=== PATIENT | female | born 1975 | race Caucasian/White ===

== ENCOUNTER 2016-07-13 14:11 | Inpatient (IN) | payer OTHER ==
[2016-07-13 14:27] VITALS: BMI 21.9
--- NOTE | 2016-07-13 14:37 | C.PDOC ---
History Of Present Illness 41-year-old female, presents to the emergency department, sent from dialysis center for clot in fistula. Patients last dialysis was two days ago, comes in today because nurse was unable to access fistula due to clot. No other complaints at this time. Time Seen by Provider: 07/13/16 14:27 Chief Complaint (Nursing): Vascular Access Device Problem History Per: Patient, Other (PMD) History/Exam Limitations: no limitations Current Symptoms Are (Timing): Still Present Past Medical History Reviewed: Historical Data, Nursing Documentation, Vital Signs Vital Signs: Last Vital Signs Temp 98.1 F 07/14/16 06:00 Pulse 78 07/14/16 06:00 Resp 20 07/14/16 06:00 BP 166/72 H 07/14/16 06:00 Pulse Ox 97 07/14/16 03:30 - Medical History PMH: Anemia, Depression, Diabetes, Fractures (RT ANKLE), HTN, Pneumonia, End Stage Renal Disease (M-W-F), Chronic Kidney Disease, Seizures Denies: HIV, Sexually Transmitted Disease - [facility] Procedures FLUOROSCOPY OF INF VENA CAVA USING L OSM CONTRAST, GUIDANCE (05/29/16) INSERTION OF INFUSION DEV INTO INF VENA CAVA, PERC APPROACH (05/29/16) REMOVAL OF OTHER DEVICE ON RIGHT INGUINAL REGION (05/29/16) Family History: States: Unknown Family Hx - Social History Hx Tobacco Use: Yes Hx Alcohol Use: No Hx Substance Use: No - Immunization History Hx Tetanus Toxoid Vaccination: No Hx Influenza Vaccination: Yes Hx Pneumococcal Vaccination: No Review Of Systems Except As Marked, All Systems Reviewed And Found Negative. Constitutional: Negative for: Fever, Chills Cardiovascular: Negative for: Chest Pain Respiratory: Negative for: Cough, Shortness of Breath Gastrointestinal: Negative for: Nausea, Vomiting, Abdominal Pain Musculoskeletal: Negative for: Neck Pain, Back Pain Physical Exam - Physical Exam Appears: Non-toxic, No Acute Distress Skin: Warm, Dry, No Rash Head: Atraumatic, Normacephalic Eye(s): bilateral: Normal Inspection, PERRL Nose: Normal Oral Mucosa: Moist Lips: Normal Appearing Neck: Normal ROM Cardiovascular: Rhythm Regular Respiratory: Normal Breath Sounds, No Accessory Muscle Use Gastrointestinal/Abdominal: Soft, No Tenderness Extremity: Other (RIGHT UPPER EXT: DIALYSIS FISTULA W/ NO BRUIT. NO THRILL. PULSES INTACT) ED Course And Treatment - Laboratory Results Result Diagrams: 07/14/16 07:44 07/14/16 07:44 O2 Sat by Pulse Oximetry: 98 - Radiology CXR: Viewed By Me, Read By Radiologist CXR Interpretation: Yes: Other (PULMONARY VASCULAR CONGESTION) Medical Decision Making Medical Decision Making: Patient evaluated by Dr Finley in ED, states he will arrange for temporary access and prepare for dialysis tomorrow during hospitalization. Dr Velazquez saw patient at bedside in ED; discussed case with hospitalist who will admit patient under his service. Disposition - Disposition Disposition: HOSPITALIZED Disposition Time: 04:00 Condition: GOOD - Clinical Impression Clinical Impression: Complication of arteriovenous dialysis fistula - Scribe Statement The provider has reviewed the documentation as recorded by the Scribe Lisa Romero All medical record entries made by the Scribe were at my direction and personally dictated by me. I have reviewed the chart and agree that the record accurately reflects my personal performance of the history, physical exam, medical decision making, and the department course for this patient. I have also personally directed, reviewed, and agree with the discharge instructions and disposition.
--- NOTE | 2016-07-13 14:43 | CP.PCM.CON ---
History of Present Illness - History of Present Illness History of Present Illness: Admitted with clotted dialysis access. Needs dialysis today Awaiting surgery to evaluate for revision or dialysis cath. Will then schedule dialysis PMH: ESRD HTN DM 2 DIABETIC NEPHROPATHY SEC HPT PSH: AVF AV F REVISION FRACTURE ANKLE CONSULT DICTATED WILL ARRANGE DIALYSIS WHEN POSSIBLE Past Patient History - Infectious Disease Hx of Infectious Diseases: None - Past Medical History & Family History Past Medical History?: Yes - Past Social History Smoking Status: Never Smoked - CARDIAC Hx Hypertension: Yes - PULMONARY Hx Pneumonia: Yes - NEUROLOGICAL Hx Seizures: Yes - HEENT Hx HEENT Problems: Yes Hx Cataracts: Yes (HAD CUATE CATARACT SURGERY) - RENAL Hx Chronic Kidney Disease: Yes - ENDOCRINE/METABOLIC Hx Endocrine Disorders: Yes Hx Diabetes Mellitus Type 2: Yes - HEMATOLOGICAL/ONCOLOGICAL Hx Anemia: Yes Hx Human Immunodeficiency Virus (HIV): No - INTEGUMENTARY Hx Dermatological Problems: No - MUSCULOSKELETAL/RHEUMATOLOGICAL Hx Fractures: Yes (RT ANKLE) - GASTROINTESTINAL Hx Gastrointestinal Disorders: Yes Hx Ulcer: Yes - GENITOURINARY/GYNECOLOGICAL Hx Sexually Transmitted Disorders: No - PSYCHIATRIC Hx Depression: Yes Hx Substance Use: No - SURGICAL HISTORY Hx Surgeries: Yes Hx Arteriovenous Shunt: Yes (NON FUNC MITZI, NEW SIDNEY) Hx Cataract Extraction: Yes Hx Eye Surgery: Yes (RETINA RT) Hx Vascular Access Device: Yes (RIGHT FEMORAL PERMA CATH) - ANESTHESIA Hx Anesthesia: Yes Hx Anesthesia Reactions: No Hx Malignant Hyperthermia: No Meds Allergies/Adverse Reactions: Allergies Allergy/AdvReac Type Severity Reaction Status Date / Time No Known Allergies Allergy Verified 07/13/16 14:23 Results - Vital Signs Recent Vital Signs: Last Vital Signs Temp 98.2 F 07/13/16 14:27 Pulse 72 07/13/16 14:27 Resp 18 07/13/16 14:27 BP 179/67 H 07/13/16 14:27 Pulse Ox 98 07/13/16 14:36
--- NOTE | 2016-07-13 15:04 | CON ---
DATE: 07/13/2016 HISTORY OF PRESENT ILLNESS: The patient is a 41-year-old woman who presents with clotting for a righ t arm AV graft. The graft was recently placed by surgery approximately a month ago and was working w ell at dialysis recently when it clotted at dialysis today in the dialysis unit and the dialysis coul d not be performed. She was sent over to the Emergency Department. She is in now awaiting revision of the graft or dialysis catheter for dialysis which is due today. PAST MEDICAL HISTORY: End-stage renal disease, been on maintenance hemodialysis for 10 years, histor y of diabetic nephropathy, hypertension, and nephrosclerosis with secondary hyperparathyroidism. PAST SURGICAL HISTORY: Previous AV graft. MEDICATIONS: Include Renvela, labetalol, minoxidil, insulin, and Sensipar. She is not sure of all h er medications though. SOCIAL HISTORY: Negative for smoking, alcohol abuse or illicit drug use. FAMILY HISTORY: Negative for chronic kidney disease. REVIEW OF SYSTEMS: The patient was well recently. No shortness of breath on exertion, no chest pain . No fevers, no chills, no new rashes, no visual disturbances or hearing deficits. No change in bow el habits. No diarrhea. Other review of systems is all negative. PHYSICAL EXAMINATION: GENERAL: When seen, she is a well-developed woman in no acute distress. VITAL SIGNS: Blood pressure was 179/67, temperature 98.2, pulse 72, pulse ox 98% on room air. HEENT: She is anicteric. Mouth was clear. NECK: No JVD. LUNGS: Lung tubbs were clear. HEART: Regular rate and rhythm, no murmur. ABDOMEN: Soft, benign. No mass or organomegaly. EXTREMITIES: No peripheral edema. NEUROLOGIC: No focal deficits. She had a right upper arm fistula which a bruit was not audible. LABORATORY DATA: No labs are available as the patient just came to Emergency Department. IMPRESSION: Clotted arteriovenous graft, diabetic nephropathy, hypertension with nephrosclerosis and secondary hyperparathyroidism. PLAN: Surgery is to see the patient as soon as possible, either a catheter placement or revision of the graft and then I will schedule dialysis. I will await labs as well. We will follow up. Gerry Velazquez MD cc: [id number] TT: 07/13/2016 15:03:26 Confirmation # [id number] Dictation # [id number] tn
--- NOTE | 2016-07-13 15:46 | CP.PCM.HP ---
<Monika Monroy - Last Filed: 07/13/16 16:41> History of Present Illness - History of Present Illness History of Present Illness: Internal medicine H & P for Dr. Adithya Monroy, PGY-1 Pt S & E at bedside. 41 F w/PMH sig for HTN, DM, ESRD on HD admitted due to inability to access vasculature at dialysis. Pt attends dialysis MWF- today she was attending when the dialysis center could not access her RUE AVF due to clot- patient was sent to ED for evaluation. Patient was unable to receive dialysis today. Admits to peripheral neuropathy/burning pain in hands/feet, B/L hand numbness, oliguria, occasional constipation, occasional abdominal cramps with movement of torso, fatigue, RILEY, R foot drop, and occasional congestion at night. Denies N/V/F/C , SOB, CP, abdominal pain, changes in vision, diarrhea, dysuria, hematuria, hematochezia, cough, sore throat. PMH: DM, HTN, ESRD on HD (MWF) PSH; RLE AVF, RLE clot thrombolysis, cataract surgery All: NKA SH: Denies ETOH, tobacco, or illicit drug use PMD: Denies currently having one d/t insurance Nephro: [facility] [address] in Present on Admission - Present on Admission Any Indicators Present on Admission: Yes History of DVT/PE: Yes History of Uncontrolled Diabetes: No Urinary Catheter: No Decubitus Ulcer Present: No Review of Systems - Review of Systems All systems: reviewed and no additional remarkable complaints except - Constitutional Constitutional: Fatigue, Lethargy, Weakness. absent: Chills, Fever, Headache - EENT Eyes: absent: Blurred Vision, Change in Vision Ears: absent: Dizziness Nose/Mouth/Throat: Nasal Congestion (at night). absent: Sore Throat - Cardiovascular Cardiovascular: Dyspnea on Exertion. absent: Chest Pain, Leg Edema, Palpitations - Respiratory Respiratory: absent: Cough - Gastrointestinal Gastrointestinal: absent: Abdominal Pain, Hematemesis, Hematochezia, Nausea, Vomiting - Genitourinary Genitourinary: absent: Change in Urinary Stream, Dysuria - Musculoskeletal Musculoskeletal: Back Pain (occasional), Numbness, Tingling - Neurological Neurological: Tingling. absent: Dizziness, Headaches Past Patient History - Infectious Disease Hx of Infectious Diseases: None - Past Medical History & Family History Past Medical History?: Yes - Past Social History Smoking Status: Never Smoked - CARDIAC Hx Hypertension: Yes - PULMONARY Hx Pneumonia: Yes - NEUROLOGICAL Hx Seizures: Yes - HEENT Hx HEENT Problems: Yes Hx Cataracts: Yes (HAD CUATE CATARACT SURGERY) - RENAL Hx Chronic Kidney Disease: Yes - ENDOCRINE/METABOLIC Hx Endocrine Disorders: Yes Hx Diabetes Mellitus Type 2: Yes - HEMATOLOGICAL/ONCOLOGICAL Hx Anemia: Yes Hx Human Immunodeficiency Virus (HIV): No - INTEGUMENTARY Hx Dermatological Problems: No - MUSCULOSKELETAL/RHEUMATOLOGICAL Hx Fractures: Yes (RT ANKLE) - GASTROINTESTINAL Hx Gastrointestinal Disorders: Yes Hx Ulcer: Yes - GENITOURINARY/GYNECOLOGICAL Hx Sexually Transmitted Disorders: No - PSYCHIATRIC Hx Depression: Yes Hx Substance Use: No - SURGICAL HISTORY Hx Surgeries: Yes Hx Arteriovenous Shunt: Yes (NON FUNC MITZI, NEW SIDNEY) Hx Cataract Extraction: Yes Hx Eye Surgery: Yes (RETINA RT) Hx Vascular Access Device: Yes (RIGHT FEMORAL PERMA CATH) - ANESTHESIA Hx Anesthesia: Yes Hx Anesthesia Reactions: No Hx Malignant Hyperthermia: No Meds Allergies/Adverse Reactions: Allergies Allergy/AdvReac Type Severity Reaction Status Date / Time No Known Allergies Allergy Verified 07/13/16 14:23 Physical Exam - Constitutional Appears: Non-toxic, No Acute Distress - Head Exam Head Exam: ATRAUMATIC, NORMAL INSPECTION, NORMOCEPHALIC - Eye Exam Eye Exam: EOMI, Normal appearance, PERRL Pupil Exam: NORMAL ACCOMODATION, PERRL - ENT Exam ENT Exam: Mucous Membranes Moist, Normal Exam - Neck Exam Neck exam: Positive for: Full Rom, Normal Inspection - Respiratory Exam Respiratory Exam: Clear to Auscultation Bilateral, NORMAL BREATHING PATTERN. absent: Chest Wall Tenderness, Prolonged Expiratory Phase, Rales, Rhonchi, Wheezes, Respiratory Distress - Cardiovascular Exam Cardiovascular Exam: REGULAR RHYTHM, +S1, +S2 - GI/Abdominal Exam GI & Abdominal Exam: Normal Bowel Sounds, Soft. absent: Distended, Firm, Guarding, Hernia, Rigid, Tenderness - Extremities Exam Extremities exam: Negative for: pedal edema, tenderness Additional comments: Right upper extremity with AVF with palpable pulsation, no thrill appreciated, no audible bruit appreciated - Back Exam Back exam: FULL ROM, NORMAL INSPECTION. absent: CVA tenderness (L), CVA tenderness (R), paraspinal tenderness - Neurological Exam Neurological exam: Alert, CN II-XII Intact, Oriented x3 - Psychiatric Exam Psychiatric exam: Normal Affect, Normal Mood - Skin Skin Exam: Dry, Intact, Normal Color, Warm Results - Vital Signs Recent Vital Signs: Last Vital Signs Temp 98.2 F 07/13/16 14:27 Pulse 72 07/13/16 14:27 Resp 18 07/13/16 14:27 BP 179/67 H 07/13/16 14:27 Pulse Ox 98 07/13/16 14:36 - Labs Result Diagrams: 07/13/16 15:50 07/13/16 15:50 Assessment & Plan - Assessment and Plan (Free Text) Assessment: ESRD on HD For permacath tomorrow NPO after MN No anticoagulation at this time For AVF revision on Saturday NPO after MN Saturday will Hold anticoagulation Cont home meds: Lanthanum Carbonate, Renvela, Sensipar Vascular surgery consulted-[place] Nephro consulted- [facility] FU EKG FU CXR FU PT/PTT Type and screen FU CBC/CMP DM ISS Cont home med: Lantus Accuchecks HTN Cont home meds: Minoxidil, Clonidine, Labetalol Monitor GI/DVT ppx Pepcid Heparin- to be held after MN for OR in AM SCDs Ambulate Dispo Admit to med surg FU Pre-op evaluations Diabetic/renal diet VS Q4H OOBTC Ambulate OR in AM for permacath OR on Saturday for AVF revision DW attending - Date & Time Date: 07/13/16 Time: 15:45 <Jacek Knowles H - Last Filed: 07/13/16 19:08> Results - Vital Signs Recent Vital Signs: Last Vital Signs Temp 98.7 F 07/13/16 17:02 Pulse 78 07/13/16 17:02 Resp 18 07/13/16 17:02 BP 191/79 H 07/13/16 17:02 Pulse Ox 98 07/13/16 18:08 - Labs Result Diagrams: 07/13/16 15:50 07/13/16 15:50 Labs: Laboratory Results - last 24 hr 07/13/16 07/13/16 15:50 16:55 WBC 4.8 RBC 3.63 L Hgb 11.0 D Hct 33.4 L MCV 91.9 D MCH 30.3 MCHC 33.0 RDW 16.3 H Plt Count 161 MPV 10.1 Neut % (Auto) 44.3 L Lymph % (Auto) 36.6 [place] % (Auto) 11.7 H Eos % (Auto) 5.3 H Baso % (Auto) 2.1 H Neut # 2.1 Lymph # 1.8 [place] # 0.6 Eos # 0.3 Baso # 0.1 PT 12.4 H INR 1.1 APTT 33 Sodium 139 Potassium 5.0 Chloride 94 L Carbon Dioxide 27 Anion Gap 23 H BUN 50 H Creatinine 7.1 H D Est GFR ( Amer) 8 Est GFR (Non-Af Amer) 6 POC Glucose (mg/dL) 140 H Random Glucose 66 Calcium 7.5 L Total Bilirubin 1.0 AST 35 ALT 40 Alkaline Phosphatase 124 Total Protein 8.4 H Albumin 4.6 Globulin 3.8 Albumin/Globulin Ratio 1.2 Blood Type A POSITIVE Antibody Screen Negative Attending/Attestation - Attestation I have personally seen and examined this patient.: Yes I have fully participated in the care of the patient.: Yes I have reviewed all pertinent clinical information: Yes Notes (Text): Medical attending: Patient was seen and examined by me, agree with the above note by the medical assisting program director. The patient was not in any acute distress when I saw her. She was alert and oriented 3, the patient on examination does not have a palpable thrill of the right arm. She was sent to the ER after an unsuccessful attempt to have HD done. The patient has a ready been evaluated by, at this time there is plans for a permacath line tomorrow and then repair of the AVF this comming Saturday. thank you Jacek Knowles
[2016-07-13] MEDS ORDERED: LANTHANUM CARBONATE 500 MG PO SCH (16:00)
[2016-07-13 16:15] LABS: ALB/GLOB RATIO 1.2 (1.0-2.1); CALCIUM 7.5 mg/dl (8.6-10.4); TOTAL PROTEIN 8.4 g/dL (6.3-8.3)
[2016-07-13 16:29] LABS: BASO # 0.1 K/uL (0.0-0.2); BASO % 2.1 % (0.0-2.0); EOS # 0.3 K/uL (0.0-0.7); EOS % 5.3 % (0.0-4.0); HEMATOCRIT 33.4 % (34.0-47.0); LYMPH # 1.8 K/uL (1.0-4.3); LYMPH % 36.6 % (20.0-40.0); MEAN CORPUSCULAR HEMOGLOBIN 30.3 pg (27.0-31.0); MEAN PLATELET VOLUME 10.1 fL (7.2-11.7); MONO # 0.6 K/uL (0.0-0.8); MONO % 11.7 % (0.0-10.0); NRBC % 0.1 % (0.0-2.0); RED CELL DISTRIBUTION WIDTH 16.3 % (11.5-14.5); WHITE BLOOD COUNT 4.8 K/uL (4.8-10.8)
[2016-07-13 16:33] LABS: MEAN CELL VOLUME 91.9 fL (81.0-99.0)
--- NOTE | 2016-07-13 16:36 | RAD ---
HISTORY: pre op COMPARISON: Chest CT from 06/01/2016. FINDINGS: LUNGS: Pulmonary vascular congestion. PLEURA: No significant pleural effusion identified, no pneumothorax apparent. CARDIOVASCULAR: Normal. OSSEOUS STRUCTURES: Mildly increased density of the osseous structures could be related to patient's renal condition. VISUALIZED UPPER ABDOMEN: Upper abdomen is suboptimally evaluated. OTHER FINDINGS: Presumed vascular stent along the right shoulder. Surgical clips in the left axilla. IMPRESSION: Pulmonary vascular congestion.
[2016-07-13] MEDS: (Novolog Mix 70/30) Insulin Aspart/Insulin Aspar 100 units/ml SC SCH ×2 (16:56→21:50)
[2016-07-13 17:16] LABS: INR 1.1
[2016-07-13] MEDS ORDERED: Labetalol Hydrochloride 300 mg Tab PO STA (20:08)
[2016-07-13] MEDS: (Lantus) Insulin Glargine, Recombinant SC SCH (22:00)
[2016-07-13] MEDS ORDERED: (Lantus) Insulin Glargine, Recombinant SC SCH (22:00)
[2016-07-13] MEDS: Labetalol Hydrochloride 300 mg Tab PO SCH (22:00)
[2016-07-13] MEDS ORDERED: HYDROmorphone 1 mg/ml ISec IVP STA (22:50)
[2016-07-14] MEDS ORDERED: Sodium Chloride 0.9% 1,000 ML IV ONE ×2 (07:19)
[2016-07-14] MEDS ORDERED: ceFAZolin IV 1 gm in Dextrose 50 ML IVPB ONE (07:23)
[2016-07-14] MEDS ORDERED: HEPARIN-NS 5,000 UNITS/500 ML 500 ML IV ONE (07:24)
[2016-07-14] MEDS ORDERED: Lidocaine 1% Inj (20ml) ONE (07:24)
[2016-07-14] MEDS: (Novolog Mix 70/30) Insulin Aspart/Insulin Aspar 100 units/ml SC SCH ×4 (07:29→21:37)
[2016-07-14 07:58] LABS: BASO # 0.1 K/uL (0.0-0.2); BASO % 1.2 % (0.0-2.0); EOS # 0.3 K/uL (0.0-0.7); EOS % 4.1 % (0.0-4.0); HEMATOCRIT 32.5 % (34.0-47.0); LYMPH # 1.6 K/uL (1.0-4.3); LYMPH % 25.7 % (20.0-40.0); MEAN CELL VOLUME 92.3 fL (81.0-99.0); MEAN CORPUSCULAR HGB CONC 32.5 g/dL (33.0-37.0); MEAN PLATELET VOLUME 9.9 fL (7.2-11.7); MONO # 0.6 K/uL (0.0-0.8); MONO % 9.9 % (0.0-10.0); RED CELL DISTRIBUTION WIDTH 16.4 % (11.5-14.5); WHITE BLOOD COUNT 6.2 K/uL (4.8-10.8)
[2016-07-14 08:05] LABS: ALB/GLOB RATIO 1.2 (1.0-2.1); BILIRUBIN,TOTAL 0.8 mg/dL (0.2-1.3); TOTAL PROTEIN 7.7 g/dL (6.3-8.3)
[2016-07-14 08:06] LABS: CALCIUM 7.3 mg/dl (8.6-10.4)
[2016-07-14] MEDS ORDERED: Midazolam 2 MG/2 ML VIAL ONE (08:23)
[2016-07-14] MEDS ORDERED: Propofol 10 mg/ml Inj (20 ML) ONE (08:23)
--- NOTE | 2016-07-14 08:35 | CP.PCM.PN ---
Subjective - Date & Time of Evaluation Date of Evaluation: 07/14/16 Time of Evaluation: 08:00 - Subjective Subjective: unable to examine as pt in OR getting permcath cannot obtain ROS Objective - Vital Signs/Intake and Output Vital Signs (last 24 hours): Temp Pulse Resp BP Pulse Ox 98.1 F 78 20 166/72 H 97 07/14/16 06:00 07/14/16 06:00 07/14/16 06:00 07/14/16 06:00 07/14/16 03:30 Intake and Output: 07/14/16 07/14/16 06:59 18:59 Intake Total 120 Balance 120 - Medications Medications: Current Medications Acetaminophen (Tylenol 325mg Tab) 650 mg PO Q6 PRN PRN Reason: Pain, moderate (4-7) Cinacalcet (Sensipar) 90 mg PO DAILY [facility] Last Admin: 07/13/16 17:04 Dose: 90 mg Clonidine HCl (Catapres) 0.2 mg PO BID [facility] Last Admin: 07/13/16 18:16 Dose: 0.2 mg Famotidine (Pepcid) 20 mg PO BID [facility] Last Admin: 07/13/16 18:16 Dose: 20 mg Heparin Sodium (Porcine) (Heparin) 5,000 units SC Q12 [facility] Last Admin: 07/13/16 22:00 Dose: 5,000 units Insulin Aspart (Novolog Mix 70/30 (70/30 Units/Ml)) 0 units SC ACHS [facility] PRN Reason: Protocol Last Admin: 07/14/16 07:29 Dose: Not Given Insulin Glargine (Lantus) 6 unit SC HS [facility] Last Admin: 07/13/16 22:00 Dose: 6 u Labetalol HCl (Normodyne) 300 mg PO Q12 [facility] Last Admin: 07/13/16 22:00 Dose: 300 mg Minoxidil (Minoxidil) 2.5 mg PO BID [facility] Sevelamer Carbonate (Renvela) 800 mg PO WM [facility] - Labs Labs: 07/14/16 07:44 07/14/16 07:44 PT 12.4 SECONDS (9.7-12.2) H 07/13/16 16:55 INR 1.1 07/13/16 16:55 APTT 33 SECONDS (21-34) 07/13/16 16:55 Assessment and Plan - Assessment and Plan (Free Text) Assessment: ESRD with thrombosed chika permcath and HD today orders written
[2016-07-14] MEDS ORDERED: Labetalol 25mg/5ml Syringe ONE (08:41)
--- NOTE | 2016-07-14 08:50 | PCM.SURG1 ---
Surgeon's Initial Post Op Note - Surgeon's Notes Surgeon: Dr. Finley Hat Lining Blocker: Dr. Jasso PGY2 Type of Anesthesia: IV Sedation Anesthesia Administered By: Akash Pre-Operative Diagnosis: Renal Failure Operative Findings: same Post-Operative Diagnosis: same Operation Performed: Insertion of Right Femoral Dialysis Catheter Specimen/Specimens Removed: femoral dialysis catheter inserted Estimated Blood Loss: EBL {In ML}: 5 Blood Products Given: N/A Drains Used: No Drains Post-Op Condition: Good Date of Surgery/Procedure: 07/14/16 Time of Surgery/Procedure: 08:49
--- NOTE | 2016-07-14 09:30 | OP ---
PROCEDURE DATE: 07/14/2016 PREOPERATIVE DIAGNOSIS: Renal failure. POSTOPERATIVE DIAGNOSIS: Renal failure. PROCEDURE CARRIED OUT: Placement of right femoral dialysis catheter. SURGEON: Edward Finley Jr., MD. MANAGER STRATEGIC ALLIANCES: Dr. Jasso, resident. ANESTHESIOLOGIST: Dr. Bustos. INDICATIONS: The patient is a 41-year-old woman who recently had revision surgery on right arm who p resents with a clotted fistula. OPERATIVE FINDINGS: Using ultrasound guidance, the right common femoral vein was punctured. Under f luoroscopic control, the guidewire was advanced centrally. A dilator was passed over this and then t he catheter was positioned with the tip at the inferior vena cava. This was flushed with heparinized saline with good return. Blood loss for the procedure was minimal, less than 5 mL. OPERATION CARRIED OUT: Placement of femoral dialysis catheter. Ultrasound ____ of the groin showed the vein was approximately 13 mm in diameter with normal compress ibility and no evidence of intraluminal thrombosis. Edward Finley Jr., MD cc: [id number] TT: 07/14/2016 09:29:23 jn
[2016-07-14] MEDS: HYDROmorphone 0.5 mg/0.5 ml ISec IVP PRN ×3 (10:04→20:23)
[2016-07-14] MEDS: Labetalol Hydrochloride 300 mg Tab PO SCH ×2 (10:08→21:38)
--- NOTE | 2016-07-14 12:48 | CP.PCM.PN ---
<Herman Pulido - Last Filed: 07/14/16 19:03> Subjective - Date & Time of Evaluation Date of Evaluation: 07/14/16 Time of Evaluation: 10:00 - Subjective Subjective: PGY2 on medicine Dr. Knowles service: Pt seen and examined at bedside this morning after permacath placement. Pt complains pain at permacath site and controlled with medication. Pt otherwise have no other complaints at the time. Objective - Vital Signs/Intake and Output Vital Signs (last 24 hours): Temp Pulse Resp BP Pulse Ox 98.2 F 68 16 135/80 98 07/14/16 11:35 07/14/16 11:35 07/14/16 11:35 07/14/16 12:35 07/14/16 11:50 Intake and Output: 07/14/16 07/14/16 06:59 18:59 Intake Total 120 250 Balance 120 250 - Medications Medications: Current Medications Acetaminophen (Tylenol 325mg Tab) 650 mg PO Q6 PRN PRN Reason: Pain, moderate (4-7) Cinacalcet (Sensipar) 90 mg PO DAILY [facility] Last Admin: 07/14/16 10:08 Dose: Not Given Clonidine HCl (Catapres) 0.2 mg PO Q8H [facility] Last Admin: 07/14/16 10:07 Dose: Not Given Famotidine (Pepcid) 20 mg PO BID [facility] Last Admin: 07/14/16 10:08 Dose: Not Given Heparin Sodium (Porcine) (Heparin) 5,000 units SC Q12 [facility] Last Admin: 07/14/16 10:07 Dose: Not Given Hydromorphone HCl (Dilaudid) 0.5 mg IVP Q3H PRN PRN Reason: Pain, moderate (4-7) Last Admin: 07/14/16 10:04 Dose: 0.5 mg Insulin Aspart (Novolog Mix 70/30 (70/30 Units/Ml)) 0 units SC ACHS [facility] PRN Reason: Protocol Last Admin: 07/14/16 11:39 Dose: Not Given Insulin Glargine (Lantus) 6 unit SC HS [facility] Last Admin: 07/13/16 22:00 Dose: 6 u Labetalol HCl (Normodyne) 300 mg PO Q12 [facility] Last Admin: 07/14/16 10:08 Dose: Not Given Minoxidil (Minoxidil) 2.5 mg PO BID [facility] Last Admin: 07/14/16 10:08 Dose: Not Given Sevelamer Carbonate (Renvela) 800 mg PO [facility] - Labs Labs: 07/14/16 07:44 07/14/16 07:44 PT 12.4 SECONDS (9.7-12.2) H 07/13/16 16:55 INR 1.1 07/13/16 16:55 APTT 33 SECONDS (21-34) 07/13/16 16:55 - Constitutional Appears: Non-toxic, No Acute Distress - Head Exam Head Exam: NORMAL INSPECTION, NORMOCEPHALIC - Eye Exam Eye Exam: Normal appearance Pupil Exam: NORMAL ACCOMODATION - ENT Exam ENT Exam: Mucous Membranes Moist - Respiratory Exam Respiratory Exam: Clear to Ausculation Bilateral, NORMAL BREATHING PATTERN. absent: Rhonchi, Wheezes - Cardiovascular Exam Cardiovascular Exam: REGULAR RHYTHM, +S1, +S2. absent: Gallop, Rubs - GI/Abdominal Exam GI & Abdominal Exam: Soft, Normal Bowel Sounds - Extremities Exam Extremities Exam: absent: Pedal Edema Additional comments: right thigh permacath dressing C/D/I - Neurological Exam Neurological Exam: Alert, Awake, Oriented x3 Assessment and Plan - Assessment and Plan (Free Text) Assessment: ESRD on HD For AVF revision on Saturday will Hold anticoagulation Cont home meds: Lanthanum Carbonate, Renvela, Sensipar Vascular surgery consulted-[facility] Nephro consulted- [facility] HD once 07/14 DM ISS Cont home med: Lantus Accuchecks HTN Cont home meds: Minoxidil, Clonidine, Labetalol Clonidine increased to Q8H from BID Monitor GI/DVT ppx Pepcid Heparin- to be held after SCDs Ambulate Dispo Admit to med surg FU Pre-op evaluations Diabetic/renal diet VS Q4H OOBTC Ambulate OR on Saturday for AVF revision <Jacek Knowles H - Last Filed: 07/15/16 08:13> Objective - Vital Signs/Intake and Output Vital Signs (last 24 hours): Temp Pulse Resp BP Pulse Ox 97.9 F 80 20 180/81 H 95 07/15/16 02:00 07/15/16 02:00 07/15/16 02:00 07/15/16 02:00 07/15/16 02:00 Intake and Output: 07/15/16 07/15/16 06:59 18:59 Intake Total 300 Balance 300 - Medications Medications: Current Medications Acetaminophen (Tylenol 325mg Tab) 650 mg PO Q6 PRN PRN Reason: Pain, moderate (4-7) Cinacalcet (Sensipar) 90 mg PO DAILY [facility] Last Admin: 07/14/16 10:08 Dose: Not Given Clonidine HCl (Catapres) 0.2 mg PO Q8H [facility] Last Admin: 07/15/16 02:21 Dose: 0.2 mg Famotidine (Pepcid) 20 mg PO BID [facility] Last Admin: 07/14/16 17:25 Dose: 20 mg Heparin Sodium (Porcine) (Heparin) 5,000 units SC Q12 [facility] Hydromorphone HCl (Dilaudid) 0.5 mg IVP Q3H PRN PRN Reason: Pain, moderate (4-7) Last Admin: 07/15/16 02:24 Dose: 0.5 mg Insulin Aspart (Novolog Mix 70/30 (70/30 Units/Ml)) 0 units SC ACHS [facility] PRN Reason: Protocol Last Admin: 07/14/16 21:37 Dose: Not Given Insulin Glargine (Lantus) 6 unit SC HS [facility] Last Admin: 07/14/16 21:38 Dose: 6 u Labetalol HCl (Normodyne) 300 mg PO Q12 [facility] Last Admin: 07/14/16 21:38 Dose: 300 mg Minoxidil (Minoxidil) 2.5 mg PO BID [facility] Last Admin: 07/14/16 17:24 Dose: 2.5 mg Sevelamer Carbonate (Renvela) 800 mg PO WM [facility] Last Admin: 07/14/16 17:24 Dose: 800 mg - Labs Labs: 07/15/16 07:09 07/15/16 07:09 PT 12.4 SECONDS (9.7-12.2) H 07/13/16 16:55 INR 1.1 07/13/16 16:55 APTT 33 SECONDS (21-34) 07/13/16 16:55 Attending/Attestation - Attestation I have personally seen and examined this patient.: Yes I have fully participated in the care of the patient.: Yes I have reviewed all pertinent clinical information, including history, physical exam and plan: Yes Notes (Text): Medical Attending: Patient was seen and examined by me. Agree with the above note by the resident. The patient has just had permacath placement. Will be getting HD later this day. This Sunday 07/16 there are plans for revision of the patient's AVF. thank you Jacek Knowles
--- NOTE | 2016-07-14 12:53 | RAD ---
PROCEDURE: Intraoperative fluoroscopy HISTORY: CLOTTED AV SHUNT COMPARISON: Not available TECHNIQUE: Intraoperative fluoroscopy was provided for dialysis catheter insertion. Total time of fluoroscopy was 23.4 seconds. FINDINGS: Two fluoroscopic spot films are submitted. Films are on file for review peer IMPRESSION: Fluoroscopy provided.
[2016-07-14] MEDS: (Lantus) Insulin Glargine, Recombinant SC SCH (21:38)
[2016-07-15] MEDS: HYDROmorphone 0.5 mg/0.5 ml ISec IVP PRN ×3 (02:24→21:06)
[2016-07-15] MEDS: (Novolog Mix 70/30) Insulin Aspart/Insulin Aspar 100 units/ml SC SCH ×4 (07:30→21:11)
[2016-07-15 07:39] LABS: POTASSIUM 4.9 mmol/L (3.6-5.2)
[2016-07-15 07:41] LABS: ALB/GLOB RATIO 1.3 (1.0-2.1); BILIRUBIN,TOTAL 0.9 mg/dL (0.2-1.3); TOTAL PROTEIN 7.6 g/dL (6.3-8.3)
[2016-07-15 07:42] LABS: CALCIUM 8.1 mg/dl (8.6-10.4)
[2016-07-15 07:52] LABS: MEAN PLATELET VOLUME 10.6 fL (7.2-11.7); WHITE BLOOD COUNT 6.4 K/uL (4.8-10.8)
[2016-07-15 07:57] LABS: BASO # 0.1 K/uL (0.0-0.2); BASO % 1.5 % (0.0-2.0); EOS # 0.4 K/uL (0.0-0.7); HEMATOCRIT 32.7 % (34.0-47.0); LYMPH # 1.9 K/uL (1.0-4.3); LYMPH % 29.9 % (20.0-40.0); MEAN CORPUSCULAR HEMOGLOBIN 30.1 pg (27.0-31.0); MEAN CORPUSCULAR HGB CONC 32.7 g/dL (33.0-37.0); MONO # 0.8 K/uL (0.0-0.8); MONO % 11.7 % (0.0-10.0); NRBC % 0.1 % (0.0-2.0); RED CELL DISTRIBUTION WIDTH 15.7 % (11.5-14.5)
[2016-07-15] MEDS: Labetalol Hydrochloride 300 mg Tab PO SCH ×2 (09:02→21:09)
--- NOTE | 2016-07-15 10:25 | CP.PCM.PN ---
<Herman Pulido - Last Filed: 07/15/16 12:38> Subjective - Date & Time of Evaluation Date of Evaluation: 07/16/15 Time of Evaluation: 10:00 - Subjective Subjective: PGY2 on medicine Dr. Knowles service: Patient seen and examined at bedside. S/P insertion of femoral dialysis catheter POD#1. Patient also had HD yesterday. Patient complains pain at femoral catheter site but controlled with pain medications. Patient also complains increased swelling and pain on her right forearm. No other complaints at this time. Objective - Vital Signs/Intake and Output Vital Signs (last 24 hours): Temp Pulse Resp BP Pulse Ox 97.9 F 80 20 180/81 H 95 07/15/16 02:00 07/15/16 02:00 07/15/16 02:00 07/15/16 02:00 07/15/16 02:00 Intake and Output: 07/15/16 07/15/16 06:59 18:59 Intake Total 300 Balance 300 - Medications Medications: Current Medications Acetaminophen (Tylenol 325mg Tab) 650 mg PO Q6 PRN PRN Reason: Pain, moderate (4-7) Cinacalcet (Sensipar) 90 mg PO DAILY [facility] Last Admin: 07/15/16 09:02 Dose: 90 mg Clonidine HCl (Catapres) 0.2 mg PO Q8H [facility] Last Admin: 07/15/16 09:03 Dose: 0.2 mg Famotidine (Pepcid) 20 mg PO BID [facility] Last Admin: 07/15/16 09:03 Dose: 20 mg Heparin Sodium (Porcine) (Heparin) 5,000 units SC Q12 [facility] Hydromorphone HCl (Dilaudid) 0.5 mg IVP Q3H PRN PRN Reason: Pain, moderate (4-7) Last Admin: 07/15/16 02:24 Dose: 0.5 mg Insulin Aspart (Novolog Mix 70/30 (70/30 Units/Ml)) 0 units SC ACHS [facility] PRN Reason: Protocol Last Admin: 07/15/16 07:30 Dose: Not Given Insulin Glargine (Lantus) 6 unit SC HS [facility] Last Admin: 07/14/16 21:38 Dose: 6 u Labetalol HCl (Normodyne) 300 mg PO Q12 [facility] Last Admin: 07/15/16 09:02 Dose: 300 mg Minoxidil (Minoxidil) 2.5 mg PO BID [facility] Last Admin: 07/15/16 09:02 Dose: 2.5 mg Sevelamer Carbonate (Renvela) 800 mg PO TIDCC [facility] - Labs Labs: 07/15/16 07:09 07/15/16 07:09 PT 12.4 SECONDS (9.7-12.2) H 07/13/16 16:55 INR 1.1 07/13/16 16:55 APTT 33 SECONDS (21-34) 07/13/16 16:55 - Constitutional Appears: Non-toxic, No Acute Distress - Head Exam Head Exam: NORMAL INSPECTION, NORMOCEPHALIC - Eye Exam Eye Exam: Normal appearance Pupil Exam: NORMAL ACCOMODATION - ENT Exam ENT Exam: Mucous Membranes Moist - Respiratory Exam Respiratory Exam: Clear to Ausculation Bilateral, NORMAL BREATHING PATTERN. absent: Rhonchi, Wheezes - Cardiovascular Exam Cardiovascular Exam: REGULAR RHYTHM, +S1, +S2. absent: Gallop, Rubs - GI/Abdominal Exam GI & Abdominal Exam: Soft, Normal Bowel Sounds - Extremities Exam Extremities Exam: absent: Pedal Edema Additional comments: right forearm mildly swollen, radial pulse slightly diminished compared to left arm. decreased sensation compared to left forearm. Strength intact. Right femoral catheter site dressing C/D/I - Neurological Exam Neurological Exam: Alert, Awake, Oriented x3 - Psychiatric Exam Psychiatric exam: Normal Mood Assessment and Plan - Assessment and Plan (Free Text) Assessment: ESRD on HD For AVF revision on Saturday will Hold anticoagulation Cont home meds: Lanthanum Carbonate, Renvela, Sensipar Vascular surgery consulted-[place] Nephro consulted- [facility] HD once 07/14 DM ISS Cont home med: Lantus Accuchecks HTN Cont home meds: Minoxidil, Clonidine, Labetalol Clonidine increased to Q8H from BID Monitor GI/DVT ppx Pepcid Heparin on hold for Saturday procedure SCDs Ambulate Dispo Admit to med surg FU Pre-op evaluations Diabetic/renal diet VS Q4H OOBTC Ambulate OR on Saturday for AVF revision <Jacek Knowles H - Last Filed: 07/15/16 14:43> Objective - Vital Signs/Intake and Output Vital Signs (last 24 hours): Temp Pulse Resp BP Pulse Ox 98.7 F 76 20 186/70 H 98 07/15/16 08:00 07/15/16 08:00 07/15/16 08:00 07/15/16 08:00 07/15/16 08:00 Intake and Output: 07/15/16 07/15/16 06:59 18:59 Intake Total 300 Balance 300 - Medications Medications: Current Medications Acetaminophen (Tylenol 325mg Tab) 650 mg PO Q6 PRN PRN Reason: Pain, moderate (4-7) Cinacalcet (Sensipar) 90 mg PO DAILY [facility] Last Admin: 07/15/16 09:02 Dose: 90 mg Clonidine HCl (Catapres) 0.2 mg PO Q8H [facility] Last Admin: 07/15/16 09:03 Dose: 0.2 mg Famotidine (Pepcid) 20 mg PO BID [facility] Last Admin: 07/15/16 09:03 Dose: 20 mg Heparin Sodium (Porcine) (Heparin) 5,000 units SC Q12 [facility] Last Admin: 07/15/16 12:11 Dose: 5,000 units Hydromorphone HCl (Dilaudid) 0.5 mg IVP Q3H PRN PRN Reason: Pain, moderate (4-7) Last Admin: 07/15/16 12:16 Dose: 0.5 mg Insulin Aspart (Novolog Mix 70/30 (70/30 Units/Ml)) 0 units SC ACHS [facility] PRN Reason: Protocol Last Admin: 07/15/16 12:32 Dose: Not Given Insulin Glargine (Lantus) 6 unit SC HS [facility] Last Admin: 07/14/16 21:38 Dose: 6 u Labetalol HCl (Normodyne) 300 mg PO Q12 [facility] Last Admin: 07/15/16 09:02 Dose: 300 mg Minoxidil (Minoxidil) 2.5 mg PO BID [facility] Last Admin: 07/15/16 09:02 Dose: 2.5 mg Sevelamer Carbonate (Renvela) 800 mg PO TIDCC [facility] Last Admin: 07/15/16 12:10 Dose: 800 mg - Labs Labs: 07/15/16 07:09 07/15/16 13:22 PT 12.4 SECONDS (9.7-12.2) H 07/13/16 16:55 INR 1.1 03/24/17 16:55 APTT 33 SECONDS (21-34) 07/13/16 16:55 Attending/Attestation - Attestation I have personally seen and examined this patient.: Yes I have fully participated in the care of the patient.: Yes I have reviewed all pertinent clinical information, including history, physical exam and plan: Yes Notes (Text): 07/15/16 14:42 Medical Attending: Patient was seen and examined by me. Agree with the above note. The patient explains she feels much better after getting HD. Currently has dialysis cathter Doreen Rodriguez for revision of her AVF. Currently feels well. thank you Jacek Knowles
--- NOTE | 2016-07-15 12:47 | CP.PCM.PN ---
Subjective - Date & Time of Evaluation Date of Evaluation: 07/15/16 Time of Evaluation: 12:46 - Subjective Subjective: for lysis of fistula saturday Objective - Vital Signs/Intake and Output Vital Signs (last 24 hours): Temp Pulse Resp BP Pulse Ox 98.7 F 76 20 186/70 H 98 07/15/16 08:00 07/15/16 08:00 07/15/16 08:00 07/15/16 08:00 07/15/16 08:00 Intake and Output: 07/15/16 07/15/16 06:59 18:59 Intake Total 300 Balance 300 - Medications Medications: Current Medications Acetaminophen (Tylenol 325mg Tab) 650 mg PO Q6 PRN PRN Reason: Pain, moderate (4-7) Cinacalcet (Sensipar) 90 mg PO DAILY [facility] Last Admin: 07/15/16 09:02 Dose: 90 mg Clonidine HCl (Catapres) 0.2 mg PO Q8H [facility] Last Admin: 07/15/16 09:03 Dose: 0.2 mg Famotidine (Pepcid) 20 mg PO BID [facility] Last Admin: 07/15/16 09:03 Dose: 20 mg Heparin Sodium (Porcine) (Heparin) 5,000 units SC Q12 [facility] Last Admin: 07/15/16 12:11 Dose: 5,000 units Hydromorphone HCl (Dilaudid) 0.5 mg IVP Q3H PRN PRN Reason: Pain, moderate (4-7) Last Admin: 07/15/16 12:16 Dose: 0.5 mg Insulin Aspart (Novolog Mix 70/30 (70/30 Units/Ml)) 0 units SC ACHS [facility] PRN Reason: Protocol Last Admin: 07/15/16 12:32 Dose: Not Given Insulin Glargine (Lantus) 6 unit SC HS [facility] Last Admin: 07/14/16 21:38 Dose: 6 u Labetalol HCl (Normodyne) 300 mg PO Q12 [facility] Last Admin: 07/15/16 09:02 Dose: 300 mg Minoxidil (Minoxidil) 2.5 mg PO BID [facility] Last Admin: 07/15/16 09:02 Dose: 2.5 mg Sevelamer Carbonate (Renvela) 800 mg PO TIDCC [facility] Last Admin: 07/15/16 12:10 Dose: 800 mg - Labs Labs: 03/26/17 07:09 07/15/16 07:09 PT 12.4 SECONDS (9.7-12.2) H 07/13/16 16:55 INR 1.1 07/13/16 16:55 APTT 33 SECONDS (21-34) 07/13/16 16:55
[2016-07-15 12:51] LABS: POTASSIUM 6.2 mmol/L (3.6-5.2)
[2016-07-15 12:53] LABS: CALCIUM 8.4 mg/dl (8.6-10.4); PHOSPHOROUS 7.8 mg/dL (2.5-4.5)
[2016-07-15 13:37] LABS: POTASSIUM 5.8 mmol/L (3.6-5.2)
[2016-07-15 13:40] LABS: CALCIUM 8.3 mg/dl (8.6-10.4)
[2016-07-15] MEDS ORDERED: Sod Polystyrene Sulf 15 gm/60 ml Oral Susp PO ONE (14:15)
[2016-07-15] MEDS: (Lantus) Insulin Glargine, Recombinant SC SCH (21:13)
[2016-07-16] MEDS: HYDROmorphone 0.5 mg/0.5 ml ISec IVP PRN ×5 (05:56→21:15)
[2016-07-16] MEDS: (Novolog Mix 70/30) Insulin Aspart/Insulin Aspar 100 units/ml SC SCH ×4 (08:04→22:20)
[2016-07-16 09:31] LABS: BASO # 0.1 K/uL (0.0-0.2); BASO % 1.4 % (0.0-2.0); EOS # 0.3 K/uL (0.0-0.7); EOS % 6.5 % (0.0-4.0); LYMPH # 1.5 K/uL (1.0-4.3); LYMPH % 28.5 % (20.0-40.0); MEAN CELL VOLUME 92.2 fL (81.0-99.0); MEAN CORPUSCULAR HEMOGLOBIN 29.9 pg (27.0-31.0); MEAN CORPUSCULAR HGB CONC 32.5 g/dL (33.0-37.0); MEAN PLATELET VOLUME 10.2 fL (7.2-11.7); MONO # 0.5 K/uL (0.0-0.8); MONO % 9.8 % (0.0-10.0); NRBC % 0.1 % (0.0-2.0); RED CELL DISTRIBUTION WIDTH 16.2 % (11.5-14.5); WHITE BLOOD COUNT 5.1 K/uL (4.8-10.8)
[2016-07-16 09:44] LABS: POTASSIUM 5.4 mmol/L (3.6-5.2)
[2016-07-16 09:46] LABS: ALB/GLOB RATIO 1.3 (1.0-2.1); BILIRUBIN,TOTAL 0.6 mg/dL (0.2-1.3); CALCIUM 7.8 mg/dl (8.6-10.4); TOTAL PROTEIN 7.5 g/dL (6.3-8.3)
--- NOTE | 2016-07-16 10:34 | CP.PCM.PN ---
<Monika Monroy - Last Filed: 07/16/16 10:32> Subjective - Date & Time of Evaluation Date of Evaluation: 07/16/16 Time of Evaluation: 07:30 - Subjective Subjective: Internal medicine progress note for Dr. Marco Antonio Monroy, PGY-1 Pt S & E at bedside. Pt c/o whole body itching overnight, continues to have occasional whole body pain- was continued on home pain regimen. No other complaints overnight, was NPO after MN for OR today. Objective - Vital Signs/Intake and Output Vital Signs (last 24 hours): Temp Pulse Resp BP Pulse Ox 98.1 F 70 18 132/60 98 07/16/16 08:50 07/16/16 08:50 07/16/16 08:50 07/16/16 10:20 07/16/16 08:50 Intake and Output: 07/16/16 07/16/16 06:59 18:59 Intake Total 500 Balance 500 - Medications Medications: Current Medications Acetaminophen (Tylenol 325mg Tab) 650 mg PO Q6 PRN PRN Reason: Pain, moderate (4-7) Cinacalcet (Sensipar) 90 mg PO DAILY [facility] Last Admin: 07/15/16 09:02 Dose: 90 mg Clonidine HCl (Catapres) 0.2 mg PO Q8H [facility] Last Admin: 07/16/16 01:56 Dose: 0.2 mg Diphenhydramine HCl (Benadryl) 25 mg PO Q8H PRN PRN Reason: Itching / Pruritus Famotidine (Pepcid) 20 mg PO BID [facility] Last Admin: 07/15/16 17:09 Dose: 20 mg Heparin Sodium (Porcine) (Heparin) 5,000 units SC Q12 [facility] Last Admin: 07/15/16 12:11 Dose: 5,000 units Hydromorphone HCl (Dilaudid) 0.5 mg IVP Q3H PRN PRN Reason: Pain, moderate (4-7) Last Admin: 07/16/16 05:56 Dose: 0.5 mg Insulin Aspart (Novolog Mix 70/30 (70/30 Units/Ml)) 0 units SC ACHS [facility] PRN Reason: Protocol Last Admin: 07/16/16 08:04 Dose: Not Given Insulin Glargine (Lantus) 6 unit SC HS [facility] Last Admin: 07/15/16 21:13 Dose: 6 u Labetalol HCl (Normodyne) 300 mg PO Q12 [facility] Last Admin: 07/15/16 21:09 Dose: 300 mg Minoxidil (Minoxidil) 2.5 mg PO BID [facility] Last Admin: 07/15/16 17:10 Dose: 2.5 mg Sevelamer Carbonate (Renvela) 800 mg PO TIDCC [facility] Last Admin: 07/15/16 17:09 Dose: 800 mg - Labs Labs: 07/16/16 09:26 07/16/16 09:26 PT 12.4 SECONDS (9.7-12.2) H 07/13/16 16:55 INR 1.1 07/13/16 16:55 APTT 33 SECONDS (21-34) 07/13/16 16:55 - Constitutional Appears: Non-toxic, No Acute Distress - Head Exam Head Exam: ATRAUMATIC, NORMAL INSPECTION, NORMOCEPHALIC - Eye Exam Eye Exam: EOMI, Normal appearance, PERRL Pupil Exam: NORMAL ACCOMODATION, PERRL - ENT Exam ENT Exam: Mucous Membranes Moist, Normal Exam - Neck Exam Neck Exam: Full ROM, Normal Inspection - Respiratory Exam Respiratory Exam: Clear to Ausculation Bilateral, NORMAL BREATHING PATTERN. absent: Chest Wall Tenderness, Decreased Breath Sounds, Prolonged Expiratory Phase, Rales, Rhonchi, Wheezes, Stridor - Cardiovascular Exam Cardiovascular Exam: REGULAR RHYTHM, +S1, +S2 - GI/Abdominal Exam GI & Abdominal Exam: Soft, Normal Bowel Sounds. absent: Tenderness - Extremities Exam Extremities Exam: Full ROM, Normal Inspection - Back Exam Back Exam: NORMAL INSPECTION - Neurological Exam Neurological Exam: Alert, Awake, CN II-XII Intact, Oriented x3 - Psychiatric Exam Psychiatric exam: Normal Affect, Normal Mood - Skin Skin Exam: Dry, Intact, Normal Color, Warm Assessment and Plan - Assessment and Plan (Free Text) Assessment: ESRD on HD -AVF thrombosis Anticoagulation held Cont home meds: Lanthanum Carbonate, Renvela, Sensipar Vascular surgery consulted-[facility] - OR today for AVF thrombolysis Nephro consulted- [facility]- HD MWF Started Benadryl 25mg Q8H PRN itching DM ISS Cont home med: Lantus Accuchecks HTN Cont home meds: Minoxidil, Clonidine, Labetalol Clonidine increased to Q8H from BID Monitor GI/DVT ppx Pepcid Heparin on hold for OR today SCDs Ambulate Dispo OR today Post OR mgmt as per vascular surgery Diabetic/renal diet Ambulate DW attending <Simeon Dickinson - Last Filed: 07/17/16 13:52> Objective - Vital Signs/Intake and Output Vital Signs (last 24 hours): Temp Pulse Resp BP Pulse Ox 97.4 F L 72 20 216/72 H 98 07/17/16 08:00 07/17/16 08:00 07/17/16 08:00 07/17/16 08:00 07/17/16 08:00 Intake and Output: 07/17/16 07/17/16 06:59 18:59 Intake Total 540 400 Balance 540 400 - Medications Medications: Current Medications Acetaminophen (Tylenol 325mg Tab) 650 mg PO Q6 PRN PRN Reason: Pain, moderate (4-7) Cinacalcet (Sensipar) 90 mg PO DAILY [facility] Last Admin: 07/17/16 09:31 Dose: 90 mg Clonidine HCl (Catapres) 0.3 mg PO Q8H [facility] Last Admin: 07/17/16 11:04 Dose: Not Given Diphenhydramine HCl (Benadryl) 25 mg PO Q8H PRN PRN Reason: Itching / Pruritus Last Admin: 07/17/16 08:41 Dose: 25 mg Epoetin Dewey (Procrit) 10,000 unit IV MWF [facility] Famotidine (Pepcid) 20 mg PO DAILY [facility] Last Admin: 07/17/16 09:32 Dose: 20 mg Heparin Sodium (Porcine) (Heparin) 5,000 units SC Q12 [facility] Last Admin: 07/17/16 09:32 Dose: 5,000 units Hydromorphone HCl (Dilaudid) 0.5 mg IVP Q3H PRN PRN Reason: Pain, moderate (4-7) Last Admin: 07/17/16 08:41 Dose: 0.5 mg Insulin Aspart (Novolog) 0 unit SC ACHS [facility] PRN Reason: Protocol Last Admin: 07/17/16 11:53 Dose: 2 unit Insulin Glargine (Lantus) 6 unit SC HS [facility] Last Admin: 07/16/16 22:20 Dose: 6 u Labetalol HCl (Normodyne) 300 mg PO Q12 [facility] Minoxidil (Loniten) 10 mg PO Q12H [facility] Last Admin: 07/17/16 08:32 Dose: 10 mg Sevelamer Carbonate (Renvela) 2,400 mg PO TIDCC [facility] Last Admin: 07/17/16 13:04 Dose: 2,400 mg - Labs Labs: 07/17/16 11:24 07/17/16 11:24 PT 12.4 SECONDS (9.7-12.2) H 07/13/16 16:55 INR 1.1 07/13/16 16:55 APTT 33 SECONDS (21-34) 07/13/16 16:55 Attending/Attestation - Attestation I have personally seen and examined this patient.: Yes I have fully participated in the care of the patient.: Yes I have reviewed all pertinent clinical information, including history, physical exam and plan: Yes Notes (Text): 07/17/16 13:52 Patient was seen and examined at bedside with the resident Patient is for hemodialysis today Plan for the thrombectomy as per vascular surgery I agree with the above history and physical and assessment/plan by the resident
[2016-07-16] MEDS: Labetalol Hydrochloride 300 mg Tab PO SCH ×2 (10:55→22:18)
--- NOTE | 2016-07-16 11:43 | CP.PCM.PN ---
Subjective - Date & Time of Evaluation Date of Evaluation: 07/16/16 Time of Evaluation: 11:41 - Subjective Subjective: Seen at dialysis now BP stable To Uf 3000ml For av f thrombectomy today post HD c/o pruritis Phos levels have been elevated No n, v, SOB, HAs, diarrhea Objective - Vital Signs/Intake and Output Vital Signs (last 24 hours): Temp Pulse Resp BP Pulse Ox 98.1 F 70 18 132/62 98 07/16/16 08:50 07/16/16 08:50 07/16/16 08:50 07/16/16 11:20 07/16/16 08:50 Intake and Output: 07/16/16 07/16/16 06:59 18:59 Intake Total 500 Balance 500 - Medications Medications: Current Medications Acetaminophen (Tylenol 325mg Tab) 650 mg PO Q6 PRN PRN Reason: Pain, moderate (4-7) Cinacalcet (Sensipar) 90 mg PO DAILY [facility] Last Admin: 07/16/16 10:56 Dose: Not Given Clonidine HCl (Catapres) 0.2 mg PO Q8H [facility] Last Admin: 07/16/16 10:55 Dose: Not Given Diphenhydramine HCl (Benadryl) 25 mg PO Q8H PRN PRN Reason: Itching / Pruritus Epoetin Dewey (Procrit) 10,000 unit IV MWF [facility] Famotidine (Pepcid) 20 mg PO BID [facility] Last Admin: 07/16/16 10:55 Dose: Not Given Heparin Sodium (Porcine) (Heparin) 5,000 units SC Q12 [facility] Last Admin: 07/15/16 12:11 Dose: 5,000 units Hydromorphone HCl (Dilaudid) 0.5 mg IVP Q3H PRN PRN Reason: Pain, moderate (4-7) Last Admin: 07/16/16 05:56 Dose: 0.5 mg Insulin Aspart (Novolog Mix 70/30 (70/30 Units/Ml)) 0 units SC ACHS [facility] PRN Reason: Protocol Last Admin: 07/16/16 08:04 Dose: Not Given Insulin Glargine (Lantus) 6 unit SC HS [facility] Last Admin: 07/15/16 21:13 Dose: 6 u Labetalol HCl (Normodyne) 300 mg PO Q12 [facility] Last Admin: 07/16/16 10:55 Dose: Not Given Minoxidil (Minoxidil) 2.5 mg PO BID [facility] Last Admin: 07/16/16 10:55 Dose: Not Given Sevelamer Carbonate (Renvela) 2,400 mg PO TIDCC [facility] - Labs Labs: 07/16/16 09:26 07/16/16 09:26 PT 12.4 SECONDS (9.7-12.2) H 07/13/16 16:55 INR 1.1 07/13/16 16:55 APTT 33 SECONDS (21-34) 07/13/16 16:55 - Constitutional Appears: No Acute Distress, Chronically Ill - Head Exam Head Exam: ATRAUMATIC, NORMAL INSPECTION - Eye Exam Eye Exam: EOMI, Normal appearance - Neck Exam Neck Exam: Normal Inspection. absent: Tenderness - Respiratory Exam Respiratory Exam: Clear to Ausculation Bilateral, NORMAL BREATHING PATTERN - Cardiovascular Exam Cardiovascular Exam: REGULAR RHYTHM, +S1 - GI/Abdominal Exam GI & Abdominal Exam: Soft. absent: Tenderness - Extremities Exam Extremities Exam: Normal Inspection. absent: Tenderness - Neurological Exam Neurological Exam: Awake, CN II-XII Intact - Skin Skin Exam: Dry, Warm Assessment and Plan (1) AV fistula occlusion Status: Acute (2) ESRD on hemodialysis Status: Acute (3) HTN (hypertension) Status: Acute (4) Hyperkalemia Status: Acute (5) Type 2 diabetes mellitus with diabetic nephropathy Status: Acute - Assessment and Plan (Free Text) Plan: Dialysis now UF 3000ml Same BP meds AV F thrombectomy later
[2016-07-16] MEDS ORDERED: HYDROmorphone 0.5 mg/0.5 ml ISec IVP PRN (13:04)
[2016-07-16] MEDS ORDERED: HEPARIN-NS 5,000 UNITS/500 ML 500 ML IV ONE ×2 (13:30→14:54)
[2016-07-16] MEDS ORDERED: Iodixanol 320 MG/ML 200 ML BOTTLE IV ONE (13:30)
[2016-07-16] MEDS ORDERED: Sodium Chloride 0.9% 1,000 ML IV ONE (13:45)
[2016-07-16] MEDS ORDERED: Midazolam 2 MG/2 ML VIAL ONE (13:48)
[2016-07-16] MEDS ORDERED: Propofol 10 mg/ml Inj (20 ML) ONE (13:49)
[2016-07-16] MEDS ORDERED: Lidocaine Hydrochloride 5 ML INJ ONE (13:50)
[2016-07-16] MEDS ORDERED: Lidocaine 1% Inj (20ml) ONE (13:57)
[2016-07-16] MEDS ORDERED: ceFAZolin IV 1 gm in Dextrose 50 ML IVPB ONE (13:59)
[2016-07-16] MEDS ORDERED: Iohexol 240 200 ML IJ ONE (15:22)
[2016-07-16] MEDS ORDERED: Sodium Chloride 0.9% 500 ML IV ONE (16:02)
--- NOTE | 2016-07-16 16:16 | PCM.SURG1 ---
Surgeon's Initial Post Op Note - Surgeon's Notes Surgeon: Dr. Finley Maintenance Mechanic Helper: Dr. Jasso, PGY2 Type of Anesthesia: IV Sedation Pre-Operative Diagnosis: Clotted AV Fistula Operative Findings: same Post-Operative Diagnosis: same Operation Performed: Right Arm Fistulogram with Thrombolysis, Balloon Angioplasty, and Stenting Specimen/Specimens Removed: 2 stents inserted Estimated Blood Loss: EBL {In ML}: 50 Blood Products Given: N/A Drains Used: No Drains Post-Op Condition: Good Date of Surgery/Procedure: 07/16/16 Time of Surgery/Procedure: 16:16
[2016-07-16] MEDS: (Lantus) Insulin Glargine, Recombinant SC SCH (22:20)
[2016-07-17] MEDS: (Novolog Mix 70/30) Insulin Aspart/Insulin Aspar 100 units/ml SC SCH (07:57)
--- NOTE | 2016-07-17 08:02 | OP ---
PROCEDURE DATE: 07/16/2016 PREOPERATIVE DIAGNOSIS: Clotted fistula, right arm. POSTOPERATIVE DIAGNOSIS: Clotted fistula, right arm. PROCEDURE CARRIED OUT: Fistulogram, right arm, thrombolysis using tPA, balloon angioplasty and stenting of right arm AV fistula. SURGEON: Edward Finley Jr., M.D. FLANGING MACHINE OPERATOR: Dr. plunkett resident. ANESTHESIOLOGIST: Dr. Irving. ANESTHESIA: Local sedation. INDICATIONS: A 41-year-old woman with renal insufficiency; clotted fistula, right arm. Ultrasound imaging preoperatively revealed that the basilic vein portion was opened and the proximal portion was opened. There was a clot in the mid portion of it. OPERATIVE FINDINGS: Initially, we carried out our fistulogram. It was difficult to cannulate the efferent limb and we initially instilled tPA into the fistula. After this was done, in a retrograde manner, we were able to cross the fistula. At this point, we had wires khalif-crossing the area and injected an additional 2 mg of tPA. After this had been done, we successfully dilated the anastomosis between the cephalic vein and the basilic vein, but this did not result in good flow. We then used a Lisa balloon embolectomy catheter over the wire to retrieve any clot. After this had been done, we then initially ballooned this area again, but with poor flow coming out the other end , so at this point, we opted for placement of a 6 mm x 20 mm stent. This was successfully deployed and there was some question as to the terminal portion of it, so an additional 6 mm x 30 mm stent was deployed inside of this. This was touched up with a 6 mm x 40 mm balloon. The completion angiogram showed no evidence of any arterial stenosis, no evidence of any central vein stenosis and good and brisk flow through the fistula. The residual clot was in the thrombosed superior portion of the fistula. It did not impair the blood flow. Pressure was then applied to the puncture sites and 7-0 Bypro-Felice suture was placed in the skin. PROCEDURE CARRIED OUT: Fistulogram, right arm; thrombolytic therapy with tPA, balloon angioplasty and stenting of the fistula. Edward Finley Jr., MD cc: 56 TT: 07/17/2016 08:02:09 jocelyn CUTLER
[2016-07-17] MEDS: Labetalol Hydrochloride 300 mg Tab PO SCH ×3 (08:34→22:13)
[2016-07-17] MEDS: HYDROmorphone 0.5 mg/0.5 ml ISec IVP PRN ×3 (08:41→21:42)
--- NOTE | 2016-07-17 09:37 | CP.PCM.PN ---
Subjective - Date & Time of Evaluation Date of Evaluation: 07/17/16 Time of Evaluation: 06:55 - Subjective Subjective: General Surgery Pt S&E, NAEO. No Hand pain. No complaints at this time. Objective - Vital Signs/Intake and Output Vital Signs (last 24 hours): Temp Pulse Resp BP Pulse Ox 97.4 F L 72 20 216/72 H 98 07/17/16 08:00 07/17/16 08:00 07/17/16 08:00 07/17/16 08:00 07/17/16 08:00 Intake and Output: 07/17/16 07/17/16 06:59 18:59 Intake Total 540 Balance 540 - Medications Medications: Current Medications Acetaminophen (Tylenol 325mg Tab) 650 mg PO Q6 PRN PRN Reason: Pain, moderate (4-7) Cinacalcet (Sensipar) 90 mg PO DAILY [facility] Last Admin: 07/17/16 09:31 Dose: 90 mg Clonidine HCl (Catapres) 0.2 mg PO Q8H [facility] Last Admin: 07/17/16 08:34 Dose: 0.2 mg Diphenhydramine HCl (Benadryl) 25 mg PO Q8H PRN PRN Reason: Itching / Pruritus Last Admin: 07/17/16 08:41 Dose: 25 mg Epoetin Dewey (Procrit) 10,000 unit IV MWF [facility] Famotidine (Pepcid) 20 mg PO DAILY [facility] Last Admin: 07/17/16 09:32 Dose: 20 mg Heparin Sodium (Porcine) (Heparin) 5,000 units SC Q12 [facility] Last Admin: 07/17/16 09:32 Dose: 5,000 units Hydromorphone HCl (Dilaudid) 0.5 mg IVP Q3H PRN PRN Reason: Pain, moderate (4-7) Last Admin: 07/17/16 08:41 Dose: 0.5 mg Insulin Aspart (Novolog Mix 70/30 (70/30 Units/Ml)) 0 units SC ACHS [facility] PRN Reason: Protocol Last Admin: 07/17/16 07:57 Dose: Not Given Insulin Glargine (Lantus) 6 unit SC HS [facility] Last Admin: 07/16/16 22:20 Dose: 6 u Labetalol HCl (Normodyne) 300 mg PO Q12 [facility] Last Admin: 07/17/16 09:31 Dose: Not Given Minoxidil (Loniten) 10 mg PO Q12H [facility] Last Admin: 07/17/16 08:32 Dose: 10 mg Sevelamer Carbonate (Renvela) 2,400 mg PO TIDCC [facility] Last Admin: 07/17/16 08:33 Dose: 2,400 mg - Labs Labs: 07/16/16 09:26 07/16/16 09:26 PT 12.4 SECONDS (9.7-12.2) H 07/13/16 16:55 INR 1.1 07/13/16 16:55 APTT 33 SECONDS (21-34) 07/13/16 16:55 - Constitutional Appears: Non-toxic, No Acute Distress - Head Exam Head Exam: ATRAUMATIC, NORMOCEPHALIC - Respiratory Exam Respiratory Exam: NORMAL BREATHING PATTERN. absent: Respiratory Distress - Extremities Exam Additional comments: RUE dressing C/D/I. + Thrill palpable - Neurological Exam Neurological Exam: Alert, Awake - Skin Skin Exam: Dry, Warm Assessment and Plan - Assessment and Plan (Free Text) Assessment: 41F with Clotted RUE AVF, S/P thrombolysis, angioplasty, and stenting, POD# 1 Plan: See if AVF functions for dialysis prior to removing groin HD catheter. D/W Dr. Tushar Boo PGY3
--- NOTE | 2016-07-17 09:53 | CP.PCM.PN ---
<Monika Monroy - Last Filed: 07/17/16 10:34> Subjective - Date & Time of Evaluation Date of Evaluation: 07/17/16 Time of Evaluation: 07:05 - Subjective Subjective: Internal medicine progress note for Dr. Marco Antonio Monroy, PGY-1 Pt S & E at bedside. Pt reports some discomfort of RUQ when flexing- otherwise pain is well controlled with pain regimen. Also reports R groin femoral insertion site with some pain. Requesting that HTN medications be given on same schedule as home as BP is high- pt reports she takes all 3 medications together at 8am and 8pm. Otherwise, is doing well, denies N/V/F/C, SOB, CP, tolerating diet. Slept ok. Objective - Vital Signs/Intake and Output Vital Signs (last 24 hours): Temp Pulse Resp BP Pulse Ox 97.4 F L 72 20 216/72 H 98 07/17/16 08:00 07/17/16 08:00 07/17/16 08:00 07/17/16 08:00 07/17/16 08:00 Intake and Output: 07/17/16 07/17/16 06:59 18:59 Intake Total 540 Balance 540 - Medications Medications: Current Medications Acetaminophen (Tylenol 325mg Tab) 650 mg PO Q6 PRN PRN Reason: Pain, moderate (4-7) Cinacalcet (Sensipar) 90 mg PO DAILY [facility] Last Admin: 07/17/16 09:31 Dose: 90 mg Clonidine HCl (Catapres) 0.2 mg PO Q8H [facility] Last Admin: 07/17/16 08:34 Dose: 0.2 mg Diphenhydramine HCl (Benadryl) 25 mg PO Q8H PRN PRN Reason: Itching / Pruritus Last Admin: 07/17/16 08:41 Dose: 25 mg Epoetin Dewey (Procrit) 10,000 unit IV MWF [facility] Famotidine (Pepcid) 20 mg PO DAILY [facility] Last Admin: 07/17/16 09:32 Dose: 20 mg Heparin Sodium (Porcine) (Heparin) 5,000 units SC Q12 [facility] Last Admin: 07/17/16 09:32 Dose: 5,000 units Hydromorphone HCl (Dilaudid) 0.5 mg IVP Q3H PRN PRN Reason: Pain, moderate (4-7) Last Admin: 07/17/16 08:41 Dose: 0.5 mg Insulin Aspart (Novolog Mix 70/30 (70/30 Units/Ml)) 0 units SC ACHS [facility] PRN Reason: Protocol Last Admin: 07/17/16 07:57 Dose: Not Given Insulin Glargine (Lantus) 6 unit SC HS [facility] Last Admin: 07/16/16 22:20 Dose: 6 u Labetalol HCl (Normodyne) 300 mg PO Q12 [facility] Last Admin: 07/17/16 09:31 Dose: Not Given Minoxidil (Loniten) 10 mg PO Q12H [facility] Last Admin: 07/17/16 08:32 Dose: 10 mg Sevelamer Carbonate (Renvela) 2,400 mg PO TIDCC [facility] Last Admin: 07/17/16 08:33 Dose: 2,400 mg - Labs Labs: 07/16/16 09:26 07/16/16 09:26 PT 12.4 SECONDS (9.7-12.2) H 07/13/16 16:55 INR 1.1 07/13/16 16:55 APTT 33 SECONDS (21-34) 07/13/16 16:55 - Constitutional Appears: Non-toxic, No Acute Distress - Head Exam Head Exam: ATRAUMATIC, NORMAL INSPECTION, NORMOCEPHALIC - Eye Exam Eye Exam: EOMI, Normal appearance, PERRL Pupil Exam: NORMAL ACCOMODATION, PERRL - ENT Exam ENT Exam: Mucous Membranes Moist, Normal Exam - Neck Exam Neck Exam: Full ROM, Normal Inspection - Respiratory Exam Respiratory Exam: Clear to Ausculation Bilateral, NORMAL BREATHING PATTERN. absent: Rales, Rhonchi, Wheezes - Cardiovascular Exam Cardiovascular Exam: REGULAR RHYTHM, +S1, +S2 - GI/Abdominal Exam GI & Abdominal Exam: Soft, Normal Bowel Sounds. absent: Distended, Tenderness - Extremities Exam Additional comments: Right groin with femoral catheter - insertion site tender, no ecchymoses, hematomas, or masses noted - Neurological Exam Neurological Exam: Alert, Awake, CN II-XII Intact, Oriented x3 - Psychiatric Exam Psychiatric exam: Normal Affect, Normal Mood - Skin Skin Exam: Dry, Intact, Normal Color, Warm Assessment and Plan - Assessment and Plan (Free Text) Assessment: ESRD on HD -POD#1 s/p RUE AVF thrombolysis 2/2 AVF thrombosis Anticoagulation held Cont home meds: Lanthanum Carbonate, Renvela, Sensipar Vasc surg recs- POD#1 s/p RUQ AVF thrombolysis- See if AVF functions for dialysis prior to removing groin HD catheter Nephro consulted- [facility]- HD MWF Started Benadryl 25mg Q8H PRN itching DM ISS Cont home med: Lantus Accuchecks HTN BP 216/72 Cont home meds: Minoxidil, Clonidine, Labetalol Clonidine increased to Q8H from BID Minoxidil increased from 2.5 to 10mg per pt Scheduled HTN medications to be administered on same schedule as home, per pt request Monitor GI/DVT ppx Pepcid Heparin SCDs Ambulate Dispo Con current mgmt See if RUQ AVF can be use for dialysis tomorrow Possible d/c after dialysis and HD fem catheter has been removed Diabetic/renal diet Ambulate DW attending <Simeon Dickinson - Last Filed: 07/17/16 18:14> Objective - Vital Signs/Intake and Output Vital Signs (last 24 hours): Temp Pulse Resp BP Pulse Ox 97.7 F 73 20 181/71 H 97 07/17/16 16:34 07/17/16 16:34 07/17/16 16:34 07/17/16 16:34 07/17/16 16:34 Intake and Output: 07/17/16 07/17/16 06:59 18:59 Intake Total 540 400 Balance 540 400 - Medications Medications: Current Medications Acetaminophen (Tylenol 325mg Tab) 650 mg PO Q6 PRN PRN Reason: Pain, moderate (4-7) Cinacalcet (Sensipar) 90 mg PO DAILY [facility] Last Admin: 07/17/16 09:31 Dose: 90 mg Clonidine HCl (Catapres) 0.3 mg PO Q8H [facility] Last Admin: 07/17/16 11:04 Dose: Not Given Diphenhydramine HCl (Benadryl) 25 mg PO Q8H PRN PRN Reason: Itching / Pruritus Last Admin: 07/17/16 08:41 Dose: 25 mg Epoetin Dewey (Procrit) 10,000 unit IV MWF [facility] Famotidine (Pepcid) 20 mg PO DAILY [facility] Last Admin: 07/17/16 09:32 Dose: 20 mg Heparin Sodium (Porcine) (Heparin) 5,000 units SC Q12 [facility] Last Admin: 07/17/16 09:32 Dose: 5,000 units Hydromorphone HCl (Dilaudid) 0.5 mg IVP Q3H PRN PRN Reason: Pain, moderate (4-7) Last Admin: 07/17/16 17:33 Dose: 0.5 mg Insulin Aspart (Novolog) 0 unit SC ACHS [facility] PRN Reason: Protocol Last Admin: 07/17/16 16:30 Dose: Not Given Insulin Glargine (Lantus) 6 unit SC HS [facility] Last Admin: 07/16/16 22:20 Dose: 6 u Labetalol HCl (Normodyne) 300 mg PO Q12 [facility] Minoxidil (Loniten) 10 mg PO Q12H [facility] Last Admin: 07/17/16 08:32 Dose: 10 mg Sevelamer Carbonate (Renvela) 2,400 mg PO TIDCC [facility] Last Admin: 07/17/16 17:32 Dose: 2,400 mg - Labs Labs: 07/17/16 11:24 07/17/16 11:24 PT 12.4 SECONDS (9.7-12.2) H 07/13/16 16:55 INR 1.1 07/13/16 16:55 APTT 33 SECONDS (21-34) 07/13/16 16:55 Attending/Attestation - Attestation I have personally seen and examined this patient.: Yes I have fully participated in the care of the patient.: Yes I have reviewed all pertinent clinical information, including history, physical exam and plan: Yes Notes (Text): 07/17/16 18:12 Patient was seen and examined at bedside with the resident Patient appears comfortable without any acute distress Status post thrombolysis of the AV fistula Continue hemodialysis as per schedule. As per surgery femoral dialysis catheter will be discontinued once AV fistula is functioning adequately Patient's blood pressure remains uncontrolled. We will titrate the medication for optimal control I discussed the plan of care with the resident and I agree with the above history and physical and assessment/plan by the resident
--- NOTE | 2016-07-17 10:42 | CP.PCM.PN ---
Subjective - Date & Time of Evaluation Date of Evaluation: 07/17/16 Time of Evaluation: 10:41 - Subjective Subjective: s/p avf angioplasty yesterday bp high noted pt has femoral hd catheter refusing hd today Objective - Vital Signs/Intake and Output Vital Signs (last 24 hours): Temp Pulse Resp BP Pulse Ox 97.4 F L 72 20 216/72 H 98 07/17/16 08:00 07/17/16 08:00 07/17/16 08:00 07/17/16 08:00 07/17/16 08:00 Intake and Output: 07/17/16 07/17/16 06:59 18:59 Intake Total 540 Balance 540 - Medications Medications: Current Medications Acetaminophen (Tylenol 325mg Tab) 650 mg PO Q6 PRN PRN Reason: Pain, moderate (4-7) Cinacalcet (Sensipar) 90 mg PO DAILY [facility] Last Admin: 07/17/16 09:31 Dose: 90 mg Clonidine HCl (Catapres) 0.3 mg PO Q8H [facility] Diphenhydramine HCl (Benadryl) 25 mg PO Q8H PRN PRN Reason: Itching / Pruritus Last Admin: 07/17/16 08:41 Dose: 25 mg Epoetin Dewey (Procrit) 10,000 unit IV MWF [facility] Famotidine (Pepcid) 20 mg PO DAILY [facility] Last Admin: 07/17/16 09:32 Dose: 20 mg Heparin Sodium (Porcine) (Heparin) 5,000 units SC Q12 [facility] Last Admin: 07/17/16 09:32 Dose: 5,000 units Hydromorphone HCl (Dilaudid) 0.5 mg IVP Q3H PRN PRN Reason: Pain, moderate (4-7) Last Admin: 07/17/16 08:41 Dose: 0.5 mg Insulin Aspart (Novolog Mix 70/30 (70/30 Units/Ml)) 0 units SC ACHS [facility] PRN Reason: Protocol Last Admin: 07/17/16 07:57 Dose: Not Given Insulin Glargine (Lantus) 6 unit SC HS [facility] Last Admin: 07/16/16 22:20 Dose: 6 u Labetalol HCl (Normodyne) 300 mg PO Q12 [facility] Last Admin: 07/17/16 09:31 Dose: Not Given Minoxidil (Loniten) 10 mg PO Q12H [facility] Last Admin: 07/17/16 08:32 Dose: 10 mg Sevelamer Carbonate (Renvela) 2,400 mg PO TIDCC [facility] Last Admin: 07/17/16 08:33 Dose: 2,400 mg - Labs Labs: 07/16/16 09:26 07/16/16 09:26 PT 12.4 SECONDS (9.7-12.2) H 07/13/16 16:55 INR 1.1 07/13/16 16:55 APTT 33 SECONDS (21-34) 07/13/16 16:55 - Constitutional Appears: Non-toxic, No Acute Distress, Chronically Ill - Head Exam Head Exam: NORMAL INSPECTION - Eye Exam Eye Exam: Normal appearance - ENT Exam ENT Exam: Mucous Membranes Moist, Normal Exam - Neck Exam Neck Exam: Normal Inspection - Respiratory Exam Respiratory Exam: Clear to Ausculation Bilateral, NORMAL BREATHING PATTERN - Cardiovascular Exam Cardiovascular Exam: REGULAR RHYTHM, RRR - GI/Abdominal Exam GI & Abdominal Exam: Distended, Soft - Extremities Exam Extremities Exam: Normal Inspection Additional comments: rue avf w/ thrill Assessment and Plan (1) Complication of arteriovenous dialysis fistula Status: Acute (2) Type 2 diabetes mellitus with diabetic nephropathy Status: Acute (3) ESRD on hemodialysis Status: Acute (4) HTN (hypertension) Status: Acute - Assessment and Plan (Free Text) Assessment: hd tomorrow use avf dc femoral catheter if able to use avf increase clonidine dose
[2016-07-17 11:46] LABS: BASO # 0.1 K/uL (0.0-0.2); EOS # 0.4 K/uL (0.0-0.7); LYMPH # 1.5 K/uL (1.0-4.3); MONO # 0.5 K/uL (0.0-0.8); WHITE BLOOD COUNT 4.8 K/uL (4.8-10.8)
--- NOTE | 2016-07-17 11:49 | RAD ---
PROCEDURE: Fluoroscopy up to 1 hr. HISTORY: THROMBOLYSIS COMPARISON: None TECHNIQUE: Standard protocol for this study/examination. FINDINGS: Less than 1 hr fluoroscopic time utilized during performance of the procedure. IMPRESSION: Fluoroscopic assistance provided for fistulogram, right arm balloon angioplasty, stenting.
[2016-07-17 11:53] LABS: EOS % 8.8 % (0.0-4.0); HEMATOCRIT 31.2 % (34.0-47.0); LYMPH % 30.8 % (20.0-40.0); MEAN CELL VOLUME 91.6 fL (81.0-99.0); MEAN CORPUSCULAR HEMOGLOBIN 30.3 pg (27.0-31.0); MEAN CORPUSCULAR HGB CONC 33.1 g/dL (33.0-37.0); MEAN PLATELET VOLUME 10.6 fL (7.2-11.7); MONO % 9.6 % (0.0-10.0); RED CELL DISTRIBUTION WIDTH 15.8 % (11.5-14.5)
[2016-07-17] MEDS: (Novolog) Insulin Aspart, Recombinant 100 u/ml 10 ml vial SC SCH ×3 (11:53→21:53)
[2016-07-17 11:56] LABS: POTASSIUM 5.6 mmol/L (3.6-5.2)
[2016-07-17 11:59] LABS: ALB/GLOB RATIO 1.2 (1.0-2.1); BILIRUBIN,TOTAL 0.6 mg/dL (0.2-1.3); CALCIUM 8.7 mg/dl (8.6-10.4); TOTAL PROTEIN 8.2 g/dL (6.3-8.3)
[2016-07-17] MEDS: (Lantus) Insulin Glargine, Recombinant SC SCH (21:50)
[2016-07-18] MEDS: HYDROmorphone 0.5 mg/0.5 ml ISec IVP PRN ×4 (02:29→22:02)
[2016-07-18 07:35] LABS: BASO # 0.1 K/uL (0.0-0.2); BASO % 2.1 % (0.0-2.0); EOS # 0.3 K/uL (0.0-0.7); EOS % 8.7 % (0.0-4.0); HEMATOCRIT 28.4 % (34.0-47.0); LYMPH # 1.3 K/uL (1.0-4.3); LYMPH % 33.5 % (20.0-40.0); MEAN CELL VOLUME 91.3 fL (81.0-99.0); MEAN CORPUSCULAR HEMOGLOBIN 30.5 pg (27.0-31.0); MEAN CORPUSCULAR HGB CONC 33.4 g/dL (33.0-37.0); MEAN PLATELET VOLUME 10.8 fL (7.2-11.7); MONO # 0.4 K/uL (0.0-0.8); MONO % 10.2 % (0.0-10.0); RED CELL DISTRIBUTION WIDTH 15.7 % (11.5-14.5); WHITE BLOOD COUNT 3.9 K/uL (4.8-10.8)
[2016-07-18 07:56] LABS: POTASSIUM 5.1 mmol/L (3.6-5.2)
[2016-07-18 07:58] LABS: ALB/GLOB RATIO 1.3 (1.0-2.1); BILIRUBIN,TOTAL 0.5 mg/dL (0.2-1.3); TOTAL PROTEIN 7.4 g/dL (6.3-8.3)
[2016-07-18] MEDS: (Novolog) Insulin Aspart, Recombinant 100 u/ml 10 ml vial SC SCH ×4 (08:39→21:46)
--- NOTE | 2016-07-18 11:07 | CP.PCM.PN ---
Subjective - Date & Time of Evaluation Date of Evaluation: 07/18/16 Time of Evaluation: 08:50 - Subjective Subjective: Vascular Surgery Pt S&E, NAEO. No complaints at this time. Objective - Vital Signs/Intake and Output Vital Signs (last 24 hours): Temp Pulse Resp BP Pulse Ox 97.5 F L 77 18 135/59 L 96 07/18/16 09:30 07/18/16 09:30 07/18/16 09:30 07/18/16 10:35 07/18/16 08:01 Intake and Output: 07/18/16 07/18/16 06:59 18:59 Intake Total 480 Balance 480 - Medications Medications: Current Medications Acetaminophen (Tylenol 325mg Tab) 650 mg PO Q6 PRN PRN Reason: Pain, moderate (4-7) Cinacalcet (Sensipar) 90 mg PO DAILY [facility] Last Admin: 07/17/16 09:31 Dose: 90 mg Clonidine HCl (Catapres) 0.3 mg PO Q8H [facility] Last Admin: 07/18/16 01:46 Dose: 0.3 mg Diphenhydramine HCl (Benadryl) 25 mg PO Q8H PRN PRN Reason: Itching / Pruritus Last Admin: 07/18/16 06:21 Dose: 25 mg Epoetin Dewey (Procrit) 10,000 unit IV MWF [facility] Famotidine (Pepcid) 20 mg PO DAILY [facility] Last Admin: 07/17/16 09:32 Dose: 20 mg Heparin Sodium (Porcine) (Heparin) 5,000 units SC Q12 [facility] Last Admin: 07/17/16 21:48 Dose: 5,000 units Hydromorphone HCl (Dilaudid) 0.5 mg IVP Q3H PRN PRN Reason: Pain, moderate (4-7) Last Admin: 07/18/16 02:29 Dose: 0.5 mg Insulin Aspart (Novolog) 0 unit SC ACHS [facility] PRN Reason: Protocol Last Admin: 07/18/16 08:39 Dose: Not Given Insulin Glargine (Lantus) 6 unit SC HS [facility] Last Admin: 07/17/16 21:50 Dose: 6 u Labetalol HCl (Normodyne) 300 mg PO Q12 [facility] Last Admin: 07/17/16 22:13 Dose: 300 mg Minoxidil (Loniten) 10 mg PO Q12H [facility] Last Admin: 07/18/16 08:38 Dose: Not Given Sevelamer Carbonate (Renvela) 2,400 mg PO TIDCC [facility] Last Admin: 07/18/16 08:38 Dose: 2,400 mg - Labs Labs: 07/18/16 07:17 07/18/16 07:17 PT 12.4 SECONDS (9.7-12.2) H 07/13/16 16:55 INR 1.1 07/13/16 16:55 APTT 33 SECONDS (21-34) 07/13/16 16:55 - Constitutional Appears: Non-toxic, No Acute Distress - Head Exam Head Exam: ATRAUMATIC, NORMOCEPHALIC - Eye Exam Eye Exam: EOMI. absent: Scleral icterus - Respiratory Exam Respiratory Exam: NORMAL BREATHING PATTERN. absent: Respiratory Distress - Extremities Exam Additional comments: RUE: + thrill, mild TTP - Neurological Exam Neurological Exam: Alert, Awake - Skin Skin Exam: Dry, Warm Assessment and Plan - Assessment and Plan (Free Text) Assessment: 41F with Clotted RUE AVF, S/P thrombolysis, angioplasty, and stenting, POD# 2 Plan: OK to remove HD cath Once out Clear for DC from a surgical standpoint. D/W Dr. Tushar Boo PGY3
[2016-07-18] MEDS ORDERED: Epoetin Alfa 10,000 unit/ml Dialysis IV SCH (12:00)
--- NOTE | 2016-07-18 14:00 | CP.PCM.PN ---
Subjective - Date & Time of Evaluation Date of Evaluation: 07/18/16 Time of Evaluation: 13:20 - Subjective Subjective: tolerated HD via avf, 2.5 kg uf femoral shiley to be removed no chest pain no sob no fever appetite good no abdominal pain no urinary complaints no rash no headache no focal weakness Objective - Vital Signs/Intake and Output Vital Signs (last 24 hours): Temp Pulse Resp BP Pulse Ox 97.8 F 79 18 128/57 L 98 07/18/16 13:05 07/18/16 13:05 07/18/16 13:05 07/18/16 13:05 07/18/16 13:05 Intake and Output: 07/18/16 07/18/16 06:59 18:59 Intake Total 480 Balance 480 - Medications Medications: Current Medications Acetaminophen (Tylenol 325mg Tab) 650 mg PO Q6 PRN PRN Reason: Pain, moderate (4-7) Cinacalcet (Sensipar) 90 mg PO DAILY [facility] Last Admin: 07/17/16 09:31 Dose: 90 mg Clonidine HCl (Catapres) 0.3 mg PO Q8H [facility] Last Admin: 07/18/16 01:46 Dose: 0.3 mg Diphenhydramine HCl (Benadryl) 25 mg PO Q8H PRN PRN Reason: Itching / Pruritus Last Admin: 07/18/16 06:21 Dose: 25 mg Epoetin Dewey (Procrit) 10,000 unit IV MWF [facility] Last Admin: 07/18/16 11:23 Dose: 10,000 unit Famotidine (Pepcid) 20 mg PO DAILY [facility] Last Admin: 07/17/16 09:32 Dose: 20 mg Heparin Sodium (Porcine) (Heparin) 5,000 units SC Q12 [facility] Last Admin: 07/17/16 21:48 Dose: 5,000 units Hydromorphone HCl (Dilaudid) 0.5 mg IVP Q3H PRN PRN Reason: Pain, moderate (4-7) Last Admin: 07/18/16 13:48 Dose: 0.5 mg Insulin Aspart (Novolog) 0 unit SC ACHS [facility] PRN Reason: Protocol Last Admin: 07/18/16 08:39 Dose: Not Given Insulin Glargine (Lantus) 6 unit SC HS [facility] Last Admin: 07/17/16 21:50 Dose: 6 u Labetalol HCl (Normodyne) 300 mg PO Q12 [facility] Last Admin: 07/17/16 22:13 Dose: 300 mg Minoxidil (Loniten) 10 mg PO Q12H [facility] Last Admin: 07/18/16 08:38 Dose: Not Given Sevelamer Carbonate (Renvela) 2,400 mg PO TIDCC [facility] Last Admin: 07/18/16 08:38 Dose: 2,400 mg - Labs Labs: 07/18/16 07:17 07/18/16 07:17 PT 12.4 SECONDS (9.7-12.2) H 07/13/16 16:55 INR 1.1 07/13/16 16:55 APTT 33 SECONDS (21-34) 07/13/16 16:55 - Constitutional Appears: Chronically Ill - Head Exam Head Exam: ATRAUMATIC - Eye Exam Eye Exam: EOMI - ENT Exam ENT Exam: Mucous Membranes Moist - Neck Exam Neck Exam: Full ROM. absent: Lymphadenopathy - Respiratory Exam Respiratory Exam: Clear to Ausculation Bilateral. absent: Accessory Muscle Use - Cardiovascular Exam Cardiovascular Exam: REGULAR RHYTHM. absent: Rubs - GI/Abdominal Exam GI & Abdominal Exam: Soft. absent: Tenderness - Extremities Exam Extremities Exam: absent: Pedal Edema - Neurological Exam Neurological Exam: Alert, Awake Assessment and Plan - Assessment and Plan (Free Text) Assessment: dialysis dependent s/p revision of chika for shiley removal probable d/c today
[2016-07-18] MEDS: Labetalol Hydrochloride 300 mg Tab PO SCH ×2 (14:02→22:02)
--- NOTE | 2016-07-18 15:44 | CP.PCM.DIS ---
Provider - Provider Date of Admission: 07/13/16 15:11 Attending physician: Jacek Knowles DO Primary care physician: [facility] Consults: Nephro- [facility] Vascular surgery-[facility] Time Spent in preparation of Discharge (in minutes): 60 Hospital Course - Lab Results Lab Results: Most Recent Lab Values WBC 3.9 K/uL (4.8-10.8) L 07/18/16 07:17 RBC 3.11 Mil/uL (3.80-5.20) L 07/18/16 07:17 Hgb 9.5 g/dL (11.0-16.0) L 07/18/16 07:17 Hct 28.4 % (34.0-47.0) L 07/18/16 07:17 MCV 91.3 fL (81.0-99.0) 07/18/16 07:17 MCH 30.5 pg (27.0-31.0) 07/18/16 07:17 MCHC 33.4 g/dL (33.0-37.0) 07/18/16 07:17 RDW 15.7 % (11.5-14.5) H 07/18/16 07:17 Plt Count 106 K/uL (130-400) L D 07/18/16 07:17 MPV 10.8 fL (7.2-11.7) 07/18/16 07:17 Neut % (Auto) 45.5 % (50.0-75.0) L 07/18/16 07:17 Lymph % (Auto) 33.5 % (20.0-40.0) 07/18/16 07:17 Victoria % (Auto) 10.2 % (0.0-10.0) H 07/18/16 07:17 Eos % (Auto) 8.7 % (0.0-4.0) H 07/18/16 07:17 Baso % (Auto) 2.1 % (0.0-2.0) H 07/18/16 07:17 Neut # 1.8 K/uL (1.8-7.0) 07/18/16 07:17 Lymph # 1.3 K/uL (1.0-4.3) 07/18/16 07:17 Victoria # 0.4 K/uL (0.0-0.8) 07/18/16 07:17 Eos # 0.3 K/uL (0.0-0.7) 07/18/16 07:17 Baso # 0.1 K/uL (0.0-0.2) 07/18/16 07:17 Differential Comment 07/16/16 09:26 PT 12.4 SECONDS (9.7-12.2) H 07/13/16 16:55 INR 1.1 07/13/16 16:55 APTT 33 SECONDS (21-34) 07/13/16 16:55 Sodium 133 mmol/L (132-148) 07/18/16 07:17 Potassium 5.1 mmol/L (3.6-5.2) 07/18/16 07:17 Chloride 89 mmol/L (98-107) L 07/18/16 07:17 Carbon Dioxide 22 mmol/L (22-30) 07/18/16 07:17 Anion Gap 27 (10-20) H 07/18/16 07:17 BUN 67 mg/dL (7-17) H 07/18/16 07:17 Creatinine 7.7 MG/DL (0.7-1.2) H* D 07/18/16 07:17 Est GFR ( Amer) 7 07/18/16 07:17 Est GFR (Non-Af Amer) 6 07/18/16 07:17 POC Glucose (mg/dL) 182 mg/dL (65-110) H 07/18/16 11:36 Random Glucose 149 mg/dL (65-105) H 07/18/16 07:17 Calcium 8.0 mg/dl (8.6-10.4) L 07/18/16 07:17 Phosphorus 7.8 mg/dL (2.5-4.5) H 07/15/16 12:29 Total Bilirubin 0.5 mg/dL (0.2-1.3) 07/18/16 07:17 AST 30 U/L (14-36) 07/18/16 07:17 ALT 9 U/L (9-52) D 07/18/16 07:17 Alkaline Phosphatase 124 U/L (38-126) 07/18/16 07:17 Total Protein 7.4 g/dL (6.3-8.3) 07/18/16 07:17 Albumin 4.1 g/dL (3.5-5.0) 07/18/16 07:17 Globulin 3.2 gm/dL (2.2-3.9) 07/18/16 07:17 Albumin/Globulin Ratio 1.3 (1.0-2.1) 07/18/16 07:17 Beta HCG, Quant < 2.39 mIU/ML 07/16/16 11:13 Hep Bs Antigen Negative (NEGATIVE) 07/14/16 20:26 Blood Type A POSITIVE 07/13/16 16:55 Antibody Screen Negative 07/13/16 16:55 - Hospital Course Hospital Course: 41 F w/PMH sig for HTN, DM, ESRD on HD admitted due to inability to access vasculature at dialysis. Pt attends dialysis MWF- today she was attending when the dialysis center could not access her RUE AVF due to clot- patient was sent to ED for evaluation. Patient was unable to receive dialysis today. Admits to peripheral neuropathy/burning pain in hands/feet, B/L hand numbness, oliguria, occasional constipation, occasional abdominal cramps with movement of torso, fatigue, RILEY, R foot drop, and occasional congestion at night. Denies N/V/F/C , SOB, CP, abdominal pain, changes in vision, diarrhea, dysuria, hematuria, hematochezia, cough, sore throat. Pt admitted to hospital, urgent Right femoral HD catheter placed for dialysis as per surgery. Nephro saw/evaluated pt with order for dialysis. Pt scheduled for AVF thrombolysis, sent to OR On hospital day 3 with resulting Thrombolysis, Balloon angioplasty, and stenting. Pt received HD on hospital day 4 with access via AVF. Right femoral catheter removed after dialysis. Pt with recurrent HTN during hospitalization, pt reports that she has BP in 150's/80-90's at home with 3 HTN BP meds taken all at once BID- tried to replicate home dosing schedule with poor compliance. DM management via long acting insulin + insulin sliding scale with good blood sugar results. Pt stable and ready for discharge as per Dr. Dickinson with strict instructions to follow up with [facility] next week. Diagnoses: ESRD on HD, AVF thrombosis, s/p AVF thrombolysis, balloon angioplasty and stenting, HTN urgency, HTN, peripheral neuropathy, DM - Date & Time of H&P Date of H&P: 07/13/16 Time of H&P: 15:44 Discharge Exam - Head Exam Head Exam: ATRAUMATIC, NORMAL INSPECTION, NORMOCEPHALIC - Eye Exam Eye Exam: EOMI, Normal appearance, PERRL Pupil Exam: NORMAL ACCOMODATION, PERRL - ENT Exam ENT Exam: Mucous Membranes Moist, Normal Exam - Neck Exam Neck exam: Full Rom, Normal Inspection - Respiratory Exam Respiratory Exam: Clear to PA & Lateral, NORMAL BREATHING PATTERN, UNREMARKABLE. absent: Rales, Rhonchi, Wheezes, Respiratory Distress, Stridor - Cardiovascular Exam Cardiovascular Exam: REGULAR RHYTHM, +S1, +S2 - GI/Abdominal Exam GI & Abdominal Exam: Normal Bowel Sounds, Soft, Unremarkable. absent: Tenderness - Extremities Exam Extremities exam: full ROM Additional comments: RUE with palpable thrill over antecubital fossa, bruit on auscultation, slight tenderness over surgical site, extremity slightly swollen - Back Exam Back exam: FULL ROM, NORMAL INSPECTION - Neurological Exam Neurological exam: Alert, CN II-XII Intact, Oriented x3 - Psychiatric Exam Psychiatric exam: Normal Affect, Normal Mood - Skin Skin Exam: Dry, Intact, Normal Color, Warm Discharge Plan - Follow Up Plan Condition: STABLE Disposition: HOME/ ROUTINE Additional Instructions: Patient stable and ready for discharge as per Dr. Dickinson. Please follow up with the [facility] clinic within 1 week after hospitalization. Please continue dialysis as scheduled on Mondays, Wednesdays and Fridays. If you have a recurrence of symptoms, please return to hospital.
[2016-07-18 16:09] VITALS: RESP 20
--- NOTE | 2016-07-18 19:27 | CP.PCM.PN ---
<Monika Monroy - Last Filed: 07/18/16 19:26> Subjective - Date & Time of Evaluation Date of Evaluation: 07/18/16 Time of Evaluation: 10:30 - Subjective Subjective: Internal medicine progress note for Dr. Marco Antonio Monroy, PGY-1 Pt S & E at bedside. Pt continues to complain of pruritis, did get a little sleep, notes that her BP has been running high- is not getting HTN medications as specified. Reports continued R groin pain at site of HD catheter insertion. Denies N/V/F/C, SOB, CP. Objective - Vital Signs/Intake and Output Vital Signs (last 24 hours): Temp Pulse Resp BP Pulse Ox 98.2 F 78 20 196/47 H 100 07/18/16 17:27 07/18/16 17:27 07/18/16 17:27 07/18/16 17:27 07/18/16 17:27 - Medications Medications: Current Medications Acetaminophen (Tylenol 325mg Tab) 650 mg PO Q6 PRN PRN Reason: Pain, moderate (4-7) Cinacalcet (Sensipar) 90 mg PO DAILY [facility] Last Admin: 07/18/16 14:01 Dose: 90 mg Clonidine HCl (Catapres) 0.3 mg PO Q8H [facility] Last Admin: 07/18/16 17:48 Dose: 0.3 mg Diphenhydramine HCl (Benadryl) 25 mg PO Q8H PRN PRN Reason: Itching / Pruritus Last Admin: 07/18/16 06:21 Dose: 25 mg Epoetin Dewey (Procrit) 10,000 unit IV MWF [facility] Last Admin: 07/18/16 11:23 Dose: 10,000 unit Famotidine (Pepcid) 20 mg PO DAILY [facility] Last Admin: 07/18/16 14:02 Dose: 20 mg Heparin Sodium (Porcine) (Heparin) 5,000 units SC Q12 [facility] Last Admin: 07/18/16 14:07 Dose: Not Given Hydromorphone HCl (Dilaudid) 0.5 mg IVP Q3H PRN PRN Reason: Pain, moderate (4-7) Last Admin: 07/18/16 17:49 Dose: 0.5 mg Insulin Aspart (Novolog) 0 unit SC ACHS [facility] PRN Reason: Protocol Last Admin: 07/18/16 16:30 Dose: 2 unit Insulin Glargine (Lantus) 6 unit SC HS [facility] Last Admin: 07/17/16 21:50 Dose: 6 u Labetalol HCl (Normodyne) 300 mg PO Q12 [facility] Last Admin: 07/18/16 14:02 Dose: 300 mg Minoxidil (Loniten) 10 mg PO Q12H [facility] Last Admin: 07/18/16 15:34 Dose: 10 mg Sevelamer Carbonate (Renvela) 2,400 mg PO TIDCC [facility] Last Admin: 07/18/16 17:00 Dose: 2,400 mg - Labs Labs: 07/18/16 07:17 07/18/16 07:17 PT 12.4 SECONDS (9.7-12.2) H 07/13/16 16:55 INR 1.1 07/13/16 16:55 APTT 33 SECONDS (21-34) 07/13/16 16:55 - Constitutional Appears: Non-toxic, No Acute Distress - Head Exam Head Exam: ATRAUMATIC, NORMAL INSPECTION, NORMOCEPHALIC - Eye Exam Eye Exam: EOMI, Normal appearance, PERRL Pupil Exam: NORMAL ACCOMODATION, PERRL - ENT Exam ENT Exam: Mucous Membranes Moist, Normal Exam - Neck Exam Neck Exam: Full ROM, Normal Inspection - Respiratory Exam Respiratory Exam: Clear to Ausculation Bilateral, NORMAL BREATHING PATTERN. absent: Rales, Rhonchi, Wheezes, Respiratory Distress - Cardiovascular Exam Cardiovascular Exam: REGULAR RHYTHM, +S1, +S2 - GI/Abdominal Exam GI & Abdominal Exam: Soft, Normal Bowel Sounds. absent: Tenderness - Extremities Exam Extremities Exam: Full ROM, Normal Inspection, Tenderness (over right groin HD catheter insertion site). absent: Pedal Edema Additional comments: RUE w/palpable thrill over antecubital fossa, minimally tender to palpation over surgical sites, audible bruit. - Neurological Exam Neurological Exam: Alert, Awake, CN II-XII Intact, Oriented x3 - Psychiatric Exam Psychiatric exam: Normal Affect, Normal Mood - Skin Skin Exam: Dry, Intact, Normal Color, Warm Assessment and Plan - Assessment and Plan (Free Text) Assessment: ESRD on HD -POD#2 s/p RUE AVF thrombolysis 2/2 AVF thrombosis Anticoagulation held Cont home meds: Lanthanum Carbonate, Renvela, Sensipar Vasc surg recs- POD#2 s/p RUQ AVF thrombolysis- HD today, d/c R fem catheter after HD, ok to d/c home afterwards Cont Benadryl 25mg Q8H PRN itching DM ISS Cont home med: Lantus Accuchecks HTN BP 211/81- continues to be high Pt did not receive medications until after HD Cont home meds: Minoxidil, Clonidine, Labetalol - to be given all at same time in AM and PM like home dosing regimen Clonidine increased to Q8H from BID Minoxidil 10mg BID Scheduled HTN medications to be administered on same schedule as home, per pt request Monitor GI/DVT ppx Pepcid Heparin SCDs Ambulate Dispo Con current mgmt Try to replicate home HTN med dosing regimen Monitor BP Will D/c when BP WNL Diabetic/renal diet Ambulate DW attending <Simeon Dickinson - Last Filed: 07/19/16 09:07> Objective - Vital Signs/Intake and Output Vital Signs (last 24 hours): Temp Pulse Resp BP Pulse Ox 97.8 F 78 20 127/68 99 07/19/16 07:58 07/19/16 07:58 07/19/16 07:58 07/19/16 07:58 07/19/16 07:58 Intake and Output: 07/19/16 07/19/16 06:59 18:59 Intake Total 540 Balance 540 - Medications Medications: Current Medications Acetaminophen (Tylenol 325mg Tab) 650 mg PO Q6 PRN PRN Reason: Pain, moderate (4-7) Cinacalcet (Sensipar) 90 mg PO DAILY [facility] Last Admin: 07/18/16 14:01 Dose: 90 mg Clonidine HCl (Catapres) 0.3 mg PO Q8H [facility] Last Admin: 07/19/16 08:23 Dose: 0.3 mg Diphenhydramine HCl (Benadryl) 25 mg PO Q8H PRN PRN Reason: Itching / Pruritus Last Admin: 07/19/16 08:02 Dose: 25 mg Epoetin Dewey (Procrit) 10,000 unit IV MWF [facility] Last Admin: 07/18/16 11:23 Dose: 10,000 unit Famotidine (Pepcid) 20 mg PO DAILY [facility] Last Admin: 07/18/16 14:02 Dose: 20 mg Heparin Sodium (Porcine) (Heparin) 5,000 units SC Q12 [facility] Last Admin: 07/18/16 21:49 Dose: 5,000 units Hydromorphone HCl (Dilaudid) 0.5 mg IVP Q3H PRN PRN Reason: Pain, moderate (4-7) Last Admin: 07/19/16 08:02 Dose: 0.5 mg Insulin Aspart (Novolog) 0 unit SC ACHS [facility] PRN Reason: Protocol Last Admin: 07/19/16 07:49 Dose: Not Given Insulin Glargine (Lantus) 6 unit SC HS [facility] Last Admin: 07/18/16 21:49 Dose: 6 u Labetalol HCl (Normodyne) 300 mg PO Q12H [facility] Last Admin: 07/19/16 08:23 Dose: 300 mg Minoxidil (Loniten) 10 mg PO Q12H [facility] Last Admin: 07/19/16 08:23 Dose: 10 mg Sevelamer Carbonate (Renvela) 2,400 mg PO TIDCC [facility] Last Admin: 07/19/16 08:26 Dose: 2,400 mg - Labs Labs: 07/18/16 07:17 07/18/16 07:17 PT 12.4 SECONDS (9.7-12.2) H 07/13/16 16:55 INR 1.1 07/13/16 16:55 APTT 33 SECONDS (21-34) 07/13/16 16:55 Attending/Attestation - Attestation I have personally seen and examined this patient.: Yes I have fully participated in the care of the patient.: Yes I have reviewed all pertinent clinical information, including history, physical exam and plan: Yes Notes (Text): 07/19/16 09:06 Patient was seen and examined at bedside with the resident Patient is status post hemodialysis today surgery to remove hemodialysis catheter. Patient is clear for discharge her blood pressure remains uncontrolled We will titrate the blood pressure medication and discharge the patient and the blood pressure is better controlled.
[2016-07-18] MEDS: (Lantus) Insulin Glargine, Recombinant SC SCH (21:49)
[2016-07-19] MEDS: HYDROmorphone 0.5 mg/0.5 ml ISec IVP PRN ×2 (03:26→08:02)
[2016-07-19] MEDS: (Novolog) Insulin Aspart, Recombinant 100 u/ml 10 ml vial SC SCH ×3 (07:49→16:30)
[2016-07-19 07:59] VITALS: O2SAT 99
[2016-07-19] MEDS ORDERED: Labetalol Hydrochloride 300 mg Tab PO SCH (09:00)
--- NOTE | 2016-07-19 09:16 | CP.PCM.DIS ---
<Monika Monroy - Last Filed: 07/19/16 09:19> Provider - Provider Date of Admission: 07/13/16 15:11 Attending physician: Jacek Knowles DO Primary care physician: Linda Butt Consults: Nephro-[facility] Vascular surgery-[facility] Time Spent in preparation of Discharge (in minutes): 60 Hospital Course - Lab Results Lab Results: Most Recent Lab Values WBC 3.9 K/uL (4.8-10.8) L 07/18/16 07:17 RBC 3.11 Mil/uL (3.80-5.20) L 07/18/16 07:17 Hgb 9.5 g/dL (11.0-16.0) L 07/18/16 07:17 Hct 28.4 % (34.0-47.0) L 07/18/16 07:17 MCV 91.3 fL (81.0-99.0) 07/18/16 07:17 MCH 30.5 pg (27.0-31.0) 07/18/16 07:17 MCHC 33.4 g/dL (33.0-37.0) 07/18/16 07:17 RDW 15.7 % (11.5-14.5) H 07/18/16 07:17 Plt Count 106 K/uL (130-400) L D 07/18/16 07:17 MPV 10.8 fL (7.2-11.7) 07/18/16 07:17 Neut % (Auto) 45.5 % (50.0-75.0) L 07/18/16 07:17 Lymph % (Auto) 33.5 % (20.0-40.0) 07/18/16 07:17 Talbot % (Auto) 10.2 % (0.0-10.0) H 07/18/16 07:17 Eos % (Auto) 8.7 % (0.0-4.0) H 07/18/16 07:17 Baso % (Auto) 2.1 % (0.0-2.0) H 07/18/16 07:17 Neut # 1.8 K/uL (1.8-7.0) 07/18/16 07:17 Lymph # 1.3 K/uL (1.0-4.3) 07/18/16 07:17 Talbot # 0.4 K/uL (0.0-0.8) 07/18/16 07:17 Eos # 0.3 K/uL (0.0-0.7) 07/18/16 07:17 Baso # 0.1 K/uL (0.0-0.2) 07/18/16 07:17 Differential Comment 07/16/16 09:26 PT 12.4 SECONDS (9.7-12.2) H 07/13/16 16:55 INR 1.1 07/13/16 16:55 APTT 33 SECONDS (21-34) 07/13/16 16:55 Sodium 133 mmol/L (132-148) 07/18/16 07:17 Potassium 5.1 mmol/L (3.6-5.2) 07/18/16 07:17 Chloride 89 mmol/L (98-107) L 07/18/16 07:17 Carbon Dioxide 22 mmol/L (22-30) 07/18/16 07:17 Anion Gap 27 (10-20) H 07/18/16 07:17 BUN 67 mg/dL (7-17) H 07/18/16 07:17 Creatinine 7.7 MG/DL (0.7-1.2) H* D 07/18/16 07:17 Est GFR ( Amer) 7 07/18/16 07:17 Est GFR (Non-Af Amer) 6 07/18/16 07:17 POC Glucose (mg/dL) 114 mg/dL (65-110) H 07/19/16 07:12 Random Glucose 149 mg/dL (65-105) H 07/18/16 07:17 Calcium 8.0 mg/dl (8.6-10.4) L 07/18/16 07:17 Phosphorus 7.8 mg/dL (2.5-4.5) H 07/15/16 12:29 Total Bilirubin 0.5 mg/dL (0.2-1.3) 07/18/16 07:17 AST 30 U/L (14-36) 07/18/16 07:17 ALT 9 U/L (9-52) D 07/18/16 07:17 Alkaline Phosphatase 124 U/L (38-126) 07/18/16 07:17 Total Protein 7.4 g/dL (6.3-8.3) 07/18/16 07:17 Albumin 4.1 g/dL (3.5-5.0) 07/18/16 07:17 Globulin 3.2 gm/dL (2.2-3.9) 07/18/16 07:17 Albumin/Globulin Ratio 1.3 (1.0-2.1) 07/18/16 07:17 Beta HCG, Quant < 2.39 mIU/ML 07/16/16 11:13 Hep Bs Antigen Negative (NEGATIVE) 07/14/16 20:26 Blood Type A POSITIVE 07/13/16 16:55 Antibody Screen Negative 07/13/16 16:55 - Hospital Course Hospital Course: 41 F w/PMH sig for HTN, DM, ESRD on HD admitted due to inability to access vasculature at dialysis. Pt attends dialysis MWF- today she was attending when the dialysis center could not access her RUE AVF due to clot- patient was sent to ED for evaluation. Patient was unable to receive dialysis today. Admits to peripheral neuropathy/burning pain in hands/feet, B/L hand numbness, oliguria, occasional constipation, occasional abdominal cramps with movement of torso, fatigue, RILEY, R foot drop, and occasional congestion at night. Denies N/V/F/C , SOB, CP, abdominal pain, changes in vision, diarrhea, dysuria, hematuria, hematochezia, cough, sore throat. Pt admitted to hospital due to inability to access HD RUE AVF site during dialysis. Pt was taken to OR with placement of R femoral HD catheter by surgery. Pt given emergent dialysis. On hospital day 3 patient was taken back to OR for AVF thrombolysis, ballon angioplasty and stent placement by vascular surgery. Pt with periods of HTN urgency during hospital stay - attempted to replicate home HTN medication dosing regimen for better HTN control. Hospital Day 5, BP was stable, WNL, pt was stable, ready for discharge as per Dr. Dickinson with instructions to follow up next week with PMD. Diagnoses: ESRD on HD, R upper ext AVF thrombosis s/p thrombolectomy, balloon angioplasty, and stent placement, HTN, HTN urgency- resolved, DM Please see EMR for full details of hospitalization - Date & Time of H&P Date of H&P: 07/13/16 Time of H&P: 15:44 Discharge Exam - Head Exam Head Exam: ATRAUMATIC, NORMAL INSPECTION, NORMOCEPHALIC - Eye Exam Eye Exam: EOMI, Normal appearance, PERRL Pupil Exam: NORMAL ACCOMODATION, PERRL - ENT Exam ENT Exam: Mucous Membranes Moist, Normal Exam, Normal External Ear Exam - Neck Exam Neck exam: Full Rom, Normal Inspection - Respiratory Exam Respiratory Exam: Clear to PA & Lateral, NORMAL BREATHING PATTERN, UNREMARKABLE - Cardiovascular Exam Cardiovascular Exam: REGULAR RHYTHM, +S1, +S2 - GI/Abdominal Exam GI & Abdominal Exam: Normal Bowel Sounds, Unremarkable. absent: Distended - Extremities Exam Extremities exam: full ROM, normal inspection, tenderness (slight tenderness over RUE AVF site/surgical site - no erythema, palpable thrill, audible bruit) - Back Exam Back exam: FULL ROM, NORMAL INSPECTION - Neurological Exam Neurological exam: Alert, CN II-XII Intact, Oriented x3 - Psychiatric Exam Psychiatric exam: Normal Affect, Normal Mood - Skin Skin Exam: Dry, Intact, Normal Color, Warm Discharge Plan - Follow Up Plan Condition: STABLE Disposition: HOME/ ROUTINE Instructions: Diabetic Foot Care (DC), Meal Planning with Diabetes Exchanges ( DC), Thrombolysis (DC) Additional Instructions: Patient stable and ready for discharge as per Dr. Dickinson. Please follow up with the [facility] within 1 week after hospitalization, I have made an appointment for you on July 25 at 1pm- if you need to change it please contact them directly. Please continue dialysis as scheduled on Mondays, Wednesdays and Fridays. If you have any pain, you may take over the counter Tylenol as needed. If you have a recurrence of symptoms, please return to hospital. Referrals: Kathrine Holloway MD [Staff Provider] - <Simeon Dickinson - Last Filed: 07/19/16 16:49> Provider - Provider Date of Admission: 07/13/16 15:11 Attending physician: Jacek Knowles, Hospital Course - Lab Results Lab Results: Most Recent Lab Values WBC 3.9 K/uL (4.8-10.8) L 07/18/16 07:17 RBC 3.11 Mil/uL (3.80-5.20) L 07/18/16 07:17 Hgb 9.5 g/dL (11.0-16.0) L 07/18/16 07:17 Hct 28.4 % (34.0-47.0) L 07/18/16 07:17 MCV 91.3 fL (81.0-99.0) 07/18/16 07:17 MCH 30.5 pg (27.0-31.0) 07/18/16 07: MCHC 33.4 g/dL (33.0-37.0) 07/18/16 07: RDW 15.7 % (11.5-14.5) H 07/18/16 07:17 Plt Count 106 K/uL (130-400) L D 07/18/16 07:17 MPV 10.8 fL (7.2-11.7) 07/18/16 07:17 Neut % (Auto) 45.5 % (50.0-75.0) L 07/18/16 07:17 Lymph % (Auto) 33.5 % (20.0-40.0) 07/18/16 07:17 Talbot % (Auto) 10.2 % (0.0-10.0) H 07/18/16 07:17 Eos % (Auto) 8.7 % (0.0-4.0) H 07/18/16 07:17 Baso % (Auto) 2.1 % (0.0-2.0) H 07/18/16 07:17 Neut # 1.8 K/uL (1.8-7.0) 07/18/16 07:17 Lymph # 1.3 K/uL (1.0-4.3) 07/18/16 07:17 Talbot # 0.4 K/uL (0.0-0.8) 07/18/16 07:17 Eos # 0.3 K/uL (0.0-0.7) 07/18/16 07:17 Baso # 0.1 K/uL (0.0-0.2) 07/18/16 07:17 Differential Comment 07/16/16 09:26 PT 12.4 SECONDS (9.7-12.2) H 07/13/16 16:55 INR 1.1 07/13/16 16:55 APTT 33 SECONDS (21-34) 07/13/16 16:55 Sodium 133 mmol/L (132-148) 07/18/16 07:17 Potassium 5.1 mmol/L (3.6-5.2) 07/18/16 07:17 Chloride 89 mmol/L (98-107) L 07/18/16 07:17 Carbon Dioxide 22 mmol/L (22-30) 07/18/16 07:17 Anion Gap 27 (10-20) H 07/18/16 07:17 BUN 67 mg/dL (7-17) H 07/18/16 07:17 Creatinine 7.7 MG/DL (0.7-1.2) H* D 07/18/16 07:17 Est GFR ( Amer) 7 07/18/16 07:17 Est GFR (Non-Af Amer) 6 07/18/16 07:17 POC Glucose (mg/dL) 191 mg/dL (65-110) H 07/19/16 15:56 Random Glucose 149 mg/dL (65-105) H 07/18/16 07:17 Calcium 8.0 mg/dl (8.6-10.4) L 07/18/16 07:17 Phosphorus 7.8 mg/dL (2.5-4.5) H 07/15/16 12:29 Total Bilirubin 0.5 mg/dL (0.2-1.3) 07/18/16 07:17 AST 30 U/L (14-36) 07/18/16 07:17 ALT 9 U/L (9-52) D 07/18/16 07:17 Alkaline Phosphatase 124 U/L (38-126) 07/18/16 07:17 Total Protein 7.4 g/dL (6.3-8.3) 07/18/16 07:17 Albumin 4.1 g/dL (3.5-5.0) 07/18/16 07:17 Globulin 3.2 gm/dL (2.2-3.9) 07/18/16 07:17 Albumin/Globulin Ratio 1.3 (1.0-2.1) 07/18/16 07:17 Beta HCG, Quant < 2.39 mIU/ML 07/16/16 11:13 Hep Bs Antigen Negative (NEGATIVE) 07/14/16 20:26 Blood Type A POSITIVE 07/13/16 16:55 Antibody Screen Negative 07/13/16 16:55 Attending/Attestation - Attestation I have personally seen and examined this patient.: Yes I have fully participated in the care of the patient.: Yes I have reviewed all pertinent clinical information, including history, physical exam and plan: Yes Notes (Text): 07/19/16 16:46 Patient was seen and examined at bedside with the resident Patient's blood pressure is better controlled AV fistula is working and she's been cleared for discharge both by vascular surgery and by nephrology We will discharge the patient home Patient discharged on Percocet 5 tablets for pain as needed Medication administration history was checked prior to prescribing the pain medication through prescription medication website I agree with the above discharge plan by the resident
--- NOTE | 2016-07-19 09:54 | CP.PCM.PN ---
Subjective - Date & Time of Evaluation Date of Evaluation: 07/19/16 Time of Evaluation: 09:52 - Subjective Subjective: Feels better; s/p dialysis 07/18 s/p revision AV access right arm- blood flows acceptable BP labile- meds adjusted and BP better controlled now No CPs, HAs, n,v, diarrhea, SOB Possible discharge later Objective - Vital Signs/Intake and Output Vital Signs (last 24 hours): Temp Pulse Resp BP Pulse Ox 97.8 F 78 20 127/68 99 07/19/16 07:58 07/19/16 07:58 07/19/16 07:58 07/19/16 07:58 07/19/16 07:58 Intake and Output: 07/19/16 07/19/16 06:59 18:59 Intake Total 540 Balance 540 - Medications Medications: Current Medications Acetaminophen (Tylenol 325mg Tab) 650 mg PO Q6 PRN PRN Reason: Pain, moderate (4-7) Cinacalcet (Sensipar) 90 mg PO DAILY [facility] Last Admin: 07/18/16 14:01 Dose: 90 mg Clonidine HCl (Catapres) 0.3 mg PO Q8H [facility] Last Admin: 07/19/16 08:23 Dose: 0.3 mg Diphenhydramine HCl (Benadryl) 25 mg PO Q8H PRN PRN Reason: Itching / Pruritus Last Admin: 07/19/16 08:02 Dose: 25 mg Epoetin Dewey (Procrit) 10,000 unit IV MWF [facility] Last Admin: 07/18/16 11:23 Dose: 10,000 unit Famotidine (Pepcid) 20 mg PO DAILY [facility] Last Admin: 07/18/16 14:02 Dose: 20 mg Heparin Sodium (Porcine) (Heparin) 5,000 units SC Q12 [facility] Last Admin: 07/18/16 21:49 Dose: 5,000 units Hydromorphone HCl (Dilaudid) 0.5 mg IVP Q3H PRN PRN Reason: Pain, moderate (4-7) Last Admin: 07/19/16 08:02 Dose: 0.5 mg Insulin Aspart (Novolog) 0 unit SC ACHS [facility] PRN Reason: Protocol Last Admin: 07/19/16 07:49 Dose: Not Given Insulin Glargine (Lantus) 6 unit SC HS [facility] Last Admin: 07/18/16 21:49 Dose: 6 u Labetalol HCl (Normodyne) 300 mg PO Q12H [facility] Last Admin: 07/19/16 08:23 Dose: 300 mg Minoxidil (Loniten) 10 mg PO Q12H [facility] Last Admin: 07/19/16 08:23 Dose: 10 mg Sevelamer Carbonate (Renvela) 2,400 mg PO TIDCC [facility] Last Admin: 07/19/16 08:26 Dose: 2,400 mg - Labs Labs: 07/18/16 07:17 07/18/16 07:17 PT 12.4 SECONDS (9.7-12.2) H 07/13/16 16:55 INR 1.1 07/13/16 16:55 APTT 33 SECONDS (21-34) 07/13/16 16:55 - Constitutional Appears: No Acute Distress, Chronically Ill - Head Exam Head Exam: ATRAUMATIC, NORMAL INSPECTION - Eye Exam Eye Exam: EOMI, Normal appearance - Neck Exam Neck Exam: Normal Inspection. absent: Tenderness - Respiratory Exam Respiratory Exam: Clear to Ausculation Bilateral, NORMAL BREATHING PATTERN - Cardiovascular Exam Cardiovascular Exam: REGULAR RHYTHM, +S1 - GI/Abdominal Exam GI & Abdominal Exam: Soft. absent: Tenderness - Extremities Exam Extremities Exam: Normal Inspection. absent: Tenderness - Neurological Exam Neurological Exam: Awake, CN II-XII Intact - Skin Skin Exam: Dry, Warm Assessment and Plan (1) AV fistula occlusion Status: Resolved (2) ESRD on hemodialysis Status: Chronic (3) HTN (hypertension) Status: Chronic (4) Hyperkalemia Status: Resolved (5) Type 2 diabetes mellitus with diabetic nephropathy Status: Acute - Assessment and Plan (Free Text) Plan: Dialysis MWF Adequate UF Same BP meds- monitor- BP When discharged will f/u at outpt dialysis unit
[2016-07-19 16:47] VITALS: BP 185/62; PULSE 77; TEMP 98.3
--- NOTE | 2016-07-21 06:37 | CARD ---
APPROVED REPORT EKG Measurement Heart [id number] <Conclusion> Normal sinus rhythm Cannot rule out Anterior infarct, age undetermined Abnormal ECG
== END 2016-07-19 17:30 | disposition home or self-care (01) | DRG 315 ==
LOC: C.ER 14:11 → C.9E 15:11 → C.3T 16:36
PROVIDERS: ADMIT Hospitalist; ATTEND Hospitalist
PROC: 057B3DZ Dilation of Right Basilic Vein with Intraluminal Device, Percutaneous Approach (ICD-10-PCS; principal; 2016-07-13)
PROC: 05CB3ZZ Extirpation of Matter from Right Basilic Vein, Percutaneous Approach (ICD-10-PCS; 2016-07-13)
PROC: 3E03317 Introduction of Other Thrombolytic into Peripheral Vein, Percutaneous Approach (ICD-10-PCS; 2016-07-13)
PROC: 02HV33Z Insertion of Infusion Device into Superior Vena Cava, Percutaneous Approach (ICD-10-PCS; 2016-07-13)
PROC: 5A1D60Z (ICD-10-PCS; 2016-07-14)
PROC: B549ZZA Ultrasonography of Inferior Vena Cava, Guidance (ICD-10-PCS; 2016-07-14)
DX: T82.868A Thrombosis due to vascular prosthetic devices, implants and grafts, initial encounter (principal); E11.21 Type 2 diabetes mellitus with diabetic nephropathy; N25.81 Secondary hyperparathyroidism of renal origin; N18.6 End stage renal disease; I12.0 Hypertensive chronic kidney disease with stage 5 chronic kidney disease or end stage renal disease; E11.22 Type 2 diabetes mellitus with diabetic chronic kidney disease; E87.5 Hyperkalemia; E11.42 Type 2 diabetes mellitus with diabetic polyneuropathy; Y83.2 Surgical operation with anastomosis, bypass or graft as the cause of abnormal reaction of the patient, or of later complication, without mention of misadventure at the time of the procedure; I16.0 Hypertensive urgency; K59.00 Constipation, unspecified; M21.371 Foot drop, right foot; L29.9 Pruritus, unspecified; Z99.2 Dependence on renal dialysis; Z87.891 Personal history of nicotine dependence; Z87.01 Personal history of pneumonia (recurrent); Z79.4 Long term (current) use of insulin

== ENCOUNTER 2016-08-06 13:00 | Emergency (ER) | payer OTHER ==
[2016-08-06 13:01] VITALS: BMI 21.9
[2016-08-06 13:14] VITALS: TEMP 97.9
[2016-08-06 15:13] LABS: BASO # 0.1 K/uL (0.0-0.2); BASO % 1.1 % (0.0-2.0); EOS # 0.1 K/uL (0.0-0.7); EOS % 1.2 % (0.0-4.0); HEMATOCRIT 31.8 % (34.0-47.0); LYMPH # 1.1 K/uL (1.0-4.3); LYMPH % 13.6 % (20.0-40.0); MEAN CORPUSCULAR HEMOGLOBIN 31.2 pg (27.0-31.0); MEAN CORPUSCULAR HGB CONC 33.4 g/dL (33.0-37.0); MEAN PLATELET VOLUME 10.8 fL (7.2-11.7); MONO # 0.7 K/uL (0.0-0.8); RED CELL DISTRIBUTION WIDTH 15.3 % (11.5-14.5)
--- NOTE | 2016-08-06 15:14 | RAD ---
PROCEDURE: CHEST RADIOGRAPH, 1 VIEW HISTORY: Shortness of breath COMPARISON: None available. FINDINGS: LUNGS: Diffuse patchy consolidative increased markings throughout both lungs which may represent underlying edema and or infiltrate. Bilateral hilar prominence. PLEURA: As above. CARDIOVASCULAR: Normal. OSSEOUS STRUCTURES: No significant abnormalities. VISUALIZED UPPER ABDOMEN: Normal. OTHER FINDINGS: Right axillary stent in place which appears kinked at its midportion. IMPRESSION: Diffuse patchy consolidative increased markings throughout both lungs which may represent underlying edema and or infiltrate. Bilateral hilar prominence.
[2016-08-06 15:15] LABS: MEAN CELL VOLUME 93.4 fL (81.0-99.0)
[2016-08-06 15:38] LABS: CHLORIDE 89 mmol/L (98-107)
[2016-08-06 15:39] LABS: SODIUM 137 mmol/L (132-148)
--- NOTE | 2016-08-06 15:40 | C.PDOC ---
History Of Present Illness Patient is a 41 year old female who presents to the ER with a complaint of not feeling well and having nausea. Patient is scheduled for dialysis Saturday, Saturday, and Saturday. Patient did not go to dialysis today because didn't feel like it. Denies vomiting, diarrhea, or fever. Time Seen by Provider: 08/06/16 14:32 Chief Complaint (Nursing): Weakness/Neurological Deficit History Per: Patient History/Exam Limitations: no limitations Onset/Duration Of Symptoms: Hrs Current Symptoms Are (Timing): Still Present Past Medical History Reviewed: Historical Data, Nursing Documentation, Vital Signs Vital Signs: Last Vital Signs Temp 97.9 F 08/06/16 13:11 Pulse 78 08/06/16 16:16 Resp 20 08/06/16 16:16 BP 167/76 H 08/06/16 16:16 Pulse Ox 99 08/06/16 16:26 - Medical History PMH: Anemia, Depression, Diabetes, Fractures (RT ANKLE), HTN, Pneumonia, End Stage Renal Disease (M-W-F), Chronic Kidney Disease, Seizures - [facility] Procedures DILATION OF R BASILIC VEIN WITH INTRALUM DEV, PERC APPROACH (07/13/16) EXTIRPATION OF MATTER FROM RIGHT BASILIC VEIN, PERC APPROACH (07/13/16) FLUOROSCOPY OF INF VENA CAVA USING L OSM CONTRAST, GUIDANCE (05/29/16) INSERTION OF INFUSION DEV INTO INF VENA CAVA, PERC APPROACH (05/29/16) INSERTION OF INFUSION DEV INTO SUP VENA CAVA, PERC APPROACH (07/13/16) INTRODUCE OTH THROMBOLYTIC IN PERIPH VEIN, PERC (07/13/16) PERFORMANCE OF URINARY FILTRATION, MULTIPLE (07/13/16) REMOVAL OF OTHER DEVICE ON RIGHT INGUINAL REGION (05/29/16) ULTRASONOGRAPHY OF INFERIOR VENA CAVA, GUIDANCE (07/13/16) Family History: States: Unknown Family Hx - Social History Hx Tobacco Use: Yes Hx Alcohol Use: No Hx Substance Use: No - Immunization History Hx Tetanus Toxoid Vaccination: No Hx Influenza Vaccination: Yes Hx Pneumococcal Vaccination: No Review Of Systems Except As Marked, All Systems Reviewed And Found Negative. Constitutional: Negative for: Fever, Chills Gastrointestinal: Positive for: Nausea. Negative for: Vomiting, Diarrhea Physical Exam - Physical Exam Appears: Well, Non-toxic Skin: Normal Color, Warm, Dry Head: Atraumatic, Normacephalic Oral Mucosa: Moist Chest: Symmetrical, No Tenderness Cardiovascular: Rhythm Regular, No Murmur Respiratory: Normal Breath Sounds, No Rales, No Rhonchi, No Wheezing Gastrointestinal/Abdominal: Soft, No Tenderness Extremity: Other (right arm av fistula) Neurological/Psych: Oriented x3, Normal Speech, Normal Cognition ED Course And Treatment - Laboratory Results Result Diagrams: 08/06/16 15:00 08/06/16 15:00 Lab Interpretation: Abnormal (trop neg) O2 Sat by Pulse Oximetry: 99 (Room air) Pulse Ox Interpretation: Normal - Radiology CXR: Interpreted by Me CXR Interpretation: Yes: No Acute Disease, Other (+ mild congestion) Progress Note: Urinalysis and EKG ordered. Catapres PO, pepcid IVP, ultram PO, zofran IVP, and kayexalate PO administered. Reevaluation Time: 16:24 Reassessment Condition: Improved - Physician Consult Information Outcome Of Conversation: d/w Dr. Velazquez- [employer]- ok to leave ED to go to HD awaiting pt for HD @ 1700. Medical Decision Making Medical Decision Making: missed HD this AM due to nausea (not seen in ED) Hyperkalemia treated with Kayexalate- referred to HD as usually M/W/F arranged by Dr. Velazquez for today lethargy and nausea c/w ESRD needing HD today Disposition Doctor Will See Patient In The: Office Counseled Patient/Family Regarding: Studies Performed, Diagnosis - Disposition Referrals: Gerry Velazquez MD [Staff Provider] - Disposition: HOME/ ROUTINE Disposition Time: 16:25 Condition: GOOD Additional Instructions: please go directly to dialysis now- they are expecting you. Instructions: End Stage Kidney Disease (ED) - Clinical Impression Clinical Impression: ESRD (end stage renal disease) on dialysis - Scribe Statement The provider has reviewed the documentation as recorded by the Scribe Capo Calderón All medical record entries made by the Scribe were at my direction and personally dictated by me. I have reviewed the chart and agree that the record accurately reflects my personal performance of the history, physical exam, medical decision making, and the department course for this patient. I have also personally directed, reviewed, and agree with the discharge instructions and disposition.
[2016-08-06 15:41] LABS: BILIRUBIN,TOTAL 0.8 mg/dL (0.2-1.3); CARBON DIOXIDE 27 mmol/L (22-30); GFR AFRICAN-AMERICAN 5
[2016-08-06 15:42] LABS: ALB/GLOB RATIO 1.3 (1.0-2.1); ALKALINE PHOSPHATASE 130 U/L (38-126); ALT/SGPT 60 U/L (9-52); AST/SGOT 102 U/L (14-36); BLOOD UREA NITROGEN 73 mg/dL (7-17); CALCIUM 9.1 mg/dl (8.6-10.4); GLUCOSE,RANDOM 256 mg/dL (65-105); TOTAL PROTEIN 7.9 g/dL (6.3-8.3)
[2016-08-06 15:53] LABS: POTASSIUM 6.7 mmol/L (3.6-5.2)
[2016-08-06] MEDS ORDERED: Sod Polystyrene Sulf 15 gm/60 ml Oral Susp PO ONE (16:10)
[2016-08-06 16:16] VITALS: BP 167/76; PULSE 78; RESP 20
[2016-08-06 16:26] VITALS: O2SAT 99
== END 2016-08-06 16:43 | disposition home or self-care (01) ==
LOC: C.ER 13:00
DX: I12.0 Hypertensive chronic kidney disease with stage 5 chronic kidney disease or end stage renal disease (principal); E11.22 Type 2 diabetes mellitus with diabetic chronic kidney disease; N18.6 End stage renal disease; Z99.2 Dependence on renal dialysis; Z72.0 Tobacco use
CPT/HCPCS: 71010; 80053; 83880; 84484; 85025; 96374; 96375; 99285; J2405

== ENCOUNTER 2016-08-27 11:06 | Emergency (ER) | payer OTHER ==
[2016-08-27 11:06] VITALS: BMI 21.9
[2016-08-27 12:02] LABS: BASO # 0.1 K/uL (0.0-0.2); BASO % 1.1 % (0.0-2.0); EOS # 0.3 K/uL (0.0-0.7); EOS % 2.2 % (0.0-4.0); HEMATOCRIT 36.8 % (34.0-47.0); LYMPH # 1.2 K/uL (1.0-4.3); LYMPH % 8.6 % (20.0-40.0); MEAN CORPUSCULAR HEMOGLOBIN 29.8 pg (27.0-31.0); MEAN CORPUSCULAR HGB CONC 32.7 g/dL (33.0-37.0); MEAN PLATELET VOLUME 9.7 fL (7.2-11.7); MONO # 0.9 K/uL (0.0-0.8); MONO % 6.4 % (0.0-10.0); PLATELET COUNT 247 K/uL (130-400); RED CELL DISTRIBUTION WIDTH 16.1 % (11.5-14.5); WHITE BLOOD COUNT 13.6 K/uL (4.8-10.8)
[2016-08-27 12:15] LABS: BILIRUBIN,TOTAL 1.1 mg/dL (0.2-1.3)
[2016-08-27 12:16] LABS: ALB/GLOB RATIO 1.3 (1.0-2.1); CALCIUM 8.9 mg/dl (8.6-10.4); POTASSIUM 5.9 mmol/L (3.6-5.2); TOTAL PROTEIN 9.1 g/dL (6.3-8.3)
[2016-08-27] MEDS ORDERED: Morphine 4 MG/ML VIAL ONE (12:17)
[2016-08-27 12:35] LABS: EOSINOPHIL 1 % (0-4); NEUTROPHIL 90 % (50-75); TOTAL CELLS COUNTED 100
--- NOTE | 2016-08-27 12:38 | C.PDOC ---
History Of Present Illness 41 y/o female pmhx ESRD on dialysis presents to the ED with complains of headache. Pt was scheduled for dialysis today, but did not go becuase she developed a headache and didn't want to take public transportation to get to dialysis. LMP 2-3 months ago. Denies fever, cough, UR symptoms, chills, SOB, chest pain, vomiting or any other complaints. Chief Complaint (Nursing): Headache History Per: Patient History/Exam Limitations: no limitations Onset/Duration Of Symptoms: Hrs Current Symptoms Are (Timing): Still Present Severity: Moderate Preceeding Symptoms: None Recent travel outside of the [place]: No Past Medical History Reviewed: Historical Data, Nursing Documentation, Vital Signs Vital Signs: Last Vital Signs Temp 97.7 F 08/27/16 14:57 Pulse 83 08/27/16 14:57 Resp 18 08/27/16 14:57 BP 177/78 H 08/27/16 14:57 Pulse Ox 96 08/27/16 14:57 - Medical History PMH: Anemia, Depression, Diabetes, Fractures (RT ANKLE), HTN, Pneumonia, End Stage Renal Disease (M-W-F), Chronic Kidney Disease, Seizures - [facility] Procedures DILATION OF R BASILIC VEIN WITH INTRALUM DEV, PERC APPROACH (07/13/16) EXTIRPATION OF MATTER FROM RIGHT BASILIC VEIN, PERC APPROACH (07/13/16) FLUOROSCOPY OF INF VENA CAVA USING L OSM CONTRAST, GUIDANCE (05/29/16) INSERTION OF INFUSION DEV INTO INF VENA CAVA, PERC APPROACH (05/29/16) INSERTION OF INFUSION DEV INTO SUP VENA CAVA, PERC APPROACH (07/13/16) INTRODUCE OTH THROMBOLYTIC IN PERIPH VEIN, PERC (07/13/16) PERFORMANCE OF URINARY FILTRATION, MULTIPLE (07/13/16) REMOVAL OF OTHER DEVICE ON RIGHT INGUINAL REGION (05/29/16) ULTRASONOGRAPHY OF INFERIOR VENA CAVA, GUIDANCE (07/13/16) Family History: States: Unknown Family Hx - Social History Hx Tobacco Use: Yes Hx Alcohol Use: No Hx Substance Use: No - Immunization History Hx Tetanus Toxoid Vaccination: No Hx Influenza Vaccination: Yes Hx Pneumococcal Vaccination: No Review Of Systems Except As Marked, All Systems Reviewed And Found Negative. Constitutional: Negative for: Fever, Chills Cardiovascular: Negative for: Chest Pain Respiratory: Negative for: Shortness of Breath Gastrointestinal: Negative for: Vomiting Neurological: Positive for: Headache Physical Exam - Physical Exam Appears: Non-toxic, No Acute Distress Skin: Warm, Dry, No Rash Head: Atraumatic, Normacephalic Eye(s): bilateral: PERRL, EOMI Neck: Normal, Normal ROM, Supple Chest: Symmetrical Cardiovascular: Rhythm Regular, No Murmur Respiratory: Normal Breath Sounds, No Rales, No Rhonchi, No Wheezing Gastrointestinal/Abdominal: Soft Extremity: Normal ROM Extremity: Bilateral: Atraumatic Neurological/Psych: Oriented x3, Normal Speech, Normal Cognition, Normal Motor, Normal Sensation ED Course And Treatment - Laboratory Results Result Diagrams: 08/27/16 11:58 08/27/16 11:58 O2 Sat by Pulse Oximetry: 97 (room air) Pulse Ox Interpretation: Normal - Radiology CXR: Interpreted by La CXR Interpretation: Yes: No Acute Disease - CT Scan/US Head CT Other Rad Studies (CT/US): Read By Radiologist, Radiology Report Reviewed CT/US Interpretation: Accession No. : [id number]. Patient Name / ID : JACINTO HESTER / [id number]. Exam Date : 08/27/2016 13:28:45 ( Approved ). Study Comment : Sex / Age : F / 41Y. Creator : Karl Candelaria. Dictator : Karl Candelaria. Senior Speech Pathologist : Obgyn Hospitalist Physician : Karl Candelaria. Approver2 : Report Date : 08/27/2016 13:41:05. My Comment : . PROCEDURE: CT HEAD WITHOUT CONTRAST. HISTORY: severe headache, ESRD on HD, elevated WBCs. COMPARISON: None available. TECHNIQUE: Axial computed tomography images were obtained through the head/brain without intravenous contrast. Radiation dose: Total exam DLP = 1143.11 mGy-cm. This CT exam was performed using one or more of the following dose reduction techniques: Automated exposure control, adjustment of the mA and/or kV according to patient size, and/or use of iterative reconstruction technique. FINDINGS: HEMORRHAGE: No intracranial hemorrhage. BRAIN: No mass effect or edema. Mild atrophy is noted. VENTRICLES: Unremarkable. No hydrocephalus. CALVARIUM: Unremarkable. PARANASAL SINUSES: Mild sinuses mucosal thickening is noted. MASTOID AIR CELLS : Unremarkable as visualized. No inflammatory changes. OTHER FINDINGS: None. IMPRESSION: No evidence of acute intracranial hemorrhage intracranial collection mass effect or midline shift. Mild atrophy for the patient's age. Mild sinuses mucosal thickening. Progress Note: Spoke with who requested patient to be d/c home and go straight to the HD center now. Medical Decision Making Medical Decision Making: Plan: labs, morphine, reglan, IV fluids Disposition - Disposition Referrals: Gerry Velazquez MD [Staff Provider] - Disposition: HOME/ ROUTINE Disposition Time: 14:39 Condition: IMPROVED Additional Instructions: Please go to your Dialysis Center now. is waiting for you. Return to ED if feel worse. Instructions: General Headache (ED) - Clinical Impression Clinical Impression: Headache - PA / THIRD HAND / Resident Statement MD/DO has reviewed & agrees with the documentation as recorded. - Scribe Statement The provider has reviewed the documentation as recorded by the Kentrell Martin All medical record entries made by the Kentrell were at my direction and personally dictated by me. I have reviewed the chart and agree that the record accurately reflects my personal performance of the history, physical exam, medical decision making, and the department course for this patient. I have also personally directed, reviewed, and agree with the discharge instructions and disposition.
--- NOTE | 2016-08-27 13:42 | CT ---
PROCEDURE: CT HEAD WITHOUT CONTRAST. HISTORY: severe headache, ESRD on HD, elevated WBCs COMPARISON: None available. TECHNIQUE: Axial computed tomography images were obtained through the head/brain without intravenous contrast. Radiation dose: Total exam DLP = 1143.11 mGy-cm. This CT exam was performed using one or more of the following dose reduction techniques: Automated exposure control, adjustment of the mA and/or kV according to patient size, and/or use of iterative reconstruction technique. FINDINGS: HEMORRHAGE: No intracranial hemorrhage. BRAIN: No mass effect or edema. Mild atrophy is noted. VENTRICLES: Unremarkable. No hydrocephalus. CALVARIUM: Unremarkable. PARANASAL SINUSES: Mild sinuses mucosal thickening is noted. MASTOID AIR CELLS: Unremarkable as visualized. No inflammatory changes. OTHER FINDINGS: None. IMPRESSION: No evidence of acute intracranial hemorrhage intracranial collection mass effect or midline shift Mild atrophy for the patient's age. Mild sinuses mucosal thickening.
--- NOTE | 2016-08-27 13:58 | RAD ---
HISTORY: headache, levated WBCs, ESRD on HD COMPARISON: No prior. TECHNIQUE: Chest PA and lateral FINDINGS: LUNGS: Diffuse increased interstitial lung markings suggestive for interstitial edema and or infiltrate. Patchy consolidative changes at the left costophrenic angle with trace left pleural effusion. PLEURA: As above. CARDIOVASCULAR: Cardiomegaly. Right axillary stent in place. Surgical clips in the left axilla. OSSEOUS STRUCTURES: Degenerative changes in the spine and shoulders. VISUALIZED UPPER ABDOMEN: Normal. OTHER FINDINGS: None. IMPRESSION: Diffuse increased interstitial lung markings suggestive for interstitial edema and or infiltrate. Patchy consolidative changes at the left costophrenic angle with trace left pleural effusion.
[2016-08-27 14:58] VITALS: BP 177/78; PULSE 83; RESP 18; TEMP 97.7
[2016-08-27 16:57] VITALS: O2SAT 97
== END 2016-08-27 15:32 | disposition home or self-care (01) ==
LOC: C.ER 11:06
DX: R51 Headache (principal); I12.0 Hypertensive chronic kidney disease with stage 5 chronic kidney disease or end stage renal disease; N18.6 End stage renal disease; Z99.2 Dependence on renal dialysis; Z72.0 Tobacco use
CPT/HCPCS: 70450; 71020; 80053; 82948; 84702; 85025; 96374; 96375; 99285; J2270; J2765

== ENCOUNTER 2016-09-09 23:10 | Emergency (ER) | payer OTHER ==
[2016-09-09 23:11] VITALS: BMI 21.9
--- NOTE | 2016-09-09 23:42 | C.PDOC ---
History Of Present Illness 41F c/o productive cough and congestion for the last several days. denies fever or sob. she c/o of "body pain" and "leg spasms" which are chronic and for which she says she takes percocet and hydromorphine but she has run out of these medications. Time Seen by Provider: 09/09/16 23:23 Chief Complaint (Nursing): Cough, Cold, Congestion Past Medical History Vital Signs: Last Vital Signs Temp 97.5 F L 09/10/16 01:53 Pulse 75 09/10/16 01:53 Resp 16 09/10/16 01:53 BP 119/57 L 09/10/16 01:53 Pulse Ox 95 09/10/16 01:53 - Medical History PMH: Anemia, Depression, Diabetes, Fractures (RT ANKLE), HTN, Pneumonia, End Stage Renal Disease (M-W-F), Chronic Kidney Disease, Seizures - [facility] Procedures DILATION OF R BASILIC VEIN WITH INTRALUM DEV, PERC APPROACH (07/13/16) EXTIRPATION OF MATTER FROM RIGHT BASILIC VEIN, PERC APPROACH (07/13/16) FLUOROSCOPY OF INF VENA CAVA USING L OSM CONTRAST, GUIDANCE (05/29/16) INSERTION OF INFUSION DEV INTO INF VENA CAVA, PERC APPROACH (05/29/16) INSERTION OF INFUSION DEV INTO SUP VENA CAVA, PERC APPROACH (07/13/16) INTRODUCE OTH THROMBOLYTIC IN PERIPH VEIN, PERC (07/13/16) PERFORMANCE OF URINARY FILTRATION, MULTIPLE (07/13/16) REMOVAL OF OTHER DEVICE ON RIGHT INGUINAL REGION (05/29/16) ULTRASONOGRAPHY OF INFERIOR VENA CAVA, GUIDANCE (07/13/16) Family History: States: Other Other Family History: nc - Social History Hx Tobacco Use: Yes Hx Alcohol Use: No Hx Substance Use: No - Immunization History Hx Tetanus Toxoid Vaccination: No Hx Influenza Vaccination: Yes Hx Pneumococcal Vaccination: No Review Of Systems Constitutional: Negative for: Fever, Chills Cardiovascular: Negative for: Chest Pain Respiratory: Positive for: Cough, Sputum. Negative for: Shortness of Breath, Hemoptysis Gastrointestinal: Negative for: Vomiting, Abdominal Pain Neurological: Negative for: Weakness, Numbness Physical Exam - Physical Exam Appears: Non-toxic, No Acute Distress Skin: Warm, Dry Head: Atraumatic Eye(s): bilateral: PERRL Oral Mucosa: Moist Neck: Normal ROM Cardiovascular: Rhythm Regular Respiratory: No Decreased Breath Sounds, No Accessory Muscle Use, No Rales, No Rhonchi, No Stridor, No Wheezing Gastrointestinal/Abdominal: Soft, No Tenderness Extremity: No Swelling Neurological/Psych: Oriented x3, Other (no focal deficits) ED Course And Treatment - Laboratory Results Result Diagrams: 09/09/16 23:48 09/09/16 23:48 O2 Sat by Pulse Oximetry: 97 Medical Decision Making Medical Decision Making: cxr- increased interstitial markings, appears similar to prior 08/27/16 the pt rested quietly without distress during her ED course. spo2 97% on RA. pt ambulatory without difficulty. I disc w her plan for rx, follow up, and rtr. Disposition - Disposition Disposition: HOME/ ROUTINE Disposition Time: 01:41 Condition: STABLE Additional Instructions: Please follow up with your doctor. Return to the ER for any worsening symptoms or for any other concerns. Prescriptions: Levofloxacin [Levaquin] 750 mg PO DAILY #5 tablet Instructions: Acute Bronchitis (ED) Forms: General Discharge Instructions - Clinical Impression Clinical Impression: Bronchitis
[2016-09-09 23:51] LABS: BASO # 0.1 K/uL (0.0-0.2); BASO % 1.1 % (0.0-2.0); EOS # 0.3 K/uL (0.0-0.7); EOS % 2.8 % (0.0-4.0); HEMATOCRIT 35.5 % (34.0-47.0); LYMPH # 1.3 K/uL (1.0-4.3); LYMPH % 13.5 % (20.0-40.0); MEAN CELL VOLUME 91.9 fL (81.0-99.0); MEAN CORPUSCULAR HEMOGLOBIN 30.1 pg (27.0-31.0); MEAN CORPUSCULAR HGB CONC 32.7 g/dL (33.0-37.0); MEAN PLATELET VOLUME 9.3 fL (7.2-11.7); MONO % 9.8 % (0.0-10.0); WHITE BLOOD COUNT 9.7 K/uL (4.8-10.8)
[2016-09-10 00:02] LABS: ALB/GLOB RATIO 1.2 (1.0-2.1); BILIRUBIN,TOTAL 0.8 mg/dL (0.2-1.3); CALCIUM 10.9 mg/dl (8.6-10.4); TOTAL PROTEIN 8.1 g/dL (6.3-8.3)
[2016-09-10] MEDS ORDERED: Oxycodone/Acetaminophen 5/325 mg Tab PO STA (00:24)
[2016-09-10] MEDS ORDERED: Moxifloxacin IV 400mg/250ml NS 400 MG/250 ML BAG IVPB ONE ×2 (00:25→00:48)
[2016-09-10] MEDS ORDERED: Oxycodone/Acetaminophen 5/325 mg Tab ONE (00:49)
[2016-09-10 01:54] VITALS: BP 119/57; PULSE 75; RESP 16; TEMP 97.5
--- NOTE | 2016-09-10 09:14 | RAD ---
HISTORY: cough COMPARISON: 08/27/2016 TECHNIQUE: Chest PA and lateral FINDINGS: LUNGS: Patchy bibasilar airspace opacities. Diffuse increased interstitial lung markings. Bilateral hilar prominence. Bibasilar breast and nipple shadows. Blunted left costophrenic angle. Biapical pleural thickening. PLEURA: As above. CARDIOVASCULAR: Cardiomegaly. Right axillary stent. Surgical clips in the left axilla. OSSEOUS STRUCTURES: No significant abnormalities. VISUALIZED UPPER ABDOMEN: Normal. OTHER FINDINGS: None. IMPRESSION: Patchy bibasilar airspace opacities. Diffuse increased interstitial lung markings. Bilateral hilar prominence. Bibasilar breast and nipple shadows. Blunted left costophrenic angle. Biapical pleural thickening.
[2016-09-12 08:04] VITALS: O2SAT 97
== END 2016-09-10 02:46 | disposition home or self-care (01) ==
LOC: C.ER 23:10
DX: J40 Bronchitis, not specified as acute or chronic (principal); Z72.0 Tobacco use
CPT/HCPCS: 71020; 80053; 85025; 96365; 96366; 96374; 99284; J1885; J2280

== ENCOUNTER 2016-10-22 21:57 | Inpatient (IN) | payer OTHER ==
[2016-10-22 21:58] VITALS: BMI 21.9
--- NOTE | 2016-10-22 22:41 | C.PDOC ---
History Of Present Illness Patient presents to ED c/o worsening intermittent depression. She states she has multiple medical problems and problems with family at home, and she feels hopeless and sometimes thinks about dying. She is also c/o B/L eye irritation and burning sensation, admits she has been crying extensively over the past several days. Patient has h/o ESRD on HD, HTN, DM. She has also had Lasik eye surgery, states she saw her ophthamologist several months ago and was told everything looked fine. Time Seen by Provider: 10/22/16 22:13 Chief Complaint (Nursing): Eye Problem History Per: Patient History/Exam Limitations: no limitations Onset/Duration Of Symptoms: Persistent Current Symptoms Are (Timing): Still Present Severity: Moderate Past Medical History Reviewed: Historical Data, Nursing Documentation, Vital Signs Vital Signs: Last Vital Signs Temp 97.9 F 10/28/16 07:59 Pulse 67 10/28/16 07:59 Resp 16 10/28/16 07:59 BP 106/71 10/28/16 07:59 Pulse Ox 93 L 10/26/16 12:45 - Medical History PMH: Anemia, Depression, Diabetes, Fractures (RT ANKLE), HTN, Pneumonia, End Stage Renal Disease (M-W-F), Chronic Kidney Disease, Seizures - [facility] Procedures DILATION OF R BASILIC VEIN WITH INTRALUM DEV, PERC APPROACH (07/13/16) EXTIRPATION OF MATTER FROM RIGHT BASILIC VEIN, PERC APPROACH (07/13/16) FLUOROSCOPY OF INF VENA CAVA USING L OSM CONTRAST, GUIDANCE (05/29/16) INSERTION OF INFUSION DEV INTO INF VENA CAVA, PERC APPROACH (05/29/16) INSERTION OF INFUSION DEV INTO SUP VENA CAVA, PERC APPROACH (07/13/16) INTRODUCE OTH THROMBOLYTIC IN PERIPH VEIN, PERC (07/13/16) PERFORMANCE OF URINARY FILTRATION, MULTIPLE (07/13/16) REMOVAL OF OTHER DEVICE ON RIGHT INGUINAL REGION (05/29/16) ULTRASONOGRAPHY OF INFERIOR VENA CAVA, GUIDANCE (07/13/16) Family History: States: No Known Family Hx - Social History Hx Tobacco Use: Yes Hx Alcohol Use: No Hx Substance Use: No - Immunization History Hx Tetanus Toxoid Vaccination: No Hx Influenza Vaccination: Yes Hx Pneumococcal Vaccination: No Review Of Systems Except As Marked, All Systems Reviewed And Found Negative. Constitutional: Negative for: Fever, Chills ENT: Positive for: Other (eye irritation, redness) Cardiovascular: Negative for: Chest Pain Respiratory: Negative for: Cough, Shortness of Breath Gastrointestinal: Negative for: Nausea, Vomiting, Abdominal Pain, Diarrhea Psych: Positive for: Depression Physical Exam - Physical Exam Appears: Well, Non-toxic, Other (tearful, flat affect) Skin: Other (hisuitism ) Eye(s): bilateral: PERRL, EOMI, Other (conjunctival/scleral injection B/L ) Oral Mucosa: Moist Cardiovascular: Rhythm Regular Respiratory: Normal Breath Sounds, No Rales, No Rhonchi, No Wheezing Gastrointestinal/Abdominal: Normal Exam, Bowel Sounds, Soft, No Tenderness Extremity: Other (left upper ext - AV fistula with palpable thrill) Neurological/Psych: Oriented x3 ED Course And Treatment - Laboratory Results Result Diagrams: 10/26/16 10:02 10/26/16 10:02 O2 Sat by Pulse Oximetry: 98 (ra) Pulse Ox Interpretation: Normal Progress Note: Blood work ordered and reviewed. Patient given Tobradex eye drops in ED. She does not make urine, unable to obtain UA, UDS, Upreg. 11:20pm - Patient medically cleared. Pending crisis. 1:00AM- Patient accepted for psychiatric admission by Dr. Winchester. Consult for nephrology entered (Dr. Velazquez). Recommend tobradex ophthalmic drops 1-2 drops BID x 4 days, and outpatient follow up with patient's optho when discharged. Disposition - Disposition Disposition: HOSPITALIZED Disposition Time: 01:08 Condition: STABLE - Clinical Impression Clinical Impression: Depression Decision To Admit - Pt Status Changed To: Hospital Disposition Of: Inpatient - Admit Certification Admit to Inpatient:: After my assessment, the patient will require hospitalization for at least two midnights. This is because of the severity of symptoms shown, intensity of services needed, and/or the medical risk in this patient being treated as an outpatient. - InPatient: Physician Admission Certification: I certify that this patient requires 2 or more midnights of care for the following reason:: see notes - . Bed Request Type: Psychiatry Admitting Physician: Juliana Winchester Patient Diagnosis: Depression
[2016-10-22] MEDS ORDERED: Tobramycin/Dexamethasone (Tobradex) Opth Sol (2.5 ml) OD STA (22:42)
[2016-10-22 23:06] LABS: BASO # 0.1 K/uL (0.0-0.2); BASO % 1.2 % (0.0-2.0); EOS # 0.2 K/uL (0.0-0.7); EOS % 3.8 % (0.0-4.0); HEMOGLOBIN 12.6 g/dL (11.0-16.0); LYMPH # 1.8 K/uL (1.0-4.3); MEAN CELL VOLUME 92.1 fL (81.0-99.0); MEAN CORPUSCULAR HEMOGLOBIN 30.4 pg (27.0-31.0); MEAN PLATELET VOLUME 9.6 fL (7.2-11.7); MONO # 0.7 K/uL (0.0-0.8); MONO % 13.7 % (0.0-10.0); NEUT # 2.5 K/uL (1.8-7.0); NEUT % 47.3 % (50.0-75.0); NRBC % 0.1 % (0.0-2.0); RBC 4.16 Mil/uL (3.80-5.20); RED CELL DISTRIBUTION WIDTH 18.5 % (11.5-14.5); WHITE BLOOD COUNT 5.2 K/uL (4.8-10.8)
[2016-10-22 23:14] LABS: ALBUMIN 4.6 g/dL (3.5-5.0)
[2016-10-22 23:16] LABS: GFR AFRICAN-AMERICAN 11; GFR NON-AFRICAN AMERICAN 9
[2016-10-22 23:17] LABS: ALB/GLOB RATIO 1.2 (1.0-2.1); ALT/SGPT 14 U/L (9-52); AST/SGOT 33 U/L (14-36); BLOOD UREA NITROGEN 34 mg/dL (7-17); CALCIUM 9.7 mg/dl (8.6-10.4)
[2016-10-23] MEDS: (Novolog) Insulin Aspart, Recombinant 100 u/ml 10 ml vial SC SCH ×3 (12:17→21:33)
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
[2016-10-23] MEDS ORDERED: Labetalol Hydrochloride 300 mg Tab PO SCH (12:45)
[2016-10-23] MEDS ORDERED: LEVOFLOXACIN 750 MG PO SCH (12:45)
[2016-10-23] MEDS ORDERED: SENSIPAR 90 MG PO SCH (12:45)
[2016-10-23] MEDS ORDERED: (Novolog) Insulin Aspart, Recombinant 100 u/ml 10 ml vial SC SCH (16:30)
[2016-10-23] MEDS: Labetalol Hydrochloride 300 mg Tab PO SCH (17:37)
[2016-10-23] MEDS: (Lantus) Insulin Glargine, Recombinant SC SCH (23:00)
--- NOTE | 2016-10-24 07:50 | CP.PCM.CON ---
History of Present Illness - History of Present Illness History of Present Illness: 41 yo female with ESRD, DM, HTN, depression, admitted for worsening depression. Receives HD M,W,F at [facility]. Last HD on Saturday. Has an AVF. On HD x 10 years. Anuric. HD scheduled for today. Review of Systems - Constitutional Constitutional: absent: Chills - EENT Eyes: absent: Change in Vision, Diplopia - Cardiovascular Cardiovascular: absent: Chest Pain, Pedal Edema - Respiratory Respiratory: absent: Cough, Wheezing - Gastrointestinal Gastrointestinal: absent: Constipation, Cramping - Musculoskeletal Musculoskeletal: absent: Arthralgias, Atrophy - Neurological Neurological: Burning Sensations, Disequilibrium. absent: Abnormal Gait - Psychiatric Psychiatric: Anxiety, Depression - Hematologic/Lymphatic Hematologic: absent: Easy Bleeding, Easy Bruising Past Patient History - Infectious Disease Hx of Infectious Diseases: None - Past Medical History & Family History Past Medical History?: Yes - Past Social History Smoking Status: Never Smoked - CARDIAC Hx Hypertension: Yes Other/Comment: Had a stroke in 2008. - PULMONARY Hx Pneumonia: Yes - NEUROLOGICAL HX Cerebrovascular Accident: Yes (reported a stroke in 2008) Hx Seizures: Yes - HEENT Hx HEENT Problems: Yes Hx Cataracts: Yes (HAD CUATE CATARACT SURGERY) - RENAL Hx Chronic Kidney Disease: Yes Hx Dialysis: Yes (Since 2006) Date of Last Dialysis Treatment: 10/22/16 - ENDOCRINE/METABOLIC Hx Endocrine Disorders: Yes Hx Diabetes Mellitus Type 2: Yes - HEMATOLOGICAL/ONCOLOGICAL Hx Blood Disorders: No Hx Cancer: No Hx Human Immunodeficiency Virus (HIV): No - INTEGUMENTARY Hx Dermatological Problems: No - MUSCULOSKELETAL/RHEUMATOLOGICAL Hx Fractures: Yes (RT ANKLE) - GASTROINTESTINAL Hx Gastrointestinal Disorders: Yes Hx Ulcer: Yes - GENITOURINARY/GYNECOLOGICAL Hx Sexually Transmitted Disorders: No - PSYCHIATRIC Hx Substance Use: No - SURGICAL HISTORY Hx Surgeries: Yes Hx Arteriovenous Shunt: Yes (NON FUNC MITZI, NEW SIDNEY) Hx Cataract Extraction: Yes Hx Eye Surgery: Yes (RETINA RT) - ANESTHESIA Hx Anesthesia: Yes Hx Anesthesia Reactions: No Hx Malignant Hyperthermia: No Meds Allergies/Adverse Reactions: Allergies Allergy/AdvReac Type Severity Reaction Status Date / Time No Known Allergies Allergy Verified 09/09/16 23:22 - Medications Medications: Current Medications Acetaminophen (Tylenol 325mg Tab) 650 mg PO Q6 PRN PRN Reason: Pain, moderate (4-7) Last Admin: 10/23/16 16:31 Dose: 650 mg Cinacalcet (Sensipar) 90 mg PO DAILY [facility] Insulin Aspart (Novolog) 0 unit SC ACHS [facility] PRN Reason: Protocol Last Admin: 10/23/16 21:33 Dose: Not Given Insulin Glargine (Lantus) 6 unit SC HS [facility] Last Admin: 10/23/16 23:00 Dose: 6 unit Labetalol HCl (Normodyne) 300 mg PO BID [facility] Last Admin: 10/23/16 17:37 Dose: 300 mg Minoxidil (Loniten) 10 mg PO Q12 [facility] Last Admin: 10/23/16 21:38 Dose: 10 mg Pantoprazole Sodium (Protonix Ec Tab) 40 mg PO DAILY [facility] Sertraline HCl (Zoloft) 50 mg PO DAILY [facility] Last Admin: 10/23/16 13:05 Dose: 50 mg Sevelamer Carbonate (Renvela) 2,400 mg PO TIDCC [facility] Last Admin: 10/23/16 17:38 Dose: 2,400 mg Sevelamer Carbonate (Renvela) 800 mg PO WM [facility] Trazodone HCl (Desyrel) 50 mg PO HS [facility] Last Admin: 10/23/16 21:38 Dose: 50 mg Physical Exam - Constitutional Appears: No Acute Distress - Head Exam Head Exam: ATRAUMATIC, NORMAL INSPECTION - Eye Exam Eye Exam: EOMI, Periorbital swelling - ENT Exam ENT Exam: Mucous Membranes Moist - Neck Exam Neck exam: Positive for: Full Rom. Negative for: Lymphadenopathy - Respiratory Exam Respiratory Exam: Clear to Auscultation Bilateral, NORMAL BREATHING PATTERN. absent: Accessory Muscle Use - Cardiovascular Exam Cardiovascular Exam: REGULAR RHYTHM. absent: Rubs - GI/Abdominal Exam GI & Abdominal Exam: Normal Bowel Sounds. absent: Tenderness - Extremities Exam Extremities exam: Negative for: pedal edema - Neurological Exam Neurological exam: Alert, Oriented x3 - Psychiatric Exam Psychiatric exam: Anxious Results - Vital Signs Recent Vital Signs: Last Vital Signs Temp 98.7 F 10/23/16 07:55 Pulse 82 10/23/16 15:59 Resp 20 10/23/16 07:55 BP 172/69 H 10/23/16 15:59 Pulse Ox 96 10/23/16 01:36 - Labs Result Diagrams: 10/22/16 23:03 10/22/16 23:03 Labs: Laboratory Results - last 24 hr 10/23/16 10/23/16 10/23/16 12:01 15:52 20:10 POC Glucose (mg/dL) 319 H 135 H 320 H 10/23/16 10/24/16 21:32 00:49 POC Glucose (mg/dL) 262 H 157 H Assessment & Plan - Assessment and Plan (Free Text) Assessment: ESRD DM HTN admitted to 5E frp depression maint HD for today continue outpt medicines Psych recommendations
[2016-10-24] MEDS: (Novolog) Insulin Aspart, Recombinant 100 u/ml 10 ml vial SC SCH ×4 (08:58→21:14)
[2016-10-24] MEDS ORDERED: Home Med 1 UNIT (Esomeprazole Magnesium [Nexium] 40 MG) PO SCH (10:00)
--- NOTE | 2016-10-24 13:58 | PCM.PYCHPN ---
Psychiatric Progress Note - Psychiatric Progress Note Patient seen today, length of contact: 17 min Patient Chief Complaint: "I feel depressed, and drowsy." Problems Identified/Issues Discussed: Pt seen, chart reviewed, and case discussed with staff. Pt states that she could not sleep last night due to high BP, but slept after taking clonidine. She reports that she feels dizzy, and drowsy. Pt describes her mood as depressed. She reports improvement in her feelings of hopelessness or helplessness. however she remained isolated and withdrawn. She denies any auditory or visual hallucinations. She complains of a problem in the corner of her right eye, and states that her hands get numb. Pt underwent dialysis today, is compliant with medications, and reports no side effects. Symptoms are improving but needs time to stabilize. Support and psychoeducation given. Medication Change: No Medical Record Reviewed: Yes Mental Status Examination - Cognitive Function Orientation: Person, Place, Situation, Time Memory: Intact Attention: WNL Concentration: Poor Association: WNL Fund of Knowledge: Poor - Mood Mood: Depressed, Anxious - Affect Affect: Constricted, Depressed - Speech Speech: Soft - Formal Thought Process Formal Thought Process: No Impairment - Suicidal Ideation Suicidal Ideation: No - Homicidal Ideation Homicidal Ideation: No Goal/Treatment Plan - Goal/Treatment Plan Need for Continued Stay: Discharge may exacerbated symptoms Progress Toward Problem(s) and Goals/Treatment Plan: Major depressive disorder recurrent severe without psychotic features CBT Psychoeducation Supportive therapy, individual therapy Neurontin 100 mg PO TID Zoloft 100 mg PO Daily Trazodone 50 mg PO HS HTN Continue prescribed medications (Minoxidil, Labetalol) Monitor signs and symptoms DM Continue prescribed medications (Insulin) Monitor signs and symptoms - Smoking Cessation Smoking Cessation Initiated: No
[2016-10-24] MEDS: Labetalol Hydrochloride 300 mg Tab PO SCH ×2 (14:37→17:43)
[2016-10-24] MEDS: Pantoprazole 40 mg EC Tab PO SCH (14:40)
[2016-10-24] MEDS: (Lantus) Insulin Glargine, Recombinant SC SCH (21:07)
[2016-10-25] MEDS: (Novolog) Insulin Aspart, Recombinant 100 u/ml 10 ml vial SC SCH ×3 (08:19→17:22)
--- NOTE | 2016-10-25 10:37 | CP.PCM.PN ---
Subjective - Date & Time of Evaluation Date of Evaluation: 10/25/16 Time of Evaluation: 10:35 - Subjective Subjective: Feeling better Stable dialysis 09/24 HTN controlled Renvela dose was increased - will need to check phos level Repeat HD for AM Objective - Vital Signs/Intake and Output Vital Signs (last 24 hours): Temp Pulse Resp BP Pulse Ox 97.5 F L 83 20 151/66 H 96 10/24/16 13:53 10/24/16 16:32 10/24/16 13:53 10/24/16 16:32 10/24/16 09:55 - Medications Medications: Current Medications Acetaminophen (Tylenol 325mg Tab) 650 mg PO Q6 PRN PRN Reason: Pain, moderate (4-7) Last Admin: 10/23/16 16:31 Dose: 650 mg Cinacalcet (Sensipar) 90 mg PO DAILY [facility] Last Admin: 10/24/16 14:47 Dose: Not Given Gabapentin (Neurontin) 100 mg PO TID [facility] Last Admin: 10/24/16 17:43 Dose: 100 mg Insulin Aspart (Novolog) 0 unit SC ACHS [facility] PRN Reason: Protocol Last Admin: 10/25/16 08:19 Dose: Not Given Insulin Glargine (Lantus) 6 unit SC HS [facility] Last Admin: 10/24/16 21:07 Dose: 6 unit Labetalol HCl (Normodyne) 300 mg PO BID [facility] Last Admin: 10/24/16 17:43 Dose: 300 mg Minoxidil (Loniten) 10 mg PO Q12 [facility] Last Admin: 10/24/16 23:07 Dose: Not Given Pantoprazole Sodium (Protonix Ec Tab) 40 mg PO DAILY [facility] Last Admin: 10/24/16 14:40 Dose: Not Given Sertraline HCl (Zoloft) 50 mg PO DAILY [facility] Last Admin: 10/24/16 14:41 Dose: Not Given Sevelamer Carbonate (Renvela) 2,400 mg PO TIDCC [facility] Last Admin: 10/25/16 08:36 Dose: 2,400 mg Sevelamer Carbonate (Renvela) 800 mg PO WM [facility] Trazodone HCl (Desyrel) 50 mg PO HS [facility] Last Admin: 10/24/16 21:07 Dose: 50 mg - Constitutional Appears: No Acute Distress, Chronically Ill - Head Exam Head Exam: ATRAUMATIC, NORMAL INSPECTION - Eye Exam Eye Exam: EOMI, Normal appearance - Neck Exam Neck Exam: Normal Inspection. absent: Tenderness - Respiratory Exam Respiratory Exam: Clear to Ausculation Bilateral, NORMAL BREATHING PATTERN - Cardiovascular Exam Cardiovascular Exam: REGULAR RHYTHM, +S1 - GI/Abdominal Exam GI & Abdominal Exam: Soft. absent: Tenderness - Extremities Exam Extremities Exam: Normal Inspection. absent: Tenderness - Neurological Exam Neurological Exam: Alert, CN II-XII Intact - Skin Skin Exam: Dry, Warm Assessment and Plan (1) Depression (emotion) Status: Acute (2) ESRD (end stage renal disease) on dialysis Status: Acute (3) HTN (hypertension) Status: Chronic - Assessment and Plan (Free Text) Plan: Lower renvela dose Check chemistries Repeat HD in AM monitor BP
[2016-10-25] MEDS: Pantoprazole 40 mg EC Tab PO SCH (11:01)
[2016-10-25] MEDS: Labetalol Hydrochloride 300 mg Tab PO SCH ×2 (11:09→17:22)
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
[2016-10-25] MEDS: (Lantus) Insulin Glargine, Recombinant SC SCH (21:11)
[2016-10-26 10:15] LABS: HEMOGLOBIN 12.1 g/dL (11.0-16.0); MEAN CELL VOLUME 92.8 fL (81.0-99.0); MEAN CORPUSCULAR HEMOGLOBIN 30.4 pg (27.0-31.0); MEAN CORPUSCULAR HGB CONC 32.7 g/dL (33.0-37.0); MEAN PLATELET VOLUME 9.9 fL (7.2-11.7); RBC 3.99 Mil/uL (3.80-5.20); WHITE BLOOD COUNT 4.7 K/uL (4.8-10.8)
[2016-10-26 10:48] LABS: ALB/GLOB RATIO 1.2 (1.0-2.1); CALCIUM 8.5 mg/dl (8.6-10.4)
--- NOTE | 2016-10-26 12:09 | PCM.PYCHPN ---
Psychiatric Progress Note - Psychiatric Progress Note Patient seen today, length of contact: 15 min Patient Chief Complaint: "I am feeling little better." Problems Identified/Issues Discussed: Pt seen, chart reviewed, and case discussed with staff. As per staff, pt has started coming out of her room for groups and meetings. She remained a bit isolated and withdrawn. She reports improvement in her feelings of hopelessness or helplessness. She denies any auditory or visual hallucinations. Pt is going for dialysis today and remained compliant with medications, and reports no side effects. Symptoms are improving but needs time to stabilize. Support and psychoeducation given. Medication Change: Yes (Increase Zoloft) Medical Record Reviewed: Yes Mental Status Examination - Cognitive Function Orientation: Person, Place, Situation, Time Memory: Intact Attention: WNL Concentration: Poor Association: WNL Fund of Knowledge: Poor - Mood Mood: Depressed, Anxious - Affect Affect: Constricted, Depressed - Speech Speech: Soft - Formal Thought Process Formal Thought Process: No Impairment - Suicidal Ideation Suicidal Ideation: No - Homicidal Ideation Homicidal Ideation: No Goal/Treatment Plan - Goal/Treatment Plan Need for Continued Stay: Discharge may exacerbated symptoms Progress Toward Problem(s) and Goals/Treatment Plan: Major depressive disorder recurrent severe without psychotic features CBT Psychoeducation Supportive therapy, individual therapy Neurontin 100 mg PO TID Zoloft 150 mg PO Daily Trazodone 50 mg PO HS HTN Continue prescribed medications (Minoxidil, Labetalol) Monitor signs and symptoms DM Continue prescribed medications (Insulin) Monitor signs and symptoms - Smoking Cessation Smoking Cessation Initiated: No
[2016-10-26] MEDS: Labetalol Hydrochloride 300 mg Tab PO SCH ×2 (14:04→17:29)
[2016-10-26] MEDS: (Novolog) Insulin Aspart, Recombinant 100 u/ml 10 ml vial SC SCH ×4 (14:04→22:00)
[2016-10-26] MEDS: Pantoprazole 40 mg EC Tab PO SCH (14:05)
--- NOTE | 2016-10-26 14:17 | CP.PCM.PN ---
Subjective - Date & Time of Evaluation Date of Evaluation: 10/26/16 Time of Evaluation: 14:11 - Subjective Subjective: s/p dialysis now- UF 1300ml c/o excess lethargy BP well controlled now on high dose gabapentin for ESRD; will reduce dose Objective - Vital Signs/Intake and Output Vital Signs (last 24 hours): Temp Pulse Resp BP Pulse Ox 97.6 F 84 16 123/59 L 93 L 10/26/16 11:21 10/26/16 12:45 10/26/16 12:45 10/26/16 12:45 10/26/16 12:45 - Medications Medications: Current Medications Acetaminophen (Tylenol 325mg Tab) 650 mg PO Q6 PRN PRN Reason: Pain, moderate (4-7) Last Admin: 10/26/16 11:21 Dose: 650 mg Cinacalcet (Sensipar) 90 mg PO DAILY [facility] Last Admin: 10/26/16 14:05 Dose: Not Given Clonidine HCl (Catapres) 0.2 mg PO Q8 PRN PRN Reason: high blood pressure Last Admin: 10/25/16 16:17 Dose: 0.2 mg Gabapentin (Neurontin) 100 mg PO DAILY [facility] Insulin Aspart (Novolog) 0 unit SC [facility] PRN Reason: Protocol Last Admin: 10/26/16 14:05 Dose: Not Given Insulin Glargine (Lantus) 6 unit SC [facility] Last Admin: 10/25/16 21:11 Dose: 6 unit Labetalol HCl (Normodyne) 300 mg PO BID [facility] Last Admin: 10/26/16 14:04 Dose: Not Given Minoxidil (Loniten) 10 mg PO Q12 [facility] Last Admin: 10/26/16 14:04 Dose: Not Given Pantoprazole Sodium (Protonix Ec Tab) 40 mg PO DAILY [facility] Last Admin: 10/26/16 14:05 Dose: Not Given Sertraline HCl (Zoloft) 100 mg PO DAILY [facility] Last Admin: 10/26/16 14:06 Dose: Not Given Sevelamer Carbonate (Renvela) 2,400 mg PO TIDCC [facility] Last Admin: 10/26/16 14:05 Dose: Not Given Trazodone HCl (Desyrel) 50 mg PO HS [facility] Last Admin: 10/25/16 21:10 Dose: 50 mg - Labs Labs: 10/26/16 10:02 10/26/16 10:02 - Constitutional Appears: No Acute Distress, Chronically Ill - Head Exam Head Exam: ATRAUMATIC, NORMAL INSPECTION - Eye Exam Eye Exam: EOMI, Normal appearance - Neck Exam Neck Exam: Normal Inspection. absent: Tenderness - Respiratory Exam Respiratory Exam: Clear to Ausculation Bilateral, NORMAL BREATHING PATTERN - Cardiovascular Exam Cardiovascular Exam: REGULAR RHYTHM, +S1 - GI/Abdominal Exam GI & Abdominal Exam: Soft. absent: Tenderness - Extremities Exam Extremities Exam: Normal Inspection. absent: Tenderness - Neurological Exam Neurological Exam: Alert, CN II-XII Intact - Psychiatric Exam Psychiatric exam: Depressed - Skin Skin Exam: Dry, Warm Assessment and Plan (1) Depression (emotion) Status: Acute (2) ESRD (end stage renal disease) on dialysis Status: Acute (3) HTN (hypertension) Status: Chronic - Assessment and Plan (Free Text) Plan: Continue dialysis MWF Same BP meds Lower gabapentin dose
[2016-10-26] MEDS: (Lantus) Insulin Glargine, Recombinant SC SCH (22:02)
[2016-10-27] MEDS: (Novolog) Insulin Aspart, Recombinant 100 u/ml 10 ml vial SC SCH ×4 (07:57→21:13)
[2016-10-27] MEDS: Pantoprazole 40 mg EC Tab PO SCH (11:16)
[2016-10-27] MEDS: Labetalol Hydrochloride 300 mg Tab PO SCH ×2 (11:18→17:17)
--- NOTE | 2016-10-27 17:25 | PCM.PYCHPN ---
Psychiatric Progress Note - Psychiatric Progress Note Patient seen today, length of contact: 15 min Patient Chief Complaint: "I have diarrhea, pain" Problems Identified/Issues Discussed: The pt is seen, chart reviewed, case discussed with staff. Support given, CBT used briefly No new symptoms reported, except for medical and she is seen by her PCP regularly, imodium given She is improving slowly and needs some more time No SEs from medications, risks discussed. After care discussed - there will be a family meeting on Sat Medication Change: No Medical Record Reviewed: Yes Mental Status Examination - Cognitive Function Orientation: Person, Place, Situation, Time Memory: Intact Attention: WNL Concentration: Poor Association: WNL Fund of Knowledge: Poor - Mood Mood: Depressed, Anxious - Affect Affect: Constricted, Depressed - Speech Speech: Soft - Formal Thought Process Formal Thought Process: No Impairment - Suicidal Ideation Suicidal Ideation: No - Homicidal Ideation Homicidal Ideation: No Goal/Treatment Plan - Goal/Treatment Plan Need for Continued Stay: Discharge may exacerbated symptoms, Severe functional impairment Progress Toward Problem(s) and Goals/Treatment Plan: Continue medications Support and psychoeducation daily Attend groups and activities daily After care planning by ASHWIN Estimated Date of D/C: 10/30/16
--- NOTE | 2016-10-27 19:14 | CARD ---
APPROVED REPORT EKG Measurement Heart [id number] <Conclusion> Normal sinus rhythm Normal ECG
[2016-10-27] MEDS: (Lantus) Insulin Glargine, Recombinant SC SCH (21:16)
[2016-10-28] MEDS: (Novolog) Insulin Aspart, Recombinant 100 u/ml 10 ml vial SC SCH ×4 (07:30→21:55)
[2016-10-28] MEDS: Pantoprazole 40 mg EC Tab PO SCH (09:21)
[2016-10-28] MEDS: Labetalol Hydrochloride 300 mg Tab PO SCH ×2 (09:26→17:51)
--- NOTE | 2016-10-28 17:17 | PCM.PYCHPN ---
Psychiatric Progress Note - Psychiatric Progress Note Patient seen today, length of contact: 15 min Patient Chief Complaint: I'm not feeling better as my blood pressure is fluctuating. Problems Identified/Issues Discussed: Patient seen. Chart reviewed. Case discussed with the staff. Issues related to illness and treatment were discussed with the patient. Patient reported compliant with treatment with no adverse affects. Tolerating treatment very well. Patient reported her blood pressure is fluctuating and thinking that she is not getting her medications for blood pressure. Staff reported that patient is receiving her medications for blood pressure depending upon her blood pressure. If blood pressure is low, some of her blood pressure medications put on hold. Otherwise patient is stable. At the time of evaluation, patient was awake alert oriented 3, had no delusions, no auditory or visual hallucinations , no suicidal ideations or homicidal ideations. Medical Problems: Diabetes mellitus Hypertension ESRD Diagnostic Results: Reviewed DSM 5 Symptoms Update: Improvement with treatment Medication Change: No Medical Record Reviewed: Yes Consults ordered or reviewed: Reviewed Mental Status Examination - Cognitive Function Orientation: Person, Place, Situation, Time Memory: Intact Attention: WNL Concentration: WNL Association: WNL Fund of Knowledge: [facility] Decription of patient's judgement and insights: Fair - Mood Mood: Depressed (Less than before) - Affect Affect: Depressed - Speech Speech: Soft - Formal Thought Process Formal Thought Process: No Impairment Psychotic Thoughts and Behaviors: None - Suicidal Ideation Suicidal Ideation: No - Homicidal Ideation Homicidal Ideation: No Goal/Treatment Plan - Goal/Treatment Plan Need for Continued Stay: Remain at risks for inpatient hospitalization, Discharge may exacerbated symptoms, Severe functional impairment Progress Toward Problem(s) and Goals/Treatment Plan: Patient education Supportive therapy Continue treatment as before Estimated Date of D/C: 10/30/16 - Smoking Cessation Smoking Cessation Initiated: No
[2016-10-28] MEDS: (Lantus) Insulin Glargine, Recombinant SC SCH (22:03)
[2016-10-29] MEDS: (Novolog) Insulin Aspart, Recombinant 100 u/ml 10 ml vial SC SCH ×4 (07:45→22:12)
[2016-10-29] MEDS: Pantoprazole 40 mg EC Tab PO SCH (09:47)
[2016-10-29] MEDS: Labetalol Hydrochloride 300 mg Tab PO SCH ×2 (09:47→18:44)
--- NOTE | 2016-10-29 11:03 | CP.PCM.PN ---
Subjective - Date & Time of Evaluation Date of Evaluation: 10/29/16 Time of Evaluation: 11:01 - Subjective Subjective: Remains in psychiatry- on treatment for depression BP labile- only getting clonidine prn For dialysis later today No n, v, SOB, d, f, chills, SOB Objective - Vital Signs/Intake and Output Vital Signs (last 24 hours): Temp Pulse Resp BP Pulse Ox 97.7 F 61 18 121/76 98 10/29/16 09:40 10/29/16 09:40 10/29/16 09:40 10/29/16 09:40 10/28/16 12:31 - Medications Medications: Current Medications Acetaminophen (Tylenol 325mg Tab) 650 mg PO Q6 PRN PRN Reason: Pain, moderate (4-7) Last Admin: 10/26/16 22:45 Dose: 650 mg Cinacalcet (Sensipar) 90 mg PO DAILY [facility] Last Admin: 10/29/16 09:47 Dose: 90 mg Clonidine HCl (Catapres) 0.1 mg PO BID [facility] Gabapentin (Neurontin) 100 mg PO DAILY [facility] Last Admin: 10/29/16 09:47 Dose: 100 mg Insulin Aspart (Novolog) 0 unit SC ACHS [facility] PRN Reason: Protocol Last Admin: 10/29/16 07:45 Dose: Not Given Insulin Glargine (Lantus) 6 unit SC HS [facility] Last Admin: 10/28/16 22:03 Dose: Not Given Labetalol HCl (Normodyne) 300 mg PO BID [facility] Last Admin: 10/29/16 09:47 Dose: 300 mg Loperamide HCl (Imodium) 2 mg PO Q6H PRN PRN Reason: Diarrhea Last Admin: 10/27/16 15:21 Dose: 2 mg Minoxidil (Loniten) 10 mg PO Q12 [facility] Last Admin: 10/29/16 09:47 Dose: 10 mg Ondansetron HCl (Zofran Tab) 4 mg PO Q6H PRN PRN Reason: Nausea/Vomiting Last Admin: 10/28/16 19:41 Dose: 4 mg Pantoprazole Sodium (Protonix Ec Tab) 40 mg PO DAILY [facility] Last Admin: 10/29/16 09:47 Dose: 40 mg Sertraline HCl (Zoloft) 150 mg PO DAILY [facility] Last Admin: 07/10/17 09:47 Dose: 150 mg Sevelamer Carbonate (Renvela) 2,400 mg PO TIDCC [facility] Last Admin: 10/29/16 09:00 Dose: 2,400 mg Trazodone HCl (Desyrel) 50 mg PO HS [facility] Last Admin: 10/28/16 22:21 Dose: Not Given - Labs Labs: 10/26/16 10:02 10/26/16 10:02 - Constitutional Appears: No Acute Distress, Chronically Ill - Head Exam Head Exam: ATRAUMATIC, NORMAL INSPECTION - Eye Exam Eye Exam: EOMI, Normal appearance - Neck Exam Neck Exam: Normal Inspection. absent: Tenderness - Respiratory Exam Respiratory Exam: Clear to Ausculation Bilateral, NORMAL BREATHING PATTERN - Cardiovascular Exam Cardiovascular Exam: REGULAR RHYTHM, +S1 - GI/Abdominal Exam GI & Abdominal Exam: Soft. absent: Tenderness - Extremities Exam Extremities Exam: Normal Inspection. absent: Tenderness - Neurological Exam Neurological Exam: Alert, CN II-XII Intact - Skin Skin Exam: Dry, Warm Assessment and Plan (1) Depression (emotion) Status: Acute (2) ESRD (end stage renal disease) on dialysis Status: Acute (3) HTN (hypertension) Status: Chronic - Assessment and Plan (Free Text) Plan: Add regular dosed clonidine Dialysis today follow up labs Treat depression
[2016-10-29 14:41] LABS: HEMOGLOBIN 11.4 g/dL (11.0-16.0); MEAN CELL VOLUME 91.5 fL (81.0-99.0); MEAN CORPUSCULAR HEMOGLOBIN 30.2 pg (27.0-31.0); MEAN PLATELET VOLUME 11.4 fL (7.2-11.7); RBC 3.76 Mil/uL (3.80-5.20); RED CELL DISTRIBUTION WIDTH 17.4 % (11.5-14.5); WHITE BLOOD COUNT 5.1 K/uL (4.8-10.8)
[2016-10-29 14:53] LABS: ALBUMIN 4.4 g/dL (3.5-5.0)
[2016-10-29 14:56] LABS: ALB/GLOB RATIO 1.3 (1.0-2.1)
[2016-10-29 14:57] LABS: CALCIUM 7.5 mg/dl (8.6-10.4)
--- NOTE | 2016-10-29 15:56 | PCM.PYCHPN ---
Psychiatric Progress Note - Psychiatric Progress Note Patient seen today, length of contact: 15 min Patient Chief Complaint: "I am feeling little better." Problems Identified/Issues Discussed: Pt seen, chart reviewed, and case discussed with staff. Today patient reports improvement in her mood and reports improvement in her feelings of hopelessness or helplessness. She denies any auditory or visual hallucinations. Her dialysis is going well. Symptoms are improving but needs time to stabilize. Support and psychoeducation given. Medication Change: No Medical Record Reviewed: Yes Mental Status Examination - Cognitive Function Orientation: Person, Place, Situation, Time Memory: Intact Attention: WNL Concentration: WNL Association: WN Fund of Knowledge: WN - Mood Mood: Depressed (Less than before) - Affect Affect: Depressed - Speech Speech: Soft - Formal Thought Process Formal Thought Process: No Impairment - Suicidal Ideation Suicidal Ideation: No - Homicidal Ideation Homicidal Ideation: No Goal/Treatment Plan - Goal/Treatment Plan Need for Continued Stay: Remain at risks for inpatient hospitalization, Discharge may exacerbated symptoms, Severe functional impairment Progress Toward Problem(s) and Goals/Treatment Plan: Major depressive disorder recurrent severe without psychotic features CBT Psychoeducation Supportive therapy, individual therapy Neurontin 100 mg PO TID Zoloft 150 mg PO Daily Trazodone 50 mg PO HS HTN Continue prescribed medications (Minoxidil, Labetalol) Monitor signs and symptoms DM Continue prescribed medications (Insulin) Monitor signs and symptoms CRF Pt on Dialysis M, W, F Estimated Date of D/C: 10/30/16 - Smoking Cessation Smoking Cessation Initiated: No
[2016-10-29 18:25] VITALS: RESP 18; O2SAT 95
[2016-10-29] MEDS: (Lantus) Insulin Glargine, Recombinant SC SCH (22:17)
--- NOTE | 2016-10-30 02:34 | CP.PCM.PN ---
Subjective - Date & Time of Evaluation Date of Evaluation: 10/30/16 Time of Evaluation: 02:30 - Subjective Subjective: House Doctor Paged for Chest pain Patient evaluated at bedside. Chest pain described as midsternal, does not radiate. Patient reports her blood pressure was high and this makes her nervous. Denied diaphoresis, SOB, radiation. ROMIx 1, cbc, cmp, mag, phos, EKG were ordered. JOLANTA negative EKG NSR unchanged from previous EKG. Objective - Vital Signs/Intake and Output Vital Signs (last 24 hours): Temp Pulse Resp BP Pulse Ox 97.9 F 84 18 147/61 95 10/29/16 17:40 10/29/16 18:33 10/29/16 17:40 10/29/16 18:33 10/29/16 17:40 - Medications Medications: Current Medications Acetaminophen (Tylenol 325mg Tab) 650 mg PO Q6 PRN PRN Reason: Pain, moderate (4-7) Last Admin: 10/26/16 22:45 Dose: 650 mg Cinacalcet (Sensipar) 90 mg PO DAILY [facility] Last Admin: 10/29/16 09:47 Dose: 90 mg Clonidine HCl (Catapres) 0.1 mg PO BID [facility] Last Admin: 10/29/16 18:45 Dose: Not Given Gabapentin (Neurontin) 100 mg PO DAILY [facility] Last Admin: 10/29/16 09:47 Dose: 100 mg Hydroxyzine HCl (Atarax) 25 mg PO Q8H PRN PRN Reason: Anxiety Last Admin: 10/30/16 00:53 Dose: 25 mg Insulin Aspart (Novolog) 0 unit SC ACHS [facility] PRN Reason: Protocol Last Admin: 10/29/16 22:12 Dose: Not Given Insulin Glargine (Lantus) 6 unit SC HS [facility] Last Admin: 10/29/16 22:17 Dose: 6 unit Labetalol HCl (Normodyne) 300 mg PO BID [facility] Last Admin: 10/29/16 18:44 Dose: 300 mg Loperamide HCl (Imodium) 2 mg PO Q6H PRN PRN Reason: Diarrhea Last Admin: 10/27/16 15:21 Dose: 2 mg Minoxidil (Loniten) 10 mg PO Q12 [facility] Last Admin: 10/29/16 22:16 Dose: 10 mg Ondansetron HCl (Zofran Tab) 4 mg PO Q6H PRN PRN Reason: Nausea/Vomiting Last Admin: 10/28/16 19:41 Dose: 4 mg Pantoprazole Sodium (Protonix Ec Tab) 40 mg PO DAILY [facility] Last Admin: 10/29/16 09:47 Dose: 40 mg Sertraline HCl (Zoloft) 150 mg PO DAILY [facility] Last Admin: 10/29/16 09:47 Dose: 150 mg Sevelamer Carbonate (Renvela) 2,400 mg PO TIDCC [facility] Last Admin: 10/29/16 18:44 Dose: 2,400 mg Trazodone HCl (Desyrel) 50 mg PO HS [facility] Last Admin: 10/29/16 22:13 Dose: Not Given - Labs Labs: 10/29/16 14:32 10/29/16 14:32
[2016-10-30 03:39] LABS: ALBUMIN 4.2 g/dL (3.5-5.0)
[2016-10-30 03:42] LABS: ALB/GLOB RATIO 1.2 (1.0-2.1); ALT/SGPT 19 U/L (9-52); AST/SGOT 21 U/L (14-36); BLOOD UREA NITROGEN 45 mg/dL (7-17); CALCIUM 7.8 mg/dl (8.6-10.4); GFR AFRICAN-AMERICAN 9; GFR NON-AFRICAN AMERICAN 8
[2016-10-30 03:43] LABS: MAGNESIUM 2.2 mg/dL (1.6-2.3)
[2016-10-30 03:51] LABS: CK-MB 3.77 ng/mL (0.0-3.38)
[2016-10-30 08:01] VITALS: BP 126/57; PULSE 86; TEMP 98.3
[2016-10-30 08:50] LABS: HEMOGLOBIN 11.5 g/dL (11.0-16.0); MEAN CELL VOLUME 93.2 fL (81.0-99.0); MEAN CORPUSCULAR HGB CONC 32.2 g/dL (33.0-37.0); MEAN PLATELET VOLUME 9.9 fL (7.2-11.7); RBC 3.84 Mil/uL (3.80-5.20); RED CELL DISTRIBUTION WIDTH 17.4 % (11.5-14.5); WHITE BLOOD COUNT 5.4 K/uL (4.8-10.8)
[2016-10-30] MEDS: (Novolog) Insulin Aspart, Recombinant 100 u/ml 10 ml vial SC SCH ×2 (08:53→12:02)
[2016-10-30] MEDS: Labetalol Hydrochloride 300 mg Tab PO SCH (09:44)
[2016-10-30] MEDS: Pantoprazole 40 mg EC Tab PO SCH (09:44)
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
--- NOTE | 2016-10-30 12:04 | CP.PCM.PN ---
Subjective - Date & Time of Evaluation Date of Evaluation: 10/30/16 Time of Evaluation: 12:03 - Subjective Subjective: no events notes reviewed no cp /sob/n/v/d/fevers for dc today Objective - Vital Signs/Intake and Output Vital Signs (last 24 hours): Temp Pulse Resp BP Pulse Ox 98.3 F 86 18 126/57 L 95 10/30/16 08:00 10/30/16 08:00 10/30/16 08:00 10/30/16 08:00 10/29/16 17:40 - Medications Medications: Current Medications Acetaminophen (Tylenol 325mg Tab) 650 mg PO Q6 PRN PRN Reason: Pain, moderate (4-7) Last Admin: 10/26/16 22:45 Dose: 650 mg Cinacalcet (Sensipar) 90 mg PO DAILY [facility] Last Admin: 10/30/16 09:45 Dose: 90 mg Clonidine HCl (Catapres) 0.1 mg PO BID [facility] Last Admin: 10/30/16 09:44 Dose: 0.1 mg Gabapentin (Neurontin) 100 mg PO BID [facility] Hydroxyzine HCl (Atarax) 25 mg PO Q8H PRN PRN Reason: Anxiety Last Admin: 10/30/16 00:53 Dose: 25 mg Insulin Aspart (Novolog) 0 unit SC ACHS [facility] PRN Reason: Protocol Last Admin: 10/30/16 08:53 Dose: Not Given Insulin Glargine (Lantus) 6 unit SC HS [facility] Last Admin: 10/29/16 22:17 Dose: 6 unit Labetalol HCl (Normodyne) 300 mg PO BID [facility] Last Admin: 10/30/16 09:44 Dose: 300 mg Loperamide HCl (Imodium) 2 mg PO Q6H PRN PRN Reason: Diarrhea Last Admin: 10/27/16 15:21 Dose: 2 mg Minoxidil (Loniten) 10 mg PO Q12 [facility] Last Admin: 10/30/16 09:46 Dose: 10 mg Ondansetron HCl (Zofran Tab) 4 mg PO Q6H PRN PRN Reason: Nausea/Vomiting Last Admin: 10/28/16 19:41 Dose: 4 mg Pantoprazole Sodium (Protonix Ec Tab) 40 mg PO DAILY [facility] Last Admin: 10/30/16 09:44 Dose: 40 mg Sertraline HCl (Zoloft) 200 mg PO DAILY [facility] Sevelamer Carbonate (Renvela) 2,400 mg PO TIDCC [facility] Last Admin: 10/30/16 08:30 Dose: 2,400 mg Trazodone HCl (Desyrel) 100 mg PO [facility] - Labs Labs: 10/30/16 08:46 10/30/16 03:22 - Constitutional Appears: Non-toxic, No Acute Distress, Chronically Ill - Head Exam Head Exam: NORMAL INSPECTION - Eye Exam Eye Exam: Normal appearance - ENT Exam ENT Exam: Mucous Membranes Moist, Normal Exam - Neck Exam Neck Exam: Normal Inspection - Respiratory Exam Respiratory Exam: Clear to Ausculation Bilateral, NORMAL BREATHING PATTERN - Cardiovascular Exam Cardiovascular Exam: REGULAR RHYTHM, RRR - GI/Abdominal Exam GI & Abdominal Exam: Soft, Normal Bowel Sounds - Extremities Exam Extremities Exam: Normal Inspection Assessment and Plan (1) Depression Status: Acute (2) Chronic pain Status: Acute (3) ESRD (end stage renal disease) on dialysis Status: Acute (4) Type 2 diabetes mellitus with diabetic nephropathy Status: Acute (5) HTN (hypertension) Status: Chronic - Assessment and Plan (Free Text) Assessment: hd mwf stable from renal standpoint
== END 2016-10-30 16:47 | disposition home or self-care (01) | DRG 430 ==
LOC: C.ER 21:57 → C.5E 10-23 01:08
PROVIDERS: ADMIT Psychiatry & Neurology Psychiatry; ATTEND Psychiatry & Neurology Psychiatry
PROC: GZ58ZZZ Individual Psychotherapy, Cognitive-Behavioral (ICD-10-PCS; principal; 2016-10-23)
PROC: GZ56ZZZ Individual Psychotherapy, Supportive (ICD-10-PCS; 2016-10-23)
PROC: 5A1D60Z (ICD-10-PCS; 2016-10-24)
DX: F33.2 Major depressive disorder, recurrent severe without psychotic features (principal); I12.0 Hypertensive chronic kidney disease with stage 5 chronic kidney disease or end stage renal disease; R45.851 Suicidal ideations; N18.6 End stage renal disease; E11.22 Type 2 diabetes mellitus with diabetic chronic kidney disease; F15.10 Other stimulant abuse, uncomplicated; E11.21 Type 2 diabetes mellitus with diabetic nephropathy; Z99.2 Dependence on renal dialysis; Z79.4 Long term (current) use of insulin; F17.210 Nicotine dependence, cigarettes, uncomplicated; Z86.73 Personal history of transient ischemic attack (TIA), and cerebral infarction without residual deficits; R07.89 Other chest pain

== ENCOUNTER 2016-12-05 16:23 | Emergency (ER) | payer OTHER ==
[2016-12-05 16:23] VITALS: BMI 21.9
[2016-12-05 16:36] VITALS: TEMP 98.4; O2SAT 99
--- NOTE | 2016-12-05 17:02 | C.PDOC ---
History Of Present Illness NEW ONSET R EYE PAIN SINCE TODAY. NO TRAUMA. PS INITIALLY W REDNESS, TEARING NOW RESOLVED BUT PAIN STILL PRESENT. NO PHOTOPHOBIA. NEW ONSET VISION CHANGE STATES RED/BLACK HALO AROUND VISUAL FIELD, CLEAR MIDDLE. +LIGHT FLASHES. HO B/L RETINA LASER ABLATION AND CATARACT REPAIR EXAM MILD DIST NONTOXI HEENT no photoPHOBIA; PERRLA; NO CONJ INJECTION, TEARING. EOMI. VISION WNL L EYE REMAINDER NEG Time Seen by Provider: 12/05/16 16:45 Chief Complaint (Nursing): Eye Problem History Per: Patient History/Exam Limitations: no limitations Onset/Duration Of Symptoms: Hrs Current Symptoms Are (Timing): Still Present Injury To Eye?: No Quality: "Pain" Associated Symptoms: Pain Recent travel outside of the [place]: No Past Medical History Reviewed: Historical Data, Nursing Documentation, Vital Signs Vital Signs: Last Vital Signs Temp 98.4 F 12/05/16 16:33 Pulse 90 12/05/16 16:33 Resp 16 12/05/16 16:33 BP 123/68 12/05/16 16:33 Pulse Ox 99 12/05/16 17:42 - Medical History PMH: Anemia, Depression, Diabetes, Fractures (RT ANKLE), HTN, Pneumonia, End Stage Renal Disease (M-W-F), Chronic Kidney Disease, Seizures (2008) - [facility] Procedures DILATION OF R BASILIC VEIN WITH INTRALUM DEV, PERC APPROACH (07/13/16) EXTIRPATION OF MATTER FROM RIGHT BASILIC VEIN, PERC APPROACH (07/13/16) FLUOROSCOPY OF INF VENA CAVA USING L OSM CONTRAST, GUIDANCE (05/29/16) INDIVIDUAL PSYCHOTHERAPY, COGNITIVE-BEHAVIORAL (10/23/16) INDIVIDUAL PSYCHOTHERAPY, SUPPORTIVE (10/23/16) INSERTION OF INFUSION DEV INTO INF VENA CAVA, PERC APPROACH (05/29/16) INSERTION OF INFUSION DEV INTO SUP VENA CAVA, PERC APPROACH (07/13/16) INTRODUCE OTH THROMBOLYTIC IN PERIPH VEIN, PERC (07/13/16) PERFORMANCE OF URINARY FILTRATION, MULTIPLE (10/23/16) REMOVAL OF OTHER DEVICE ON RIGHT INGUINAL REGION (05/29/16) ULTRASONOGRAPHY OF INFERIOR VENA CAVA, GUIDANCE (07/13/16) Family History: States: Unknown Family Hx - Social History Hx Tobacco Use: Yes Hx Alcohol Use: No Hx Substance Use: No - Immunization History Hx Tetanus Toxoid Vaccination: No Hx Influenza Vaccination: Yes Hx Pneumococcal Vaccination: No Review Of Systems Except As Marked, All Systems Reviewed And Found Negative. Constitutional: Negative for: Fever, Chills Eyes: Positive for: Pain, Redness. Negative for: Vision Change ENT: Negative for: Throat Pain Physical Exam - Physical Exam Appears: Non-toxic, Other (MILD DISTRESS) Skin: Normal Color, Warm, Dry Head: Atraumatic, Normacephalic Eye(s): bilateral: PERRL, EOMI, Other (NO PHOTOPHOBIA, CONJUNCTIVAL INJECTION, TEARING. VISION WNL LEFT EYE) Ear(s): Bilateral: Normal Nose: Normal Oral Mucosa: Moist Throat: Normal, No Erythema, No Exudate Neck: Normal ROM, Supple Extremity: Normal ROM, Capillary Refill (< 2 SEC.) Neurological/Psych: Oriented x3, Normal Speech, Normal Cognition ED Course And Treatment O2 Sat by Pulse Oximetry: 99 (RA) Pulse Ox Interpretation: Normal Progress - Re-Evaluation Re-evaluation Note: 12/05/16 17:[address] ARREOLA OPTHO SR COMMUNITY MANAGER 12/05/16 17:19 D/W DR ARREOLA: NO EMERGENCY REPAIR @ THIS TIME. PT NEEDS REFERRAL RETINA SPECIALIST. CAN FU PT IN OFFICE TOMORROW. DC W PAIN RX, AVOID STRENUOUS ACTIVITY PT AGREES W DC PLAN - Data Reviewed Data Reviewed: Old records - Continuity of Care Discussed patient case with:: Patient Discussed pt. case with small business consultant/specialty: Opthalmology Disposition Counseled Patient/Family Regarding: Studies Performed, Diagnosis, Need For Followup, Rx Given - Disposition Referrals: Braulio Arreola MD [Staff Provider] - RETINA, SPECIALIST [Other] (`) Disposition: HOME/ ROUTINE Disposition Time: 17:39 Condition: IMPROVED Additional Instructions: YOU HAVE POTENTIAL RETINAL DETACHMENT. Pain medicine: You may be given medicine to take away or decrease pain. Do not wait until the pain is severe before you take your medicine. Self-care: Do not rub your eye: You may need to wear an eye patch to protect your eye, especially at night. Rest or sleep in a certain position as directed: You may need to rest and sleep with your head in a certain position. This will help decrease eye pressure and swelling. Ask what position to rest or sleep in and how many days to do this. Do not travel by airplane: Changes in pressure may cause pain and damage to your eye. Ask your electrocardiogram technician how long you need to wait to travel by airplane. Do not strain when you have a bowel movement: This can increase the pressure in your eye and cause damage. Prescriptions: Docusate Sodium [Colace] 100 mg PO BID PRN #30 capsule PRN Reason: Constipation oxyCODONE/Acetaminophen [Percocet 5/325 mg Tab] 1 tab PO QID PRN #14 tab PRN Reason: Pain Forms: [employer] (Icelandic) - Clinical Impression Clinical Impression: Pain in eye, Retinal detachment - Scribe Statement The provider has reviewed the documentation as recorded by the Scribe SM All medical record entries made by the Scribe were at my direction and personally dictated by me. I have reviewed the chart and agree that the record accurately reflects my personal performance of the history, physical exam, medical decision making, and the department course for this patient. I have also personally directed, reviewed, and agree with the discharge instructions and disposition.
[2016-12-05 18:18] VITALS: BP 120/61; PULSE 92; RESP 18
== END 2016-12-05 18:18 | disposition home or self-care (01) ==
LOC: C.ER 16:23
DX: H33.21 Serous retinal detachment, right eye (principal); H57.11 Ocular pain, right eye
CPT/HCPCS: 96374; 99283; J2270

== ENCOUNTER 2017-01-02 18:39 | Inpatient (IN) | payer MEDICARE, OTHER ==
[2017-01-02 19:00] VITALS: BMI 22.2
--- NOTE | 2017-01-02 20:32 | C.PDOC ---
History Of Present Illness 41 year old female with a Hx of kidney failure, diabetes, and HTN who presents to the ER with a complaint of body aches, chest pressure pain, and pain to the dialysis port. Patient reports the chest pain is located at the sternum and is nonradiating with no alleviating or exacerbating factors. She is short of breath and hyperventilating due to the pain. She takes 2 Percocet 5/325 tablets for pain at home. Patient reports she had a clot removed from her leg in the past but denies any clotting disorders. Denies Hx of smoking/ETOH/drug use, nausea, vomiting, or abdominal pain. Time Seen by Provider: 01/02/17 19:30 Chief Complaint (Nursing): Chest Pain History Per: Patient History/Exam Limitations: no limitations Onset/Duration Of Symptoms: Hrs Current Symptoms Are (Timing): Still Present Associated Symptoms: denies: Nausea, Diaphoresis, Syncope Modifying Factors: None Exacerbating Factors: None Alleviating Factors: None Recent travel outside of the [place]: No Past Medical History Reviewed: Historical Data, Nursing Documentation, Vital Signs Vital Signs: Last Vital Signs Temp 103 F H 01/02/17 23:42 Pulse 118 H 01/02/17 23:19 Resp 18 01/02/17 23:19 BP 117/44 L 01/02/17 23:19 Pulse Ox 96 01/03/17 00:44 - Medical History PMH: Anemia, Anxiety, Depression, Diabetes, Fractures (RT ANKLE), HTN, Pneumonia , End Stage Renal Disease (M-W-F), Chronic Kidney Disease, Seizures (2008) - [facility] Procedures DILATION OF R BASILIC VEIN WITH INTRALUM DEV, PERC APPROACH (07/13/16) EXTIRPATION OF MATTER FROM RIGHT BASILIC VEIN, PERC APPROACH (07/13/16) FLUOROSCOPY OF INF VENA CAVA USING L OSM CONTRAST, GUIDANCE (05/29/16) INDIVIDUAL PSYCHOTHERAPY, COGNITIVE-BEHAVIORAL (10/23/16) INDIVIDUAL PSYCHOTHERAPY, SUPPORTIVE (10/23/16) INSERTION OF INFUSION DEV INTO INF VENA CAVA, PERC APPROACH (05/29/16) INSERTION OF INFUSION DEV INTO SUP VENA CAVA, PERC APPROACH (07/13/16) INTRODUCE OTH THROMBOLYTIC IN PERIPH VEIN, PERC (07/13/16) PERFORMANCE OF URINARY FILTRATION, MULTIPLE (10/23/16) REMOVAL OF OTHER DEVICE ON RIGHT INGUINAL REGION (05/29/16) ULTRASONOGRAPHY OF INFERIOR VENA CAVA, GUIDANCE (07/13/16) Family History: States: Unknown Family Hx - Social History Hx Tobacco Use: Yes Hx Alcohol Use: No Hx Substance Use: No - Immunization History Hx Tetanus Toxoid Vaccination: No Hx Influenza Vaccination: No Hx Pneumococcal Vaccination: No Review Of Systems Constitutional: Positive for: Chills, Other (Fatigue). Negative for: Fever Cardiovascular: Positive for: Chest Pain. Negative for: Palpitations Respiratory: Positive for: Shortness of Breath Gastrointestinal: Positive for: Constipation. Negative for: Nausea, Vomiting, Abdominal Pain, Diarrhea Physical Exam - Physical Exam Appears: Non-toxic, Other (Cachetic) Skin: Warm, Dry, Rash (Small over knees), Other (Burn to left forearm) Head: Atraumatic, Normacephalic Oral Mucosa: Moist Neck: Normal, Supple Chest: Symmetrical, No Tenderness Cardiovascular: Rhythm Regular, No Murmur Respiratory: No Rales, Rhonchi (at left base laterally), No Wheezing Gastrointestinal/Abdominal: Soft, No Tenderness, No Distention, No Guarding Extremity: Normal ROM (x4), Other (Bandaging over dialysis port. No tenderness in the arm) Neurological/Psych: Oriented x3, Normal Speech, Normal Cognition ED Course And Treatment - Laboratory Results Result Diagrams: 01/02/17 20:36 01/02/17 21:49 Lab Interpretation: No Acute Changes (WBC 11.8 with slight left shift) ECG: Interpreted By Ak ECG Rhythm: Sinus Rhythm ECG Interpretation: Normal O2 Sat by Pulse Oximetry: 96 (Room air) Pulse Ox Interpretation: Normal Progress Note: Blood work and EKG ordered. 23:45 Patient developed fever to 103. Blood cultures ordered. Patient to be admitted. Reevaluation Time: 22:37 Reassessment Condition: Improved (but still c/o severe generalized pain. Now c/ o nausea but is not actively vomiting.) - Physician Consult Information Time Consulting Physician Contacted: 00:39 Physician Contacted: Arturo Piedra Outcome Of Conversation: Patient to be admitted for possible pneumonia Disposition - Disposition Disposition: HOSPITALIZED Disposition Time: 00:42 Condition: FAIR - Clinical Impression Clinical Impression: ESRD (end stage renal disease) on dialysis, Fever, Body aches - Scribe Statement The provider has reviewed the documentation as recorded by the Scribe Capo Calderón All medical record entries made by the Scribe were at my direction and personally dictated by me. I have reviewed the chart and agree that the record accurately reflects my personal performance of the history, physical exam, medical decision making, and the department course for this patient. I have also personally directed, reviewed, and agree with the discharge instructions and disposition.
[2017-01-02 20:39] LABS: BASO # 0.1 K/uL (0.0-0.2); BASO % 0.6 % (0.0-2.0); EOS # 0.2 K/uL (0.0-0.7); EOS % 2.1 % (0.0-4.0); HEMATOCRIT 33.5 % (34.0-47.0); LYMPH # 0.9 K/uL (1.0-4.3); LYMPH % 7.5 % (20.0-40.0); MEAN CELL VOLUME 90.8 fL (81.0-99.0); MEAN CORPUSCULAR HEMOGLOBIN 30.6 pg (27.0-31.0); MEAN CORPUSCULAR HGB CONC 33.8 g/dL (33.0-37.0); MEAN PLATELET VOLUME 11.3 fL (7.2-11.7); MONO # 0.5 K/uL (0.0-0.8); PLATELET COUNT 100 K/uL (130-400); RED CELL DISTRIBUTION WIDTH 15.2 % (11.5-14.5); WHITE BLOOD COUNT 11.8 K/uL (4.8-10.8)
[2017-01-02] MEDS ORDERED: Oxycodone/Acetaminophen 5/325 mg Tab PO STA (20:40)
[2017-01-02] MEDS ORDERED: Oxycodone/Acetaminophen 5/325 mg Tab ONE (20:43)
[2017-01-02 22:15] LABS: EOSINOPHIL 3 % (0-4); NEUTROPHIL 86 % (50-75); TOTAL CELLS COUNTED 100
[2017-01-02 22:17] LABS: POTASSIUM 4.5 mmol/L (3.6-5.2)
[2017-01-02 22:19] LABS: ALB/GLOB RATIO 1.3 (1.0-2.1); BILIRUBIN,TOTAL 0.6 mg/dL (0.2-1.3); TOTAL PROTEIN 8.5 g/dL (6.3-8.3)
[2017-01-02 22:20] LABS: CALCIUM 10.2 mg/dl (8.6-10.4)
[2017-01-02] MEDS ORDERED: Iodixanol 320 MG/ML 100 ML BOTTLE IV ONE (23:30)
--- NOTE | 2017-01-03 02:44 | CT ---
EXAM: CT Angiography Chest With Intravenous Contrast CLINICAL HISTORY: 41 years old, female; Pain; Chest pain; Patient HX: 06-01-16; Additional info: Chest pain with SOB TECHNIQUE: Axial computed tomographic angiography images of the chest with intravenous contrast using pulmonary embolism protocol. All CT scans at this facility use one or more dose reduction techniques, viz.: automated exposure control; ma/kV adjustment per patient size (including targeted exams where dose is matched to indication; i.e. head); or iterative reconstruction technique. MIP reconstructed images were created and reviewed. Coronal and sagittal reformatted images were created and reviewed. CONTRAST: 100 mL of [id number] administered intravenously. COMPARISON: CT - CHEST W/O CONTRAST 06/01/2016 3:25:35 PM FINDINGS: Pulmonary arteries: No definite pulmonary embolism. Aorta: No aneurysm. No dissection. Lungs: Patchy, predominantly bandlike opacities within lung bases. Mosaic pattern of lung parenchyma with extensive scattered groundglass opacities. Pleural space: No significant effusion. No pneumothorax. Heart: Mild cardiomegaly. No significant pericardial effusion. Thyroid: Heterogeneous with several calcified and noncalcified nodules. Bones/joints: Degenerative changes of spine. Fragmentation/collapse of C7, T1 vertebral bodies. Increased density of visualized bones, grossly stable. Soft tissues: Stent within RIGHT axillary region. Lymph nodes: No pathologically enlarged lymph nodes. Gallbladder and bile ducts: Calcified gallstones. Kidneys and ureters: Mild atrophy of kidneys. Few hypodense lesions within kidneys, incompletely characterized. Upper abdomen: Atherosclerotic disease of visualized arteries. IMPRESSION: 1. No definite CT evidence of pulmonary embolism. 2. Mosaic pattern of lung parenchyma, nonspecific. DDX: Air-trapping, interstitial edema, interstitial pneumonia, interstitial lung disease. Clinical correlation is needed. 3. Probable bibasilar atelectasis. Superimposed pneumonia not excluded. 4. Heterogeneous thyroid. Followup as clinically warranted. 5. Incidental/non-acute findings are described above.
--- NOTE | 2017-01-03 03:32 | CP.PCM.HP ---
<Fred Celaya - Last Filed: 01/03/17 09:14> History of Present Illness - History of Present Illness History of Present Illness: PGY1 Medicine Note for Dr. Piedra 41 year female with PMH of DM type 1, HTN, ESRD on HD (MWF) presents to the ED with muscle spasms, chest pain and palpitations. The chest pain is located at to the right of the sternum and is non radiating. Nothing makes the pain better , nothing makes it worse. The patient reported some SOB earlier but it has since resolved. She is still experiencing some pain in her chest but it is currently a dull pain. She says she feels like her heart is racing and can feel it want to beat out of her chest. She states she is also having back spasms in between her shoulder blades and across her low back. Patient states that all of this started earlier today when she finished her dialysis treatment. She states since being in the ED, her pain and breathing have improved, but she has been experiencing a fever and got lightheaded when she attempted to stand up. The muscle spasms that the patient was reporting on arrival were located in her arms and legs but have since resolved. Denies chills, n/v, d/c, abdominal pain, vision changes or [place]. PMH: DM, HTN, ESRD on HD (MWF) PSH; RLE AVF, RLE clot thrombolysis, cataract surgery Social: Denies ETOH, tobacco, or illicit drug use PMD: Denies currently having one d/t insurance Nephro: [facility]: [facility] (on [address]) Present on Admission - Present on Admission Any Indicators Present on Admission: No Review of Systems - Constitutional Constitutional: Fever. absent: Chills, Headache - EENT Eyes: absent: Blurred Vision, Change in Vision Nose/Mouth/Throat: absent: Nasal Congestion, Sore Throat - Cardiovascular Cardiovascular: Chest Pain (right side of her sternum ), Dyspnea. absent: Diaphoresis, Pain Radiating to Arm/Neck/Jaw, Pedal Edema, Radiating Pain, Syncope - Respiratory Respiratory: Dyspnea. absent: Cough, Wheezing - Gastrointestinal Gastrointestinal: absent: Abdominal Pain, Constipation, Diarrhea, Nausea, Vomiting - Musculoskeletal Musculoskeletal: Back Pain (between shoulder blades, low back b/l), Muscle Cramps. absent: Neck Pain Additional comments: arms and legs, since resolved. - Integumentary Integumentary: absent: Erythema, Pruritus, Rash - Neurological Neurological: absent: Confusion, Dizziness, Frequent Falls, Headaches, Syncope, Tingling, Vertigo, Weakness - Psychiatric Psychiatric: absent: Confusion Past Patient History - Infectious Disease Hx of Infectious Diseases: None - Past Medical History & Family History Past Medical History?: Yes - Past Social History Smoking Status: Never Smoked - CARDIAC Hx Hypertension: Yes - PULMONARY Hx Pneumonia: Yes - NEUROLOGICAL Hx Seizures: Yes (2008) - HEENT Hx HEENT Problems: Yes Hx Cataracts: Yes (HAD CUATE CATARACT SURGERY) - RENAL Hx Chronic Kidney Disease: Yes - ENDOCRINE/METABOLIC Hx Endocrine Disorders: Yes Hx Diabetes Mellitus Type 1: Yes - HEMATOLOGICAL/ONCOLOGICAL Hx Anemia: Yes - INTEGUMENTARY Hx Dermatological Problems: No - MUSCULOSKELETAL/RHEUMATOLOGICAL Hx Fractures: Yes (RT ANKLE) - GASTROINTESTINAL Hx Gastrointestinal Disorders: Yes Hx Ulcer: Yes - GENITOURINARY/GYNECOLOGICAL Hx Genitourinary Disorders: No - PSYCHIATRIC Hx Anxiety: Yes Hx Depression: Yes Hx Substance Use: No - SURGICAL HISTORY Hx Surgeries: Yes Hx Arteriovenous Shunt: Yes (NON FUNC MITZI, NEW SIDNEY) Hx Cataract Extraction: Yes Hx Eye Surgery: Yes (RETINA RT) - ANESTHESIA Hx Anesthesia: Yes Hx Anesthesia Reactions: No Hx Malignant Hyperthermia: No Meds Allergies/Adverse Reactions: Allergies Allergy/AdvReac Type Severity Reaction Status Date / Time No Known Allergies Allergy Verified 01/02/17 18:58 Physical Exam - Constitutional Appears: Non-toxic, No Acute Distress, Older Than Stated Age - Head Exam Head Exam: ATRAUMATIC, NORMOCEPHALIC - Eye Exam Eye Exam: EOMI, Normal appearance, PERRL Pupil Exam: PERRL - ENT Exam ENT Exam: Mucous Membranes Moist, Normal Exam - Neck Exam Neck exam: Positive for: Normal Inspection - Respiratory Exam Respiratory Exam: Clear to Auscultation Bilateral, NORMAL BREATHING PATTERN. absent: Rales, Wheezes, Respiratory Distress - Cardiovascular Exam Cardiovascular Exam: Tachycardia (High 100's throughout exam), REGULAR RHYTHM, + S1, +S2 - GI/Abdominal Exam GI & Abdominal Exam: Normal Bowel Sounds, Soft. absent: Distended, Rebound, Rigid, Tenderness - Extremities Exam Extremities exam: Positive for: normal inspection, pedal pulses present. Negative for: calf tenderness, pedal edema, tenderness Additional comments: AV fistula on right arm - Back Exam Back exam: NORMAL INSPECTION. absent: muscle spasm, paraspinal tenderness, rash noted, tenderness, vertebral tenderness - Neurological Exam Neurological exam: Alert, CN II-XII Intact, Oriented x3 - Psychiatric Exam Psychiatric exam: Normal Affect, Normal Mood - Skin Skin Exam: Dry, Normal Color, Warm Results - Vital Signs Recent Vital Signs: Last Vital Signs Temp 100.3 F H 01/03/17 02:27 Pulse 118 H 01/02/17 23:19 Resp 18 01/02/17 23:19 BP 117/44 L 01/02/17 23:19 Pulse Ox 96 01/03/17 00:53 - Labs Result Diagrams: 01/03/17 06:06 01/03/17 06:06 Labs: Laboratory Results - last 24 hr 01/02/17 01/02/17 01/02/17 20:36 20:36 21:18 WBC 11.8 H D RBC 3.69 L Hgb 11.3 Hct 33.5 L MCV 90.8 MCH 30.6 MCHC 33.8 RDW 15.2 H Plt Count 100 L MPV 11.3 Neut % (Auto) 85.8 H Lymph % (Auto) 7.5 L [place] % (Auto) 4.0 Eos % (Auto) 2.1 Baso % (Auto) 0.6 Neut # 10.1 H Lymph # 0.9 L [place] # 0.5 Eos # 0.2 Baso # 0.1 Neutrophils % (Manual) 86 H Lymphocytes % (Manual) 10 L Monocytes % (Manual) 1 Eosinophils % (Manual) 3 Platelet Estimate Slightly decreased L Sodium Cancelled Potassium Cancelled Chloride Cancelled Carbon Dioxide Cancelled Anion Gap Cancelled BUN Cancelled Creatinine Cancelled Est GFR ( Amer) Cancelled Est GFR (Non-Af Amer) Cancelled POC Glucose (mg/dL) 192 H Random Glucose Cancelled Calcium Cancelled Magnesium Cancelled Total Bilirubin Cancelled AST Cancelled ALT Cancelled Alkaline Phosphatase Cancelled Total Creatine Kinase Cancelled Total Protein Cancelled Albumin Cancelled Globulin Cancelled Albumin/Globulin Ratio Cancelled 01/02/17 21:49 WBC RBC Hgb Hct MCV MCH MCHC RDW Plt Count MPV Neut % (Auto) Lymph % (Auto) [place] % (Auto) Eos % (Auto) Baso % (Auto) Neut # Lymph # [place] # Eos # Baso # Neutrophils % (Manual) Lymphocytes % (Manual) Monocytes % (Manual) Eosinophils % (Manual) Platelet Estimate Sodium 137 Potassium 4.5 Chloride 94 L Carbon Dioxide 30 Anion Gap 18 BUN 20 H Creatinine 3.8 H Est GFR ( Amer) 16 Est GFR (Non-Af Amer) 13 POC Glucose (mg/dL) Random Glucose 176 H Calcium 10.2 Magnesium 2.0 Total Bilirubin 0.6 AST 22 ALT 24 Alkaline Phosphatase 90 Total Creatine Kinase 70 Total Protein 8.5 H Albumin 4.8 Globulin 3.7 Albumin/Globulin Ratio 1.3 Assessment & Plan - Assessment and Plan (Free Text) Assessment: Chest Pain w/SOB - possible PNA - CTA - No definite CT evidence of PE. Mosaic pattern of lung parenchyma, nonspecific. DDX: Air-trapping, interstitial edema, interstitial pneumonia, interstitial lung disease. Clinical correlation is needed. Probable bibasilar atelectasis. Superimposed pneumonia is not excluded. Heterogeneous thyroid. Follow up as clinically warranted. - Started Rocephin 1 gm IV daily for empiric therapy of possible PNA - Started Azithro 500 mg IV daily for empiric therapy of possible PNA - EKG - NSR @92bpm, normal axis, normal EKG - CXR - Prominent ill-defined bibasilar airspace opacities DM type 1 - Started on Home Insulin regiment - 6 units SC HS; 4 units SC ACTID - Lyrica 50mg PO daily HTN - Started on Home medications - Minoxidil 10 mg PO BID - Clonidine 0.2 mg PO BID - Labetalol 300mg PO BID ESRD on HD - Nephro Consulted Dr. Velazquez - Dialysis schedule is MWF, received full treatment on 01/02/17 Prophylactic Care - Heparin 5,000u SC Q12H - Pepcid 20 mg PO daily Case Discussed with Dr. Dorothea Celaya PGY1 <Arturo Piedra - Last Filed: 01/03/17 19:07> Results - Vital Signs Recent Vital Signs: Last Vital Signs Temp 99.8 F H 01/03/17 15:42 Pulse 104 H 01/03/17 15:42 Resp 20 01/03/17 15:42 BP 115/62 01/03/17 15:42 Pulse Ox 98 01/03/17 15:42 - Labs Result Diagrams: 01/03/17 06:06 01/03/17 06:06 Labs: Laboratory Results - last 24 hr 01/03/17 01/03/17 01/03/17 05:14 06:06 06:06 WBC 18.0 H D RBC 3.72 L Hgb 11.2 Hct 33.7 L MCV 90.4 MCH 30.1 MCHC 33.3 RDW 14.6 H Plt Count 73 L D MPV 11.8 H Neut % (Auto) 91.4 H Lymph % (Auto) 3.2 L [place] % (Auto) 4.9 Eos % (Auto) 0.1 Baso % (Auto) 0.4 Neut # 16.5 H Lymph # 0.6 L [place] # 0.9 H Eos # 0.0 Baso # 0.1 Neutrophils % (Manual) 84 H Band Neutrophils % 10 H Lymphocytes % (Manual) 4 L Monocytes % (Manual) 2 Platelet Estimate Decreased L Hypochromasia (manual) Slight APTT 30 Sodium 140 Potassium 4.9 Chloride 97 L Carbon Dioxide 25 Anion Gap 23 H BUN 27 H Creatinine 4.6 H Est GFR ( Amer) 13 Est GFR (Non-Af Amer) 11 POC Glucose (mg/dL) Random Glucose 150 H Lactic Acid Calcium 9.2 Total Bilirubin 0.8 AST 253 H D ALT 206 H D Alkaline Phosphatase 111 Total Creatine Kinase Total Protein 7.3 Albumin 4.0 Globulin 3.3 Albumin/Globulin Ratio 1.2 Procalcitonin Influenza Typ A,B (EIA) Grp A Beta Strep Ag 01/03/17 01/03/17 01/03/17 11:51 11:51 15:51 WBC RBC Hgb Hct MCV MCH MCHC RDW Plt Count MPV Neut % (Auto) Lymph % (Auto) [place] % (Auto) Eos % (Auto) Baso % (Auto) Neut # Lymph # [place] # Eos # Baso # Neutrophils % (Manual) Band Neutrophils % Lymphocytes % (Manual) Monocytes % (Manual) Platelet Estimate Hypochromasia (manual) APTT Sodium Potassium Chloride Carbon Dioxide Anion Gap BUN Creatinine Est GFR ( Amer) Est GFR (Non-Af Amer) POC Glucose (mg/dL) Random Glucose Lactic Acid 1.1 Calcium Total Bilirubin AST ALT Alkaline Phosphatase Total Creatine Kinase Total Protein Albumin Globulin Albumin/Globulin Ratio Procalcitonin 51.54 H Influenza Typ A,B (EIA) Negative for flu a/b Grp A Beta Strep Ag 01/03/17 01/03/17 01/03/17 15:51 16:22 16:40 WBC RBC Hgb Hct MCV MCH MCHC RDW Plt Count MPV Neut % (Auto) Lymph % (Auto) [place] % (Auto) Eos % (Auto) Baso % (Auto) Neut # Lymph # [place] # Eos # Baso # Neutrophils % (Manual) Band Neutrophils % Lymphocytes % (Manual) Monocytes % (Manual) Platelet Estimate Hypochromasia (manual) APTT Sodium Potassium Chloride Carbon Dioxide Anion Gap BUN Creatinine Est GFR ( Amer) Est GFR (Non-Af Amer) POC Glucose (mg/dL) 121 H Random Glucose Lactic Acid Calcium Total Bilirubin AST ALT Alkaline Phosphatase Total Creatine Kinase 86 Total Protein Albumin Globulin Albumin/Globulin Ratio Procalcitonin Influenza Typ A,B (EIA) Grp A Beta Strep Ag Negative Assessment & Plan - Date & Time Date: 01/03/17 (I have seen and examined the patient. I agree with the findings and plan of care as documented by Dr. Celaya. Patient with chest pain and SOB. Fever in ED. Chest CT negative for PE. Follow up for official read. Azithromycin and Rocephin for now. Renally dose due ESRD. Consult nephro. Oxygen as needed. Check sputum and blood cultures. Monitor for acute changes.) Time: 19:06 Attending/Attestation - Attestation I have personally seen and examined this patient.: Yes I have fully participated in the care of the patient.: Yes I have reviewed all pertinent clinical information: Yes
[2017-01-03] MEDS ORDERED: Azithromycin 500mg/250ML NS 500 MG/250 ML BAG IVPB SCH (03:45)
[2017-01-03] MEDS ORDERED: Sodium Chloride 0.9% 1,000 ML IV SCH ×2 (03:45→09:27)
[2017-01-03] MEDS ORDERED: Sodium Chloride 0.9% 1,000 ML ONE (04:48)
[2017-01-03 06:10] LABS: BASO # 0.1 K/uL (0.0-0.2); BASO % 0.4 % (0.0-2.0); EOS % 0.1 % (0.0-4.0); HEMATOCRIT 33.7 % (34.0-47.0); LYMPH # 0.6 K/uL (1.0-4.3); LYMPH % 3.2 % (20.0-40.0); MEAN CELL VOLUME 90.4 fL (81.0-99.0); MEAN CORPUSCULAR HEMOGLOBIN 30.1 pg (27.0-31.0); MEAN CORPUSCULAR HGB CONC 33.3 g/dL (33.0-37.0); MEAN PLATELET VOLUME 11.8 fL (7.2-11.7); MONO # 0.9 K/uL (0.0-0.8); MONO % 4.9 % (0.0-10.0); PLATELET COUNT 73 K/uL (130-400); RED CELL DISTRIBUTION WIDTH 14.6 % (11.5-14.5)
[2017-01-03 06:25] LABS: POTASSIUM 4.9 mmol/L (3.6-5.2)
[2017-01-03 06:27] LABS: BILIRUBIN,TOTAL 0.8 mg/dL (0.2-1.3)
[2017-01-03 06:28] LABS: ALB/GLOB RATIO 1.2 (1.0-2.1); CALCIUM 9.2 mg/dl (8.6-10.4); TOTAL PROTEIN 7.3 g/dL (6.3-8.3)
[2017-01-03] MEDS ORDERED: [UNRECOGNIZED DRUG - OTHER] SQ SCH (07:30)
[2017-01-03 08:24] LABS: NEUTROPHIL 84 % (50-75); TOTAL CELLS COUNTED 100
[2017-01-03] MEDS: (Novolin R) Insulin Human Regular 100 units/ml vial SC SCH ×4 (08:58→21:16)
[2017-01-03] MEDS: (Novolog) Insulin Aspart, Recombinant 100 u/ml 10 ml vial SC SCH ×3 (08:58→17:25)
[2017-01-03] MEDS ORDERED: Sodium Chloride 0.9% 250 ML IV ONE (09:26)
--- NOTE | 2017-01-03 09:40 | RAD ---
HISTORY: shortness of breath, fever COMPARISON: 09/09/2016 TECHNIQUE: Chest PA and lateral FINDINGS: LUNGS: Prominent ill-defined consolidative changes at both lung bases. PLEURA: No significant pleural effusion identified. No pneumothorax apparent. CARDIOVASCULAR: Normal. OSSEOUS STRUCTURES: No significant abnormalities. VISUALIZED UPPER ABDOMEN: Normal. OTHER FINDINGS: Right axillary stent in place. IMPRESSION: Prominent ill-defined bibasilar airspace opacities.
--- NOTE | 2017-01-03 11:25 | CP.PCM.CON ---
History of Present Illness - History of Present Illness History of Present Illness: 41 year female with PMH of DM type 1, HTN, ESRD on HD (MWF) presents to the ED with muscle spasms, chest pain and palpitations. The chest pain is located at to the right of the sternum and is non radiating. Nothing makes the pain better , nothing makes it worse. The patient reported some SOB earlier but it has since resolved. She is still experiencing some pain in her chest but it is currently a dull pain. She says she feels like her heart is racing and can feel it want to beat out of her chest. She states she is also having back spasms in between her shoulder blades and across her low back. Patient states that all of this started earlier today when she finished her dialysis treatment. She states since being in the ED, her pain and breathing have improved, but she has been experiencing a fever and got lightheaded when she attempted to stand up. The muscle spasms that the patient was reporting on arrival were located in her arms and legs but have since resolved. Denies chills, n/v, d/c, abdominal pain, vision changes or ECHEVERRIA. PMH: DM, HTN, ESRD on HD (MWF) PSH; RLE AVF, RLE clot thrombolysis, cataract surgery Social: Denies ETOH, tobacco, or illicit drug use PMD: Denies currently having one d/t insurance Nephro: [facility]: [facility] (on [address]) Has recurrent CHF episodes. Now febrile. Cannot R/O CHF vs pneumonia Review of Systems - Constitutional Constitutional: Fatigue, Fever, Weakness - EENT Eyes: absent: As Per HPI, Blind Spots, Blurred Vision, Change in Vision, Decreased Night Vision, Diplopia, Discharge, Dry Eye, Exophthalmos, Floaters, Irritation, Itchy Eyes, Loss of Peripheral Vision, Pain, Photophobia, Requires Corrective Lenses, Sees Flashes, Spots in Vision, Tunnel Vision, Other Visual Disturbances, Loss of Vision, Other Ears: absent: As Per HPI, Decreased Hearing, Ear Discharge, Ear Pain, Tinnitus, Abnormal Hearing, Disequilibrium, Dizziness, Other Nose/Mouth/Throat: absent: As Per HPI, Epistaxis, Nasal Congestion, Nasal Discharge, Nasal Obstruction, Nasal Trauma, Nose Pain, Post Nasal Drip, Sinus Pain, Sinus Pressure, Bleeding Gums, Change in Voice, Dental Pain, Dry Mouth, Dysphagia, Halitosis, Hoarsness, Lip Swelling, Mouth Lesions, Mouth Pain, Odynophagia, Sore Throat, Throat Swelling, Tongue Swelling, Facial Pain, Neck Pain, Neck Mass, Other - Cardiovascular Cardiovascular: Dyspnea on Exertion, Orthopnea - Respiratory Respiratory: Cough, Dyspnea on Exertion - Gastrointestinal Gastrointestinal: absent: As Per HPI, Abdominal Pain, Belching, Bloating, Change in Bowel Habits, Change in Stool Character, Coffee Ground Emesis, Constipation, Cramping, Diarrhea, Dyspepsia, Dysphagia, Early Satiety, Excessive Flatus, Fecal Incontinence, Heartburn, Hematemesis, Hematochezia, Loose Stools, Melena, Nausea, Odynophagia, Temesmus, Vomiting, Other - Genitourinary Genitourinary: As Per HPI - Musculoskeletal Musculoskeletal: Muscle Weakness, Numbness - Integumentary Integumentary: Dry Skin - Neurological Neurological: Headaches, Weakness Past Patient History - Infectious Disease Hx of Infectious Diseases: None - Past Medical History & Family History Past Medical History?: Yes Past Family History: Reviewed and not pertinent - Past Social History Smoking Status: Never Smoked Chewing Tobacco Use: No Cigar Use: No Alcohol: None Home Situation {Lives}: Alone - CARDIAC Hx Hypertension: Yes - PULMONARY Hx Pneumonia: Yes - NEUROLOGICAL Hx Seizures: Yes (2008) - HEENT Hx HEENT Problems: Yes Hx Cataracts: Yes (HAD CUATE CATARACT SURGERY) - RENAL Hx Chronic Kidney Disease: Yes - ENDOCRINE/METABOLIC Hx Endocrine Disorders: Yes Hx Diabetes Mellitus Type 1: Yes - HEMATOLOGICAL/ONCOLOGICAL Hx Anemia: Yes - INTEGUMENTARY Hx Dermatological Problems: No - MUSCULOSKELETAL/RHEUMATOLOGICAL Hx Fractures: Yes (RT ANKLE) - GASTROINTESTINAL Hx Gastrointestinal Disorders: Yes Hx Ulcer: Yes - GENITOURINARY/GYNECOLOGICAL Hx Genitourinary Disorders: No - PSYCHIATRIC Hx Anxiety: Yes Hx Depression: Yes Hx Substance Use: No - SURGICAL HISTORY Hx Surgeries: Yes Hx Arteriovenous Shunt: Yes (NON FUNC MITZI, NEW SIDNEY) Hx Cataract Extraction: Yes Hx Eye Surgery: Yes (RETINA RT) - ANESTHESIA Hx Anesthesia: Yes Hx Anesthesia Reactions: No Hx Malignant Hyperthermia: No Meds Allergies/Adverse Reactions: Allergies Allergy/AdvReac Type Severity Reaction Status Date / Time No Known Allergies Allergy Verified 01/02/17 18:58 - Medications Medications: Current Medications Cinacalcet (Sensipar) 90 mg PO DAILY [facility] Clonidine HCl (Catapres) 0.2 mg PO BID [facility] Famotidine (Pepcid) 20 mg PO DAILY [facility] Heparin Sodium (Porcine) (Heparin) 5,000 units SC Q12 [facility] Ceftriaxone Sodium 1 gm/ (Sodium Chloride) 100 mls @ 100 mls/hr IVPB DAILY [facility] Gentamicin Sulfate 80 mg/ (Sodium Chloride) 102 mls @ 100 mls/hr IVPB ONCE ONE Stop: 01/03/17 12:01 Last Admin: 01/03/17 10:22 Dose: 100 mls/hr Sodium Chloride (Sodium Chloride 0.9%) 1,000 mls @ 50 mls/hr IV .Q20H [facility] Vancomycin HCl 1 gm/ Sodium (Chloride) 250 mls @ 166.7 mls/hr IVPB ONCE ONE Stop: 01/03/17 12:29 Last Admin: 01/03/17 10:22 Dose: 166.7 mls/hr Insulin Aspart (Novolog) 4 unit SC ACTID [facility] Last Admin: 01/03/17 08:58 Dose: Not Given Insulin Glargine (Lantus) 6 unit SC HS [facility] Insulin Human Regular (Novolin R) 0 unit SC ACHS [facility] PRN Reason: Protocol Last Admin: 01/03/17 08:58 Dose: Not Given Labetalol HCl (Normodyne) 300 mg PO BID [facility] Minoxidil (Loniten) 10 mg PO BID [facility] Pregabalin (Lyrica) 50 mg PO DAILY [facility] Sevelamer Carbonate (Renvela) 2,400 mg PO TID [facility] Physical Exam - Constitutional Appears: No Acute Distress, Chronically Ill - Head Exam Head Exam: ATRAUMATIC, NORMAL INSPECTION - Eye Exam Eye Exam: EOMI, Normal appearance - Neck Exam Neck exam: Positive for: Normal Inspection. Negative for: Tenderness - Respiratory Exam Respiratory Exam: Rhonchi, Respiratory Distress - Cardiovascular Exam Cardiovascular Exam: REGULAR RHYTHM, +S1 - GI/Abdominal Exam GI & Abdominal Exam: Soft. absent: Tenderness - Extremities Exam Extremities exam: Positive for: normal inspection, tenderness - Neurological Exam Neurological exam: Alert, CN II-XII Intact - Skin Skin Exam: Dry, Warm Results - Vital Signs Recent Vital Signs: Last Vital Signs Temp 98.3 F 01/03/17 08:00 Pulse 102 H 01/03/17 11:17 Resp 18 01/03/17 08:00 BP 152/72 H 01/03/17 11:17 Pulse Ox 98 01/03/17 08:00 - Labs Result Diagrams: 01/03/17 06:06 01/03/17 06:06 Labs: Laboratory Results - last 24 hr 01/03/17 01/03/17 01/03/17 05:14 06:06 06:06 WBC 18.0 H D RBC 3.72 L Hgb 11.2 Hct 33.7 L MCV 90.4 MCH 30.1 MCHC 33.3 RDW 14.6 H Plt Count 73 L D MPV 11.8 H Neut % (Auto) 91.4 H Lymph % (Auto) 3.2 L Delta % (Auto) 4.9 Eos % (Auto) 0.1 Baso % (Auto) 0.4 Neut # 16.5 H Lymph # 0.6 L Delta # 0.9 H Eos # 0.0 Baso # 0.1 Neutrophils % (Manual) 84 H Band Neutrophils % 10 H Lymphocytes % (Manual) 4 L Monocytes % (Manual) 2 Platelet Estimate Decreased L Hypochromasia (manual) Slight APTT 30 Sodium 140 Potassium 4.9 Chloride 97 L Carbon Dioxide 25 Anion Gap 23 H BUN 27 H Creatinine 4.6 H Est GFR ( Amer) 13 Est GFR (Non-Af Amer) 11 Random Glucose 150 H Calcium 9.2 Total Bilirubin 0.8 AST 253 H D ALT 206 H D Alkaline Phosphatase 111 Total Protein 7.3 Albumin 4.0 Globulin 3.3 Albumin/Globulin Ratio 1.2 Assessment & Plan (1) Hypertensive chronic kidney disease with stage 5 chronic kidney disease or end stage renal disease Status: Acute (2) Heart failure, unspecified Status: Acute (3) ESRD (end stage renal disease) on dialysis Status: Acute - Assessment and Plan (Free Text) Plan: will schdule dialysis for extra fluid removal cover with IV ABs for possible pneumonia
[2017-01-03] MEDS: Labetalol Hydrochloride 300 mg Tab PO SCH ×2 (11:41→18:12)
--- NOTE | 2017-01-03 12:30 | CARD ---
APPROVED REPORT EKG Measurement Heart [id number] <Conclusion> Normal sinus rhythm Normal ECG
--- NOTE | 2017-01-03 14:02 | CP.PCM.CON ---
History of Present Illness - History of Present Illness History of Present Illness: dictated Past Patient History - Infectious Disease Hx of Infectious Diseases: None - Past Medical History & Family History Past Medical History?: Yes Past Family History: Reviewed and not pertinent - Past Social History Smoking Status: Never Smoked Chewing Tobacco Use: No Cigar Use: No Alcohol: None Home Situation {Lives}: Alone - CARDIAC Hx Hypertension: Yes - PULMONARY Hx Pneumonia: Yes - NEUROLOGICAL Hx Seizures: Yes (2008) - HEENT Hx HEENT Problems: Yes Hx Cataracts: Yes (HAD CUATE CATARACT SURGERY) - RENAL Hx Chronic Kidney Disease: Yes - ENDOCRINE/METABOLIC Hx Endocrine Disorders: Yes Hx Diabetes Mellitus Type 1: Yes - HEMATOLOGICAL/ONCOLOGICAL Hx Anemia: Yes - INTEGUMENTARY Hx Dermatological Problems: No - MUSCULOSKELETAL/RHEUMATOLOGICAL Hx Falls: No - GASTROINTESTINAL Hx Gastrointestinal Disorders: Yes Hx Ulcer: Yes - GENITOURINARY/GYNECOLOGICAL Hx Genitourinary Disorders: No - PSYCHIATRIC Hx Anxiety: Yes Hx Depression: Yes Hx Substance Use: No - SURGICAL HISTORY Hx Surgeries: Yes Hx Arteriovenous Shunt: Yes (NON FUNC MITZI, NEW SIDNEY) Hx Cataract Extraction: Yes Hx Eye Surgery: Yes (RETINA RT) - ANESTHESIA Hx Anesthesia: Yes Hx Anesthesia Reactions: No Hx Malignant Hyperthermia: No Meds Allergies/Adverse Reactions: Allergies Allergy/AdvReac Type Severity Reaction Status Date / Time No Known Allergies Allergy Verified 01/02/17 18:58 - Medications Medications: Current Medications Cinacalcet (Sensipar) 90 mg PO DAILY [facility] Last Admin: 01/03/17 11:50 Dose: 90 mg Clonidine HCl (Catapres) 0.2 mg PO BID [facility] Last Admin: 01/03/17 11:37 Dose: Not Given Famotidine (Pepcid) 20 mg PO DAILY [facility] Last Admin: 01/03/17 11:54 Dose: 20 mg Heparin Sodium (Porcine) (Heparin) 5,000 units SC Q12 [facility] Last Admin: 01/03/17 11:36 Dose: Not Given Ceftriaxone Sodium 1 gm/ (Sodium Chloride) 100 mls @ 100 mls/hr IVPB DAILY [facility] Vancomycin HCl 500 mg/ Sodium (Chloride) 100 mls @ 100 mls/hr IVPB MWF [facility] Insulin Aspart (Novolog) 4 unit SC ACTID [facility] Last Admin: 01/03/17 08:58 Dose: Not Given Insulin Glargine (Lantus) 6 unit SC HS [facility] Insulin Human Regular (Novolin R) 0 unit SC ACHS [facility] PRN Reason: Protocol Last Admin: 01/03/17 08:58 Dose: Not Given Labetalol HCl (Normodyne) 300 mg PO BID [facility] Last Admin: 01/03/17 11:41 Dose: Not Given Minoxidil (Loniten) 10 mg PO BID [facility] Last Admin: 01/03/17 11:50 Dose: 10 mg Morphine Sulfate (Morphine) 1 mg IVP Q4 PRN PRN Reason: Pain, severe (8-10) Pregabalin (Lyrica) 50 mg PO DAILY [facility] Last Admin: 01/03/17 11:53 Dose: 50 mg Sevelamer Carbonate (Renvela) 2,400 mg PO TID [facility] Last Admin: 01/03/17 11:53 Dose: 2,400 mg Results - Vital Signs Recent Vital Signs: Last Vital Signs Temp 98.3 F 01/03/17 08:00 Pulse 102 H 01/03/17 11:17 Resp 18 01/03/17 08:00 BP 152/72 H 01/03/17 11:17 Pulse Ox 98 01/03/17 08:00 - Labs Result Diagrams: 01/03/17 06:06 01/03/17 06:06 Labs: Laboratory Results - last 24 hr 01/03/17 01/03/17 01/03/17 05:14 06:06 06:06 WBC 18.0 H D RBC 3.72 L Hgb 11.2 Hct 33.7 L MCV 90.4 MCH 30.1 MCHC 33.3 RDW 14.6 H Plt Count 73 L D MPV 11.8 H Neut % (Auto) 91.4 H Lymph % (Auto) 3.2 L [place] % (Auto) 4.9 Eos % (Auto) 0.1 Baso % (Auto) 0.4 Neut # 16.5 H Lymph # 0.6 L [place] # 0.9 H Eos # 0.0 Baso # 0.1 Neutrophils % (Manual) 84 H Band Neutrophils % 10 H Lymphocytes % (Manual) 4 L Monocytes % (Manual) 2 Platelet Estimate Decreased L Hypochromasia (manual) Slight APTT 30 Sodium 140 Potassium 4.9 Chloride 97 L Carbon Dioxide 25 Anion Gap 23 H BUN 27 H Creatinine 4.6 H Est GFR ( Amer) 13 Est GFR (Non-Af Amer) 11 Random Glucose 150 H Lactic Acid Calcium 9.2 Total Bilirubin 0.8 AST 253 H D ALT 206 H D Alkaline Phosphatase 111 Total Protein 7.3 Albumin 4.0 Globulin 3.3 Albumin/Globulin Ratio 1.2 Procalcitonin 01/03/17 01/03/17 11:51 11:51 WBC RBC Hgb Hct MCV MCH MCHC RDW Plt Count MPV Neut % (Auto) Lymph % (Auto) [place] % (Auto) Eos % (Auto) Baso % (Auto) Neut # Lymph # [place] # Eos # Baso # Neutrophils % (Manual) Band Neutrophils % Lymphocytes % (Manual) Monocytes % (Manual) Platelet Estimate Hypochromasia (manual) APTT Sodium Potassium Chloride Carbon Dioxide Anion Gap BUN Creatinine Est GFR ( Amer) Est GFR (Non-Af Amer) Random Glucose Lactic Acid 1.1 Calcium Total Bilirubin AST ALT Alkaline Phosphatase Total Protein Albumin Globulin Albumin/Globulin Ratio Procalcitonin 51.54 H
--- NOTE | 2017-01-03 16:48 | CP.PCM.PN ---
<Hemalatha Bean - Last Filed: 01/03/17 16:40> Subjective - Date & Time of Evaluation Date of Evaluation: 01/03/17 Time of Evaluation: 16:40 - Subjective Subjective: Patient was seen and examined at bed side. Patient was uncomfortable in bed having a lot of body aches particularly in the legs and low back. Patient also admits to fatigue. Patient complains of CP/SOB/F/C/N/Constipation. Patient says constipation is not abnormal for her. Last BM was yesterday morning. Denies ECHEVERRIA/ v/d/AP. Patient requested to have the stitches removed that was inserted by her dialysis access center two days ago. Objective - Vital Signs/Intake and Output Vital Signs (last 24 hours): Temp Pulse Resp BP Pulse Ox 99.8 F H 104 H 20 115/62 98 01/03/17 15:42 01/03/17 15:42 01/03/17 15:42 01/03/17 15:42 01/03/17 15:42 - Medications Medications: Current Medications Cinacalcet (Sensipar) 90 mg PO DAILY [facility] Last Admin: 01/03/17 11:50 Dose: 90 mg Clonidine HCl (Catapres) 0.2 mg PO BID [facility] Last Admin: 01/03/17 11:37 Dose: Not Given Famotidine (Pepcid) 20 mg PO DAILY [facility] Last Admin: 01/03/17 11:54 Dose: 20 mg Heparin Sodium (Porcine) (Heparin) 5,000 units SC Q12 [facility] Last Admin: 01/03/17 11:36 Dose: Not Given Ceftriaxone Sodium 1 gm/ (Sodium Chloride) 100 mls @ 100 mls/hr IVPB DAILY [facility] Last Admin: 01/03/17 10:00 Dose: Not Given Vancomycin HCl 500 mg/ Sodium (Chloride) 100 mls @ 100 mls/hr IVPB MWF [facility] Insulin Aspart (Novolog) 4 unit SC ACTID [facility] Last Admin: 01/03/17 12:30 Dose: Not Given Insulin Glargine (Lantus) 6 unit SC HS [facility] Insulin Human Regular (Novolin R) 0 unit SC ACHS [facility] PRN Reason: Protocol Last Admin: 01/03/17 12:30 Dose: Not Given Labetalol HCl (Normodyne) 300 mg PO BID [facility] Last Admin: 01/03/17 11:41 Dose: Not Given Minoxidil (Loniten) 10 mg PO BID [facility] Last Admin: 01/03/17 11:50 Dose: 10 mg Morphine Sulfate (Morphine) 1 mg IVP Q4 PRN PRN Reason: Pain, severe (8-10) Ondansetron HCl (Zofran Inj) 4 mg IVP Q8 PRN PRN Reason: Nausea/Vomiting Pregabalin (Lyrica) 50 mg PO DAILY [facility] Last Admin: 01/03/17 11:53 Dose: 50 mg Sevelamer Carbonate (Renvela) 2,400 mg PO TID [facility] Last Admin: 01/03/17 14:41 Dose: 2,400 mg - Labs Labs: 01/03/17 06:06 01/03/17 06:06 APTT 30 SECONDS (21-34) 01/03/17 05:14 - Constitutional Appears: In Acute Distress - Head Exam Head Exam: ATRAUMATIC, NORMAL INSPECTION, NORMOCEPHALIC - Eye Exam Eye Exam: EOMI - ENT Exam ENT Exam: Mucous Membranes Moist - Respiratory Exam Respiratory Exam: Rhonchi, NORMAL BREATHING PATTERN - Cardiovascular Exam Cardiovascular Exam: REGULAR RHYTHM, +S1, +S2, Murmur ([place]) - GI/Abdominal Exam GI & Abdominal Exam: Soft, Normal Bowel Sounds. absent: Tenderness Additional comments: Swollen area in LLQ where patient injects her insulin. No erythema, induration, or fluctuance. - Extremities Exam Extremities Exam: absent: Pedal Edema, Tenderness Additional comments: swelling at AV fistular site of right arm - Back Exam Back Exam: tenderness - Neurological Exam Neurological Exam: Alert, Awake - Psychiatric Exam Psychiatric exam: Normal Affect, Normal Mood - Skin Skin Exam: Dry, Intact, Warm Assessment and Plan - Assessment and Plan (Free Text) Assessment: Chest Pain w/SOB - possible PNA - CTA - No definite CT evidence of PE. Mosaic pattern of lung parenchyma, nonspecific. DDX: Air-trapping, interstitial edema, interstitial pneumonia, interstitial lung disease. Clinical correlation is needed. Probable bibasilar atelectasis. Superimposed pneumonia is not excluded. Heterogeneous thyroid. Follow up as clinically warranted. - Procal: 51.54; followed up with lactic acid (1.1) sepsis was considered but ruled out based on this finding - total CK: 86 - Rocephin 1 gm IV daily - Vancomycin 500 mg MWF (started by Dr. Tesfaye) - EKG - NSR @92bpm, normal axis, normal EKG F/u Repeat EKG (01/03) - CXR - Prominent ill-defined bibasilar airspace opacities LE Pain - F/U arterial and venous duplex DM type 1 - Started on Home Insulin regiment - 6 units SC HS; 4 units SC ACTID - Lyrica 50mg PO daily HTN - Started on Home medications - Minoxidil 10 mg PO BID - Clonidine 0.2 mg PO BID - Labetalol 300mg PO BID ESRD on HD - Nephro Consulted Dr. Velazquez - Dialysis schedule is [facility], received full treatment on 01/02/17 - F/U with Patient about where AV fistula was done to find out when sutures can be removed Prophylactic Care - Heparin 5,000u SC Q12H - Pepcid 20 mg PO daily - Zofran 4 mg Q8 PRN <Debbi Campos V - Last Filed: 01/04/17 07:54> Objective - Vital Signs/Intake and Output Vital Signs (last 24 hours): Temp Pulse Resp BP Pulse Ox 98.5 F 88 20 93/49 L 100 01/04/17 00:00 01/04/17 01:00 01/04/17 00:00 01/04/17 00:00 01/04/17 00:00 - Medications Medications: Current Medications Cinacalcet (Sensipar) 90 mg PO DAILY [facility] Last Admin: 01/03/17 11:50 Dose: 90 mg Clonidine HCl (Catapres) 0.2 mg PO BID [facility] Last Admin: 01/03/17 18:08 Dose: 0.2 mg Famotidine (Pepcid) 20 mg PO DAILY [facility] Last Admin: 01/03/17 11:54 Dose: 20 mg Heparin Sodium (Porcine) (Heparin) 5,000 units SC Q12 [facility] Last Admin: 01/03/17 21:54 Dose: 5,000 units Ceftriaxone Sodium 1 gm/ (Sodium Chloride) 100 mls @ 100 mls/hr IVPB DAILY [facility] Last Admin: 01/03/17 10:00 Dose: Not Given Vancomycin HCl 500 mg/ Sodium (Chloride) 100 mls @ 100 mls/hr IVPB [facility] Insulin Aspart (Novolog) 4 unit SC ACTID [facility] Last Admin: 01/03/17 17:25 Dose: Not Given Insulin Glargine (Lantus) 6 unit SC HS [facility] Last Admin: 01/03/17 21:55 Dose: 6 units Insulin Human Regular (Novolin R) 0 unit SC ACHS [facility] PRN Reason: Protocol Last Admin: 01/04/17 07:24 Dose: Not Given Labetalol HCl (Normodyne) 300 mg PO BID [facility] Last Admin: 01/03/17 18:12 Dose: Not Given Minoxidil (Loniten) 10 mg PO BID [facility] Last Admin: 01/03/17 18:08 Dose: 10 mg Morphine Sulfate (Morphine) 1 mg IVP Q4 PRN PRN Reason: Pain, severe (8-10) Last Admin: 01/03/17 21:54 Dose: 1 mg Ondansetron HCl (Zofran Inj) 4 mg IVP Q8 PRN PRN Reason: Nausea/Vomiting Pregabalin (Lyrica) 50 mg PO DAILY [facility] Last Admin: 01/03/17 11:53 Dose: 50 mg Sevelamer Carbonate (Renvela) 2,400 mg PO TID [facility] Last Admin: 01/03/17 18:08 Dose: 2,400 mg - Labs Labs: 01/04/17 07:23 01/03/17 06:06 APTT 30 SECONDS (21-34) 01/03/17 05:14 Attending/Attestation - Attestation I have personally seen and examined this patient.: Yes I have fully participated in the care of the patient.: Yes I have reviewed all pertinent clinical information, including history, physical exam and plan: Yes Notes (Text): This is late computer entry for 01/03/17. Patient seen, examined, and case discussed with day-time resident during morning rounds. Patient seen in the morning, reporting she completed her dialysis but reports body aches and pains. Denies recent travel, denies URI symptoms, denies GI symptoms. Patient has had dialysis access site "fixed" and has sutures which reports they need to come out. Will attempt to follow-up to see if that is the case. Spoke with Dr. Velazquez (nephrology), patient was initially send to the ED for hyperkalemia and found to have other problems including fever. Infectious disease (Dr. Tesfaye) consulted for pneumonia in renal dialysis patient. Discontinue Azithromycin in light of elevated LFTs. Discontinue Heparin in light of thrombocytopenia Assessment Plan 1) Sepsis Pneumonia * Criteria: febrile, leukocytosis; secondary to pneumonia; Lactate acid: 1.1--> code sepsis not called in light of normal lactate * Patient given NS 250 cc bolus this morning in light of renal dialysis * CXR - Prominent ill-defined bibasilar airspace opacities * CTA - No definite CT evidence of PE. Mosaic pattern of lung parenchyma, nonspecific. DDX: Air-trapping, interstitial edema, interstitial pneumonia, interstitial lung disease. Clinical correlation is needed. Probable bibasilar atelectasis. Superimposed pneumonia is not excluded. Heterogeneous thyroid. Follow up as clinically warranted * Infectious Disease (Dr. Tesfaye) on the case-->help appreciated * Nephrology (Dr. Velazquez) on the case-->help appreciated * F/U blood cultures * Procalcitonin: 51.54 * IV Abx: * Gentamcin IV * Vancomycin 500mg IV MWF * If patient spikes fever again, will repeat cultures 2) LE Pain * ordered for arterial and venous duplex low suspicion for DVT/arterial problems 3) Uncontrolled diabetes * Started on Home Insulin regiment Lantus 6 units SC HS; 4 units SC ACTID * Lyrica 50mg PO daily * Check [id number] 4) Hypertension * Minoxidil 10 mg PO BID * Clonidine 0.2 mg PO BID * Labetalol 300mg PO BID * ESRD on dialysis * monitor vital signs 5) ESRD on HD * Nephrology (Dr. Velazquez) on board-->help appreciated * Dialysis schedule is [facility], received full treatment on 01/02/17; Patient was scheduled for additional dialysis today but patient refused * F/U with Patient about where AV fistula was done to find out when sutures can be removed 7) Prophylactic Care * Chemical anticoagulation contraindicated secondary to thrombocytopenia * Pepcid 20 mg PO daily for GI ppx * Zofran 4 mg Q8 PRN nausea
[2017-01-03] MEDS: (Lantus) Insulin Glargine, Recombinant SC SCH (21:55)
--- NOTE | 2017-01-04 01:51 | CON ---
DATE: INFECTIOUS DISEASE CONSULTATION REQUESTING PHYSICIAN:Dr Campos HISTORY OF PRESENT ILLNESS: This patient is a 41-year-old female. She has a history of insulin-dependent diabetes, hypertension, and end-stage renal disease. She is on dialysis Saturday, Saturday, and Saturday. She states she started to have body aches and muscle aches all over since yesterday and came with chest pain. She says it hurts when she takes a deep breath and she felt her heart racing and she had experienced some lightheadedness and says she was feeling as if she would pass out. Denies any abdominal pain. No nausea. No vomiting. She is anuric. She does not make any urine. Her dialysis was yesterday. She has a fistula in the right arm, which appears little swollen, but has no redness and no swelling. She says it was cleaned yesterday. PAST MEDICAL HISTORY: Significant for diabetes, hypertension, and end-stage renal disease. She also gives history of having a clot in the right leg, had a surgery, thrombectomy for it and had an AV fistula and has had cataract surgery. She goes for dialysis. Other than that, she has had recurrent CHF and at this time she is complaining of fever, fatigue, body aches, shortness of breath, cough, pain on deep inspiration, and muscle wasting. She has generalized pain. Other past medical history is as in the chart, is reviewed, and is copied. SOCIAL HISTORY: She denies any smoking, drinking, or any drug abuse. PHYSICAL EXAMINATION: VITAL SIGNS: T-max is 98.3, pulse 91, blood pressure is 94/54, and respirations are 18. HEENT: Head is atraumatic, normocephalic. Pupils are reacting to light. Tongue is dry. NECK: Supple. JVP is flat. LUNGS: Clear. Some coarse breath sounds on both bases mostly on the right. HEART: S1 and S2 is regular. ABDOMEN: Soft and nontender. No guarding and no rigidity present. EXTREMITIES: Have no edema. LABORATORY DATA: Labs are noted. Labs show white count is 18 today, hemoglobin 11.2, hematocrit 33.7, and platelet count is 73 is low. Her LFTs are elevated today, so she is septic and she has bandemia, today bands are 10. She also had a CT chest was done yesterday, which showed possible pneumonia and/or could be no definite PE, mosaic pattern, air trapping, interstitial edema, interstitial pneumonia, so at this time, we will cover her. She was given vancomycin and gentamicin now and we will continue with vancomycin and Rocephin and also gentamicin until we are sure that she is stable. Blood cultures were done I am told, but I do not see blood cultures were received, only one set was received. She also has a throat swab, sputum was then collected. We will follow, so she is on vancomycin and Rocephin at this time and gentamicin one dose was given today. We will repeat the labs tomorrow and we will follow. Twyla Tesfaye MD MTDShe
[2017-01-04] MEDS: (Novolin R) Insulin Human Regular 100 units/ml vial SC SCH ×4 (07:24→22:37)
[2017-01-04 07:37] LABS: BASO # 0.1 K/uL (0.0-0.2); BASO % 0.7 % (0.0-2.0); EOS # 0.1 K/uL (0.0-0.7); EOS % 1.1 % (0.0-4.0); LYMPH # 1.2 K/uL (1.0-4.3); LYMPH % 11.8 % (20.0-40.0); MEAN CELL VOLUME 91.9 fL (81.0-99.0); MEAN CORPUSCULAR HEMOGLOBIN 30.8 pg (27.0-31.0); MEAN CORPUSCULAR HGB CONC 33.5 g/dL (33.0-37.0); MEAN PLATELET VOLUME 12.7 fL (7.2-11.7); MONO # 0.7 K/uL (0.0-0.8); NRBC % 0.1 % (0.0-2.0); RED CELL DISTRIBUTION WIDTH 14.6 % (11.5-14.5); WHITE BLOOD COUNT 10.5 K/uL (4.8-10.8)
[2017-01-04 08:04] LABS: POTASSIUM 5.8 mmol/L (3.6-5.2)
[2017-01-04 08:05] LABS: ALB/GLOB RATIO 1.2 (1.0-2.1); BILIRUBIN,TOTAL 0.7 mg/dL (0.2-1.3)
[2017-01-04 08:06] LABS: CALCIUM 8.6 mg/dl (8.6-10.4)
[2017-01-04] MEDS: (Novolog) Insulin Aspart, Recombinant 100 u/ml 10 ml vial SC SCH ×3 (08:46→17:34)
[2017-01-04] MEDS: Labetalol Hydrochloride 300 mg Tab PO SCH ×2 (10:30→17:34)
--- NOTE | 2017-01-04 14:47 | CP.PCM.PN ---
Subjective - Date & Time of Evaluation Date of Evaluation: 01/04/17 Time of Evaluation: 14:44 - Subjective Subjective: s/p dialysis now- UF 2200ml on IV ABs for pneumonia refused extra dialysis 01/03 afebrile now no new complaint Objective - Vital Signs/Intake and Output Vital Signs (last 24 hours): Temp Pulse Resp BP Pulse Ox 98 F 90 18 90/46 L 99 01/04/17 13:40 01/04/17 13:40 01/04/17 13:40 01/04/17 13:40 01/04/17 10:38 - Medications Medications: Current Medications Cinacalcet (Sensipar) 90 mg PO DAILY [facility] Last Admin: 01/04/17 14:23 Dose: 90 mg Clonidine HCl (Catapres) 0.2 mg PO BID [facility] Last Admin: 01/04/17 12:53 Dose: Not Given Famotidine (Pepcid) 20 mg PO DAILY [facility] Last Admin: 01/04/17 14:23 Dose: 20 mg Ceftriaxone Sodium 1 gm/ (Sodium Chloride) 100 mls @ 100 mls/hr IVPB DAILY [facility] Last Admin: 01/03/17 10:00 Dose: Not Given Vancomycin HCl 500 mg/ Sodium (Chloride) 100 mls @ 100 mls/hr IVPB MWF [facility] Last Admin: 01/04/17 08:46 Dose: 100 mls/hr Insulin Aspart (Novolog) 4 unit SC ACTID [facility] Last Admin: 01/04/17 11:53 Dose: Not Given Insulin Glargine (Lantus) 6 unit SC HS [facility] Last Admin: 01/03/17 21:55 Dose: 6 units Insulin Human Regular (Novolin R) 0 unit SC ACHS [facility] PRN Reason: Protocol Last Admin: 01/04/17 11:53 Dose: Not Given Labetalol HCl (Normodyne) 300 mg PO BID [facility] Last Admin: 01/04/17 10:30 Dose: Not Given Minoxidil (Loniten) 10 mg PO BID [facility] Last Admin: 01/04/17 10:30 Dose: Not Given Morphine Sulfate (Morphine) 1 mg IVP Q4 PRN PRN Reason: Pain, severe (8-10) Last Admin: 01/04/17 14:32 Dose: 1 mg Ondansetron HCl (Zofran Inj) 4 mg IVP Q8 PRN PRN Reason: Nausea/Vomiting Pregabalin (Lyrica) 50 mg PO DAILY [facility] Last Admin: 01/04/17 14:23 Dose: 50 mg Sevelamer Carbonate (Renvela) 2,400 mg PO TID [facility] Last Admin: 01/04/17 14:23 Dose: 2,400 mg - Labs Labs: 01/04/17 07:23 01/04/17 07:23 APTT 30 SECONDS (21-34) 01/03/17 05:14 - Constitutional Appears: No Acute Distress, Chronically Ill - Head Exam Head Exam: ATRAUMATIC, NORMAL INSPECTION - Eye Exam Eye Exam: EOMI, Normal appearance - Neck Exam Neck Exam: Normal Inspection. absent: Tenderness - Respiratory Exam Respiratory Exam: Clear to Ausculation Bilateral, NORMAL BREATHING PATTERN - Cardiovascular Exam Cardiovascular Exam: REGULAR RHYTHM, +S1 - GI/Abdominal Exam GI & Abdominal Exam: Soft. absent: Tenderness - Extremities Exam Extremities Exam: Normal Inspection. absent: Tenderness - Neurological Exam Neurological Exam: Awake, CN II-XII Intact - Skin Skin Exam: Dry, Warm Assessment and Plan (1) Hypertensive chronic kidney disease with stage 5 chronic kidney disease or end stage renal disease Status: Acute (2) Heart failure, unspecified Status: Acute (3) ESRD (end stage renal disease) on dialysis Status: Acute - Assessment and Plan (Free Text) Plan: IV ABs dialysis MWF with adequate UF
--- NOTE | 2017-01-04 18:00 | CP.PCM.PN ---
Subjective - Date & Time of Evaluation Date of Evaluation: 01/04/17 Time of Evaluation: 04:00 - Subjective Subjective: dictated Objective - Vital Signs/Intake and Output Vital Signs (last 24 hours): Temp Pulse Resp BP Pulse Ox 98.1 F 100 H 20 113/60 95 01/04/17 15:58 01/04/17 15:58 01/04/17 15:58 01/04/17 15:58 01/04/17 15:58 Intake and Output: 01/04/17 01/04/17 06:59 18:59 Intake Total 610 Balance 610 - Medications Medications: Current Medications Cinacalcet (Sensipar) 90 mg PO DAILY [facility] Last Admin: 01/04/17 14:23 Dose: 90 mg Clonidine HCl (Catapres) 0.2 mg PO BID [facility] Last Admin: 01/04/17 17:34 Dose: 0.2 mg Famotidine (Pepcid) 20 mg PO DAILY [facility] Last Admin: 01/04/17 14:23 Dose: 20 mg Ceftriaxone Sodium 1 gm/ (Sodium Chloride) 100 mls @ 100 mls/hr IVPB DAILY [facility] Last Admin: 01/04/17 15:48 Dose: 100 mls/hr Vancomycin HCl 1 gm/ Sodium (Chloride) 250 mls @ 166.7 mls/hr IVPB [facility] [place] Insulin Aspart (Novolog) 4 unit SC ACTID [facility] Last Admin: 01/04/17 17:34 Dose: 4 unit Insulin Glargine (Lantus) 6 unit SC HS [facility] Last Admin: 01/03/17 21:55 Dose: 6 units Insulin Human Regular (Novolin R) 0 unit SC ACHS [facility] PRN Reason: Protocol Last Admin: 01/04/17 17:34 Dose: 1 unit Labetalol HCl (Normodyne) 300 mg PO BID [facility] Last Admin: 01/04/17 17:34 Dose: 300 mg Minoxidil (Loniten) 10 mg PO BID [facility] Last Admin: 01/04/17 17:34 Dose: 10 mg Morphine Sulfate (Morphine) 1 mg IVP Q4 PRN PRN Reason: Pain, severe (8-10) Last Admin: 01/04/17 14:32 Dose: 1 mg Ondansetron HCl (Zofran Inj) 4 mg IVP Q8 PRN PRN Reason: Nausea/Vomiting Pregabalin (Lyrica) 50 mg PO DAILY [facility] Last Admin: 01/04/17 14:23 Dose: 50 mg Sevelamer Carbonate (Renvela) 2,400 mg PO TID [facility] Last Admin: 01/04/17 17:34 Dose: 2,400 mg - Labs Labs: 01/04/17 07:23 01/04/17 07:23 APTT 30 SECONDS (21-34) 01/03/17 05:14
--- NOTE | 2017-01-04 22:10 | PN ---
DATE: SUBJECTIVE: The patient is feeling better, but she says she had a procedure done in her right arm and they have put a stent in on Saturday and she has sutures, which are making her hurt and she wants them to be removed. She also came out positive for 2 sets positive blood cultures. She is not coughing anymore. Denies any shortness of breath. No trouble breathing, and at this time, I think the infection is probably coming from the right arm graft. PHYSICAL EXAMINATION GENERAL: She states she also suffers from numbness in both her upper extremities, which has been present and she says that they were doing some workup in the neck to look for nerve problem. The patient otherwise is awake and alert. VITAL SIGNS: T-Max is 98.1, pulse is 100, blood pressure 113/60, respirations are 20. HEENT: Head is atraumatic, normocephalic. NECK: Supple. LUNGS: Clear. No crackles or rales heard. HEART: S1 and S2, tachycardic. ABDOMEN: Soft and nontender. No guarding. No rigidity present. EXTREMITIES: Have no edema. Right arm has a fistula as they just did the dialysis. Since she has positive blood cultures, I would increase the dose of vancomycin. She received a dose of gentamicin yesterday, but we will put her on gentamicin Saturday, Saturday and Saturday until we find out what is the etiology of her problems. She also had a throat swab, which was negative. She had a chest CT and the chest CT had shown no evidence of CT pulmonary embolism, mosaic pattern, air trapping, interstitial edema, interstitial pneumonia, clinical correlation is needed and superimposed pneumonia not excluded. I am not sure if these are because of pneumonia, but she has no symptoms now, so we will get echocardiogram done and also get a vascular surgeon to look at the site as she does have a stent there. Twyla Tesfaye MD
--- NOTE | 2017-01-04 22:16 | CP.PCM.PN ---
<Hemalatha Bean - Last Filed: 01/04/17 22:06> Subjective - Date & Time of Evaluation Date of Evaluation: 01/04/17 Time of Evaluation: 22:06 - Subjective Subjective: Patient was seen and examined at dialysis. Patient still having a lot of body aches. Patient also admits to fatigue. Denies ECHEVERRIA/v/d/AP. Objective - Vital Signs/Intake and Output Vital Signs (last 24 hours): Temp Pulse Resp BP Pulse Ox 98.1 F 100 H 20 113/60 95 01/04/17 15:58 01/04/17 15:58 01/04/17 15:58 01/04/17 15:58 01/04/17 15:58 Intake and Output: 01/04/17 01/05/17 18:59 06:59 Intake Total 610 Balance 610 - Medications Medications: Current Medications Cinacalcet (Sensipar) 90 mg PO DAILY [facility] Last Admin: 01/04/17 14:23 Dose: 90 mg Clonidine HCl (Catapres) 0.2 mg PO BID [facility] Last Admin: 01/04/17 17:34 Dose: 0.2 mg Famotidine (Pepcid) 20 mg PO DAILY [facility] Last Admin: 01/04/17 14:23 Dose: 20 mg Ceftriaxone Sodium 1 gm/ (Sodium Chloride) 100 mls @ 100 mls/hr IVPB DAILY [facility] Last Admin: 01/04/17 15:48 Dose: 100 mls/hr Vancomycin HCl 1 gm/ Sodium (Chloride) 250 mls @ 166.7 mls/hr IVPB MWF [facility] Insulin Aspart (Novolog) 4 unit SC ACTID [facility] Last Admin: 01/04/17 17:34 Dose: 4 unit Insulin Glargine (Lantus) 6 unit SC HS [facility] Last Admin: 01/03/17 21:55 Dose: 6 units Insulin Human Regular (Novolin R) 0 unit SC ACHS [facility] PRN Reason: Protocol Last Admin: 01/04/17 17:34 Dose: 1 unit Labetalol HCl (Normodyne) 300 mg PO BID [facility] Last Admin: 01/04/17 17:34 Dose: 300 mg Minoxidil (Loniten) 10 mg PO BID [facility] Last Admin: 01/04/17 17:34 Dose: 10 mg Morphine Sulfate (Morphine) 1 mg IVP Q4 PRN PRN Reason: Pain, severe (8-10) Last Admin: 01/04/17 19:42 Dose: 1 mg Ondansetron HCl (Zofran Inj) 4 mg IVP Q8 PRN PRN Reason: Nausea/Vomiting Last Admin: 01/04/17 19:42 Dose: 4 mg Pregabalin (Lyrica) 50 mg PO DAILY [facility] Last Admin: 01/04/17 14:23 Dose: 50 mg Sevelamer Carbonate (Renvela) 2,400 mg PO TID [facility] Last Admin: 01/04/17 17:34 Dose: 2,400 mg - Labs Labs: 01/04/17 07:23 01/04/17 07:23 APTT 30 SECONDS (21-34) 01/03/17 05:14 - Constitutional Appears: Non-toxic, No Acute Distress - Head Exam Head Exam: NORMAL INSPECTION - Eye Exam Eye Exam: EOMI - ENT Exam ENT Exam: Mucous Membranes Moist - Respiratory Exam Respiratory Exam: Clear to Ausculation Bilateral, NORMAL BREATHING PATTERN - Cardiovascular Exam Cardiovascular Exam: REGULAR RHYTHM, +S1, +S2 - Extremities Exam Extremities Exam: Normal Inspection - Neurological Exam Neurological Exam: Alert, Awake - Psychiatric Exam Psychiatric exam: Normal Affect, Normal Mood - Skin Skin Exam: Dry, Intact, Normal Color, Warm Assessment and Plan - Assessment and Plan (Free Text) Assessment: Chest Pain w/SOB - possible PNA - CTA - No definite CT evidence of PE. Mosaic pattern of lung parenchyma, nonspecific. DDX: Air-trapping, interstitial edema, interstitial pneumonia, interstitial lung disease. Clinical correlation is needed. Probable bibasilar atelectasis. Superimposed pneumonia is not excluded. Heterogeneous thyroid. - Procal: 51.54; followed up with lactic acid (1.1) sepsis was considered but ruled out based on this finding - total CK: 86 - Rocephin 1 gm IV daily - Vancomycin 500 mg MWF (started by Dr. Tesfaye) - EKG - NSR @92bpm, normal axis, normal EKG Repeat EKG (01/03) - CXR - Prominent ill-defined bibasilar airspace opacities Thrombocytopenia - Plts 61 (9.15.17) - HIT Ab Elevated transamainases - Monitor LFTs LE Pain - F/U arterial and venous duplex DM type 1 - Started on Home Insulin regiment - 6 units SC HS; 4 units SC ACTID - Lyrica 50mg PO daily HTN - Started on Home medications - Minoxidil 10 mg PO BID - Clonidine 0.2 mg PO BID - Labetalol 300mg PO BID ESRD on HD - Nephro Consulted Dr. Velazquez - Dialysis schedule is [facility], received full treatment on 01/02/17 - F/U with Patient about where AV fistula was done to find out when sutures can be removed Prophylactic Care - Heparin 5,000u SC Q12H - Pepcid 20 mg PO daily - Zofran 4 mg Q8 PRN <Debbi Campos V - Last Filed: 01/05/17 19:06> Objective - Vital Signs/Intake and Output Vital Signs (last 24 hours): Temp Pulse Resp BP Pulse Ox 97.7 F 80 20 124/66 95 01/05/17 07:47 01/05/17 15:00 01/05/17 07:47 01/05/17 15:00 01/05/17 07:47 Intake and Output: 01/05/17 01/05/17 06:59 18:59 Intake Total 680 Balance 680 - Medications Medications: Current Medications Cinacalcet (Sensipar) 90 mg PO DAILY [facility] Last Admin: 01/05/17 11:05 Dose: 90 mg Clonidine HCl (Catapres) 0.2 mg PO BID [facility] Last Admin: 01/05/17 17:38 Dose: 0.2 mg Famotidine (Pepcid) 20 mg PO DAILY [facility] Last Admin: 01/05/17 11:05 Dose: 20 mg Ceftriaxone Sodium 1 gm/ (Sodium Chloride) 100 mls @ 100 mls/hr IVPB DAILY [facility] Last Admin: 01/05/17 11:08 Dose: 100 mls/hr Vancomycin HCl 1 gm/ Sodium (Chloride) 250 mls @ 166.7 mls/hr IVPB [facility] [place] Insulin Aspart (Novolog) 4 unit SC ACTID [facility] Last Admin: 01/05/17 17:24 Dose: 4 unit Insulin Glargine (Lantus) 6 unit SC HS [facility] Last Admin: 01/04/17 22:37 Dose: Not Given Insulin Human Regular (Novolin R) 0 unit SC ACHS [facility] PRN Reason: Protocol Last Admin: 01/05/17 17:20 Dose: Not Given Labetalol HCl (Normodyne) 300 mg PO BID [facility] Last Admin: 01/05/17 17:38 Dose: 300 mg Minoxidil (Loniten) 10 mg PO BID [facility] Last Admin: 01/05/17 17:38 Dose: 10 mg Morphine Sulfate (Morphine) 1 mg IVP Q4 PRN PRN Reason: Pain, severe (8-10) Last Admin: 01/05/17 08:42 Dose: 1 mg Ondansetron HCl (Zofran Inj) 4 mg IVP Q8 PRN PRN Reason: Nausea/Vomiting Last Admin: 01/05/17 15:08 Dose: 4 mg Pregabalin (Lyrica) 50 mg PO DAILY [facility] Last Admin: 01/05/17 11:07 Dose: 50 mg Sevelamer Carbonate (Renvela) 2,400 mg PO TID [facility] Last Admin: 01/05/17 17:38 Dose: 2,400 mg - Labs Labs: 01/05/17 08:03 01/05/17 07:55 APTT 30 SECONDS (21-34) 01/03/17 05:14 Attending/Attestation - Attestation I have personally seen and examined this patient.: Yes I have fully participated in the care of the patient.: Yes I have reviewed all pertinent clinical information, including history, physical exam and plan: Yes Notes (Text): This is late computer 01/04/17. Patient seen, examined, and case discussed with day-time resident during morning rounds. Patient seen during dialysis yesterday. Patient reports she is feeling better. patient is currently on IV antibiotics and has positive blood cultures. Patient is pending echocardiogram in light of positive blood cultures. Discussed with ID, recommend from vascular surgery to view dialysis access site to see if infected or not. Assessment Plan 1) Sepsis Pneumonia * Criteria: febrile, leukocytosis; secondary to pneumonia; Lactate acid: 1.1--> code sepsis not called in light of normal lactate * Patient given NS 250 cc bolus this morning in light of renal dialysis * CXR - Prominent ill-defined bibasilar airspace opacities * CTA - No definite CT evidence of PE. Mosaic pattern of lung parenchyma, nonspecific. DDX: Air-trapping, interstitial edema, interstitial pneumonia, interstitial lung disease. Clinical correlation is needed. Probable bibasilar atelectasis. Superimposed pneumonia is not excluded. Heterogeneous thyroid. Follow up as clinically warranted * Infectious Disease (Dr. Tesfaye) on the case-->help appreciated * Nephrology (Dr. Velazquez) on the case-->help appreciated * Blood Culture (01/02/17): Gram Positive Cocci X2 * Throat Culture (01/03/17): No beta Strep group A isolated * Procalcitonin: 51.54 * IV Abx: * Rocephin 1 gram IV Q daily (active since 01/03/17) * Gentamicin Sulfate 80mg IV (01/03/17) X1 * Vancomycin 1gram IV MWF (active since 01/07/17) * If patient spikes fever again, will repeat cultures 2) LE Pain * ordered for arterial and venous duplex low suspicion for DVT/arterial problems -->pending 3) Uncontrolled diabetes * Started on Home Insulin regiment Lantus 6 units SC HS; 4 units SC ACTID * Lyrica 50mg PO daily * Check [id number] 4) Hypertension * Minoxidil 10 mg PO BID * Clonidine 0.2 mg PO BID * Labetalol 300mg PO BID * ESRD on dialysis * monitor vital signs 5) ESRD on HD * Nephrology (Dr. Velazquez) on board-->help appreciated * Dialysis schedule is [facility], received full treatment on 01/02/17 * F/U with Patient about where AV fistula was done to find out when sutures can be removed 7) Prophylactic Care * Chemical anticoagulation contraindicated secondary to thrombocytopenia * Pepcid 20 mg PO daily for GI ppx * Zofran 4 mg Q8 PRN nausea
[2017-01-04] MEDS: (Lantus) Insulin Glargine, Recombinant SC SCH (22:37)
[2017-01-05] MEDS: (Novolin R) Insulin Human Regular 100 units/ml vial SC SCH ×3 (07:27→17:20)
[2017-01-05 08:09] LABS: BASO % 0.7 % (0.0-2.0); EOS # 0.2 K/uL (0.0-0.7); EOS % 3.7 % (0.0-4.0); HEMATOCRIT 27.4 % (34.0-47.0); LYMPH # 1.1 K/uL (1.0-4.3); LYMPH % 17.6 % (20.0-40.0); MEAN CELL VOLUME 91.4 fL (81.0-99.0); MEAN CORPUSCULAR HEMOGLOBIN 30.8 pg (27.0-31.0); MEAN CORPUSCULAR HGB CONC 33.7 g/dL (33.0-37.0); MEAN PLATELET VOLUME 12.7 fL (7.2-11.7); MONO # 0.7 K/uL (0.0-0.8); MONO % 11.5 % (0.0-10.0); WHITE BLOOD COUNT 6.3 K/uL (4.8-10.8)
[2017-01-05] MEDS: (Novolog) Insulin Aspart, Recombinant 100 u/ml 10 ml vial SC SCH ×4 (08:24→17:24)
[2017-01-05 08:26] LABS: POTASSIUM 4.5 mmol/L (3.6-5.2)
[2017-01-05 08:29] LABS: ALB/GLOB RATIO 1.1 (1.0-2.1); BILIRUBIN,TOTAL 0.7 mg/dL (0.2-1.3); CALCIUM 8.7 mg/dl (8.6-10.4); MAGNESIUM 2.2 mg/dL (1.6-2.3); PHOSPHOROUS 3.3 mg/dL (2.5-4.5); TOTAL PROTEIN 7.3 g/dL (6.3-8.3)
--- NOTE | 2017-01-05 11:05 | CP.PCM.PN ---
Subjective - Date & Time of Evaluation Date of Evaluation: 01/05/17 Time of Evaluation: 11:02 - Subjective Subjective: feels fine no SOB had HD yesterday complaints of tingling in hands ROS- as per HPI, other than that 10 point ROS negative Objective - Vital Signs/Intake and Output Vital Signs (last 24 hours): Temp Pulse Resp BP Pulse Ox 97.7 F 83 20 121/62 95 01/05/17 07:47 01/05/17 07:47 01/05/17 07:47 01/05/17 07:47 01/05/17 07:47 - Medications Medications: Current Medications Cinacalcet (Sensipar) 90 mg PO DAILY [facility] Last Admin: 01/04/17 14:23 Dose: 90 mg Clonidine HCl (Catapres) 0.2 mg PO BID [facility] Last Admin: 01/04/17 17:34 Dose: 0.2 mg Famotidine (Pepcid) 20 mg PO DAILY [facility] Last Admin: 01/04/17 14:23 Dose: 20 mg Ceftriaxone Sodium 1 gm/ (Sodium Chloride) 100 mls @ 100 mls/hr IVPB DAILY [facility] Last Admin: 01/04/17 15:48 Dose: 100 mls/hr Vancomycin HCl 1 gm/ Sodium (Chloride) 250 mls @ 166.7 mls/hr [facility] Insulin Aspart (Novolog) 4 unit SC ACTID [facility] Last Admin: 01/05/17 08:24 Dose: Not Given Insulin Glargine (Lantus) 6 unit SC HS [facility] Last Admin: 01/04/17 22:37 Dose: Not Given Insulin Human Regular (Novolin R) 0 unit SC ACHS [facility] PRN Reason: Protocol Last Admin: 01/05/17 07:27 Dose: Not Given Labetalol HCl (Normodyne) 300 mg PO BID [facility] Last Admin: 01/04/17 17:34 Dose: 300 mg Minoxidil (Loniten) 10 mg PO BID [facility] Last Admin: 01/04/17 17:34 Dose: 10 mg Morphine Sulfate (Morphine) 1 mg IVP Q4 PRN PRN Reason: Pain, severe (8-10) Last Admin: 01/05/17 08:42 Dose: 1 mg Ondansetron HCl (Zofran Inj) 4 mg IVP Q8 PRN PRN Reason: Nausea/Vomiting Last Admin: 01/04/17 19:42 Dose: 4 mg Pregabalin (Lyrica) 50 mg PO DAILY [facility] Last Admin: 01/04/17 14:23 Dose: 50 mg Sevelamer Carbonate (Renvela) 2,400 mg PO TID [facility] Last Admin: 01/04/17 17:34 Dose: 2,400 mg - Labs Labs: 01/05/17 08:03 01/05/17 07:55 APTT 30 SECONDS (21-34) 01/03/17 05:14 - Constitutional Appears: Well, Non-toxic - Head Exam Head Exam: ATRAUMATIC, NORMOCEPHALIC - Eye Exam Eye Exam: EOMI, PERRL - ENT Exam ENT Exam: Mucous Membranes Moist - Neck Exam Neck Exam: Full ROM. absent: Lymphadenopathy - Respiratory Exam Respiratory Exam: Clear to Ausculation Bilateral. absent: Rhonchi, Wheezes - Cardiovascular Exam Cardiovascular Exam: REGULAR RHYTHM, +S1, +S2 - GI/Abdominal Exam GI & Abdominal Exam: Soft. absent: Tenderness - Extremities Exam Extremities Exam: absent: Pedal Edema - Neurological Exam Neurological Exam: Alert, Awake, Oriented x3 - Psychiatric Exam Psychiatric exam: Normal Affect, Normal Mood - Skin Skin Exam: Dry, Warm Assessment and Plan (1) ESRD (end stage renal disease) on dialysis Status: Acute (2) Fever Status: Acute (3) Chest pain Status: Acute (4) Depression Status: Acute - Assessment and Plan (Free Text) Plan: maintain dialysis MWF next HD saturday on lyrica for neuropathy
--- NOTE | 2017-01-05 13:13 | CP.PCM.CON ---
History of Present Illness - History of Present Illness History of Present Illness: Vascular Surgery Consult note for Dr. Bolanos, covering for Dr. Finley Consulted for: Possible AVF infection Patient is a 41F with PMH of ESRD on HD MWF, HTN, DM with PSH of L arm AV fistula that failed and a subsequent right av fistula that has been stented. Patient states that 4 days ago she went to an "access center" to evaluate her AV fistula and two stents were placed. The next day patient was undergoing dialysis on and upon completion felt chest pain and muscle spasms and overall fatigue and came to the ER. Blood cultures were taken at that time and have grown MSSA. Fistula has been functioning well and patient denies fevers, chills , arm pain, weakness, drainage, or bleeding from the AVF site. Patient states that her systemic symptoms have improved since admit, though she still has weakness and fatigue. PMH: DM, ESRD on HD, HTN, PUD PSH: L AVF, R AVF, R AVF thrombolysis and stenting 06/2016, cataracts All: NKDA Review of Systems - Review of Systems All systems: reviewed and no additional remarkable complaints except - Constitutional Constitutional: Weakness. absent: Chills, Fever - Cardiovascular Cardiovascular: absent: Chest Pain, Chest Pain at Rest, Dyspnea - Respiratory Respiratory: absent: Cough, Dyspnea - Gastrointestinal Gastrointestinal: absent: Abdominal Pain, Nausea, Vomiting - Neurological Neurological: Weakness. absent: Disequilibrium, Dizziness Additional comments: hearing abnormalities - Endocrine Endocrine: Fatigue, Palpitations Past Patient History - Infectious Disease Hx of Infectious Diseases: None - Past Medical History & Family History Past Medical History?: Yes - Past Social History Smoking Status: Never Smoked - CARDIAC Hx Hypertension: Yes - PULMONARY Hx Pneumonia: Yes - NEUROLOGICAL Hx Seizures: Yes (2008) - HEENT Hx HEENT Problems: Yes Hx Cataracts: Yes (HAD CUATE CATARACT SURGERY) - RENAL Hx Chronic Kidney Disease: Yes - ENDOCRINE/METABOLIC Hx Endocrine Disorders: Yes Hx Diabetes Mellitus Type 1: Yes - HEMATOLOGICAL/ONCOLOGICAL Hx Anemia: Yes - INTEGUMENTARY Hx Dermatological Problems: No - MUSCULOSKELETAL/RHEUMATOLOGICAL Hx Falls: No - GASTROINTESTINAL Hx Gastrointestinal Disorders: Yes Hx Ulcer: Yes - GENITOURINARY/GYNECOLOGICAL Hx Genitourinary Disorders: No - PSYCHIATRIC Hx Substance Use: No - SURGICAL HISTORY Hx Surgeries: Yes Hx Arteriovenous Shunt: Yes (NON FUNC MITZI, NEW SIDNEY) Hx Cataract Extraction: Yes Hx Eye Surgery: Yes (RETINA RT) - ANESTHESIA Hx Anesthesia: Yes Hx Anesthesia Reactions: No Hx Malignant Hyperthermia: No Meds Allergies/Adverse Reactions: Allergies Allergy/AdvReac Type Severity Reaction Status Date / Time No Known Allergies Allergy Verified 01/02/17 18:58 - Medications Medications: Current Medications Cinacalcet (Sensipar) 90 mg PO DAILY [facility] Last Admin: 01/05/17 11:05 Dose: 90 mg Clonidine HCl (Catapres) 0.2 mg PO BID [facility] Last Admin: 01/05/17 11:08 Dose: 0.2 mg Famotidine (Pepcid) 20 mg PO DAILY [facility] Last Admin: 01/05/17 11:05 Dose: 20 mg Ceftriaxone Sodium 1 gm/ (Sodium Chloride) 100 mls @ 100 mls/hr IVPB DAILY [facility] Last Admin: 01/05/17 11:08 Dose: 100 mls/hr Vancomycin HCl 1 gm/ Sodium (Chloride) 250 mls @ 166.7 mls/hr IVPB [facility] Insulin Aspart (Novolog) 4 unit SC ACTID [facility] Last Admin: 01/05/17 08:24 Dose: Not Given Insulin Glargine (Lantus) 6 unit SC HS [facility] Last Admin: 01/04/17 22:37 Dose: Not Given Insulin Human Regular (Novolin R) 0 unit SC ACHS [facility] PRN Reason: Protocol Last Admin: 01/05/17 07:27 Dose: Not Given Labetalol HCl (Normodyne) 300 mg PO BID [facility] Last Admin: 01/04/17 17:34 Dose: 300 mg Minoxidil (Loniten) 10 mg PO BID [facility] Last Admin: 01/04/17 17:34 Dose: 10 mg Morphine Sulfate (Morphine) 1 mg IVP Q4 PRN PRN Reason: Pain, severe (8-10) Last Admin: 01/05/17 08:42 Dose: 1 mg Ondansetron HCl (Zofran Inj) 4 mg IVP Q8 PRN PRN Reason: Nausea/Vomiting Last Admin: 01/04/17 19:42 Dose: 4 mg Pregabalin (Lyrica) 50 mg PO DAILY [facility] Last Admin: 01/05/17 11:07 Dose: 50 mg Sevelamer Carbonate (Renvela) 2,400 mg PO TID [facility] Last Admin: 01/05/17 11:05 Dose: 2,400 mg Physical Exam - Constitutional Appears: Non-toxic, No Acute Distress - Head Exam Head Exam: ATRAUMATIC, NORMOCEPHALIC - Eye Exam Eye Exam: Normal appearance. absent: Conjunctival injection, Scleral icterus - ENT Exam ENT Exam: Mucous Membranes Moist, Normal Oropharynx - Respiratory Exam Respiratory Exam: NORMAL BREATHING PATTERN. absent: Accessory Muscle Use, Respiratory Distress - Cardiovascular Exam Cardiovascular Exam: RRR - GI/Abdominal Exam GI & Abdominal Exam: Soft. absent: Distended, Tenderness - Extremities Exam Additional comments: right upper extremity with right AVF with palpable thrill, no erythema, drainage , or active bleeding or tenderness at the fistula site. radial and ulnar pulses palpable, no pallor. strength of hand/finger BL. Two sutures present - Expanded Upper Extremities Exam Right Upper Arm exam: absent: dislocation, erythema Vascular exam: radial pulse (2/4), ulnar pulse (2/4), normal capillary refill. absent: pallor, pulse deficit brachial art, pulse deficit radial art, vascular compromise - Neurological Exam Neurological exam: Alert, Oriented x3 - Psychiatric Exam Psychiatric exam: Normal Affect, Normal Mood - Skin Skin Exam: Dry, Normal Color, Warm Results - Vital Signs Recent Vital Signs: Last Vital Signs Temp 97.7 F 01/05/17 07:47 Pulse 83 01/05/17 07:47 Resp 20 01/05/17 07:47 BP 121/62 01/05/17 07:47 Pulse Ox 95 01/05/17 07:47 - Labs Result Diagrams: 01/05/17 08:03 01/05/17 07:55 Labs: Laboratory Results - last 24 hr 01/04/17 01/04/17 01/04/17 16:12 19:35 20:02 WBC RBC Hgb Hct MCV MCH MCHC RDW Plt Count MPV Neut % (Auto) Lymph % (Auto) [place] % (Auto) Eos % (Auto) Baso % (Auto) Neut # Lymph # [place] # Eos # Baso # Sodium Potassium Chloride Carbon Dioxide Anion Gap BUN Creatinine Est GFR ( Amer) Est GFR (Non-Af Amer) POC Glucose (mg/dL) 165 H 52 L 75 Random Glucose Calcium Phosphorus Magnesium Total Bilirubin AST ALT Alkaline Phosphatase Total Protein Albumin Globulin Albumin/Globulin Ratio 01/04/17 01/05/17 01/05/17 22:36 06:26 07:55 WBC RBC Hgb Hct MCV MCH MCHC RDW Plt Count MPV Neut % (Auto) Lymph % (Auto) [place] % (Auto) Eos % (Auto) Baso % (Auto) Neut # Lymph # [place] # Eos # Baso # Sodium 138 Potassium 4.5 Chloride 96 L Carbon Dioxide 29 Anion Gap 18 BUN 23 H Creatinine 4.5 H Est GFR ( Amer) 13 Est GFR (Non-Af Amer) 11 POC Glucose (mg/dL) 128 H 98 Random Glucose 91 Calcium 8.7 Phosphorus 3.3 Magnesium 2.2 Total Bilirubin 0.7 AST 56 H D ALT 123 H D Alkaline Phosphatase 144 H Total Protein 7.3 Albumin 3.9 Globulin 3.4 Albumin/Globulin Ratio 1.1 01/05/17 01/05/17 08:03 11:12 WBC 6.3 RBC 2.99 L Hgb 9.2 L Hct 27.4 L MCV 91.4 MCH 30.8 MCHC 33.7 RDW 15.0 H Plt Count 67 L MPV 12.7 H Neut % (Auto) 66.5 Lymph % (Auto) 17.6 L [place] % (Auto) 11.5 H Eos % (Auto) 3.7 Baso % (Auto) 0.7 Neut # 4.2 Lymph # 1.1 [place] # 0.7 Eos # 0.2 Baso # 0.0 Sodium Potassium Chloride Carbon Dioxide Anion Gap BUN Creatinine Est GFR ( Amer) Est GFR (Non-Af Amer) POC Glucose (mg/dL) 156 H Random Glucose Calcium Phosphorus Magnesium Total Bilirubin AST ALT Alkaline Phosphatase Total Protein Albumin Globulin Albumin/Globulin Ratio Assessment & Plan - Assessment and Plan (Free Text) Assessment: 41F with DM, ESRD ON HD with MSSA bacteremia and concern for right AVF infection No clinical signs of infection at the fistula site afebrile No leukocytosis MSSA on blood cultures x2 from 01/02 Plan: -No surgical intervention indicated at this time--No clinical sign of infection in the fistula at this point -right AVF may continue to be utilized -Continue IV abx -Repeat blood cultures in a few days -Continue to trend WBC -Serial exams -Medical management per primary Discussed with Dr. Bolanos, covering for christie Corral recs per him Fabby Mendoza, PGY2
[2017-01-05] MEDS: Labetalol Hydrochloride 300 mg Tab PO SCH ×2 (13:19→17:38)
--- NOTE | 2017-01-05 15:29 | CP.PCM.PN ---
<Fred Cardona - Last Filed: 01/06/17 07:53> Subjective - Date & Time of Evaluation Date of Evaluation: 01/05/17 - Subjective Subjective: Progress note. Attending: Dr. Campos. Pt seen and examined at bedside. No acute distress. No events overnight. Concern for possible infected AV fistula, will consult vascular surgery. No fevers, chills, vomiting, diarrhea. May need repeat cultures. Objective - Vital Signs/Intake and Output Vital Signs (last 24 hours): Temp Pulse Resp BP Pulse Ox 97.7 F 83 20 121/62 95 01/05/17 07:47 01/05/17 07:47 01/05/17 07:47 01/05/17 07:47 01/05/17 07:47 - Medications Medications: Current Medications Cinacalcet (Sensipar) 90 mg PO DAILY [facility] Last Admin: 01/05/17 11:05 Dose: 90 mg Clonidine HCl (Catapres) 0.2 mg PO BID [facility] Last Admin: 01/05/17 11:08 Dose: 0.2 mg Famotidine (Pepcid) 20 mg PO DAILY [facility] Last Admin: 01/05/17 11:05 Dose: 20 mg Ceftriaxone Sodium 1 gm/ (Sodium Chloride) 100 mls @ 100 mls/hr IVPB DAILY [facility] Last Admin: 01/05/17 11:08 Dose: 100 mls/hr Vancomycin HCl 1 gm/ Sodium (Chloride) 250 mls @ 166.7 mls/hr IVPB MWF [facility] Insulin Aspart (Novolog) 4 unit SC ACTID [facility] Last Admin: 01/05/17 13:23 Dose: Not Given Insulin Glargine (Lantus) 6 unit SC HS [facility] Last Admin: 01/04/17 22:37 Dose: Not Given Insulin Human Regular (Novolin R) 0 unit SC ACHS [facility] PRN Reason: Protocol Last Admin: 01/05/17 13:18 Dose: 1 unit Labetalol HCl (Normodyne) 300 mg PO BID [facility] Last Admin: 01/05/17 13:19 Dose: 300 mg Minoxidil (Loniten) 10 mg PO BID [facility] Last Admin: 01/05/17 13:20 Dose: 10 mg Morphine Sulfate (Morphine) 1 mg IVP Q4 PRN PRN Reason: Pain, severe (8-10) Last Admin: 01/05/17 08:42 Dose: 1 mg Ondansetron HCl (Zofran Inj) 4 mg IVP Q8 PRN PRN Reason: Nausea/Vomiting Last Admin: 01/05/17 15:08 Dose: 4 mg Pregabalin (Lyrica) 50 mg PO DAILY [facility] Last Admin: 01/05/17 11:07 Dose: 50 mg Sevelamer Carbonate (Renvela) 2,400 mg PO TID [facility] Last Admin: 01/05/17 14:41 Dose: 2,400 mg - Labs Labs: 01/05/17 08:03 01/05/17 07:55 APTT 30 SECONDS (21-34) 01/03/17 05:14 - Constitutional Appears: Non-toxic, No Acute Distress - Head Exam Head Exam: ATRAUMATIC, NORMAL INSPECTION, NORMOCEPHALIC - Eye Exam Eye Exam: EOMI - ENT Exam ENT Exam: Mucous Membranes Moist - Neck Exam Neck Exam: Full ROM, Normal Inspection - Respiratory Exam Respiratory Exam: NORMAL BREATHING PATTERN. absent: Respiratory Distress - Cardiovascular Exam Cardiovascular Exam: +S1, +S2 - GI/Abdominal Exam GI & Abdominal Exam: Soft, Normal Bowel Sounds. absent: Tenderness - Extremities Exam Extremities Exam: Full ROM, Normal Inspection - Back Exam Back Exam: NORMAL INSPECTION - Neurological Exam Neurological Exam: Alert, Awake, Oriented x3 - Psychiatric Exam Psychiatric exam: Normal Affect, Normal Mood - Skin Skin Exam: Dry, Intact, Normal Color, Warm Assessment and Plan - Assessment and Plan (Free Text) Assessment: Assessment: Chest Pain w/SOB - possible PNA - CTA - No definite CT evidence of PE. Mosaic pattern of lung parenchyma, nonspecific. DDX: Air-trapping, interstitial edema, interstitial pneumonia, interstitial lung disease. Clinical correlation is needed. Probable bibasilar atelectasis. Superimposed pneumonia is not excluded. Heterogeneous thyroid. - Procal: 51.54; followed up with lactic acid (1.1) sepsis was considered but ruled out based on this finding - total CK: 86 - Rocephin 1 gm IV daily - Vancomycin 500 mg MWF (started by Dr. Tesfaye) - EKG - NSR @92bpm, normal axis, normal EKG Repeat EKG (01/03) - CXR - Prominent ill-defined bibasilar airspace opacities Thrombocytopenia - Platelets 67,000 today - HIT Ab -continue to monitor Elevated transamainases - Monitor LFTs LE Pain - F/U arterial and venous duplex DM type 1 - Started on Home Insulin regiment - 6 units SC HS; 4 units SC ACTID - Lyrica 50mg PO daily HTN - Started on Home medications - Minoxidil 10 mg PO BID - Clonidine 0.2 mg PO BID - Labetalol 300mg PO BID ESRD on HD - Nephro Consulted Dr. Velazquez - Dialysis schedule is [facility], received full treatment on 01/02/17 - consult placed for vascular sx. r/o if av fistula is source of infection Prophylactic Care - Heparin 5,000u SC Q12H - Pepcid 20 mg PO daily - Zofran 4 mg Q8 PRN <Debbi Campos V - Last Filed: 01/06/17 13:51> Subjective - Date & Time of Evaluation Time of Evaluation: 12:15 Objective - Vital Signs/Intake and Output Vital Signs (last 24 hours): Temp Pulse Resp BP Pulse Ox 97.7 F 80 20 124/66 95 01/05/17 07:47 01/05/17 15:00 01/05/17 07:47 01/05/17 15:00 01/05/17 07:47 Intake and Output: 01/05/17 01/06/17 18:59 06:59 Intake Total 680 Balance 680 - Medications Medications: Current Medications Cinacalcet (Sensipar) 90 mg PO DAILY [facility] Last Admin: 01/05/17 11:05 Dose: 90 mg Clonidine HCl (Catapres) 0.2 mg PO BID [facility] Last Admin: 01/05/17 17:38 Dose: 0.2 mg Famotidine (Pepcid) 20 mg PO DAILY [facility] Last Admin: 01/05/17 11:05 Dose: 20 mg Ceftriaxone Sodium 1 gm/ (Sodium Chloride) 100 mls @ 100 mls/hr IVPB DAILY [facility] Last Admin: 01/05/17 11:08 Dose: 100 mls/hr Vancomycin HCl 1 gm/ Sodium (Chloride) 250 mls @ 166.7 mls/hr IVPB [facility] Insulin Aspart (Novolog) 4 unit SC ACTID [facility] Last Admin: 01/05/17 17:24 Dose: 4 unit Insulin Glargine (Lantus) 6 unit SC HS [facility] Last Admin: 09/15/17 22:37 Dose: Not Given Insulin Human Regular (Novolin R) 0 unit SC ACHS [facility] PRN Reason: Protocol Last Admin: 01/05/17 17:20 Dose: Not Given Labetalol HCl (Normodyne) 300 mg PO BID [facility] Last Admin: 01/05/17 17:38 Dose: 300 mg Minoxidil (Loniten) 10 mg PO BID [facility] Last Admin: 01/05/17 17:38 Dose: 10 mg Morphine Sulfate (Morphine) 1 mg IVP Q4 PRN PRN Reason: Pain, severe (8-10) Last Admin: 01/05/17 08:42 Dose: 1 mg Ondansetron HCl (Zofran Inj) 4 mg IVP Q8 PRN PRN Reason: Nausea/Vomiting Last Admin: 01/05/17 15:08 Dose: 4 mg Pregabalin (Lyrica) 50 mg PO DAILY [facility] Last Admin: 01/05/17 11:07 Dose: 50 mg Sevelamer Carbonate (Renvela) 2,400 mg PO TID [facility] Last Admin: 01/05/17 17:38 Dose: 2,400 mg - Labs Labs: 01/05/17 08:03 01/05/17 07:55 APTT 30 SECONDS (21-34) 01/03/17 05:14 Attending/Attestation - Attestation I have personally seen and examined this patient.: Yes I have fully participated in the care of the patient.: Yes I have reviewed all pertinent clinical information, including history, physical exam and plan: Yes Notes (Text): Patient seen, examined, and case discussed with day-time resident during morning rounds. Patient seen at bedside this morning. Patient reports she is feeling better, but reports low back pain. Dialysis site does not appear infected. Discussed with surgery resident (Dr. Elias covering Dr. Finley), does not appear to be infected, recommended to continue IV antibiotics. Echocardiogram completed awaiting official report Assessment Plan 1) Sepsis Pneumonia * Criteria: febrile, leukocytosis; secondary to pneumonia; Lactate acid: 1.1--> code sepsis not called in light of normal lactate * CXR - Prominent ill-defined bibasilar airspace opacities * CTA - No definite CT evidence of PE. Mosaic pattern of lung parenchyma, nonspecific. DDX: Air-trapping, interstitial edema, interstitial pneumonia, interstitial lung disease. Clinical correlation is needed. Probable bibasilar atelectasis. Superimposed pneumonia is not excluded. Heterogeneous thyroid. Follow up as clinically warranted * Infectious Disease (Dr. Tesfaye) on the case-->help appreciated * Nephrology (Dr. Velazquez) on the case-->help appreciated * Blood Culture (01/02/17): Staph Aureus X2-->Sensitive to Rocephin and Vancomycin * Throat Culture (01/03/17): No beta Strep group A isolated * Procalcitonin: 51.54--->ordered for procalcitonin tomorrow * IV Abx: * Rocephin 1 gram IV Q daily (active since 01/03/17) * Gentamicin Sulfate 80mg IV (01/03/17) X1 * Vancomycin 1gram IV MW (active since 01/07/17) * F/u Blood cultures (01/06) to see if infection clears 2) LE Pain * ordered for arterial and venous duplex low suspicion for DVT/arterial problems -->pending 3) Uncontrolled diabetes * Started on Home Insulin regiment Lantus 6 units SC HS; 4 units SC ACTID * Lyrica 50mg PO daily * Check [id number] 4) Hypertension * Minoxidil 10 mg PO BID * Clonidine 0.2 mg PO BID * Labetalol 300mg PO BID * ESRD on dialysis * monitor vital signs 5) ESRD on HD * Nephrology (Dr. Velazquez) on board-->help appreciated * Dialysis schedule is [facility], received full treatment on 01/02/17 prior to coming * F/U with Patient about where AV fistula was done to find out when sutures can be removed--Resident has attempted to try unable to find person who put in the sutures * Renvela 2400mg PO TID 6) Low Back Pain * ordered for L-S spine xray 7) Prophylactic Care * Chemical anticoagulation contraindicated secondary to thrombocytopenia * Pepcid 20 mg PO daily for GI ppx * Zofran 4 mg Q8 PRN nausea * PT/OT eval
[2017-01-05] MEDS: (Lantus) Insulin Glargine, Recombinant SC SCH (22:03)
--- NOTE | 2017-01-06 00:44 | CP.PCM.PN ---
<Nano Dee - Last Filed: 01/06/17 00:41> Subjective - Date & Time of Evaluation Date of Evaluation: 01/06/17 Time of Evaluation: 00:00 - Subjective Subjective: Medicine Progress Note: Patient was seen and examined at bedside in the AM. Patient denies fevers, chills, vomiting, diarrhea. Objective - Vital Signs/Intake and Output Vital Signs (last 24 hours): Temp Pulse Resp BP Pulse Ox 99.0 F 80 20 117/63 97 01/05/17 23:19 01/05/17 23:19 01/05/17 23:19 01/05/17 23:19 01/05/17 23:19 Intake and Output: 01/05/17 01/06/17 18:59 06:59 Intake Total 680 Balance 680 - Medications Medications: Current Medications Cinacalcet (Sensipar) 90 mg PO DAILY [facility] Last Admin: 01/05/17 11:05 Dose: 90 mg Clonidine HCl (Catapres) 0.2 mg PO BID [facility] Last Admin: 01/05/17 17:38 Dose: 0.2 mg Famotidine (Pepcid) 20 mg PO DAILY [facility] Last Admin: 01/05/17 11:05 Dose: 20 mg Ceftriaxone Sodium 1 gm/ (Sodium Chloride) 100 mls @ 100 mls/hr IVPB DAILY [facility] Last Admin: 01/05/17 11:08 Dose: 100 mls/hr Vancomycin HCl 1 gm/ Sodium (Chloride) 250 mls @ 166.7 mls/hr IVPB MWF [facility] Insulin Aspart (Novolog) 4 unit SC ACTID [facility] Last Admin: 01/05/17 17:24 Dose: 4 unit Insulin Glargine (Lantus) 6 unit SC HS [facility] Last Admin: 01/05/17 22:03 Dose: Not Given Insulin Human Regular (Novolin R) 0 unit SC ACHS [facility] PRN Reason: Protocol Last Admin: 01/05/17 17:20 Dose: Not Given Labetalol HCl (Normodyne) 300 mg PO BID [facility] Last Admin: 01/05/17 17:38 Dose: 300 mg Minoxidil (Loniten) 10 mg PO BID [facility] Last Admin: 01/05/17 17:38 Dose: 10 mg Morphine Sulfate (Morphine) 1 mg IVP Q4 PRN PRN Reason: Pain, severe (8-10) Last Admin: 01/05/17 19:21 Dose: 1 mg Ondansetron HCl (Zofran Inj) 4 mg IVP Q8 PRN PRN Reason: Nausea/Vomiting Last Admin: 01/05/17 15:08 Dose: 4 mg Pregabalin (Lyrica) 50 mg PO DAILY [facility] Last Admin: 01/05/17 11:07 Dose: 50 mg Sevelamer Carbonate (Renvela) 2,400 mg PO TID [facility] Last Admin: 01/05/17 17:38 Dose: 2,400 mg - Labs Labs: 01/05/17 08:03 01/05/17 07:55 APTT 30 SECONDS (21-34) 01/03/17 05:14 - Constitutional Appears: No Acute Distress - Head Exam Head Exam: ATRAUMATIC, NORMAL INSPECTION, NORMOCEPHALIC - Eye Exam Eye Exam: EOMI, Normal appearance - ENT Exam ENT Exam: Mucous Membranes Moist - Respiratory Exam Respiratory Exam: Clear to Ausculation Bilateral, NORMAL BREATHING PATTERN - Cardiovascular Exam Cardiovascular Exam: REGULAR RHYTHM, +S1, +S2 - GI/Abdominal Exam GI & Abdominal Exam: Soft, Normal Bowel Sounds. absent: Tenderness - Extremities Exam Extremities Exam: Normal Inspection - Neurological Exam Neurological Exam: Alert, Awake, Oriented x3 - Psychiatric Exam Psychiatric exam: Normal Affect, Normal Mood - Skin Skin Exam: Normal Color, Warm Assessment and Plan - Assessment and Plan (Free Text) Assessment: 1) Sepsis Pneumonia * Criteria: febrile, leukocytosis; secondary to pneumonia; Lactate acid: 1.1--> code sepsis not called in light of normal lactate * CXR - Prominent ill-defined bibasilar airspace opacities * CTA - No definite CT evidence of PE. Mosaic pattern of lung parenchyma, nonspecific. DDX: Air-trapping, interstitial edema, interstitial pneumonia, interstitial lung disease. Clinical correlation is needed. Probable bibasilar atelectasis. Superimposed pneumonia is not excluded. Heterogeneous thyroid. Follow up as clinically warranted * Infectious Disease (Dr. Tesfaye) on the case-->help appreciated * Nephrology (Dr. Velazquez) on the case-->help appreciated * Blood Culture (01/02/17): Staph Aureus X2-->Sensitive to Rocephin and Vancomycin * Throat Culture (01/03/17): No beta Strep group A isolated * Procalcitonin: 51.54--->ordered for procalcitonin tomorrow * IV Abx: * Rocephin 1 gram IV Q daily (active since 01/03/17) * Gentamicin Sulfate 80mg IV (01/03/17) X1 * Vancomycin 1gram IV [facility] (active since 01/07/17) * F/u Blood cultures (01/06) to see if infection clears 2) LE Pain * ordered for arterial and venous duplex low suspicion for DVT/arterial problems -->pending 3) Uncontrolled diabetes * Started on Home Insulin regiment Lantus 6 units SC HS; 4 units SC ACTID * Lyrica 50mg PO daily * Check [id number]--[id number] 4) Hypertension * Minoxidil 10 mg PO BID * Clonidine 0.2 mg PO BID * Labetalol 300mg PO BID * ESRD on dialysis * monitor vital signs 5) ESRD on HD * Nephrology (Dr. Velazquez) on board-->help appreciated * Dialysis schedule is [facility], received full treatment on 01/02/17 prior to coming * Renvela 2400mg PO TID 6) Low Back Pain * ordered for L-S spine xray 7) Prophylactic Care * Chemical anticoagulation contraindicated secondary to thrombocytopenia * Pepcid 20 mg PO daily for GI ppx * Zofran 4 mg Q8 PRN nausea * PT/OT eval <Debbi Campos V - Last Filed: 01/06/17 14:02> Objective - Vital Signs/Intake and Output Vital Signs (last 24 hours): Temp Pulse Resp BP Pulse Ox 97.4 F L 82 20 111/61 96 01/06/17 09:02 01/06/17 09:02 01/06/17 09:02 01/06/17 09:02 01/06/17 09:02 - Medications Medications: Current Medications Cinacalcet (Sensipar) 90 mg PO DAILY [facility] Last Admin: 01/06/17 11:10 Dose: 90 mg Clonidine HCl (Catapres) 0.2 mg PO BID [facility] Last Admin: 01/06/17 11:10 Dose: 0.2 mg Famotidine (Pepcid) 20 mg PO DAILY [facility] Last Admin: 01/06/17 11:10 Dose: 20 mg Vancomycin HCl 1 gm/ Sodium (Chloride) 250 mls @ 166.7 mls/hr IVPB MWF [facility] Insulin Aspart (Novolog) 4 unit SC ACTID [facility] Last Admin: 01/06/17 08:49 Dose: Not Given Insulin Glargine (Lantus) 6 unit SC HS [facility] Last Admin: 01/05/17 22:03 Dose: Not Given Insulin Human Regular (Novolin R) 0 unit SC ACHS [facility] PRN Reason: Protocol Last Admin: 01/06/17 12:44 Dose: Not Given Labetalol HCl (Normodyne) 300 mg PO BID [facility] Last Admin: 01/06/17 11:12 Dose: Not Given Minoxidil (Loniten) 10 mg PO BID [facility] Last Admin: 01/06/17 11:11 Dose: Not Given Morphine Sulfate (Morphine) 1 mg IVP Q4 PRN PRN Reason: Pain, severe (8-10) Last Admin: 01/05/17 19:21 Dose: 1 mg Ondansetron HCl (Zofran Inj) 4 mg IVP Q8 PRN PRN Reason: Nausea/Vomiting Last Admin: 01/05/17 15:08 Dose: 4 mg Pregabalin (Lyrica) 50 mg PO DAILY [facility] Last Admin: 01/06/17 11:10 Dose: 50 mg Sevelamer Carbonate (Renvela) 2,400 mg PO TID [facility] Last Admin: 01/06/17 11:09 Dose: 2,400 mg - Labs Labs: 01/06/17 08:15 01/06/17 08:15 APTT 30 SECONDS (21-34) 01/03/17 05:14 Attending/Attestation - Attestation I have personally seen and examined this patient.: Yes I have fully participated in the care of the patient.: Yes I have reviewed all pertinent clinical information, including history, physical exam and plan: Yes Notes (Text): Patient seen, examined, and case discussed with day-time resident during morning rounds. Patient seen at bedside this morning. Patient reports she hears a "Swooshing" sound that keeps her awake. Patient denies lightheadedness, denies dizziness. Patient on my exam appears to have right cartoid bruit. Will order for carotid doppler. Patient's body aches and pains are lessened. Per vascular surgery, patient's dialysis site does not appear infected. Pending final report on echocardiogram. Patient's repeat blood cultures (01/06/17) collected today-->f/u if bacteremia has improved or not. Lumbar-Spine xray (01/06/17): No evidence of acute fracture or subluxation. Liver function increasing; d/c Rocephin; Will ask ID regarding what antibiotic to replace Assessment Plan 1) Sepsis Pneumonia * Criteria: febrile, leukocytosis; secondary to pneumonia; Lactate acid: 1.1--> code sepsis not called in light of normal lactate * CXR - Prominent ill-defined bibasilar airspace opacities * CTA - No definite CT evidence of PE. Mosaic pattern of lung parenchyma, nonspecific. DDX: Air-trapping, interstitial edema, interstitial pneumonia, interstitial lung disease. Clinical correlation is needed. Probable bibasilar atelectasis. Superimposed pneumonia is not excluded. Heterogeneous thyroid. Follow up as clinically warranted * Infectious Disease (Dr. Tesfaye) on the case-->help appreciated * Nephrology (Dr. Velazquez) on the case-->help appreciated * Blood Culture (01/02/17): Staph Aureus X2-->Sensitive to Rocephin and Vancomycin * Blood culture (01/06/17): pending * Throat Culture (01/03/17): No beta Strep group A isolated * Procalcitonin: 51.54---> pending repeat procalcitonin. * IV Abx: * d/c Rocephin 1 gram IV Q daily (active since 01/03/17-01/06/17 given rise of LFTs) * Gentamicin Sulfate 80mg IV (01/03/17) X1 * Vancomycin 1gram IV MWF (active since 01/07/17) * F/u Blood cultures (01/06) to see if infection clears 2) LE Pain * ordered for arterial and venous duplex low suspicion for DVT/arterial problems -->pending 3) Uncontrolled diabetes * Started on Home Insulin regiment Lantus 6 units SC HS; 4 units SC ACTID * Lyrica 50mg PO daily * Check [id number]--[id number] 4) Hypertension * Minoxidil 10 mg PO BID * Clonidine 0.2 mg PO BID * Labetalol 300mg PO BID * ESRD on dialysis * monitor vital signs 5) ESRD on HD * Nephrology (Dr. Velazquez) on board-->help appreciated * Dialysis schedule is MWF, received full treatment on 01/02/17 prior to coming * F/U with Patient about where AV fistula was done to find out when sutures can be removed--Resident has attempted to try unable to find person who put in the sutures * Renvela 2400mg PO TID 6) Low Back Pain * Lumbar-Spine xray (01/06/17): No evidence of acute fracture or subluxation. 7) Prophylactic Care * Chemical anticoagulation contraindicated secondary to thrombocytopenia * Pepcid 20 mg PO daily for GI ppx * Zofran 4 mg Q8 PRN nausea * PT/OT eval pending
--- NOTE | 2017-01-06 03:38 | CP.PCM.PN ---
<Fabby Mendoza - Last Filed: 01/06/17 10:19> Subjective - Date & Time of Evaluation Date of Evaluation: 01/06/17 Time of Evaluation: 06:30 - Subjective Subjective: Patient seen and examined this AM. NAEO. Patient denies any pain at the fistula site though it has become pruritic, fevers, chills, nausea, vomiting, or any other symptoms. Objective - Vital Signs/Intake and Output Vital Signs (last 24 hours): Temp Pulse Resp BP Pulse Ox 99.0 F 80 20 117/63 97 01/05/17 23:19 01/05/17 23:19 01/05/17 23:19 01/05/17 23:19 01/05/17 23:19 Intake and Output: 01/05/17 01/06/17 18:59 06:59 Intake Total 680 Balance 680 - Medications Medications: Current Medications Cinacalcet (Sensipar) 90 mg PO DAILY [facility] Last Admin: 01/05/17 11:05 Dose: 90 mg Clonidine HCl (Catapres) 0.2 mg PO BID [facility] Last Admin: 01/05/17 17:38 Dose: 0.2 mg Famotidine (Pepcid) 20 mg PO DAILY [facility] Last Admin: 01/05/17 11:05 Dose: 20 mg Ceftriaxone Sodium 1 gm/ (Sodium Chloride) 100 mls @ 100 mls/hr IVPB DAILY [facility] Last Admin: 01/05/17 11:08 Dose: 100 mls/hr Vancomycin HCl 1 gm/ Sodium (Chloride) 250 mls @ 166.7 mls/hr IVPB F [facility] Insulin Aspart (Novolog) 4 unit SC ACTID [facility] Last Admin: 01/05/17 17:24 Dose: 4 unit Insulin Glargine (Lantus) 6 unit SC HS [facility] Last Admin: 01/05/17 22:03 Dose: Not Given Insulin Human Regular (Novolin R) 0 unit SC ACHS [facility] PRN Reason: Protocol Last Admin: 01/05/17 17:20 Dose: Not Given Labetalol HCl (Normodyne) 300 mg PO BID [facility] Last Admin: 01/05/17 17:38 Dose: 300 mg Minoxidil (Loniten) 10 mg PO BID [facility] Last Admin: 01/05/17 17:38 Dose: 10 mg Morphine Sulfate (Morphine) 1 mg IVP Q4 PRN PRN Reason: Pain, severe (8-10) Last Admin: 01/05/17 19:21 Dose: 1 mg Ondansetron HCl (Zofran Inj) 4 mg IVP Q8 PRN PRN Reason: Nausea/Vomiting Last Admin: 01/05/17 15:08 Dose: 4 mg Pregabalin (Lyrica) 50 mg PO DAILY [facility] Last Admin: 01/05/17 11:07 Dose: 50 mg Sevelamer Carbonate (Renvela) 2,400 mg PO TID [facility] Last Admin: 01/05/17 17:38 Dose: 2,400 mg - Labs Labs: 01/05/17 08:03 01/05/17 07:55 APTT 30 SECONDS (21-34) 01/03/17 05:14 - Constitutional Appears: Non-toxic, No Acute Distress - Head Exam Head Exam: ATRAUMATIC, NORMOCEPHALIC - Eye Exam Eye Exam: Normal appearance. absent: Conjunctival injection, Scleral icterus - ENT Exam ENT Exam: Mucous Membranes Moist, Normal Oropharynx - Respiratory Exam Respiratory Exam: NORMAL BREATHING PATTERN. absent: Accessory Muscle Use, Respiratory Distress - Cardiovascular Exam Cardiovascular Exam: RRR - GI/Abdominal Exam GI & Abdominal Exam: Soft. absent: Distended - Extremities Exam Additional comments: right arm AVF with no overlying erythema of the skin or swelling or tenderness - Neurological Exam Neurological Exam: Alert, Awake, Oriented x3 - Psychiatric Exam Psychiatric exam: Normal Affect, Normal Mood - Skin Skin Exam: Dry, Intact, Normal Color. absent: Warm Assessment and Plan - Assessment and Plan (Free Text) Assessment: 41F with DM, ESRD ON HD with MSSA bacteremia and concern for right AVF infection Plan: -No surgical intervention indicated at this time--No clinical sign of infection in the fistula -right AVF may continue to be utilized -Continue IV abx -Repeat blood cultures today--further surgical planning pending results -Continue to trend WBC -Serial exams -Medical management per primary Discussed with Dr. Bolanos, covering for Dr. Finley, further recs per him Fabby Mendoza, PGY2 <Debbi Campos V - Last Filed: 01/06/17 14:01> Objective - Vital Signs/Intake and Output Vital Signs (last 24 hours): Temp Pulse Resp BP Pulse Ox 97.4 F L 82 20 111/61 96 01/06/17 09:02 01/06/17 09:02 01/06/17 09:02 01/06/17 09:02 01/06/17 09:02 - Medications Medications: Current Medications Cinacalcet (Sensipar) 90 mg PO DAILY [facility] Last Admin: 01/06/17 11:10 Dose: 90 mg Clonidine HCl (Catapres) 0.2 mg PO BID [facility] Last Admin: 01/06/17 11:10 Dose: 0.2 mg Famotidine (Pepcid) 20 mg PO DAILY [facility] Last Admin: 01/06/17 11:10 Dose: 20 mg Vancomycin HCl 1 gm/ Sodium (Chloride) 250 mls @ 166.7 mls/hr IVPB MWF [facility] Insulin Aspart (Novolog) 4 unit SC ACTID [facility] Last Admin: 01/06/17 08:49 Dose: Not Given Insulin Glargine (Lantus) 6 unit SC HS [facility] Last Admin: 01/05/17 22:03 Dose: Not Given Insulin Human Regular (Novolin R) 0 unit SC ACHS [facility] PRN Reason: Protocol Last Admin: 01/06/17 12:44 Dose: Not Given Labetalol HCl (Normodyne) 300 mg PO BID [facility] Last Admin: 01/06/17 11:12 Dose: Not Given Minoxidil (Loniten) 10 mg PO BID [facility] Last Admin: 01/06/17 11:11 Dose: Not Given Morphine Sulfate (Morphine) 1 mg IVP Q4 PRN PRN Reason: Pain, severe (8-10) Last Admin: 01/05/17 19:21 Dose: 1 mg Ondansetron HCl (Zofran Inj) 4 mg IVP Q8 PRN PRN Reason: Nausea/Vomiting Last Admin: 01/05/17 15:08 Dose: 4 mg Pregabalin (Lyrica) 50 mg PO DAILY [facility] Last Admin: 01/06/17 11:10 Dose: 50 mg Sevelamer Carbonate (Renvela) 2,400 mg PO TID [facility] Last Admin: 01/06/17 11:09 Dose: 2,400 mg - Labs Labs: 01/06/17 08:15 01/06/17 08:15 APTT 30 SECONDS (21-34) 01/03/17 05:14 Attending/Attestation - Attestation Notes (Text): Please disregard my addendum. This note under vascular surgery service. Apologize for error.
[2017-01-06] MEDS: (Novolin R) Insulin Human Regular 100 units/ml vial SC SCH ×4 (07:16→22:00)
[2017-01-06 08:23] LABS: BASO % 0.6 % (0.0-2.0); EOS # 0.2 K/uL (0.0-0.7); EOS % 3.6 % (0.0-4.0); HEMATOCRIT 27.9 % (34.0-47.0); LYMPH # 1.3 K/uL (1.0-4.3); LYMPH % 23.9 % (20.0-40.0); MEAN CELL VOLUME 91.8 fL (81.0-99.0); MEAN CORPUSCULAR HEMOGLOBIN 30.6 pg (27.0-31.0); MEAN CORPUSCULAR HGB CONC 33.4 g/dL (33.0-37.0); MEAN PLATELET VOLUME 12.6 fL (7.2-11.7); MONO # 0.6 K/uL (0.0-0.8); MONO % 10.4 % (0.0-10.0); RED CELL DISTRIBUTION WIDTH 14.7 % (11.5-14.5); WHITE BLOOD COUNT 5.6 K/uL (4.8-10.8)
[2017-01-06 08:38] LABS: POTASSIUM 4.8 mmol/L (3.6-5.2)
[2017-01-06 08:40] LABS: BILIRUBIN,TOTAL 0.8 mg/dL (0.2-1.3)
[2017-01-06 08:41] LABS: ALB/GLOB RATIO 1.2 (1.0-2.1); CALCIUM 8.6 mg/dl (8.6-10.4); PHOSPHOROUS 3.9 mg/dL (2.5-4.5); TOTAL PROTEIN 7.8 g/dL (6.3-8.3)
[2017-01-06 08:42] LABS: MAGNESIUM 2.4 mg/dL (1.6-2.3)
[2017-01-06] MEDS: (Novolog) Insulin Aspart, Recombinant 100 u/ml 10 ml vial SC SCH ×3 (08:49→16:53)
[2017-01-06] MEDS: Labetalol Hydrochloride 300 mg Tab PO SCH ×2 (11:12→17:50)
--- NOTE | 2017-01-06 12:06 | RAD ---
PROCEDURE: Radiographs of the Lumbar Spine. HISTORY: low back pain COMPARISON: No prior. FINDINGS: BONES: Normal alignment. No listhesis. No fracture. DISC SPACES: Mild degenerative disc changes. OTHER FINDINGS: Diffuse atherosclerotic calcification in the abdominal aorta. IMPRESSION: No evidence of acute fracture or subluxation P
[2017-01-06] MEDS ORDERED: cefTRIAXone IV 1 gm in Dextros 50 ML IVPB SCH (22:00)
[2017-01-06] MEDS: (Lantus) Insulin Glargine, Recombinant SC SCH (22:00)
[2017-01-07 08:23] LABS: BASO % 0.6 % (0.0-2.0); EOS # 0.2 K/uL (0.0-0.7); EOS % 4.5 % (0.0-4.0); HEMATOCRIT 26.7 % (34.0-47.0); LYMPH # 1.4 K/uL (1.0-4.3); LYMPH % 29.7 % (20.0-40.0); MEAN CORPUSCULAR HEMOGLOBIN 30.1 pg (27.0-31.0); MEAN CORPUSCULAR HGB CONC 32.7 g/dL (33.0-37.0); MEAN PLATELET VOLUME 13.2 fL (7.2-11.7); MONO # 0.6 K/uL (0.0-0.8); MONO % 12.7 % (0.0-10.0); RED CELL DISTRIBUTION WIDTH 14.6 % (11.5-14.5); WHITE BLOOD COUNT 4.8 K/uL (4.8-10.8)
[2017-01-07] MEDS: (Novolog) Insulin Aspart, Recombinant 100 u/ml 10 ml vial SC SCH ×3 (08:42→20:51)
[2017-01-07] MEDS: (Novolin R) Insulin Human Regular 100 units/ml vial SC SCH ×4 (08:42→22:26)
[2017-01-07 09:09] LABS: ALB/GLOB RATIO 1.2 (1.0-2.1); BILIRUBIN,TOTAL 0.7 mg/dL (0.2-1.3); CALCIUM 7.8 mg/dl (8.6-10.4); PHOSPHOROUS 4.8 mg/dL (2.5-4.5); POTASSIUM 5.6 mmol/L (3.6-5.2); TOTAL PROTEIN 7.1 g/dL (6.3-8.3)
--- NOTE | 2017-01-07 09:52 | CP.PCM.PN ---
Subjective - Date & Time of Evaluation Date of Evaluation: 01/07/17 Time of Evaluation: 09:52 - Subjective Subjective: Vascular Surgery Progress Note for Dr. Finley Patient seen and examined at bedside. No acute event overnight. Patient is not experiencing any pain, swelling, or redness. Patient complaining of fatigue, sob and occasional palpitations Tolerating diet. Denies fevers/chills, cp, abd pain, n/v/d. Objective - Vital Signs/Intake and Output Vital Signs (last 24 hours): Temp Pulse Resp BP Pulse Ox 97.4 F L 75 20 134/62 95 01/07/17 08:00 01/07/17 08:00 01/07/17 08:00 01/07/17 08:00 01/07/17 08:00 - Medications Medications: Current Medications Cinacalcet (Sensipar) 90 mg PO DAILY [facility] Last Admin: 01/06/17 11:10 Dose: 90 mg Clonidine HCl (Catapres) 0.2 mg PO BID [facility] Last Admin: 01/06/17 17:49 Dose: 0.2 mg Famotidine (Pepcid) 20 mg PO DAILY [facility] Last Admin: 01/06/17 11:10 Dose: 20 mg Vancomycin HCl 1 gm/ Sodium (Chloride) 250 mls @ 166.7 mls/hr IVPB MWF [facility] Ceftriaxone Sodium (Rocephin Iv 1 Gm Duplex) 50 mls @ 100 mls/hr IVPB Q24H [facility] Last Admin: 01/06/17 22:47 Dose: 100 mls/hr Insulin Aspart (Novolog) 4 unit SC ACTID [facility] Last Admin: 01/07/17 08:42 Dose: 4 unit Insulin Glargine (Lantus) 6 unit SC HS [facility] Last Admin: 01/06/17 22:00 Dose: Not Given Insulin Human Regular (Novolin R) 0 unit SC ACHS [facility] PRN Reason: Protocol Last Admin: 01/07/17 08:42 Dose: 1 unit Labetalol HCl (Normodyne) 300 mg PO BID [facility] Last Admin: 01/06/17 17:50 Dose: 300 mg Minoxidil (Loniten) 10 mg PO BID [facility] Last Admin: 01/06/17 17:49 Dose: 10 mg Morphine Sulfate (Morphine) 1 mg IVP Q4 PRN PRN Reason: Pain, severe (8-10) Last Admin: 01/06/17 22:47 Dose: 1 mg Ondansetron HCl (Zofran Inj) 4 mg IVP Q8 PRN PRN Reason: Nausea/Vomiting Last Admin: 01/06/17 17:55 Dose: 4 mg Pregabalin (Lyrica) 50 mg PO DAILY [facility] Last Admin: 01/06/17 11:10 Dose: 50 mg Sevelamer Carbonate (Renvela) 2,400 mg PO TID [facility] Last Admin: 01/06/17 17:49 Dose: 2,400 mg - Labs Labs: 01/07/17 08:15 01/06/17 08:15 APTT 30 SECONDS (21-34) 01/03/17 05:14 - Constitutional Appears: No Acute Distress - Head Exam Head Exam: ATRAUMATIC, NORMOCEPHALIC - Eye Exam Eye Exam: Normal appearance - ENT Exam ENT Exam: Mucous Membranes Moist - Respiratory Exam Respiratory Exam: NORMAL BREATHING PATTERN - Cardiovascular Exam Cardiovascular Exam: REGULAR RHYTHM - GI/Abdominal Exam GI & Abdominal Exam: Soft. absent: Distended, Firm, Guarding, Rigid, Tenderness , Rebound - Extremities Exam Additional comments: right arm AVF with no overlying erythema, discoloration, edema or tenderness tortuous vessel in RUE sutures in place - Neurological Exam Neurological Exam: Alert, Awake, Oriented x3 - Psychiatric Exam Psychiatric exam: Normal Affect, Normal Mood - Skin Skin Exam: Dry, Intact Assessment and Plan - Assessment and Plan (Free Text) Plan: 41F with DM, ESRD ON HD with MSSA bacteremia and concern for right AVF infection -No surgical intervention indicated at this time -No clinical sign of infection in the fistula -right AV Fistula may continue to be utilized -Continue IV abx -f/u blood cultures -Continue to trend WBC -Serial exams -Medical management per primary Will KENAN Mosley PGY1
[2017-01-07 10:06] LABS: MAGNESIUM 2.6 mg/dL (1.6-2.3)
[2017-01-07] MEDS: Labetalol Hydrochloride 300 mg Tab PO SCH ×2 (11:14→21:05)
[2017-01-07 11:57] LABS: HEPARIN-IND PLATELET AB Negative (Negative)
[2017-01-07 12:12] LABS: RESULT Negative (Negative)
[2017-01-07] MEDS ORDERED: Bisacodyl 5mg EC Tab PO ONE ×2 (12:50→15:30)
[2017-01-07] MEDS ORDERED: Sod Polystyrene Sulf 15 gm/60 ml Oral Susp PO ONE (13:00)
--- NOTE | 2017-01-07 13:38 | CP.PCM.PN ---
Subjective - Date & Time of Evaluation Date of Evaluation: 01/07/17 Time of Evaluation: 13:36 - Subjective Subjective: c/o weakness Hg dropped- 8.7 Has MSSA bacteremia Same [facility]; no other complaint for dialysis today Objective - Vital Signs/Intake and Output Vital Signs (last 24 hours): Temp Pulse Resp BP Pulse Ox 97.4 F L 76 20 134/62 99 01/07/17 08:00 01/07/17 12:10 01/07/17 08:00 01/07/17 08:00 01/07/17 12:10 - Medications Medications: Current Medications Cinacalcet (Sensipar) 90 mg PO DAILY [facility] Last Admin: 01/07/17 11:15 Dose: 90 mg Clonidine HCl (Catapres) 0.2 mg PO BID [facility] Last Admin: 01/07/17 11:13 Dose: Not Given Epoetin Dewey (Procrit) 10,000 unit IV [facility] Famotidine (Pepcid) 20 mg PO DAILY [facility] Last Admin: 01/07/17 11:14 Dose: 20 mg Vancomycin HCl 1 gm/ Sodium (Chloride) 250 mls @ 166.7 mls/hr IVPB MWF [facility] Last Admin: 01/07/17 11:16 Dose: 166.7 mls/hr Ceftriaxone Sodium (Rocephin Iv 1 Gm Duplex) 50 mls @ 100 mls/hr IVPB Q24H [facility] Last Admin: 01/06/17 22:47 Dose: 100 mls/hr Insulin Aspart (Novolog) 4 unit SC ACTID [facility] Last Admin: 01/07/17 08:42 Dose: 4 unit Insulin Glargine (Lantus) 6 unit SC HS [facility] Last Admin: 01/06/17 22:00 Dose: Not Given Insulin Human Regular (Novolin R) 0 unit SC ACHS [facility] PRN Reason: Protocol Last Admin: 01/07/17 08:42 Dose: 1 unit Labetalol HCl (Normodyne) 300 mg PO BID [facility] Last Admin: 01/07/17 11:14 Dose: Not Given Minoxidil (Loniten) 10 mg PO BID [facility] Last Admin: 01/07/17 11:14 Dose: Not Given Morphine Sulfate (Morphine) 1 mg IVP Q4 PRN PRN Reason: Pain, severe (8-10) Last Admin: 01/06/17 22:47 Dose: 1 mg Ondansetron HCl (Zofran Inj) 4 mg IVP Q8 PRN PRN Reason: Nausea/Vomiting Last Admin: 01/06/17 17:55 Dose: 4 mg Pregabalin (Lyrica) 50 mg PO DAILY [facility] Last Admin: 01/07/17 11:14 Dose: 50 mg Sevelamer Carbonate (Renvela) 2,400 mg PO TID [facility] Last Admin: 01/07/17 11:15 Dose: 2,400 mg - Labs Labs: 01/07/17 08:15 01/07/17 08:15 APTT 30 SECONDS (21-34) 01/03/17 05:14 - Constitutional Appears: No Acute Distress, Chronically Ill - Head Exam Head Exam: ATRAUMATIC, NORMAL INSPECTION - Eye Exam Eye Exam: EOMI, Normal appearance - Neck Exam Neck Exam: Normal Inspection. absent: Tenderness - Cardiovascular Exam Cardiovascular Exam: REGULAR RHYTHM, +S1 - GI/Abdominal Exam GI & Abdominal Exam: Soft. absent: Tenderness - Extremities Exam Extremities Exam: Normal Inspection. absent: Tenderness - Neurological Exam Neurological Exam: Alert, CN II-XII Intact - Skin Skin Exam: Dry, Warm Assessment and Plan (1) Hypertensive chronic kidney disease with stage 5 chronic kidney disease or end stage renal disease Status: Acute (2) Heart failure, unspecified Status: Acute (3) ESRD (end stage renal disease) on dialysis Status: Acute (4) MSSA (methicillin susceptible Staphylococcus aureus) septicemia Status: Acute - Assessment and Plan (Free Text) Plan: Dialysis today and MWF Add EPO treatment for MSSA bacteremia
--- NOTE | 2017-01-07 14:04 | CP.PCM.PN ---
<Hemalatha Bean - Last Filed: 01/07/17 20:29> Subjective - Date & Time of Evaluation Date of Evaluation: 01/07/17 Time of Evaluation: 14:04 - Subjective Subjective: Patient was seen and examined at bed side. Patient denied any acute events overnight, she was able to sleep better. The pain level has decreased but still complains of leg pain. Patient still has cough productive of white sputum. Helen says she was SOB yesterday but it has resolved on the nasal canula. Patient reports of hearing a fluid rushing sound b/l. She also states feels nauseous after eating and says she has not had a BM in 3 or 4 days. Patient denies any scruggs/cp/sob/abd pain/f/c/v/d. Objective - Vital Signs/Intake and Output Vital Signs (last 24 hours): Temp Pulse Resp BP Pulse Ox 97.4 F L 76 20 134/62 99 01/07/17 08:00 01/07/17 12:10 01/07/17 08:00 01/07/17 08:00 01/07/17 12:10 - Medications Medications: Current Medications Cinacalcet (Sensipar) 90 mg PO DAILY [facility] Last Admin: 01/07/17 11:15 Dose: 90 mg Clonidine HCl (Catapres) 0.2 mg PO BID [facility] Last Admin: 01/07/17 11:13 Dose: Not Given Epoetin Dewey (Procrit) 10,000 unit IV [facility] Famotidine (Pepcid) 20 mg PO DAILY [facility] Last Admin: 01/07/17 11:14 Dose: 20 mg Vancomycin HCl 1 gm/ Sodium (Chloride) 250 mls @ 166.7 mls/hr IVPB MWF [facility] Last Admin: 01/07/17 11:16 Dose: 166.7 mls/hr Ceftriaxone Sodium (Rocephin Iv 1 Gm Duplex) 50 mls @ 100 mls/hr IVPB Q24H [facility] Last Admin: 01/06/17 22:47 Dose: 100 mls/hr Insulin Aspart (Novolog) 4 unit SC ACTID [facility] Last Admin: 01/07/17 13:19 Dose: Not Given Insulin Glargine (Lantus) 6 unit SC HS [facility] Last Admin: 01/06/17 22:00 Dose: Not Given Insulin Human Regular (Novolin R) 0 unit SC ACHS [facility] PRN Reason: Protocol Last Admin: 01/07/17 13:18 Dose: Not Given Labetalol HCl (Normodyne) 300 mg PO BID [facility] Last Admin: 01/07/17 11:14 Dose: Not Given Minoxidil (Loniten) 10 mg PO BID [facility] Last Admin: 01/07/17 11:14 Dose: Not Given Morphine Sulfate (Morphine) 1 mg IVP Q4 PRN PRN Reason: Pain, severe (8-10) Last Admin: 01/07/17 13:26 Dose: 1 mg Ondansetron HCl (Zofran Inj) 4 mg IVP Q8 PRN PRN Reason: Nausea/Vomiting Last Admin: 01/07/17 13:27 Dose: 4 mg Pregabalin (Lyrica) 50 mg PO DAILY [facility] Last Admin: 01/07/17 11:14 Dose: 50 mg Sevelamer Carbonate (Renvela) 2,400 mg PO TID [facility] Last Admin: 01/07/17 13:19 Dose: 2,400 mg - Labs Labs: 01/07/17 08:15 01/07/17 08:15 APTT 30 SECONDS (21-34) 01/03/17 05:14 - Constitutional Appears: Non-toxic, No Acute Distress - Head Exam Head Exam: NORMAL INSPECTION - Eye Exam Eye Exam: EOMI - ENT Exam ENT Exam: Mucous Membranes Moist - Respiratory Exam Respiratory Exam: Clear to Ausculation Bilateral, NORMAL BREATHING PATTERN - Cardiovascular Exam Cardiovascular Exam: REGULAR RHYTHM, +S1, +S2 - GI/Abdominal Exam GI & Abdominal Exam: Soft, Normal Bowel Sounds. absent: Distended, Tenderness - Extremities Exam Extremities Exam: Normal Inspection - Neurological Exam Neurological Exam: Alert, Awake - Psychiatric Exam Psychiatric exam: Normal Affect, Normal Mood - Skin Skin Exam: Dry, Normal Color, Warm Assessment and Plan - Assessment and Plan (Free Text) Assessment: 1) Sepsis Pneumonia * Criteria: febrile, leukocytosis; secondary to pneumonia; Lactate acid: 1.1--> code sepsis not called in light of normal lactate * CXR - Prominent ill-defined bibasilar airspace opacities * CTA - No definite CT evidence of PE. Mosaic pattern of lung parenchyma, nonspecific. DDX: Air-trapping, interstitial edema, interstitial pneumonia, interstitial lung disease. Clinical correlation is needed. Probable bibasilar atelectasis. Superimposed pneumonia is not excluded. Heterogeneous thyroid. Follow up as clinically warranted * Infectious Disease (Dr. Tesfaye) on the case-->help appreciated * Nephrology (Dr. Velazquez) on the case-->help appreciated * Blood Culture (01/02/17): Staph Aureus X2-->Sensitive to Rocephin and Vancomycin * Throat Culture (01/03/17): No beta Strep group A isolated * Procalcitonin: 51.54--->ordered for procalcitonin tomorrow * IV Abx: * Rocephin 1 gram IV Q daily (active since 01/03/17) * Gentamicin Sulfate 80mg IV (01/03/17) X1 * Vancomycin 1gram IV MW (active since 01/07/17) * F/u Blood cultures (01/06) to see if infection clears 2) LE Pain * ordered for arterial and venous duplex low suspicion for DVT/arterial problems -->pending 3) Uncontrolled diabetes * Started on Home Insulin regiment Lantus 6 units SC HS; 4 units SC ACTID * Lyrica 50mg PO daily * Check [id number]--[id number] 4) Hypertension * Minoxidil 10 mg PO BID * Clonidine 0.2 mg PO BID * Labetalol 300mg PO BID * ESRD on dialysis * monitor vital signs 5) ESRD on HD * Nephrology (Dr. Velazquez) on board-->help appreciated * Dialysis schedule is [facility], received full treatment on 01/02/17 prior to coming * Patient should get Gentamycin 80 mg after each dialysis treatment * Renvela 2400mg PO TID * Sutures removed from HD site 01/07 (contacted where they were placed and confirmed removal date) 6) Low Back Pain * ordered for L-S spine xray 7) Constipation * Dulcalax given (01/07) 8.) Prophylactic Care * Chemical anticoagulation contraindicated secondary to thrombocytopenia * Pepcid 20 mg PO daily for GI ppx * Zofran 4 mg Q8 PRN nausea * PT/OT eval Disposition: Patient would like [facility]. Currently waiting on insurance authorization. <Debbi Campos V - Last Filed: 01/08/17 09:47> Objective - Vital Signs/Intake and Output Vital Signs (last 24 hours): Temp Pulse Resp BP Pulse Ox 98.1 F 78 18 126/60 98 01/08/17 07:45 01/08/17 07:45 01/08/17 07:45 01/08/17 07:45 01/08/17 07:45 Intake and Output: 01/08/17 01/08/17 06:59 18:59 Intake Total 400 Balance 400 - Medications Medications: Current Medications Cinacalcet (Sensipar) 90 mg PO DAILY [facility] Last Admin: 01/07/17 11:15 Dose: 90 mg Clonidine HCl (Catapres) 0.2 mg PO BID [facility] Last Admin: 01/07/17 21:04 Dose: 0.2 mg Epoetin Dewey (Procrit) 10,000 unit IV MWF [facility] Last Admin: 01/07/17 18:18 Dose: 10,000 unit Famotidine (Pepcid) 20 mg PO DAILY [facility] Last Admin: 01/07/17 11:14 Dose: 20 mg Nafcillin Sodium 2 gm/ Sodium (Chloride) 250 mls @ 250 mls/hr IVPB Q6 [facility] Last Admin: 01/08/17 06:55 Dose: 250 mls/hr Gentamicin Sulfate 80 mg/ (Sodium Chloride) 102 mls @ 100 mls/hr IVPB MWF [facility] Insulin Aspart (Novolog) 4 unit SC ACTID [facility] Last Admin: 01/07/17 20:51 Dose: Not Given Insulin Glargine (Lantus) 6 unit SC HS [facility] Last Admin: 01/07/17 22:35 Dose: 6 units Insulin Human Regular (Novolin R) 0 unit SC ACHS [facility] PRN Reason: Protocol Last Admin: 01/07/17 22:26 Dose: Not Given Labetalol HCl (Normodyne) 300 mg PO BID [facility] Last Admin: 01/07/17 21:05 Dose: 300 mg Minoxidil (Loniten) 10 mg PO BID [facility] Last Admin: 01/07/17 21:05 Dose: 10 mg Morphine Sulfate (Morphine) 1 mg IVP Q4 PRN PRN Reason: Pain, severe (8-10) Last Admin: 01/07/17 13:26 Dose: 1 mg Ondansetron HCl (Zofran Inj) 4 mg IVP Q8 PRN PRN Reason: Nausea/Vomiting Last Admin: 01/07/17 13:27 Dose: 4 mg Pregabalin (Lyrica) 50 mg PO DAILY [facility] Last Admin: 01/07/17 11:14 Dose: 50 mg Sevelamer Carbonate (Renvela) 2,400 mg PO TID [facility] Last Admin: 01/07/17 21:08 Dose: 2,400 mg - Labs Labs: 01/07/17 08:15 01/07/17 08:15 APTT 30 SECONDS (21-34) 01/03/17 05:14 Attending/Attestation - Attestation I have personally seen and examined this patient.: Yes I have fully participated in the care of the patient.: Yes I have reviewed all pertinent clinical information, including history, physical exam and plan: Yes Notes (Text): This is late computer entry for 01/07/17. Patient seen, examined and case discussed with day-time resident. Patient seen at bedside. Patient reports she is feeling awful, less body aches and pains. Patient is open to subacute rehab for discharge planning. Resident confirmed with [facility] it is alright to remove sutures, surgery residents have removed sutures from the site and the dialysis does not appears infected. Procalcitonin anjel to 61 from 51. Patient has not had Vancomycin at the time of the procalcitonin draw. Blood culture (01/06) is positive 1/2 bottles awaiting speciation. Patient reports "swooshing' sound-->f.u cartoid doppler. Assessment Plan 1) Sepsis Pneumonia Bacteremia--MSSA * Criteria: febrile, leukocytosis; secondary to pneumonia; Lactate acid: 1.1--> code sepsis not called in light of normal lactate * CXR - Prominent ill-defined bibasilar airspace opacities * CTA - No definite CT evidence of PE. Mosaic pattern of lung parenchyma, nonspecific. DDX: Air-trapping, interstitial edema, interstitial pneumonia, interstitial lung disease. Clinical correlation is needed. Probable bibasilar atelectasis. Superimposed pneumonia is not excluded. Heterogeneous thyroid. Follow up as clinically warranted * Infectious Disease (Dr. Tesfaye) on the case-->help appreciated * Nephrology (Dr. Velazquez) on the case-->help appreciated * Blood Culture (01/02/17): Staph Aureus X2-->Sensitive to Rocephin and Vancomycin-->antibiotic regimen changed per ID * Blood culture (01/06/17): awaiting speciation * Throat Culture (01/03/17): No beta Strep group A isolated * Procalcitonin: 51.54---> 61 * Infectious disease changed regimen of IV abx listed below: * IV Abx: * Naficillin 2grm IV Q 6 hours * Gentamicin 80mg IV MWF * F/u Blood cultures (01/06) to see if infection clears 2) LE Pain * ordered for arterial and venous duplex low suspicion for DVT/arterial problems -->pending 3) Uncontrolled diabetes * Started on Home Insulin regiment Lantus 6 units SC HS; 4 units SC ACTID * Lyrica 50mg PO daily * Check [id number]--Updvely 4) Hypertension * Minoxidil 10 mg PO BID * Clonidine 0.2 mg PO BID * Labetalol 300mg PO BID * ESRD on dialysis * monitor vital signs 5) ESRD on HD * Nephrology (Dr. Velazquez) on board-->help appreciated * Dialysis schedule is [facility], received full treatment on 01/02/17 prior to coming * Patient about where AV fistula was done to find out when sutures can be removed-> confirmed sutures can be removed; surgery residents have removed sutures * Renvela 2400mg PO TID 6) Low Back Pain * Lumbar-Spine xray (01/06/17): No evidence of acute fracture or subluxation. 7) Prophylactic Care * Chemical anticoagulation contraindicated secondary to thrombocytopenia * Pepcid 20 mg PO daily for GI ppx * Zofran 4 mg Q8 PRN nausea * PT/OT eval pending * Subacute rehab reval
[2017-01-07 16:58] LABS: UFH SRA RESULT Negative (Negative)
[2017-01-07] MEDS: Epoetin Alfa 10,000 unit/ml Dialysis IV SCH (18:18)
--- NOTE | 2017-01-07 21:20 | CP.PCM.PN ---
Subjective - Date & Time of Evaluation Date of Evaluation: 01/07/17 Time of Evaluation: 05:15 - Subjective Subjective: dictated Objective - Vital Signs/Intake and Output Vital Signs (last 24 hours): Temp Pulse Resp BP Pulse Ox 97.4 F L 83 18 153/64 H 95 01/07/17 20:00 01/07/17 20:00 01/07/17 20:00 01/07/17 20:00 01/07/17 20:00 - Medications Medications: Current Medications Cinacalcet (Sensipar) 90 mg PO DAILY [facility] Last Admin: 01/07/17 11:15 Dose: 90 mg Clonidine HCl (Catapres) 0.2 mg PO BID [facility] Last Admin: 01/07/17 21:04 Dose: 0.2 mg Epoetin Dewey (Procrit) 10,[address] [facility] Last Admin: 01/07/17 18:18 Dose: 10,000 unit Famotidine (Pepcid) 20 mg PO DAILY [facility] Last Admin: 01/07/17 11:14 Dose: 20 mg Nafcillin Sodium 2 gm/ Sodium (Chloride) 250 mls @ 250 mls/hr IVPB Q6 [facility] Last Admin: 01/07/17 21:05 Dose: Not Given Gentamicin Sulfate 80 mg/ (Sodium Chloride) 102 mls @ 100 mls/hr IVPB MWF [facility] Insulin Aspart (Novolog) 4 unit SC ACTID [facility] Last Admin: 01/07/17 20:51 Dose: Not Given Insulin Glargine (Lantus) 6 unit SC HS [facility] Last Admin: 01/06/17 22:00 Dose: Not Given Insulin Human Regular (Novolin R) 0 unit SC ACHS [facility] PRN Reason: Protocol Last Admin: 01/07/17 20:51 Dose: Not Given Labetalol HCl (Normodyne) 300 mg PO BID [facility] Last Admin: 01/07/17 21:05 Dose: 300 mg Minoxidil (Loniten) 10 mg PO BID [facility] Last Admin: 01/07/17 21:05 Dose: 10 mg Morphine Sulfate (Morphine) 1 mg IVP Q4 PRN PRN Reason: Pain, severe (8-10) Last Admin: 01/07/17 13:26 Dose: 1 mg Ondansetron HCl (Zofran Inj) 4 mg IVP Q8 PRN PRN Reason: Nausea/Vomiting Last Admin: 01/07/17 13:27 Dose: 4 mg Pregabalin (Lyrica) 50 mg PO DAILY [facility] Last Admin: 01/07/17 11:14 Dose: 50 mg Sevelamer Carbonate (Renvela) 2,400 mg PO TID [facility] Last Admin: 01/07/17 21:08 Dose: 2,400 mg - Labs Labs: 01/07/17 08:15 01/07/17 08:15 APTT 30 SECONDS (21-34) 01/03/17 05:14
[2017-01-07] MEDS: (Lantus) Insulin Glargine, Recombinant SC SCH (22:35)
--- NOTE | 2017-01-08 02:27 | PN ---
SUBJECTIVE: She was getting her dialysis done. The dialysis nurse has done one culture through the site. She says there is no problem, but there is a metal stand and she has to break it hard to get into it. She was also suggesting that maybe we can do a catheter for sometime to take the offloader with this new stand which was placed so that it can heal first and get better. She says she has very minimal cough. Denies any sputum production. Denied any shortness of breath now as she is having dialysis done. PHYSICAL EXAMINATION VITAL SIGNS: T-max is 97.4, pulse is 83, blood pressure 153/64, respirations are 18. She is awake and alert. HEENT: Head is atraumatic. NECK: Supple. LUNGS: Clear. No crackles or rales heard. HEART: S1 and S2, regular. ABDOMEN: Soft and nontender. No guarding. No rigidity present. EXTREMITIES: Have no edema. Her right arm has a fistula, and she is getting dialysis done. LABORATORY DATA: Labs are noted. Labs show that white count is 4.8, hemoglobin 8.7, hematocrit 26.7, and platelet count is 80. Sodium is 135, potassium is 5.6, chloride is 91, CO2 is 24, creatinine is 9.3, but she is a dialysis patient. Serology came out influenza group B is negative. She has very minimal symptoms of pneumonia except findings would have been secondary to failure in a renal patient, but micro-mccloud her cultures have been positive. From , has positive GPC's and blood cultures have come out positive of methicillin-sensitive staph aureus, hence I am going to change the antibiotic to nafcillin and gentamicin; however, we need to monitor her liver enzymes, as they are not too good, and we will need close monitoring as she has staph persisting. and we will also at this time get a Ceretec scan done, as I think the fistula site may be infected and is still functioning on treatment and the need to discuss with the renal whether to give it a break or to continue treatment and give antibiotics, but nafcillin will be IV, not at the site of the fistula. We will follow, also need to check the echo to rule out any endocarditis. Twyla Tesfaye MD [facility] # [id number]
--- NOTE | 2017-01-08 09:59 | CP.PCM.PN ---
Subjective - Date & Time of Evaluation Date of Evaluation: 01/08/17 Time of Evaluation: 09:58 - Subjective Subjective: seen and examined no complaints, having lunch. chronic pain avf for hd access Objective - Vital Signs/Intake and Output Vital Signs (last 24 hours): Temp Pulse Resp BP Pulse Ox 98.1 F 78 18 126/60 98 01/08/17 07:45 01/08/17 07:45 01/08/17 07:45 01/08/17 07:45 01/08/17 07:45 Intake and Output: 01/08/17 01/08/17 06:59 18:59 Intake Total 400 Balance 400 - Medications Medications: Current Medications Cinacalcet (Sensipar) 90 mg PO DAILY [facility] Last Admin: 01/07/17 11:15 Dose: 90 mg Clonidine HCl (Catapres) 0.2 mg PO BID [facility] Last Admin: 01/07/17 21:04 Dose: 0.2 mg Epoetin Dewey (Procrit) 10,000 unit IV MWF [facility] Last Admin: 01/07/17 18:18 Dose: 10,000 unit Famotidine (Pepcid) 20 mg PO DAILY [facility] Last Admin: 01/07/17 11:14 Dose: 20 mg Nafcillin Sodium 2 gm/ Sodium (Chloride) 250 mls @ 250 mls/hr IVPB Q6 [facility] Last Admin: 01/08/17 06:55 Dose: 250 mls/hr Gentamicin Sulfate 80 mg/ (Sodium Chloride) 102 mls @ 100 mls/hr IVPB MWF [facility] Insulin Aspart (Novolog) 4 unit SC ACTID [facility] Last Admin: 01/07/17 20:51 Dose: Not Given Insulin Glargine (Lantus) 6 unit SC HS [facility] Last Admin: 01/07/17 22:35 Dose: 6 units Insulin Human Regular (Novolin R) 0 unit SC ACHS [facility] PRN Reason: Protocol Last Admin: 01/07/17 22:26 Dose: Not Given Labetalol HCl (Normodyne) 300 mg PO BID [facility] Last Admin: 01/07/17 21:05 Dose: 300 mg Minoxidil (Loniten) 10 mg PO BID [facility] Last Admin: 01/07/17 21:05 Dose: 10 mg Morphine Sulfate (Morphine) 1 mg IVP Q4 PRN PRN Reason: Pain, severe (8-10) Last Admin: 01/07/17 13:26 Dose: 1 mg Ondansetron HCl (Zofran Inj) 4 mg IVP Q8 PRN PRN Reason: Nausea/Vomiting Last Admin: 01/07/17 13:27 Dose: 4 mg Pregabalin (Lyrica) 50 mg PO DAILY [facility] Last Admin: 01/07/17 11:14 Dose: 50 mg Sevelamer Carbonate (Renvela) 2,400 mg PO TID [facility] Last Admin: 01/07/17 21:08 Dose: 2,400 mg - Labs Labs: 01/07/17 08:15 01/07/17 08:15 APTT 30 SECONDS (21-34) 01/03/17 05:14 - Constitutional Appears: Non-toxic, No Acute Distress - Eye Exam Eye Exam: Normal appearance - ENT Exam ENT Exam: Mucous Membranes Moist, Normal Exam - Neck Exam Neck Exam: Normal Inspection - Respiratory Exam Respiratory Exam: Clear to Ausculation Bilateral, NORMAL BREATHING PATTERN - Cardiovascular Exam Cardiovascular Exam: REGULAR RHYTHM - GI/Abdominal Exam GI & Abdominal Exam: Distended, Soft - Extremities Exam Extremities Exam: Normal Inspection - Neurological Exam Neurological Exam: Alert, Awake Assessment and Plan (1) ESRD (end stage renal disease) on dialysis Status: Acute (2) Fever Status: Acute (3) Hypertensive chronic kidney disease with stage 5 chronic kidney disease or end stage renal disease Status: Acute (4) MSSA (methicillin susceptible Staphylococcus aureus) septicemia Status: Acute (5) Back pain Status: Acute - Assessment and Plan (Free Text) Assessment: persistent bacteremia. consider VAN antibiotics hd mwf
[2017-01-08] MEDS: (Novolin R) Insulin Human Regular 100 units/ml vial SC SCH ×4 (10:13→22:00)
[2017-01-08] MEDS: Labetalol Hydrochloride 300 mg Tab PO SCH ×2 (10:13→18:12)
[2017-01-08] MEDS: (Novolog) Insulin Aspart, Recombinant 100 u/ml 10 ml vial SC SCH ×3 (10:13→18:13)
--- NOTE | 2017-01-08 10:57 | CP.PCM.PN ---
<Hemalatha Bean - Last Filed: 01/08/17 16:29> Subjective - Date & Time of Evaluation Date of Evaluation: 01/08/17 Time of Evaluation: 10:57 - Subjective Subjective: Patient was seen and examined at bed side. Patient resting comfortably in bed and has no new complaints at this time. Patient states she was more comfortable than the previous night. The body aches have resolved. Patient still reporting difficulty hearing from both ears and feels as they are clogged. The numbness and tingling in her hand and fingers has improved. Patient denies headache/ dizziness/cp/sob/abd pain/f/c/n/v/d. Objective - Vital Signs/Intake and Output Vital Signs (last 24 hours): Temp Pulse Resp BP Pulse Ox 98.1 F 78 18 126/60 98 01/08/17 07:45 01/08/17 07:45 01/08/17 07:45 01/08/17 07:45 01/08/17 07:45 Intake and Output: 01/08/17 01/08/17 06:59 18:59 Intake Total 400 Balance 400 - Medications Medications: Current Medications Cinacalcet (Sensipar) 90 mg PO DAILY [facility] Last Admin: 01/08/17 10:14 Dose: 90 mg Clonidine HCl (Catapres) 0.2 mg PO BID [facility] Last Admin: 01/08/17 10:12 Dose: 0.2 mg Epoetin Dewey (Procrit) 10,000 unit IV MWF [facility] Last Admin: 01/07/17 18:18 Dose: 10,000 unit Famotidine (Pepcid) 20 mg PO DAILY [facility] Last Admin: 01/08/17 10:14 Dose: 20 mg Nafcillin Sodium 2 gm/ Sodium (Chloride) 250 mls @ 250 mls/hr IVPB Q6 [facility] Last Admin: 01/08/17 06:55 Dose: 250 mls/hr Gentamicin Sulfate 80 mg/ (Sodium Chloride) 102 mls @ 100 mls/hr IVPB MWF [facility] Insulin Aspart (Novolog) 4 unit SC ACTID [facility] Last Admin: 01/08/17 10:13 Dose: 4 unit Insulin Glargine (Lantus) 6 unit SC HS [facility] Last Admin: 01/07/17 22:35 Dose: 6 units Insulin Human Regular (Novolin R) 0 unit SC ACHS [facility] PRN Reason: Protocol Last Admin: 01/08/17 10:13 Dose: 1 unit Labetalol HCl (Normodyne) 300 mg PO BID [facility] Last Admin: 01/08/17 10:13 Dose: 300 mg Minoxidil (Loniten) 10 mg PO BID [facility] Last Admin: 01/08/17 10:12 Dose: 10 mg Morphine Sulfate (Morphine) 1 mg IVP Q4 PRN PRN Reason: Pain, severe (8-10) Last Admin: 01/07/17 13:26 Dose: 1 mg Ondansetron HCl (Zofran Inj) 4 mg IVP Q8 PRN PRN Reason: Nausea/Vomiting Last Admin: 01/07/17 13:27 Dose: 4 mg Pregabalin (Lyrica) 50 mg PO DAILY [facility] Last Admin: 01/08/17 10:13 Dose: 50 mg Sevelamer Carbonate (Renvela) 2,400 mg PO TID [facility] Last Admin: 01/08/17 10:14 Dose: 2,400 mg - Labs Labs: 01/07/17 08:15 01/07/17 08:15 APTT 30 SECONDS (21-34) 01/03/17 05:14 - Constitutional Appears: Non-toxic, No Acute Distress - Head Exam Head Exam: NORMAL INSPECTION Additional comments: hirsutism - Eye Exam Eye Exam: EOMI - ENT Exam ENT Exam: Mucous Membranes Moist - Respiratory Exam Respiratory Exam: Clear to Ausculation Bilateral, NORMAL BREATHING PATTERN - Cardiovascular Exam Cardiovascular Exam: REGULAR RHYTHM, +S1, +S2, Murmur (CLIFFORD) - GI/Abdominal Exam GI & Abdominal Exam: Soft, Normal Bowel Sounds. absent: Tenderness - Extremities Exam Extremities Exam: Normal Inspection Additional comments: AV fistula site sutures removed - Neurological Exam Neurological Exam: Alert, Awake - Psychiatric Exam Psychiatric exam: Normal Affect, Normal Mood - Skin Skin Exam: Dry, Intact, Normal Color, Warm Assessment and Plan - Assessment and Plan (Free Text) Assessment: Sepsis, Pneumonia, MSSA bacteremia * Criteria: febrile, leukocytosis; secondary to pneumonia; Lactate acid: 1.1--> code sepsis not called in light of normal lactate * CXR - Prominent ill-defined bibasilar airspace opacities * CTA - No definite CT evidence of PE. Mosaic pattern of lung parenchyma, nonspecific. DDX: Air-trapping, interstitial edema, interstitial pneumonia, interstitial lung disease. Clinical correlation is needed. Probable bibasilar atelectasis. Superimposed pneumonia is not excluded. Heterogeneous thyroid. Follow up as clinically warranted * Infectious Disease (Dr. Tesfaye) on the case-->help appreciated * see Abx below * F/U Ceretec Scan for possible AV fistula as site of infection (01/08) * Nephrology (Dr. Velazquez) on the case-->help appreciated * Blood Culture (01/02/17): Staph Aureus X2-->Sensitive to Rocephin and Vancomycin * Throat Culture (01/03/17): No beta Strep group A isolated * f/u echo (01/04/17) - awaiting read * Procalcitonin: 51.54--->ordered for procalcitonin tomorrow * Repeat Blood cultures (01/06): one showing gram positive cocci (prelim) and the other with no growth x48h * IV Abx: * Nafcillin 2g IV Q6 (started 01/07) for MSSA * Gentamicin Sulfate 80mg IV MWF (01/03/17) - after each dialysis * discontinued Vancomycin 1gram IV MWF (started 01/07/17) and Rocephin 1 gram IV Q daily (started 01/03/17) LE Pain * ordered for arterial and venous duplex low suspicion for DVT/arterial problems - negative Elevated LFTs * not present on admission * Possible 2/2 abx * Monitor and f/u with ID about choice of abx Uncontrolled diabetes * Started on Home Insulin regiment Lantus 6 units SC HS; 4 units SC ACTID * Lyrica 50mg PO daily * f/u [id number] Thrombocytopenia * Heme/Onc (Dr. Rodriguez) - recs appreciated Hypertension * Minoxidil 10 mg PO BID * Clonidine 0.2 mg PO BID * Labetalol 300mg PO BID * ESRD on dialysis * monitor vital signs * f/u carotid doppler for swishing sound patient hearing in ears - negative ESRD on HD * Nephrology (Dr. Velazquez) on board-->help appreciated * Dialysis schedule is MWF, received full treatment on 01/02/17 prior to coming * Patient should get Gentamycin 80 mg after each dialysis treatment * Renvela 2400mg PO TID * Sutures removed from HD site 01/07 (contacted where they were placed and confirmed removal date) Low Back Pain * ordered for L-S spine xray Constipation * Dulcalax given (01/07) Prophylactic Care * Chemical anticoagulation contraindicated secondary to thrombocytopenia * Pepcid 20 mg PO daily for GI ppx * Zofran 4 mg Q8 PRN nausea * PT/OT eval <Rosendo Fofana - Last Filed: 01/08/17 19:26> Objective - Vital Signs/Intake and Output Vital Signs (last 24 hours): Temp Pulse Resp BP Pulse Ox 97.8 F 73 20 115/64 95 01/08/17 16:02 01/08/17 17:00 01/08/17 16:02 01/08/17 16:02 01/08/17 16:02 - Medications Medications: Current Medications Cinacalcet (Sensipar) 90 mg PO DAILY [facility] Last Admin: 01/08/17 10:14 Dose: 90 mg Clonidine HCl (Catapres) 0.2 mg PO BID [facility] Last Admin: 01/08/17 18:13 Dose: 0.2 mg Epoetin Dewey (Procrit) 10,000 unit IV MWF [facility] Last Admin: 01/07/17 18:18 Dose: 10,000 unit Famotidine (Pepcid) 20 mg PO DAILY [facility] Last Admin: 01/08/17 10:14 Dose: 20 mg Nafcillin Sodium 2 gm/ Sodium (Chloride) 250 mls @ 250 mls/hr IVPB Q6 [facility] Last Admin: 01/08/17 18:13 Dose: 250 mls/hr Gentamicin Sulfate 80 mg/ (Sodium Chloride) 102 mls @ 100 mls/hr IVPB MWF [facility] Insulin Aspart (Novolog) 4 unit SC ACTID [facility] Last Admin: 01/08/17 18:13 Dose: Not Given Insulin Glargine (Lantus) 6 unit SC HS [facility] Last Admin: 01/07/17 22:35 Dose: 6 units Insulin Human Regular (Novolin R) 0 unit SC ACHS [facility] PRN Reason: Protocol Last Admin: 01/08/17 18:13 Dose: Not Given Labetalol HCl (Normodyne) 300 mg PO BID [facility] Last Admin: 01/08/17 18:12 Dose: 300 mg Minoxidil (Loniten) 10 mg PO BID [facility] Last Admin: 01/08/17 18:12 Dose: 10 mg Morphine Sulfate (Morphine) 1 mg IVP Q4 PRN PRN Reason: Pain, severe (8-10) Last Admin: 01/07/17 13:26 Dose: 1 mg Ondansetron HCl (Zofran Inj) 4 mg IVP Q8 PRN PRN Reason: Nausea/Vomiting Last Admin: 01/07/17 13:27 Dose: 4 mg Pregabalin (Lyrica) 50 mg PO DAILY [facility] Last Admin: 01/08/17 10:13 Dose: 50 mg Sevelamer Carbonate (Renvela) 2,400 mg PO TID [facility] Last Admin: 01/08/17 18:13 Dose: Not Given - Labs Labs: 01/08/17 14:38 01/08/17 14:38 APTT 30 SECONDS (21-34) 01/03/17 05:14 Attending/Attestation - Attestation I have personally seen and examined this patient.: Yes I have fully participated in the care of the patient.: Yes I have reviewed all pertinent clinical information, including history, physical exam and plan: Yes Notes (Text): 01/08/17 19:21 Patient was seen and examined at 4:30 PM 01/08/17 Exam and Assessment and Plan were thoroughly gone over with the Resident. Please also note on ROS: Does not urinate but every now and then a small amount of urine leaks out Please also note on Exam: Right Arm thrill is present at site of AVF. Please also note on Assessment and Plan: Anemia of Chronic Disease: Likely secondary to ESRD on HD M-W-f LBP: Lumbar Spine X Ray 01/06/17 did not show any evidence of acute fracture or subluxation. F/U Echocardiogram Report F/U Ceretec Scan to be done after HD 01/09/17: Blood HCG has been ordered for the Ceretec Scan. Rosendo Fofana D.O.
[2017-01-08 12:27] LABS: BASO # 0.1 K/uL (0.0-0.2); BASO % 1.1 % (0.0-2.0); EOS # 0.2 K/uL (0.0-0.7); EOS % 4.8 % (0.0-4.0); HEMATOCRIT 29.1 % (34.0-47.0); LYMPH # 1.5 K/uL (1.0-4.3); LYMPH % 33.4 % (20.0-40.0); MEAN CELL VOLUME 91.8 fL (81.0-99.0); MEAN CORPUSCULAR HEMOGLOBIN 30.4 pg (27.0-31.0); MEAN CORPUSCULAR HGB CONC 33.2 g/dL (33.0-37.0); MONO # 0.6 K/uL (0.0-0.8); MONO % 13.5 % (0.0-10.0); RED CELL DISTRIBUTION WIDTH 14.6 % (11.5-14.5); WHITE BLOOD COUNT 4.5 K/uL (4.8-10.8)
[2017-01-08 12:52] LABS: ALB/GLOB RATIO 1.2 (1.0-2.1); BILIRUBIN,TOTAL 1.3 mg/dL (0.2-1.3); TOTAL PROTEIN 7.9 g/dL (6.3-8.3)
[2017-01-08 12:53] LABS: CALCIUM 7.9 mg/dl (8.6-10.4); MAGNESIUM 2.3 mg/dL (1.6-2.3); PHOSPHOROUS 3.5 mg/dL (2.5-4.5)
[2017-01-08 14:47] LABS: BASO % 1.1 % (0.0-2.0); EOS # 0.2 K/uL (0.0-0.7); EOS % 4.7 % (0.0-4.0); HEMATOCRIT 28.2 % (34.0-47.0); LYMPH # 1.3 K/uL (1.0-4.3); LYMPH % 34.5 % (20.0-40.0); MEAN CELL VOLUME 91.4 fL (81.0-99.0); MEAN CORPUSCULAR HEMOGLOBIN 30.3 pg (27.0-31.0); MEAN CORPUSCULAR HGB CONC 33.2 g/dL (33.0-37.0); MEAN PLATELET VOLUME 11.4 fL (7.2-11.7); MONO # 0.6 K/uL (0.0-0.8); MONO % 14.6 % (0.0-10.0); RED CELL DISTRIBUTION WIDTH 14.6 % (11.5-14.5); WHITE BLOOD COUNT 3.8 K/uL (4.8-10.8)
[2017-01-08 15:01] LABS: POTASSIUM 5.4 mmol/L (3.6-5.2)
[2017-01-08 15:03] LABS: ALB/GLOB RATIO 1.2 (1.0-2.1); BILIRUBIN,TOTAL 1.4 mg/dL (0.2-1.3); PHOSPHOROUS 3.6 mg/dL (2.5-4.5); TOTAL PROTEIN 7.5 g/dL (6.3-8.3)
[2017-01-08 15:04] LABS: CALCIUM 7.5 mg/dl (8.6-10.4); MAGNESIUM 2.3 mg/dL (1.6-2.3)
[2017-01-08] MEDS: (Lantus) Insulin Glargine, Recombinant SC SCH (22:13)
--- NOTE | 2017-01-08 22:42 | CP.PCM.PN ---
Subjective - Date & Time of Evaluation Date of Evaluation: 01/08/17 Time of Evaluation: 03:00 - Subjective Subjective: dictated Objective - Vital Signs/Intake and Output Vital Signs (last 24 hours): Temp Pulse Resp BP Pulse Ox 97.8 F 75 20 115/64 95 01/08/17 16:02 01/08/17 20:00 01/08/17 16:02 01/08/17 16:02 01/08/17 16:02 - Medications Medications: Current Medications Cinacalcet (Sensipar) 90 mg PO DAILY [facility] Last Admin: 01/08/17 10:14 Dose: 90 mg Clonidine HCl (Catapres) 0.2 mg PO BID [facility] Last Admin: 01/08/17 18:13 Dose: 0.2 mg Epoetin Dewey (Procrit) 10,000 unit IV [facility] Last Admin: 01/07/17 18:18 Dose: 10,000 unit Famotidine (Pepcid) 20 mg PO DAILY [facility] Last Admin: 01/08/17 10:14 Dose: 20 mg Nafcillin Sodium 2 gm/ Sodium (Chloride) 250 mls @ 250 mls/hr IVPB Q6 [facility] Last Admin: 01/08/17 18:13 Dose: 250 mls/hr Gentamicin Sulfate 80 mg/ (Sodium Chloride) 102 mls @ 100 mls/hr IVPB [facility] Insulin Aspart (Novolog) 4 unit SC ACTID [facility] Last Admin: 01/08/17 18:13 Dose: Not Given Insulin Glargine (Lantus) 6 unit SC HS [facility] Last Admin: 01/08/17 22:13 Dose: Not Given Insulin Human Regular (Novolin R) 0 unit SC ACHS [facility] PRN Reason: Protocol Last Admin: 01/08/17 22:00 Dose: Not Given Labetalol HCl (Normodyne) 300 mg PO BID [facility] Last Admin: 01/08/17 18:12 Dose: 300 mg Minoxidil (Loniten) 10 mg PO BID [facility] Last Admin: 01/08/17 18:12 Dose: 10 mg Morphine Sulfate (Morphine) 1 mg IVP Q4 PRN PRN Reason: Pain, severe (8-10) Last Admin: 01/08/17 21:05 Dose: 1 mg Ondansetron HCl (Zofran Inj) 4 mg IVP Q8 PRN PRN Reason: Nausea/Vomiting Last Admin: 01/07/17 13:27 Dose: 4 mg Pregabalin (Lyrica) 50 mg PO DAILY [facility] Last Admin: 01/08/17 10:13 Dose: 50 mg Sevelamer Carbonate (Renvela) 2,400 mg PO TID [facility] Last Admin: 01/08/17 18:13 Dose: Not Given - Labs Labs: 01/08/17 14:38 01/08/17 14:38 APTT 30 SECONDS (21-34) 01/03/17 05:14
--- NOTE | 2017-01-09 03:09 | PN ---
DATE: SUBJECTIVE: The patient was feeling better. She denies any cough and cold and she is improving. She does not complain of any pain on the right arm graft, even though the graft appears to be little swollen, but she recently had a stent placed. PHYSICAL EXAMINATION: VITAL SIGNS: Temperature is 97.8, pulse is 75, blood pressure 115/64, respirations are 20. HEENT: Head is atraumatic, normocephalic. NECK: Supple. LUNGS: Clear. No crackles or rales present. HEART: S1 and S2 is regular. ABDOMEN: Soft and nontender. EXTREMITIES: Have no edema, clubbing, or cyanosis. She did come with Staphylococcus aureus septicemia. The cultures are getting negative now; however, source of this is not known whether this is the fistula or the pneumonia. However, she did not have serious pneumonia, serious respiratory symptoms it seems. She does say that she has had pneumonia in the past. Labs show white count is 3.8, hemoglobin 9.4, hematocrit 28.2, and platelet count is 113. Sodium is 137, potassium remains 5.4. Liver enzymes; AST 72, ALT is 108, and alkaline phosphatase is 290. So the liver enzymes remain high and so we will monitor those. However because the patient is on nafcillin at this time and [facility] which I wanted to do to see if the stent lights up at fistula site, and she is a dialysis patient with pneumonia and end-stage renal disease, Staphylococcus aureus septicemia. Twyla Tesfaye MD
--- NOTE | 2017-01-09 07:24 | CP.PCM.PN ---
<Hemalatha Bean - Last Filed: 01/09/17 19:25> Subjective - Date & Time of Evaluation Date of Evaluation: 01/09/17 Time of Evaluation: 07:24 - Subjective Subjective: Patieint seen and examined while in dialysis. Patient doing well with no new complaints at this time. Patient says she is still having the swishing noises in her ears that gets worse when her BP is elevated or when her blood glucose is high. She admits to occasional pressure in her chest but says she is not having it currently. Patient is no longer constipated and says she had a BM yesterday. Patient denies CP, sinus congestion, fever, chills, AP, N/V/D/C. Objective - Vital Signs/Intake and Output Vital Signs (last 24 hours): Temp Pulse Resp BP Pulse Ox 97.6 F 86 20 94/51 L 95 01/08/17 23:30 01/09/17 01:00 01/08/17 23:30 01/08/17 23:30 01/08/17 23:30 Intake and Output: 01/09/17 01/09/17 06:59 18:59 Intake Total 500 Balance 500 - Medications Medications: Current Medications Cinacalcet (Sensipar) 90 mg PO DAILY [facility] Last Admin: 01/08/17 10:14 Dose: 90 mg Clonidine HCl (Catapres) 0.2 mg PO BID [facility] Last Admin: 01/08/17 18:13 Dose: 0.2 mg Epoetin Dewey (Procrit) 10,000 unit IV [facility] Last Admin: 01/07/17 18:18 Dose: 10,000 unit Famotidine (Pepcid) 20 mg PO DAILY [facility] Last Admin: 01/08/17 10:14 Dose: 20 mg Nafcillin Sodium 2 gm/ Sodium (Chloride) 250 mls @ 250 mls/hr IVPB Q6 [facility] Last Admin: 01/09/17 05:24 Dose: 250 mls/hr Gentamicin Sulfate 80 mg/ (Sodium Chloride) 102 mls @ 100 mls/hr [facility] Insulin Aspart (Novolog) 4 unit SC ACTID [facility] Last Admin: 01/08/17 18:13 Dose: Not Given Insulin Glargine (Lantus) 6 unit SC HS [facility] Last Admin: 01/08/17 22:13 Dose: Not Given Insulin Human Regular (Novolin R) 0 unit SC ACHS [facility] PRN Reason: Protocol Last Admin: 01/08/17 22:00 Dose: Not Given Labetalol HCl (Normodyne) 300 mg PO BID [facility] Last Admin: 01/08/17 18:12 Dose: 300 mg Minoxidil (Loniten) 10 mg PO BID [facility] Last Admin: 01/08/17 18:12 Dose: 10 mg Morphine Sulfate (Morphine) 1 mg IVP Q4 PRN PRN Reason: Pain, severe (8-10) Last Admin: 01/08/17 21:05 Dose: 1 mg Ondansetron HCl (Zofran Inj) 4 mg IVP Q8 PRN PRN Reason: Nausea/Vomiting Last Admin: 01/07/17 13:27 Dose: 4 mg Pregabalin (Lyrica) 50 mg PO DAILY [facility] Last Admin: 01/08/17 10:13 Dose: 50 mg Sevelamer Carbonate (Renvela) 2,400 mg PO TID [facility] Last Admin: 01/08/17 18:13 Dose: Not Given - Labs Labs: 01/08/17 14:38 01/08/17 14:38 APTT 30 SECONDS (21-34) 01/03/17 05:14 - Constitutional Appears: Non-toxic, No Acute Distress - Head Exam Head Exam: ATRAUMATIC, NORMAL INSPECTION Additional comments: Hirsutism - Eye Exam Eye Exam: EOMI - ENT Exam ENT Exam: Mucous Membranes Moist - Respiratory Exam Respiratory Exam: Clear to Ausculation Bilateral, NORMAL BREATHING PATTERN - Cardiovascular Exam Cardiovascular Exam: REGULAR RHYTHM, +S1, +S2, Murmur (CL[place]ORD ) - GI/Abdominal Exam GI & Abdominal Exam: Soft, Normal Bowel Sounds. absent: Tenderness - Extremities Exam Extremities Exam: Normal Inspection. absent: Tenderness - Neurological Exam Neurological Exam: Alert, Awake - Psychiatric Exam Psychiatric exam: Normal Affect, Normal Mood - Skin Skin Exam: Dry, Intact, Normal Color, Warm Assessment and Plan - Assessment and Plan (Free Text) Assessment: Sepsis, Pneumonia, MSSA bacteremia * Criteria: febrile, leukocytosis; secondary to pneumonia; Lactate acid: 1.1--> code sepsis not called in light of normal lactate * CXR - Prominent ill-defined bibasilar airspace opacities * CTA - No definite CT evidence of PE. Mosaic pattern of lung parenchyma, nonspecific. DDX: Air-trapping, interstitial edema, interstitial pneumonia, interstitial lung disease. Clinical correlation is needed. Probable bibasilar atelectasis. Superimposed pneumonia is not excluded. Heterogeneous thyroid. Follow up as clinically warranted * Infectious Disease (Dr. Tesfaye) on the case-->help appreciated * see Abx below * F/U Ceretec Scan for possible AV fistula as site of infection (01/09) * Nephrology (Dr. Velazquez) on the case-->help appreciated * Blood Culture (01/02/17): Staph Aureus X2-->Sensitive to Rocephin and Vancomycin * Throat Culture (01/03/17): No beta Strep group A isolated * f/u echo (01/04/17) - awaiting read * Procalcitonin: 51.54--->ordered for procalcitonin tomorrow * Repeat Blood cultures (01/06): one showing Staph aureus and the other with no growth x3days * BC during dialysis (01/07): no growth x24h * F/U BC on 01/12 * IV Abx: * Clindamycin * discontinued Vancomycin 1gram IV MWF (started 01/07/17) and Rocephin 1 gram IV Q daily (started 01/03/17) * Ototoxicity: Discontinued Nafcillin 2g IV Q6 (started 01/07) for MSSA and Gentamicin Sulfate 80mg IV MWF (01/03/17) - after each dialysis LE Pain * ordered for arterial and venous duplex low suspicion for DVT/arterial problems - negative Elevated LFTs * not present on admission * Possible 2/2 abx * Monitor and f/u with ID about choice of abx Uncontrolled diabetes * Started on Home Insulin regiment Lantus 6 units SC HS; 4 units SC ACTID * Lyrica 50mg PO daily * f/u [id number] Thrombocytopenia * Heme/Onc (Dr. Rodriguez) - recs appreciated Hypertension * Minoxidil 10 mg PO BID * Clonidine 0.2 mg PO BID * Labetalol 300mg PO BID * ESRD on dialysis * monitor vital signs * f/u carotid doppler for swishing sound patient hearing in ears - negative ESRD on HD * Nephrology (Dr. Velazquez) on board-->help appreciated * Dialysis schedule is MWF, received full treatment on 01/02/17 prior to coming * Patient should get Gentamycin 80 mg after each dialysis treatment * Renvela 2400mg PO TID * Sutures removed from HD site 01/07 (contacted where they were placed and confirmed removal date) Low Back Pain * ordered for L-S spine xray Constipation * Dulcalax given (01/07) Hirsutism * likely side effect of minoxidil Prophylactic Care * Chemical anticoagulation contraindicated secondary to thrombocytopenia * Pepcid 20 mg PO daily for GI ppx * Zofran 4 mg Q8 PRN nausea * PT/OT eval <Rosendo Fofana - Last Filed: 01/09/17 20:22> Objective - Vital Signs/Intake and Output Vital Signs (last 24 hours): Temp Pulse Resp BP Pulse Ox 98.2 F 88 20 113/67 95 01/09/17 15:55 01/09/17 15:55 01/09/17 15:55 01/09/17 15:55 01/09/17 15:55 Intake and Output: 01/09/17 01/10/17 18:59 06:59 Intake Total 200 Balance 200 - Medications Medications: Current Medications Cinacalcet (Sensipar) 90 mg PO DAILY [facility] Last Admin: 01/09/17 17:55 Dose: 90 mg Clonidine HCl (Catapres) 0.2 mg PO BID [facility] Last Admin: 01/09/17 17:54 Dose: 0.2 mg Epoetin Dewey (Procrit) 10,000 unit IV MWF [facility] Last Admin: 01/09/17 10:53 Dose: 10,000 unit Famotidine (Pepcid) 20 mg PO DAILY [facility] Last Admin: 01/09/17 17:54 Dose: 20 mg Clindamycin Phosphate 600 mg/ (Sodium Chloride) 54 mls @ 100 mls/hr IVPB Q8H [facility] Last Admin: 01/09/17 15:15 Dose: Not Given Insulin Aspart (Novolog) 4 unit SC ACTID [facility] Last Admin: 01/09/17 18:09 Dose: Not Given Insulin Glargine (Lantus) 6 unit SC HS [facility] Last Admin: 01/08/17 22:13 Dose: Not Given Insulin Human Regular (Novolin R) 0 unit SC ACHS [facility] PRN Reason: Protocol Last Admin: 09/20/17 18:05 Dose: 1 unit Labetalol HCl (Normodyne) 300 mg PO BID [facility] Last Admin: 01/09/17 17:55 Dose: 300 mg Minoxidil (Loniten) 10 mg PO BID [facility] Last Admin: 01/09/17 17:55 Dose: 10 mg Morphine Sulfate (Morphine) 1 mg IVP Q4 PRN PRN Reason: Pain, severe (8-10) Last Admin: 01/08/17 21:05 Dose: 1 mg Ondansetron HCl (Zofran Inj) 4 mg IVP Q8 PRN PRN Reason: Nausea/Vomiting Last Admin: 01/07/17 13:27 Dose: 4 mg Pregabalin (Lyrica) 50 mg PO DAILY [facility] Last Admin: 01/09/17 17:55 Dose: 50 mg Saccharomyces Boulardii (Florastor) 250 mg PO BID [facility] Last Admin: 01/09/17 17:54 Dose: 250 mg Sevelamer Carbonate (Renvela) 2,400 mg PO TID [facility] Last Admin: 01/09/17 18:05 Dose: 2,400 mg - Labs Labs: 01/09/17 10:19 01/09/17 10:19 APTT 30 SECONDS (21-34) 01/03/17 05:14 Attending/Attestation - Attestation I have personally seen and examined this patient.: Yes I have fully participated in the care of the patient.: Yes I have reviewed all pertinent clinical information, including history, physical exam and plan: Yes Notes (Text): 01/09/17 20:20 Patient was seen and examined at 12:30 PM 01/09/17 in the HD [facility] on 3 tower Exam and Assessment and Plan were thoroughly gone over with the Resident. Please also note on ROS: Does not urinate but every now and then a small amount of urine leaks out Complains of bilateral ear lower hearing and tinnitus Please also note on Exam: Right Arm thrill is present at site of AVF. Please also note on Assessment and Plan: Anemia of Chronic Disease: Likely secondary to ESRD on HD M-W-f LBP: Lumbar Spine X Ray 01/06/17 did not show any evidence of acute fracture or subluxation. Staph aureus Bacteremia: as blood cultures on 01/02/17 and 01/06/17. Discontinued the Gentamycin because of Ototoxicity and discontinued Naficillin. Started patient on Clindamycin 600 mg IV Q8H based upon sensitivities. F/U Echocardiogram Report which is still pending F/U Ceretec Scan to be done after HD today 01/09/17 Rosendo Fofana D.O.
[2017-01-09] MEDS: (Novolog) Insulin Aspart, Recombinant 100 u/ml 10 ml vial SC SCH ×4 (08:35→18:09)
[2017-01-09] MEDS: (Novolin R) Insulin Human Regular 100 units/ml vial SC SCH ×4 (08:35→21:57)
[2017-01-09] MEDS ORDERED: EPOETIN ALFA 10,000 UNIT/ML ML IV SCH (09:00)
[2017-01-09 10:22] LABS: BASO # 0.1 K/uL (0.0-0.2); BASO % 0.8 % (0.0-2.0); EOS # 0.3 K/uL (0.0-0.7); EOS % 4.5 % (0.0-4.0); HEMATOCRIT 26.4 % (34.0-47.0); LYMPH # 1.4 K/uL (1.0-4.3); LYMPH % 23.5 % (20.0-40.0); MEAN CELL VOLUME 91.5 fL (81.0-99.0); MEAN CORPUSCULAR HEMOGLOBIN 30.4 pg (27.0-31.0); MEAN CORPUSCULAR HGB CONC 33.2 g/dL (33.0-37.0); MEAN PLATELET VOLUME 11.2 fL (7.2-11.7); MONO # 0.6 K/uL (0.0-0.8); MONO % 9.4 % (0.0-10.0)
[2017-01-09 10:31] LABS: POTASSIUM 5.3 mmol/L (3.6-5.2)
[2017-01-09 10:33] LABS: ALB/GLOB RATIO 1.3 (1.0-2.1); BILIRUBIN,TOTAL 1.6 mg/dL (0.2-1.3); TOTAL PROTEIN 7.3 g/dL (6.3-8.3)
[2017-01-09 10:34] LABS: CALCIUM 7.6 mg/dl (8.6-10.4); MAGNESIUM 2.3 mg/dL (1.6-2.3); PHOSPHOROUS 3.6 mg/dL (2.5-4.5)
[2017-01-09] MEDS: Epoetin Alfa 10,000 unit/ml Dialysis IV SCH (10:53)
[2017-01-09] MEDS: Labetalol Hydrochloride 300 mg Tab PO SCH ×2 (11:13→17:55)
--- NOTE | 2017-01-09 15:07 | CP.PCM.PN ---
Subjective - Date & Time of Evaluation Date of Evaluation: 01/09/17 Time of Evaluation: 15:05 - Subjective Subjective: stable dialysis today- UF 3600ml Afebrile now BP controlled no f, c, s, n, v, diarrhea, CPs on iv ABs for bacteremia Objective - Vital Signs/Intake and Output Vital Signs (last 24 hours): Temp Pulse Resp BP Pulse Ox 98.5 F 84 18 119/56 L 95 01/09/17 13:15 01/09/17 13:15 01/09/17 13:15 01/09/17 13:15 01/09/17 13:15 Intake and Output: 01/09/17 01/09/17 06:59 18:59 Intake Total 500 Balance 500 - Medications Medications: Current Medications Cinacalcet (Sensipar) 90 mg PO DAILY ON [facility] OF [facility] Last Admin: 01/09/17 11:14 Dose: Not Given Clonidine HCl (Catapres) 0.2 mg PO BID [facility] Last Admin: 01/09/17 11:13 Dose: Not Given Epoetin Dewey (Procrit) 10,000 unit IV MWF [facility] Last Admin: 01/09/17 10:53 Dose: 10,000 unit Famotidine (Pepcid) 20 mg PO DAILY [facility] Last Admin: 01/09/17 11:13 Dose: Not Given Clindamycin Phosphate 600 mg/ (Sodium Chloride) 54 mls @ 100 mls/hr IVPB Q8H ON LICENSE OF [facility] Insulin Aspart (Novolog) 4 unit SC ACTID ON [facility] OF [facility] Last Admin: 01/09/17 11:53 Dose: Not Given Insulin Glargine (Lantus) 6 unit SC HS [facility] Last Admin: 01/08/17 22:13 Dose: Not Given Insulin Human Regular (Novolin R) 0 unit SC ACHS [facility] PRN Reason: Protocol Last Admin: 01/09/17 11:53 Dose: Not Given Labetalol HCl (Normodyne) 300 mg PO BID [facility] Last Admin: 01/09/17 11:13 Dose: Not Given Minoxidil (Loniten) 10 mg PO BID [facility] Last Admin: 01/09/17 11:13 Dose: Not Given Morphine Sulfate (Morphine) 1 mg IVP Q4 PRN PRN Reason: Pain, severe (8-10) Last Admin: 01/08/17 21:05 Dose: 1 mg Ondansetron HCl (Zofran Inj) 4 mg IVP Q8 PRN PRN Reason: Nausea/Vomiting Last Admin: 01/07/17 13:27 Dose: 4 mg Pregabalin (Lyrica) 50 mg PO DAILY [facility] Last Admin: 01/09/17 11:13 Dose: Not Given Saccharomyces Boulardii (Florastor) 250 mg PO BID ON LICENSE OF [facility] Sevelamer Carbonate (Renvela) 2,400 mg PO TID ON [facility] OF [facility] Last Admin: 01/09/17 11:13 Dose: Not Given - Labs Labs: 01/09/17 10:19 01/09/17 10:19 APTT 30 SECONDS (21-34) 01/03/17 05:14 - Constitutional Appears: No Acute Distress, Chronically Ill - Head Exam Head Exam: ATRAUMATIC, NORMAL INSPECTION - Eye Exam Eye Exam: EOMI, Normal appearance - Neck Exam Neck Exam: Normal Inspection. absent: Tenderness - Respiratory Exam Respiratory Exam: Clear to Ausculation Bilateral, NORMAL BREATHING PATTERN - Cardiovascular Exam Cardiovascular Exam: REGULAR RHYTHM, +S1 - GI/Abdominal Exam GI & Abdominal Exam: Soft. absent: Tenderness - Extremities Exam Extremities Exam: Normal Inspection. absent: Tenderness - Neurological Exam Neurological Exam: Alert, CN II-XII Intact - Skin Skin Exam: Dry, Warm Assessment and Plan (1) Hypertensive chronic kidney disease with stage 5 chronic kidney disease or end stage renal disease Status: Acute (2) Heart failure, unspecified Status: Acute (3) ESRD (end stage renal disease) on dialysis Status: Acute (4) MSSA (methicillin susceptible Staphylococcus aureus) septicemia Status: Acute - Assessment and Plan (Free Text) Plan: Continue IV ABs Dialysis MWF Monitor BP
[2017-01-09] MEDS: Saccharomyces Boulardi 250 mg Cap PO SCH (17:54)
--- NOTE | 2017-01-09 18:44 | CARD ---
APPROVED REPORT EXAM: Two-dimensional and M-mode echocardiogram with Doppler and color Doppler. Other Information Quality : GoodRhythm : INDICATION FEVER R/O VEGETATION, POSITIVE BLOOD WORK RISK FACTORS Hypertension Diabetes M-Mode DIMENSIONS RVDd1.40 (2.1-3.2cm)Left Atrium (MM)4.56 (2.5-4.0cm) IVSd1.18 (0.7-1.1cm)Aortic Root1.88 (2.2-3.7cm) LVDd4.46 (4.0-5.6cm)Aortic Cusp Exc.1.15 (1.5-2.0cm) PWd1.25 (0.7-1.1cm)FS (%) 39 % LVDs2.70 (2.0-3.8cm)LVEF (%)70 (>50%) Mitral Valve MV E Atzdbwok306.3cm/sMV A Nhpfzxyc28.8cm/sE/A ratio1.7 TDI E/Lateral E'0.0E/Medial E'0.0 Tricuspid Valve TR Peak [id number]/sTR Peak Gr.[id number] LEFT VENTRICLE The left ventricle is normal size. There is mild concentric left ventricular hypertrophy. The left ventricular function is normal. The left ventricular ejection fraction is within the normal range. There is normal LV segmental wall motion. TISSUE DOPPLER NOT PERFORMED. CANNOT BE ACCURATELY ASSESSED. RIGHT VENTRICLE The right ventricle is normal size. There is normal right ventricular wall thickness. The right ventricular systolic function is normal. ATRIA The left atrium is mildly dilated. The right atrium size is normal. The interatrial septum is intact with no evidence for an atrial septal defect. AORTIC VALVE The aortic valve is normal in structure. No aortic regurgitation is present. There is no aortic valvular stenosis. MITRAL VALVE The mitral valve is normal in structure. There is no evidence of mitral valve prolapse. There is no mitral valve stenosis. Mitral regurgitation is trace to mild. TRICUSPID VALVE The tricuspid valve is normal in structure. There is mild tricuspid regurgitation. There is mild pulmonary hypertension. There is no tricuspid valve prolapse or vegetation. There is no tricuspid valve stenosis. PULMONIC VALVE The pulmonary valve is normal in structure. There is no pulmonic valvular regurgitation. There is no pulmonic valvular stenosis. GREAT VESSELS The aortic root is normal in size. The ascending aorta is normal in size. The IVC is normal in size and collapses >50% with inspiration. PERICARDIAL EFFUSION There is no pericardial effusion. There is no pleural effusion. <Conclusion> The left ventricular function is normal. There is mild concentric left ventricular hypertrophy. The left ventricular ejection fraction is within the normal range. TISSUE DOPPLER NOT PERFORMED. CANNOT BE ACCURATELY ASSESSED. NO VEGETATIONS NOTED ON ANY OF THE VALVES. There is mild tricuspid regurgitation. There is BORDERLINE pulmonary hypertension.
--- NOTE | 2017-01-09 21:14 | CP.PCM.PN ---
Subjective - Date & Time of Evaluation Date of Evaluation: 01/09/17 Time of Evaluation: 06:45 - Subjective Subjective: dictated Objective - Vital Signs/Intake and Output Vital Signs (last 24 hours): Temp Pulse Resp BP Pulse Ox 98.2 F 88 20 113/67 95 01/09/17 15:55 01/09/17 15:55 01/09/17 15:55 01/09/17 15:55 01/09/17 15:55 Intake and Output: 01/09/17 01/10/17 18:59 06:59 Intake Total 200 Balance 200 - Medications Medications: Current Medications Cinacalcet (Sensipar) 90 mg PO DAILY [facility] Last Admin: 01/09/17 17:55 Dose: 90 mg Clonidine HCl (Catapres) 0.2 mg PO BID [facility] Last Admin: 01/09/17 17:54 Dose: 0.2 mg Epoetin Dewey (Procrit) 10,000 unit IV MWF [facility] Last Admin: 01/09/17 10:53 Dose: 10,000 unit Famotidine (Pepcid) 20 mg PO DAILY [facility] Last Admin: 01/09/17 17:54 Dose: 20 mg Clindamycin Phosphate 600 mg/ (Sodium Chloride) 54 mls @ 100 mls/hr IVPB Q8H [facility] Last Admin: 01/09/17 20:49 Dose: 100 mls/hr Insulin Aspart (Novolog) 4 unit SC ACTID [facility] Last Admin: 01/09/17 18:09 Dose: Not Given Insulin Glargine (Lantus) 6 unit SC HS [facility] Last Admin: 01/08/17 22:13 Dose: Not Given Insulin Human Regular (Novolin R) 0 unit SC ACHS [facility] PRN Reason: Protocol Last Admin: 01/09/17 18:05 Dose: 1 unit Labetalol HCl (Normodyne) 300 mg PO BID [facility] Last Admin: 01/09/17 17:55 Dose: 300 mg Minoxidil (Loniten) 10 mg PO BID [facility] Last Admin: 01/09/17 17:55 Dose: 10 mg Morphine Sulfate (Morphine) 1 mg IVP Q4 PRN PRN Reason: Pain, severe (8-10) Last Admin: 01/08/17 21:05 Dose: 1 mg Ondansetron HCl (Zofran Inj) 4 mg IVP Q8 PRN PRN Reason: Nausea/Vomiting Last Admin: 01/09/17 20:48 Dose: 4 mg Pregabalin (Lyrica) 50 mg PO DAILY [facility] Last Admin: 01/09/17 17:55 Dose: 50 mg Saccharomyces Boulardii (Florastor) 250 mg PO BID [facility] Last Admin: 01/09/17 17:54 Dose: 250 mg Sevelamer Carbonate (Renvela) 2,400 mg PO TID [facility] Last Admin: 01/09/17 18:05 Dose: 2,400 mg - Labs Labs: 01/09/17 10:19 01/09/17 10:19 APTT 30 SECONDS (21-34) 01/03/17 05:14
[2017-01-09] MEDS: (Lantus) Insulin Glargine, Recombinant SC SCH (22:06)
[2017-01-10] MEDS: (Novolin R) Insulin Human Regular 100 units/ml vial SC SCH ×6 (07:15→21:26)
[2017-01-10 08:22] LABS: BASO # 0.1 K/uL (0.0-0.2); BASO % 1.1 % (0.0-2.0); EOS # 0.3 K/uL (0.0-0.7); EOS % 6.5 % (0.0-4.0); HEMATOCRIT 26.1 % (34.0-47.0); LYMPH # 1.6 K/uL (1.0-4.3); LYMPH % 35.3 % (20.0-40.0); MEAN CELL VOLUME 91.5 fL (81.0-99.0); MEAN CORPUSCULAR HEMOGLOBIN 30.5 pg (27.0-31.0); MEAN CORPUSCULAR HGB CONC 33.3 g/dL (33.0-37.0); MEAN PLATELET VOLUME 11.2 fL (7.2-11.7); MONO # 0.7 K/uL (0.0-0.8); MONO % 15.7 % (0.0-10.0); WHITE BLOOD COUNT 4.7 K/uL (4.8-10.8)
[2017-01-10] MEDS: (Novolog) Insulin Aspart, Recombinant 100 u/ml 10 ml vial SC SCH ×3 (08:25→17:40)
[2017-01-10 08:43] LABS: POTASSIUM 4.4 mmol/L (3.6-5.2)
[2017-01-10 08:45] LABS: ALB/GLOB RATIO 1.2 (1.0-2.1); BILIRUBIN,TOTAL 0.9 mg/dL (0.2-1.3); TOTAL PROTEIN 7.5 g/dL (6.3-8.3)
[2017-01-10 08:46] LABS: CALCIUM 8.2 mg/dl (8.6-10.4); MAGNESIUM 2.1 mg/dL (1.6-2.3); PHOSPHOROUS 4.4 mg/dL (2.5-4.5)
--- NOTE | 2017-01-10 09:08 | PN ---
DATE: 01/09/17 Patient has been having whole body Ceretec scan, results of which is pending. She went for the test. However, she complains of deafness in her both ears acutely. She was on gentamicin and before that on vancomycin. So, this has been already discontinued by the primary and I agree with that and she was started on clindamycin. Actually, I will repeat her x-ray tomorrow. If the x-ray is improved, we can put her on Ancef after each dialysis and send her home when everybody is ready. She has received 7 days of antibiotics here. I could be related to her pneumonia , we will keep her on Ancef for 2 weeks after each dialysis to cover for pneumonia, but if it lights up then it will be a different story. But, we will check and test x-ray before we do that. We will follow with you. Twyla Tesfaye MD
--- NOTE | 2017-01-10 09:28 | CP.PCM.PN ---
Subjective - Date & Time of Evaluation Date of Evaluation: 01/10/17 Time of Evaluation: 09:27 - Subjective Subjective: seen and examined on clindamycin iv for staph bacteremia av fistula access chronic pain Objective - Vital Signs/Intake and Output Vital Signs (last 24 hours): Temp Pulse Resp BP Pulse Ox 98.1 F 82 20 125/56 L 96 01/10/17 08:24 01/10/17 08:24 01/10/17 08:24 01/10/17 08:24 01/10/17 08:24 Intake and Output: 01/10/17 01/10/17 06:59 18:59 Intake Total 400 Balance 400 - Medications Medications: Current Medications Cinacalcet (Sensipar) 90 mg PO DAILY [facility] Last Admin: 01/09/17 17:55 Dose: 90 mg Clonidine HCl (Catapres) 0.2 mg PO BID [facility] Last Admin: 01/09/17 17:54 Dose: 0.2 mg Epoetin Dewey (Procrit) 10,000 unit IV MWF [facility] Last Admin: 01/09/17 10:53 Dose: 10,000 unit Famotidine (Pepcid) 20 mg PO DAILY [facility] Last Admin: 01/09/17 17:54 Dose: 20 mg Clindamycin Phosphate 600 mg/ (Sodium Chloride) 54 mls @ 100 mls/hr IVPB Q8H [facility] Last Admin: 01/10/17 04:29 Dose: 100 mls/hr Insulin Aspart (Novolog) 4 unit SC ACTID [facility] Last Admin: 01/10/17 08:25 Dose: Not Given Insulin Glargine (Lantus) 6 unit SC HS [facility] Last Admin: 01/09/17 22:06 Dose: 6 units Insulin Human Regular (Novolin R) 0 unit SC ACHS [facility] PRN Reason: Protocol Last Admin: 01/10/17 07:15 Dose: Not Given Labetalol HCl (Normodyne) 300 mg PO BID [facility] Last Admin: 01/09/17 17:55 Dose: 300 mg Minoxidil (Loniten) 10 mg PO BID [facility] Last Admin: 01/09/17 17:55 Dose: 10 mg Morphine Sulfate (Morphine) 1 mg IVP Q4 PRN PRN Reason: Pain, severe (8-10) Last Admin: 01/09/17 22:11 Dose: 1 mg Ondansetron HCl (Zofran Inj) 4 mg IVP Q8 PRN PRN Reason: Nausea/Vomiting Last Admin: 01/09/17 20:48 Dose: 4 mg Pregabalin (Lyrica) 50 mg PO DAILY [facility] Last Admin: 01/09/17 17:55 Dose: 50 mg Saccharomyces Boulardii (Florastor) 250 mg PO BID [facility] Last Admin: 01/09/17 17:54 Dose: 250 mg Sevelamer Carbonate (Renvela) 2,400 mg PO TID [facility] Last Admin: 01/09/17 18:05 Dose: 2,400 mg - Labs Labs: 01/10/17 08:14 01/10/17 08:14 APTT 30 SECONDS (21-34) 01/03/17 05:14 - Constitutional Appears: Non-toxic, No Acute Distress, Chronically Ill - Head Exam Head Exam: NORMAL INSPECTION - Eye Exam Eye Exam: Normal appearance - ENT Exam ENT Exam: Mucous Membranes Moist, Normal Exam - Neck Exam Neck Exam: Normal Inspection - Respiratory Exam Respiratory Exam: Clear to Ausculation Bilateral, NORMAL BREATHING PATTERN - Cardiovascular Exam Cardiovascular Exam: REGULAR RHYTHM, RRR - GI/Abdominal Exam GI & Abdominal Exam: Distended, Soft - Extremities Exam Extremities Exam: Normal Inspection Additional comments: av fistula Assessment and Plan (1) ESRD (end stage renal disease) on dialysis Status: Acute (2) Fever Status: Acute (3) Hypertensive chronic kidney disease with stage 5 chronic kidney disease or end stage renal disease Status: Acute (4) MSSA (methicillin susceptible Staphylococcus aureus) septicemia Status: Acute (5) Back pain Status: Acute - Assessment and Plan (Free Text) Assessment: Continue IV ABs Dialysis MWF Monitor BP
[2017-01-10] MEDS: Saccharomyces Boulardi 250 mg Cap PO SCH ×2 (09:39→17:39)
[2017-01-10] MEDS: Labetalol Hydrochloride 300 mg Tab PO SCH ×2 (09:47→17:39)
--- NOTE | 2017-01-10 09:48 | CARD ---
APPROVED REPORT EKG Measurement Heart [id number] <Conclusion> Sinus tachycardia Otherwise normal ECG
--- NOTE | 2017-01-10 11:26 | CP.PCM.CON ---
History of Present Illness - History of Present Illness History of Present Illness: 41 year old female with a history of HTN, DM, ESRD on HD currently being treated for bacteremia with thrombocytopenia. The patient is unaware of having blood problems in the past. She denies abnormal bleeding and bruising. Review of her platelet count shows a aristeo of 61,000 with improvement to 114,000. Past medical history: DM, HTN, ESRD Past surgical history: AV fistula Family history: Denies hematologic and oncologic problems Social history: Denies tobacco, alcohol, and illicit drug use. Allergies: NKA Review of systems: All remaining review of systems including HEENT, cardiovascular, respiratory, gastrointestinal, genitourinary, musculoskeletal, dermatologic, neurologic, and psychiatric are negative unless mentioned in the HPI. Past Patient History - Infectious Disease Hx of Infectious Diseases: None - Past Medical History & Family History Past Medical History?: Yes - Past Social History Smoking Status: Never Smoked - CARDIAC Hx Hypertension: Yes - PULMONARY Hx Pneumonia: Yes - NEUROLOGICAL Hx Seizures: Yes (2008) - HEENT Hx HEENT Problems: Yes Hx Cataracts: Yes (HAD CUATE CATARACT SURGERY) - RENAL Hx Chronic Kidney Disease: Yes - ENDOCRINE/METABOLIC Hx Endocrine Disorders: Yes Hx Diabetes Mellitus Type 1: Yes - HEMATOLOGICAL/ONCOLOGICAL Hx Anemia: Yes - INTEGUMENTARY Hx Dermatological Problems: No - MUSCULOSKELETAL/RHEUMATOLOGICAL Hx Falls: No - GASTROINTESTINAL Hx Gastrointestinal Disorders: Yes Hx Ulcer: Yes - GENITOURINARY/GYNECOLOGICAL Hx Genitourinary Disorders: No - PSYCHIATRIC Hx Substance Use: No - SURGICAL HISTORY Hx Surgeries: Yes Hx Arteriovenous Shunt: Yes (NON FUNC MITZI, NEW SIDNEY) Hx Cataract Extraction: Yes Hx Eye Surgery: Yes (RETINA RT) - ANESTHESIA Hx Anesthesia: Yes Hx Anesthesia Reactions: No Hx Malignant Hyperthermia: No Meds Allergies/Adverse Reactions: Allergies Allergy/AdvReac Type Severity Reaction Status Date / Time No Known Allergies Allergy Verified 01/02/17 18:58 - Medications Medications: Current Medications Cinacalcet (Sensipar) 90 mg PO DAILY [facility] Last Admin: 01/10/17 09:39 Dose: 90 mg Clonidine HCl (Catapres) 0.2 mg PO BID [facility] Last Admin: 01/10/17 09:40 Dose: 0.2 mg Epoetin Dewey (Procrit) 10,000 unit IV MWF [facility] Last Admin: 01/09/17 10:53 Dose: 10,000 unit Famotidine (Pepcid) 20 mg PO DAILY [facility] Last Admin: 01/10/17 09:39 Dose: 20 mg Clindamycin Phosphate 600 mg/ (Sodium Chloride) 54 mls @ 100 mls/hr IVPB Q8H [facility] Last Admin: 01/10/17 04:29 Dose: 100 mls/hr Insulin Aspart (Novolog) 4 unit SC ACTID [facility] Last Admin: 01/10/17 08:25 Dose: Not Given Insulin Glargine (Lantus) 6 unit SC HS [facility] Last Admin: 01/09/17 22:06 Dose: 6 units Insulin Human Regular (Novolin R) 0 unit SC ACHS [facility] PRN Reason: Protocol Last Admin: 01/10/17 07:15 Dose: Not Given Labetalol HCl (Normodyne) 300 mg PO BID [facility] Last Admin: 01/10/17 09:47 Dose: 300 mg Minoxidil (Loniten) 10 mg PO BID [facility] Last Admin: 01/09/17 17:55 Dose: 10 mg Morphine Sulfate (Morphine) 1 mg IVP Q4 PRN PRN Reason: Pain, severe (8-10) Last Admin: 01/09/17 22:11 Dose: 1 mg Ondansetron HCl (Zofran Inj) 4 mg IVP Q8 PRN PRN Reason: Nausea/Vomiting Last Admin: 01/09/17 20:48 Dose: 4 mg Pregabalin (Lyrica) 50 mg PO DAILY [facility] Last Admin: 01/10/17 09:39 Dose: 50 mg Saccharomyces Boulardii (Florastor) 250 mg PO BID [facility] Last Admin: 01/10/17 09:39 Dose: 250 mg Sevelamer Carbonate (Renvela) 2,400 mg PO TID [facility] Last Admin: 01/10/17 09:39 Dose: 2,400 mg Physical Exam - Head Exam Head Exam: ATRAUMATIC - Eye Exam Eye Exam: Normal appearance - ENT Exam ENT Exam: Mucous Membranes Dry - Respiratory Exam Respiratory Exam: NORMAL BREATHING PATTERN - Cardiovascular Exam Cardiovascular Exam: +S1, +S2 - GI/Abdominal Exam GI & Abdominal Exam: Normal Bowel Sounds - Extremities Exam Extremities exam: Positive for: normal inspection Results - Vital Signs Recent Vital Signs: Last Vital Signs Temp 98.1 F 01/10/17 08:24 Pulse 82 01/10/17 08:24 Resp 20 01/10/17 08:24 BP 125/56 L 01/10/17 08:24 Pulse Ox 96 01/10/17 08:24 - Labs Result Diagrams: 01/10/17 08:14 01/10/17 08:14 Labs: Laboratory Results - last 24 hr 01/09/17 01/09/17 01/09/17 11:36 17:04 21:20 WBC RBC Hgb Hct MCV MCH MCHC RDW Plt Count MPV Neut % (Auto) Lymph % (Auto) Stone % (Auto) Eos % (Auto) Baso % (Auto) Neut # Lymph # Stone # Eos # Baso # Sodium Potassium Chloride Carbon Dioxide Anion Gap BUN Creatinine Est GFR ( Amer) Est GFR (Non-Af Amer) POC Glucose (mg/dL) 160 H 195 H 208 H Random Glucose Calcium Phosphorus Magnesium Total Bilirubin AST ALT Alkaline Phosphatase Total Protein Albumin Globulin Albumin/Globulin Ratio 01/10/17 01/10/17 01/10/17 06:43 08:14 08:14 WBC 4.7 L RBC 2.86 L Hgb 8.7 L Hct 26.1 L MCV 91.5 MCH 30.5 MCHC 33.3 RDW 15.0 H Plt Count 160 MPV 11.2 Neut % (Auto) 41.4 L Lymph % (Auto) 35.3 Stone % (Auto) 15.7 H Eos % (Auto) 6.5 H Baso % (Auto) 1.1 Neut # 1.9 Lymph # 1.6 Stone # 0.7 Eos # 0.3 Baso # 0.1 Sodium 139 Potassium 4.4 Chloride 97 L Carbon Dioxide 27 Anion Gap 20 BUN 34 H Creatinine 5.4 H Est GFR ( Amer) 11 Est GFR (Non-Af Amer) 9 POC Glucose (mg/dL) 149 H Random Glucose 134 H Calcium 8.2 L Phosphorus 4.4 Magnesium 2.1 Total Bilirubin 0.9 AST 50 H D ALT 89 H Alkaline Phosphatase 229 H Total Protein 7.5 Albumin 4.0 Globulin 3.4 Albumin/Globulin Ratio 1.2 Assessment & Plan (1) Thrombocytopenia Assessment and Plan: likely sepsis related improving with antibiotics will add heparin AB and serotonin release assay (low suspicion) will review peripheral smear Status: Acute (2) Anemia Assessment and Plan: will check ferritin, retic count, b12, folate anemia of CKD Thank you for this interesting consult. Status: Acute
--- NOTE | 2017-01-10 16:01 | NM ---
PROCEDURE: CERETEC LABELED WHITE BLOOD CELL STUDY HISTORY: staph infection r/o source COMPARISON: Comparison is made to the previous CTA of the chest dated 01/03/2017 TECHNIQUE: Standard protocol for this study/examination. 21.2 mCi technetium 99 M Ceretec labeled white blood cells administered intravenously. Scanning at 2 and 20 hour as per institutional protocol. FINDINGS: There is focal/foci of [id number] increased radiotracer accumulation at the distal right arm/ antecubital fossa noted at the air early 2 and delayed 20 hours images. The possibility of infectious process at this region cannot be excluded. Otherwise physiological distribution of the radiotracer in the body noted. There are foci of intense tracer accumulation in the early image at the left distal forearm likely at the site of the radiotracer injection. These foci resolved in the delayed images IMPRESSION: Focal/foci of mild increased radiotracer accumulation at the distal right arm/ right antecubital region may represent infections or inflammatory process. Otherwise physiological distribution of the radiotracer in the body noted.
--- NOTE | 2017-01-10 19:15 | CP.PCM.PN ---
Subjective - Date & Time of Evaluation Date of Evaluation: 01/10/17 Time of Evaluation: 04:25 - Subjective Subjective: dictated Objective - Vital Signs/Intake and Output Vital Signs (last 24 hours): Temp Pulse Resp BP Pulse Ox 97.8 F 75 20 133/56 L 98 01/10/17 16:29 01/10/17 16:29 01/10/17 16:29 01/10/17 16:29 01/10/17 16:29 Intake and Output: 01/10/17 01/11/17 18:59 06:59 Intake Total 780 Balance 780 - Medications Medications: Current Medications Cinacalcet (Sensipar) 90 mg PO DAILY [facility] Last Admin: 01/10/17 09:39 Dose: 90 mg Clonidine HCl (Catapres) 0.2 mg PO BID [facility] Last Admin: 01/10/17 17:39 Dose: 0.2 mg Epoetin Dewey (Procrit) 10,000 unit IV MWF [facility] Last Admin: 01/09/17 10:53 Dose: 10,000 unit Famotidine (Pepcid) 20 mg PO DAILY [facility] Last Admin: 01/10/17 09:39 Dose: 20 mg Clindamycin Phosphate 600 mg/ (Sodium Chloride) 54 mls @ 100 mls/hr IVPB Q8H [facility] Last Admin: 01/10/17 13:22 Dose: 100 mls/hr Insulin Aspart (Novolog) 4 unit SC ACTID [facility] Last Admin: 01/10/17 17:40 Dose: 4 unit Insulin Glargine (Lantus) 6 unit SC HS [facility] Last Admin: 01/09/17 22:06 Dose: 6 units Insulin Human Regular (Novolin R) 0 unit SC ACHS [facility] PRN Reason: Protocol Last Admin: 01/10/17 17:40 Dose: 1 unit Labetalol HCl (Normodyne) 300 mg PO BID [facility] Last Admin: 01/10/17 17:39 Dose: 300 mg Minoxidil (Loniten) 10 mg PO BID [facility] Last Admin: 01/10/17 17:40 Dose: 10 mg Morphine Sulfate (Morphine) 1 mg IVP Q4 PRN PRN Reason: Pain, severe (8-10) Last Admin: 01/09/17 22:11 Dose: 1 mg Ondansetron HCl (Zofran Inj) 4 mg IVP Q8 PRN PRN Reason: Nausea/Vomiting Last Admin: 01/09/17 20:48 Dose: 4 mg Pregabalin (Lyrica) 50 mg PO DAILY [facility] Last Admin: 01/10/17 09:39 Dose: 50 mg Saccharomyces Boulardii (Florastor) 250 mg PO BID [facility] Last Admin: 01/10/17 17:39 Dose: 250 mg Sevelamer Carbonate (Renvela) 2,400 mg PO TID [facility] Last Admin: 01/10/17 17:40 Dose: 2,400 mg - Labs Labs: 01/10/17 08:14 01/10/17 08:14 APTT 30 SECONDS (21-34) 01/03/17 05:14
--- NOTE | 2017-01-10 19:39 | CP.PCM.PN ---
Subjective - Date & Time of Evaluation Date of Evaluation: 01/10/17 Time of Evaluation: 19:36 - Subjective Subjective: Patieint seen and examined at bedside. She was resting comfortably in bed watching TV. Patient doing well with no new complaints at this time. Patient says she is still having the swishing noises in her ears and feels like her ears are full. These noises get louder when she swallows. Patient says she feels a little pressure in her head and face. She admits to some constipation but had a BM yesterday. Patient denies CP, SOB, nasal congestion, fever, chills , AP, N/V/D. Objective - Vital Signs/Intake and Output Vital Signs (last 24 hours): Temp Pulse Resp BP Pulse Ox 97.8 F 75 20 133/56 L 98 01/10/17 16:29 01/10/17 16:29 01/10/17 16:29 01/10/17 16:29 01/10/17 16:29 Intake and Output: 01/10/17 01/11/17 18:59 06:59 Intake Total 780 Balance 780 - Medications Medications: Current Medications Cinacalcet (Sensipar) 90 mg PO DAILY [facility] Last Admin: 01/10/17 09:39 Dose: 90 mg Clonidine HCl (Catapres) 0.2 mg PO BID [facility] Last Admin: 01/10/17 17:39 Dose: 0.2 mg Epoetin Dewey (Procrit) 10,000 unit IV MWF [facility] Last Admin: 01/09/17 10:53 Dose: 10,000 unit Famotidine (Pepcid) 20 mg PO DAILY [facility] Last Admin: 01/10/17 09:39 Dose: 20 mg Clindamycin Phosphate 600 mg/ (Sodium Chloride) 54 mls @ 100 mls/hr IVPB Q8H [facility] Last Admin: 01/10/17 13:22 Dose: 100 mls/hr Insulin Aspart (Novolog) 4 unit SC ACTID [facility] Last Admin: 01/10/17 17:40 Dose: 4 unit Insulin Glargine (Lantus) 6 unit SC HS [facility] Last Admin: 01/09/17 22:06 Dose: 6 units Insulin Human Regular (Novolin R) 0 unit SC ACHS [facility] PRN Reason: Protocol Last Admin: 09/21/17 17:40 Dose: 1 unit Labetalol HCl (Normodyne) 300 mg PO BID [facility] Last Admin: 01/10/17 17:39 Dose: 300 mg Minoxidil (Loniten) 10 mg PO BID [facility] Last Admin: 01/10/17 17:40 Dose: 10 mg Morphine Sulfate (Morphine) 1 mg IVP Q4 PRN PRN Reason: Pain, severe (8-10) Last Admin: 01/09/17 22:11 Dose: 1 mg Ondansetron HCl (Zofran Inj) 4 mg IVP Q8 PRN PRN Reason: Nausea/Vomiting Last Admin: 01/09/17 20:48 Dose: 4 mg Pregabalin (Lyrica) 50 mg PO DAILY [facility] Last Admin: 01/10/17 09:39 Dose: 50 mg Saccharomyces Boulardii (Florastor) 250 mg PO BID [facility] Last Admin: 01/10/17 17:39 Dose: 250 mg Sevelamer Carbonate (Renvela) 2,400 mg PO TID [facility] Last Admin: 01/10/17 17:40 Dose: 2,400 mg - Labs Labs: 01/10/17 08:14 01/10/17 08:14 APTT 30 SECONDS (21-34) 01/03/17 05:14 - Additional Findings Additional findings: - Constitutional Appears: Non-toxic, No Acute Distress - Head Exam Head Exam: ATRAUMATIC, NORMAL INSPECTION Additional comments: Hirsutism - Eye Exam Eye Exam: EOMI - ENT Exam ENT Exam: Mucous Membranes Moist - Respiratory Exam Respiratory Exam: Clear to Ausculation Bilateral, NORMAL BREATHING PATTERN - Cardiovascular Exam Cardiovascular Exam: REGULAR RHYTHM, +S1, +S2, Murmur (CLIFFORD ) - GI/Abdominal Exam GI & Abdominal Exam: Soft, Normal Bowel Sounds. absent: Tenderness - Extremities Exam Extremities Exam: Normal Inspection. absent: Tenderness Additional comments: AV fistula site without pain or erythema - Neurological Exam Neurological Exam: Alert, Awake - Psychiatric Exam Psychiatric exam: Normal Affect, Normal Mood - Skin Skin Exam: Dry, Intact, Normal Color, Warm Assessment and Plan - Assessment and Plan (Free Text) Assessment: Sepsis, Pneumonia, MSSA bacteremia * Criteria: febrile, leukocytosis; secondary to pneumonia; Lactate acid: 1.1--> code sepsis not called in light of normal lactate * CXR - Prominent ill-defined bibasilar airspace opacities * CTA - No definite CT evidence of PE. Mosaic pattern of lung parenchyma, nonspecific. DDX: Air-trapping, interstitial edema, interstitial pneumonia, interstitial lung disease. Clinical correlation is needed. Probable bibasilar atelectasis. Superimposed pneumonia is not excluded. Heterogeneous thyroid. Follow up as clinically warranted * Infectious Disease (Dr. Tesfaye) on the case-->help appreciated * see Abx below * F/U Ceretec Scan site of infection (01/09) * Nephrology (Dr. Velazquez) on the case-->help appreciated * Blood Culture (01/02/17): Staph Aureus X2-->Sensitive to Rocephin and Vancomycin * Throat Culture (01/03/17): No beta Strep group A isolated * echo (01/04/17) - EF: 70%, LV function WNL, concentric LV hypertrophy, mild TR , borderline pulmonary HTN, No vegetations * Procalcitonin: 51.54--->ordered for procalcitonin tomorrow * Repeat Blood cultures (01/06): Staph aureus * F/U BC on 01/12 * IV Abx: * Clindamycin 600 mg q8h * discontinued Vancomycin 1gram IV MWF (started 01/07/17) and Rocephin 1 gram IV Q daily (started 01/03/17) * Ototoxicity: Discontinued Nafcillin 2g IV Q6 (started 01/07) for MSSA and Gentamicin Sulfate 80mg IV MWF (01/03/17) after each dialysis LE Pain * ordered for arterial and venous duplex low suspicion for DVT/arterial problems - negative Elevated LFTs * not present on admission * Possible 2/2 abx * Monitor and f/u with ID about choice of abx Uncontrolled diabetes * Started on Home Insulin regiment Lantus 6 units SC HS; 4 units SC ACTID * Lyrica 50mg PO daily * [id number]: 7.2 Thrombocytopenia * Heme/Onc (Dr. Rodriguez) - recs appreciated * Likely sepsis related as it is improving with antibiotics * f/u heparin AB and serotonin release assay Anemia * Likely 2/2 CKD * Heme/Onc (Dr. Rodriguez) - recs appreciated * f/u ferritin, retic count, b12, folate Hypertension * Minoxidil 10 mg PO BID * Clonidine 0.2 mg PO BID * Labetalol 300mg PO BID * ESRD on dialysis * monitor vital signs * f/u carotid doppler for swishing sound patient hearing in ears - negative ESRD on HD * Nephrology (Dr. Velazquez) on board-->help appreciated * Dialysis schedule is MW, received full treatment on 01/02/17 prior to coming * Patient should get Gentamycin 80 mg after each dialysis treatment * Renvela 2400mg PO TID * Sutures removed from HD site 01/07 (contacted where they were placed and confirmed removal date) Low Back Pain * ordered for L-S spine xray Constipation * Dulcalax given (01/07) Hirsutism * likely side effect of minoxidil Prophylactic Care * Chemical anticoagulation contraindicated secondary to thrombocytopenia * Pepcid 20 mg PO daily for GI ppx * Zofran 4 mg Q8 PRN nausea * PT/OT eval
--- NOTE | 2017-01-10 21:02 | PN ---
DATE: SUBJECTIVE: The patient is afebrile. She has been complaining of ear problems. She says she is still having noises in her ear and feels that her ears are full and she is not able to hear well. We have discontinued vancomycin and gentamicin. She also has come with pneumonia, hence we have to worry if she has any otitis media or sensorineural deafness due to the antibiotics, but those have been discontinued and should have gotten better. She is not allergic to any medicine and [facility]. PHYSICAL EXAMINATION: VITAL SIGNS: T-max is 97.8, pulse 75, blood pressure 133/56, respirations are 20. HEENT: Head is atraumatic, normocephalic. There was no otoscope available on the floor, so I could not check her ears even. NECK: Supple. LUNGS: Clear. No crackles or rales present. If it continues, we should get an . HEART: S1 and S2 is regular. Has a murmur present. ABDOMEN: Soft and nontender. No guarding. No rigidity present. She is a dialysis patient. LABORATORY DATA: White count is 4.7, hemoglobin 8.7, hematocrit 26.1, and platelet count is 160 now. BUN is 34, creatinine is 5.4, and AST, ALT remains elevated along with alkaline phosphatase. MEDICATIONS: At this time, her medications, she is on clindamycin as we discontinued nafcillin as well as gentamicin. PLAN: Plan is to see the report. WBC scan at this time report is ready. It shows there is focal foci of [id number] increased radiotracer accumulation of the distal right arm and decubital fossa noted at early 2 and the late 20 hours imaging, the possibility of infectious process at this region cannot be excluded. Otherwise, physiological distribution of the radiotracer in the body noted, right arm, right cubital may represent infection or inflammatory process. So, it confirms that there may be an infection of this side; however, it has been functioning, so at this time, I think she should get Ancef 2 g pre-dialysis on sat,saturday and 3 g on Fridays, dialysis on Saturday, Saturday, and Saturday, and but before we send her out, we want to make sure the ear is okay and we need to treat pneumonia and otitis media or the ear infection. We will follow. Repeat blood cultures came on negative from 01/07/2017 and 01/06/2017, and she has Staphylococcus aureus, which was methicillin-sensitive Staphylococcus, but was persistent on several days, I think she needs to be treated for good 6 weeks from the time of admission. Twyla Tesfaye MD MTDD
[2017-01-10 21:23] LABS: FOLATE 9.1 ng/mL
[2017-01-10] MEDS: (Lantus) Insulin Glargine, Recombinant SC SCH (21:45)
[2017-01-11] MEDS: (Novolog) Insulin Aspart, Recombinant 100 u/ml 10 ml vial SC SCH ×3 (07:35→16:30)
[2017-01-11] MEDS: (Novolin R) Insulin Human Regular 100 units/ml vial SC SCH ×4 (07:35→22:15)
[2017-01-11 10:26] LABS: BASO # 0.1 K/uL (0.0-0.2); BASO % 1.4 % (0.0-2.0); EOS # 0.3 K/uL (0.0-0.7); EOS % 6.4 % (0.0-4.0); HEMATOCRIT 25.7 % (34.0-47.0); LYMPH # 1.7 K/uL (1.0-4.3); LYMPH % 37.7 % (20.0-40.0); MEAN CELL VOLUME 91.2 fL (81.0-99.0); MEAN CORPUSCULAR HEMOGLOBIN 30.8 pg (27.0-31.0); MEAN CORPUSCULAR HGB CONC 33.8 g/dL (33.0-37.0); MEAN PLATELET VOLUME 10.2 fL (7.2-11.7); MONO # 0.5 K/uL (0.0-0.8); MONO % 10.9 % (0.0-10.0); RED CELL DISTRIBUTION WIDTH 15.2 % (11.5-14.5); WHITE BLOOD COUNT 4.6 K/uL (4.8-10.8)
[2017-01-11] MEDS: Saccharomyces Boulardi 250 mg Cap PO SCH ×2 (10:30→18:05)
[2017-01-11] MEDS: Labetalol Hydrochloride 300 mg Tab PO SCH ×2 (10:30→18:05)
[2017-01-11 10:37] LABS: POTASSIUM 5.3 mmol/L (3.6-5.2)
[2017-01-11 10:39] LABS: ALB/GLOB RATIO 1.2 (1.0-2.1); BILIRUBIN,TOTAL 0.9 mg/dL (0.2-1.3); TOTAL PROTEIN 7.6 g/dL (6.3-8.3)
[2017-01-11 10:40] LABS: CALCIUM 8.1 mg/dl (8.6-10.4); MAGNESIUM 2.1 mg/dL (1.6-2.3); PHOSPHOROUS 5.2 mg/dL (2.5-4.5)
--- NOTE | 2017-01-11 11:24 | CP.PCM.PN ---
Subjective - Date & Time of Evaluation Date of Evaluation: 01/11/17 Time of Evaluation: 11:21 - Subjective Subjective: seen on hd, no complaints uf 3.8L on clindamycin wbc scan noted Objective - Vital Signs/Intake and Output Vital Signs (last 24 hours): Temp Pulse Resp BP Pulse Ox 97.9 F 73 19 144/63 95 01/11/17 10:05 01/11/17 10:05 01/11/17 10:05 01/11/17 10:35 01/11/17 10:05 - Medications Medications: Current Medications Cinacalcet (Sensipar) 90 mg PO DAILY [facility] Last Admin: 01/10/17 09:39 Dose: 90 mg Clonidine HCl (Catapres) 0.2 mg PO BID [facility] Last Admin: 01/10/17 17:39 Dose: 0.2 mg Epoetin Dewey (Procrit) 10,000 unit IV MWF [facility] [place] Last Admin: 01/09/17 10:53 Dose: 10,000 unit Famotidine (Pepcid) 20 mg PO DAILY [facility] [place] Last Admin: 01/10/17 09:39 Dose: 20 mg Clindamycin Phosphate 600 mg/ (Sodium Chloride) 54 mls @ 100 mls/hr IVPB Q8H [facility] [place] Last Admin: 01/11/17 03:52 Dose: 100 mls/hr Insulin Aspart (Novolog) 4 unit SC ACTID [facility] [place] Last Admin: 01/11/17 07:35 Dose: Not Given Insulin Glargine (Lantus) 6 unit SC HS [facility] Last Admin: 01/10/17 21:45 Dose: 6 units Insulin Human Regular (Novolin R) 0 unit SC ACHS [facility] [place] PRN Reason: Protocol Last Admin: 01/11/17 07:35 Dose: Not Given Labetalol HCl (Normodyne) 300 mg PO BID [facility] [place] Last Admin: 01/10/17 17:39 Dose: 300 mg Minoxidil (Loniten) 10 mg PO BID [facility] Last Admin: 01/10/17 17:40 Dose: 10 mg Morphine Sulfate (Morphine) 1 mg IVP Q4 PRN PRN Reason: Pain, severe (8-10) Last Admin: 01/11/17 05:35 Dose: 1 mg Ondansetron HCl (Zofran Inj) 4 mg IVP Q8 PRN PRN Reason: Nausea/Vomiting Last Admin: 01/09/17 20:48 Dose: 4 mg Pregabalin (Lyrica) 50 mg PO DAILY [facility] [place] Last Admin: 01/10/17 09:39 Dose: 50 mg Saccharomyces Boulardii (Florastor) 250 mg PO BID [facility] Last Admin: 01/10/17 17:39 Dose: 250 mg Sevelamer Carbonate (Renvela) 2,400 mg PO TID [facility] Last Admin: 01/10/17 17:40 Dose: 2,400 mg - Labs Labs: 01/11/17 10:21 01/11/17 10:21 APTT 30 SECONDS (21-34) 01/03/17 05:14 - Constitutional Appears: Non-toxic, No Acute Distress, Chronically Ill - Head Exam Head Exam: NORMAL INSPECTION - Eye Exam Eye Exam: Normal appearance - ENT Exam ENT Exam: Mucous Membranes Moist, Normal Exam - Neck Exam Neck Exam: Normal Inspection - Respiratory Exam Respiratory Exam: Decreased Breath Sounds, NORMAL BREATHING PATTERN - Cardiovascular Exam Cardiovascular Exam: REGULAR RHYTHM, RRR - GI/Abdominal Exam GI & Abdominal Exam: Distended, Soft, Normal Bowel Sounds - Extremities Exam Extremities Exam: Normal Inspection Additional comments: rue avf - Neurological Exam Neurological Exam: Alert, Oriented x3 Assessment and Plan (1) ESRD (end stage renal disease) on dialysis Status: Acute (2) Fever Status: Acute (3) Hypertensive chronic kidney disease with stage 5 chronic kidney disease or end stage renal disease Status: Acute (4) MSSA (methicillin susceptible Staphylococcus aureus) septicemia Status: Acute (5) Back pain Status: Acute - Assessment and Plan (Free Text) Assessment: maintain hd mwf antibiotics per ID. source of bacteremia? on jerry
[2017-01-11] MEDS: Epoetin Alfa 10,000 unit/ml Dialysis IV SCH (11:47)
--- NOTE | 2017-01-11 16:29 | CP.PCM.PN ---
<Hemalatha Bean - Last Filed: 01/11/17 17:25> Subjective - Date & Time of Evaluation Date of Evaluation: 01/11/17 Time of Evaluation: 16:23 - Subjective Subjective: Patieint seen and examined at bedside and again later at dialysis. She was resting comfortably in bed watching TV. Patient doing well with no new complaints at this time. Patient says she is still having the swishing noises in her ears and feels like her ears are full and she cannot hear well. Patient also admits to some pressure in her chest that comes and goes. She says she has been having pain that goes from the back of her neck all the way down her left arm. This is not new for her as she had this same thing about a year ago. She also complains of dry eyes and has been rubbing them a lot. Patient denies CP, SOB, nasal congestion, fever, chills, AP, N/V/D. Objective - Vital Signs/Intake and Output Vital Signs (last 24 hours): Temp Pulse Resp BP Pulse Ox 98.4 F 84 20 133/67 94 L 01/11/17 15:00 01/11/17 15:00 01/11/17 15:00 01/11/17 15:00 01/11/17 15:00 Intake and Output: 01/11/17 01/11/17 06:59 18:59 Intake Total 880 Balance 880 - Medications Medications: Current Medications Artificial Tears (Artificial Tears) 0 ml OD Q3H PRN PRN Reason: Dry eyes Cinacalcet (Sensipar) 90 mg PO DAILY [facility] Last Admin: 01/11/17 14:12 Dose: 90 mg Clonidine HCl (Catapres) 0.2 mg PO BID [facility] Last Admin: 01/11/17 10:30 Dose: Not Given Epoetin Dewey (Procrit) 10,000 unit IV MWF [facility] Last Admin: 01/11/17 11:47 Dose: 10,000 unit Famotidine (Pepcid) 20 mg PO DAILY [facility] Last Admin: 01/11/17 14:12 Dose: 20 mg Clindamycin Phosphate 600 mg/ (Sodium Chloride) 54 mls @ 100 mls/hr IVPB Q8H [facility] Last Admin: 01/11/17 14:12 Dose: 100 mls/hr Insulin Aspart (Novolog) 4 unit SC ACTID [facility] Last Admin: 01/11/17 14:11 Dose: 4 unit Insulin Glargine (Lantus) 6 unit SC HS [facility] Last Admin: 01/10/17 21:45 Dose: 6 units Insulin Human Regular (Novolin R) 0 unit SC ACHS [facility] PRN Reason: Protocol Last Admin: 01/11/17 14:11 Dose: 2 unit Labetalol HCl (Normodyne) 300 mg PO BID [facility] Last Admin: 01/11/17 10:30 Dose: Not Given Minoxidil (Loniten) 10 mg PO BID [facility] Last Admin: 01/11/17 10:30 Dose: Not Given Morphine Sulfate (Morphine) 1 mg IVP Q4 PRN PRN Reason: Pain, severe (8-10) Last Admin: 01/11/17 05:35 Dose: 1 mg Ondansetron HCl (Zofran Inj) 4 mg IVP Q8 PRN PRN Reason: Nausea/Vomiting Last Admin: 01/09/17 20:48 Dose: 4 mg Pregabalin (Lyrica) 50 mg PO DAILY [facility] Last Admin: 01/11/17 14:12 Dose: 50 mg Saccharomyces Boulardii (Florastor) 250 mg PO BID [facility] Last Admin: 01/11/17 10:30 Dose: Not Given Sevelamer Carbonate (Renvela) 2,400 mg PO TID [facility] Last Admin: 01/11/17 14:12 Dose: 2,400 mg - Labs Labs: 01/11/17 10:21 01/11/17 10:21 APTT 30 SECONDS (21-34) 01/03/17 05:14 - Additional Findings Additional findings: - Additional Findings Additional findings: - Constitutional Appears: Non-toxic, No Acute Distress - Head Exam Head Exam: ATRAUMATIC, NORMAL INSPECTION Additional comments: Hirsutism - Eye Exam Eye Exam: EOMI Additional comments: OD conjuntival erythema - ENT Exam ENT Exam: Mucous Membranes Moist Additional comments: TM's in tact and nonbulging, without erythema or loss of light reflex. - Respiratory Exam Respiratory Exam: Clear to Ausculation Bilateral, NORMAL BREATHING PATTERN - Cardiovascular Exam Cardiovascular Exam: REGULAR RHYTHM, +S1, +S2, Murmur (CLIFFORD ) - GI/Abdominal Exam GI & Abdominal Exam: Soft, Normal Bowel Sounds. absent: Tenderness - Extremities Exam Extremities Exam: Normal Inspection. absent: Tenderness Additional comments: AV fistula site without pain or erythema - Neurological Exam Neurological Exam: Alert, Awake - Psychiatric Exam Psychiatric exam: Normal Affect, Normal Mood - Skin Skin Exam: Dry, Intact, Normal Color, Warm Assessment and Plan - Assessment and Plan (Free Text) Assessment: Sepsis, Pneumonia, MSSA bacteremia * Criteria: febrile, leukocytosis; secondary to pneumonia; Lactate acid: 1.1--> code sepsis not called in light of normal lactate * CXR - Prominent ill-defined bibasilar airspace opacities * CTA - No definite CT evidence of PE. Mosaic pattern of lung parenchyma, nonspecific. DDX: Air-trapping, interstitial edema, interstitial pneumonia, interstitial lung disease. Clinical correlation is needed. Probable bibasilar atelectasis. Superimposed pneumonia is not excluded. Heterogeneous thyroid. Follow up as clinically warranted * Infectious Disease (Dr. Tesfaye) on the case-->help appreciated * see Abx below * Ceretec Scan (01/09): accumulation of tagged WBCs in right antecubital fossa, otherwise normal physiological distribution * Recommends Ancef 1g prior to MW dialysis and 2g prior to F dialysis once discharged * Nephrology (Dr. Velazquez) on the case-->help appreciated * Blood Culture (01/02/17): Staph Aureus X2-->Sensitive to Rocephin and Vancomycin * Throat Culture (01/03/17): No beta Strep group A isolated * echo (01/04/17) - EF: 70%, LV function WNL, concentric LV hypertrophy, mild TR , borderline pulmonary HTN, No vegetations * Procalcitonin: 51.54--->ordered for procalcitonin tomorrow * Repeat Blood cultures (01/06): Staph aureus * F/U BC (01/11) * IV Abx: * Clindamycin 600 mg q8h * discontinued Vancomycin 1gram IV MWF (started 01/07/17) and Rocephin 1 gram IV Q daily (started 01/03/17) * Ototoxicity: Discontinued Nafcillin 2g IV Q6 (started 01/07) for MSSA and Gentamicin Sulfate 80mg IV MWF (01/03/17) after each dialysis LE Pain * ordered for arterial and venous duplex low suspicion for DVT/arterial problems - negative Elevated LFTs * not present on admission * Possible 2/2 abx * Monitor and f/u with ID about choice of abx Uncontrolled diabetes * Started on Home Insulin regiment Lantus 6 units SC HS; 4 units SC ACTID * Lyrica 50mg PO daily * Accuchecks ACHS * [id number]: 7.2 Thrombocytopenia * Heme/Onc (Dr. Rodriguez) - recs appreciated * Likely sepsis related as it is improving with antibiotics * f/u heparin AB and serotonin release assay Anemia * Likely 2/2 CKD * Heme/Onc (Dr. Rodriguez) - recs appreciated * ferritin 901, b12 387, folate 9.1 * f/u retic count Hypertension * Minoxidil 10 mg PO BID * Clonidine 0.2 mg PO BID * Labetalol 300mg PO BID * ESRD on dialysis * monitor vital signs * f/u carotid doppler for swishing sound patient hearing in ears - negative ESRD on HD * Nephrology (Dr. Velazquez) on board-->help appreciated * Dialysis schedule is MW, received full treatment on 01/02/17 prior to coming * Patient should get Gentamycin 80 mg after each dialysis treatment * Renvela 2400mg PO TID * Sutures removed from HD site 01/07 (contacted where they were placed and confirmed removal date) Low Back Pain * ordered for L-S spine xray Constipation * Dulcalax given (01/07) Hirsutism * likely side effect of minoxidil Ear fullness * ENT consulted (Dr. Trimble) * Likely ototoxicity * Discontinued Nafcillin 2g IV Q6 (started 01/07) for MSSA and Gentamicin Sulfate 80mg IV MWF (01/03/17) after each dialysis Chest Pressure * JOLANTA negative (01/11) Keratoconjunctivitis Sicca * Artificial tears PRN Prophylactic Care * Chemical anticoagulation contraindicated secondary to thrombocytopenia * Pepcid 20 mg PO daily for GI ppx * Zofran 4 mg Q8 PRN nausea * PT/OT eval <Rosendo Fofana - Last Filed: 01/11/17 19:37> Objective - Vital Signs/Intake and Output Vital Signs (last 24 hours): Temp Pulse Resp BP Pulse Ox 98.5 F 84 18 153/60 H 97 01/11/17 16:33 01/11/17 16:33 01/11/17 16:33 01/11/17 16:33 01/11/17 16:33 Intake and Output: 01/11/17 01/12/17 18:59 06:59 Intake Total 880 Balance 880 - Medications Medications: Current Medications Artificial Tears (Artificial Tears) 0 ml OD Q3H PRN PRN Reason: Dry eyes Cinacalcet (Sensipar) 90 mg PO DAILY [facility] Last Admin: 01/11/17 14:12 Dose: 90 mg Clonidine HCl (Catapres) 0.2 mg PO BID [facility] Last Admin: 01/11/17 18:05 Dose: 0.2 mg Epoetin Dewey (Procrit) 10,000 unit IV MWF [facility] Last Admin: 01/11/17 11:47 Dose: 10,000 unit Famotidine (Pepcid) 20 mg PO DAILY [facility] Last Admin: 01/11/17 14:12 Dose: 20 mg Clindamycin Phosphate 600 mg/ (Sodium Chloride) 54 mls @ 100 mls/hr IVPB Q8H [facility] Last Admin: 01/11/17 14:12 Dose: 100 mls/hr Insulin Aspart (Novolog) 4 unit SC ACTID [facility] Last Admin: 01/11/17 16:30 Dose: Not Given Insulin Glargine (Lantus) 6 unit SC HS [facility] Last Admin: 01/10/17 21:45 Dose: 6 units Insulin Human Regular (Novolin R) 0 unit SC ACHS [facility] PRN Reason: Protocol Last Admin: 01/11/17 16:30 Dose: Not Given Labetalol HCl (Normodyne) 300 mg PO BID [facility] Last Admin: 01/11/17 18:05 Dose: 300 mg Minoxidil (Loniten) 10 mg PO BID [facility] Last Admin: 01/11/17 18:04 Dose: 10 mg Morphine Sulfate (Morphine) 1 mg IVP Q4 PRN PRN Reason: Pain, severe (8-10) Last Admin: 01/11/17 18:05 Dose: 1 mg Ondansetron HCl (Zofran Inj) 4 mg IVP Q8 PRN PRN Reason: Nausea/Vomiting Last Admin: 01/11/17 18:05 Dose: 4 mg Pregabalin (Lyrica) 50 mg PO DAILY [facility] Last Admin: 01/11/17 14:12 Dose: 50 mg Saccharomyces Boulardii (Florastor) 250 mg PO BID [facility] Last Admin: 01/11/17 18:05 Dose: 250 mg Sevelamer Carbonate (Renvela) 2,400 mg PO TID [facility] Last Admin: 01/11/17 18:04 Dose: 2,400 mg - Labs Labs: 01/11/17 10:21 01/11/17 10:21 APTT 30 SECONDS (21-34) 01/03/17 05:14 Attending/Attestation - Attestation I have personally seen and examined this patient.: Yes I have fully participated in the care of the patient.: Yes I have reviewed all pertinent clinical information, including history, physical exam and plan: Yes Notes (Text): 01/11/17 19:37 Patient was seen and examined with the resident. Exam, Assessment and Plan were thoroughly gone over with the resident. Rosendo Fofana D.O.
[2017-01-11] MEDS: (Lantus) Insulin Glargine, Recombinant SC SCH (22:41)
--- NOTE | 2017-01-12 03:00 | CON ---
DATE: 01/11/2017 REQUESTING PHYSICIAN: Dr. Fofana. REASON FOR CONSULTATION: Hearing loss. HISTORY: This is a 41-year-old female who complaints of bilateral hearing loss for 4 days, constant, moderate in intensity in both ears. There is some tinnitus on both sides. There is no ear pain. PAST MEDICAL HISTORY: As noted in the chart by me. MEDICATIONS: As noted in the chart by me. PHYSICAL EXAMINATION HEAD: Atraumatic and normocephalic. FACE: Good facial movements bilaterally. CONSTITUTIONAL: Well developed, well nourished. COMMUNICATION: Communicates well and appropriately. EXTERNAL NOSE AND EARS: Deviated septum. No masses. No lesions. No erythema. No edema. Ears: TM intact. No fluids bilaterally. ORAL CAVITY AND OROPHARYNX: No masses. No lesions. No erythema. No edema. LIPS AND GUMS: No masses. No lesions. No erythema. No edema. NECK: Supple. THYROID: No thyromegaly. No goiter. LYMPH NODES: No lymphadenopathy of the neck. GENERAL: The patient is awake, alert, and oriented x3. ASSESSMENT: 1. Hearing loss, possibly secondary to gentamicin use. The patient needs to have hearing test to see what is exactly causing the hearing loss. 2. Deviated septum. PLAN: The patient should get hearing test as an outpatient. Wyatt Trimble MD
[2017-01-12 06:18] LABS: BASO # 0.1 K/uL (0.0-0.2); BASO % 1.4 % (0.0-2.0); EOS # 0.3 K/uL (0.0-0.7); EOS % 6.4 % (0.0-4.0); HEMATOCRIT 27.3 % (34.0-47.0); LYMPH % 40.1 % (20.0-40.0); MEAN CELL VOLUME 92.2 fL (81.0-99.0); MEAN CORPUSCULAR HEMOGLOBIN 30.8 pg (27.0-31.0); MEAN CORPUSCULAR HGB CONC 33.5 g/dL (33.0-37.0); MONO # 0.6 K/uL (0.0-0.8); MONO % 12.4 % (0.0-10.0); RED CELL DISTRIBUTION WIDTH 15.2 % (11.5-14.5)
[2017-01-12 06:34] LABS: ALB/GLOB RATIO 1.2 (1.0-2.1); BILIRUBIN,TOTAL 0.7 mg/dL (0.2-1.3); CALCIUM 8.5 mg/dl (8.6-10.4); MAGNESIUM 2.2 mg/dL (1.6-2.3); PHOSPHOROUS 4.2 mg/dL (2.5-4.5); POTASSIUM 4.3 mmol/L (3.6-5.2); TOTAL PROTEIN 6.8 g/dL (6.3-8.3)
[2017-01-12] MEDS: (Novolin R) Insulin Human Regular 100 units/ml vial SC SCH ×4 (07:57→21:52)
[2017-01-12] MEDS: (Novolog) Insulin Aspart, Recombinant 100 u/ml 10 ml vial SC SCH ×3 (07:57→19:48)
--- NOTE | 2017-01-12 09:51 | CP.PCM.PN ---
Subjective - Date & Time of Evaluation Date of Evaluation: 01/12/17 Time of Evaluation: 09:50 - Subjective Subjective: comfortable in bed afebrile ate breakfast leg cramps last PM ROS no chills fever no chest pain cough no abdomenal pain diarrhea nausea no vomiting anuric Objective - Vital Signs/Intake and Output Vital Signs (last 24 hours): Temp Pulse Resp BP Pulse Ox 98.7 F 80 18 101/48 L 100 01/12/17 07:30 01/12/17 07:30 01/12/17 07:30 01/12/17 07:30 01/12/17 07:30 Intake and Output: 01/12/17 01/12/17 06:59 18:59 Intake Total 310 Balance 310 - Medications Medications: Current Medications Artificial Tears (Artificial Tears) 0 ml OD Q3H PRN PRN Reason: Dry eyes Cinacalcet (Sensipar) 90 mg PO DAILY [facility] Last Admin: 01/11/17 14:12 Dose: 90 mg Clonidine HCl (Catapres) 0.2 mg PO BID [facility] Last Admin: 01/11/17 18:05 Dose: 0.2 mg Epoetin Dewey (Procrit) 10,000 unit IV MWF [facility] Last Admin: 01/11/17 11:47 Dose: 10,000 unit Famotidine (Pepcid) 20 mg PO DAILY [facility] Last Admin: 01/11/17 14:12 Dose: 20 mg Clindamycin Phosphate 600 mg/ (Sodium Chloride) 54 mls @ 100 mls/hr IVPB Q8H [facility] Last Admin: 01/12/17 04:18 Dose: 100 mls/hr Insulin Aspart (Novolog) 4 unit SC ACTID [facility] Last Admin: 01/11/17 16:30 Dose: Not Given Insulin Glargine (Lantus) 6 unit SC HS [facility] Last Admin: 01/11/17 22:41 Dose: 6 units Insulin Human Regular (Novolin R) 0 unit SC ACHS [facility] PRN Reason: Protocol Last Admin: 01/11/17 22:15 Dose: Not Given Labetalol HCl (Normodyne) 300 mg PO BID [facility] Last Admin: 01/11/17 18:05 Dose: 300 mg Minoxidil (Loniten) 10 mg PO BID [facility] Last Admin: 01/11/17 18:04 Dose: 10 mg Morphine Sulfate (Morphine) 1 mg IVP Q4 PRN PRN Reason: Pain, severe (8-10) Last Admin: 01/11/17 23:06 Dose: 1 mg Ondansetron HCl (Zofran Inj) 4 mg IVP Q8 PRN PRN Reason: Nausea/Vomiting Last Admin: 01/11/17 18:05 Dose: 4 mg Pregabalin (Lyrica) 50 mg PO DAILY [facility] Last Admin: 01/11/17 14:12 Dose: 50 mg Saccharomyces Boulardii (Florastor) 250 mg PO BID [facility] Last Admin: 01/11/17 18:05 Dose: 250 mg Sevelamer Carbonate (Renvela) 2,400 mg PO TID [facility] Last Admin: 01/11/17 18:04 Dose: 2,400 mg - Labs Labs: 01/12/17 06:10 01/12/17 06:10 APTT 30 SECONDS (21-34) 01/03/17 05:14 - Constitutional Appears: Well, No Acute Distress - Eye Exam Eye Exam: Normal appearance - ENT Exam ENT Exam: Mucous Membranes Moist - Respiratory Exam Respiratory Exam: Clear to Ausculation Bilateral, NORMAL BREATHING PATTERN - Cardiovascular Exam Cardiovascular Exam: REGULAR RHYTHM - GI/Abdominal Exam GI & Abdominal Exam: Soft. absent: Distended, Tenderness - Extremities Exam Extremities Exam: absent: Calf Tenderness - Back Exam Back Exam: absent: CVA tenderness (L), CVA tenderness (R) - Psychiatric Exam Psychiatric exam: Normal Affect - Skin Skin Exam: Dry Assessment and Plan (1) ESRD (end stage renal disease) on dialysis Status: Acute (2) MSSA (methicillin susceptible Staphylococcus aureus) septicemia Status: Acute (3) MSSA (methicillin susceptible Staphylococcus aureus) infection Status: Acute (4) HTN (hypertension) Status: Chronic - Assessment and Plan (Free Text) Plan: follow ID recommendations next dialysis tentatively 01/14
[2017-01-12] MEDS: Aritificial Tears (15ml) OD PRN (10:53)
[2017-01-12] MEDS: Saccharomyces Boulardi 250 mg Cap PO SCH ×2 (10:54→19:47)
[2017-01-12] MEDS: Labetalol Hydrochloride 300 mg Tab PO SCH ×2 (10:57→19:47)
--- NOTE | 2017-01-12 11:29 | CP.PCM.PN ---
<Hemalatha Bean - Last Filed: 01/12/17 17:11> Subjective - Date & Time of Evaluation Date of Evaluation: 01/12/17 Time of Evaluation: 11:26 - Subjective Subjective: Patieint seen and examined at bedside. She was resting comfortably in bed watching TV. Patient doing well with no new complaints at this time. Patient says she saw the doctor for her ears yesterday and he did not see anything in there and recommended outpatient follow up to her. Patient denies CP, SOB, nasal congestion, fever, chills, AP, N/V/D. Objective - Vital Signs/Intake and Output Vital Signs (last 24 hours): Temp Pulse Resp BP Pulse Ox 98.7 F 80 18 101/48 L 100 01/12/17 07:30 01/12/17 07:30 01/12/17 07:30 01/12/17 07:30 01/12/17 07:30 Intake and Output: 01/12/17 01/12/17 06:59 18:59 Intake Total 310 Balance 310 - Medications Medications: Current Medications Artificial Tears (Artificial Tears) 0 ml OD Q3H PRN PRN Reason: Dry eyes Last Admin: 01/12/17 10:53 Dose: 1 drop Cinacalcet (Sensipar) 90 mg PO DAILY [facility] Last Admin: 01/12/17 10:54 Dose: 90 mg Clonidine HCl (Catapres) 0.2 mg PO BID [facility] Last Admin: 01/12/17 10:57 Dose: Not Given Epoetin Dewey (Procrit) 10,000 unit IV MWF [facility] Last Admin: 01/11/17 11:47 Dose: 10,000 unit Famotidine (Pepcid) 20 mg PO DAILY [facility] Last Admin: 01/12/17 10:54 Dose: 20 mg Clindamycin Phosphate 600 mg/ (Sodium Chloride) 54 mls @ 100 mls/hr IVPB Q8H [facility] Last Admin: 01/12/17 04:18 Dose: 100 mls/hr Insulin Aspart (Novolog) 4 unit SC ACTID [facility] Last Admin: 01/12/17 07:57 Dose: Not Given Insulin Glargine (Lantus) 6 unit SC HS [facility] Last Admin: 01/11/17 22:41 Dose: 6 units Insulin Human Regular (Novolin R) 0 unit SC ACHS [facility] PRN Reason: Protocol Last Admin: 01/12/17 07:57 Dose: Not Given Labetalol HCl (Normodyne) 300 mg PO BID [facility] Last Admin: 01/12/17 10:57 Dose: Not Given Minoxidil (Loniten) 10 mg PO BID [facility] Last Admin: 01/12/17 10:54 Dose: 10 mg Morphine Sulfate (Morphine) 1 mg IVP Q4 PRN PRN Reason: Pain, severe (8-10) Last Admin: 01/11/17 23:06 Dose: 1 mg Ondansetron HCl (Zofran Inj) 4 mg IVP Q8 PRN PRN Reason: Nausea/Vomiting Last Admin: 01/11/17 18:05 Dose: 4 mg Pregabalin (Lyrica) 50 mg PO DAILY [facility] Last Admin: 01/12/17 10:54 Dose: 50 mg Saccharomyces Boulardii (Florastor) 250 mg PO BID [facility] Last Admin: 01/12/17 10:54 Dose: 250 mg Sevelamer Carbonate (Renvela) 2,400 mg PO TID [facility] Last Admin: 01/12/17 10:53 Dose: 2,400 mg - Labs Labs: 01/12/17 06:10 01/12/17 06:10 APTT 30 SECONDS (21-34) 01/03/17 05:14 - Additional Findings Additional findings: - Additional Findings Additional findings: - Additional Findings Additional findings: - Constitutional Appears: Non-toxic, No Acute Distress - Head Exam Head Exam: ATRAUMATIC, NORMAL INSPECTION Additional comments: Hirsutism - Eye Exam Eye Exam: EOMI Additional comments: OD conjuntival erythema resolving - ENT Exam ENT Exam: Mucous Membranes Moist - Respiratory Exam Respiratory Exam: Clear to Ausculation Bilateral, NORMAL BREATHING PATTERN - Cardiovascular Exam Cardiovascular Exam: REGULAR RHYTHM, +S1, +S2, Murmur (CLIFFORD ) - GI/Abdominal Exam GI & Abdominal Exam: Soft, Normal Bowel Sounds. absent: Tenderness - Extremities Exam Extremities Exam: Normal Inspection. absent: Tenderness Additional comments: AV fistula site without pain or erythema - Neurological Exam Neurological Exam: Alert, Awake - Psychiatric Exam Psychiatric exam: Normal Affect, Normal Mood - Skin Skin Exam: Dry, Intact, Normal Color, Warm Assessment and Plan - Assessment and Plan (Free Text) Assessment: Sepsis, Pneumonia, MSSA bacteremia * Criteria: febrile, leukocytosis; secondary to pneumonia; Lactate acid: 1.1--> code sepsis not called in light of normal lactate * CXR - Prominent ill-defined bibasilar airspace opacities * CTA - No definite CT evidence of PE. Mosaic pattern of lung parenchyma, nonspecific. DDX: Air-trapping, interstitial edema, interstitial pneumonia, interstitial lung disease. Clinical correlation is needed. Probable bibasilar atelectasis. Superimposed pneumonia is not excluded. Heterogeneous thyroid. Follow up as clinically warranted * Infectious Disease (Dr. Tesfaye) on the case-->help appreciated * see Abx below * Ceretec Scan (01/09): accumulation of tagged WBCs in right antecubital fossa, otherwise normal physiological distribution * Recommends Ancef 1g prior to MW dialysis and 2g prior to F dialysis once discharged * Nephrology (Dr. Velazquez) on the case-->help appreciated * Blood Culture (01/02/17): Staph Aureus X2-->Sensitive to Rocephin and Vancomycin * Throat Culture (01/03/17): No beta Strep group A isolated * echo (01/04/17) - EF: 70%, LV function WNL, concentric LV hypertrophy, mild TR , borderline pulmonary HTN, No vegetations * Procalcitonin: 51.54--->ordered for procalcitonin tomorrow * Repeat Blood cultures (01/06): Staph aureus * BC (01/11) No growth x24h * IV Abx: * Clindamycin 600 mg q8h * discontinued Vancomycin 1gram IV MWF (started 01/07/17) and Rocephin 1 gram IV Q daily (started 01/03/17) * Ototoxicity: Discontinued Nafcillin 2g IV Q6 (started 01/07) for MSSA and Gentamicin Sulfate 80mg IV MWF (01/03/17) after each dialysis LE Pain * ordered for arterial and venous duplex low suspicion for DVT/arterial problems - negative Elevated LFTs * resolving * not present on admission * Possible 2/2 abx * Monitor and f/u with ID about choice of abx Uncontrolled diabetes * Started on Home Insulin regiment Lantus 6 units SC HS; 4 units SC ACTID * Lyrica 50mg PO daily * Accuchecks ACHS * [id number]: 7.2 Thrombocytopenia * Heme/Onc (Dr. Rodriguez) - recs appreciated * Likely sepsis related as it is improving with antibiotics * f/u heparin AB and serotonin release assay Anemia * Likely 2/2 CKD * Heme/Onc (Dr. Rodriguez) - recs appreciated * ferritin 901, b12 387, folate 9.1 * f/u retic count Hypertension * Minoxidil 10 mg PO BID * Clonidine 0.2 mg PO BID * Labetalol 300mg PO BID * ESRD on dialysis * monitor vital signs * f/u carotid doppler for swishing sound patient hearing in ears - negative ESRD on HD * Nephrology (Dr. Velazquez) on board-->help appreciated * Dialysis schedule is MWF, received full treatment on 01/02/17 prior to coming * Patient should get Gentamycin 80 mg after each dialysis treatment * Renvela 2400mg PO TID * Sutures removed from HD site 01/07 (contacted where they were placed and confirmed removal date) Low Back Pain * ordered for L-S spine xray Constipation * Dulcalax given (01/07) Hirsutism * likely side effect of minoxidil Ear fullness * Carotid doppler - negative * ENT consulted (Dr. Trimble) * Likely ototoxicity * Discontinued Nafcillin 2g IV Q6 (started 01/07) for MSSA and Gentamicin Sulfate 80mg IV MWF (01/03/17) after each dialysis Chest Pressure * JOLANTA negative (01/11) Keratoconjunctivitis Sicca * Artificial tears PRN Prophylactic Care * Chemical anticoagulation contraindicated secondary to thrombocytopenia * Pepcid 20 mg PO daily for GI ppx * Zofran 4 mg Q8 PRN nausea * PT/OT eval <Rosendo Fofana - Last Filed: 01/12/17 19:32> Objective - Vital Signs/Intake and Output Vital Signs (last 24 hours): Temp Pulse Resp BP Pulse Ox 97.5 F L 76 20 154/57 H 95 01/12/17 16:00 01/12/17 16:00 01/12/17 16:00 01/12/17 16:00 01/12/17 16:00 Intake and Output: 01/12/17 01/13/17 18:59 06:59 Intake Total 650 Balance 650 - Medications Medications: Current Medications Artificial Tears (Artificial Tears) 0 ml OD Q3H PRN PRN Reason: Dry eyes Last Admin: 01/12/17 10:53 Dose: 1 drop Cinacalcet (Sensipar) 90 mg PO DAILY [facility] Last Admin: 01/12/17 10:54 Dose: 90 mg Clonidine HCl (Catapres) 0.2 mg PO BID [facility] Last Admin: 01/12/17 10:57 Dose: Not Given Epoetin Dewey (Procrit) 10,000 unit IV MWF [facility] Last Admin: 01/11/17 11:47 Dose: 10,000 unit Famotidine (Pepcid) 20 mg PO DAILY [facility] Last Admin: 01/12/17 10:54 Dose: 20 mg Clindamycin Phosphate 600 mg/ (Sodium Chloride) 54 mls @ 100 mls/hr IVPB Q8H [facility] Last Admin: 01/12/17 12:59 Dose: 100 mls/hr Insulin Aspart (Novolog) 4 unit SC ACTID [facility] Last Admin: 01/12/17 12:30 Dose: 4 unit Insulin Glargine (Lantus) 6 unit SC HS [facility] Last Admin: 01/11/17 22:41 Dose: 6 units Insulin Human Regular (Novolin R) 0 unit SC ACHS [facility] PRN Reason: Protocol Last Admin: 01/12/17 12:30 Dose: 1 unit Labetalol HCl (Normodyne) 300 mg PO BID [facility] Last Admin: 01/12/17 10:57 Dose: Not Given Minoxidil (Loniten) 10 mg PO BID [facility] Last Admin: 01/12/17 10:54 Dose: 10 mg Morphine Sulfate (Morphine) 1 mg IVP Q4 PRN PRN Reason: Pain, severe (8-10) Last Admin: 01/11/17 23:06 Dose: 1 mg Ondansetron HCl (Zofran Inj) 4 mg IVP Q8 PRN PRN Reason: Nausea/Vomiting Last Admin: 01/11/17 18:05 Dose: 4 mg Pregabalin (Lyrica) 50 mg PO DAILY [facility] Last Admin: 01/12/17 10:54 Dose: 50 mg Saccharomyces Boulardii (Florastor) 250 mg PO BID [facility] Last Admin: 01/12/17 10:54 Dose: 250 mg Sevelamer Carbonate (Renvela) 2,400 mg PO TID [facility] Last Admin: 01/12/17 13:00 Dose: 2,400 mg - Labs Labs: 01/12/17 06:10 01/12/17 06:10 APTT 30 SECONDS (21-34) 01/03/17 05:14 Attending/Attestation - Attestation I have personally seen and examined this patient.: Yes I have fully participated in the care of the patient.: Yes I have reviewed all pertinent clinical information, including history, physical exam and plan: Yes Notes (Text): 01/12/17 19:28 Patient was seen and examined at 3 PM 01/12/17 Exam, assessment and plan were thoroughly gone over with the resident. Also on ROS: pulsing sensation in the bilateral ears decreased hearing in the bilateral ears NO tinnitus NO bowel movement in 2 days Blood cultures 01/02/17 and 01/06/17 showed Staph and repeat Blood Culture is negative to date. As long as this repeat blood culture remains negative at least 72 hours, Medicine Team will reach out to LAYO Tesfaye concerning discharge planning.
[2017-01-12] MEDS: (Lantus) Insulin Glargine, Recombinant SC SCH (21:51)
[2017-01-13 08:25] LABS: BASO # 0.1 K/uL (0.0-0.2); BASO % 1.2 % (0.0-2.0); EOS # 0.4 K/uL (0.0-0.7); EOS % 7.3 % (0.0-4.0); HEMATOCRIT 27.4 % (34.0-47.0); LYMPH % 34.9 % (20.0-40.0); MEAN CELL VOLUME 92.5 fL (81.0-99.0); MEAN CORPUSCULAR HGB CONC 33.5 g/dL (33.0-37.0); MEAN PLATELET VOLUME 9.8 fL (7.2-11.7); MONO # 0.5 K/uL (0.0-0.8); MONO % 9.6 % (0.0-10.0); NRBC % 0.1 % (0.0-2.0); RED CELL DISTRIBUTION WIDTH 15.5 % (11.5-14.5); WHITE BLOOD COUNT 5.7 K/uL (4.8-10.8)
[2017-01-13 08:40] LABS: POTASSIUM 5.2 mmol/L (3.6-5.2)
[2017-01-13 08:42] LABS: ALB/GLOB RATIO 1.2 (1.0-2.1); BILIRUBIN,TOTAL 0.8 mg/dL (0.2-1.3); PHOSPHOROUS 5.1 mg/dL (2.5-4.5); TOTAL PROTEIN 7.3 g/dL (6.3-8.3)
[2017-01-13 08:43] LABS: CALCIUM 8.3 mg/dl (8.6-10.4); MAGNESIUM 2.4 mg/dL (1.6-2.3)
[2017-01-13] MEDS: (Novolog) Insulin Aspart, Recombinant 100 u/ml 10 ml vial SC SCH ×3 (08:43→17:30)
[2017-01-13] MEDS: (Novolin R) Insulin Human Regular 100 units/ml vial SC SCH (08:44)
[2017-01-13] MEDS: Aritificial Tears (15ml) OD PRN ×2 (09:10→12:48)
[2017-01-13] MEDS: Saccharomyces Boulardi 250 mg Cap PO SCH ×2 (09:10→18:26)
[2017-01-13] MEDS: Labetalol Hydrochloride 300 mg Tab PO SCH ×2 (09:11→18:26)
[2017-01-13] MEDS ORDERED: Bisacodyl 5mg EC Tab PO ONE (11:39)
--- NOTE | 2017-01-13 11:54 | CP.PCM.PN ---
<VikasHemalatha - Last Filed: 01/13/17 11:49> Subjective - Date & Time of Evaluation Date of Evaluation: 01/13/17 Time of Evaluation: 11:49 - Subjective Subjective: Patieint seen and examined at bedside. She was resting comfortably in bed sleeping when I arrived. Patient doing well with no new complaints at this time. Patient says she still has the sensation and swishing sound in her ears that has not gotten better or worse. Patient says she no longer feels nauseous today and is tolerating her diet. Patient denies CP, SOB, nasal congestion, fever, chills, AP, N/V/D. Objective - Vital Signs/Intake and Output Vital Signs (last 24 hours): Temp Pulse Resp BP Pulse Ox 98.2 F 80 18 146/58 L 96 01/13/17 07:00 01/13/17 07:00 01/13/17 07:00 01/13/17 07:00 01/13/17 07:00 Intake and Output: 01/13/17 01/13/17 06:59 18:59 Intake Total 250 Balance 250 - Medications Medications: Current Medications Artificial Tears (Artificial Tears) 0 ml OD Q3H PRN PRN Reason: Dry eyes Last Admin: 01/13/17 09:10 Dose: 1 drop Cinacalcet (Sensipar) 90 mg PO DAILY [facility] Last Admin: 01/13/17 09:12 Dose: 90 mg Clonidine HCl (Catapres) 0.2 mg PO BID [facility] Last Admin: 01/13/17 09:11 Dose: 0.2 mg Epoetin Dewey (Procrit) 10,000 unit IV MWF [facility] Last Admin: 01/11/17 11:47 Dose: 10,000 unit Famotidine (Pepcid) 20 mg PO DAILY [facility] Last Admin: 01/13/17 09:11 Dose: 20 mg Clindamycin Phosphate 600 mg/ (Sodium Chloride) 54 mls @ 100 mls/hr IVPB Q8H [facility] Last Admin: 01/13/17 05:21 Dose: 100 mls/hr Insulin Aspart (Novolog) 4 unit SC ACTID [facility] Last Admin: 01/13/17 08:43 Dose: 4 unit Insulin Glargine (Lantus) 6 unit SC HS [facility] Last Admin: 01/12/17 21:51 Dose: 6 units Labetalol HCl (Normodyne) 300 mg PO BID [facility] Last Admin: 01/13/17 09:11 Dose: 300 mg Minoxidil (Loniten) 10 mg PO BID [facility] Last Admin: 01/13/17 09:12 Dose: 10 mg Morphine Sulfate (Morphine) 1 mg IVP Q4 PRN PRN Reason: Pain, severe (8-10) Last Admin: 01/11/17 23:06 Dose: 1 mg Ondansetron HCl (Zofran Inj) 4 mg IVP Q8 PRN PRN Reason: Nausea/Vomiting Last Admin: 01/11/17 18:05 Dose: 4 mg Pregabalin (Lyrica) 50 mg PO DAILY [facility] Last Admin: 01/13/17 09:11 Dose: 50 mg Saccharomyces Boulardii (Florastor) 250 mg PO BID [facility] Last Admin: 01/13/17 09:10 Dose: 250 mg Sevelamer Carbonate (Renvela) 2,400 mg PO TID [facility] Last Admin: 01/13/17 09:11 Dose: 2,400 mg - Labs Labs: 01/13/17 08:09 01/13/17 08:09 APTT 30 SECONDS (21-34) 01/03/17 05:14 - Additional Findings Additional findings: - Constitutional Appears: Non-toxic, No Acute Distress - Head Exam Head Exam: ATRAUMATIC, NORMAL INSPECTION Additional comments: Hirsutism - ENT Exam ENT Exam: Mucous Membranes Moist - Respiratory Exam Respiratory Exam: Clear to Ausculation Bilateral, NORMAL BREATHING PATTERN - Cardiovascular Exam Cardiovascular Exam: REGULAR RHYTHM, +S1, +S2, Murmur (CLIFFORD) - GI/Abdominal Exam GI & Abdominal Exam: Soft, Normal Bowel Sounds. absent: Tenderness - Extremities Exam Extremities Exam: Normal Inspection. absent: Tenderness Additional comments: AV fistula site without pain or erythema - Neurological Exam Neurological Exam: Alert, Awake - Psychiatric Exam Psychiatric exam: Normal Affect, Normal Mood - Skin Skin Exam: Dry, Intact, Normal Color, Warm Assessment and Plan - Assessment and Plan (Free Text) Assessment: Sepsis, Pneumonia, MSSA bacteremia * Criteria: febrile, leukocytosis; secondary to pneumonia; Lactate acid: 1.1--> code sepsis not called in light of normal lactate * CXR - Prominent ill-defined bibasilar airspace opacities * CTA - No definite CT evidence of PE. Mosaic pattern of lung parenchyma, nonspecific. DDX: Air-trapping, interstitial edema, interstitial pneumonia, interstitial lung disease. Clinical correlation is needed. Probable bibasilar atelectasis. Superimposed pneumonia is not excluded. Heterogeneous thyroid. Follow up as clinically warranted * Infectious Disease (Dr. Tesfaye) on the case-->help appreciated * see Abx below * Ceretec Scan (01/09): accumulation of tagged WBCs in right antecubital fossa, otherwise normal physiological distribution * Recommends Ancef 1g prior to MW dialysis and 2g prior to F dialysis once discharged * Nephrology (Dr. Velazquez) on the case-->help appreciated * Blood Culture (01/02/17): Staph Aureus X2-->Sensitive to Rocephin and Vancomycin * Throat Culture (01/03/17): No beta Strep group A isolated * echo (01/04/17) - EF: 70%, LV function WNL, concentric LV hypertrophy, mild TR , borderline pulmonary HTN, No vegetations * Procalcitonin: 51.54 (01/03) and 61.03 (01/06) * Repeat Blood cultures (01/06): Staph aureus * BC (01/11) from dialysis No growth x48h * IV Abx: * Clindamycin 600 mg q8h * discontinued Vancomycin 1gram IV MWF (started 01/07/17) and Rocephin 1 gram IV Q daily (started 01/03/17) * Ototoxicity: Discontinued Nafcillin 2g IV Q6 (started 01/07) for MSSA and Gentamicin Sulfate 80mg IV MWF (01/03/17) after each dialysis LE Pain * ordered for arterial and venous duplex low suspicion for DVT/arterial problems - negative Elevated LFTs * resolving * not present on admission * Possible 2/2 abx * Monitor Uncontrolled diabetes * Started on Home Insulin regiment Lantus 6 units SC HS; 4 units SC ACTID * Lyrica 50mg PO daily * Accuchecks ACHS * [id number]: 7.2 Thrombocytopenia * Heme/Onc (Dr. Rodriguez) - recs appreciated * Likely sepsis related as it is improving with antibiotics * f/u heparin AB and serotonin release assay Anemia * Likely 2/2 CKD * Heme/Onc (Dr. Rodriguez) - recs appreciated * ferritin 901, b12 387, folate 9.1 * f/u retic count Hypertension * Minoxidil 10 mg PO BID * Clonidine 0.2 mg PO BID * Labetalol 300mg PO BID * ESRD on dialysis * monitor vital signs * f/u carotid doppler for swishing sound patient hearing in ears - negative ESRD on HD * Nephrology (Dr. Velazquez) on board-->help appreciated * Dialysis schedule is MWF, received full treatment on 01/02/17 prior to coming * Patient should get Gentamycin 80 mg after each dialysis treatment * Renvela 2400mg PO TID * Sutures removed from HD site 01/07 (contacted where they were placed and confirmed removal date) Low Back Pain * ordered for L-S spine xray Constipation * Dulcalax given (01/07) Hirsutism * likely side effect of minoxidil Ear fullness * Carotid doppler - negative * ENT consulted (Dr. Trimble) * Likely ototoxicity * Discontinued Nafcillin 2g IV Q6 (started 01/07) for MSSA and Gentamicin Sulfate 80mg IV MWF (01/03/17) after each dialysis Chest Pressure * JOLANTA negative (01/11) Keratoconjunctivitis Sicca * Artificial tears PRN Prophylactic Care * Chemical anticoagulation contraindicated secondary to thrombocytopenia * Pepcid 20 mg PO daily for GI ppx * Zofran 4 mg Q8 PRN nausea * PT/OT eval Disposition: Patient will need to follow up with ENT as and outpatient for ototoxicity. Patient will likely go home tomorrow and start Ancef 1g prior to MW dialysis and 2g prior to F dialysis once discharged per Dr. Madrid. <Rosendo Fofana - Last Filed: 01/13/17 20:11> Objective - Vital Signs/Intake and Output Vital Signs (last 24 hours): Temp Pulse Resp BP Pulse Ox 98.1 F 81 18 131/58 L 100 01/13/17 15:37 01/13/17 15:37 01/13/17 15:37 01/13/17 15:37 01/13/17 15:37 - Medications Medications: Current Medications Artificial Tears (Artificial Tears) 0 ml OD Q3H PRN PRN Reason: Dry eyes Last Admin: 01/13/17 12:48 Dose: 1 drop Cinacalcet (Sensipar) 90 mg PO DAILY [facility] Last Admin: 01/13/17 09:12 Dose: 90 mg Clonidine HCl (Catapres) 0.2 mg PO BID [facility] Last Admin: 01/13/17 18:26 Dose: 0.2 mg Epoetin Dewey (Procrit) 10,000 unit IV MWF [facility] Last Admin: 01/11/17 11:47 Dose: 10,000 unit Famotidine (Pepcid) 20 mg PO DAILY [facility] Last Admin: 01/13/17 09:11 Dose: 20 mg Clindamycin Phosphate 600 mg/ (Sodium Chloride) 54 mls @ 100 mls/hr IVPB Q8H [facility] Last Admin: 01/13/17 12:47 Dose: 100 mls/hr Insulin Aspart (Novolog) 4 unit SC ACTID [facility] Last Admin: 01/13/17 17:30 Dose: Not Given Insulin Glargine (Lantus) 6 unit SC HS [facility] Last Admin: 01/12/17 21:51 Dose: 6 units Labetalol HCl (Normodyne) 300 mg PO BID [facility] Last Admin: 01/13/17 18:26 Dose: 300 mg Minoxidil (Loniten) 10 mg PO BID [facility] Last Admin: 01/13/17 18:26 Dose: 10 mg Morphine Sulfate (Morphine) 1 mg IVP Q4 PRN PRN Reason: Pain, severe (8-10) Last Admin: 01/11/17 23:06 Dose: 1 mg Ondansetron HCl (Zofran Inj) 4 mg IVP Q8 PRN PRN Reason: Nausea/Vomiting Last Admin: 01/11/17 18:05 Dose: 4 mg Pregabalin (Lyrica) 50 mg PO DAILY [facility] Last Admin: 01/13/17 09:11 Dose: 50 mg Saccharomyces Boulardii (Florastor) 250 mg PO BID [facility] Last Admin: 01/13/17 18:26 Dose: 250 mg Sevelamer Carbonate (Renvela) 2,400 mg PO TID [facility] Last Admin: 01/13/17 18:26 Dose: 2,400 mg - Labs Labs: 01/13/17 08:09 01/13/17 08:09 APTT 30 SECONDS (21-34) 01/03/17 05:14 Attending/Attestation - Attestation I have personally seen and examined this patient.: Yes I have fully participated in the care of the patient.: Yes I have reviewed all pertinent clinical information, including history, physical exam and plan: Yes Notes (Text): 01/13/17 20:07 Patient was seen and examined at shortly after resident 01/13/17 Exam, assessment and plan were thoroughly gone over with the resident. Also on ROS: pulsing sensation in the bilateral ears decreased hearing in the bilateral ears NO tinnitus NO bowel movement in 3 days Dulcolax 5 mg PO x 1 dose ordered Blood cultures 01/02/17 and 01/06/17 showed Staph and repeat Blood Culture is negative to date. As long as this repeat blood culture remains negative at least 72 hours, Medicine Team will reach out to ID Dr. Tesfaye concerning discharge planning. If this is the case, then please confirm with Dr. Tesfaye the following regimen: Ancef 1 gm IV on HD days Saturday and Saturday and Ancef 2 gm IV on HD day Saturday for a total of 6 weeks from the time that antibiotics were initiated during this hospital admission. When patient is ready for discharge, she will also have to have an outpatient audiogram. Rosendo Fofana D.O.
[2017-01-13] MEDS: (Lantus) Insulin Glargine, Recombinant SC SCH (22:11)
--- NOTE | 2017-01-14 00:56 | CP.PCM.PN ---
Subjective - Date & Time of Evaluation Date of Evaluation: 01/12/17 Time of Evaluation: 16:30 - Subjective Subjective: Feeling better Objective - Vital Signs/Intake and Output Vital Signs (last 24 hours): Temp Pulse Resp BP Pulse Ox 98.1 F 81 18 131/58 L 100 01/13/17 15:37 01/13/17 15:37 01/13/17 15:37 01/13/17 15:37 01/13/17 15:37 Intake and Output: 01/13/17 01/14/17 18:59 06:59 Intake Total 150 Balance 150 - Medications Medications: Current Medications Artificial Tears (Artificial Tears) 0 ml OD Q3H PRN PRN Reason: Dry eyes Last Admin: 01/13/17 12:48 Dose: 1 drop Cinacalcet (Sensipar) 90 mg PO DAILY [facility] Last Admin: 01/13/17 09:12 Dose: 90 mg Clonidine HCl (Catapres) 0.2 mg PO BID [facility] Last Admin: 01/13/17 18:26 Dose: 0.2 mg Epoetin Dewey (Procrit) 10,000 unit IV MWF [facility] Last Admin: 01/11/17 11:47 Dose: 10,000 unit Famotidine (Pepcid) 20 mg PO DAILY [facility] Last Admin: 01/13/17 09:11 Dose: 20 mg Clindamycin Phosphate 600 mg/ (Sodium Chloride) 54 mls @ 100 mls/hr IVPB Q8H [facility] Last Admin: 01/13/17 21:30 Dose: 100 mls/hr Insulin Aspart (Novolog) 4 unit SC ACTID [facility] Last Admin: 01/13/17 17:30 Dose: Not Given Insulin Glargine (Lantus) 6 unit SC HS [facility] Last Admin: 01/13/17 22:11 Dose: 6 units Labetalol HCl (Normodyne) 300 mg PO BID [facility] Last Admin: 01/13/17 18:26 Dose: 300 mg Minoxidil (Loniten) 10 mg PO BID [facility] Last Admin: 01/13/17 18:26 Dose: 10 mg Morphine Sulfate (Morphine) 1 mg IVP Q4 PRN PRN Reason: Pain, severe (8-10) Last Admin: 01/11/17 23:06 Dose: 1 mg Ondansetron HCl (Zofran Inj) 4 mg IVP Q8 PRN PRN Reason: Nausea/Vomiting Last Admin: 01/11/17 18:05 Dose: 4 mg Pregabalin (Lyrica) 50 mg PO DAILY [facility] Last Admin: 01/13/17 09:11 Dose: 50 mg Saccharomyces Boulardii (Florastor) 250 mg PO BID [facility] Last Admin: 01/13/17 18:26 Dose: 250 mg Sevelamer Carbonate (Renvela) 2,400 mg PO TID [facility] Last Admin: 01/13/17 18:26 Dose: 2,400 mg - Labs Labs: 01/13/17 08:09 01/13/17 08:09 APTT 30 SECONDS (21-34) 01/03/17 05:14 - Head Exam Head Exam: ATRAUMATIC - Eye Exam Eye Exam: Normal appearance - ENT Exam ENT Exam: Mucous Membranes Dry - Respiratory Exam Respiratory Exam: NORMAL BREATHING PATTERN - Cardiovascular Exam Cardiovascular Exam: +S1, +S2 - GI/Abdominal Exam GI & Abdominal Exam: Normal Bowel Sounds - Extremities Exam Extremities Exam: Normal Inspection Assessment and Plan (1) Anemia Assessment & Plan: renal disease and chronic disease Status: Acute (2) Thrombocytopenia Assessment & Plan: resolved Status: Acute
[2017-01-14] MEDS: (Novolog) Insulin Aspart, Recombinant 100 u/ml 10 ml vial SC SCH ×3 (08:30→17:49)
--- NOTE | 2017-01-14 08:59 | VASCLAB ---
PROCEDURE: Lower Extremity Venous Duplex Exam. HISTORY: lower extremity pain, SOB PRIORS: None. TECHNIQUE: Bilateral common femoral, femoral, popliteal and posterior tibial, peroneal and great saphenous veins were evaluated. Flow was assessed with color Doppler, compressibility, assessment of phasic flow and augmentation response. Report prepared by Capo Leahy, LASHELL, RVT FINDINGS: RIGHT: 1. Common Femoral Vein: 1.1. Compressibility - Fully compressible: Thrombus - None : Flow - Phasic: Augmentation -Normal: Reflux - None. 2. Femoral Vein: 2.1. Compressibility - Fully compressible: Thrombus - None : Flow - Phasic: Augmentation -Normal: Reflux - None. 3. Popliteal Vein: 3.1. Compressibility - Fully compressible: Thrombus - None : Flow - Phasic: Augmentation -Normal: Reflux - None. 4. Posterior Tibial Vein: 4.1. Compressibility - Fully compressible: Thrombus - None: Flow - Phasic: Augmentation -Normal: Reflux - None. 5. Peroneal Vein: 5.1. Compressibility - Fully compressible: Thrombus - None: Flow - Phasic: Augmentation -Normal: Reflux - None. 6. Great Saphenous Vein: 6.1. Compressibility - Fully compressible: Thrombus - None: Flow - Phasic: Augmentation - Normal: Reflux - None. LEFT: 1. Common Femoral Vein: 1.1. Compressibility - Fully compressible: Thrombus - None: Flow - Phasic: Augmentation -Normal: Reflux - None. 2. Femoral Vein: 2.1. Compressibility - Fully compressible: Thrombus - None: Flow - Phasic: Augmentation -Normal: Reflux - None. 3. Popliteal Vein: 3.1. Compressibility - Fully compressible: Thrombus - None : Flow - Phasic: Augmentation -Normal: Reflux - None. 4. Posterior Tibial Vein: 4.1. Compressibility - Fully compressible: Thrombus - None: Flow - Phasic: Augmentation -Normal: Reflux - None. 5. Peroneal Vein: 5.1. Compressibility - Fully compressible: Thrombus - None: Flow - Phasic: Augmentation -Normal: Reflux - None. 6. Great Saphenous Vein: 6.1. Compressibility - Fully compressible: Thrombus - None: Flow - Phasic: Augmentation - Normal: Reflux - None. OTHER FINDINGS: Right: None significant. Left: None significant. IMPRESSION: Right: No evidence of deep or superficial vein thrombosis of the right lower extremity. Normal valve function noted of the right side. Left: No evidence of deep or superficial vein thrombosis of the left lower extremity. Normal valve function noted of the left side.
--- NOTE | 2017-01-14 08:59 | VASCLAB ---
PROCEDURE: HISTORY: carotid bruit COMPARISON: None available. TECHNIQUE: Grayscale and duplex Doppler evaluation of the cervical carotid and vertebral arteries were performed. The common carotid, carotid bifurcations and cervical Internal Carotid Artery (ICA) and proximal External Carotid Artery (ECA) were evaluated. The vertebral arteries were evaluated for gross patency and flow direction. Report prepared by Capo Leahy, BS, RVT FINDINGS: RIGHT CAROTID ARTERIES: 1. Common Carotid Artery: No significant focal plaque formation of the right common carotid artery. Maximum Peak Systolic velocity: 107 cm/sec: End-diastolic velocity 19 cm/sec. 2. Carotid Bifurcation: plaque formation. Maximum Peak Systolic velocity: 100 cm/sec: End-diastolic velocity 13 cm/sec. 3. Internal Carotid Artery: Plaque description: 3.1. Proximal Segment: Peak systolic velocity 105 cm/sec: End-diastolic velocity 23 cm/sec - % stenosis 0-15% 3.2. Middle Segment: Peak systolic velocity 137 cm/sec: End-diastolic velocity 35 cm/sec - % stenosis 0-15% 3.3. Distal Segment: Peak systolic velocity 98 cm/sec: End-diastolic velocity 17 cm/sec - % stenosis 0-15% 4. External Carotid Artery: No significant focal plaque formation. Peak systolic velocity 119 cm/sec 5. ICA/CCA Ratio: 1.3 LEFT CAROTID ARTERIES: 1. Common Carotid Artery: No significant focal plaque formation of the left common carotid artery. Maximum Peak Systolic velocity: 110 cm/sec: End-diastolic velocity 25 cm/sec. 2. Carotid Bifurcation: plaque formation. Maximum Peak Systolic velocity: 125 cm/sec: End-diastolic velocity 23 cm/sec. 3. Internal Carotid Artery: Plaque description: 3.1. Proximal Segment: Peak systolic velocity 102 cm/sec: End-diastolic velocity 23 cm/sec - % stenosis 0-15% 3.2. Middle Segment: Peak systolic velocity 121 cm/sec: End-diastolic velocity 33 cm/sec - % stenosis 0-15% 3.3. Distal Segment: Peak systolic velocity 123 cm/sec: End-diastolic velocity 27 cm/sec - % stenosis 0-15% 4. External Carotid Artery: No significant focal plaque formation. Peak systolic velocity 151 cm/sec 5. ICA/CCA Ratio: 1.1 VERTEBRAL ARTERIES: 1. Right Vertebral Artery: The right vertebral artery flow direction is antegrade. 2. Left Vertebral Artery: The left vertebral artery flow direction is antegrade. OTHER FINDINGS: 1. Right Brachial Blood pressure: mmHg. 2. Left Brachial Blood pressure: 120 mmHg. IMPRESSION: RIGHT: Duplex scan does not suggest hemodynamically significant stenosis of the right extracranial carotid arteries. LEFT: Duplex scan does not suggest hemodynamically significant stenosis of the left extracranial carotid arteries.
--- NOTE | 2017-01-14 09:00 | VASCLAB ---
STUDY DESCRIPTION: HISTORY: lower extremity pain PRIORS: None. TECHNIQUE: Pulse volume recording waveforms and segmental pressures of bilateral lower extremities at multiple levels were obtained. Ankle Brachial Indices (ABIs) were calculated. Report prepared by LASHELL Tapia, RVT RIGHT LOWER EXTREMITY: * Brachial artery: Pressure - mmHg. * High thigh: Pressure - 220 mmHg: Ratio - NC: PVR waveform - Pulsatile * Low thigh: Pressure - 137 mmHg: Ratio - 1.14 PVR waveform: Pulsatile * Calf: Pressure - 220 mmHg: Ratio - NC PVR waveform: Pulsatile * Posterior tibial Artery: Pressure - 220 mmHg: Ratio - NC PVR waveform: Pulsatile * Dorsalis pedis Artery: Pressure - 147 mmHg: Ratio - 1.23 PVR waveform: Pulsatile * Great toe: Pressure - mmHg: Ratio - PVR waveform: Ankle brachial index (MIHIR): NC LEFT LOWER EXTREMITY: * Brachial artery: Pressure - 120 mmHg. * High thigh: Pressure - 152 mmHg: Ratio - 1.27: PVR waveform - Pulsatile * Low thigh: Pressure - 142 mmHg: Ratio - 1.18 PVR waveform: Pulsatile * Calf: Pressure - 142 mmHg: Ratio - 1.18 PVR waveform: Pulsatile * Posterior tibial Artery: Pressure - 151 mmHg: Ratio - 1.26 PVR waveform: Pulsatile * Dorsalis pedis Artery: Pressure - 220 mmHg: Ratio - NC PVR waveform: Pulsatile * Great toe: Pressure - mmHg: Ratio - PVR waveform: Ankle brachial index (MIHIR): NC OTHER FINDINGS: Right: Left: IMPRESSION: Right: The ankle pressure index of the right lower extremity is non-diagnostic due to possible arterial wall calcifications. Left: The ankle pressure index of the left lower extremity is non-diagnostic due to possible arterial wall calcifications.
[2017-01-14 10:02] LABS: BASO # 0.1 K/uL (0.0-0.2); BASO % 1.1 % (0.0-2.0); EOS # 0.4 K/uL (0.0-0.7); EOS % 5.7 % (0.0-4.0); LYMPH # 1.9 K/uL (1.0-4.3); MEAN CELL VOLUME 92.9 fL (81.0-99.0); MEAN CORPUSCULAR HEMOGLOBIN 30.8 pg (27.0-31.0); MEAN CORPUSCULAR HGB CONC 33.2 g/dL (33.0-37.0); MEAN PLATELET VOLUME 9.7 fL (7.2-11.7); MONO # 0.5 K/uL (0.0-0.8); MONO % 7.9 % (0.0-10.0); NRBC % 0.1 % (0.0-2.0); RED CELL DISTRIBUTION WIDTH 15.1 % (11.5-14.5); WHITE BLOOD COUNT 6.2 K/uL (4.8-10.8)
[2017-01-14 10:23] LABS: ALB/GLOB RATIO 1.2 (1.0-2.1); BILIRUBIN,TOTAL 0.9 mg/dL (0.2-1.3); TOTAL PROTEIN 7.5 g/dL (6.3-8.3)
[2017-01-14 10:24] LABS: CALCIUM 7.5 mg/dl (8.6-10.4); MAGNESIUM 2.5 mg/dL (1.6-2.3); PHOSPHOROUS 6.1 mg/dL (2.5-4.5)
[2017-01-14] MEDS: Labetalol Hydrochloride 300 mg Tab PO SCH ×2 (10:43→17:32)
[2017-01-14] MEDS: Saccharomyces Boulardi 250 mg Cap PO SCH ×2 (10:43→17:32)
[2017-01-14] MEDS: Epoetin Alfa 10,000 unit/ml Dialysis IV SCH (11:04)
--- NOTE | 2017-01-14 11:43 | CP.PCM.PN ---
Subjective - Date & Time of Evaluation Date of Evaluation: 01/14/17 Time of Evaluation: 11:41 - Subjective Subjective: seen and examined wants extra hd tomorrow for fluid overload estimated uf 4L no n/v/d/ sob/cough/fevers/chills/headache Objective - Vital Signs/Intake and Output Vital Signs (last 24 hours): Temp Pulse Resp BP Pulse Ox 98 F 75 18 136/58 L 97 01/14/17 09:30 01/14/17 10:09 01/14/17 10:09 01/14/17 10:09 01/14/17 10:09 Intake and Output: 01/14/17 01/14/17 06:59 18:59 Intake Total 210 Balance 210 - Medications Medications: Current Medications Artificial Tears (Artificial Tears) 0 ml OD Q3H PRN PRN Reason: Dry eyes Last Admin: 01/13/17 12:48 Dose: 1 drop Cinacalcet (Sensipar) 90 mg PO DAILY [facility] Last Admin: 01/14/17 10:44 Dose: Not Given Clonidine HCl (Catapres) 0.2 mg PO BID [facility] Last Admin: 01/14/17 10:43 Dose: Not Given Epoetin Dewey (Procrit) 10,000 unit IV MWF [facility] Last Admin: 01/14/17 11:04 Dose: 10,000 unit Famotidine (Pepcid) 20 mg PO DAILY [facility] Last Admin: 01/14/17 10:44 Dose: Not Given Clindamycin Phosphate 600 mg/ (Sodium Chloride) 54 mls @ 100 mls/hr IVPB Q8H [facility] Last Admin: 01/14/17 04:55 Dose: 100 mls/hr Insulin Aspart (Novolog) 4 unit SC ACTID [facility] Last Admin: 01/14/17 11:21 Dose: Not Given Insulin Glargine (Lantus) 6 unit SC HS [facility] Last Admin: 01/13/17 22:11 Dose: 6 units Labetalol HCl (Normodyne) 300 mg PO BID [facility] Last Admin: 01/14/17 10:43 Dose: Not Given Minoxidil (Loniten) 10 mg PO BID [facility] Last Admin: 01/14/17 10:43 Dose: Not Given Morphine Sulfate (Morphine) 1 mg IVP Q4 PRN PRN Reason: Pain, severe (8-10) Last Admin: 01/11/17 23:06 Dose: 1 mg Ondansetron HCl (Zofran Inj) 4 mg IVP Q8 PRN PRN Reason: Nausea/Vomiting Last Admin: 01/11/17 18:05 Dose: 4 mg Pregabalin (Lyrica) 50 mg PO DAILY [facility] Last Admin: 01/14/17 10:43 Dose: Not Given Saccharomyces Boulardii (Florastor) 250 mg PO BID [facility] Last Admin: 01/14/17 10:43 Dose: Not Given Sevelamer Carbonate (Renvela) 2,400 mg PO TID [facility] Last Admin: 01/14/17 10:44 Dose: Not Given - Labs Labs: 01/14/17 09:59 01/14/17 09:59 APTT 30 SECONDS (21-34) 01/03/17 05:14 - Constitutional Appears: No Acute Distress - Head Exam Head Exam: NORMAL INSPECTION - Eye Exam Eye Exam: Normal appearance - ENT Exam ENT Exam: Mucous Membranes Moist, Normal Exam - Neck Exam Neck Exam: Normal Inspection - Respiratory Exam Respiratory Exam: Clear to Ausculation Bilateral, NORMAL BREATHING PATTERN - Cardiovascular Exam Cardiovascular Exam: REGULAR RHYTHM, RRR - GI/Abdominal Exam GI & Abdominal Exam: Soft, Normal Bowel Sounds - Extremities Exam Extremities Exam: Normal Inspection (lue avf) Assessment and Plan (1) ESRD (end stage renal disease) on dialysis Status: Acute (2) Fever Status: Acute (3) Hypertensive chronic kidney disease with stage 5 chronic kidney disease or end stage renal disease Status: Acute (4) MSSA (methicillin susceptible Staphylococcus aureus) septicemia Status: Acute (5) Back pain Status: Acute - Assessment and Plan (Free Text) Assessment: -blood cultures from 01/06, 01/07 and 01/11 negative -dc per primary team -termination clerk antibiotics -recommend fluid restriction
--- NOTE | 2017-01-14 13:18 | CP.PCM.DIS ---
Provider - Provider Date of Admission: 01/03/17 03:07 Attending physician: Rosendo Fofana MD Consults: Nephro: Marcus ID: Brien Vascular: Tushar Heme/onc: Jennifer ENT: Atilio Time Spent in preparation of Discharge (in minutes): 55 Hospital Course - Lab Results Lab Results: Micro Results 01/11/17 10:30 Blood-During Dialysis Blood Culture - Preliminary NO GROWTH AFTER 3 DAYS 01/11/17 19:00 Blood Blood Culture - Preliminary NO GROWTH AFTER 48 HOURS 01/07/17 16:00 Blood-During Dialysis Blood Culture - Final NO GROWTH AFTER 5 DAYS 01/07/17 16:00 Blood-During Dialysis Gram Stain - Final TEST NOT PERFORMED 01/06/17 08:30 Blood-Venous Blood Culture - Final NO GROWTH AFTER 5 DAYS 01/06/17 08:30 Blood-Venous Gram Stain - Final TEST NOT PERFORMED 01/06/17 07:55 Blood-Venous S.aureus & Coag-Neg Staph PNA FISH - Preliminary 01/06/17 07:55 Blood-Venous Blood Culture - Final Staphylococcus Aureus 01/06/17 07:55 Blood-Venous Gram Stain - Final 01/02/17 00:15 Blood Blood Culture - Final Staphylococcus Aureus 01/02/17 00:15 Blood Gram Stain - Final 01/02/17 23:45 Blood S.aureus & Coag-Neg Staph PNA FISH - Final 01/02/17 23:45 Blood Blood Culture - Final Staphylococcus Aureus 01/02/17 23:45 Blood Gram Stain - Final 01/03/17 16:10 Throat Group A Strep Throat Culture - Final NO BETA STREP GROUP A ISOLATED. Most Recent Lab Values WBC 6.2 K/uL (4.8-10.8) 01/14/17 09:59 RBC 2.90 Mil/uL (3.80-5.20) L 01/14/17 09:59 Hgb 9.0 g/dL (11.0-16.0) L 01/14/17 09:59 Hct 27.0 % (34.0-47.0) L 01/14/17 09:59 MCV 92.9 fL (81.0-99.0) 01/14/17 09:59 MCH 30.8 pg (27.0-31.0) 01/14/17 09:59 MCHC 33.2 g/dL (33.0-37.0) 01/14/17 09:59 RDW 15.1 % (11.5-14.5) H 01/14/17 09:59 Plt Count 234 K/uL (130-400) 01/14/17 09:59 MPV 9.7 fL (7.2-11.7) 01/14/17 09:59 Neut % (Auto) 54.3 % (50.0-75.0) 01/14/17 09:59 Lymph % (Auto) 31.0 % (20.0-40.0) 01/14/17 09:59 [place] % (Auto) 7.9 % (0.0-10.0) 01/14/17 09:59 Eos % (Auto) 5.7 % (0.0-4.0) H 01/14/17 09:59 Baso % (Auto) 1.1 % (0.0-2.0) 01/14/17 09:59 Neut # 3.4 K/uL (1.8-7.0) 01/14/17 09:59 Lymph # 1.9 K/uL (1.0-4.3) 01/14/17 09:59 [place] # 0.5 K/uL (0.0-0.8) 01/14/17 09:59 Eos # 0.4 K/uL (0.0-0.7) 01/14/17 09:59 Baso # 0.1 K/uL (0.0-0.2) 01/14/17 09:59 Neutrophils % (Manual) 84 % (50-75) H 01/03/17 06:06 Band Neutrophils % 10 % (0-2) H 01/03/17 06:06 Lymphocytes % (Manual) 4 % (20-40) L 01/03/17 06:06 Monocytes % (Manual) 2 % (0-10) 01/03/17 06:06 Eosinophils % (Manual) 3 % (0-4) 01/02/17 20:36 Platelet Estimate Decreased (NORMAL) L 01/03/17 06:06 Hypochromasia (manual) Slight 01/03/17 06:06 APTT 30 SECONDS (21-34) 01/03/17 05:14 Hep-[place] Thrombocytopen Negative (Negative) 01/04/17 13:50 Sodium 137 mmol/L (132-148) 01/14/17 09:59 Potassium 6.0 mmol/L (3.6-5.2) H 01/14/17 09:59 Chloride 94 mmol/L (98-107) L 01/14/17 09:59 Carbon Dioxide 22 mmol/L (22-30) 01/14/17 09:59 Anion Gap 27 (10-20) H 01/14/17 09:59 BUN 55 mg/dL (7-17) H 01/14/17 09:59 Creatinine 8.2 MG/DL (0.7-1.2) H* 01/14/17 09:59 Est GFR ( Amer) 7 01/14/17 09:59 Est GFR (Non-Af Amer) 5 01/14/17 09:59 POC Glucose (mg/dL) 171 mg/dL (65-110) H 01/14/17 11:30 Random Glucose 130 mg/dL (65-105) H 01/14/17 09:59 Hemoglobin A1c 7.2 % (4.2-6.5) H 01/08/17 17:24 Lactic Acid 1.1 mmol/L (0.7-2.1) 01/03/17 11:51 Calcium 7.5 mg/dl (8.6-10.4) L 01/14/17 09:59 Phosphorus 6.1 mg/dL (2.5-4.5) H 01/14/17 09:59 Magnesium 2.5 mg/dL (1.6-2.3) H 01/14/17 09:59 % Saturation 62 (20-55) H 01/07/17 16:08 Ferritin 901.0 ng/mL 01/10/17 19:39 Total Bilirubin 0.9 mg/dL (0.2-1.3) 01/14/17 09:59 AST 26 U/L (14-36) 01/14/17 09:59 ALT 54 U/L (9-52) H 01/14/17 09:59 Alkaline Phosphatase 158 U/L (38-126) H 01/14/17 09:59 Total Creatine Kinase 42 U/L (30-135) 01/11/17 10:21 CK-MB (Mass) 0.96 ng/mL (0.0-3.38) 01/11/17 10:21 Troponin I, Quant < 0.0120 ng/mL (0.00-0.120) 01/11/17 10:21 Total Protein 7.5 g/dL (6.3-8.3) 01/14/17 09:59 Albumin 4.1 g/dL (3.5-5.0) 01/14/17 09:59 Globulin 3.4 gm/dL (2.2-3.9) 01/14/17 09:59 Albumin/Globulin Ratio 1.2 (1.0-2.1) 01/14/17 09:59 Vitamin B12 387 pg/mL (239-931) 01/10/17 19:39 Folate 9.1 ng/mL 01/10/17 19:39 Procalcitonin 61.03 NG/ML (0.19-0.49) H 01/06/17 08:15 Beta HCG, Quant < 2.39 mIU/ML 01/08/17 17:24 Heparin-induced Plt Ab Negative (Negative) 01/04/17 13:50 [facility] Low Dose 0.1 2 % Release 01/04/17 13:50 [facility] Low Dose 0.5 2 % Release 01/04/17 13:50 [facility] High Dose 100 1 % Release 01/04/17 13:50 Influenza Typ A,B (EIA) Negative for flu a/b (NEGATIVE) 01/03/17 15:51 Grp A Beta Strep Ag Negative (NEGATIVE) 01/03/17 15:51 - Hospital Course Hospital Course: Upon Admission: 41 year female with PMH of DM type 1, HTN, ESRD on HD (MWF) presents to the ED with muscle spasms, chest pain and palpitations. The chest pain is located at to the right of the sternum and is non radiating. Nothing makes the pain better , nothing makes it worse. The patient reported some SOB earlier but it has since resolved. She is still experiencing some pain in her chest but it is currently a dull pain. She says she feels like her heart is racing and can feel it want to beat out of her chest. She states she is also having back spasms in between her shoulder blades and across her low back. Patient states that all of this started earlier today when she finished her dialysis treatment. She states since being in the ED, her pain and breathing have improved, but she has been experiencing a fever and got lightheaded when she attempted to stand up. The muscle spasms that the patient was reporting on arrival were located in her arms and legs but have since resolved. Denies chills, n/v, d/c, abdominal pain, vision changes or [place]. PMH: DM, HTN, ESRD on HD (MWF) PSH; RLE AVF, RLE clot thrombolysis, cataract surgery Social: Denies ETOH, tobacco, or illicit drug use PMD: Denies currently having one d/t insurance Nephro: [facility]: [facility] (on [place]) Throughout Hospital Course: Patient was admitted for Pneumonia and chest pain R/O ACS. ACS was ruled out with EKGs, JOLANTA x 3 negative. Echo (01/04/17) - EF: 70%, LV function WNL, concentric LV hypertrophy, mild TR, borderline pulmonary HTN, No vegetations. Patient was started on IV abx, where she developed bacteremia. CXR - Prominent ill-defined bibasilar airspace opacities. CTA - No definite CT evidence of PE. Mosaic pattern of lung parenchyma, nonspecific. DDX: Air-trapping, interstitial edema, interstitial pneumonia, interstitial lung disease. Clinical correlation is needed. Probable bibasilar atelectasis. Superimposed pneumonia is not excluded. Heterogeneous thyroid. She was initially started on Gentamycin but started to develop ototoxicity, so placed on Clindamycin 600 mg q8h. As per ID recommended Ancef 1g prior to MW dialysis and 2g prior to F dialysis once discharged. She developed thrombocytopenia which was most likely secondary to her septic state, negative HIT workup. She developed transaminitis, most likely 2/2 to abx. Patient is to follow up with Dr. Trimble as outpatient for audiogram. This is a brief summary of the patient's hospital course, please review EMR for full record. Discharge Exam - Head Exam Head Exam: NORMAL INSPECTION - Eye Exam Eye Exam: EOMI, Normal appearance, PERRL Pupil Exam: NORMAL ACCOMODATION - ENT Exam ENT Exam: Mucous Membranes Dry - Respiratory Exam Respiratory Exam: Decreased Breath Sounds - Cardiovascular Exam Cardiovascular Exam: REGULAR RHYTHM - GI/Abdominal Exam GI & Abdominal Exam: Normal Bowel Sounds, Soft. absent: Distended - Extremities Exam Extremities exam: normal inspection, pedal pulses present - Neurological Exam Neurological exam: Alert, Oriented x3 - Psychiatric Exam Psychiatric exam: Normal Affect, Normal Mood - Skin Skin Exam: Dry, Intact, Normal Color, Warm Discharge Plan - Discharge Medications Prescriptions: ceFAZolin 1 gm in NS [Ancef 1GM in NS] 1 gm IV Q7D 4 Days bag ceFAZolin 1 gm in NS [Ancef 1GM in NS] 1 gm IVPB Q7D 4 Days bag ceFAZolin IV 2 gm in Dextrose [Ancef IV 2 gm DUPLEX] 2 gm IV Q7D #4 bag - Follow Up Plan Condition: GOOD Disposition: HOME/ ROUTINE Instructions: Heart Failure (DC), Dialysis Diet (DC), Sepsis (DC), Sepsis (GEN) , Pneumonia (DC), End Stage Kidney Disease (DC) Additional Instructions: Patient is to continue current medications as listed. As per Dr. Tesfaye, ID specialist she will receive ANCEF 1 gram IV prior to MW dialysis and Ancef 2grams IV prior to F dialysis for the next 4 weeks. TOTAL 12 DOSES She is to follow up with Dr. Trimble, a ears, nose, and throat Doctor, as outpatient for an audiogram to evaluate her ear symptoms. Please make an appointment with Dr. Trimble to have this done for you. Please return to the ED if your symptoms worsen or return. El paciente debe continuar con los medicamentos actuales segn lo indicado. Segn la Dra. Tesfaye, especialista en ID, recibir ANCEF 1 gramo IV antes de la dilisis MW y Ancef 2grams IV antes de la dilisis F kristy las prximas 4 semanas. TOTAL 12 DOSIS Gemma debe seguir con el Dr. Trimble, un doctor de las orejas, de la nariz, y de la garganta, gloria paciente ambulatorio para un audiograma para evaluar nessa s ntomas del odo. Por favor, belkis chucho devi con el Dr. Trimble para hacer esto por usted. Por favor regrese a la DE si nessa sntomas empeoran o regresan. Referrals: Wyatt Trimble MD [Staff Provider] -
[2017-01-14 13:28] VITALS: RESP 18
[2017-01-14 13:31] VITALS: PULSE 84
--- NOTE | 2017-01-14 15:42 | CP.PCM.PN ---
Subjective - Date & Time of Evaluation Date of Evaluation: 01/14/17 Time of Evaluation: 03:00 - Subjective Subjective: dictated Objective - Vital Signs/Intake and Output Vital Signs (last 24 hours): Temp Pulse Resp BP Pulse Ox 98 F 84 18 117/54 L 98 01/14/17 09:30 01/14/17 13:30 01/14/17 13:30 01/14/17 13:30 01/14/17 13:30 Intake and Output: 01/14/17 01/14/17 06:59 18:59 Intake Total 210 500 Balance 210 500 - Medications Medications: Current Medications Artificial Tears (Artificial Tears) 0 ml OD Q3H PRN PRN Reason: Dry eyes Last Admin: 01/13/17 12:48 Dose: 1 drop Cinacalcet (Sensipar) 90 mg PO DAILY [facility] Last Admin: 01/14/17 13:44 Dose: 90 mg Clonidine HCl (Catapres) 0.2 mg PO BID [facility] Last Admin: 01/14/17 10:43 Dose: Not Given Epoetin Dewey (Procrit) 10,000 unit IV MWF [facility] Last Admin: 01/14/17 11:04 Dose: 10,000 unit Famotidine (Pepcid) 20 mg PO DAILY [facility] Last Admin: 01/14/17 10:44 Dose: Not Given Clindamycin Phosphate 600 mg/ (Sodium Chloride) 54 mls @ 100 mls/hr IVPB Q8H [facility] Last Admin: 01/14/17 13:45 Dose: 100 mls/hr Insulin Aspart (Novolog) 4 unit SC ACTID [facility] Last Admin: 01/14/17 11:21 Dose: Not Given Insulin Glargine (Lantus) 6 unit SC HS [facility] Last Admin: 01/13/17 22:11 Dose: 6 units Labetalol HCl (Normodyne) 300 mg PO BID [facility] Last Admin: 01/14/17 10:43 Dose: Not Given Minoxidil (Loniten) 10 mg PO BID [facility] Last Admin: 01/14/17 10:43 Dose: Not Given Morphine Sulfate (Morphine) 1 mg IVP Q4 PRN PRN Reason: Pain, severe (8-10) Last Admin: 01/11/17 23:06 Dose: 1 mg Ondansetron HCl (Zofran Inj) 4 mg IVP Q8 PRN PRN Reason: Nausea/Vomiting Last Admin: 01/11/17 18:05 Dose: 4 mg Pregabalin (Lyrica) 50 mg PO DAILY [facility] Last Admin: 01/14/17 13:44 Dose: 50 mg Saccharomyces Boulardii (Florastor) 250 mg PO BID [facility] Last Admin: 01/14/17 10:43 Dose: Not Given Sevelamer Carbonate (Renvela) 2,400 mg PO TID [facility] Last Admin: 01/14/17 13:41 Dose: 2,400 mg - Labs Labs: 01/14/17 09:59 01/14/17 13:49 APTT 30 SECONDS (21-34) 01/03/17 05:14
[2017-01-14 15:51] VITALS: BP 154/59; TEMP 98.3; O2SAT 95
--- NOTE | 2017-01-14 20:31 | PN ---
INFECTIOUS DISEASE FOLLOWUP SUBJECTIVE: The patient is afebrile. She still complains of decreased hearing. Denies any other problems at this time. She did come in with pneumonia and she did receive antibiotics, vancomycin and gentamicin, at certain point which were discontinued, and we are hoping that she needs to seen an ENT. The health information internship told me that they had made an appointment for her as outpatient for Dr. Trimble. She did say that she had dialysis today as I see her potassium was 6 this morning. She is a chronic renal dialysis patient. Now, she denies any cough, cold, or any chest pain. No swelling of the ears. No popping sound in the ear. PHYSICAL EXAMINATION: VITAL SIGNS: T-max today is 98, pulse 76, blood pressure 146/67, respirations are 18. HEENT: Head is atraumatic, normocephalic. NECK: Supple. LUNGS: Clear. HEART: S1 and S2 is regular. ABDOMEN: Soft and nontender. No guarding. No rigidity present. EXTREMITIES: Have no edema, clubbing or cyanosis. LABORATORY DATA: Labs are noted. Lab show white count is 6.2, hemoglobin 9, hematocrit 27. Her right arm shunt has some swelling but no redness noted, and she says it is functioning well. She did get a stent placement before she came. White count is 6.0, creatinine is 8.2, anion gap is 27 is high. BUN is 55. Liver enzymes were also elevated and now they are coming down. PLAN: Plan is to send her with Ancef 2 g after and before each dialysis on Mondays and Wednesdays, and on Saturday to get 3 g. Prior to this, she will need 12 doses of this that means she will be receiving it for 31 days and that should be okay. I told her that WBC scan did light up on the right arm graft and maybe it is infected and that is why she has Staphylococcus aureus in the blood, but she says it is functioning well and was seen by the renal attending. Twyla Tesfaye MD
== END 2017-01-14 19:30 | disposition home or self-care (01) | DRG 871 ==
LOC: C.ER 18:39 → C.9E 01-03 03:07 → C.5S 01-03 06:45 → C.6T 01-11 16:27
PROVIDERS: ADMIT Family Medicine; ATTEND Family Medicine
PROC: 5A1D60Z (ICD-10-PCS; principal; 2017-01-04)
DX: A41.01 Sepsis due to Methicillin susceptible Staphylococcus aureus (principal); J18.9 Pneumonia, unspecified organism; I13.2 Hypertensive heart and chronic kidney disease with heart failure and with stage 5 chronic kidney disease, or end stage renal disease; E10.22 Type 1 diabetes mellitus with diabetic chronic kidney disease; D69.6 Thrombocytopenia, unspecified; N18.6 End stage renal disease; J98.11 Atelectasis; E10.65 Type 1 diabetes mellitus with hyperglycemia; I27.2 Other secondary pulmonary hypertension; I50.9 Heart failure, unspecified; E87.5 Hyperkalemia; D63.1 Anemia in chronic kidney disease; F32.9 Major depressive disorder, single episode, unspecified; G89.29 Other chronic pain; H16.209 Unspecified keratoconjunctivitis, unspecified eye; H91.93 Unspecified hearing loss, bilateral; H93.19 Tinnitus, unspecified ear; J34.2 Deviated nasal septum; K59.00 Constipation, unspecified; L29.9 Pruritus, unspecified; Z87.01 Personal history of pneumonia (recurrent); Z87.11 Personal history of peptic ulcer disease; Z87.891 Personal history of nicotine dependence; Z99.2 Dependence on renal dialysis

== ENCOUNTER 2017-04-09 16:44 | Observation (INO) | payer OTHER ==
[2017-04-09 16:45] VITALS: BMI 22.2
[2017-04-09 17:57] LABS: BASO # 0.1 K/uL (0.0-0.2); LYMPH # 1.6 K/uL (1.0-4.3); MEAN CORPUSCULAR HEMOGLOBIN 30.6 pg (27.0-31.0); MONO # 0.7 K/uL (0.0-0.8); RED CELL DISTRIBUTION WIDTH 14.3 % (11.5-14.5)
[2017-04-09 17:58] LABS: BASO % 1.5 % (0.0-2.0); EOS # 0.2 K/uL (0.0-0.7); EOS % 2.3 % (0.0-4.0); LYMPH % 23.9 % (20.0-40.0); MEAN CORPUSCULAR HGB CONC 33.7 g/dL (33.0-37.0); MEAN PLATELET VOLUME 11.5 fL (7.2-11.7); MONO % 10.4 % (0.0-10.0); NRBC % 0.1 % (0.0-2.0); WHITE BLOOD COUNT 6.6 K/uL (4.8-10.8)
[2017-04-09 17:59] LABS: MEAN CELL VOLUME 90.8 fL (81.0-99.0)
[2017-04-09 18:08] LABS: ALB/GLOB RATIO 1.4 (1.0-2.1); BILIRUBIN,TOTAL 0.6 mg/dL (0.2-1.3); CALCIUM 9.6 mg/dl (8.6-10.4); POTASSIUM 5.2 mmol/L (3.6-5.2); TOTAL PROTEIN 7.7 g/dL (6.3-8.3)
--- NOTE | 2017-04-09 18:16 | C.PDOC ---
History Of Present Illness 41 y/o female, with PMHx of ESRD on HD (last dialysis yesterday), presents to ED for evaluation of progressive worsening of shortness of breath since yesterday. Denies cough, sputum, chest pain, palpitations, or fever. Time Seen by Provider: 04/09/17 17:23 Chief Complaint (Nursing): Shortness Of Breath History Per: Patient History/Exam Limitations: no limitations Onset/Duration Of Symptoms: Days Current Symptoms Are (Timing): Still Present Current Respiratory Medications: See Home Med List Severity: None Pain Scale Rating Of: 0 Associated Symptoms: denies: Fever, Chills, Sweating, Chest Pain, Bloody Cough, Productive Cough, Heart Racing, Leg/Calf Pain, Ankle/Leg Swelling, Dizziness, Light-headedness, Anxiety, Tingling In Hands Or Face, Musle Spasms In Hands Or Feet Recent travel outside of the [place]: No Additional History Per: Patient Past Medical History Reviewed: Historical Data, Nursing Documentation, Vital Signs Vital Signs: Last Vital Signs Temp 97.9 F 04/09/17 16:52 Pulse 89 04/09/17 16:52 Resp 22 04/09/17 16:52 BP 183/74 H 04/09/17 16:52 Pulse Ox 97 04/09/17 18:37 - Medical History PMH: Anemia, Anxiety, Depression, Diabetes, Fractures (RT ANKLE), HTN, Pneumonia , End Stage Renal Disease (M-W-F), Chronic Kidney Disease, Seizures (2008) Denies: Kidney Stones - [facility] Procedures DILATION OF R BASILIC VEIN WITH INTRALUM DEV, PERC APPROACH (07/13/16) EXTIRPATION OF MATTER FROM RIGHT BASILIC VEIN, PERC APPROACH (07/13/16) FLUOROSCOPY OF INF VENA CAVA USING L OSM CONTRAST, GUIDANCE (05/29/16) INDIVIDUAL PSYCHOTHERAPY, COGNITIVE-BEHAVIORAL (10/23/16) INDIVIDUAL PSYCHOTHERAPY, SUPPORTIVE (10/23/16) INSERTION OF INFUSION DEV INTO INF VENA CAVA, PERC APPROACH (05/29/16) INSERTION OF INFUSION DEV INTO SUP VENA CAVA, PERC APPROACH (07/13/16) INTRODUCE OTH THROMBOLYTIC IN PERIPH VEIN, PERC (07/13/16) PERFORMANCE OF URINARY FILTRATION, MULTIPLE (01/03/17) REMOVAL OF OTHER DEVICE ON RIGHT INGUINAL REGION (05/29/16) ULTRASONOGRAPHY OF INFERIOR VENA CAVA, GUIDANCE (07/13/16) Family History: States: Unknown Family Hx - Social History Hx Tobacco Use: Yes Hx Alcohol Use: No Hx Substance Use: No - Immunization History Hx Tetanus Toxoid Vaccination: No Hx Influenza Vaccination: No Hx Pneumococcal Vaccination: No Review Of Systems Constitutional: Negative for: Fever, Chills Cardiovascular: Negative for: Chest Pain, Palpitations, Edema, Light Headedness Respiratory: Positive for: Shortness of Breath. Negative for: Cough, Hemoptysis , Sputum Gastrointestinal: Negative for: Nausea, Vomiting Physical Exam - Physical Exam Appears: Non-toxic, No Acute Distress Skin: Normal Color, Warm, Dry Head: Atraumatic, Normacephalic Eye(s): bilateral: Normal Inspection Oral Mucosa: Moist Chest: Symmetrical Cardiovascular: Rhythm Regular, No Murmur Respiratory: No Rales, No Rhonchi, No Wheezing, Other (diminished breath sounds at the bases) Gastrointestinal/Abdominal: Soft, No Tenderness Extremity: Normal ROM, No Pedal Edema, Other ((+)thrill left AV fistula) Neurological/Psych: Oriented x3, Normal Speech ED Course And Treatment - Laboratory Results Result Diagrams: 04/09/17 17:40 04/09/17 17:40 ECG: Interpreted By Me, Viewed By Me ECG Rhythm: Sinus Rhythm ECG Interpretation: No Acute Changes Interpretation Of ECG: Normal axis, normal intervals. No ST or T wave changes. Rate From EC (bpm) O2 Sat by Pulse Oximetry: 97 (RA) Pulse Ox Interpretation: Normal Medical Decision Making Medical Decision Making: Blood work, UA, EKG, CXR ordered and reviewed. Assessment: fluid overload Spoke with hospitalist, Dr. Campos, agrees upon admission for fluid overload and shortness of breath. Consult placed for Dr. Velazquez. Disposition Discussed With : Debbi Campos Doctor Will See Patient In The: Hospital Counseled Patient/Family Regarding: Studies Performed, Diagnosis - Disposition Disposition: HOSPITALIZED Disposition Time: 18:30 Condition: FAIR - Scribe Statement The provider has reviewed the documentation as recorded by the Yoandyibsiena Fofana All medical record entries made by the Scribe were at my direction and personally dictated by me. I have reviewed the chart and agree that the record accurately reflects my personal performance of the history, physical exam, medical decision making, and the department course for this patient. I have also personally directed, reviewed, and agree with the discharge instructions and disposition.
[2017-04-09 18:18] LABS: TROPONIN I 0.017 ng/mL (0.00-0.120)
--- NOTE | 2017-04-09 18:19 | RAD ---
HISTORY: chest pain COMPARISON: Chest x-ray performed 01/03/17 TECHNIQUE: Chest, one view. FINDINGS: LUNGS: Mild interstitial prominence may reflect infection or edema. No focal consolidation. Please note that chest x-ray has limited sensitivity for the detection of pulmonary masses. PLEURA: No significant pleural effusion identified. No definite pneumothorax . CARDIOVASCULAR: Cardiomegaly. Right paratracheal opacity may reflect tortuous vasculature a slightly exaggerated by patient obliquity; alternatives including adenopathy cannot be excluded. OSSEOUS STRUCTURES: Degenerative changes. VISUALIZED UPPER ABDOMEN: Unremarkable. OTHER FINDINGS: Vascular stent projects over the right axillary region. IMPRESSION: Mild interstitial prominence may reflect infection or edema. Cardiomegaly. Right paratracheal opacity favored to reflect tortuous vasculature exaggerated by patient obliquity; alternatives including adenopathy cannot be excluded. Correlate clinically and recommend further evaluation with CT chest with IV contrast if indicated. Vascular stent projects over the right axillary region.
--- NOTE | 2017-04-09 20:05 | CP.PCM.HP ---
<Leland Wan - Last Filed: 04/09/17 20:59> History of Present Illness - History of Present Illness History of Present Illness: Medicine H/P CC: SOB HPI: Patient is a 41F with a PMH of DM1, HTN, ESRD on dialysis, Hx of CVA comes to the ED after feeling SOB. She went to dialysis on Saturday where over 2L were removed. She states that her dry weight is usually 52kg but she was still 58kg after dialysis. She has been progressively SOB with difficulty walking. She woke up last night in a coughing fit struggling to catch her breath. She feels fluid in her abdomen as well and is complaining of abdominal distension. No other complaints at this time. Was told to come to ED by dialysis center. Access at R. arm AV shunt. Patient does not make urine PMH: DM1, HTN, ESRD on dialysis MWF [place] with Dr. Velazquez, Hx of CVA, depression PSH: B/l cataracts, R. retina surgery, AV shunt in R. arm, Embolectomy from R. LE, AV fistula L UE collapsed. FH: Mother - DM/ESRD; Dad - Heart problems, prostate cancer SH: denies alcohol, smoking, drugs. Lives with father, step mother in siblings. 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 Meds: See MAR All: None Present on Admission - Present on Admission Any Indicators Present on Admission: Yes History of DVT/PE: Yes Review of Systems - Review of Systems Review of Systems: Per HPI Past Patient History - Infectious Disease Hx of Infectious Diseases: None - Past Medical History & Family History Past Medical History?: Yes - Past Social History Smoking Status: Never Smoked - CARDIAC Hx Hypertension: Yes - PULMONARY Hx Pneumonia: Yes - NEUROLOGICAL Hx Seizures: Yes (2008) - HEENT Hx HEENT Problems: Yes Hx Cataracts: Yes (HAD CUATE CATARACT SURGERY) - RENAL Hx Chronic Kidney Disease: Yes Hx Kidney Stones: No - ENDOCRINE/METABOLIC Hx Endocrine Disorders: Yes Hx Diabetes Mellitus Type 1: Yes - HEMATOLOGICAL/ONCOLOGICAL Hx Anemia: Yes - INTEGUMENTARY Hx Dermatological Problems: No - MUSCULOSKELETAL/RHEUMATOLOGICAL Hx Fractures: Yes (RT ANKLE) - GASTROINTESTINAL Hx Gastrointestinal Disorders: Yes Hx Ulcer: Yes - GENITOURINARY/GYNECOLOGICAL Hx Genitourinary Disorders: No - PSYCHIATRIC Hx Anxiety: Yes Hx Depression: Yes Hx Substance Use: No - SURGICAL HISTORY Hx Surgeries: Yes Hx Arteriovenous Shunt: Yes (NON FUNC MITZI, NEW SIDNEY) Hx Cataract Extraction: Yes Hx Eye Surgery: Yes (RETINA RT) - ANESTHESIA Hx Anesthesia: Yes Hx Anesthesia Reactions: No Hx Malignant Hyperthermia: No Meds Allergies/Adverse Reactions: Allergies Allergy/AdvReac Type Severity Reaction Status Date / Time No Known Allergies Allergy Verified 04/09/17 16:56 Physical Exam - Constitutional Appears: Non-toxic - Head Exam Head Exam: ATRAUMATIC, NORMAL INSPECTION, NORMOCEPHALIC - Eye Exam Eye Exam: EOMI - ENT Exam ENT Exam: Mucous Membranes Moist - Respiratory Exam Respiratory Exam: Decreased Breath Sounds (b/l LL), NORMAL BREATHING PATTERN. absent: Rhonchi, Wheezes - Cardiovascular Exam Cardiovascular Exam: REGULAR RHYTHM - GI/Abdominal Exam GI & Abdominal Exam: Distended, Normal Bowel Sounds, Soft. absent: Bruit, Firm , Guarding, Tenderness - Extremities Exam Extremities exam: Negative for: joint swelling, tenderness - Neurological Exam Neurological exam: Alert, Oriented x3 - Psychiatric Exam Psychiatric exam: Normal Affect, Normal Mood - Skin Skin Exam: Dry, Intact, Normal Color, Warm Results - Vital Signs Recent Vital Signs: Last Vital Signs Temp 98.0 F 04/09/17 19:24 Pulse 79 04/09/17 19:24 Resp 18 04/09/17 19:24 BP 175/70 H 04/09/17 19:24 Pulse Ox 100 04/09/17 19:24 - Labs Result Diagrams: 04/09/17 17:40 04/09/17 17:40 Labs: Laboratory Results - last 24 hr 04/09/17 04/09/17 04/09/17 17:40 17:40 17:40 WBC 6.6 RBC 3.85 Hgb 11.8 D Hct 35.0 MCV 90.8 D MCH 30.6 MCHC 33.7 RDW 14.3 Plt Count 108 L D MPV 11.5 Neut % (Auto) 61.9 Lymph % (Auto) 23.9 [place] % (Auto) 10.4 H Eos % (Auto) 2.3 Baso % (Auto) 1.5 Neut # 4.1 Lymph # 1.6 [place] # 0.7 Eos # 0.2 Baso # 0.1 Differential Comment PT 10.8 INR 1.0 APTT 36 H Sodium 134 Potassium 5.2 Chloride 94 L Carbon Dioxide 24 Anion Gap 21 H BUN 51 H Creatinine 6.6 H Est GFR ( Amer) 8 Est GFR (Non-Af Amer) 7 Random Glucose 142 H Calcium 9.6 Total Bilirubin 0.6 AST 19 ALT 14 Alkaline Phosphatase 115 Troponin I 0.0170 NT-Pro-B Natriuret Pep 50177 H Total Protein 7.7 Albumin 4.6 Globulin 3.2 Albumin/Globulin Ratio 1.4 Assessment & Plan (1) ESRD (end stage renal disease) on dialysis Assessment and Plan: Dialysis MWF @ [facility] Nephro (Marcus) SOB and congested on CXR - Spoke with Nephro - Going to dialysis tonight Meds: * Sensipar 90 PO QD * Procrit 50108 IV MWF * Status: Chronic Priority: High (2) Diabetes type I Assessment and Plan: Novolog 4 units SC ACTID Status: Chronic Priority: High (3) HTN (hypertension) Assessment and Plan: Catapres 0.2 PO BID Labetalol 300 PO BID Minoxidil 10 PO BID Status: Chronic Priority: Medium (4) Prophylactic measure Assessment and Plan: SCD Status: Acute Priority: Medium <Arturo Piedra - Last Filed: 04/10/17 06:25> Results - Vital Signs Recent Vital Signs: Last Vital Signs Temp 98.4 F 04/10/17 00:54 Pulse 85 04/10/17 04:18 Resp 18 04/10/17 01:10 BP 164/69 H 04/10/17 01:10 Pulse Ox 99 04/10/17 00:54 - Labs Result Diagrams: 04/09/17 17:40 04/09/17 17:40 Labs: Laboratory Results - last 24 hr 04/09/17 04/09/17 04/09/17 17:40 17:40 17:40 WBC 6.6 RBC 3.85 Hgb 11.8 D Hct 35.0 MCV 90.8 D MCH 30.6 MCHC 33.7 RDW 14.3 Plt Count 108 L D MPV 11.5 Neut % (Auto) 61.9 Lymph % (Auto) 23.9 [place] % (Auto) 10.4 H Eos % (Auto) 2.3 Baso % (Auto) 1.5 Neut # 4.1 Lymph # 1.6 [place] # 0.7 Eos # 0.2 Baso # 0.1 Differential Comment PT 10.8 INR 1.0 APTT 36 H Sodium 134 Potassium 5.2 Chloride 94 L Carbon Dioxide 24 Anion Gap 21 H BUN 51 H Creatinine 6.6 H Est GFR ( Amer) 8 Est GFR (Non-Af Amer) 7 POC Glucose (mg/dL) Random Glucose 142 H Calcium 9.6 Total Bilirubin 0.6 AST 19 ALT 14 Alkaline Phosphatase 115 Troponin I 0.0170 NT-Pro-B Natriuret Pep 08335 H Total Protein 7.7 Albumin 4.6 Globulin 3.2 Albumin/Globulin Ratio 1.4 04/09/17 04/10/17 21:25 01:02 WBC RBC Hgb Hct MCV MCH MCHC RDW Plt Count MPV Neut % (Auto) Lymph % (Auto) [place] % (Auto) Eos % (Auto) Baso % (Auto) Neut # Lymph # [place] # Eos # Baso # Differential Comment PT INR APTT Sodium Potassium Chloride Carbon Dioxide Anion Gap BUN Creatinine Est GFR ( Amer) Est GFR (Non-Af Amer) POC Glucose (mg/dL) 172 H 142 H Random Glucose Calcium Total Bilirubin AST ALT Alkaline Phosphatase Troponin I NT-Pro-B Natriuret Pep Total Protein Albumin Globulin Albumin/Globulin Ratio Assessment & Plan - Date & Time Date: 04/10/17 (I have seen and examined the patient. I agree with the findings and plan of care as documented by Dr. Wan. Patient with Shortness of breath. History of ESRD on dialysis. Likely fluid overloaded due to ESRD. Had dialysis on Saturday but unable to complete. Consult to nephro. Patient does not produce urine. Would benefit from more dialysis. Monitor for acute changes.) Time: 06:22 Attending/Attestation - Attestation I have personally seen and examined this patient.: Yes I have fully participated in the care of the patient.: Yes I have reviewed all pertinent clinical information: Yes
[2017-04-09] MEDS: Labetalol Hydrochloride 300 mg Tab PO SCH (20:09)
[2017-04-09] MEDS: (Lantus) Insulin Glargine, Recombinant SC SCH (22:54)
[2017-04-10 06:35] LABS: BASO # 0.1 K/uL (0.0-0.2); BASO % 0.8 % (0.0-2.0); EOS # 0.2 K/uL (0.0-0.7); EOS % 2.3 % (0.0-4.0); LYMPH # 1.4 K/uL (1.0-4.3); LYMPH % 17.4 % (20.0-40.0); MEAN CELL VOLUME 92.1 fL (81.0-99.0); MEAN CORPUSCULAR HEMOGLOBIN 31.2 pg (27.0-31.0); MEAN CORPUSCULAR HGB CONC 33.9 g/dL (33.0-37.0); MEAN PLATELET VOLUME 11.4 fL (7.2-11.7); MONO # 0.8 K/uL (0.0-0.8); MONO % 9.8 % (0.0-10.0); RED CELL DISTRIBUTION WIDTH 13.9 % (11.5-14.5); WHITE BLOOD COUNT 7.8 K/uL (4.8-10.8)
[2017-04-10 06:57] LABS: ALB/GLOB RATIO 1.3 (1.0-2.1); BILIRUBIN,TOTAL 0.6 mg/dL (0.2-1.3); CALCIUM 9.5 mg/dl (8.6-10.4); TOTAL PROTEIN 7.3 g/dL (6.3-8.3)
[2017-04-10] MEDS: (Novolog) Insulin Aspart, Recombinant 100 u/ml 10 ml vial SC SCH ×3 (08:23→16:30)
[2017-04-10] MEDS ORDERED: Epoetin Alfa 10,000 unit/ml Dialysis IV SCH (09:00)
[2017-04-10] MEDS ORDERED: Saccharomyces Boulardi 250 mg Cap PO SCH (10:00)
--- NOTE | 2017-04-10 10:54 | CP.PCM.CON ---
History of Present Illness - History of Present Illness History of Present Illness: Patient is a 41F with a PMH of DM1, HTN, ESRD on dialysis, Hx of CVA comes to the ED after feeling SOB. She went to dialysis on Saturday where over 2L were removed. She states that her dry weight is usually 52kg but she was still 58kg after dialysis. She has been progressively SOB with difficulty walking. She woke up last night in a coughing fit struggling to catch her breath. She feels fluid in her abdomen as well and is complaining of abdominal distension. No other complaints at this time. Was told to come to ED by dialysis center. Access at R. arm AV shunt. Pt was emergently dialyzed last night but still feels short of breath PMH: DM1, HTN, ESRD on dialysis [facility] Velazquez, Hx of CVA, depression PSH: B/l cataracts, R. retina surgery, AV shunt in R. arm, Embolectomy from R. LE, AV fistula L UE collapsed. FH: Mother - DM/ESRD; Dad - Heart problems, prostate cancer SH: denies alcohol, smoking, drugs. Lives with father, step mother in siblings. 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 All: None Past Patient History - Infectious Disease Hx of Infectious Diseases: None - Past Medical History & Family History Past Medical History?: Yes - Past Social History Smoking Status: Never Smoked - CARDIAC Hx Hypertension: Yes - PULMONARY Hx Pneumonia: Yes - NEUROLOGICAL Hx Seizures: Yes (2008) - HEENT Hx HEENT Problems: Yes Hx Cataracts: Yes (HAD CUATE CATARACT SURGERY) - RENAL Hx Chronic Kidney Disease: Yes Hx Kidney Stones: No - ENDOCRINE/METABOLIC Hx Endocrine Disorders: Yes Hx Diabetes Mellitus Type 1: Yes - HEMATOLOGICAL/ONCOLOGICAL Hx Anemia: Yes - INTEGUMENTARY Hx Dermatological Problems: No - MUSCULOSKELETAL/RHEUMATOLOGICAL Hx Fractures: Yes (RT ANKLE) - GASTROINTESTINAL Hx Gastrointestinal Disorders: Yes Hx Ulcer: Yes - GENITOURINARY/GYNECOLOGICAL Hx Genitourinary Disorders: No - PSYCHIATRIC Hx Anxiety: Yes Hx Depression: Yes Hx Substance Use: No - SURGICAL HISTORY Hx Surgeries: Yes Hx Arteriovenous Shunt: Yes (NON FUNC MITZI, NEW SIDNEY) Hx Cataract Extraction: Yes Hx Eye Surgery: Yes (RETINA RT) - ANESTHESIA Hx Anesthesia: Yes Hx Anesthesia Reactions: No Hx Malignant Hyperthermia: No Meds Allergies/Adverse Reactions: Allergies Allergy/AdvReac Type Severity Reaction Status Date / Time No Known Allergies Allergy Verified 04/09/17 16:56 - Medications Medications: Current Medications Amoxicillin/Clavulanate Potassium (Augmentin 875 Mg-125 Mg Tab) 1 tab PO Q12H [facility] Cinacalcet (Sensipar) 90 mg PO DAILY [facility] Clonidine HCl (Catapres) 0.2 mg PO BID [facility] Last Admin: 04/09/17 20:09 Dose: 0.2 mg Epoetin Dewey (Procrit) 10,000 unit IV MWF [facility] Insulin Aspart (Novolog) 4 unit SC ACTID [facility] Last Admin: 04/10/17 08:23 Dose: 4 unit Insulin Glargine (Lantus) 6 unit SC HS [facility] Last Admin: 04/09/17 22:54 Dose: Not Given Labetalol HCl (Normodyne) 300 mg PO BID [facility] Last Admin: 04/09/17 20:09 Dose: 300 mg Minoxidil (Loniten) 10 mg PO BID [facility] Physical Exam - Constitutional Appears: Non-toxic, No Acute Distress - Head Exam Head Exam: NORMAL INSPECTION, NORMOCEPHALIC - Eye Exam Eye Exam: Normal appearance Pupil Exam: PERRL - ENT Exam ENT Exam: Mucous Membranes Moist, Normal Exam - Neck Exam Neck exam: Positive for: Normal Inspection - Respiratory Exam Respiratory Exam: Clear to Auscultation Bilateral, NORMAL BREATHING PATTERN - Cardiovascular Exam Cardiovascular Exam: REGULAR RHYTHM, RRR - GI/Abdominal Exam GI & Abdominal Exam: Distended, Normal Bowel Sounds, Soft - Extremities Exam Additional comments: lue avf w/ thrill - Neurological Exam Neurological exam: Alert, Oriented x3 - Psychiatric Exam Psychiatric exam: Normal Affect, Normal Mood - Skin Skin Exam: Intact Results - Vital Signs Recent Vital Signs: Last Vital Signs Temp 98.4 F 04/10/17 07:25 Pulse 82 04/10/17 07:25 Resp 20 04/10/17 07:25 BP 151/63 H 04/10/17 07:25 Pulse Ox 97 04/10/17 07:25 - Labs Result Diagrams: 04/10/17 06:26 04/10/17 06:26 Labs: Laboratory Results - last 24 hr 04/09/17 04/09/17 04/09/17 17:40 17:40 17:40 WBC 6.6 RBC 3.85 Hgb 11.8 D Hct 35.0 MCV 90.8 D MCH 30.6 MCHC 33.7 RDW 14.3 Plt Count 108 L D MPV 11.5 Neut % (Auto) 61.9 Lymph % (Auto) 23.9 [place] % (Auto) 10.4 H Eos % (Auto) 2.3 Baso % (Auto) 1.5 Neut # 4.1 Lymph # 1.6 [place] # 0.7 Eos # 0.2 Baso # 0.1 Differential Comment PT 10.8 INR 1.0 APTT 36 H Sodium 134 Potassium 5.2 Chloride 94 L Carbon Dioxide 24 Anion Gap 21 H BUN 51 H Creatinine 6.6 H Est GFR ( Amer) 8 Est GFR (Non-Af Amer) 7 POC Glucose (mg/dL) Random Glucose 142 H Calcium 9.6 Total Bilirubin 0.6 AST 19 ALT 14 Alkaline Phosphatase 115 Troponin I 0.0170 NT-Pro-B Natriuret Pep 57301 H Total Protein 7.7 Albumin 4.6 Globulin 3.2 Albumin/Globulin Ratio 1.4 04/09/17 04/10/17 04/10/17 21:25 01:02 06:23 WBC RBC Hgb Hct MCV MCH MCHC RDW Plt Count MPV Neut % (Auto) Lymph % (Auto) [place] % (Auto) Eos % (Auto) Baso % (Auto) Neut # Lymph # [place] # Eos # Baso # Differential Comment PT INR APTT Sodium Potassium Chloride Carbon Dioxide Anion Gap BUN Creatinine Est GFR ( Amer) Est GFR (Non-Af Amer) POC Glucose (mg/dL) 172 H 142 H 181 H Random Glucose Calcium Total Bilirubin AST ALT Alkaline Phosphatase Troponin I NT-Pro-B Natriuret Pep Total Protein Albumin Globulin Albumin/Globulin Ratio 04/10/17 04/10/17 06:26 06:26 WBC 7.8 RBC 3.80 Hgb 11.9 Hct 35.0 MCV 92.1 MCH 31.2 H MCHC 33.9 RDW 13.9 Plt Count 98 L MPV 11.4 Neut % (Auto) 69.7 Lymph % (Auto) 17.4 L [place] % (Auto) 9.8 Eos % (Auto) 2.3 Baso % (Auto) 0.8 Neut # 5.5 Lymph # 1.4 [place] # 0.8 Eos # 0.2 Baso # 0.1 Differential Comment PT INR APTT Sodium 131 L Potassium 5.0 Chloride 95 L Carbon Dioxide 24 Anion Gap 17 BUN 34 H Creatinine 5.6 H Est GFR ( Amer) 10 Est GFR (Non-Af Amer) 8 POC Glucose (mg/dL) Random Glucose 198 H Calcium 9.5 Total Bilirubin 0.6 AST 18 ALT 13 Alkaline Phosphatase 116 Troponin I NT-Pro-B Natriuret Pep Total Protein 7.3 Albumin 4.1 Globulin 3.2 Albumin/Globulin Ratio 1.3 Assessment & Plan (1) Hypertension Status: Acute (2) Fluid overload Status: Acute (3) Diabetes type I Status: Chronic Priority: High (4) Anemia Status: Acute (5) ESRD (end stage renal disease) on dialysis Status: Acute - Assessment and Plan (Free Text) Assessment: esrd fluid overload htn dm anemia plan: hd today for uf maintain hd schedule mwf hgb at goal
[2017-04-10] MEDS: Labetalol Hydrochloride 300 mg Tab PO SCH ×2 (11:00→21:34)
[2017-04-10] MEDS: Amoxicillin-Clav 500-125 mg Tab PO SCH (13:36)
--- NOTE | 2017-04-10 17:42 | CP.PCM.PN ---
<Enrique Church - Last Filed: 04/10/17 17:38> Subjective - Date & Time of Evaluation Date of Evaluation: 04/10/17 Time of Evaluation: 07:00 - Subjective Subjective: Medicine note for Dr. Garza Patient seen and examined at bedside. Patient reports improvement in shortness of breath. Patient states that she feels congested and has watery eyes. Patient also complaining of sinus pressure. Patient denies fever, chills, chest pain, dyspnea, abdominal pain. Objective - Vital Signs/Intake and Output Vital Signs (last 24 hours): Temp Pulse Resp BP Pulse Ox 98.2 F 83 20 102/58 L 100 04/10/17 15:45 04/10/17 15:45 04/10/17 15:45 04/10/17 16:45 04/10/17 15:45 - Medications Medications: Current Medications Amoxicillin/Clavulanate Potassium (Augmentin 500 Mg-125 Mg Tab) 1 tab PO DAILY [facility] Last Admin: 04/10/17 13:36 Dose: 1 tab Cinacalcet (Sensipar) 90 mg PO DAILY [facility] Last Admin: 04/10/17 10:50 Dose: 90 mg Clonidine HCl (Catapres) 0.2 mg PO BID [facility] Last Admin: 04/10/17 11:00 Dose: Not Given Epoetin Dewey (Procrit) 10,000 unit IV MWF [facility] Insulin Aspart (Novolog) 4 unit SC ACTID [facility] Last Admin: 04/10/17 12:26 Dose: Not Given Insulin Glargine (Lantus) 6 unit SC HS [facility] Last Admin: 04/09/17 22:54 Dose: Not Given Labetalol HCl (Normodyne) 300 mg PO BID [facility] Last Admin: 04/10/17 11:00 Dose: Not Given Minoxidil (Loniten) 10 mg PO BID [facility] Last Admin: 04/10/17 11:00 Dose: Not Given - Labs Labs: 04/10/17 06:26 04/10/17 06:26 PT 10.8 SECONDS (9.7-12.2) 04/09/17 17:40 INR 1.0 04/09/17 17:40 APTT 36 SECONDS (21-34) H 04/09/17 17:40 - Constitutional Appears: No Acute Distress - Head Exam Head Exam: ATRAUMATIC, NORMOCEPHALIC - Eye Exam Eye Exam: Conjunctival injection, EOMI, PERRL - ENT Exam ENT Exam: Mucous Membranes Moist Additional comments: sinus tenderness on the right side - Neck Exam Neck Exam: absent: Lymphadenopathy - Respiratory Exam Respiratory Exam: Clear to Ausculation Bilateral. absent: Rales, Rhonchi, Wheezes - Cardiovascular Exam Cardiovascular Exam: REGULAR RHYTHM, +S1, +S2 - GI/Abdominal Exam GI & Abdominal Exam: Soft, Normal Bowel Sounds. absent: Tenderness - Extremities Exam Extremities Exam: absent: Pedal Edema, Tenderness - Neurological Exam Neurological Exam: Alert, Awake, Oriented x3 - Psychiatric Exam Psychiatric exam: Normal Affect, Normal Mood - Skin Skin Exam: Dry, Intact, Normal Color, Warm Assessment and Plan - Assessment and Plan (Free Text) Plan: ESRD (end stage renal disease) on dialysis Dialysis MWF @ [facility] Nephro (Marcus) SOB and congested on CXR - Spoke with Nephro - Going to dialysis again late today. Likely D/c tomorrow Meds: * Sensipar 90 PO QD * Procrit 21097 IV MWF Diabetes type I Novolog 4 units SC ACTID HTN (hypertension) Catapres 0.2 PO BID Labetalol 300 PO BID Minoxidil 10 PO BID Acute sinusitis Confirmed with pharmacy for renal dosing of Augmentin Augmentin 500-125 mg PO once daily for 10 days total starting 04/10/17 Prophylactic measure SCD dialysis diet Case DW Dr. Kayla Church PGY-1 <Hermilo Garza - Last Filed: 04/12/17 18:29> Objective - Vital Signs/Intake and Output Vital Signs (last 24 hours): Temp Pulse Resp BP Pulse Ox 98.4 F 88 20 107/55 L 98 04/11/17 15:59 04/11/17 16:00 04/11/17 15:59 04/11/17 15:59 04/11/17 15:59 - Labs Labs: 04/11/17 06:12 04/11/17 06:12 PT 10.8 SECONDS (9.7-12.2) 04/09/17 17:40 INR 1.0 04/09/17 17:40 APTT 36 SECONDS (21-34) H 04/09/17 17:40 Attending/Attestation - Attestation I have personally seen and examined this patient.: Yes I have fully participated in the care of the patient.: Yes I have reviewed all pertinent clinical information, including history, physical exam and plan: Yes Notes (Text): Seen and examined .Discussed with resident. I agree with the documentation of the resident's assessment and the plan
[2017-04-10] MEDS: (Lantus) Insulin Glargine, Recombinant SC SCH (21:27)
--- NOTE | 2017-04-10 23:10 | CARD ---
APPROVED REPORT EKG Measurement Heart [id number] <Conclusion> Normal sinus rhythm Normal ECG
[2017-04-11] MEDS ORDERED: DiphenhydrAMINE 50 mg/ml Inj IVP STA (02:04)
[2017-04-11 06:44] LABS: ALB/GLOB RATIO 1.2 (1.0-2.1); BILIRUBIN,TOTAL 0.6 mg/dL (0.2-1.3); CALCIUM 8.8 mg/dl (8.6-10.4); PHOSPHOROUS 5.4 mg/dL (2.5-4.5); POTASSIUM 4.7 mmol/L (3.6-5.2); TOTAL PROTEIN 7.6 g/dL (6.3-8.3)
[2017-04-11 06:56] LABS: BASO # 0.1 K/uL (0.0-0.2); BASO % 1.1 % (0.0-2.0); EOS # 0.2 K/uL (0.0-0.7); EOS % 2.8 % (0.0-4.0); HEMATOCRIT 37.2 % (34.0-47.0); LYMPH # 1.7 K/uL (1.0-4.3); LYMPH % 29.2 % (20.0-40.0); MEAN CELL VOLUME 91.6 fL (81.0-99.0); MEAN CORPUSCULAR HEMOGLOBIN 31.4 pg (27.0-31.0); MEAN CORPUSCULAR HGB CONC 34.3 g/dL (33.0-37.0); MEAN PLATELET VOLUME 11.9 fL (7.2-11.7); MONO # 0.7 K/uL (0.0-0.8); MONO % 11.6 % (0.0-10.0); RED CELL DISTRIBUTION WIDTH 14.1 % (11.5-14.5); WHITE BLOOD COUNT 5.9 K/uL (4.8-10.8)
[2017-04-11] MEDS: (Novolog) Insulin Aspart, Recombinant 100 u/ml 10 ml vial SC SCH ×4 (08:28→18:24)
--- NOTE | 2017-04-11 09:38 | CP.PCM.PN ---
Subjective - Date & Time of Evaluation Date of Evaluation: 04/11/17 Time of Evaluation: 09:36 - Subjective Subjective: seen and examined s/p hd x 2 days improved breathing c/o cold, greenish sputum no fevers chills n v d rash cp Objective - Vital Signs/Intake and Output Vital Signs (last 24 hours): Temp Pulse Resp BP Pulse Ox 98.0 F 84 20 144/69 100 04/11/17 07:40 04/11/17 08:00 04/11/17 07:40 04/11/17 07:40 04/11/17 08:00 - Medications Medications: Current Medications Amoxicillin/Clavulanate Potassium (Augmentin 500 Mg-125 Mg Tab) 1 tab PO DAILY [facility] Last Admin: 04/10/17 13:36 Dose: 1 tab Cinacalcet (Sensipar) 90 mg PO DAILY [facility] Last Admin: 04/10/17 10:50 Dose: 90 mg Clonidine HCl (Catapres) 0.2 mg PO BID [facility] Last Admin: 04/10/17 18:00 Dose: Not Given Epoetin Dewey (Procrit) 10,000 unit IV [facility] Famotidine (Pepcid) 40 mg PO DAILY [facility] Insulin Aspart (Novolog) 4 unit SC ACTID [facility] Last Admin: 04/11/17 08:28 Dose: 4 unit Insulin Glargine (Lantus) 6 unit SC HS [facility] Last Admin: 04/10/17 21:27 Dose: 6 u Labetalol HCl (Normodyne) 300 mg PO BID [facility] Last Admin: 04/10/17 21:34 Dose: 300 mg Minoxidil (Loniten) 10 mg PO BID [facility] Last Admin: 04/10/17 21:57 Dose: 10 mg Pregabalin (Lyrica) 50 mg PO BID [facility] Last Admin: 04/11/17 02:28 Dose: 50 mg - Labs Labs: 04/11/17 06:12 04/11/17 06:12 PT 10.8 SECONDS (9.7-12.2) 04/09/17 17:40 INR 1.0 04/09/17 17:40 APTT 36 SECONDS (21-34) H 04/09/17 17:40 - Constitutional Appears: Non-toxic, No Acute Distress - Head Exam Head Exam: NORMAL INSPECTION - Eye Exam Eye Exam: Normal appearance Pupil Exam: NORMAL ACCOMODATION - ENT Exam ENT Exam: Mucous Membranes Moist, Normal Exam - Neck Exam Neck Exam: Normal Inspection - Respiratory Exam Respiratory Exam: Clear to Ausculation Bilateral, NORMAL BREATHING PATTERN - Cardiovascular Exam Cardiovascular Exam: REGULAR RHYTHM, RRR (rue avf w/ thrill) - GI/Abdominal Exam GI & Abdominal Exam: Soft, Normal Bowel Sounds - Extremities Exam Extremities Exam: Full ROM, Normal Inspection - Neurological Exam Neurological Exam: Alert, Awake, Oriented x3 - Psychiatric Exam Psychiatric exam: Normal Affect, Normal Mood - Skin Skin Exam: Dry Assessment and Plan (1) Hypertension Status: Acute (2) Fluid overload Status: Acute (3) Diabetes type I Status: Chronic (4) Anemia Status: Acute (5) ESRD (end stage renal disease) on dialysis Status: Acute - Assessment and Plan (Free Text) Assessment: hd today x 2 hours consider zithromax for bronchitis stable for dc from renal standpoint
[2017-04-11] MEDS: Labetalol Hydrochloride 300 mg Tab PO SCH ×2 (09:49→18:24)
--- NOTE | 2017-04-11 09:51 | CP.PCM.DIS ---
<Fred Celaya - Last Filed: 04/11/17 10:41> Provider - Provider Date of Admission: 04/09/17 18:31 Attending physician: Hermilo Garza MD Consults: Dr. Bell - Nepholesya Time Spent in preparation of Discharge (in minutes): 30 Hospital Course - Lab Results Lab Results: Most Recent Lab Values WBC 5.9 K/uL (4.8-10.8) 04/11/17 06:12 RBC 4.06 Mil/uL (3.80-5.20) 04/11/17 06:12 Hgb 12.8 g/dL (11.0-16.0) 04/11/17 06:12 Hct 37.2 % (34.0-47.0) 04/11/17 06:12 MCV 91.6 fL (81.0-99.0) 04/11/17 06:12 MCH 31.4 pg (27.0-31.0) H 04/11/17 06:12 MCHC 34.3 g/dL (33.0-37.0) 04/11/17 06:12 RDW 14.1 % (11.5-14.5) 04/11/17 06:12 Plt Count 97 K/uL (130-400) L 04/11/17 06:12 MPV 11.9 fL (7.2-11.7) H 04/11/17 06:12 Neut % (Auto) 55.3 % (50.0-75.0) 04/11/17 06:12 Lymph % (Auto) 29.2 % (20.0-40.0) 04/11/17 06:12 [place] % (Auto) 11.6 % (0.0-10.0) H 04/11/17 06:12 Eos % (Auto) 2.8 % (0.0-4.0) 04/11/17 06:12 Baso % (Auto) 1.1 % (0.0-2.0) 04/11/17 06:12 Neut # 3.3 K/uL (1.8-7.0) 04/11/17 06:12 Lymph # 1.7 K/uL (1.0-4.3) 04/11/17 06:12 [place] # 0.7 K/uL (0.0-0.8) 04/11/17 06:12 Eos # 0.2 K/uL (0.0-0.7) 04/11/17 06:12 Baso # 0.1 K/uL (0.0-0.2) 04/11/17 06:12 Differential Comment 04/09/17 17:40 PT 10.8 SECONDS (9.7-12.2) 04/09/17 17:40 INR 1.0 04/09/17 17:40 APTT 36 SECONDS (21-34) H 04/09/17 17:40 Sodium 130 mmol/L (132-148) L 04/11/17 06:12 Potassium 4.7 mmol/L (3.6-5.2) 04/11/17 06:12 Chloride 92 mmol/L (98-107) L 04/11/17 06:12 Carbon Dioxide 25 mmol/L (22-30) 04/11/17 06:12 Anion Gap 18 (10-20) 04/11/17 06:12 BUN 41 mg/dL (7-17) H 04/11/17 06:12 Creatinine 5.6 mg/dL (0.7-1.2) H 04/11/17 06:12 Est GFR ( Amer) 10 04/11/17 06:12 Est GFR (Non-Af Amer) 8 04/11/17 06:12 POC Glucose (mg/dL) 150 mg/dL (65-110) H 04/11/17 06:42 Random Glucose 183 mg/dL (65-105) H 04/11/17 06:12 Calcium 8.8 mg/dl (8.6-10.4) 04/11/17 06:12 Phosphorus 5.4 mg/dL (2.5-4.5) H 04/11/17 06:12 Magnesium 2.0 mg/dL (1.6-2.3) 04/11/17 06:12 Total Bilirubin 0.6 mg/dL (0.2-1.3) 04/11/17 06:12 AST 21 U/L (14-36) 04/11/17 06:12 ALT 14 U/L (9-52) 04/11/17 06:12 Alkaline Phosphatase 127 U/L (38-126) H 04/11/17 06:12 Troponin I 0.0170 ng/mL (0.00-0.120) 04/09/17 17:40 NT-Pro-B Natriuret Pep 14528 pg/mL (0-450) H 04/09/17 17:40 Total Protein 7.6 g/dL (6.3-8.3) 04/11/17 06:12 Albumin 4.2 g/dL (3.5-5.0) 04/11/17 06:12 Globulin 3.4 gm/dL (2.2-3.9) 04/11/17 06:12 Albumin/Globulin Ratio 1.2 (1.0-2.1) 04/11/17 06:12 - Hospital Course Hospital Course: As per admission documentation HPI: Patient is a 41F with a PMH of DM1, HTN, ESRD on dialysis, Hx of CVA comes to the ED after feeling SOB. She went to dialysis on Saturday where over 2L were removed. She states that her dry weight is usually 52kg but she was still 58kg after dialysis. She has been progressively SOB with difficulty walking. She woke up last night in a coughing fit struggling to catch her breath. She feels fluid in her abdomen as well and is complaining of abdominal distension. No other complaints at this time. Was told to come to ED by dialysis center. Access at R. arm AV shunt. Patient does not make urine Hospital Course Patient was admitted to the hospital for emergent dialysis. [facility] Attendant Dr. Velazquez was consulted, Dr. Bell covering. Patient received dialysis treatment on 04/09. It was decided to have a second treatment on 04/10. The patient began to complain of cough with green mucous discharge from her nose. She was started on Augmentin on 04/10. She was given two doses while in the hospital and given a script for 8 days on discharge to complete a 10 day course. Patient received a 2 hour session of dialysis on 04/11 prior to discharge. She is to resume her normal dialysis schedule starting on Saturday04/13/17. Discharge Instructions Please take the Augmentin 500/125 mg once a day for the next 8 days starting tomorrow. Please follow up with your next scheduled dialysis appointment at [facility] on Saturday04/13/17. Please follow up with your primary care doctor within 1 week of discharge. If there are any new or worsening symptoms, please return to the emergency room. This is just a brief summary of the patient's hospital course. For full detail, please refer to EMR. Discharge Exam - Head Exam Head Exam: NORMAL INSPECTION - Eye Exam Eye Exam: EOMI, Normal appearance - ENT Exam ENT Exam: Mucous Membranes Moist - Respiratory Exam Respiratory Exam: Clear to PA & Lateral, NORMAL BREATHING PATTERN, UNREMARKABLE. absent: Accessory Muscle Use, Rales, Rhonchi, Wheezes, Respiratory Distress - Cardiovascular Exam Cardiovascular Exam: REGULAR RHYTHM, +S1 - GI/Abdominal Exam GI & Abdominal Exam: Soft. absent: Distended, Firm, Guarding, Hernia, Rigid, Tenderness - Extremities Exam Extremities exam: pedal pulses present - Neurological Exam Neurological exam: Alert, Oriented x3 - Psychiatric Exam Psychiatric exam: Normal Affect, Normal Mood - Skin Skin Exam: Dry, Warm Discharge Plan - Discharge Medications Prescriptions: Amoxicillin/Clavulanate [Augmentin 500 MG-125 MG Tab] 1 tab PO DAILY #8 tab - Follow Up Plan Condition: FAIR Disposition: HOME/ ROUTINE Instructions: Amoxicillin/Clavulanate Potassium (By mouth), Heart Failure (DC) , Sinusitis (GEN), Dialysis Diet (DC), End Stage Kidney Disease (DC) Additional Instructions: Please take the Augmentin 500/125 mg once a day for the next 8 days starting tomorrow. Please follow up with your next scheduled dialysis appointment at [facility] on Saturday04/13/17. Please follow up with your primary care doctor within 1 week of discharge. If there are any new or worsening symptoms, please return to the emergency room. Referrals: Gerry Velazquez MD [Staff Provider] - <Hermilo Garza - Last Filed: 04/12/17 18:30> Provider - Provider Date of Admission: 04/09/17 18:31 Attending physician: Hermilo Garza MD Hospital Course - Lab Results Lab Results: Most Recent Lab Values WBC 5.9 K/uL (4.8-10.8) 04/11/17 06:12 RBC 4.06 Mil/uL (3.80-5.20) 04/11/17 06:12 Hgb 12.8 g/dL (11.0-16.0) 04/11/17 06:12 Hct 37.2 % (34.0-47.0) 04/11/17 06:12 MCV 91.6 fL (81.0-99.0) 04/11/17 06:12 MCH 31.4 pg (27.0-31.0) H 04/11/17 06:12 MCHC 34.3 g/dL (33.0-37.0) 04/11/17 06:12 RDW 14.1 % (11.5-14.5) 04/11/17 06:12 Plt Count 97 K/uL (130-400) L 04/11/17 06:12 MPV 11.9 fL (7.2-11.7) H 04/11/17 06:12 Neut % (Auto) 55.3 % (50.0-75.0) 04/11/17 06:12 Lymph % (Auto) 29.2 % (20.0-40.0) 04/11/17 06:12 [place] % (Auto) 11.6 % (0.0-10.0) H 04/11/17 06:12 Eos % (Auto) 2.8 % (0.0-4.0) 04/11/17 06:12 Baso % (Auto) 1.1 % (0.0-2.0) 04/11/17 06:12 Neut # 3.3 K/uL (1.8-7.0) 04/11/17 06:12 Lymph # 1.7 K/uL (1.0-4.3) 04/11/17 06:12 [place] # 0.7 K/uL (0.0-0.8) 04/11/17 06:12 Eos # 0.2 K/uL (0.0-0.7) 04/11/17 06:12 Baso # 0.1 K/uL (0.0-0.2) 04/11/17 06:12 Differential Comment 04/09/17 17:40 PT 10.8 SECONDS (9.7-12.2) 04/09/17 17:40 INR 1.0 04/09/17 17:40 APTT 36 SECONDS (21-34) H 04/09/17 17:40 Sodium 130 mmol/L (132-148) L 04/11/17 06:12 Potassium 4.7 mmol/L (3.6-5.2) 04/11/17 06:12 Chloride 92 mmol/L (98-107) L 04/11/17 06:12 Carbon Dioxide 25 mmol/L (22-30) 04/11/17 06:12 Anion Gap 18 (10-20) 04/11/17 06:12 BUN 41 mg/dL (7-17) H 04/11/17 06:12 Creatinine 5.6 mg/dL (0.7-1.2) H 04/11/17 06:12 Est GFR ( Amer) 10 04/11/17 06:12 Est GFR (Non-Af Amer) 8 04/11/17 06:12 POC Glucose (mg/dL) 109 mg/dL (65-110) 04/11/17 16:52 Random Glucose 183 mg/dL (65-105) H 04/11/17 06:12 Calcium 8.8 mg/dl (8.6-10.4) 04/11/17 06:12 Phosphorus 5.4 mg/dL (2.5-4.5) H 04/11/17 06:12 Magnesium 2.0 mg/dL (1.6-2.3) 04/11/17 06:12 Total Bilirubin 0.6 mg/dL (0.2-1.3) 04/11/17 06:12 AST 21 U/L (14-36) 04/11/17 06:12 ALT 14 U/L (9-52) 04/11/17 06:12 Alkaline Phosphatase 127 U/L (38-126) H 04/11/17 06:12 Troponin I 0.0170 ng/mL (0.00-0.120) 04/09/17 17:40 NT-Pro-B Natriuret Pep 70122 pg/mL (0-450) H 04/09/17 17:40 Total Protein 7.6 g/dL (6.3-8.3) 04/11/17 06:12 Albumin 4.2 g/dL (3.5-5.0) 04/11/17 06:12 Globulin 3.4 gm/dL (2.2-3.9) 04/11/17 06:12 Albumin/Globulin Ratio 1.2 (1.0-2.1) 04/11/17 06:12 Attending/Attestation - Attestation I have personally seen and examined this patient.: Yes I have fully participated in the care of the patient.: Yes I have reviewed all pertinent clinical information, including history, physical exam and plan: Yes Notes (Text): I agree with the documentation of the assessment and the plan
[2017-04-11] MEDS: Amoxicillin-Clav 500-125 mg Tab PO SCH (09:58)
[2017-04-11 14:17] VITALS: RESP 20
[2017-04-11 16:01] VITALS: BP 107/55; TEMP 98.4; O2SAT 98
[2017-04-11 17:03] VITALS: PULSE 88
[2017-04-12] MEDS ORDERED: Epoetin Alfa 10,000 unit/ml Dialysis IV SCH (09:00)
== END 2017-04-11 19:18 | disposition home or self-care (01) ==
LOC: C.ER 16:44 → C.9E 18:31 → C.6T 19:19
PROVIDERS: ADMIT Hospitalist; ATTEND Internal Medicine
DX: I12.0 Hypertensive chronic kidney disease with stage 5 chronic kidney disease or end stage renal disease (principal); N18.6 End stage renal disease; Z86.73 Personal history of transient ischemic attack (TIA), and cerebral infarction without residual deficits; Z87.01 Personal history of pneumonia (recurrent); Z87.891 Personal history of nicotine dependence; Z99.2 Dependence on renal dialysis
CPT/HCPCS: 36415; 71010; 80053; 82948; 83735; 83880; 84100; 84484; 85025; 85610; 85730; 93005; 99285; G0257; G0378; J1200

== ENCOUNTER 2017-05-01 17:17 | Inpatient (IN) | payer MEDICARE, SELFPAY ==
[2017-05-01 17:18] VITALS: BMI 22.2
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
[2017-05-01 19:01] LABS: BASO % 0.5 % (0.0-2.0); EOS # 0.3 K/uL (0.0-0.7); EOS % 6.2 % (0.0-4.0); LYMPH % 35.6 % (20.0-40.0); MEAN CELL VOLUME 89.6 fL (81.0-99.0); MEAN CORPUSCULAR HEMOGLOBIN 28.8 pg (27.0-31.0); MEAN CORPUSCULAR HGB CONC 32.2 g/dL (33.0-37.0); MEAN PLATELET VOLUME 10.6 fL (7.2-11.7); MONO # 0.6 K/uL (0.0-0.8); MONO % 11.3 % (0.0-10.0); NEUT # 2.6 K/uL (1.8-7.0); NEUT % 46.4 % (50.0-75.0); NRBC % 0.1 % (0.0-2.0); RBC 3.8 Mil/uL (3.80-5.20); WHITE BLOOD COUNT 5.6 K/uL (4.8-10.8)
[2017-05-01 19:19] LABS: ALB/GLOB RATIO 1.3 (1.0-2.1); ALBUMIN 4.6 g/dL (3.5-5.0); CALCIUM 6.6 mg/dl (8.6-10.4); MAGNESIUM 2.4 mg/dL (1.6-2.3)
[2017-05-01] MEDS ORDERED: Sod Polystyrene Sulf 15 gm/60 ml Susp PO ONE (20:12)
[2017-05-01] MEDS ORDERED: Sod Polystyrene Sulf 15 gm/60 ml Susp ONE (20:30)
[2017-05-01] MEDS ORDERED: (Lantus) Insulin Glargine, Recombinant SC ONE (23:04)
[2017-05-01] MEDS: (Lantus) Insulin Glargine, Recombinant SC SCH (23:07)
--- NOTE | 2017-05-01 23:11 | CP.PCM.HP ---
<Enrique Church - Last Filed: 05/02/17 07:02> History of Present Illness - History of Present Illness History of Present Illness: PGY-1 H&P for Dr. Leroy CC: Missed dialysis This is a 41 year old female with PMHx of type 1 diabetes, hypertension, ESRD on HD (M, W, F), depression who presents due to a missed dialysis session earlier today. Patient states that she missed her session because she was feeling depressed due to issues and stressors in her home. Patient states that she is experiencing a lot of stress due to her father. Patient also states that her session on Saturday was cut short because she could not stay still due to cramping pains on her anterior thighs. Patient states that she will also experiences numbness and electrical pain in her hands as well. Patient has tried an unspecified antidepressant medication in the past but without any success. Patient denies any other acute complaints including suicidal or homicidal ideation. Of note, patient also states that the people at her dialysis center told her that they are having a hard time sticking her in her AV fistula access site. PMH: DM1, HTN, ESRD on dialysis MWF [facility] with Dr. Velazquez, Hx of CVA, depression PSH: B/l cataracts, R. retina surgery, AV shunt in R. arm, Embolectomy from R. LE, AV fistula L UE collapsed. FH: Mother - DM/ESRD; Dad - Heart problems, prostate cancer SH: denies alcohol, smoking, drugs. Lives with father, step mother in siblings. 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: Humalog 4 units ACTID, Lantus 6 units HS, Labetolol 300 mg PO BID, Minoxidil 10 mg PO BID, Clonidine 0.2 mg PO BID, Lyrica 50 mg PO HS, Sensipar 90 mg daily, Renvela 3 tabs TID, Nexium 40 mg daily Present on Admission - Present on Admission Any Indicators Present on Admission: Yes History of DVT/PE: Yes Review of Systems - Constitutional Constitutional: absent: Chills, Fever - EENT Eyes: absent: Change in Vision Ears: absent: Decreased Hearing Nose/Mouth/Throat: absent: Nasal Congestion - Cardiovascular Cardiovascular: absent: Chest Pain - Respiratory Respiratory: absent: Dyspnea - Gastrointestinal Gastrointestinal: absent: Abdominal Pain, Constipation, Diarrhea, Nausea, Vomiting - Genitourinary Genitourinary: absent: Dysuria - Musculoskeletal Musculoskeletal: Numbness, Other (anterior thigh pain) - Integumentary Integumentary: absent: Rash - Neurological Neurological: Paresthesias - Psychiatric Psychiatric: Depression. absent: Homicidal Ideation, Suicidal Ideation - Endocrine Endocrine: absent: Fatigue, Palpitations Past Patient History - Infectious Disease Hx of Infectious Diseases: None - Past Medical History & Family History Past Medical History?: Yes - Past Social History Smoking Status: Never Smoked - CARDIAC Hx Hypertension: Yes - PULMONARY Hx Pneumonia: Yes - NEUROLOGICAL Hx Seizures: Yes (2008) - HEENT Hx HEENT Problems: Yes Hx Cataracts: Yes (HAD CUATE CATARACT SURGERY) - RENAL Hx Chronic Kidney Disease: Yes Hx Kidney Stones: No - ENDOCRINE/METABOLIC Hx Endocrine Disorders: Yes Hx Diabetes Mellitus Type 1: Yes - HEMATOLOGICAL/ONCOLOGICAL Hx Anemia: Yes - INTEGUMENTARY Hx Dermatological Problems: No - MUSCULOSKELETAL/RHEUMATOLOGICAL Hx Fractures: Yes (RT ANKLE) - GASTROINTESTINAL Hx Gastrointestinal Disorders: Yes Hx Ulcer: Yes - GENITOURINARY/GYNECOLOGICAL Hx Genitourinary Disorders: No - PSYCHIATRIC Hx Anxiety: Yes Hx Depression: Yes Hx Substance Use: No - SURGICAL HISTORY Hx Surgeries: Yes Hx Arteriovenous Shunt: Yes (NON FUNC MITZI, NEW SIDNEY) Hx Cataract Extraction: Yes Hx Eye Surgery: Yes (RETINA RT) Hx Vascular Access Device: Yes (LEFT AV FISTULA) - ANESTHESIA Hx Anesthesia: Yes Hx Anesthesia Reactions: No Hx Malignant Hyperthermia: No Meds Allergies/Adverse Reactions: Allergies Allergy/AdvReac Type Severity Reaction Status Date / Time No Known Allergies Allergy Verified 05/01/17 17:35 Results - Vital Signs Recent Vital Signs: Last Vital Signs Temp 98.1 F 05/01/17 22:44 Pulse 77 05/01/17 22:44 Resp 18 05/01/17 22:44 BP 121/61 05/01/17 22:44 Pulse Ox 96 05/01/17 22:44 - Labs Result Diagrams: 05/01/17 18:54 05/01/17 18:54 Labs: Laboratory Results - last 24 hr 05/01/17 05/01/17 05/01/17 18:54 18:54 23:00 WBC 5.6 RBC 3.80 Hgb 11.0 Hct 34.1 MCV 89.6 D MCH 28.8 MCHC 32.2 L RDW 14.0 Plt Count 162 MPV 10.6 Neut % (Auto) 46.4 L Lymph % (Auto) 35.6 [place] % (Auto) 11.3 H Eos % (Auto) 6.2 H Baso % (Auto) 0.5 Neut # 2.6 Lymph # 2.0 [place] # 0.6 Eos # 0.3 Baso # 0.0 Sodium 130 L Potassium 6.1 H Chloride 90 L Carbon Dioxide 26 Anion Gap 20 BUN 57 H Creatinine 7.7 H* D Est GFR ( Amer) 7 Est GFR (Non-Af Amer) 6 POC Glucose (mg/dL) 159 H Random Glucose 108 H Calcium 6.6 L Magnesium 2.4 H Total Bilirubin 0.8 AST 20 ALT 16 Alkaline Phosphatase 139 H Total Protein 8.1 Albumin 4.6 Globulin 3.5 Albumin/Globulin Ratio 1.3 Assessment & Plan - Assessment and Plan (Free Text) Plan: ESRD (end stage renal disease) on dialysis Dialysis MWF [facility] Nephrology consult Dr. Velazquez, help appreciated continued home Sensipar 90 PO daily continued home Renvela TID Diabetes type I continued home Humalog 4 units SC ACTID continued home Lantus 6 units HS continued home Lyrica 50 mg PO HS Hypertension Continued home Clonidine 0.2 PO BID Continued home Labetalol 300 PO BID Continued home Minoxidil 10 PO BID Prophylactic measure Heparin 5000 units SC Q8 Protonix 40 mg PO daily Renal Dialysis diet Case DW Dr. Rad Church <Arturo Leroy P - Last Filed: 05/02/17 07:25> Results - Vital Signs Recent Vital Signs: Last Vital Signs Temp 98.5 F 05/02/17 05:55 Pulse 81 05/02/17 05:55 Resp 18 05/02/17 05:55 BP 122/68 05/02/17 05:55 Pulse Ox 95 05/02/17 05:55 - Labs Result Diagrams: 05/01/17 18:54 05/01/17 18:54 Labs: Laboratory Results - last 24 hr 05/01/17 05/01/17 05/01/17 18:54 18:54 23:00 WBC 5.6 RBC 3.80 Hgb 11.0 Hct 34.1 MCV 89.6 D MCH 28.8 MCHC 32.2 L RDW 14.0 Plt Count 162 MPV 10.6 Neut % (Auto) 46.4 L Lymph % (Auto) 35.6 [place] % (Auto) 11.3 H Eos % (Auto) 6.2 H Baso % (Auto) 0.5 Neut # 2.6 Lymph # 2.0 [place] # 0.6 Eos # 0.3 Baso # 0.0 Sodium 130 L Potassium 6.1 H Chloride 90 L Carbon Dioxide 26 Anion Gap 20 BUN 57 H Creatinine 7.7 H* D Est GFR ( Amer) 7 Est GFR (Non-Af Amer) 6 POC Glucose (mg/dL) 159 H Random Glucose 108 H Calcium 6.6 L Magnesium 2.4 H Total Bilirubin 0.8 AST 20 ALT 16 Alkaline Phosphatase 139 H Total Protein 8.1 Albumin 4.6 Globulin 3.5 Albumin/Globulin Ratio 1.3 05/02/17 05/02/17 05/02/17 02:52 02:55 03:13 WBC RBC Hgb Hct MCV MCH MCHC RDW Plt Count MPV Neut % (Auto) Lymph % (Auto) [place] % (Auto) Eos % (Auto) Baso % (Auto) Neut # Lymph # [place] # Eos # Baso # Sodium Potassium Chloride Carbon Dioxide Anion Gap BUN Creatinine Est GFR ( Amer) Est GFR (Non-Af Amer) POC Glucose (mg/dL) 42 L 40 L 48 L Random Glucose Calcium Magnesium Total Bilirubin AST ALT Alkaline Phosphatase Total Protein Albumin Globulin Albumin/Globulin Ratio 05/02/17 05/02/17 03:32 04:12 WBC RBC Hgb Hct MCV MCH MCHC RDW Plt Count MPV Neut % (Auto) Lymph % (Auto) [place] % (Auto) Eos % (Auto) Baso % (Auto) Neut # Lymph # [place] # Eos # Baso # Sodium Potassium Chloride Carbon Dioxide Anion Gap BUN Creatinine Est GFR ( Amer) Est GFR (Non-Af Amer) POC Glucose (mg/dL) 114 H 118 H Random Glucose Calcium Magnesium Total Bilirubin AST ALT Alkaline Phosphatase Total Protein Albumin Globulin Albumin/Globulin Ratio Attending/Attestation - Attestation I have personally seen and examined this patient.: Yes I have fully participated in the care of the patient.: Yes I have reviewed all pertinent clinical information: Yes Notes (Text): Missed HD yesterday and done 1/2 on Saturday as patient had argument with father and also mentions getting harder to use right arm av fistula, h/o type1 dm, neuropathy, htn, cataracts. Continue home meds, hd scheduled today, surg consult for av fistula assessment, see orders for detail.
--- NOTE | 2017-05-02 02:14 | CP.PCM.CON ---
History of Present Illness - History of Present Illness History of Present Illness: Vascular Surgery Note for Dr. Finley Reason for Consult: difficult HD access 41 F with PMH of type 1 diabetes, HTN, ESRD on HD (MWF), and depression who presents to [facility] because of difficult HD access. Patient missed her dialysis session Monday 05/01. She states that her session on Saturday ended early because she could not stay still due to cramping pains in thighs. Patient also states that the dialysis center told her that it is difficult to use her AV shunt access site. Patient denies pain. Patient reports normal strength. She states she has numbness and tingling which is chronic due to diabetes. Patient denies fever/chills, cp, SOB, abdominal pain, nausea/vomiting, diarrhea, incontinence, urinary symptoms. PMH: DM1, HTN, ESRD on dialysis MWF, Hx of CVA, depression Med: as per EMR Allergy: NKDA PSH: B/l cataracts, R. retina surgery, AV shunt in R. arm, Embolectomy from R. LE, AV fistula L UE collapsed. FH: Mother - DM/ESRD; Dad - Heart problems, prostate cancer SH: denies alcohol/tobacco/illicit drug uses; Lives with father, step mother and siblings Review of Systems - Review of Systems All systems: reviewed and no additional remarkable complaints except (as per HPI ) Past Patient History - Infectious Disease Hx of Infectious Diseases: None - Past Medical History & Family History Past Medical History?: Yes - Past Social History Smoking Status: Never Smoked - CARDIAC Hx Hypertension: Yes - PULMONARY Hx Pneumonia: Yes - NEUROLOGICAL Hx Seizures: Yes (2008) - HEENT Hx HEENT Problems: Yes Hx Cataracts: Yes (HAD CUATE CATARACT SURGERY) - RENAL Hx Chronic Kidney Disease: Yes Hx Kidney Stones: No - ENDOCRINE/METABOLIC Hx Endocrine Disorders: Yes Hx Diabetes Mellitus Type 1: Yes - HEMATOLOGICAL/ONCOLOGICAL Hx Anemia: Yes - INTEGUMENTARY Hx Dermatological Problems: No - MUSCULOSKELETAL/RHEUMATOLOGICAL Hx Fractures: Yes (RT ANKLE) - GASTROINTESTINAL Hx Gastrointestinal Disorders: Yes Hx Ulcer: Yes - GENITOURINARY/GYNECOLOGICAL Hx Genitourinary Disorders: No - PSYCHIATRIC Hx Anxiety: Yes Hx Depression: Yes Hx Substance Use: No - SURGICAL HISTORY Hx Surgeries: Yes Hx Arteriovenous Shunt: Yes (NON FUNC MITZI, NEW SIDNEY) Hx Cataract Extraction: Yes Hx Eye Surgery: Yes (RETINA RT) Hx Vascular Access Device: Yes (LEFT AV FISTULA) - ANESTHESIA Hx Anesthesia: Yes Hx Anesthesia Reactions: No Hx Malignant Hyperthermia: No Meds Allergies/Adverse Reactions: Allergies Allergy/AdvReac Type Severity Reaction Status Date / Time No Known Allergies Allergy Verified 05/01/17 17:35 - Medications Medications: Current Medications Cinacalcet (Sensipar) 90 mg PO DAILY [facility] Clonidine HCl (Catapres) 0.2 mg PO BID [facility] Heparin Sodium (Porcine) (Heparin) 5,000 units SC Q8 [facility] Insulin Aspart (Novolog) 4 unit SC ACTID [facility] Insulin Glargine (Lantus) 6 unit SC HS [facility] Last Admin: 05/01/17 23:07 Dose: 6 units Insulin Human Regular (Novolin R) 0 unit SC ACHS [facility] PRN Reason: Protocol Labetalol HCl (Normodyne) 300 mg PO BID [facility] Minoxidil (Loniten) 10 mg PO BID [facility] Pantoprazole Sodium (Protonix Ec Tab) 40 mg PO DAILY [facility] Pregabalin (Lyrica) 50 mg PO HS [facility] Last Admin: 05/01/17 23:08 Dose: 50 mg Sevelamer Carbonate (Renvela) 800 mg PO TIDCC [facility] Tramadol HCl (Ultram) 25 mg PO ONCE ONE Stop: 05/02/17 23:38 Last Admin: 05/02/17 00:10 Dose: 25 mg Physical Exam - Constitutional Appears: No Acute Distress - Head Exam Head Exam: ATRAUMATIC, NORMOCEPHALIC - Eye Exam Eye Exam: Normal appearance - ENT Exam ENT Exam: Mucous Membranes Moist - Respiratory Exam Respiratory Exam: NORMAL BREATHING PATTERN - Cardiovascular Exam Cardiovascular Exam: REGULAR RHYTHM - GI/Abdominal Exam GI & Abdominal Exam: Normal Bowel Sounds, Soft. absent: Tenderness - Extremities Exam Additional comments: RUE: av shunt has palpable thrill and audible bruit, radial pulse present - slightly faint, no TTP, no evidence of erythema or edema - Back Exam Back exam: absent: CVA tenderness (L), CVA tenderness (R) - Neurological Exam Neurological exam: Alert, CN II-XII Intact, Oriented x3 - Psychiatric Exam Psychiatric exam: Normal Affect, Normal Mood - Skin Skin Exam: Dry, Intact, Normal Color, Warm Results - Vital Signs Recent Vital Signs: Last Vital Signs Temp 98.0 F 05/02/17 01:05 Pulse 85 05/02/17 01:05 Resp 18 05/02/17 01:05 BP 139/66 05/02/17 01:05 Pulse Ox 98 05/02/17 01:05 - Labs Result Diagrams: 05/01/17 18:54 05/01/17 18:54 Labs: Laboratory Results - last 24 hr 05/01/17 05/01/17 05/01/17 18:54 18:54 23:00 WBC 5.6 RBC 3.80 Hgb 11.0 Hct 34.1 MCV 89.6 D MCH 28.8 MCHC 32.2 L RDW 14.0 Plt Count 162 MPV 10.6 Neut % (Auto) 46.4 L Lymph % (Auto) 35.6 [place] % (Auto) 11.3 H Eos % (Auto) 6.2 H Baso % (Auto) 0.5 Neut # 2.6 Lymph # 2.0 [place] # 0.6 Eos # 0.3 Baso # 0.0 Sodium 130 L Potassium 6.1 H Chloride 90 L Carbon Dioxide 26 Anion Gap 20 BUN 57 H Creatinine 7.7 H* D Est GFR ( Amer) 7 Est GFR (Non-Af Amer) 6 POC Glucose (mg/dL) 159 H Random Glucose 108 H Calcium 6.6 L Magnesium 2.4 H Total Bilirubin 0.8 AST 20 ALT 16 Alkaline Phosphatase 139 H Total Protein 8.1 Albumin 4.6 Globulin 3.5 Albumin/Globulin Ratio 1.3 Assessment & Plan - Assessment and Plan (Free Text) Plan: 41 F with AV shunt access problems -Hemo access duplex -Management as per primary -Discussed with Dr. Tushar Mosley PGY1
[2017-05-02] MEDS: (Novolin R) Insulin Human Regular 100 units/ml vial SC SCH ×4 (08:24→21:40)
[2017-05-02] MEDS: (Novolog) Insulin Aspart, Recombinant 100 u/ml 10 ml vial SC SCH ×3 (08:25→16:07)
[2017-05-02] MEDS ORDERED: Labetalol Hydrochloride 300 mg Tab PO SCH (10:00)
[2017-05-02] MEDS: Labetalol Hydrochloride 300 mg Tab PO SCH ×2 (10:42→18:04)
[2017-05-02] MEDS: Pantoprazole 40 mg EC Tab PO SCH (10:42)
--- NOTE | 2017-05-02 11:02 | CP.PCM.CON ---
History of Present Illness - History of Present Illness History of Present Illness: CC: Missed dialysis This is a 41 year old female with PMHx of type 1 diabetes, hypertension, ESRD on HD (M, W, F), depression who presents due to a missed dialysis session earlier today. Patient states that she missed her session because she was feeling depressed due to issues and stressors in her home. Patient states that she is experiencing a lot of stress due to her father. Patient also states that her session on Saturday was cut short because she could not stay still due to cramping pains on her anterior thighs. Patient states that she will also experiences numbness and electrical pain in her hands as well. Patient has tried an unspecified antidepressant medication in the past but without any success. Patient denies any other acute complaints including suicidal or homicidal ideation. Of note, patient also states that the people at her dialysis center told her that they are having a hard time sticking her in her AV fistula access site. PMH: DM1, HTN, ESRD on dialysis MWF, Hx of CVA, depression PSH: B/l cataracts, R. retina surgery, AV shunt in R. arm, Embolectomy from R. LE, AV fistula L UE collapsed. FH: Mother - DM/ESRD; Dad - Heart problems, prostate cancer SH: denies alcohol, smoking, drugs. Lives with father, step mother in siblings. 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: Humalog 4 units ACTID, Lantus 6 units HS, Labetolol 300 mg PO BID, Minoxidil 10 mg PO BID, Clonidine 0.2 mg PO BID, Lyrica 50 mg PO HS, Sensipar 90 mg daily, Renvela 3 tabs TID, Nexium 40 mg daily Missed dialysis 05/01 - will need emergent dialysis for CHF, hyperkalemia- arranged Review of Systems - Constitutional Constitutional: Weight Gain, Weakness - EENT Eyes: absent: As Per HPI, Blind Spots, Blurred Vision, Change in Vision, Decreased Night Vision, Diplopia, Discharge, Dry Eye, Exophthalmos, Floaters, Irritation, Itchy Eyes, Loss of Peripheral Vision, Pain, Photophobia, Requires Corrective Lenses, Sees Flashes, Spots in Vision, Tunnel Vision, Other Visual Disturbances, Loss of Vision, Other Ears: absent: As Per HPI, Decreased Hearing, Ear Discharge, Ear Pain, Tinnitus, Abnormal Hearing, Disequilibrium, Dizziness, Other Nose/Mouth/Throat: absent: As Per HPI, Epistaxis, Nasal Congestion, Nasal Discharge, Nasal Obstruction, Nasal Trauma, Nose Pain, Post Nasal Drip, Sinus Pain, Sinus Pressure, Bleeding Gums, Change in Voice, Dental Pain, Dry Mouth, Dysphagia, Halitosis, Hoarsness, Lip Swelling, Mouth Lesions, Mouth Pain, Odynophagia, Sore Throat, Throat Swelling, Tongue Swelling, Facial Pain, Neck Pain, Neck Mass, Other - Cardiovascular Cardiovascular: Chest Pain, Orthopnea, Rapid Heart Rate - Respiratory Respiratory: Cough, Dyspnea on Exertion - Gastrointestinal Gastrointestinal: Constipation, Nausea - Genitourinary Genitourinary: As Per HPI - Musculoskeletal Musculoskeletal: Muscle Weakness, Myalgias - Neurological Neurological: Weakness Past Patient History - Infectious Disease Hx of Infectious Diseases: None - Past Medical History & Family History Past Medical History?: Yes Past Family History: Reviewed and not pertinent - Past Social History Smoking Status: Never Smoked Chewing Tobacco Use: No Cigar Use: No Alcohol: None Home Situation {Lives}: With Family - CARDIAC Hx Hypertension: Yes - PULMONARY Hx Pneumonia: Yes - NEUROLOGICAL Hx Seizures: Yes (2008) - HEENT Hx HEENT Problems: Yes Hx Cataracts: Yes (HAD CUATE CATARACT SURGERY) - RENAL Hx Chronic Kidney Disease: Yes Hx Kidney Stones: No - ENDOCRINE/METABOLIC Hx Endocrine Disorders: Yes Hx Diabetes Mellitus Type 1: Yes - HEMATOLOGICAL/ONCOLOGICAL Hx Anemia: Yes - INTEGUMENTARY Hx Dermatological Problems: No - MUSCULOSKELETAL/RHEUMATOLOGICAL Hx Fractures: Yes (RT ANKLE) - GASTROINTESTINAL Hx Gastrointestinal Disorders: Yes Hx Ulcer: Yes - GENITOURINARY/GYNECOLOGICAL Hx Genitourinary Disorders: No - PSYCHIATRIC Hx Anxiety: Yes Hx Depression: Yes Hx Substance Use: No - SURGICAL HISTORY Hx Surgeries: Yes Hx Arteriovenous Shunt: Yes (NON FUNC MITZI, NEW SIDNEY) Hx Cataract Extraction: Yes Hx Eye Surgery: Yes (RETINA RT) Hx Vascular Access Device: Yes (LEFT AV FISTULA) - ANESTHESIA Hx Anesthesia: Yes Hx Anesthesia Reactions: No Hx Malignant Hyperthermia: No Meds Allergies/Adverse Reactions: Allergies Allergy/AdvReac Type Severity Reaction Status Date / Time No Known Allergies Allergy Verified 05/01/17 17:35 - Medications Medications: Current Medications Cinacalcet (Sensipar) 90 mg PO DAILY [facility] Clonidine HCl (Catapres) 0.2 mg PO BID [facility] Last Admin: 05/02/17 10:42 Dose: Not Given Heparin Sodium (Porcine) (Heparin) 5,000 units SC Q8 [facility] Last Admin: 05/02/17 05:55 Dose: 5,000 units Insulin Aspart (Novolog) 4 unit SC ACTID [facility] Last Admin: 05/02/17 08:25 Dose: Not Given Insulin Glargine (Lantus) 6 unit SC HS [facility] Last Admin: 05/01/17 23:07 Dose: 6 units Insulin Human Regular (Novolin R) 0 unit SC ACHS [facility] PRN Reason: Protocol Last Admin: 05/02/17 08:24 Dose: Not Given Labetalol HCl (Normodyne) 300 mg PO BID [facility] Last Admin: 05/02/17 10:42 Dose: Not Given Minoxidil (Loniten) 10 mg PO BID [facility] Last Admin: 05/02/17 10:42 Dose: Not Given Pantoprazole Sodium (Protonix Ec Tab) 40 mg PO DAILY [facility] Last Admin: 05/02/17 10:42 Dose: Not Given Pregabalin (Lyrica) 50 mg PO [facility] Last Admin: 05/01/17 23:08 Dose: 50 mg Sevelamer Carbonate (Renvela) 800 mg PO TIDCC [facility] Last Admin: 05/02/17 10:39 Dose: 800 mg Tramadol HCl (Ultram) 25 mg PO ONCE ONE Stop: 05/02/17 23:38 Last Admin: 05/02/17 00:10 Dose: 25 mg Physical Exam - Constitutional Appears: Non-toxic, Chronically Ill - Head Exam Head Exam: ATRAUMATIC, NORMAL INSPECTION - Eye Exam Eye Exam: EOMI. absent: Normal appearance - Neck Exam Neck exam: Positive for: Full Rom. Negative for: Normal Inspection - Respiratory Exam Respiratory Exam: Rales, Respiratory Distress - Cardiovascular Exam Cardiovascular Exam: REGULAR RHYTHM, +S1 - GI/Abdominal Exam GI & Abdominal Exam: Soft. absent: Tenderness - Extremities Exam Extremities exam: Positive for: normal inspection. Negative for: tenderness - Neurological Exam Neurological exam: Alert, CN II-XII Intact - Skin Skin Exam: Dry, Warm Results - Vital Signs Recent Vital Signs: Last Vital Signs Temp 98.0 F 05/02/17 08:40 Pulse 82 05/02/17 08:40 Resp 20 05/02/17 08:40 BP 152/61 H 01/11/18 08:40 Pulse Ox 95 05/02/17 08:40 - Labs Result Diagrams: 05/01/17 18:54 05/01/17 18:54 Labs: Laboratory Results - last 24 hr 05/01/17 05/01/17 05/01/17 18:54 18:54 23:00 WBC 5.6 RBC 3.80 Hgb 11.0 Hct 34.1 MCV 89.6 D MCH 28.8 MCHC 32.2 L RDW 14.0 Plt Count 162 MPV 10.6 Neut % (Auto) 46.4 L Lymph % (Auto) 35.6 [place] % (Auto) 11.3 H Eos % (Auto) 6.2 H Baso % (Auto) 0.5 Neut # 2.6 Lymph # 2.0 [place] # 0.6 Eos # 0.3 Baso # 0.0 Sodium 130 L Potassium 6.1 H Chloride 90 L Carbon Dioxide 26 Anion Gap 20 BUN 57 H Creatinine 7.7 H* D Est GFR ( Amer) 7 Est GFR (Non-Af Amer) 6 POC Glucose (mg/dL) 159 H Random Glucose 108 H Calcium 6.6 L Magnesium 2.4 H Total Bilirubin 0.8 AST 20 ALT 16 Alkaline Phosphatase 139 H Total Protein 8.1 Albumin 4.6 Globulin 3.5 Albumin/Globulin Ratio 1.3 05/02/17 05/02/17 05/02/17 02:52 02:55 03:13 WBC RBC Hgb Hct MCV MCH MCHC RDW Plt Count MPV Neut % (Auto) Lymph % (Auto) [place] % (Auto) Eos % (Auto) Baso % (Auto) Neut # Lymph # [place] # Eos # Baso # Sodium Potassium Chloride Carbon Dioxide Anion Gap BUN Creatinine Est GFR ( Amer) Est GFR (Non-Af Amer) POC Glucose (mg/dL) 42 L 40 L 48 L Random Glucose Calcium Magnesium Total Bilirubin AST ALT Alkaline Phosphatase Total Protein Albumin Globulin Albumin/Globulin Ratio 05/02/17 05/02/17 03:32 04:12 WBC RBC Hgb Hct MCV MCH MCHC RDW Plt Count MPV Neut % (Auto) Lymph % (Auto) [place] % (Auto) Eos % (Auto) Baso % (Auto) Neut # Lymph # [place] # Eos # Baso # Sodium Potassium Chloride Carbon Dioxide Anion Gap BUN Creatinine Est GFR ( Amer) Est GFR (Non-Af Amer) POC Glucose (mg/dL) 114 H 118 H Random Glucose Calcium Magnesium Total Bilirubin AST ALT Alkaline Phosphatase Total Protein Albumin Globulin Albumin/Globulin Ratio Assessment & Plan (1) CHF (congestive heart failure) Status: Acute (2) Type 1 diabetes mellitus with diabetic nephropathy Status: Acute (3) ESRD (end stage renal disease) on dialysis Status: Acute (4) Hyperkalemia Status: Acute - Assessment and Plan (Free Text) Plan: Immediate dialysis for adequate fluid removal Rx hyperkalemia
[2017-05-02] MEDS ORDERED: Influenza Vaccine 60 mcg/0.5 mL SYR (4YR UP) IM ONE (11:53)
[2017-05-02] MEDS ORDERED: Pneumococcal 23-Valent Vaccine IM ONE (11:53)
--- NOTE | 2017-05-02 13:37 | VASCLAB ---
PROCEDURE: Arterial-Venous shunt Evaluation. HISTORY: Poor flow at hemodialysis PRIORS: None. TECHNIQUE: Ultrasound evaluation of arterial-venous shunt with color doppler and velocity measurements. Report prepared by LASHELL Tapia, RVT FINDINGS: Type of arterial-venous shunt: Vein Afferent Artery: Brachial Efferent Vein: Basilic 1. Afferent Artery: Velocity 212 cm/s Image Characteristics: 2. Inflow Anastamosis: Velocity 644 cm/s Image Characteristics: 3. Mid shunt flow: Velocity cm/s Image Characteristics: 4. Outflow Anastamosis: Velocity cm/s Image Characteristics: 5. Efferent Vein: Velocity cm/s Image Characteristics: OTHER FINDINGS: The anastamosis velocity is 644 cm/s, distal upper arm basilic vein velocity 635 cm/s, mid 297 cm/s, proximal 126 cm/s, and axillary vein 173 cm/s. IMPRESSION: RIGHT BRACHIAL-BASILIC VEIN FISTULA Hemodynamically significant stenosis in the right brachial-basilic fistula anastamosis and distal upper arm basilic within stent.
[2017-05-02] MEDS ORDERED: Dextrose 50% SYRINGE Inj (50 ml) IVP PRN (14:27)
[2017-05-02] MEDS ORDERED: Dextrose 50% SYRINGE Inj (50 ml) IV STA (14:27)
[2017-05-02] MEDS ORDERED: Glucagon Recombinant 1 mg Inj IM PRN (14:27)
[2017-05-02] MEDS ORDERED: Dextrose 50% VIAL Inj (50 ml) IV ONE (15:59)
[2017-05-02] MEDS ORDERED: Dextrose 50% VIAL Inj (50 ml) IV PRN (16:15)
--- NOTE | 2017-05-02 19:54 | CP.PCM.PN ---
Subjective - Date & Time of Evaluation Date of Evaluation: 05/02/17 Time of Evaluation: 07:05 - Subjective Subjective: Patient has been seen and examined at bedside this morning. She complained of generalized body pains especially in her neck with radiation down to her hands bilaterally associated with numbness and tingling in both hands. She also complained b/l of leg cramps. Patient also complains of depression. She denies any chest pain, SOB, n/v/d, constipation, or urinary symptoms (patient stated she has not urinated in about 2 years). Objective - Vital Signs/Intake and Output Vital Signs (last 24 hours): Temp Pulse Resp BP Pulse Ox 97.3 F L 85 20 125/67 95 05/02/17 16:00 05/02/17 16:00 05/02/17 16:00 05/02/17 16:00 05/02/17 16:00 - Medications Medications: Current Medications Cinacalcet (Sensipar) 90 mg PO DAILY [facility] Last Admin: 05/02/17 13:12 Dose: Not Given Clonidine HCl (Catapres) 0.2 mg PO BID [facility] Last Admin: 05/02/17 17:59 Dose: 0.2 mg Cyclobenzaprine HCl (Flexeril) 5 mg PO TID PRN PRN Reason: Muscle spasm Last Admin: 05/02/17 18:04 Dose: 5 mg Dextrose (Glutose 15) 0 gm PO .ONCE PRN; Protocol PRN Reason: Hypoglycemia Protocol Dextrose (Dextrose 50%) 0 ml IV .STAT PRN; Protocol PRN Reason: Hypoglycemia Protocol Last Admin: 05/02/17 16:01 Dose: 50 ml Glucagon (Glucagen Diagnostic Kit) 0 mg IM .STAT PRN; Protocol PRN Reason: Hypoglycemia Protocol Heparin Sodium (Porcine) (Heparin) 5,000 units SC Q8 [facility] Last Admin: 05/02/17 14:00 Dose: Not Given Insulin Aspart (Novolog) 4 unit SC ACTID [facility] Last Admin: 05/02/17 16:07 Dose: Not Given Insulin Glargine (Lantus) 6 unit SC HS [facility] Last Admin: 05/01/17 23:07 Dose: 6 units Insulin Human Regular (Novolin R) 0 unit SC ACHS [facility] PRN Reason: Protocol Last Admin: 05/02/17 16:07 Dose: Not Given Labetalol HCl (Normodyne) 300 mg PO BID [facility] Last Admin: 05/02/17 18:04 Dose: 300 mg Minoxidil (Loniten) 10 mg PO BID [facility] Last Admin: 05/02/17 18:04 Dose: 10 mg Pantoprazole Sodium (Protonix Ec Tab) 40 mg PO DAILY [facility] Last Admin: 05/02/17 10:42 Dose: Not Given Pregabalin (Lyrica) 50 mg PO HS [facility] Last Admin: 05/01/17 23:08 Dose: 50 mg Sevelamer Carbonate (Renvela) 800 mg PO TIDCC [facility] Last Admin: 05/02/17 17:59 Dose: 800 mg Tramadol HCl (Ultram) 25 mg PO ONCE ONE Stop: 05/02/17 23:38 Last Admin: 05/02/17 00:10 Dose: 25 mg - Labs Labs: 05/01/17 18:54 05/01/17 18:54 - Head Exam Head Exam: ATRAUMATIC, NORMAL INSPECTION, NORMOCEPHALIC - Eye Exam Eye Exam: EOMI, Normal appearance - ENT Exam ENT Exam: Mucous Membranes Moist - Neck Exam Additional comments: Paraspinal tenderness B/L Osteopathic Exam: C3-C6 SideBend Right Rotated Right. - Respiratory Exam Respiratory Exam: Clear to Ausculation Bilateral, NORMAL BREATHING PATTERN. absent: Rales, Rhonchi, Wheezes - Cardiovascular Exam Cardiovascular Exam: RRR, +S1, +S2, Murmur (Systolic ejection murmur) - GI/Abdominal Exam GI & Abdominal Exam: Soft, Normal Bowel Sounds. absent: Tenderness - Extremities Exam Extremities Exam: Normal Capillary Refill Additional comments: Right Arm A/V Fistula - Neurological Exam Neurological Exam: absent: Motor Sensory Deficit Neuro motor strength exam: Left Upper Extremity: 5, Right Upper Extremity: 5, Left Lower Extremity: 5, Right Lower Extremity: 5 - Psychiatric Exam Psychiatric exam: Depressed. absent: Suicidal Ideation - Skin Skin Exam: Dry, Intact, Normal Color, Warm Assessment and Plan - Assessment and Plan (Free Text) Assessment: 41 year old female with PMHx of type 1 diabetes, hypertension, ESRD on HD (M, W , F), and depression, who presents due to a missed dialysis session. Plan: ESRD on HD via Right Arm AV Fistula Hemodialysis Access Duplex US (05/02/17): hemodynamically significant stenosis in the right brachial -basilic fistula anastomosis and distal upper arm basilic with stent Sensipar 90mg Daily Sevelimr 800mg TID DM I Humalog 4 Units AC Lantus 6 Units HS Human RISS ACHS Hypoglyemia Protocol Consider Endocrine Consult Patient has very labile sugar HTN Labetolol 300 PO twice daily Minoxidil 10mg PO BID Clonidine 0.2mg PO BID Hx of Parasthesia/Neuropathic pain (Hands, Arm, Neck) Lyrica 5mg PO HS Cyclobenzaprine 5mg PO TID PRN Hx of GERD Protonix daily Proph Protonix Heparin Patient seen and discussed with Attending Gaston Ang - PGY1
--- NOTE | 2017-05-02 20:19 | PCM.RRT ---
MANAGER BATTERY Nurses Assessment - Situation Date: 05/02/17 Time MANAGER BATTERY was called: 14:21 MANAGER BATTERY Responder Arrival Time:: 14:25 MANAGER BATTERY Location:: 3D Dialysis MANAGER BATTERY Called By: RN - IV IV Inserted during MANAGER BATTERY?: No - Medication Medications Administered During MANAGER BATTERY: 50 ML of D50 - Stat Labs Ordered MANAGER BATTERY Other Labs Ordered: Blood Glucose - Time MANAGER BATTERY Ended Time MANAGER BATTERY Ended: 14:00 I.Reason for MANAGER BATTERY - A) Acute Change in Patient: Subjective: MANAGER BATTERY called at 1421 for hypoglycemia at 39. Patient give D50. Repeat accucheck read 481mg/dl. - Neurological Status (Select all that apply): Alert, Oriented - Constitutional Appears: Non-toxic, In Acute Distress - Head Head Exam: ATRAUMATIC, NORMAL INSPECTION - Eyes Eye Exam: EOMI, Normal appearance - Respiratory Exam Respiratory Exam: Clear to Ausculation Bilateral. absent: Rales, Rhonchi, Wheezes - Cardiovascular Exam Cardiovascular Exam: RRR, +S1, +S2 - GI/Abdominal Exam GI & Abdominal Exam: Soft. absent: Tenderness - Neurological Exam Neurological Exam: Alert, Awake, Oriented x3 Plan - Assessment of Findings&Treatment Plan Hypoglycemia D50 and Harman juice
[2017-05-02] MEDS: (Lantus) Insulin Glargine, Recombinant SC SCH (21:40)
[2017-05-02] MEDS ORDERED: Acetaminophen-Codeine 300/30 mg Tab PO ONE (22:53)
[2017-05-02] MEDS ORDERED: Tramadol 25 mg PO ONE (23:37)
--- NOTE | 2017-05-03 08:00 | CP.PCM.PN ---
Subjective - Date & Time of Evaluation Date of Evaluation: 05/03/17 Time of Evaluation: 08:26 - Subjective Subjective: Vascular Surgery Note for Dr. Finley Patient seen and examined today. No acute event overnight. AIR GRINDER was called yesterday while patient was at dialysis for hypoglycemia. Patient resting comfortably in bed this morning. Tolerating diet. No complaints at this time. Objective - Vital Signs/Intake and Output Vital Signs (last 24 hours): Temp Pulse Resp BP Pulse Ox 97.6 F 78 18 126/60 95 05/02/17 23:46 05/02/17 23:46 05/02/17 23:46 05/02/17 23:46 05/02/17 23:46 - Medications Medications: Current Medications Cinacalcet (Sensipar) 90 mg PO DAILY [facility] Last Admin: 05/02/17 13:12 Dose: Not Given Clonidine HCl (Catapres) 0.2 mg PO BID [facility] Last Admin: 05/02/17 17:59 Dose: 0.2 mg Cyclobenzaprine HCl (Flexeril) 5 mg PO TID PRN PRN Reason: Muscle spasm Last Admin: 05/02/17 18:04 Dose: 5 mg Dextrose (Glutose 15) 0 gm PO .ONCE PRN; Protocol PRN Reason: Hypoglycemia Protocol Dextrose (Dextrose 50%) 0 ml IV .STAT PRN; Protocol PRN Reason: Hypoglycemia Protocol Last Admin: 05/02/17 16:01 Dose: 50 ml Glucagon (Glucagen Diagnostic Kit) 0 mg IM .STAT PRN; Protocol PRN Reason: Hypoglycemia Protocol Heparin Sodium (Porcine) (Heparin) 5,000 units SC Q8 [facility] Last Admin: 05/03/17 05:42 Dose: Not Given Insulin Aspart (Novolog) 4 unit SC ACTID [facility] Last Admin: 05/02/17 16:07 Dose: Not Given Insulin Glargine (Lantus) 6 unit SC HS [facility] Last Admin: 05/02/17 21:40 Dose: Not Given Insulin Human Regular (Novolin R) 0 unit SC ACHS [facility] PRN Reason: Protocol Last Admin: 05/02/17 21:40 Dose: Not Given Labetalol HCl (Normodyne) 300 mg PO BID [facility] Last Admin: 05/02/17 18:04 Dose: 300 mg Minoxidil (Loniten) 10 mg PO BID [facility] Last Admin: 05/02/17 18:04 Dose: 10 mg Pantoprazole Sodium (Protonix Ec Tab) 40 mg PO DAILY [facility] Last Admin: 05/02/17 10:42 Dose: Not Given Pregabalin (Lyrica) 50 mg PO HS [facility] Last Admin: 05/02/17 21:33 Dose: 50 mg Sevelamer Carbonate (Renvela) 800 mg PO TIDCC [facility] Last Admin: 05/02/17 17:59 Dose: 800 mg - Labs Labs: 05/01/17 18:54 05/01/17 18:54 - Constitutional Appears: No Acute Distress - Head Exam Head Exam: ATRAUMATIC, NORMOCEPHALIC - Eye Exam Eye Exam: Normal appearance - ENT Exam ENT Exam: Mucous Membranes Moist - Respiratory Exam Respiratory Exam: NORMAL BREATHING PATTERN - Cardiovascular Exam Cardiovascular Exam: REGULAR RHYTHM - GI/Abdominal Exam GI & Abdominal Exam: Soft, Normal Bowel Sounds. absent: Tenderness - Extremities Exam Additional comments: AVF with palpable thrill and audile bruit - Neurological Exam Neurological Exam: Alert, Awake, Oriented x3 - Psychiatric Exam Psychiatric exam: Normal Affect, Normal Mood - Skin Skin Exam: Dry, Intact, Normal Color, Warm Assessment and Plan - Assessment and Plan (Free Text) Plan: 41 F with AVF access problems -Hemo access duplex showed stenosis -Patient had dialysis yesterday (HD MWF normally) -Fistulogram in vascular lab for stenosis -Management as per primary -Discussed with Dr. Tushar Mosley PGY1
[2017-05-03] MEDS: (Novolog) Insulin Aspart, Recombinant 100 u/ml 10 ml vial SC SCH ×3 (08:30→17:49)
[2017-05-03] MEDS: (Novolin R) Insulin Human Regular 100 units/ml vial SC SCH ×4 (08:52→21:48)
--- NOTE | 2017-05-03 09:14 | CP.PCM.PN ---
<Andrew Bashir - Last Filed: 05/03/17 17:08> Subjective - Date & Time of Evaluation Date of Evaluation: 05/03/17 Time of Evaluation: 09:11 - Subjective Subjective: PGY-[address] Fofana No acute events noted overnight. TRACTOR CRANE OPERATOR was called yesterday while patient was at dialysis for hypoglycemia. Tolerating diet. She complained of generalized body pains especially in her neck with radiation down to her hands bilaterally associated with numbness and tingling in both hands. She also complained b/l of leg cramps. Patient also complains of depression. She denies any chest pain, SOB, n/v/d, constipation, or urinary symptoms (patient stated she has not urinated in about 2 years). Objective - Vital Signs/Intake and Output Vital Signs (last 24 hours): Temp Pulse Resp BP Pulse Ox 97.7 F 71 20 120/58 L 98 05/03/17 08:12 05/03/17 08:12 05/03/17 08:12 05/03/17 08:12 05/03/17 08:22 - Medications Medications: Current Medications Cinacalcet (Sensipar) 90 mg PO DAILY [facility] Last Admin: 05/02/17 13:12 Dose: Not Given Clonidine HCl (Catapres) 0.2 mg PO BID [facility] Last Admin: 05/02/17 17:59 Dose: 0.2 mg Cyclobenzaprine HCl (Flexeril) 5 mg PO TID PRN PRN Reason: Muscle spasm Last Admin: 05/02/17 18:04 Dose: 5 mg Dextrose (Glutose 15) 0 gm PO .ONCE PRN; Protocol PRN Reason: Hypoglycemia Protocol Dextrose (Dextrose 50%) 0 ml IV .STAT PRN; Protocol PRN Reason: Hypoglycemia Protocol Last Admin: 05/02/17 16:01 Dose: 50 ml Glucagon (Glucagen Diagnostic Kit) 0 mg IM .STAT PRN; Protocol PRN Reason: Hypoglycemia Protocol Heparin Sodium (Porcine) (Heparin) 5,000 units SC Q8 [facility] Last Admin: 05/03/17 05:42 Dose: Not Given Insulin Aspart (Novolog) 4 unit SC ACTID [facility] Last Admin: 05/03/17 08:30 Dose: Not Given Insulin Glargine (Lantus) 6 unit SC HS [facility] Last Admin: 05/02/17 21:40 Dose: Not Given Insulin Human Regular (Novolin R) 0 unit SC ACHS [facility] PRN Reason: Protocol Last Admin: 05/03/17 08:52 Dose: 2 unit Labetalol HCl (Normodyne) 300 mg PO BID [facility] Last Admin: 05/02/17 18:04 Dose: 300 mg Minoxidil (Loniten) 10 mg PO BID [facility] Last Admin: 05/02/17 18:04 Dose: 10 mg Pantoprazole Sodium (Protonix Ec Tab) 40 mg PO DAILY [facility] Last Admin: 05/02/17 10:42 Dose: Not Given Pregabalin (Lyrica) 50 mg PO HS [facility] Last Admin: 05/02/17 21:33 Dose: 50 mg Sevelamer Carbonate (Renvela) 800 mg PO TIDCC [facility] Last Admin: 05/03/17 08:53 Dose: 800 mg - Labs Labs: 05/01/17 18:54 05/01/17 18:54 - Additional Findings Additional findings: - Head Exam Head Exam: ATRAUMATIC, NORMAL INSPECTION, NORMOCEPHALIC - Eye Exam Eye Exam: EOMI, Normal appearance - ENT Exam ENT Exam: Mucous Membranes Moist - Neck Exam Additional comments: Paraspinal tenderness B/L Osteopathic Exam: C3-C6 SideBend Right Rotated Right. - Respiratory Exam Respiratory Exam: Clear to Ausculation Bilateral, NORMAL BREATHING PATTERN. absent: Rales, Rhonchi, Wheezes - Cardiovascular Exam Cardiovascular Exam: RRR, +S1, +S2, Murmur (Systolic ejection murmur) - GI/Abdominal Exam GI & Abdominal Exam: Soft, Normal Bowel Sounds. absent: Tenderness - Extremities Exam Extremities Exam: Normal Capillary Refill Additional comments: Right Arm A/V Fistula - Neurological Exam Neurological Exam: absent: Motor Sensory Deficit Neuro motor strength exam: Left Upper Extremity: 5, Right Upper Extremity: 5, Left Lower Extremity: 5, Right Lower Extremity: 5 - Psychiatric Exam Psychiatric exam: Depressed. absent: Suicidal Ideation - Skin Skin Exam: Dry, Intact, Normal Color, Warm Assessment and Plan - Assessment and Plan (Free Text) Assessment: Assessment: 41 year old female with PMHx of type 1 diabetes, hypertension, ESRD on HD (M, W , F), and depression, who presents due to a missed dialysis session. ESRD on HD via Right Arm AV Fistula Vascular Surgery consult, Dr Finley * Fistulagram scheduled for 05/06/17 in AM - will be NPO after midnight the night before Nephrology consult, Dr Velazquez * HD TTS Hemodialysis Access Duplex US (05/02/17): hemodynamically significant stenosis in the right brachial - basilic fistula anastomosis and distal upper arm basilic with stent Sensipar 90mg Daily Sevelimr 800mg TID DM I Humalog 4 Units AC Lantus 6 Units HS Human RISS ACHS Hypoglyemia Protocol Consider Endocrine Consult Patient has very labile sugar HTN Labetolol 300 PO twice daily Minoxidil 10mg PO BID Clonidine 0.2mg PO BID Hx of Parasthesia/Neuropathic pain (Hands, Arm, Neck) Lyrica 75mg PO HS Cyclobenzaprine 5mg PO TID PRN Hx of GERD Protonix daily Proph Protonix 40mg PO QD Heparin 5000u SC Q8H Patient seen and discussed with Attending <Rosendo Fofana - Last Filed: 05/03/17 20:46> Objective - Vital Signs/Intake and Output Vital Signs (last 24 hours): Temp Pulse Resp BP Pulse Ox 98.2 F 101 H 18 125/61 95 05/03/17 15:35 05/03/17 16:40 05/03/17 15:35 05/03/17 15:35 05/03/17 15:35 Intake and Output: 05/03/17 05/04/17 18:59 06:59 Intake Total 300 Balance 300 - Medications Medications: Current Medications Cinacalcet (Sensipar) 90 mg PO DAILY [facility] Last Admin: 05/03/17 10:16 Dose: 90 mg Clonidine HCl (Catapres) 0.2 mg PO BID [facility] Last Admin: 05/03/17 17:47 Dose: 0.2 mg Cyclobenzaprine HCl (Flexeril) 5 mg PO TID PRN PRN Reason: Muscle spasm Last Admin: 05/03/17 13:10 Dose: 5 mg Dextrose (Glutose 15) 0 gm PO .ONCE PRN; Protocol PRN Reason: Hypoglycemia Protocol Dextrose (Dextrose 50%) 0 ml IV .STAT PRN; Protocol PRN Reason: Hypoglycemia Protocol Last Admin: 05/02/17 16:01 Dose: 50 ml Glucagon (Glucagen Diagnostic Kit) 0 mg IM .STAT PRN; Protocol PRN Reason: Hypoglycemia Protocol Heparin Sodium (Porcine) (Heparin) 5,000 units SC Q8 [facility] Last Admin: 05/03/17 13:11 Dose: Not Given Insulin Aspart (Novolog) 4 unit SC ACTID [facility] Last Admin: 05/03/17 17:49 Dose: 4 unit Insulin Glargine (Lantus) 6 unit SC HS [facility] Last Admin: 05/02/17 21:40 Dose: Not Given Insulin Human Regular (Novolin R) 0 unit SC ACHS [facility] PRN Reason: Protocol Last Admin: 05/03/17 17:49 Dose: Not Given Labetalol HCl (Normodyne) 300 mg PO BID [facility] Last Admin: 05/03/17 17:47 Dose: 300 mg Minoxidil (Loniten) 10 mg PO BID [facility] Last Admin: 05/03/17 17:47 Dose: 10 mg Pantoprazole Sodium (Protonix Ec Tab) 40 mg PO DAILY [facility] Last Admin: 05/03/17 10:16 Dose: 40 mg Pregabalin (Lyrica) 75 mg PO [facility] Sevelamer Carbonate (Renvela) 1,600 mg PO TIDCC [facility] Last Admin: 05/03/17 17:47 Dose: 1,600 mg - Labs Labs: 05/03/17 11:19 05/03/17 11:19 Attending/Attestation - Attestation I have personally seen and examined this patient.: Yes I have fully participated in the care of the patient.: Yes I have reviewed all pertinent clinical information, including history, physical exam and plan: Yes Notes (Text): 05/03/17 20:42 Patient was seen and examined shortly after resident. Exam, assessment and plan were thoroughly gone over with the resident. Assessments: 1). ESRD on HD via Right Arm AV Fistula U/S showed significant stenosis of Right Brachial Basilic Fistula Anastimosis Patient for Fistulogram with Dr. Finley 05/06/17 Sensipar Seveline 2). DM 1 Humalog AC Meals, Lantus HS 3). Hx Thrombocytopenia Resolved 4). HTN Labetolol, Minoxidil, Clonidine 5). Hx Chronic LBP Flexeril 6). Hx Paresthesias (Bilateral Hands) and Muscle Spasms of Neck, Arms, Hands Lyrica increased to 75 mg HS 7). Hx GERD Protonix 8). Hx Cataracts Rosendo Fofana D.O.
[2017-05-03] MEDS: Pantoprazole 40 mg EC Tab PO SCH (10:16)
[2017-05-03] MEDS: Labetalol Hydrochloride 300 mg Tab PO SCH ×2 (10:17→17:47)
[2017-05-03 11:29] LABS: BASO # 0.1 K/uL (0.0-0.2); BASO % 1.8 % (0.0-2.0); EOS # 0.3 K/uL (0.0-0.7); EOS % 4.9 % (0.0-4.0); HEMOGLOBIN 11.6 g/dL (11.0-16.0); LYMPH # 1.5 K/uL (1.0-4.3); LYMPH % 25.4 % (20.0-40.0); MEAN CELL VOLUME 89.4 fL (81.0-99.0); MEAN CORPUSCULAR HEMOGLOBIN 30.6 pg (27.0-31.0); MEAN CORPUSCULAR HGB CONC 34.2 g/dL (33.0-37.0); MEAN PLATELET VOLUME 10.1 fL (7.2-11.7); MONO # 0.6 K/uL (0.0-0.8); MONO % 10.7 % (0.0-10.0); NEUT # 3.4 K/uL (1.8-7.0); NEUT % 57.2 % (50.0-75.0); RBC 3.78 Mil/uL (3.80-5.20); RED CELL DISTRIBUTION WIDTH 13.8 % (11.5-14.5); WHITE BLOOD COUNT 5.9 K/uL (4.8-10.8)
[2017-05-03 11:51] LABS: ALB/GLOB RATIO 1.3 (1.0-2.1); ALBUMIN 4.1 g/dL (3.5-5.0); CALCIUM 7.3 mg/dl (8.6-10.4)
--- NOTE | 2017-05-03 15:16 | CP.PCM.PN ---
Subjective - Date & Time of Evaluation Date of Evaluation: 05/03/17 Time of Evaluation: 15:13 - Subjective Subjective: Less dyspneic, post dialysis 05/02 Feels better overall, had abbreviated treatment 05/02 No n, v, fever, chills, diarrhea, CPs Hyperkalemia corrected Was hypoglycemic 05/02- corrected Objective - Vital Signs/Intake and Output Vital Signs (last 24 hours): Temp Pulse Resp BP Pulse Ox 97.7 F 154 H 20 120/58 L 98 05/03/17 08:12 05/03/17 11:35 05/03/17 08:12 05/03/17 08:12 05/03/17 13:00 Intake and Output: 05/03/17 05/03/17 06:59 18:59 Intake Total 300 Balance 300 - Medications Medications: Current Medications Cinacalcet (Sensipar) 90 mg PO DAILY [facility] Last Admin: 05/03/17 10:16 Dose: 90 mg Clonidine HCl (Catapres) 0.2 mg PO BID [facility] Last Admin: 05/03/17 10:16 Dose: 0.2 mg Cyclobenzaprine HCl (Flexeril) 5 mg PO TID PRN PRN Reason: Muscle spasm Last Admin: 05/03/17 13:10 Dose: 5 mg Dextrose (Glutose 15) 0 gm PO .ONCE PRN; Protocol PRN Reason: Hypoglycemia Protocol Dextrose (Dextrose 50%) 0 ml IV .STAT PRN; Protocol PRN Reason: Hypoglycemia Protocol Last Admin: 05/02/17 16:01 Dose: 50 ml Glucagon (Glucagen Diagnostic Kit) 0 mg IM .STAT PRN; Protocol PRN Reason: Hypoglycemia Protocol Heparin Sodium (Porcine) (Heparin) 5,000 units SC Q8 [facility] Last Admin: 05/03/17 13:11 Dose: Not Given Insulin Aspart (Novolog) 4 unit SC ACTID [facility] Last Admin: 05/03/17 12:08 Dose: Not Given Insulin Glargine (Lantus) 6 unit SC HS [facility] Last Admin: 05/02/17 21:40 Dose: Not Given Insulin Human Regular (Novolin R) 0 unit SC ACHS [facility] PRN Reason: Protocol Last Admin: 05/03/17 12:08 Dose: Not Given Labetalol HCl (Normodyne) 300 mg PO BID [facility] Last Admin: 01/12/18 10:17 Dose: 300 mg Minoxidil (Loniten) 10 mg PO BID [facility] Last Admin: 05/03/17 10:17 Dose: 10 mg Pantoprazole Sodium (Protonix Ec Tab) 40 mg PO DAILY [facility] Last Admin: 05/03/17 10:16 Dose: 40 mg Pregabalin (Lyrica) 75 mg PO [facility] Sevelamer Carbonate (Renvela) 800 mg PO TIDCC [facility] Last Admin: 05/03/17 12:51 Dose: 800 mg - Labs Labs: 05/03/17 11:19 05/03/17 11:19 - Constitutional Appears: Non-toxic, No Acute Distress, Chronically Ill - Head Exam Head Exam: ATRAUMATIC, NORMAL INSPECTION - Eye Exam Eye Exam: EOMI, Normal appearance - Neck Exam Neck Exam: Normal Inspection. absent: Tenderness - Respiratory Exam Respiratory Exam: Clear to Ausculation Bilateral, NORMAL BREATHING PATTERN - Cardiovascular Exam Cardiovascular Exam: REGULAR RHYTHM, +S1 - GI/Abdominal Exam GI & Abdominal Exam: Soft. absent: Tenderness - Extremities Exam Extremities Exam: Normal Inspection. absent: Tenderness - Neurological Exam Neurological Exam: Awake, CN II-XII Intact - Skin Skin Exam: Dry, Warm Assessment and Plan (1) CHF (congestive heart failure) Status: Acute (2) Type 1 diabetes mellitus with diabetic nephropathy Status: Acute (3) ESRD (end stage renal disease) on dialysis Status: Acute (4) Hyperkalemia Status: Acute - Assessment and Plan (Free Text) Plan: Repeat dialysis in AM Low K diet Monitor BP
[2017-05-03] MEDS: (Lantus) Insulin Glargine, Recombinant SC SCH (21:48)
[2017-05-04] MEDS: (Novolin R) Insulin Human Regular 100 units/ml vial SC SCH ×4 (08:23→21:27)
[2017-05-04] MEDS: (Novolog) Insulin Aspart, Recombinant 100 u/ml 10 ml vial SC SCH ×3 (08:23→18:20)
[2017-05-04] MEDS: Pantoprazole 40 mg EC Tab PO SCH (10:23)
[2017-05-04] MEDS: Labetalol Hydrochloride 300 mg Tab PO SCH ×2 (10:23→18:26)
[2017-05-04 10:35] LABS: BASO # 0.1 K/uL (0.0-0.2); BASO % 2.2 % (0.0-2.0); EOS # 0.3 K/uL (0.0-0.7); EOS % 5.5 % (0.0-4.0); HEMOGLOBIN 10.8 g/dL (11.0-16.0); LYMPH % 37.4 % (20.0-40.0); MEAN CELL VOLUME 90.1 fL (81.0-99.0); MEAN CORPUSCULAR HEMOGLOBIN 30.4 pg (27.0-31.0); MEAN CORPUSCULAR HGB CONC 33.7 g/dL (33.0-37.0); MEAN PLATELET VOLUME 10.5 fL (7.2-11.7); MONO # 0.6 K/uL (0.0-0.8); MONO % 11.2 % (0.0-10.0); NEUT # 2.3 K/uL (1.8-7.0); NEUT % 43.7 % (50.0-75.0); RBC 3.56 Mil/uL (3.80-5.20); WHITE BLOOD COUNT 5.3 K/uL (4.8-10.8)
[2017-05-04 10:55] LABS: ALB/GLOB RATIO 1.2 (1.0-2.1); CALCIUM 7.1 mg/dl (8.6-10.4)
--- NOTE | 2017-05-04 10:56 | CP.PCM.PN ---
<Hemalatha Mcclellan DO - Last Filed: 05/04/17 15:16> Subjective - Date & Time of Evaluation Date of Evaluation: 05/04/17 Time of Evaluation: 10:55 - Subjective Subjective: PGY2 medicine progress note for Dr. Fofana's service Patient seen and examined. Patient eating breakfast and is tolerating diet well , denies nausea. Patient complains only of neck and shoulder pain. Patient due to have dialysis today. Objective - Vital Signs/Intake and Output Vital Signs (last 24 hours): Temp Pulse Resp BP Pulse Ox 98.2 F 76 20 101/53 L 95 05/04/17 07:59 05/04/17 07:59 05/04/17 07:59 05/04/17 07:59 05/04/17 07:59 - Medications Medications: Current Medications Cinacalcet (Sensipar) 90 mg PO DAILY [facility] Last Admin: 05/03/17 10:16 Dose: 90 mg Clonidine HCl (Catapres) 0.2 mg PO BID [facility] Last Admin: 05/03/17 17:47 Dose: 0.2 mg Cyclobenzaprine HCl (Flexeril) 5 mg PO [facility] Dextrose (Glutose 15) 0 gm PO .ONCE PRN; Protocol PRN Reason: Hypoglycemia Protocol Dextrose (Dextrose 50%) 0 ml IV .STAT PRN; Protocol PRN Reason: Hypoglycemia Protocol Last Admin: 05/02/17 16:01 Dose: 50 ml Glucagon (Glucagen Diagnostic Kit) 0 mg IM .STAT PRN; Protocol PRN Reason: Hypoglycemia Protocol Heparin Sodium (Porcine) (Heparin) 5,000 units SC Q8 [facility] Last Admin: 05/04/17 05:54 Dose: Not Given Insulin Aspart (Novolog) 4 unit SC ACTID [facility] Last Admin: 05/03/17 17:49 Dose: 4 unit Insulin Glargine (Lantus) 6 unit SC HS [facility] Last Admin: 05/03/17 21:48 Dose: Not Given Insulin Human Regular (Novolin R) 0 unit SC ACHS [facility] PRN Reason: Protocol Last Admin: 05/03/17 21:48 Dose: Not Given Labetalol HCl (Normodyne) 300 mg PO BID [facility] Last Admin: 05/03/17 17:47 Dose: 300 mg Minoxidil (Loniten) 10 mg PO BID [facility] Last Admin: 05/03/17 17:47 Dose: 10 mg Pantoprazole Sodium (Protonix Ec Tab) 40 mg PO DAILY [facility] Last Admin: 05/03/17 10:16 Dose: 40 mg Pregabalin (Lyrica) 75 mg PO HS [facility] Last Admin: 05/03/17 21:46 Dose: 75 mg Sevelamer Carbonate (Renvela) 1,600 mg PO TIDCC [facility] Last Admin: 05/03/17 17:47 Dose: 1,600 mg - Labs Labs: 05/04/17 10:26 05/03/17 11:19 - Constitutional Appears: No Acute Distress - Head Exam Head Exam: ATRAUMATIC, NORMOCEPHALIC - Eye Exam Eye Exam: EOMI - ENT Exam ENT Exam: Mucous Membranes Moist - Respiratory Exam Respiratory Exam: Clear to Ausculation Bilateral, NORMAL BREATHING PATTERN - Cardiovascular Exam Cardiovascular Exam: +S1, +S2, Murmur - GI/Abdominal Exam GI & Abdominal Exam: Soft, Normal Bowel Sounds. absent: Tenderness - Extremities Exam Additional comments: right arm AVF - Neurological Exam Neurological Exam: Alert, Awake - Skin Skin Exam: Dry, Warm Assessment and Plan - Assessment and Plan (Free Text) Assessment: ESRD on HD via Right Arm AV Fistula Vascular Surgery consult, Dr Finley * Fistulagram scheduled for 05/06/17 in AM - will be NPO after midnight the night before Nephrology consult, Dr Velazquez * HD TTS * today 05/04/17 patient had cramping during dialysis and goal reduced from 3L to 2.5L, patient given ativan 1mg IVP during dialysis Hemodialysis Access Duplex US (05/02/17): hemodynamically significant stenosis in the right brachial - basilic fistula anastomosis and distal upper arm basilic with stent Sensipar 90mg Daily Sevelimr 800mg TID DM I Humalog 4 Units AC Lantus 6 Units HS Human RISS ACHS Hypoglyemia Protocol HTN Labetolol 300 PO twice daily Minoxidil 10mg PO BID Clonidine 0.2mg PO BID Hx of Parasthesia/Neuropathic pain (Hands, Arm, Neck) Lyrica 75mg PO HS Cyclobenzaprine 5mg HS prn Hx of GERD Protonix 40mg daily Proph Protonix 40mg PO QD Heparin 5000u SC Q8H Patient seen and discussed with Dr. Fofana <Rosendo Fofana - Last Filed: 05/04/17 17:52> Objective - Vital Signs/Intake and Output Vital Signs (last 24 hours): Temp Pulse Resp BP Pulse Ox 97.8 F 78 20 143/66 98 05/04/17 16:08 05/04/17 16:56 05/04/17 16:08 05/04/17 16:08 05/04/17 16:08 Intake and Output: 05/04/17 05/04/17 06:59 18:59 Intake Total 280 Balance 280 - Medications Medications: Current Medications Cinacalcet (Sensipar) 90 mg PO DAILY [facility] Last Admin: 05/04/17 10:24 Dose: Not Given Clonidine HCl (Catapres) 0.2 mg PO BID [facility] Last Admin: 05/04/17 12:08 Dose: 0.2 mg Cyclobenzaprine HCl (Flexeril) 5 mg PO [facility] Dextrose (Glutose 15) 0 gm PO .ONCE PRN; Protocol PRN Reason: Hypoglycemia Protocol Dextrose (Dextrose 50%) 0 ml IV .STAT PRN; Protocol PRN Reason: Hypoglycemia Protocol Last Admin: 05/02/17 16:01 Dose: 50 ml Glucagon (Glucagen Diagnostic Kit) 0 mg IM .STAT PRN; Protocol PRN Reason: Hypoglycemia Protocol Heparin Sodium (Porcine) (Heparin) 5,000 units SC Q8 [facility] Last Admin: 05/04/17 14:48 Dose: Not Given Insulin Aspart (Novolog) 4 unit SC ACTID [facility] Last Admin: 05/04/17 11:48 Dose: Not Given Insulin Glargine (Lantus) 6 unit SC HS [facility] Last Admin: 05/03/17 21:48 Dose: Not Given Insulin Human Regular (Novolin R) 0 unit SC ACHS [facility] PRN Reason: Protocol Last Admin: 05/04/17 11:48 Dose: Not Given Labetalol HCl (Normodyne) 300 mg PO BID [facility] Last Admin: 05/04/17 10:23 Dose: Not Given Minoxidil (Loniten) 10 mg PO BID [facility] Last Admin: 05/04/17 10:22 Dose: Not Given Pantoprazole Sodium (Protonix Ec Tab) 40 mg PO DAILY [facility] Last Admin: 05/04/17 10:23 Dose: Not Given Pregabalin (Lyrica) 75 mg PO HS [facility] Last Admin: 05/03/17 21:46 Dose: 75 mg Sevelamer Carbonate (Renvela) 1,600 mg PO TIDCC [facility] Last Admin: 05/04/17 12:54 Dose: Not Given - Labs Labs: 05/04/17 10:26 05/04/17 10:26 Attending/Attestation - Attestation I have personally seen and examined this patient.: Yes I have fully participated in the care of the patient.: Yes I have reviewed all pertinent clinical information, including history, physical exam and plan: Yes Notes (Text): 05/04/17 17:51 Patient was seen and examined while recieving HD on 3T. Exam, assessment and plan were thoroughly gone over with the resident. Assessments: 1). ESRD on HD via Right Arm AV Fistula U/S showed significant stenosis of Right Brachial Basilic Fistula Anastimosis Patient for Fistulogram with Dr. Finley 05/06/17 and will be NPO after midnight on 05/05/17 Sensipar Seveline 2). DM 1 Humalog AC Meals, Lantus HS 3). Hx Thrombocytopenia Resolved 4). HTN Labetolol, Minoxidil, Clonidine 5). Hx Chronic LBP Flexeril 6). Hx Paresthesias (Bilateral Hands) and Muscle Spasms of Neck, Arms, Hands Lyrica increased to 75 mg HS 7). Hx GERD Protonix 8). Hx Cataracts Rosendo Fofana D.O.
--- NOTE | 2017-05-04 11:20 | CP.PCM.PN ---
Subjective - Date & Time of Evaluation Date of Evaluation: 05/04/17 Time of Evaluation: 11:20 - Subjective Subjective: for fistulogram saturday Objective - Vital Signs/Intake and Output Vital Signs (last 24 hours): Temp Pulse Resp BP Pulse Ox 98.3 F 80 18 98/57 L 100 05/04/17 10:05 05/04/17 10:05 05/04/17 10:05 05/04/17 11:05 05/04/17 10:05 - Medications Medications: Current Medications Cinacalcet (Sensipar) 90 mg PO DAILY [facility] Last Admin: 05/03/17 10:16 Dose: 90 mg Clonidine HCl (Catapres) 0.2 mg PO BID [facility] Last Admin: 05/03/17 17:47 Dose: 0.2 mg Cyclobenzaprine HCl (Flexeril) 5 mg PO [facility] Dextrose (Glutose 15) 0 gm PO .ONCE PRN; Protocol PRN Reason: Hypoglycemia Protocol Dextrose (Dextrose 50%) 0 ml IV .STAT PRN; Protocol PRN Reason: Hypoglycemia Protocol Last Admin: 05/02/17 16:01 Dose: 50 ml Glucagon (Glucagen Diagnostic Kit) 0 mg IM .STAT PRN; Protocol PRN Reason: Hypoglycemia Protocol Heparin Sodium (Porcine) (Heparin) 5,000 units SC Q8 [facility] Last Admin: 05/04/17 05:54 Dose: Not Given Insulin Aspart (Novolog) 4 unit SC ACTID [facility] Last Admin: 05/03/17 17:49 Dose: 4 unit Insulin Glargine (Lantus) 6 unit SC HS [facility] Last Admin: 05/03/17 21:48 Dose: Not Given Insulin Human Regular (Novolin R) 0 unit SC ACHS [facility] PRN Reason: Protocol Last Admin: 05/03/17 21:48 Dose: Not Given Labetalol HCl (Normodyne) 300 mg PO BID [facility] Last Admin: 05/03/17 17:47 Dose: 300 mg Minoxidil (Loniten) 10 mg PO BID [facility] Last Admin: 05/03/17 17:47 Dose: 10 mg Pantoprazole Sodium (Protonix Ec Tab) 40 mg PO DAILY [facility] Last Admin: 05/03/17 10:16 Dose: 40 mg Pregabalin (Lyrica) 75 mg PO HS [facility] Last Admin: 05/03/17 21:46 Dose: 75 mg Sevelamer Carbonate (Renvela) 1,600 mg PO TIDCC [facility] Last Admin: 05/03/17 17:47 Dose: 1,600 mg - Labs Labs: 05/04/17 10:26 05/04/17 10:26
--- NOTE | 2017-05-04 12:00 | CP.PCM.PN ---
Subjective - Date & Time of Evaluation Date of Evaluation: 05/04/17 Time of Evaluation: 11:45 - Subjective Subjective: on HD cramping, goal reduced no other complaints Objective - Vital Signs/Intake and Output Vital Signs (last 24 hours): Temp Pulse Resp BP Pulse Ox 98.3 F 80 18 136/79 100 05/04/17 10:05 05/04/17 10:05 05/04/17 10:05 05/04/17 11:35 05/04/17 10:05 - Medications Medications: Current Medications Cinacalcet (Sensipar) 90 mg PO DAILY [facility] Last Admin: 05/04/17 10:24 Dose: Not Given Clonidine HCl (Catapres) 0.2 mg PO BID [facility] Last Admin: 05/04/17 10:22 Dose: Not Given Cyclobenzaprine HCl (Flexeril) 5 mg PO [facility] Dextrose (Glutose 15) 0 gm PO .ONCE PRN; Protocol PRN Reason: Hypoglycemia Protocol Dextrose (Dextrose 50%) 0 ml IV .STAT PRN; Protocol PRN Reason: Hypoglycemia Protocol Last Admin: 05/02/17 16:01 Dose: 50 ml Glucagon (Glucagen Diagnostic Kit) 0 mg IM .STAT PRN; Protocol PRN Reason: Hypoglycemia Protocol Heparin Sodium (Porcine) (Heparin) 5,000 units SC Q8 [facility] Last Admin: 05/04/17 05:54 Dose: Not Given Insulin Aspart (Novolog) 4 unit SC ACTID [facility] Last Admin: 05/04/17 08:23 Dose: Not Given Insulin Glargine (Lantus) 6 unit SC HS [facility] Last Admin: 05/03/17 21:48 Dose: Not Given Insulin Human Regular (Novolin R) 0 unit SC ACHS [facility] PRN Reason: Protocol Last Admin: 05/04/17 08:23 Dose: Not Given Labetalol HCl (Normodyne) 300 mg PO BID [facility] Last Admin: 05/04/17 10:23 Dose: Not Given Lorazepam (Ativan) 1 mg IVP ONCE ONE Stop: 05/04/17 11:47 Minoxidil (Loniten) 10 mg PO BID [facility] Last Admin: 05/04/17 10:22 Dose: Not Given Pantoprazole Sodium (Protonix Ec Tab) 40 mg PO DAILY [facility] Last Admin: 05/04/17 10:23 Dose: Not Given Pregabalin (Lyrica) 75 mg PO HS [facility] Last Admin: 05/03/17 21:46 Dose: 75 mg Sevelamer Carbonate (Renvela) 1,600 mg PO TIDCC [facility] Last Admin: 05/04/17 09:24 Dose: Not Given - Labs Labs: 05/04/17 10:26 05/04/17 10:26 - Constitutional Appears: Non-toxic, Chronically Ill - Head Exam Head Exam: ATRAUMATIC - Eye Exam Eye Exam: EOMI, Normal appearance - ENT Exam ENT Exam: Mucous Membranes Moist - Neck Exam Neck Exam: Full ROM. absent: Lymphadenopathy - Respiratory Exam Respiratory Exam: Clear to Ausculation Bilateral, NORMAL BREATHING PATTERN - Cardiovascular Exam Cardiovascular Exam: REGULAR RHYTHM. absent: Rubs - GI/Abdominal Exam GI & Abdominal Exam: Soft, Normal Bowel Sounds. absent: Tenderness - Neurological Exam Neurological Exam: Alert Assessment and Plan - Assessment and Plan (Free Text) Assessment: noncompliant with HD advised compliance continue same
[2017-05-04] MEDS: (Lantus) Insulin Glargine, Recombinant SC SCH (21:32)
[2017-05-05] MEDS: (Novolin R) Insulin Human Regular 100 units/ml vial SC SCH ×3 (07:42→16:37)
[2017-05-05] MEDS: (Novolog) Insulin Aspart, Recombinant 100 u/ml 10 ml vial SC SCH ×3 (07:43→16:35)
--- NOTE | 2017-05-05 08:40 | CP.PCM.PN ---
Subjective - Date & Time of Evaluation Date of Evaluation: 05/05/17 Time of Evaluation: 06:55 - Subjective Subjective: Vascular Surgery Dr. Finley Pt S&E @bedside. Pt had dialysis yesterday. Per pt, fistula was difficult to canulate but once accessed, dialysis occurred w/o difficulty. NAEO. pt c/o B/L hand pain/numbness. pain sis unchanged, constant and unrelated to dialysis. Pt tolerating diet. Objective - Vital Signs/Intake and Output Vital Signs (last 24 hours): Temp Pulse Resp BP Pulse Ox 97.7 F 82 20 117/57 L 99 05/05/17 07:35 05/05/17 08:26 05/05/17 07:35 05/05/17 07:35 05/05/17 07:35 Intake and Output: 05/05/17 05/05/17 06:59 18:59 Intake Total 600 Output Total 1 Balance 599 - Medications Medications: Current Medications Cinacalcet (Sensipar) 90 mg PO DAILY [facility]S [facility] Last Admin: 05/04/17 10:24 Dose: Not Given Clonidine HCl (Catapres) 0.2 mg PO BID [facility] 234 BEDS AT [facility] Last Admin: 05/04/17 18:26 Dose: 0.2 mg Cyclobenzaprine HCl (Flexeril) 5 mg PO [facility] Last Admin: 05/04/17 21:32 Dose: 5 mg Dextrose (Glutose 15) 0 gm PO .ONCE PRN; Protocol PRN Reason: Hypoglycemia Protocol Dextrose (Dextrose 50%) 0 ml IV .STAT PRN; Protocol PRN Reason: Hypoglycemia Protocol Last Admin: 05/02/17 16:01 Dose: 50 ml Glucagon (Glucagen Diagnostic Kit) 0 mg IM .STAT PRN; Protocol PRN Reason: Hypoglycemia Protocol Insulin Aspart (Novolog) 4 unit SC ACTID [facility] 234 BEDS AT [facility] Last Admin: 05/05/17 07:43 Dose: Not Given Insulin Glargine (Lantus) 6 unit SC HS [facility]S [facility]CLUDE 234 BEDS AT [facility] Last Admin: 05/04/17 21:32 Dose: 6 units Insulin Human Regular (Novolin R) 0 unit SC ACHS [facility]S [facility]CLUDE 234 BEDS AT [facility] PRN Reason: Protocol Last Admin: 05/05/17 07:42 Dose: Not Given Labetalol HCl (Normodyne) 300 mg PO BID [facility] 234 BEDS AT [facility] Last Admin: 05/04/17 18:26 Dose: 300 mg Minoxidil (Loniten) 10 mg PO BID [facility] 234 BEDS AT [facility] Last Admin: 05/04/17 18:26 Dose: 10 mg Pantoprazole Sodium (Protonix Ec Tab) 40 mg PO DAILY [facility] 234 BEDS AT [facility] Last Admin: 05/04/17 10:23 Dose: Not Given Pregabalin (Lyrica) 75 mg PO HS [facility] 234 BEDS AT [facility] Last Admin: 05/04/17 21:32 Dose: 75 mg Sevelamer Carbonate (Renvela) 1,600 mg PO TIDCC COUNTS INCLUDE 234 BEDS AT [facility] Last Admin: 05/05/17 07:56 Dose: 1,600 mg - Labs Labs: 05/04/17 10:26 05/04/17 10:26 - Constitutional Appears: Non-toxic, No Acute Distress - Head Exam Head Exam: NORMAL INSPECTION - Eye Exam Eye Exam: Normal appearance - ENT Exam ENT Exam: Mucous Membranes Moist - Respiratory Exam Respiratory Exam: NORMAL BREATHING PATTERN. absent: Accessory Muscle Use, Respiratory Distress - Extremities Exam Additional comments: multiple scars from previous AVF R AVF w/ palpable thrill - Neurological Exam Neurological Exam: Alert, Awake, Oriented x3 - Psychiatric Exam Psychiatric exam: Normal Affect, Normal Mood - Skin Skin Exam: Dry, Intact, Warm Assessment and Plan - Assessment and Plan (Free Text) Assessment: 41 y/o F w/ difficult AVF access - NPO@[place] - pt for fistulogram Saturday to relieve stenosis - hold dialysis till after Fistulogram - cont medical management as per primary Pt discussed w/ Dr. Tushar Noel DO PGY2
[2017-05-05 08:43] LABS: BASO % 0.8 % (0.0-2.0); EOS # 0.3 K/uL (0.0-0.7); EOS % 5.6 % (0.0-4.0); HEMOGLOBIN 11.3 g/dL (11.0-16.0); LYMPH # 2.1 K/uL (1.0-4.3); MEAN CELL VOLUME 89.5 fL (81.0-99.0); MEAN CORPUSCULAR HGB CONC 33.5 g/dL (33.0-37.0); MEAN PLATELET VOLUME 10.7 fL (7.2-11.7); MONO # 0.6 K/uL (0.0-0.8); MONO % 10.8 % (0.0-10.0); NEUT # 2.1 K/uL (1.8-7.0); NEUT % 41.8 % (50.0-75.0); NRBC % 0.1 % (0.0-2.0); RBC 3.77 Mil/uL (3.80-5.20); RED CELL DISTRIBUTION WIDTH 13.9 % (11.5-14.5); WHITE BLOOD COUNT 5.1 K/uL (4.8-10.8)
[2017-05-05] MEDS ORDERED: Bisacodyl 5mg EC Tab PO PRN (08:50)
[2017-05-05 09:11] LABS: ALB/GLOB RATIO 1.2 (1.0-2.1); ALBUMIN 4.1 g/dL (3.5-5.0); CALCIUM 7.5 mg/dl (8.6-10.4)
[2017-05-05] MEDS: Pantoprazole 40 mg EC Tab PO SCH (09:36)
[2017-05-05] MEDS: Labetalol Hydrochloride 300 mg Tab PO SCH ×2 (09:38→17:35)
--- NOTE | 2017-05-05 11:02 | CP.PCM.PN ---
<Eleuterio VALDEZHemalatha Shade - Last Filed: 05/05/17 14:39> Subjective - Date & Time of Evaluation Date of Evaluation: 05/05/17 Time of Evaluation: 10:59 - Subjective Subjective: PGY2 medicine progress note for Dr. Fofana's service: Patient seen and examined. Patient states she feels okay except she is having some hand numbness. She states she is having a lot of muscle spasm in her upper shoulders and neck. Patient also complains of hard stool. Patient states abdominal cramps she experienced during dialysis yesterday have resolved. Patient states she has facial puffiness due to not completing full dialysis session yesterday due to cramping. Objective - Vital Signs/Intake and Output Vital Signs (last 24 hours): Temp Pulse Resp BP Pulse Ox 97.7 F 82 20 117/57 L 99 05/05/17 07:35 05/05/17 08:52 05/05/17 07:35 05/05/17 07:35 05/05/17 07:35 Intake and Output: 05/05/17 05/05/17 06:59 18:59 Intake Total 600 Output Total 1 Balance 599 - Medications Medications: Current Medications Bisacodyl (Dulcolax) 5 mg PO DAILY PRN PRN Reason: Constipation Last Admin: 05/05/17 09:36 Dose: 5 mg Cinacalcet (Sensipar) 90 mg PO DAILY [facility] Last Admin: 05/05/17 09:38 Dose: 90 mg Clonidine HCl (Catapres) 0.2 mg PO BID [facility] Last Admin: 05/05/17 09:37 Dose: 0.2 mg Cyclobenzaprine HCl (Flexeril) 5 mg PO HS [facility] Last Admin: 05/04/17 21:32 Dose: 5 mg Cyclobenzaprine HCl (Flexeril) 5 mg PO BID PRN PRN Reason: Muscle spasm Last Admin: 05/05/17 09:37 Dose: 5 mg Dextrose (Glutose 15) 0 gm PO .ONCE PRN; Protocol PRN Reason: Hypoglycemia Protocol Dextrose (Dextrose 50%) 0 ml IV .STAT PRN; Protocol PRN Reason: Hypoglycemia Protocol Last Admin: 05/02/17 16:01 Dose: 50 ml Glucagon (Glucagen Diagnostic Kit) 0 mg IM .STAT PRN; Protocol PRN Reason: Hypoglycemia Protocol Insulin Aspart (Novolog) 4 unit SC ACTID [facility] Last Admin: 05/05/17 07:43 Dose: Not Given Insulin Glargine (Lantus) 6 unit SC [facility] Last Admin: 05/04/17 21:32 Dose: 6 units Insulin Human Regular (Novolin R) 0 unit SC ACHS [facility] PRN Reason: Protocol Last Admin: 05/05/17 07:42 Dose: Not Given Labetalol HCl (Normodyne) 300 mg PO BID [facility] Last Admin: 05/05/17 09:38 Dose: 300 mg Minoxidil (Loniten) 10 mg PO BID [facility] Last Admin: 05/05/17 09:38 Dose: 10 mg Pantoprazole Sodium (Protonix Ec Tab) 40 mg PO DAILY [facility] Last Admin: 05/05/17 09:36 Dose: 40 mg Pregabalin (Lyrica) 75 mg PO HS [facility] Last Admin: 05/04/17 21:32 Dose: 75 mg Sevelamer Carbonate (Renvela) 1,600 mg PO TIDCC [facility] Last Admin: 05/05/17 07:56 Dose: 1,600 mg - Labs Labs: 05/05/17 08:22 05/05/17 08:22 - Constitutional Appears: No Acute Distress - Head Exam Head Exam: ATRAUMATIC, NORMOCEPHALIC - Eye Exam Eye Exam: EOMI Additional comments: mild periorbital and facial swelling - ENT Exam ENT Exam: Mucous Membranes Moist - Respiratory Exam Respiratory Exam: Clear to Ausculation Bilateral, NORMAL BREATHING PATTERN - Cardiovascular Exam Cardiovascular Exam: +S1, +S2, Murmur - GI/Abdominal Exam GI & Abdominal Exam: Soft, Normal Bowel Sounds. absent: Tenderness - Extremities Exam Extremities Exam: Normal Inspection - Neurological Exam Neurological Exam: Alert, Awake - Psychiatric Exam Psychiatric exam: Normal Affect - Skin Skin Exam: Warm Assessment and Plan - Assessment and Plan (Free Text) Assessment: ESRD on HD via Right Arm AV Fistula Vascular Surgery consult, Dr Finley * Fistulagram scheduled for 05/06/17 in AM - will be NPO after midnight the night before Nephrology consult, Dr Velazquez * HD TTS Hemodialysis Access Duplex US (05/02/17): hemodynamically significant stenosis in the right brachial - basilic fistula anastomosis and distal upper arm basilic with stent Sensipar 90mg Daily Sevelimr 800mg TID DM I Humalog 4 Units AC Lantus 6 Units HS Human RISS ACHS Hypoglyemia Protocol HTN Labetolol 300 PO twice daily Minoxidil 10mg PO BID Clonidine 0.2mg PO BID Hx of Parasthesia/Neuropathic pain (Hands, Arm, Neck) Lyrica 75mg PO HS Cyclobenzaprine 5mg HS prn and 2.5mg PO once daily as needed Hx of GERD Protonix 40mg daily Proph Protonix 40mg PO QD colace 100mg PO daily Heparin 5000u SC Q8H held for procedure tomorrow <Rosendo Fofana - Last Filed: 05/05/17 20:54> Objective - Vital Signs/Intake and Output Vital Signs (last 24 hours): Temp Pulse Resp BP Pulse Ox 98.1 F 81 20 135/68 96 05/05/17 16:00 05/05/17 16:00 05/05/17 16:00 05/05/17 16:00 05/05/17 16:00 Intake and Output: 05/05/17 05/06/17 18:59 06:59 Intake Total 800 Balance 800 - Medications Medications: Current Medications Cinacalcet (Sensipar) 90 mg PO DAILY [facility] Last Admin: 05/05/17 09:38 Dose: 90 mg Clonidine HCl (Catapres) 0.2 mg PO BID [facility] Last Admin: 05/05/17 17:35 Dose: 0.2 mg Cyclobenzaprine HCl (Flexeril) 5 mg PO HS [facility] Last Admin: 05/04/17 21:32 Dose: 5 mg Dextrose (Glutose 15) 0 gm PO .ONCE PRN; Protocol PRN Reason: Hypoglycemia Protocol Dextrose (Dextrose 50%) 0 ml IV .STAT PRN; Protocol PRN Reason: Hypoglycemia Protocol Last Admin: 05/02/17 16:01 Dose: 50 ml Docusate Sodium (Colace) 100 mg PO DAILY [facility] Last Admin: 05/05/17 12:34 Dose: 100 mg Glucagon (Glucagen Diagnostic Kit) 0 mg IM .STAT PRN; Protocol PRN Reason: Hypoglycemia Protocol Insulin Aspart (Novolog) 4 unit SC ACTID [facility] Last Admin: 05/05/17 16:35 Dose: 2 unit Insulin Glargine (Lantus) 6 unit SC HS [facility] Last Admin: 05/04/17 21:32 Dose: 6 units Insulin Human Regular (Novolin R) 0 unit SC ACHS [facility] PRN Reason: Protocol Last Admin: 05/05/17 16:37 Dose: Not Given Labetalol HCl (Normodyne) 300 mg PO BID [facility] Last Admin: 05/05/17 17:35 Dose: 300 mg Minoxidil (Loniten) 10 mg PO BID [facility] Last Admin: 05/05/17 17:35 Dose: 10 mg Pantoprazole Sodium (Protonix Ec Tab) 40 mg PO DAILY [facility] Last Admin: 05/05/17 09:36 Dose: 40 mg Pregabalin (Lyrica) 75 mg PO HS [facility] Last Admin: 05/04/17 21:32 Dose: 75 mg Sevelamer Carbonate (Renvela) 1,600 mg PO TIDCC [facility] Last Admin: 05/05/17 17:35 Dose: 1,600 mg - Labs Labs: 05/05/17 08:22 05/05/17 08:22 Attending/Attestation - Attestation I have personally seen and examined this patient.: Yes I have fully participated in the care of the patient.: Yes I have reviewed all pertinent clinical information, including history, physical exam and plan: Yes Notes (Text): 05/05/17 20:53 Patient was seen and examined at 12:00 PM 05/05/17 in [id number] Exam, assessment and plan were thoroughly gone over with the resident. Assessments: 1). ESRD on HD via Right Arm AV Fistula U/S showed significant stenosis of Right Brachial Basilic Fistula Anastimosis Patient for Fistulogram with Dr. Finley 05/06/17 and will be NPO after midnight on 05/05/17 Sensipar Seveline 2). DM 1 Humalog AC Meals, Lantus HS 3). Hx Thrombocytopenia Resolved 4). HTN Labetolol, Minoxidil, Clonidine 5). Hx Chronic LBP Flexeril 6). Hx Paresthesias (Bilateral Hands) and Muscle Spasms of Neck, Arms, Hands Lyrica 75 mg HS Flexeril 5 mg PO HS and 2.5 mg PO during the day PRN 7). Hx GERD Protonix 8). Hx Cataracts Rosendo Fofana D.O.
[2017-05-05] MEDS: (Lantus) Insulin Glargine, Recombinant SC SCH ×2 (21:34→21:36)
[2017-05-06] MEDS: (Novolin R) Insulin Human Regular 100 units/ml vial SC SCH ×4 (08:52→21:57)
[2017-05-06] MEDS: (Novolog) Insulin Aspart, Recombinant 100 u/ml 10 ml vial SC SCH ×3 (08:53→16:30)
[2017-05-06] MEDS: Pantoprazole 40 mg EC Tab PO SCH (12:07)
[2017-05-06] MEDS: Labetalol Hydrochloride 300 mg Tab PO SCH ×2 (12:07→18:00)
--- NOTE | 2017-05-06 12:19 | CP.PCM.PN ---
Subjective - Date & Time of Evaluation Date of Evaluation: 05/06/17 Time of Evaluation: 12:16 - Subjective Subjective: For fistulagram today Recent dialysis 05/04 aborted early due to cramps Now with increased swelling, more RILEY Objective - Vital Signs/Intake and Output Vital Signs (last 24 hours): Temp Pulse Resp BP Pulse Ox 98.4 F 85 20 164/64 H 99 05/06/17 08:22 05/06/17 08:22 05/06/17 08:22 05/06/17 08:22 05/06/17 08:22 Intake and Output: 05/06/17 05/06/17 06:59 18:59 Intake Total 300 Balance 300 - Medications Medications: Current Medications Cinacalcet (Sensipar) 90 mg PO DAILY [facility] Last Admin: 05/06/17 12:08 Dose: Not Given Clonidine HCl (Catapres) 0.2 mg PO BID [facility] Last Admin: 05/06/17 12:06 Dose: Not Given Cyclobenzaprine HCl (Flexeril) 5 mg PO [facility] Last Admin: 05/05/17 21:34 Dose: 5 mg Dextrose (Glutose 15) 0 gm PO .ONCE PRN; Protocol PRN Reason: Hypoglycemia Protocol Dextrose (Dextrose 50%) 0 ml IV .STAT PRN; Protocol PRN Reason: Hypoglycemia Protocol Last Admin: 05/02/17 16:01 Dose: 50 ml Docusate Sodium (Colace) 100 mg PO DAILY [facility] Last Admin: 05/06/17 12:06 Dose: Not Given Glucagon (Glucagen Diagnostic Kit) 0 mg IM .STAT PRN; Protocol PRN Reason: Hypoglycemia Protocol Insulin Aspart (Novolog) 4 unit SC ACTID [facility] Last Admin: 05/06/17 12:07 Dose: Not Given Insulin Glargine (Lantus) 6 unit SC HS [facility] Last Admin: 05/05/17 21:36 Dose: Not Given Insulin Human Regular (Novolin R) 0 unit SC ACHS [facility] PRN Reason: Protocol Last Admin: 05/06/17 12:07 Dose: Not Given Labetalol HCl (Normodyne) 300 mg PO BID [facility] Last Admin: 05/06/17 12:07 Dose: Not Given Minoxidil (Loniten) 10 mg PO BID [facility] Last Admin: 05/06/17 12:06 Dose: Not Given Pantoprazole Sodium (Protonix Ec Tab) 40 mg PO DAILY [facility] Last Admin: 05/06/17 12:07 Dose: Not Given Pregabalin (Lyrica) 75 mg PO HS [facility] Last Admin: 05/05/17 21:33 Dose: 75 mg Sevelamer Carbonate (Renvela) 1,600 mg PO TIDCC [facility] Last Admin: 05/06/17 12:07 Dose: Not Given - Labs Labs: 05/05/17 08:22 05/05/17 08:22 - Constitutional Appears: In Acute Distress, Chronically Ill - Head Exam Head Exam: ATRAUMATIC, NORMAL INSPECTION - Eye Exam Eye Exam: EOMI, Normal appearance - Neck Exam Neck Exam: Normal Inspection. absent: Tenderness - Respiratory Exam Respiratory Exam: Clear to Ausculation Bilateral, NORMAL BREATHING PATTERN - Cardiovascular Exam Cardiovascular Exam: REGULAR RHYTHM, +S1 - GI/Abdominal Exam GI & Abdominal Exam: Soft. absent: Tenderness - Extremities Exam Extremities Exam: Normal Inspection. absent: Tenderness - Neurological Exam Neurological Exam: Alert, CN II-XII Intact - Skin Skin Exam: Dry, Warm Assessment and Plan (1) CHF (congestive heart failure) Status: Acute (2) Type 1 diabetes mellitus with diabetic nephropathy Status: Acute (3) ESRD (end stage renal disease) on dialysis Status: Acute (4) Hyperkalemia Status: Acute - Assessment and Plan (Free Text) Plan: Fistulagram now Dialysis later for adequate UF Then MWF dialysis
[2017-05-06 13:01] LABS: PROTHROMBIN TIME 11.2 SECONDS (9.7-12.2)
--- NOTE | 2017-05-06 13:06 | CP.PCM.PN ---
Subjective - Date & Time of Evaluation Date of Evaluation: 05/06/17 Time of Evaluation: 08:02 - Subjective Subjective: Medicine Progress Note for Dr. Campos's Service, Cristian Lara PGY1 Value Analyst Patient seen and examined at bedside. Per nursing no acute events occurred overnight. The patient is was tolerating diet prior to being placed on NPO. The patient reports normal urinary and bowel function. The patient reports muscular pain in the shoulders bilaterally. The patient denies any chest pain, shortness of breath, nausea, vomiting, fevers, chills, changes in vision, abdominal pain, dizziness, or any other complaints. Objective - Vital Signs/Intake and Output Vital Signs (last 24 hours): Temp Pulse Resp BP Pulse Ox 98.4 F 85 20 164/64 H 99 05/06/17 08:22 05/06/17 08:22 05/06/17 08:22 05/06/17 08:22 05/06/17 08:22 Intake and Output: 05/06/17 05/06/17 06:59 18:59 Intake Total 300 Balance 300 - Medications Medications: Current Medications Cinacalcet (Sensipar) 90 mg PO DAILY [facility] Last Admin: 05/06/17 12:08 Dose: Not Given Clonidine HCl (Catapres) 0.2 mg PO BID [facility] Last Admin: 05/06/17 12:06 Dose: Not Given Cyclobenzaprine HCl (Flexeril) 5 mg PO [facility] Last Admin: 05/05/17 21:34 Dose: 5 mg Dextrose (Glutose 15) 0 gm PO .ONCE PRN; Protocol PRN Reason: Hypoglycemia Protocol Dextrose (Dextrose 50%) 0 ml IV .STAT PRN; Protocol PRN Reason: Hypoglycemia Protocol Last Admin: 05/02/17 16:01 Dose: 50 ml Docusate Sodium (Colace) 100 mg PO DAILY [facility] Last Admin: 05/06/17 12:06 Dose: Not Given Glucagon (Glucagen Diagnostic Kit) 0 mg IM .STAT PRN; Protocol PRN Reason: Hypoglycemia Protocol Insulin Aspart (Novolog) 4 unit SC ACTID [facility] Last Admin: 05/06/17 12:07 Dose: Not Given Insulin Glargine (Lantus) 6 unit SC HS [facility] Last Admin: 05/05/17 21:36 Dose: Not Given Insulin Human Regular (Novolin R) 0 unit SC ACHS [facility] PRN Reason: Protocol Last Admin: 05/06/17 12:07 Dose: Not Given Labetalol HCl (Normodyne) 300 mg PO BID [facility] Last Admin: 05/06/17 12:07 Dose: Not Given Minoxidil (Loniten) 10 mg PO BID [facility] Last Admin: 05/06/17 12:06 Dose: Not Given Pantoprazole Sodium (Protonix Ec Tab) 40 mg PO DAILY [facility] Last Admin: 05/06/17 12:07 Dose: Not Given Pregabalin (Lyrica) 75 mg PO HS [facility] Last Admin: 05/05/17 21:33 Dose: 75 mg Sevelamer Carbonate (Renvela) 1,600 mg PO TIDCC [facility] Last Admin: 05/06/17 12:07 Dose: Not Given - Labs Labs: 05/05/17 08:22 05/05/17 08:22 PT 11.2 SECONDS (9.7-12.2) 05/06/17 12:49 INR 1.0 05/06/17 12:49 APTT 32 SECONDS (21-34) 05/06/17 12:49 - Head Exam Head Exam: ATRAUMATIC, NORMAL INSPECTION, NORMOCEPHALIC - Eye Exam Eye Exam: EOMI, Normal appearance, PERRL. absent: Periorbital tenderness Pupil Exam: NORMAL ACCOMODATION - ENT Exam ENT Exam: Mucous Membranes Moist, Normal Exam, Normal Oropharynx - Neck Exam Neck Exam: Full ROM, Normal Inspection. absent: Lymphadenopathy, Thyromegaly - Respiratory Exam Respiratory Exam: Clear to Ausculation Bilateral, NORMAL BREATHING PATTERN - Cardiovascular Exam Cardiovascular Exam: REGULAR RHYTHM, +S1, +S2. absent: Gallop, Rubs - GI/Abdominal Exam GI & Abdominal Exam: Soft, Normal Bowel Sounds. absent: Rigid, Hyperactive Bowel Sounds - Extremities Exam Extremities Exam: Full ROM, Normal Inspection. absent: Joint Swelling, Pedal Edema, Tenderness - Back Exam Back Exam: muscle spasm, NORMAL INSPECTION Additional comments: bilateral shoulder tenderness appreciated on physical exam. - Neurological Exam Neurological Exam: Alert, Awake, CN II-XII Intact - Psychiatric Exam Psychiatric exam: Normal Affect, Normal Mood. absent: Anxious, Depressed, Flat Affect - Skin Skin Exam: Dry, Intact, Normal Color, Warm. absent: Diaphoretic, Pallor Assessment and Plan - Assessment and Plan (Free Text) Assessment: 41 year old female with a past medical history of type 1 diabetes, hypertension , ESRD on HD( MWF), and deperession who was admitted to the hospital for missing HD session. Plan: ESRD on HD via Right Arm AV Fistula Vascular Surgery consult, Dr Finley * Fistulagram scheduled for 05/06/17 in AM * Expected to resume HD after procedure. Nephrology consult, Dr Velazquez * HD MWF Hemodialysis Access Duplex US (05/02/17): hemodynamically significant stenosis in the right brachial - basilic fistula anastomosis and distal upper arm basilic with stent Continue Sensipar 90mg PO Daily [facility] Continue Sevelamer 1600mg TID Musculoskeletal pain (shoulders bilaterally) - OMT to the region once patient returns from Fistulogram procedure. Will reassess tomorrow. DM I Novolog 4 Units AC Lantus 6 Units HS Human RISS ACHS Hypoglyemia Protocol HTN Labetolol 300 PO twice daily Minoxidil 10mg PO BID Clonidine 0.2mg PO BID Hx of Parasthesia/Neuropathic pain (Hands, Arm, Neck) Lyrica 75mg PO HS Cyclobenzaprine 5mg HS [facility] Hx of GERD Protonix 40mg daily Prophylaxis Protonix 40mg PO QD colace 100mg PO daily Heparin 5000u SC Q8H held for procedure tomorrow
[2017-05-06] MEDS ORDERED: Iohexol 240 200 ML ONE (13:29)
[2017-05-06] MEDS ORDERED: Sodium Chloride 0.9% 250 ML IV ONE (13:45)
[2017-05-06] MEDS ORDERED: ceFAZolin IV 1 gm in Dextrose 1 GM/50 ML BAG IVPB ONE (13:54)
[2017-05-06] MEDS ORDERED: HEPARIN-NS 5,000 UNITS/500 ML 10,000 UNIT/1,000 ML BAG IV ONE (13:54)
--- NOTE | 2017-05-06 14:00 | CP.PCM.PN ---
Subjective - Date & Time of Evaluation Date of Evaluation: 05/06/17 Time of Evaluation: 13:59 - Subjective Subjective: lmp 5 days ago no sexual relations in over 6 months denies possibility of Objective - Vital Signs/Intake and Output Vital Signs (last 24 hours): Temp Pulse Resp BP Pulse Ox 98.4 F 85 20 164/64 H 99 05/06/17 08:22 05/06/17 08:22 05/06/17 08:22 05/06/17 08:22 05/06/17 08:22 Intake and Output: 05/06/17 05/06/17 06:59 18:59 Intake Total 300 Balance 300 - Medications Medications: Current Medications Cinacalcet (Sensipar) 90 mg PO DAILY [facility] Last Admin: 05/06/17 12:08 Dose: Not Given Clonidine HCl (Catapres) 0.2 mg PO BID [facility] Last Admin: 05/06/17 12:06 Dose: Not Given Cyclobenzaprine HCl (Flexeril) 5 mg PO [facility] Last Admin: 05/05/17 21:34 Dose: 5 mg Dextrose (Glutose 15) 0 gm PO .ONCE PRN; Protocol PRN Reason: Hypoglycemia Protocol Dextrose (Dextrose 50%) 0 ml IV .STAT PRN; Protocol PRN Reason: Hypoglycemia Protocol Last Admin: 05/02/17 16:01 Dose: 50 ml Docusate Sodium (Colace) 100 mg PO DAILY [facility] Last Admin: 05/06/17 12:06 Dose: Not Given Glucagon (Glucagen Diagnostic Kit) 0 mg IM .STAT PRN; Protocol PRN Reason: Hypoglycemia Protocol Insulin Aspart (Novolog) 4 unit SC ACTID [facility] Last Admin: 05/06/17 12:07 Dose: Not Given Insulin Glargine (Lantus) 6 unit SC HS [facility] Last Admin: 05/05/17 21:36 Dose: Not Given Insulin Human Regular (Novolin R) 0 unit SC [facility] PRN Reason: Protocol Last Admin: 05/06/17 12:07 Dose: Not Given Labetalol HCl (Normodyne) 300 mg PO BID [facility] Last Admin: 05/06/17 12:07 Dose: Not Given Minoxidil (Loniten) 10 mg PO BID [facility] Last Admin: 05/06/17 12:06 Dose: Not Given Pantoprazole Sodium (Protonix Ec Tab) 40 mg PO DAILY [facility] Last Admin: 05/06/17 12:07 Dose: Not Given Pregabalin (Lyrica) 75 mg PO HS [facility] Last Admin: 05/05/17 21:33 Dose: 75 mg Sevelamer Carbonate (Renvela) 1,600 mg PO TIDCC [facility] Last Admin: 05/06/17 12:07 Dose: Not Given - Labs Labs: 05/05/17 08:22 05/05/17 08:22 PT 11.2 SECONDS (9.7-12.2) 05/06/17 12:49 INR 1.0 05/06/17 12:49 APTT 32 SECONDS (21-34) 05/06/17 12:49
[2017-05-06] MEDS ORDERED: Midazolam 2 MG/2 ML VIAL ONE ×2 (14:12→14:20)
--- NOTE | 2017-05-06 17:29 | RAD ---
PROCEDURE: Fluoroscopy up to 1 hr. HISTORY: RT.ARM FISTULOGRAM COMPARISON: None TECHNIQUE: Standard protocol for this study/examination. FINDINGS: Total fluoroscopic time (continuous mode) utilized during the procedure: 170.2 seconds. Total exam DLP: (mGy): 18.67 IMPRESSION: Less than 1 hr fluoroscopic time utilized during performance of the procedure.
--- NOTE | 2017-05-06 17:37 | PCM.SURG1 ---
Surgeon's Initial Post Op Note - Surgeon's Notes Surgeon: Dr. Finley Hearing Stenographer: adilia Lazcano PGY2 Type of Anesthesia: Moderate Sedation{RN}, Local Pre-Operative Diagnosis: Fistula stenosis Operative Findings: fistula stenosis on Distal anastomosis , stents Post-Operative Diagnosis: Same Operation Performed: Fistulogram, balloon angioplasty Specimen/Specimens Removed: None Estimated Blood Loss: EBL {In ML}: 50 Blood Products Given: N/A Drains Used: No Drains Post-Op Condition: Good Date of Surgery/Procedure: 05/06/17 Time of Surgery/Procedure: 17:37
[2017-05-06] MEDS: (Lantus) Insulin Glargine, Recombinant SC SCH ×2 (22:49→23:51)
[2017-05-07] MEDS: Oxycodone/Acetaminophen 5/325 mg Tab PO PRN ×3 (00:18→18:46)
--- NOTE | 2017-05-07 02:29 | OP ---
PROCEDURE DATE: 05/06/2017 PREOPERATIVE DIAGNOSIS: Poorly functioning fistula of the right arm. POSTOPERATIVE DIAGNOSIS: Poorly functioning fistula of the right arm. PROCEDURE CARRIED OUT: Revision of fistula with fistulogram and balloon angioplasty of previously placed stent. SURGEON: Edward Finley Jr., MD. INTERNAL RECRUITER: Dr. Juan Lazcano. ANESTHESIOLOGIST: Ailyn Mcgee CRNA. INDICATIONS: A 41-year-old woman on dialysis who previously had a basilic vein fistula of the right elbow elsewhere. She has had multiple stents put in it. OPERATIVE FINDINGS: There was approximately 70% stenosis in the middle of the stents. This was dilated with a 6-mm balloon with excellent cosmetic result. After this had been done, there was excellent flow. DESCRIPTION OF PROCEDURE: Patient was given local anesthesia. Using micropuncture technique, the fistula was cannulated. A guidewire was advanced centrally and a sheath was deposited adjacent to the arterial anastomosis. With compression on the venous side, reflux was obtained and showed there was a perfect arterial anastomosis without any evidence of significant stenosis. Most distal portion of the fistula was of normal size, however, became aneurysmal after this. This is the area where multiple stents were placed. Some of these were free floating, but at times . In the midst of this, there was an area of stenosis, which was dilated with a 6-mm balloon. Central veins did not show any significant stenosis and multiple images were taken to confirm this. After the procedure had been carried out and after the fistula had been dilated with a 6-mm balloon, we then removed the sheath and obtained hemostasis. Estimated blood loss was 20 mL and again basic finding is of stenosis in the middle of the stents. The major problem with access maybe related to the stent occupying a good portion of the previously placed fistula. Edward Finley Jr., MD cc: Gerry Velazquez MD
[2017-05-07] MEDS: (Novolin R) Insulin Human Regular 100 units/ml vial SC SCH ×3 (08:15→17:45)
[2017-05-07] MEDS: (Novolog) Insulin Aspart, Recombinant 100 u/ml 10 ml vial SC SCH ×4 (08:30→17:45)
[2017-05-07] MEDS: Labetalol Hydrochloride 300 mg Tab PO SCH ×2 (09:04→18:30)
[2017-05-07] MEDS: Pantoprazole 40 mg EC Tab PO SCH (09:04)
--- NOTE | 2017-05-07 09:23 | CP.PCM.PN ---
Subjective - Date & Time of Evaluation Date of Evaluation: 05/07/17 Time of Evaluation: 07:05 - Subjective Subjective: Vascular Surgery Note for Dr. Finley Patient seen and examined at bedside. No acute event overnight. Patient is s/p fistulogram with balloon angioplasty POD#1. Patient still complains of bilateral arm and generalized pain. She is tolerating diet and having BMs. Patient has no other complaints. Objective - Vital Signs/Intake and Output Vital Signs (last 24 hours): Temp Pulse Resp BP Pulse Ox 98.5 F 91 H 20 164/61 H 96 05/07/17 07:00 05/07/17 07:00 05/07/17 07:00 05/07/17 07:00 05/07/17 07:00 Intake and Output: 05/07/17 05/07/17 06:59 18:59 Intake Total 100 Balance 100 - Medications Medications: Current Medications Cinacalcet (Sensipar) 90 mg PO DAILY [facility] Last Admin: 05/07/17 09:04 Dose: 90 mg Clonidine HCl (Catapres) 0.2 mg PO BID [facility] Last Admin: 05/07/17 09:04 Dose: 0.2 mg Cyclobenzaprine HCl (Flexeril) 5 mg PO HS [facility] Last Admin: 05/06/17 22:52 Dose: 5 mg Dextrose (Glutose 15) 0 gm PO .ONCE PRN; Protocol PRN Reason: Hypoglycemia Protocol Dextrose (Dextrose 50%) 0 ml IV .STAT PRN; Protocol PRN Reason: Hypoglycemia Protocol Last Admin: 05/02/17 16:01 Dose: 50 ml Docusate Sodium (Colace) 100 mg PO DAILY [facility] Last Admin: 05/07/17 09:04 Dose: 100 mg Glucagon (Glucagen Diagnostic Kit) 0 mg IM .STAT PRN; Protocol PRN Reason: Hypoglycemia Protocol Insulin Aspart (Novolog) 4 unit SC ACTID [facility] Last Admin: 05/07/17 08:30 Dose: 4 unit Insulin Glargine (Lantus) 6 unit SC HS [facility] Last Admin: 05/06/17 23:51 Dose: 6 units Insulin Human Regular (Novolin R) 0 unit SC ACHS [facility] PRN Reason: Protocol Last Admin: 05/07/17 08:15 Dose: Not Given Labetalol HCl (Normodyne) 300 mg PO BID [facility] Last Admin: 05/07/17 09:04 Dose: 300 mg Minoxidil (Loniten) 10 mg PO BID [facility] Last Admin: 05/07/17 09:04 Dose: 10 mg Oxycodone/Acetaminophen (Percocet 5/325 Mg Tab) 2 tab PO Q4H PRN PRN Reason: Pain, moderate (4-7) Stop: 05/09/17 17:35 Last Admin: 05/07/17 08:56 Dose: 2 tab Pantoprazole Sodium (Protonix Ec Tab) 40 mg PO DAILY [facility] Last Admin: 05/07/17 09:04 Dose: 40 mg Pregabalin (Lyrica) 75 mg PO HS [facility] Last Admin: 05/06/17 22:52 Dose: 75 mg Sevelamer Carbonate (Renvela) 1,600 mg PO TIDCC [facility] Last Admin: 05/07/17 08:55 Dose: 1,600 mg - Labs Labs: 05/05/17 08:22 05/05/17 08:22 PT 11.2 SECONDS (9.7-12.2) 05/06/17 12:49 INR 1.0 05/06/17 12:49 APTT 32 SECONDS (21-34) 05/06/17 12:49 - Constitutional Appears: No Acute Distress - Eye Exam Eye Exam: Normal appearance - ENT Exam ENT Exam: Mucous Membranes Moist - Respiratory Exam Respiratory Exam: NORMAL BREATHING PATTERN - Cardiovascular Exam Cardiovascular Exam: REGULAR RHYTHM - GI/Abdominal Exam GI & Abdominal Exam: Soft, Normal Bowel Sounds. absent: Tenderness - Extremities Exam Additional comments: Right AVF with palpable thrill and audible bruit bilateral radial pulses present - Neurological Exam Neurological Exam: Alert, Awake, Oriented x3 - Psychiatric Exam Psychiatric exam: Normal Affect, Normal Mood - Skin Skin Exam: Dry, Intact, Normal Color, Warm Assessment and Plan - Assessment and Plan (Free Text) Plan: 41 F s/p fistulogram with balloon angioplasty POD#1 -Fistula may be used for Dialysis -Resume normal dialysis schedule -No further surgical intervention needed -Management as per primary -Discussed with Dr. Tushar Mosley PGY1
[2017-05-07 12:37] LABS: INR 1.1; PROTHROMBIN TIME 12.3 SECONDS (9.7-12.2)
[2017-05-07 12:38] LABS: BASO # 0.1 K/uL (0.0-0.2); BASO % 1.3 % (0.0-2.0); EOS # 0.3 K/uL (0.0-0.7); EOS % 7.1 % (0.0-4.0); HEMOGLOBIN 10.1 g/dL (11.0-16.0); LYMPH # 1.5 K/uL (1.0-4.3); LYMPH % 34.8 % (20.0-40.0); MEAN CELL VOLUME 89.3 fL (81.0-99.0); MEAN CORPUSCULAR HEMOGLOBIN 29.8 pg (27.0-31.0); MEAN CORPUSCULAR HGB CONC 33.4 g/dL (33.0-37.0); MEAN PLATELET VOLUME 10.8 fL (7.2-11.7); MONO # 0.5 K/uL (0.0-0.8); MONO % 12.2 % (0.0-10.0); NEUT % 44.6 % (50.0-75.0); RBC 3.4 Mil/uL (3.80-5.20); RED CELL DISTRIBUTION WIDTH 14.5 % (11.5-14.5); WHITE BLOOD COUNT 4.4 K/uL (4.8-10.8)
[2017-05-07 13:16] LABS: ALBUMIN 4.2 g/dL (3.5-5.0); CALCIUM 7.8 mg/dl (8.6-10.4)
--- NOTE | 2017-05-07 13:20 | CP.PCM.PN ---
Subjective - Date & Time of Evaluation Date of Evaluation: 05/07/17 Time of Evaluation: 13:19 - Subjective Subjective: seen and examined s/p fistuloplasty eating lunchdenies any n/v/d/sob/cp/fevers/chills/headache/rash requesting extra dialysis Objective - Vital Signs/Intake and Output Vital Signs (last 24 hours): Temp Pulse Resp BP Pulse Ox 98.5 F 91 H 20 164/61 H 96 05/07/17 07:00 05/07/17 07:00 05/07/17 07:00 05/07/17 07:00 05/07/17 07:00 Intake and Output: 05/07/17 05/07/17 06:59 18:59 Intake Total 100 Balance 100 - Medications Medications: Current Medications Cinacalcet (Sensipar) 90 mg PO DAILY [facility] Last Admin: 05/07/17 09:04 Dose: 90 mg Clonidine HCl (Catapres) 0.2 mg PO BID [facility] Last Admin: 05/07/17 09:04 Dose: 0.2 mg Cyclobenzaprine HCl (Flexeril) 5 mg PO [facility] Last Admin: 05/06/17 22:52 Dose: 5 mg Dextrose (Glutose 15) 0 gm PO .ONCE PRN; Protocol PRN Reason: Hypoglycemia Protocol Dextrose (Dextrose 50%) 0 ml IV .STAT PRN; Protocol PRN Reason: Hypoglycemia Protocol Last Admin: 05/02/17 16:01 Dose: 50 ml Docusate Sodium (Colace) 100 mg PO DAILY [facility] Last Admin: 05/07/17 09:04 Dose: 100 mg Glucagon (Glucagen Diagnostic Kit) 0 mg IM .STAT PRN; Protocol PRN Reason: Hypoglycemia Protocol Insulin Aspart (Novolog) 4 unit SC ACTID [facility] Last Admin: 05/07/17 11:59 Dose: Not Given Insulin Glargine (Lantus) 6 unit SC HS [facility] Last Admin: 05/06/17 23:51 Dose: 6 units Insulin Human Regular (Novolin R) 0 unit SC [facility] PRN Reason: Protocol Last Admin: 05/07/17 11:58 Dose: Not Given Labetalol HCl (Normodyne) 300 mg PO BID [facility] Last Admin: 05/07/17 09:04 Dose: 300 mg Minoxidil (Loniten) 10 mg PO BID [facility] Last Admin: 05/07/17 09:04 Dose: 10 mg Oxycodone/Acetaminophen (Percocet 5/325 Mg Tab) 2 tab PO Q4H PRN PRN Reason: Pain, moderate (4-7) Stop: 05/09/17 17:35 Last Admin: 05/07/17 08:56 Dose: 2 tab Pantoprazole Sodium (Protonix Ec Tab) 40 mg PO DAILY [facility] Last Admin: 05/07/17 09:04 Dose: 40 mg Pregabalin (Lyrica) 75 mg PO HS [facility] Last Admin: 05/06/17 22:52 Dose: 75 mg Sevelamer Carbonate (Renvela) 1,600 mg PO TIDCC [facility] Last Admin: 05/07/17 12:18 Dose: 1,600 mg - Labs Labs: 05/07/17 12:28 05/07/17 12:28 PT 12.3 SECONDS (9.7-12.2) H 05/07/17 12:28 INR 1.1 05/07/17 12:28 APTT 32 SECONDS (21-34) 05/06/17 12:49 - Constitutional Appears: Non-toxic, No Acute Distress, Chronically Ill - Head Exam Head Exam: NORMAL INSPECTION - Eye Exam Eye Exam: Normal appearance, PERRL Pupil Exam: NORMAL ACCOMODATION - ENT Exam ENT Exam: Mucous Membranes Moist, Normal Exam - Neck Exam Neck Exam: Normal Inspection - Respiratory Exam Respiratory Exam: Decreased Breath Sounds, Clear to Ausculation Bilateral, NORMAL BREATHING PATTERN - Cardiovascular Exam Cardiovascular Exam: REGULAR RHYTHM, RRR - GI/Abdominal Exam GI & Abdominal Exam: Distended, Soft, Normal Bowel Sounds - Extremities Exam Extremities Exam: Normal Inspection (rue avf w/ thrill, skin discoloration ) - Neurological Exam Neurological Exam: Alert, Awake, Normal Gait, Oriented x3 - Psychiatric Exam Psychiatric exam: Normal Affect, Normal Mood - Skin Skin Exam: Dry, Normal Color, Warm Assessment and Plan (1) CHF (congestive heart failure) Status: Acute (2) ESRD (end stage renal disease) on dialysis Status: Acute (3) Hyperkalemia Status: Acute (4) Type 1 diabetes mellitus with diabetic nephropathy Status: Acute (5) Anemia Status: Acute - Assessment and Plan (Free Text) Assessment: extra hd today stable for dc post dialysis from renal standpoint fluid restriction advised
[2017-05-07 14:36] VITALS: RESP 18
[2017-05-07 14:38] VITALS: O2SAT 100
--- NOTE | 2017-05-07 15:30 | CP.PCM.DIS ---
Provider - Provider Date of Admission: 05/03/17 16:21 Attending physician: Hermilo Garza MD Primary care physician: Unknown. Consults: Nephrology: Dr. Velazquez Vascular Surgery: Dr. Finley Time Spent in preparation of Discharge (in minutes): 45 Hospital Course - Lab Results Lab Results: Most Recent Lab Values WBC 4.4 K/uL (4.8-10.8) L 05/07/17 12:28 RBC 3.40 Mil/uL (3.80-5.20) L 05/07/17 12:28 Hgb 10.1 g/dL (11.0-16.0) L 05/07/17 12:28 Hct 30.4 % (34.0-47.0) L 05/07/17 12: MCV 89.3 fL (81.0-99.0) 05/07/17 12: MCH 29.8 pg (27.0-31.0) 05/07/17 12: MCHC 33.4 g/dL (33.0-37.0) 05/07/17 12: RDW 14.5 % (11.5-14.5) 05/07/17 12:28 Plt Count 115 K/uL (130-400) L 05/07/17 12:28 MPV 10.8 fL (7.2-11.7) 05/07/17 12: Neut % (Auto) 44.6 % (50.0-75.0) L 05/07/17 12: Lymph % (Auto) 34.8 % (20.0-40.0) 05/07/17 12: [place] % (Auto) 12.2 % (0.0-10.0) H 05/07/17 12:28 Eos % (Auto) 7.1 % (0.0-4.0) H 05/07/17 12:28 Baso % (Auto) 1.3 % (0.0-2.0) 05/07/17 12:28 Neut # 2.0 K/uL (1.8-7.0) 05/07/17 12:28 Lymph # 1.5 K/uL (1.0-4.3) 05/07/17 12:28 [place] # 0.5 K/uL (0.0-0.8) 05/07/17 12:28 Eos # 0.3 K/uL (0.0-0.7) 05/07/17 12:28 Baso # 0.1 K/uL (0.0-0.2) 05/07/17 12:28 Differential Comment 05/07/17 12:28 PT 12.3 SECONDS (9.7-12.2) H 05/07/17 12:28 INR 1.1 05/07/17 12:28 APTT 32 SECONDS (21-34) 05/06/17 12:49 Sodium 136 mmol/L (132-148) 05/07/17 12:28 Potassium 5.0 mmol/L (3.6-5.2) 05/07/17 12:28 Chloride 94 mmol/L (98-107) L 05/07/17 12:28 Carbon Dioxide 30 mmol/L (22-30) 05/07/17 12:28 Anion Gap 18 (10-20) 05/07/17 12:28 BUN 46 mg/dL (7-17) H 05/07/17 12:28 Creatinine 6.9 mg/dL (0.7-1.2) H 05/07/17 12:28 Est GFR ( Amer) 8 05/07/17 12:28 Est GFR (Non-Af Amer) 7 05/07/17 12:28 POC Glucose (mg/dL) 87 mg/dL (65-110) 05/07/17 11:36 Random Glucose 109 mg/dL (65-105) H 05/07/17 12:28 Calcium 7.8 mg/dl (8.6-10.4) L 05/07/17 12:28 Magnesium 2.4 mg/dL (1.6-2.3) H 05/01/17 18:54 Total Bilirubin 0.5 mg/dL (0.2-1.3) 05/07/17 12:28 AST 48 U/L (14-36) H D 05/07/17 12:28 ALT 27 U/L (9-52) 05/07/17 12:28 Alkaline Phosphatase 125 U/L (38-126) 05/07/17 12:28 Total Protein 8.3 g/dL (6.3-8.3) 05/07/17 12:28 Albumin 4.2 g/dL (3.5-5.0) 05/07/17 12:28 Globulin 4.0 gm/dL (2.2-3.9) H 05/07/17 12:28 Albumin/Globulin Ratio 1.0 (1.0-2.1) 05/07/17 12:28 - Hospital Course Hospital Course: Medical History: PMH: DM1, HTN, ESRD on dialysis MWF [facility] with Dr. Velazquez, Hx of CVA, depression PSH: B/l cataracts, R. retina surgery, AV shunt in R. arm, Embolectomy from R. LE, AV fistula L UE collapsed. FH: Mother - DM/ESRD; Dad - Heart problems, prostate cancer SH: denies alcohol, smoking, drugs. Lives with father, step mother in siblings. 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 Patient states that she missed her session because she was feeling depressed due to issues and stressors in her home. Patient states that she is experiencing a lot of stress due to her father. Patient also states that her session on Saturday was cut short because she could not stay still due to cramping pains on her anterior thighs. Patient states that she will also experiences numbness and electrical pain in her hands as well. Patient has tried an unspecified antidepressant medication in the past but without any success. Patient denies any other acute complaints including suicidal or homicidal ideation. Of note, patient also states that the people at her dialysis center told her that they are having a hard time sticking her in her AV fistula access site. Hospital Course: 41 year old female who was admitted from 05/01-05/07/17 who was admitted to [facility] for a missed dialysis session. While admitted Nephrology (Dr. Velazquez) and Vascular Surgery( Dr. Finley) were consulted. Vascular surgery performed a Fistulogram to repair the stenosis that was present in the right arm. The patient had on scheduled HD session following. The following day she had an extra HD session. While admitted the patient had a Rapid response called on 05/02/17 due to a glucose of 39. The patient was given D50 and orange juice. After successfully repairing the stenosis in her right arm the patient was able to resume dialysis. The patient was seen and determined stable for discharge. Imaging: Duplex scan hemo access: Right brachial bassilic vein fistula Hemodynamically significant stenosis in the right brahcial-basilic fistula anastamosis and distal upper arm basiilic with stent. Take Home Medications: Patient was recently refilled all of her medications. No need for refills at this time. Discharge Exam - Head Exam Head Exam: NORMAL INSPECTION - Eye Exam Eye Exam: EOMI, Normal appearance, PERRL. absent: Periorbital tenderness Pupil Exam: NORMAL ACCOMODATION, PERRL. absent: Irregular, Miosis, Mydriatic, Unequal - ENT Exam ENT Exam: Mucous Membranes Moist, Normal Oropharynx - Respiratory Exam Respiratory Exam: Clear to PA & Lateral, NORMAL BREATHING PATTERN, UNREMARKABLE. absent: Decreased Breath Sounds, Rales, Rhonchi - Cardiovascular Exam Cardiovascular Exam: REGULAR RHYTHM, +S1, +S2 - GI/Abdominal Exam GI & Abdominal Exam: Normal Bowel Sounds, Unremarkable. absent: Hypoactive Bowel Sounds, Organomegaly - Extremities Exam Extremities exam: full ROM, normal inspection - Back Exam Back exam: NORMAL INSPECTION. absent: CVA tenderness (L), CVA tenderness (R), paraspinal tenderness - Neurological Exam Neurological exam: Alert, CN II-XII Intact, Normal Gait, Oriented x3 - Psychiatric Exam Psychiatric exam: Normal Affect, Normal Mood - Skin Skin Exam: Dry, Intact, Normal Color, Warm Discharge Plan - Follow Up Plan Condition: STABLE Disposition: HOME/ ROUTINE Instructions: Heart Failure (DC), Dialysis Diet (DC), Diabetes Mellitus Type 1 in Adults (DC), End Stage Kidney Disease (DC) Additional Instructions: Please continue with your hemodialysis as scheduled. Continue your meds as ordered.
[2017-05-07 16:21] VITALS: BP 89/44; PULSE 78; TEMP 97.3
== END 2017-05-07 21:40 | disposition home or self-care (01) | DRG 252 ==
LOC: C.ER 17:17 → C.9E 20:23 → C.5S 05-02 06:56 → OBSVTOIN 05-03 16:21 → C.5S 05-05 11:18
PROVIDERS: ADMIT Internal Medicine; ATTEND Internal Medicine
PROC: 5A1D70Z Performance of Urinary Filtration, Intermittent, Less than 6 Hours Per Day (ICD-10-PCS; 2017-05-03)
PROC: 5A1D70Z Performance of Urinary Filtration, Intermittent, Less than 6 Hours Per Day (ICD-10-PCS; 2017-05-06)
PROC: 057B3ZZ Dilation of Right Basilic Vein, Percutaneous Approach (ICD-10-PCS; principal; 2017-05-06 17:30)
DX: I13.2 Hypertensive heart and chronic kidney disease with heart failure and with stage 5 chronic kidney disease, or end stage renal disease (principal); N18.6 End stage renal disease; E10.21 Type 1 diabetes mellitus with diabetic nephropathy; E10.649 Type 1 diabetes mellitus with hypoglycemia without coma; T82.856A Stenosis of peripheral vascular stent, initial encounter; D64.9 Anemia, unspecified; E10.22 Type 1 diabetes mellitus with diabetic chronic kidney disease; E87.5 Hyperkalemia; F32.9 Major depressive disorder, single episode, unspecified; I50.9 Heart failure, unspecified; K21.9 Gastro-esophageal reflux disease without esophagitis; Z79.4 Long term (current) use of insulin; Z86.73 Personal history of transient ischemic attack (TIA), and cerebral infarction without residual deficits; Z87.01 Personal history of pneumonia (recurrent); Z87.891 Personal history of nicotine dependence; Z91.15 Patient's noncompliance with renal dialysis; Z99.2 Dependence on renal dialysis; M54.5 Low back pain; G89.29 Other chronic pain; M62.838 Other muscle spasm; M79.642 Pain in left hand; Y83.2 Surgical operation with anastomosis, bypass or graft as the cause of abnormal reaction of the patient, or of later complication, without mention of misadventure at the time of the procedure

== ENCOUNTER 2017-05-07 21:26 | Emergency (ER) | payer MEDICARE, SELFPAY ==
[2017-05-07 21:27] VITALS: BMI 22.2
[2017-05-07 22:19] VITALS: TEMP 98; O2SAT 99
--- NOTE | 2017-05-07 22:37 | C.PDOC ---
History Of Present Illness The patient presents to the ED for evaluation of low blood sugar levels which she noted after she was discharged from dialysis earlier today. Patient's accu- chek level was 55 mg/dL in triage. She denies chest pain, nausea, vomiting. Time Seen by Provider: 05/07/17 22:37 Chief Complaint (Nursing): Medical Clearance History Per: Patient History/Exam Limitations: no limitations Onset/Duration Of Symptoms: Hrs Current Symptoms Are (Timing): Still Present Severity: None Pain Scale Rating Of: 0 Recent travel outside of the [place]: No Additional History Per: Patient Past Medical History Reviewed: Historical Data, Nursing Documentation, Vital Signs Vital Signs: Last Vital Signs Temp 98 F 05/07/17 22:15 Pulse 88 05/07/17 22:15 Resp 20 05/07/17 22:15 BP 160/75 H 05/07/17 22:15 Pulse Ox 99 05/07/17 23:36 - Medical History PMH: Anemia, Anxiety, Depression, Diabetes, Fractures (RT ANKLE), HTN, Pneumonia , End Stage Renal Disease (M-W-F), Chronic Kidney Disease, Seizures (2008) Denies: Kidney Stones Surgical History: No Surg Hx - [facility] Procedures DILATION OF R BASILIC VEIN WITH INTRALUM DEV, PERC APPROACH (07/13/16) EXTIRPATION OF MATTER FROM RIGHT BASILIC VEIN, PERC APPROACH (07/13/16) FLUOROSCOPY OF INF VENA CAVA USING L OSM CONTRAST, GUIDANCE (05/29/16) INDIVIDUAL PSYCHOTHERAPY, COGNITIVE-BEHAVIORAL (10/23/16) INDIVIDUAL PSYCHOTHERAPY, SUPPORTIVE (10/23/16) INSERTION OF INFUSION DEV INTO INF VENA CAVA, PERC APPROACH (05/29/16) INSERTION OF INFUSION DEV INTO SUP VENA CAVA, PERC APPROACH (07/13/16) INTRODUCE OTH THROMBOLYTIC IN PERIPH VEIN, PERC (07/13/16) PERFORMANCE OF URINARY FILTRATION, MULTIPLE (01/03/17) REMOVAL OF OTHER DEVICE ON RIGHT INGUINAL REGION (05/29/16) ULTRASONOGRAPHY OF INFERIOR VENA CAVA, GUIDANCE (07/13/16) Family History: States: Unknown Family Hx - Social History Hx Tobacco Use: Yes Hx Alcohol Use: No Hx Substance Use: No - Immunization History Hx Tetanus Toxoid Vaccination: No Hx Influenza Vaccination: No Hx Pneumococcal Vaccination: No Review Of Systems Constitutional: Positive for: Other (low blood sugar ). Negative for: Fever, Chills, Sweats Cardiovascular: Negative for: Chest Pain, Palpitations Gastrointestinal: Negative for: Nausea, Vomiting Genitourinary: Negative for: Dysuria, Frequency Neurological: Negative for: Weakness, Numbness, Confusion, Dizziness Psych: Negative for: Anxiety Physical Exam - Physical Exam Appears: Non-toxic, No Acute Distress Skin: Warm, Dry Oral Mucosa: Moist Neck: Supple Chest: Symmetrical, No Deformity, No Tenderness Cardiovascular: Rhythm Regular, No Murmur Respiratory: No Accessory Muscle Use Gastrointestinal/Abdominal: No Tenderness Extremity: Capillary Refill (less than 2 seconds ), Other (r arm dialysis shunt with good thrill and bruit) Neurological/Psych: Oriented x3, Normal Speech, Normal Cognition Gait: Steady ED Course And Treatment O2 Sat by Pulse Oximetry: 99 (on RA) Pulse Ox Interpretation: Normal Progress Note: pt feels fine and wants to go home Reevaluation Time: 23:38 Reassessment Condition: Improved Disposition Counseled Patient/Family Regarding: Studies Performed, Diagnosis, Need For Followup - Disposition Referrals: Nubia Anthony DO [Resident] - Disposition: HOME/ ROUTINE Disposition Time: 22:37 Condition: FAIR Additional Instructions: Please check your sugars at least 4 times a day for the next 2 days Instructions: Diabetic Hypoglycemia (DC) Forms: [facility] (Swedish) - Clinical Impression Clinical Impression: Hypoglycemia - Scribe Statement The provider has reviewed the documentation as recorded by the Scribe (Peggy Fofana) Provider Attestation: All medical record entries made by the Scribe were at my direction and personally dictated by me. I have reviewed the chart and agree that the record accurately reflects my personal performance of the history, physical exam, medical decision making, and the department course for this patient. I have also personally directed, reviewed, and agree with the discharge instructions and disposition.
[2017-05-07 23:44] VITALS: BP 146/74; PULSE 83; RESP 18
== END 2017-05-07 23:45 | disposition home or self-care (01) ==
LOC: C.ER 21:26
DX: E11.649 Type 2 diabetes mellitus with hypoglycemia without coma (principal); I12.0 Hypertensive chronic kidney disease with stage 5 chronic kidney disease or end stage renal disease; N18.6 End stage renal disease; Z99.2 Dependence on renal dialysis; Z87.891 Personal history of nicotine dependence

== ENCOUNTER 2017-07-22 19:26 | Inpatient (IN) | payer MEDICARE, MEDICAID ==
[2017-07-22 19:28] VITALS: BMI 22.2
--- NOTE | 2017-07-22 20:06 | C.PDOC ---
History Of Present Illness 42 year old female presents to the ED for evaluation of a clogged AV shunt. Patient went to dialysis today and noticed that after her AV shunt was clogged. Patient denies any fever, chills, nausea, vomit, diarrhea, weakness, numbness. Chief Complaint (Nursing): Vascular Access Device Problem History Per: Patient History/Exam Limitations: no limitations Onset/Duration Of Symptoms: Hrs Current Symptoms Are (Timing): Still Present Recent travel outside of the [place]: No Additional History Per: Patient Past Medical History Reviewed: Historical Data, Nursing Documentation, Vital Signs Vital Signs: Last Vital Signs Temp 97.7 F 07/22/17 19:34 Pulse 77 07/22/17 19:34 Resp 20 07/22/17 19:34 BP 156/57 H 07/22/17 19:34 Pulse Ox 98 07/22/17 20:36 - Medical History PMH: Anemia, Anxiety, Depression, Diabetes, Fractures (RT ANKLE), HTN, Pneumonia , End Stage Renal Disease (M-W-F), Chronic Kidney Disease, Seizures (2008) Denies: Kidney Stones Surgical History: No Surg Hx - [facility] (05/03/17) DILATION OF R BASILIC VEIN WITH INTRALUM DEV, PERC APPROACH (07/13/16) DILATION OF RIGHT BASILIC VEIN, PERCUTANEOUS APPROACH (05/03/17) EXTIRPATION OF MATTER FROM RIGHT BASILIC VEIN, PERC APPROACH (07/13/16) FLUOROSCOPY OF INF VENA CAVA USING L OSM CONTRAST, GUIDANCE (05/29/16) INDIVIDUAL PSYCHOTHERAPY, COGNITIVE-BEHAVIORAL (10/23/16) INDIVIDUAL PSYCHOTHERAPY, SUPPORTIVE (10/23/16) INSERTION OF INFUSION DEV INTO INF VENA CAVA, PERC APPROACH (05/29/16) INSERTION OF INFUSION DEV INTO SUP VENA CAVA, PERC APPROACH (07/13/16) INTRODUCE OTH THROMBOLYTIC IN PERIPH VEIN, PERC (07/13/16) PERFORMANCE OF URINARY FILTRATION, MULTIPLE (01/03/17) REMOVAL OF OTHER DEVICE ON RIGHT INGUINAL REGION (05/29/16) ULTRASONOGRAPHY OF INFERIOR VENA CAVA, GUIDANCE (07/13/16) Family History: States: Unknown Family Hx - Social History Hx Tobacco Use: Yes Hx Alcohol Use: No Hx Substance Use: No - Immunization History Hx Tetanus Toxoid Vaccination: No Hx Influenza Vaccination: No Hx Pneumococcal Vaccination: No Review Of Systems Constitutional: Negative for: Fever, Chills Cardiovascular: Negative for: Chest Pain, Palpitations Gastrointestinal: Negative for: Vomiting, Abdominal Pain Skin: Negative for: Rash Neurological: Negative for: Weakness, Numbness Physical Exam - Physical Exam Appears: Non-toxic, No Acute Distress Skin: Normal Color, Warm, Dry Head: Atraumatic, Normacephalic Eye(s): bilateral: Normal Inspection Nose: No Discharge Oral Mucosa: Moist Neck: Normal ROM, Supple Chest: Symmetrical Cardiovascular: Rhythm Regular, No Murmur Respiratory: Normal Breath Sounds, No Rales, No Rhonchi, No Wheezing Gastrointestinal/Abdominal: Soft, No Tenderness, No Guarding, No Rebound Extremity: Normal ROM, No Tenderness, Capillary Refill (< 2 seconds), No Swelling, Other (AV shunt clogged) Pulses: Left Radial: Normal, Right Radial: Normal Neurological/Psych: Oriented x3, Normal Motor, Normal Sensation Gait: Steady ED Course And Treatment - Laboratory Results Result Diagrams: 07/22/17 20:09 07/22/17 20:09 O2 Sat by Pulse Oximetry: 98 (On RA) Pulse Ox Interpretation: Normal Medical Decision Making Medical Decision Making: Impression: clogged AV shunt Plan: * Labs 20:35 - Spoke with Tushar Yang who will see the patient and be on consult Disposition Discussed With Dr.: Arturo Leroy Doctor Will See Patient In The: Hospital Counseled Patient/Family Regarding: Diagnosis - Disposition Disposition: HOSPITALIZED Disposition Time: 20:37 Condition: STABLE Forms: [facility] (Botswanan) - POA Present On Arrival: [facility] - Clinical Impression Clinical Impression: ESRD (end stage renal disease) on dialysis, Arteriovenous shunt malfunction - Scribe Statement The provider has reviewed the documentation as recorded by the Scribe Roberto Angel All medical record entries made by the Scribe were at my direction and personally dictated by me. I have reviewed the chart and agree that the record accurately reflects my personal performance of the history, physical exam, medical decision making, and the department course for this patient. I have also personally directed, reviewed, and agree with the discharge instructions and disposition.
[2017-07-22 20:13] LABS: BASO # 0.1 K/uL (0.0-0.2); BASO % 1.8 % (0.0-2.0); EOS # 0.2 K/uL (0.0-0.7); EOS % 5.1 % (0.0-4.0); HEMOGLOBIN 12.7 g/dL (11.0-16.0); LYMPH # 1.5 K/uL (1.0-4.3); LYMPH % 35.6 % (20.0-40.0); MEAN CELL VOLUME 89.6 fL (81.0-99.0); MEAN CORPUSCULAR HEMOGLOBIN 30.6 pg (27.0-31.0); MEAN CORPUSCULAR HGB CONC 34.1 g/dL (33.0-37.0); MEAN PLATELET VOLUME 10.2 fL (7.2-11.7); MONO # 0.6 K/uL (0.0-0.8); MONO % 13.7 % (0.0-10.0); NEUT # 1.9 K/uL (1.8-7.0); NEUT % 43.8 % (50.0-75.0); NRBC % 0.1 % (0.0-2.0); RBC 4.16 Mil/uL (3.80-5.20); RED CELL DISTRIBUTION WIDTH 13.9 % (11.5-14.5); WHITE BLOOD COUNT 4.3 K/uL (4.8-10.8)
[2017-07-22 20:21] LABS: PROTHROMBIN TIME 11.4 SECONDS (9.7-12.2)
[2017-07-22 20:26] LABS: ALBUMIN 4.7 g/dL (3.5-5.0); CALCIUM 8.8 mg/dl (8.6-10.4)
--- NOTE | 2017-07-22 22:54 | CP.PCM.HP ---
<Nano Dee - Last Filed: 07/23/17 00:19> History of Present Illness - History of Present Illness History of Present Illness: HPI: This is a 41 year old female with past medical history of type 1 diabetes, hypertension, ESRD on HD (M,W,F), depression who presents due her AV shunt being clogged. Patient states she went to dialysis today and they had difficulty starting dialysis however they were able to complete the session. The sent her to the ER to have the shunt evaluated as they believe there is a clot and it may not work for next session on Saturday. Patient denies pain in her arm but states the shunt is swollen. Patient denies chest pain, shortness of breath, fever, nausea, vomiting, abdominal pain, diarrhea or constipation. Past Medical History: DM1, HTN, ESRD on dialysis [facility] with Dr. Velazquez, Hx of CVA, depression Past Surgical History: B/l cataracts, R. retina surgery, AV shunt in R. arm, Embolectomy from R. LE, AV fistula left UE collapsed. Family History: Mother - DM/ESRD; Dad - Heart problems, prostate cancer Medications: Novolog 4 units before meals, Lantus 6 units HS, Labetolol 300 mg PO BID, Minoxidil 10 mg PO BID, Clonidine 0.2 mg PO BID, Lyrica 50 mg PO HS, Sensipar 90 mg daily, Renvela 3 tabs TID, Nexium 40 mg daily Allergies: NKDA Social History: denies alcohol, smoking, or illicit drug use Present on Admission - Present on Admission Any Indicators Present on Admission: No Review of Systems - Constitutional Constitutional: absent: Chills, Fever - EENT Eyes: absent: Blurred Vision - Cardiovascular Cardiovascular: absent: Chest Pain, Dyspnea, Palpitations, Pedal Edema - Respiratory Respiratory: absent: Cough, Dyspnea - Gastrointestinal Gastrointestinal: absent: Constipation, Diarrhea, Nausea, Vomiting - Genitourinary Genitourinary: absent: Dysuria - Musculoskeletal Musculoskeletal: Other (right arm swelling) - Neurological Neurological: absent: Dizziness, Headaches Past Patient History - Infectious Disease Hx of Infectious Diseases: None - Past Medical History & Family History Past Medical History?: Yes - Past Social History Smoking Status: Never Smoked - CARDIAC Hx Hypertension: Yes - PULMONARY Hx Pneumonia: Yes - NEUROLOGICAL Hx Seizures: Yes (2008) - HEENT Hx HEENT Problems: Yes Hx Cataracts: Yes (HAD CUATE CATARACT SURGERY) - RENAL Hx Chronic Kidney Disease: Yes Hx Kidney Stones: No - ENDOCRINE/METABOLIC Hx Endocrine Disorders: Yes Hx Diabetes Mellitus Type 1: Yes - HEMATOLOGICAL/ONCOLOGICAL Hx Anemia: Yes - INTEGUMENTARY Hx Dermatological Problems: No - MUSCULOSKELETAL/RHEUMATOLOGICAL Hx Fractures: Yes (RT ANKLE) - GASTROINTESTINAL Hx Gastrointestinal Disorders: Yes Hx Ulcer: Yes - GENITOURINARY/GYNECOLOGICAL Hx Genitourinary Disorders: No - PSYCHIATRIC Hx Anxiety: Yes Hx Depression: Yes Hx Substance Use: No - SURGICAL HISTORY Hx Surgeries: Yes Hx Arteriovenous Shunt: Yes (NON FUNC MITZI, NEW SIDNEY) Hx Cataract Extraction: Yes Hx Eye Surgery: Yes (RETINA RT) Hx Vascular Access Device: Yes (LEFT AV FISTULA) - ANESTHESIA Hx Anesthesia: Yes Hx Anesthesia Reactions: No Hx Malignant Hyperthermia: No Meds Allergies/Adverse Reactions: Allergies Allergy/AdvReac Type Severity Reaction Status Date / Time No Known Allergies Allergy Verified 07/22/17 19:42 Physical Exam - Constitutional Appears: Well, No Acute Distress - Head Exam Head Exam: ATRAUMATIC, NORMAL INSPECTION - Eye Exam Eye Exam: EOMI, Normal appearance - ENT Exam ENT Exam: Mucous Membranes Moist - Respiratory Exam Respiratory Exam: Clear to Auscultation Bilateral, NORMAL BREATHING PATTERN - Cardiovascular Exam Cardiovascular Exam: REGULAR RHYTHM, +S1, +S2 - GI/Abdominal Exam GI & Abdominal Exam: Normal Bowel Sounds, Soft. absent: Tenderness - Extremities Exam Extremities exam: Negative for: pedal edema, tenderness Additional comments: right arm AV fistula - Neurological Exam Neurological exam: Alert, Oriented x3 - Psychiatric Exam Psychiatric exam: Normal Affect, Normal Mood - Skin Skin Exam: Dry, Intact, Normal Color Results - Vital Signs Recent Vital Signs: Last Vital Signs Temp 98.0 F 07/22/17 22:17 Pulse 74 07/22/17 22:17 Resp 16 07/22/17 22:17 BP 156/73 H 07/22/17 22:17 Pulse Ox 97 07/22/17 22:17 - Labs Result Diagrams: 07/22/17 20:09 07/22/17 20:09 Labs: Laboratory Results - last 24 hr 07/22/17 07/22/17 07/22/17 20:09 20:09 20:09 WBC 4.3 L RBC 4.16 Hgb 12.7 D Hct 37.3 MCV 89.6 MCH 30.6 MCHC 34.1 RDW 13.9 Plt Count 127 L MPV 10.2 Neut % (Auto) 43.8 L Lymph % (Auto) 35.6 [place] % (Auto) 13.7 H Eos % (Auto) 5.1 H Baso % (Auto) 1.8 Neut # (Auto) 1.9 Lymph # (Auto) 1.5 [place] # (Auto) 0.6 Eos # (Auto) 0.2 Baso # (Auto) 0.1 PT 11.4 INR 1.0 APTT 31 Sodium 144 Potassium 4.0 Chloride 94 L Carbon Dioxide 30 Anion Gap 25 H BUN 21 H Creatinine 4.2 H Est GFR ( Amer) 14 Est GFR (Non-Af Amer) 12 Random Glucose 141 H Calcium 8.8 Total Bilirubin 0.8 AST 27 ALT 10 Alkaline Phosphatase 108 Total Protein 9.4 H Albumin 4.7 Globulin 4.7 H Albumin/Globulin Ratio 1.0 Assessment & Plan - Assessment and Plan (Free Text) Assessment: 1) Right AV shunt clot * IR Consult: Dr. Stacy --> help appreciated * NPO after midnight 2.) ESRD on HD MWF * Nephrology consult, Dr. Velazquez on board--> help appreciated * Continue Sensipar 90mg PO Daily CORINA * Continue Sevelamer 1600mg TIDCC 3) History of DM * [id number] (2017): 7.2 * f/u repeat A1c * Novolog 4 Units AC * Lantus 6 Units HS * Accuchecks * Hypoglycemia Protocol 4) Hypertension--Chronic * Labetolol 300 PO twice daily * Minoxidil 10mg PO BID * Clonidine 0.2mg PO BID * ESRD on dialysis * monitor 5) Hx of Parasthesia/Neuropathic pain (Hands, Arm, Neck) * Lyrica 75mg PO HS * Cyclobenzaprine 5mg HS CORINA 6) Hx of GERD * Protonix 40mg PO daily 7) Prophylaxis * Protonix 40mg PO QD * colace 100mg PO daily * Heparin 5000u SC Q8H --> did not start possible procedure * SCDs Case discussed with Dr. Rad Dee PGY-1 <Arturo Leroy P - Last Filed: 07/23/17 06:50> Results - Vital Signs Recent Vital Signs: Last Vital Signs Temp 98.2 F 07/23/17 00:00 Pulse 76 07/23/17 00:00 Resp 20 07/23/17 00:00 BP 157/69 H 07/23/17 00:00 Pulse Ox 97 07/23/17 04:07 - Labs Result Diagrams: 07/22/17 20:09 07/22/17 20:09 Labs: Laboratory Results - last 24 hr 07/22/17 07/22/17 07/22/17 20:09 20:09 20:09 WBC 4.3 L RBC 4.16 Hgb 12.7 D Hct 37.3 MCV 89.6 MCH 30.6 MCHC 34.1 RDW 13.9 Plt Count 127 L MPV 10.2 Neut % (Auto) 43.8 L Lymph % (Auto) 35.6 [place] % (Auto) 13.7 H Eos % (Auto) 5.1 H Baso % (Auto) 1.8 Neut # (Auto) 1.9 Lymph # (Auto) 1.5 [place] # (Auto) 0.6 Eos # (Auto) 0.2 Baso # (Auto) 0.1 PT 11.4 INR 1.0 APTT 31 Sodium 144 Potassium 4.0 Chloride 94 L Carbon Dioxide 30 Anion Gap 25 H BUN 21 H Creatinine 4.2 H Est GFR ( Amer) 14 Est GFR (Non-Af Amer) 12 POC Glucose (mg/dL) Random Glucose 141 H Calcium 8.8 Total Bilirubin 0.8 AST 27 ALT 10 Alkaline Phosphatase 108 Total Protein 9.4 H Albumin 4.7 Globulin 4.7 H Albumin/Globulin Ratio 1.0 07/22/17 23:48 WBC RBC Hgb Hct MCV MCH MCHC RDW Plt Count MPV Neut % (Auto) Lymph % (Auto) [place] % (Auto) Eos % (Auto) Baso % (Auto) Neut # (Auto) Lymph # (Auto) [place] # (Auto) Eos # (Auto) Baso # (Auto) PT INR APTT Sodium Potassium Chloride Carbon Dioxide Anion Gap BUN Creatinine Est GFR ( Amer) Est GFR (Non-Af Amer) POC Glucose (mg/dL) 117 H Random Glucose Calcium Total Bilirubin AST ALT Alkaline Phosphatase Total Protein Albumin Globulin Albumin/Globulin Ratio Attending/Attestation - Attestation I have personally seen and examined this patient.: Yes I have fully participated in the care of the patient.: Yes I have reviewed all pertinent clinical information: Yes Notes (Text): Assessment * ESRD on HD thrombosed right AV fistula * H/o type 1 dm, htn, dm neuropathy, anxiety, HD MWF Plan * Vascular surg consult * Continue home meds, hold prandial insulin, npo,
[2017-07-22] MEDS ORDERED: Dextrose 50% SYRINGE Inj (50 ml) IV PRN (22:58)
[2017-07-22] MEDS ORDERED: Glucagon Recombinant 1 mg Inj IM PRN (22:58)
--- NOTE | 2017-07-23 06:13 | CP.PCM.CON ---
History of Present Illness - History of Present Illness History of Present Illness: Vascular Surgery Consult: Dr. Finley Pt is a 42F with PMHx of ESRD on HD (MWF), HTN, HLD, & DM who presented to for malfunctioning R arm AV shunt. Pt states sh was able to get dialysis on saturday but they hard a hard time as she had to be stuck multiple times. Pt was sent to the ER for eval of shunt. Pt denies any complaints in her R arm, denies pain, numbness or tingling. Denies N/V, F/C. PMHx: as listed above PSHx: R arm AV shunt, L arm AVF, cataracts SocialHx: denies smoking, EtOH, drugs ALL: NKDA Review of Systems - Review of Systems All systems: reviewed and no additional remarkable complaints except (as per HPI ) Past Patient History - Infectious Disease Hx of Infectious Diseases: None - Past Medical History & Family History Past Medical History?: Yes - Past Social History Smoking Status: Never Smoked - CARDIAC Hx Hypertension: Yes - PULMONARY Hx Pneumonia: Yes - NEUROLOGICAL Hx Seizures: Yes (2008) - HEENT Hx HEENT Problems: Yes Hx Cataracts: Yes (HAD CUATE CATARACT SURGERY) - RENAL Hx Chronic Kidney Disease: Yes Hx Kidney Stones: No - ENDOCRINE/METABOLIC Hx Endocrine Disorders: Yes Hx Diabetes Mellitus Type 1: Yes - HEMATOLOGICAL/ONCOLOGICAL Hx Anemia: Yes - INTEGUMENTARY Hx Dermatological Problems: No - MUSCULOSKELETAL/RHEUMATOLOGICAL Hx Fractures: Yes (RT ANKLE) - GASTROINTESTINAL Hx Gastrointestinal Disorders: Yes Hx Ulcer: Yes - GENITOURINARY/GYNECOLOGICAL Hx Genitourinary Disorders: No - PSYCHIATRIC Hx Anxiety: Yes Hx Depression: Yes Hx Substance Use: No - SURGICAL HISTORY Hx Surgeries: Yes Hx Arteriovenous Shunt: Yes (NON FUNC MITZI, NEW SIDNEY) Hx Cataract Extraction: Yes Hx Eye Surgery: Yes (RETINA RT) Hx Vascular Access Device: Yes (LEFT AV FISTULA) - ANESTHESIA Hx Anesthesia: Yes Hx Anesthesia Reactions: No Hx Malignant Hyperthermia: No Meds Allergies/Adverse Reactions: Allergies Allergy/AdvReac Type Severity Reaction Status Date / Time No Known Allergies Allergy Verified 07/22/17 19:42 - Medications Medications: Current Medications Cinacalcet (Sensipar) 90 mg PO DAILY CORINA Clonidine HCl (Catapres) 0.2 mg PO BID CORINA Cyclobenzaprine HCl (Flexeril) 5 mg PO HS CORINA Dextrose (Dextrose 50% Inj) 0 ml IV STAT PRN; Protocol PRN Reason: Hypoglycemia Protocol Dextrose (Glutose 15) 0 gm PO ONCE PRN; Protocol PRN Reason: Hypoglycemia Protocol Docusate Sodium (Colace) 100 mg PO DAILY CORINA Glucagon (Glucagen Diagnostic Kit) 0 mg IM STAT PRN; Protocol PRN Reason: Hypoglycemia Protocol Dextrose (Dextrose 5% In Water 1000 Ml) 1,000 mls @ 0 mls/hr IV .Q0M PRN; Protocol; Per Protocol PRN Reason: Hypoglycemia Protocol Insulin Aspart (Novolog) 4 unit SC AC CORINA Insulin Glargine (Lantus) 6 unit SC HS CORINA Labetalol HCl (Normodyne) 300 mg PO BID CORINA Minoxidil (Loniten) 10 mg PO BID CORINA Pantoprazole Sodium (Protonix Ec Tab) 40 mg PO DAILY CORINA Pregabalin (Lyrica) 50 mg PO HS CORINA Sevelamer Carbonate (Renvela) 1,600 mg PO TIDCC CORINA Physical Exam - Constitutional Appears: Well, No Acute Distress - Head Exam Head Exam: ATRAUMATIC, NORMOCEPHALIC - Eye Exam Eye Exam: Normal appearance - ENT Exam ENT Exam: Mucous Membranes Moist - Respiratory Exam Respiratory Exam: NORMAL BREATHING PATTERN - Cardiovascular Exam Cardiovascular Exam: RRR - GI/Abdominal Exam GI & Abdominal Exam: Soft - Extremities Exam Extremities exam: Negative for: tenderness Additional comments: R arm AV shunt with pulsatile flow, no erythema - Neurological Exam Neurological exam: Alert, Oriented x3 - Skin Skin Exam: Dry, Warm Results - Vital Signs Recent Vital Signs: Last Vital Signs Temp 98.2 F 07/23/17 00:00 Pulse 76 07/23/17 00:00 Resp 20 07/23/17 00:00 BP 157/69 H 07/23/17 00:00 Pulse Ox 97 07/23/17 04:07 - Labs Result Diagrams: 07/22/17 20:09 07/22/17 20:09 Labs: Laboratory Results - last 24 hr 07/22/17 07/22/17 07/22/17 20:09 20:09 20:09 WBC 4.3 L RBC 4.16 Hgb 12.7 D Hct 37.3 MCV 89.6 MCH 30.6 MCHC 34.1 RDW 13.9 Plt Count 127 L MPV 10.2 Neut % (Auto) 43.8 L Lymph % (Auto) 35.6 [place] % (Auto) 13.7 H Eos % (Auto) 5.1 H Baso % (Auto) 1.8 Neut # (Auto) 1.9 Lymph # (Auto) 1.5 [place] # (Auto) 0.6 Eos # (Auto) 0.2 Baso # (Auto) 0.1 PT 11.4 INR 1.0 APTT 31 Sodium 144 Potassium 4.0 Chloride 94 L Carbon Dioxide 30 Anion Gap 25 H BUN 21 H Creatinine 4.2 H Est GFR ( Amer) 14 Est GFR (Non-Af Amer) 12 POC Glucose (mg/dL) Random Glucose 141 H Calcium 8.8 Total Bilirubin 0.8 AST 27 ALT 10 Alkaline Phosphatase 108 Total Protein 9.4 H Albumin 4.7 Globulin 4.7 H Albumin/Globulin Ratio 1.0 07/22/17 23:48 WBC RBC Hgb Hct MCV MCH MCHC RDW Plt Count MPV Neut % (Auto) Lymph % (Auto) [place] % (Auto) Eos % (Auto) Baso % (Auto) Neut # (Auto) Lymph # (Auto) [place] # (Auto) Eos # (Auto) Baso # (Auto) PT INR APTT Sodium Potassium Chloride Carbon Dioxide Anion Gap BUN Creatinine Est GFR ( Amer) Est GFR (Non-Af Amer) POC Glucose (mg/dL) 117 H Random Glucose Calcium Total Bilirubin AST ALT Alkaline Phosphatase Total Protein Albumin Globulin Albumin/Globulin Ratio Assessment & Plan - Assessment and Plan (Free Text) Assessment: 42F with malfunctioning R AV shunt Plan: - IR for eval of possible declotting - Keep NPO - d/w Dr. Tushar Coffman, PGY-3
[2017-07-23 07:25] LABS: PROTHROMBIN TIME 11.6 SECONDS (9.7-12.2)
[2017-07-23 07:29] LABS: HEMOGLOBIN 12.4 g/dL (11.0-16.0); MEAN CELL VOLUME 90.9 fL (81.0-99.0); MEAN CORPUSCULAR HEMOGLOBIN 30.6 pg (27.0-31.0); MEAN CORPUSCULAR HGB CONC 33.6 g/dL (33.0-37.0); MEAN PLATELET VOLUME 11.9 fL (7.2-11.7); RBC 4.04 Mil/uL (3.80-5.20); WHITE BLOOD COUNT 3.8 K/uL (4.8-10.8)
[2017-07-23 07:51] LABS: ALB/GLOB RATIO 1.1 (1.0-2.1); ALBUMIN 4.3 g/dL (3.5-5.0); CALCIUM 8.5 mg/dl (8.6-10.4)
[2017-07-23] MEDS: (Novolog) Insulin Aspart, Recombinant 100 u/ml 10 ml vial SC SCH ×3 (08:08→16:30)
--- NOTE | 2017-07-23 09:46 | CP.PCM.PN ---
<Andrew Bashir - Last Filed: 07/23/17 17:17> Subjective - Date & Time of Evaluation Date of Evaluation: 07/23/17 Time of Evaluation: 09:41 - Subjective Subjective: PGY-[address] Griffin Fofana. No acute events noted overnight. Patient did not offer any complaints. She understood she was going for IR procedure to check for patency of her right AV shunt. She denied chest pain, shortness of breath, abdominal pain, nausea, vomiting, fevers. Objective - Vital Signs/Intake and Output Vital Signs (last 24 hours): Temp Pulse Resp BP Pulse Ox 98.7 F 78 20 135/67 97 07/23/17 07:41 07/23/17 07:41 07/23/17 07:41 07/23/17 07:41 07/23/17 07:41 Intake and Output: 07/23/17 07/23/17 06:59 18:59 Intake Total 360 Balance 360 - Medications Medications: Current Medications Cinacalcet (Sensipar) 90 mg PO DAILY [facility] Clonidine HCl (Catapres) 0.2 mg PO BID [facility] Cyclobenzaprine HCl (Flexeril) 5 mg PO HS [facility] Dextrose (Dextrose 50% Inj) 0 ml IV STAT PRN; Protocol PRN Reason: Hypoglycemia Protocol Dextrose (Glutose 15) 0 gm PO ONCE PRN; Protocol PRN Reason: Hypoglycemia Protocol Docusate Sodium (Colace) 100 mg PO DAILY [facility] Glucagon (Glucagen Diagnostic Kit) 0 mg IM STAT PRN; Protocol PRN Reason: Hypoglycemia Protocol Dextrose (Dextrose 5% In Water 1000 Ml) 1,000 mls @ 0 mls/hr IV .Q0M PRN; Protocol; Per Protocol PRN Reason: Hypoglycemia Protocol Insulin Aspart (Novolog) 4 unit SC AC [facility] Last Admin: 07/23/17 08:08 Dose: Not Given Insulin Glargine (Lantus) 6 unit SC HS [facility] Labetalol HCl (Normodyne) 300 mg PO BID [facility] Minoxidil (Loniten) 10 mg PO BID [facility] Pantoprazole Sodium (Protonix Ec Tab) 40 mg PO DAILY [facility] Pregabalin (Lyrica) 50 mg PO HS [facility] Sevelamer Carbonate (Renvela) 1,600 mg PO TIDCC [facility] Last Admin: 07/23/17 08:09 Dose: Not Given - Labs Labs: 07/23/17 07:07 07/23/17 07:07 PT 11.6 SECONDS (9.7-12.2) 07/23/17 07:07 INR 1.0 07/23/17 07:07 APTT 32 SECONDS (21-34) 07/23/17 07:17 - Additional Findings Additional findings: - Constitutional Appears: Well, No Acute Distress - Head Exam Head Exam: ATRAUMATIC, NORMAL INSPECTION - Eye Exam Eye Exam: EOMI, Normal appearance - ENT Exam ENT Exam: Mucous Membranes Moist - Respiratory Exam Respiratory Exam: Clear to Auscultation Bilateral, NORMAL BREATHING PATTERN - Cardiovascular Exam Cardiovascular Exam: REGULAR RHYTHM, +S1, +S2 - GI/Abdominal Exam GI & Abdominal Exam: Normal Bowel Sounds, Soft. absent: Tenderness - Extremities Exam Extremities exam: Negative for: pedal edema, tenderness Additional comments: right arm AV fistula - Neurological Exam Neurological exam: Alert, Oriented x3 - Psychiatric Exam Psychiatric exam: Normal Affect, Normal Mood - Skin Skin Exam: Dry, Intact, Normal Color Assessment and Plan - Assessment and Plan (Free Text) Assessment: Right AV shunt clot * Vascular Surgery consult, Dr Finley. Will follow recommendations. * Dr Finley to place temporary dialysis access today at 5PM 07/23/17 * IR Consult: Dr. Stacy --> help appreciated * IR for declotting tmr 07/24/17 AM * NPO after midnight ESRD on HD MWF * 2/2 to diabetic nephropathy * Nephrology consult, Dr. Velazquez on board--> help appreciated * Continue Sensipar 90mg PO Daily [facility] * Continue Sevelamer 1600mg TIDCC DM, Type 1 * Hemoglobin A1c (2017): 7.2 * repeat A1c 6.4 * Novolog 4 Units AC * Lantus 6 Units HS * Accuchecks * Hypoglycemia Protocol Hypertension--Chronic * Labetolol 300 PO twice daily * Minoxidil 10mg PO BID * Clonidine 0.2mg PO BID * ESRD on dialysis * monitor Hx of Parasthesia/Neuropathic pain (Hands, Arm, Neck) * Lyrica 75mg PO HS * Cyclobenzaprine 5mg HS [facility] Hx of GERD * Protonix 40mg PO daily Hx of CVA Hx of Depression Prophylaxis * Protonix 40mg PO QD * colace 100mg PO daily * Heparin 5000u SC Q8H --> did not start possible procedure * SCDs <Rosendo Fofana J - Last Filed: 07/23/17 20:23> Objective - Vital Signs/Intake and Output Vital Signs (last 24 hours): Temp Pulse Resp BP Pulse Ox 98.2 F 71 20 156/71 H 95 07/23/17 15:24 07/23/17 15:24 07/23/17 15:24 07/23/17 15:24 07/23/17 15:24 Intake and Output: 07/23/17 07/24/17 18:59 06:59 Intake Total 50 Balance 50 - Medications Medications: Current Medications Cinacalcet (Sensipar) 90 mg PO DAILY [facility] Last Admin: 07/23/17 10:07 Dose: 90 mg Clonidine HCl (Catapres) 0.2 mg PO BID [facility] Last Admin: 07/23/17 18:20 Dose: 0.2 mg Cyclobenzaprine HCl (Flexeril) 5 mg PO HS [facility] Dextrose (Dextrose 50% Inj) 0 ml IV STAT PRN; Protocol PRN Reason: Hypoglycemia Protocol Dextrose (Glutose 15) 0 gm PO ONCE PRN; Protocol PRN Reason: Hypoglycemia Protocol Docusate Sodium (Colace) 100 mg PO BID [facility] Last Admin: 07/23/17 18:21 Dose: 100 mg Glucagon (Glucagen Diagnostic Kit) 0 mg IM STAT PRN; Protocol PRN Reason: Hypoglycemia Protocol Dextrose (Dextrose 5% In Water 1000 Ml) 1,000 mls @ 0 mls/hr IV .Q0M PRN; Protocol; Per Protocol PRN Reason: Hypoglycemia Protocol Insulin Aspart (Novolog) 4 unit SC AC [facility] Last Admin: 07/23/17 16:30 Dose: 4 unit Insulin Glargine (Lantus) 6 unit SC HS [facility] Labetalol HCl (Normodyne) 300 mg PO BID [facility] Last Admin: 07/23/17 18:20 Dose: 300 mg Minoxidil (Loniten) 10 mg PO BID [facility] Last Admin: 07/23/17 18:20 Dose: 10 mg Pantoprazole Sodium (Protonix Ec Tab) 40 mg PO DAILY [facility] Last Admin: 07/23/17 10:08 Dose: 40 mg Sevelamer Carbonate (Renvela) 1,600 mg PO TIDCC [facility] Last Admin: 07/23/17 17:00 Dose: 1,600 mg - Labs Labs: 07/23/17 07:07 07/23/17 07:07 PT 11.6 SECONDS (9.7-12.2) 07/23/17 07:07 INR 1.0 07/23/17 07:07 APTT 32 SECONDS (21-34) 07/23/17 07:17 Attending/Attestation - Attestation I have personally seen and examined this patient.: Yes I have fully participated in the care of the patient.: Yes I have reviewed all pertinent clinical information, including history, physical exam and plan: Yes Notes (Text): 07/23/17 20:20 Patient was seen and examined at 10:15 AM 350 A. Exam, assessment and plan gone over with the resident. Also on ROS Burning type pain all over her back face, neck, arms, hands that is chronic in nature. Last bowel movement was Saturday and it was hard Also on Exam: Systolic Ejection murmur heard in all of auscultatory tubbs Right Arm AV Fistula (+) Thrill weak Please note that her Lyrica was increased to 75 mg (she was on 50 mg ER HS at home). However, our pharmacy dose not carry Extended release of this drug and on the immediate release. This may be the cuase of her complaints upon ROS. Rosendo Fofana D.O.
[2017-07-23] MEDS: Pantoprazole 40 mg EC Tab PO SCH (10:08)
[2017-07-23] MEDS: Labetalol Hydrochloride 300 mg Tab PO SCH ×2 (10:09→18:20)
--- NOTE | 2017-07-23 10:49 | CP.PCM.CON ---
History of Present Illness - History of Present Illness History of Present Illness: This is a 41 year old female with past medical history of type 1 diabetes, hypertension, ESRD on HD (M,W,F), depression who presents due her AV shunt being clogged. Patient states she went to dialysis today and they had difficulty starting dialysis however they were able to complete the session. The sent her to the ER to have the shunt evaluated as they believe there is a clot and it may not work for next session on Saturday. Patient denies pain in her arm but states the shunt is swollen. Patient denies chest pain, shortness of breath, fever, nausea, vomiting, abdominal pain, diarrhea or constipation. Past Medical History: DM1, HTN, ESRD on dialysis [facility] with Dr. Velazquez, Hx of CVA, depression Past Surgical History: B/l cataracts, R. retina surgery, AV shunt in R. arm, Embolectomy from R. LE, AV fistula left UE collapsed. Family History: Mother - DM/ESRD; Dad - Heart problems, prostate cancer Medications: Novolog 4 units before meals, Lantus 6 units HS, Labetolol 300 mg PO BID, Minoxidil 10 mg PO BID, Clonidine 0.2 mg PO BID, Lyrica 50 mg PO HS, Sensipar 90 mg daily, Renvela 3 tabs TID, Nexium 40 mg daily Allergies: NKDA Social History: denies alcohol, smoking, or illicit drug use Review of Systems - Review of Systems All systems: reviewed and no additional remarkable complaints except (as per hpi ) Past Patient History - Infectious Disease Hx of Infectious Diseases: None - Past Medical History & Family History Past Medical History?: Yes - Past Social History Smoking Status: Never Smoked - CARDIAC Hx Hypertension: Yes - PULMONARY Hx Pneumonia: Yes - NEUROLOGICAL Hx Seizures: Yes (2008) - HEENT Hx HEENT Problems: Yes Hx Cataracts: Yes (HAD CUATE CATARACT SURGERY) - RENAL Hx Chronic Kidney Disease: Yes Hx Kidney Stones: No - ENDOCRINE/METABOLIC Hx Endocrine Disorders: Yes Hx Diabetes Mellitus Type 1: Yes - HEMATOLOGICAL/ONCOLOGICAL Hx Anemia: Yes - INTEGUMENTARY Hx Dermatological Problems: No - MUSCULOSKELETAL/RHEUMATOLOGICAL Hx Fractures: Yes (RT ANKLE) - GASTROINTESTINAL Hx Gastrointestinal Disorders: Yes Hx Ulcer: Yes - GENITOURINARY/GYNECOLOGICAL Hx Genitourinary Disorders: No - PSYCHIATRIC Hx Anxiety: Yes Hx Depression: Yes Hx Substance Use: No - SURGICAL HISTORY Hx Surgeries: Yes Hx Arteriovenous Shunt: Yes (NON FUNC MITZI, NEW SIDNEY) Hx Cataract Extraction: Yes Hx Eye Surgery: Yes (RETINA RT) Hx Vascular Access Device: Yes (LEFT AV FISTULA) - ANESTHESIA Hx Anesthesia: Yes Hx Anesthesia Reactions: No Hx Malignant Hyperthermia: No Meds Allergies/Adverse Reactions: Allergies Allergy/AdvReac Type Severity Reaction Status Date / Time No Known Allergies Allergy Verified 07/22/17 19:42 - Medications Medications: Current Medications Cinacalcet (Sensipar) 90 mg PO DAILY [facility] Last Admin: 07/23/17 10:07 Dose: 90 mg Clonidine HCl (Catapres) 0.2 mg PO BID [facility] Last Admin: 07/23/17 10:07 Dose: 0.2 mg Cyclobenzaprine HCl (Flexeril) 5 mg PO HS [facility] Dextrose (Dextrose 50% Inj) 0 ml IV STAT PRN; Protocol PRN Reason: Hypoglycemia Protocol Dextrose (Glutose 15) 0 gm PO ONCE PRN; Protocol PRN Reason: Hypoglycemia Protocol Docusate Sodium (Colace) 100 mg PO DAILY [facility] Last Admin: 07/23/17 10:07 Dose: 100 mg Docusate Sodium (Colace) 100 mg PO BID [facility] Glucagon (Glucagen Diagnostic Kit) 0 mg IM STAT PRN; Protocol PRN Reason: Hypoglycemia Protocol Dextrose (Dextrose 5% In Water 1000 Ml) 1,000 mls @ 0 mls/hr IV .Q0M PRN; Protocol; Per Protocol PRN Reason: Hypoglycemia Protocol Insulin Aspart (Novolog) 4 unit SC AC [facility] Last Admin: 07/23/17 08:08 Dose: Not Given Insulin Glargine (Lantus) 6 unit SC HS [facility] Labetalol HCl (Normodyne) 300 mg PO BID [facility] Last Admin: 07/23/17 10:09 Dose: 300 mg Minoxidil (Loniten) 10 mg PO BID [facility] Last Admin: 07/23/17 10:08 Dose: 10 mg Pantoprazole Sodium (Protonix Ec Tab) 40 mg PO DAILY [facility] Last Admin: 07/23/17 10:08 Dose: 40 mg Pregabalin (Lyrica) 25 mg PO ONCE ONE Stop: 07/23/17 10:46 Last Admin: 07/23/17 10:42 Dose: 25 mg Sevelamer Carbonate (Renvela) 1,600 mg PO TIDCC [facility] Last Admin: 07/23/17 08:09 Dose: Not Given Physical Exam - Constitutional Appears: Non-toxic, No Acute Distress, Chronically Ill - Head Exam Head Exam: NORMAL INSPECTION, NORMOCEPHALIC - Eye Exam Eye Exam: Normal appearance, PERRL - ENT Exam ENT Exam: Mucous Membranes Moist, Normal Exam - Neck Exam Neck exam: Positive for: Normal Inspection - Respiratory Exam Respiratory Exam: Clear to Auscultation Bilateral, NORMAL BREATHING PATTERN - Cardiovascular Exam Cardiovascular Exam: REGULAR RHYTHM, RRR - GI/Abdominal Exam GI & Abdominal Exam: Distended, Normal Bowel Sounds, Soft - Extremities Exam Extremities exam: Positive for: normal inspection Additional comments: lue avf w/ thrill Results - Vital Signs Recent Vital Signs: Last Vital Signs Temp 98.7 F 07/23/17 07:41 Pulse 78 07/23/17 07:41 Resp 20 07/23/17 07:41 BP 135/67 07/23/17 07:41 Pulse Ox 97 07/23/17 07:41 - Labs Result Diagrams: 07/23/17 07:07 07/23/17 07:07 Labs: Laboratory Results - last 24 hr 07/22/17 07/22/17 07/22/17 20:09 20:09 20:09 WBC 4.3 L RBC 4.16 Hgb 12.7 D Hct 37.3 MCV 89.6 MCH 30.6 MCHC 34.1 RDW 13.9 Plt Count 127 L MPV 10.2 Neut % (Auto) 43.8 L Lymph % (Auto) 35.6 [place] % (Auto) 13.7 H Eos % (Auto) 5.1 H Baso % (Auto) 1.8 Neut # (Auto) 1.9 Lymph # (Auto) 1.5 [place] # (Auto) 0.6 Eos # (Auto) 0.2 Baso # (Auto) 0.1 Differential Comment PT 11.4 INR 1.0 APTT 31 Sodium 144 Potassium 4.0 Chloride 94 L Carbon Dioxide 30 Anion Gap 25 H BUN 21 H Creatinine 4.2 H Est GFR ( Amer) 14 Est GFR (Non-Af Amer) 12 POC Glucose (mg/dL) Random Glucose 141 H Hemoglobin A1c Calcium 8.8 Phosphorus Magnesium Total Bilirubin 0.8 AST 27 ALT 10 Alkaline Phosphatase 108 Total Protein 9.4 H Albumin 4.7 Globulin 4.7 H Albumin/Globulin Ratio 1.0 Beta HCG, Quant 07/22/17 07/23/17 07/23/17 23:48 07:04 07:07 WBC 3.8 L RBC 4.04 Hgb 12.4 Hct 36.8 MCV 90.9 MCH 30.6 MCHC 33.6 RDW 14.0 Plt Count 118 L MPV 11.9 H Neut % (Auto) Lymph % (Auto) [place] % (Auto) Eos % (Auto) Baso % (Auto) Neut # (Auto) Lymph # (Auto) [place] # (Auto) Eos # (Auto) Baso # (Auto) Differential Comment PT INR APTT Sodium Potassium Chloride Carbon Dioxide Anion Gap BUN Creatinine Est GFR ( Amer) Est GFR (Non-Af Amer) POC Glucose (mg/dL) 117 H 149 H Random Glucose Hemoglobin A1c Calcium Phosphorus Magnesium Total Bilirubin AST ALT Alkaline Phosphatase Total Protein Albumin Globulin Albumin/Globulin Ratio Beta HCG, Quant 07/23/17 07/23/17 07/23/17 07:07 07:07 07:07 WBC RBC Hgb Hct MCV MCH MCHC RDW Plt Count MPV Neut % (Auto) Lymph % (Auto) [place] % (Auto) Eos % (Auto) Baso % (Auto) Neut # (Auto) Lymph # (Auto) [place] # (Auto) Eos # (Auto) Baso # (Auto) Differential Comment PT 11.6 INR 1.0 APTT Sodium 140 Potassium 4.2 Chloride 94 L Carbon Dioxide 28 Anion Gap 22 H BUN 29 H Creatinine 5.5 H Est GFR ( Amer) 10 Est GFR (Non-Af Amer) 9 POC Glucose (mg/dL) Random Glucose 162 H Hemoglobin A1c 6.4 Calcium 8.5 L Phosphorus 5.3 H Magnesium 2.2 Total Bilirubin 0.5 AST 25 ALT 8 L Alkaline Phosphatase 106 Total Protein 8.3 Albumin 4.3 Globulin 4.0 H Albumin/Globulin Ratio 1.1 Beta HCG, Quant 07/23/17 07/23/17 07:07 07:17 WBC RBC Hgb Hct MCV MCH MCHC RDW Plt Count MPV Neut % (Auto) Lymph % (Auto) [place] % (Auto) Eos % (Auto) Baso % (Auto) Neut # (Auto) Lymph # (Auto) [place] # (Auto) Eos # (Auto) Baso # (Auto) Differential Comment PT INR APTT 32 Sodium Potassium Chloride Carbon Dioxide Anion Gap BUN Creatinine Est GFR ( Amer) Est GFR (Non-Af Amer) POC Glucose (mg/dL) Random Glucose Hemoglobin A1c Calcium Phosphorus Magnesium Total Bilirubin AST ALT Alkaline Phosphatase Total Protein Albumin Globulin Albumin/Globulin Ratio Beta HCG, Quant < 2.39 Assessment & Plan (1) Arteriovenous shunt malfunction Status: Acute (2) ESRD (end stage renal disease) on dialysis Status: Acute (3) Chronic pain Status: Acute (4) Hypertension Status: Acute (5) Type 1 diabetes mellitus with diabetic nephropathy Status: Acute - Assessment and Plan (Free Text) Assessment: avf eval per vascular, noted hd tomorrow bp acceptable hgb at goal, no jerry
[2017-07-23] MEDS: (Lantus) Insulin Glargine, Recombinant SC SCH (22:13)
[2017-07-24] MEDS ORDERED: ceFAZolin 1 gm in NS 1 GM/100 ML BAG IVPB ONE (07:28)
[2017-07-24] MEDS: (Novolog) Insulin Aspart, Recombinant 100 u/ml 10 ml vial SC SCH ×3 (07:36→17:10)
[2017-07-24] MEDS ORDERED: HEPARIN-NS 5,000 UNITS/500 ML 5,000 UNIT/500 ML BAG IV ONE (07:42)
[2017-07-24] MEDS ORDERED: Midazolam 2 MG/2 ML VIAL ONE (07:44)
[2017-07-24] MEDS ORDERED: Propofol 10 mg/ml Inj (20 ML) ONE (07:44)
[2017-07-24] MEDS ORDERED: Lidocaine Hydrochloride 5 ML INJ ONE (07:45)
[2017-07-24] MEDS ORDERED: Iodixanol 320 MG/ML 200 ML BOTTLE IV ONE ×2 (07:46→07:49)
[2017-07-24 08:36] LABS: ALB/GLOB RATIO 1.1 (1.0-2.1); ALBUMIN 4.2 g/dL (3.5-5.0); CALCIUM 8.2 mg/dl (8.6-10.4)
[2017-07-24] MEDS ORDERED: Phenylephrine 10 mg/ml Inj ONE (08:46)
[2017-07-24] MEDS ORDERED: ePHEDrine 50 mg/ml Inj ONE (08:46)
--- NOTE | 2017-07-24 09:32 | PCM.SURG1 ---
Surgeon's Initial Post Op Note - Surgeon's Notes Surgeon: taya Wire Wheeler: 0 Type of Anesthesia: General LMA Anesthesia Administered By: mariel Pre-Operative Diagnosis: failed access right arm Operative Findings: successful placement of right femoral dialysis catheter. fisulagram right arm, balloon angioplasty of [place] stent stenosis (8 mm) Post-Operative Diagnosis: same Operation Performed: femoral dialysis catheter. fistulagram firht arm/balloon angioplasty of in stent stenosis Specimen/Specimens Removed: 0 Estimated Blood Loss: EBL {In ML}: 25 Blood Products Given: N/A Drains Used: No Drains Post-Op Condition: Good Date of Surgery/Procedure: 07/24/17 Time of Surgery/Procedure: 09:32
[2017-07-24] MEDS ORDERED: HYDROmorphone 1 mg/ml ISec IVP PRN (09:43)
--- NOTE | 2017-07-24 10:05 | RAD ---
PROCEDURE: Intraoperative Fluoroscopy. HISTORY: RENAL FAILURE FINDINGS: Fluoroscopic assistance was provided for right femoral dialysis catheter placement. Please refer to the operative report from VANESSA Daigle.
--- NOTE | 2017-07-24 10:07 | RAD ---
PROCEDURE: Intraoperative Fluoroscopy. HISTORY: Nonfunctioning av shunt FINDINGS: Fluoroscopic assistance was provided for right arm fistulogram. Please refer to the operative report from VANESSA Daigle.
[2017-07-24] MEDS: Labetalol Hydrochloride 300 mg Tab PO SCH ×2 (10:08→18:55)
[2017-07-24] MEDS: Pantoprazole 40 mg EC Tab PO SCH ×2 (10:08→11:18)
[2017-07-24] MEDS: Sodium Chloride 0.9% 1,000 ML IV SCH ×2 (10:09→22:09)
[2017-07-24] MEDS: Oxycodone/Acetaminophen 5/325 mg Tab PO PRN ×3 (11:17→23:19)
--- NOTE | 2017-07-24 15:17 | CP.PCM.PN ---
Subjective - Date & Time of Evaluation Date of Evaluation: 07/24/17 Time of Evaluation: 15:14 - Subjective Subjective: seen on HD wants to use chika femoral shiley in place no fever no abdominal pain no chest pain no sob no headache no pruritis no urinary complaints no visual changes no muscle weakness Objective - Vital Signs/Intake and Output Vital Signs (last 24 hours): Temp Pulse Resp BP Pulse Ox 97 F L 78 12 170/73 H 96 07/24/17 10:30 07/24/17 10:30 07/24/17 10:30 07/24/17 10:30 07/24/17 10:30 Intake and Output: 07/24/17 07/24/17 06:59 18:59 Intake Total 150 700 Balance 150 700 - Medications Medications: Current Medications Cinacalcet (Sensipar) 90 mg PO DAILY [facility] Last Admin: 07/24/17 11:18 Dose: 90 mg Clonidine HCl (Catapres) 0.2 mg PO BID [facility] Last Admin: 07/24/17 11:18 Dose: Not Given Cyclobenzaprine HCl (Flexeril) 5 mg PO [facility] Last Admin: 07/23/17 22:14 Dose: 5 mg Dextrose (Dextrose 50% Inj) 0 ml IV STAT PRN; Protocol PRN Reason: Hypoglycemia Protocol Dextrose (Glutose 15) 0 gm PO ONCE PRN; Protocol PRN Reason: Hypoglycemia Protocol Docusate Sodium (Colace) 100 mg PO BID [facility] Last Admin: 07/24/17 11:18 Dose: 100 mg Glucagon (Glucagen Diagnostic Kit) 0 mg IM STAT PRN; Protocol PRN Reason: Hypoglycemia Protocol Dextrose (Dextrose 5% In Water 1000 Ml) 1,000 mls @ 0 mls/hr IV .Q0M PRN; Protocol; Per Protocol PRN Reason: Hypoglycemia Protocol Sodium Chloride (Sodium Chloride 0.9%) 1,000 mls @ 75 mls/hr IV .[id number] [facility] Last Admin: 07/24/17 10:09 Dose: Not Given Insulin Aspart (Novolog) 4 unit SC AC [facility] Last Admin: 07/24/17 11:30 Dose: Not Given Insulin Glargine (Lantus) 6 unit SC [facility] Last Admin: 07/23/17 22:13 Dose: 6 units Labetalol HCl (Normodyne) 300 mg PO BID [facility] Last Admin: 07/24/17 10:08 Dose: Not Given Minoxidil (Loniten) 10 mg PO BID [facility] Last Admin: 07/24/17 10:08 Dose: Not Given Oxycodone/Acetaminophen (Percocet 5/325 Mg Tab) 1 tab PO Q4H PRN PRN Reason: Pain, moderate (4-7) Stop: 07/27/17 10:01 Last Admin: 07/24/17 11:17 Dose: 1 tab Pantoprazole Sodium (Protonix Ec Tab) 40 mg PO DAILY [facility] Last Admin: 07/24/17 11:18 Dose: 40 mg Sevelamer Carbonate (Renvela) 1,600 mg PO TIDCC [facility] Last Admin: 07/24/17 14:11 Dose: 1,600 mg - Labs Labs: 07/23/17 07:07 07/24/17 07:19 PT 11.6 SECONDS (9.7-12.2) 07/23/17 07:07 INR 1.0 07/23/17 07:07 APTT 32 SECONDS (21-34) 07/23/17 07:17 - Constitutional Appears: Non-toxic - Head Exam Head Exam: ATRAUMATIC - Eye Exam Eye Exam: Periorbital swelling - ENT Exam ENT Exam: Mucous Membranes Moist - Neck Exam Neck Exam: Full ROM. absent: Lymphadenopathy - Respiratory Exam Respiratory Exam: Decreased Breath Sounds. absent: Accessory Muscle Use - Cardiovascular Exam Cardiovascular Exam: REGULAR RHYTHM. absent: Rubs - GI/Abdominal Exam GI & Abdominal Exam: Soft, Normal Bowel Sounds - Extremities Exam Extremities Exam: absent: Pedal Edema - Neurological Exam Neurological Exam: Alert, Oriented x3 Assessment and Plan - Assessment and Plan (Free Text) Assessment: esrd access malfunction HD today with catheter f/u surgery recommendations
--- NOTE | 2017-07-24 16:41 | CP.PCM.PN ---
Addendum entered and electronically signed by Fred Celaya DO 07/24/17 16:55 : Additional plan: Conjunctival Injection Artificial Tears 2 drops OU BID Original Note: <Fred Celaya - Last Filed: 07/24/17 16:09> Subjective - Date & Time of Evaluation Date of Evaluation: 07/24/17 Time of Evaluation: 16:09 - Subjective Subjective: PGY1 Medicine Note for Dr. Grfifin Fofana Patient seen and examined this afternoon s/p placement of right femoral dialysis catheter and fistulagram right arm/balloon angioplasty of den[place] stent stenosis. Patient is currently receiving dialysis through the femoral catheter because the fistula is not allowed to be used until saturday, per surgery. Patient states she is feeling well. The numbness in her hand has decreased since the increase in her Lyrica. Patient states that she is feeling well and has no complaints at this time. Denied chest pain, shortness of breath, abdominal pain, nausea, vomiting, fevers. Objective - Vital Signs/Intake and Output Vital Signs (last 24 hours): Temp Pulse Resp BP Pulse Ox 97.4 F L 74 16 138/65 97 07/24/17 15:00 07/24/17 15:00 07/24/17 16:00 07/24/17 16:00 07/24/17 16:00 Intake and Output: 07/24/17 07/24/17 06:59 18:59 Intake Total 150 700 Balance 150 700 - Medications Medications: Current Medications Cinacalcet (Sensipar) 90 mg PO DAILY [facility] Last Admin: 07/24/17 11:18 Dose: 90 mg Clonidine HCl (Catapres) 0.2 mg PO BID [facility] Last Admin: 07/24/17 11:18 Dose: Not Given Cyclobenzaprine HCl (Flexeril) 5 mg PO HS [facility] Last Admin: 07/23/17 22:14 Dose: 5 mg Dextrose (Dextrose 50% Inj) 0 ml IV STAT PRN; Protocol PRN Reason: Hypoglycemia Protocol Dextrose (Glutose 15) 0 gm PO ONCE PRN; Protocol PRN Reason: Hypoglycemia Protocol Docusate Sodium (Colace) 100 mg PO BID [facility] Last Admin: 07/24/17 11:18 Dose: 100 mg Glucagon (Glucagen Diagnostic Kit) 0 mg IM STAT PRN; Protocol PRN Reason: Hypoglycemia Protocol Dextrose (Dextrose 5% In Water 1000 Ml) 1,000 mls @ 0 mls/hr IV .Q0M PRN; Protocol; Per Protocol PRN Reason: Hypoglycemia Protocol Sodium Chloride (Sodium Chloride 0.9%) 1,000 mls @ 75 mls/hr IV .[id number] [facility] Last Admin: 07/24/17 10:09 Dose: Not Given Insulin Aspart (Novolog) 4 unit SC AC [facility] Last Admin: 07/24/17 11:30 Dose: Not Given Insulin Glargine (Lantus) 6 unit SC HS [facility] Last Admin: 07/23/17 22:13 Dose: 6 units Labetalol HCl (Normodyne) 300 mg PO BID [facility] Last Admin: 07/24/17 10:08 Dose: Not Given Minoxidil (Loniten) 10 mg PO BID [facility] Last Admin: 07/24/17 10:08 Dose: Not Given Oxycodone/Acetaminophen (Percocet 5/325 Mg Tab) 1 tab PO Q4H PRN PRN Reason: Pain, moderate (4-7) Stop: 07/27/17 10:01 Last Admin: 07/24/17 11:17 Dose: 1 tab Pantoprazole Sodium (Protonix Ec Tab) 40 mg PO DAILY [facility] Last Admin: 07/24/17 11:18 Dose: 40 mg Sevelamer Carbonate (Renvela) 1,600 mg PO TIDCC [facility] Last Admin: 07/24/17 14:11 Dose: 1,600 mg - Labs Labs: 07/23/17 07:07 07/24/17 07:19 PT 11.6 SECONDS (9.7-12.2) 07/23/17 07:07 INR 1.0 07/23/17 07:07 APTT 32 SECONDS (21-34) 07/23/17 07:17 - Constitutional Appears: Non-toxic, No Acute Distress - Head Exam Head Exam: ATRAUMATIC, NORMOCEPHALIC - Eye Exam Eye Exam: Conjunctival injection, EOMI. absent: Normal appearance - ENT Exam ENT Exam: Mucous Membranes Moist - Respiratory Exam Respiratory Exam: Clear to Ausculation Bilateral, NORMAL BREATHING PATTERN. absent: Accessory Muscle Use, Rales, Rhonchi, Wheezes, Respiratory Distress - Cardiovascular Exam Cardiovascular Exam: REGULAR RHYTHM, +S1, +S2 - GI/Abdominal Exam GI & Abdominal Exam: Soft, Normal Bowel Sounds. absent: Firm, Guarding, Rigid, Tenderness - Exam Additional comments: Right femoral dialysis catheter. - Extremities Exam Extremities Exam: absent: Calf Tenderness, Pedal Edema Additional comments: Right arm AV fistula with auscultated thrill. - Neurological Exam Neurological Exam: Alert, Awake, Oriented x3 - Psychiatric Exam Psychiatric exam: Normal Affect, Normal Mood - Skin Skin Exam: Dry, Warm Assessment and Plan - Assessment and Plan (Free Text) Plan: Right AV shunt clot * Vascular Surgery consult, Dr Finley. Will follow recommendations. * Dr Finley to place temporary dialysis access today at 5PM 07/23/17 * IR Consult: Dr. Stacy --> help appreciated * s/p placement of right femoral dialysis catheter. fisulagram right arm, balloon angioplasty of denver stent stenosis * Do not use fistula until Saturday. Use femoral dialysis cath for dialysis today. ESRD on HD MWF * 2/2 to diabetic nephropathy * Nephrology consult, Dr. Velazquez on board--> help appreciated * Continue Sensipar 90mg PO Daily [facility] * Continue Sevelamer 1600mg TIDCC DM, Type 1 * Hemoglobin A1c (2017): 7.2 * repeat A1c 6.4 * Novolog 4 Units AC * Lantus 6 Units HS * Accuchecks * Hypoglycemia Protocol Hypertension--Chronic * Labetolol 300 PO twice daily * Minoxidil 10mg PO BID * Clonidine 0.2mg PO BID * ESRD on dialysis * monitor Hx of Parasthesia/Neuropathic pain (Hands, Arm, Neck) * Lyrica 75mg PO HS * Cyclobenzaprine 5mg HS [facility] Hx of GERD * Protonix 40mg PO daily Hx of CVA Hx of Depression Prophylaxis * Protonix 40mg PO QD * colace 100mg PO daily * Heparin 5000u SC Q8H * SCDs DISPO: Patient's fistula is not able to be used until Saturday's dialysis session. Will keep patient until Saturday and attempt to use fistula. If successful, will remove femoral catheter and discharge patient after dialysis on Saturday. Case discussed with Dr. Griffin Celaya PGY1 <Rosendo Fofana - Last Filed: 07/24/17 18:40> Objective - Vital Signs/Intake and Output Vital Signs (last 24 hours): Temp Pulse Resp BP Pulse Ox 97.4 F L 74 15 141/64 95 07/24/17 15:00 07/24/17 15:00 07/24/17 17:00 07/24/17 17:00 07/24/17 17:00 Intake and Output: 07/24/17 07/24/17 06:59 18:59 Intake Total 150 700 Balance 150 700 - Medications Medications: Current Medications Artificial Tears (Artificial Tears) 0 ml OU BID [facility] Cinacalcet (Sensipar) 90 mg PO DAILY [facility] Last Admin: 07/24/17 11:18 Dose: 90 mg Clonidine HCl (Catapres) 0.2 mg PO BID [facility] Last Admin: 07/24/17 11:18 Dose: Not Given Cyclobenzaprine HCl (Flexeril) 5 mg PO [facility] Last Admin: 07/23/17 22:14 Dose: 5 mg Dextrose (Dextrose 50% Inj) 0 ml IV STAT PRN; Protocol PRN Reason: Hypoglycemia Protocol Dextrose (Glutose 15) 0 gm PO ONCE PRN; Protocol PRN Reason: Hypoglycemia Protocol Docusate Sodium (Colace) 100 mg PO BID [facility] Last Admin: 07/24/17 11:18 Dose: 100 mg Glucagon (Glucagen Diagnostic Kit) 0 mg IM STAT PRN; Protocol PRN Reason: Hypoglycemia Protocol Dextrose (Dextrose 5% In Water 1000 Ml) 1,000 mls @ 0 mls/hr IV .Q0M PRN; Protocol; Per Protocol PRN Reason: Hypoglycemia Protocol Sodium Chloride (Sodium Chloride 0.9%) 1,000 mls @ 75 mls/hr IV .[id number] [facility] Last Admin: 07/24/17 10:09 Dose: Not Given Insulin Aspart (Novolog) 4 unit SC AC [facility] Last Admin: 07/24/17 11:30 Dose: Not Given Insulin Glargine (Lantus) 6 unit SC HS [facility] Last Admin: 07/23/17 22:13 Dose: 6 units Labetalol HCl (Normodyne) 300 mg PO BID [facility] Last Admin: 07/24/17 10:08 Dose: Not Given Minoxidil (Loniten) 10 mg PO BID [facility] Last Admin: 07/24/17 10:08 Dose: Not Given Oxycodone/Acetaminophen (Percocet 5/325 Mg Tab) 1 tab PO Q4H PRN PRN Reason: Pain, moderate (4-7) Stop: 07/27/17 10:01 Last Admin: 07/24/17 11:17 Dose: 1 tab Pantoprazole Sodium (Protonix Ec Tab) 40 mg PO DAILY [facility] Last Admin: 07/24/17 11:18 Dose: 40 mg Sevelamer Carbonate (Renvela) 1,600 mg PO TIDCC [facility] Last Admin: 07/24/17 14:11 Dose: 1,600 mg - Labs Labs: 07/23/17 07:07 07/24/17 07:19 PT 11.6 SECONDS (9.7-12.2) 07/23/17 07:07 INR 1.0 07/23/17 07:07 APTT 32 SECONDS (21-34) 07/23/17 07:17 Attending/Attestation - Attestation I have personally seen and examined this patient.: Yes I have fully participated in the care of the patient.: Yes I have reviewed all pertinent clinical information, including history, physical exam and plan: Yes Notes (Text): 07/24/17 18:40 Patient was seen and examined with Resident Physician Dr. Suh at the time patient was receiving HD in the HD center on 3T. Exam, assessment and plan were gone over with the resident. Rosendo Fofana D.O.
--- NOTE | 2017-07-24 18:16 | OP ---
PROCEDURE DATE: 07/24/2017 PREOPERATIVE DIAGNOSIS: Malfunctioning fistula, right arm. PROCEDURE CARRIED OUT: 1. Placement of temporary dialysis catheter via right femoral vein with ultrasound guidance and micropuncture technique. 2. Fistulogram, right arm with balloon angioplasty of intrafistula stenosis. SURGEON: Edward Finley Jr., MD ASSISTANTS: None. ANESTHESIOLOGIST: Mr. Clifton. ANESTHESIA: General anesthesia. INDICATIONS: The patient is a young woman with renal insufficiency, has a fistula in her right arm which has been partially stented with multiple stents being placed elsewhere. At the incipient area of the stent, there were significant areas of stenosis. This was dilated with an 8-mm balloon with excellent cosmetic results. After this had been done, we then touched up inside the stent again, but then we had excellent flow. DESCRIPTION OF PROCEDURE: The patient was given general anesthesia. The right groin was prepped and the femoral dialysis catheter placed. Ultrasound images showed the vein was patent and was measured approximately 14 mm in diameter. After this had been done, we then reprepped and draped the right arm. We then punctured in a retrograde fashion the AV fistula. We took films demonstrating that the central venous circulation was open without any significant stenosis and that the arterial anastomosis was widely patent. After this had been done, the evident stenosis at the origin of the stent in the midportion of her fistula became evident and these were dilated with an 8-mm balloon successfully. Because the wire went down into the arm, we gave heparin and this required that we hold pressure for some time after the procedure had been terminated. A 6-Icelandic sheath was used and an 8-mm balloon. Blood loss for the procedure was 25 mL. Edward Finley Jr., MD cc: Gerry Velazquez MD
[2017-07-24] MEDS: Aritificial Tears (15ml) OU SCH (18:55)
[2017-07-24] MEDS: (Lantus) Insulin Glargine, Recombinant SC SCH (22:08)
[2017-07-25 06:37] LABS: ALBUMIN 4.2 g/dL (3.5-5.0); ALT/SGPT < 6 U/L (9-52); AST/SGOT 18 U/L (14-36); BLOOD UREA NITROGEN 35 mg/dL (7-17); CALCIUM 8.2 mg/dl (8.6-10.4); GFR AFRICAN-AMERICAN 8; GFR NON-AFRICAN AMERICAN 6
[2017-07-25] MEDS: (Novolog) Insulin Aspart, Recombinant 100 u/ml 10 ml vial SC SCH ×3 (07:37→17:10)
[2017-07-25] MEDS: Oxycodone/Acetaminophen 5/325 mg Tab PO PRN (08:09)
--- NOTE | 2017-07-25 09:27 | CP.PCM.PN ---
Subjective - Date & Time of Evaluation Date of Evaluation: 07/25/17 Time of Evaluation: 08:00 - Subjective Subjective: Surgery: Progress Note Pt seen and examined. No acute overnight events. Pt states she's doing well and still has some discomfort from the femoral catheter. Otherwise no complaints. Denies N/V, F/C. Objective - Vital Signs/Intake and Output Vital Signs (last 24 hours): Temp Pulse Resp BP Pulse Ox 98.5 F 79 20 147/62 95 07/25/17 07:22 07/25/17 07:22 07/25/17 07:22 07/25/17 07:22 07/25/17 07:22 Intake and Output: 07/25/17 07/25/17 06:59 18:59 Intake Total 200 Output Total 0 Balance 200 - Medications Medications: Current Medications Artificial Tears (Artificial Tears) 0 ml OU BID [facility] Last Admin: 07/24/17 18:55 Dose: 2 drop Cinacalcet (Sensipar) 90 mg PO DAILY [facility] Last Admin: 07/24/17 11:18 Dose: 90 mg Clonidine HCl (Catapres) 0.2 mg PO BID [facility] Last Admin: 07/24/17 18:55 Dose: 0.2 mg Cyclobenzaprine HCl (Flexeril) 5 mg PO [facility] Last Admin: 07/24/17 22:06 Dose: 5 mg Dextrose (Dextrose 50% Inj) 0 ml IV STAT PRN; Protocol PRN Reason: Hypoglycemia Protocol Dextrose (Glutose 15) 0 gm PO ONCE PRN; Protocol PRN Reason: Hypoglycemia Protocol Docusate Sodium (Colace) 100 mg PO BID [facility] Last Admin: 07/24/17 18:55 Dose: 100 mg Glucagon (Glucagen Diagnostic Kit) 0 mg IM STAT PRN; Protocol PRN Reason: Hypoglycemia Protocol Dextrose (Dextrose 5% In Water 1000 Ml) 1,000 mls @ 0 mls/hr IV .Q0M PRN; Protocol; Per Protocol PRN Reason: Hypoglycemia Protocol Sodium Chloride (Sodium Chloride 0.9%) 1,000 mls @ 75 mls/hr IV .[id number] [facility] Last Admin: 07/24/17 22:09 Dose: Not Given Insulin Aspart (Novolog) 4 unit SC AC [facility] Last Admin: 07/25/17 07:37 Dose: Not Given Insulin Glargine (Lantus) 6 unit SC [facility] Last Admin: 07/24/17 22:08 Dose: 6 units Labetalol HCl (Normodyne) 300 mg PO BID [facility] Last Admin: 07/24/17 18:55 Dose: 300 mg Minoxidil (Loniten) 10 mg PO BID [facility] Last Admin: 07/24/17 18:55 Dose: 10 mg Oxycodone/Acetaminophen (Percocet 5/325 Mg Tab) 1 tab PO Q4H PRN PRN Reason: Pain, moderate (4-7) Stop: 07/27/17 10:01 Last Admin: 07/25/17 08:09 Dose: 1 tab Pantoprazole Sodium (Protonix Ec Tab) 40 mg PO DAILY [facility] Last Admin: 07/24/17 11:18 Dose: 40 mg Pregabalin (Lyrica) 75 mg PO Q24H [facility] Last Admin: 07/25/17 01:04 Dose: 75 mg Sevelamer Carbonate (Renvela) 1,600 mg PO TIDCC [facility] Last Admin: 07/25/17 08:08 Dose: 1,600 mg - Labs Labs: 07/23/17 07:07 07/25/17 06:17 PT 11.6 SECONDS (9.7-12.2) 07/23/17 07:07 INR 1.0 07/23/17 07:07 APTT 32 SECONDS (21-34) 07/23/17 07:17 - Constitutional Appears: Well, No Acute Distress - Head Exam Head Exam: ATRAUMATIC, NORMOCEPHALIC - Eye Exam Eye Exam: Normal appearance - ENT Exam ENT Exam: Mucous Membranes Moist - Respiratory Exam Respiratory Exam: NORMAL BREATHING PATTERN - Cardiovascular Exam Cardiovascular Exam: RRR - GI/Abdominal Exam GI & Abdominal Exam: Soft. absent: Tenderness - Extremities Exam Additional comments: R femoral HD cath in place, dressing C/D/I - Neurological Exam Neurological Exam: Alert, Awake, Oriented x3 - Skin Skin Exam: Dry, Warm Assessment and Plan - Assessment and Plan (Free Text) Assessment: 42F with ESRD, s/p fistulogram & angioplasty of stenotic R AVF & femoral dialysis catheter Plan: - ok to use AVF for HD; once working femoral catheter can be removed - no further surgical intervention at this time - d/w Dr. Tushar Coffman, PGY-3
[2017-07-25] MEDS: Labetalol Hydrochloride 300 mg Tab PO SCH ×2 (09:43→18:29)
[2017-07-25] MEDS: Pantoprazole 40 mg EC Tab PO SCH (09:43)
--- NOTE | 2017-07-25 10:10 | CP.PCM.PN ---
Subjective - Date & Time of Evaluation Date of Evaluation: 07/25/17 Time of Evaluation: 10:06 - Subjective Subjective: s/p angioplasty AV access used fem cath for dialysis 07/24- UF 2500ml only c/o fem cath pains no n, v, f, chill,, SOB HTN controlled Objective - Vital Signs/Intake and Output Vital Signs (last 24 hours): Temp Pulse Resp BP Pulse Ox 98.5 F 79 20 147/62 95 07/25/17 07:22 07/25/17 07:22 07/25/17 07:22 07/25/17 07:22 07/25/17 07:22 Intake and Output: 07/25/17 07/25/17 06:59 18:59 Intake Total 200 Output Total 0 Balance 200 - Medications Medications: Current Medications Artificial Tears (Artificial Tears) 0 ml OU BID [facility] Last Admin: 07/24/17 18:55 Dose: 2 drop Cinacalcet (Sensipar) 90 mg PO DAILY [facility] Last Admin: 07/25/17 09:43 Dose: 90 mg Clonidine HCl (Catapres) 0.2 mg PO BID [facility] Last Admin: 07/25/17 09:43 Dose: 0.2 mg Cyclobenzaprine HCl (Flexeril) 5 mg PO [facility] Last Admin: 07/24/17 22:06 Dose: 5 mg Dextrose (Dextrose 50% Inj) 0 ml IV STAT PRN; Protocol PRN Reason: Hypoglycemia Protocol Dextrose (Glutose 15) 0 gm PO ONCE PRN; Protocol PRN Reason: Hypoglycemia Protocol Docusate Sodium (Colace) 100 mg PO BID [facility] Last Admin: 07/25/17 09:43 Dose: 100 mg Glucagon (Glucagen Diagnostic Kit) 0 mg IM STAT PRN; Protocol PRN Reason: Hypoglycemia Protocol Dextrose (Dextrose 5% In Water 1000 Ml) 1,000 mls @ 0 mls/hr IV .Q0M PRN; Protocol; Per Protocol PRN Reason: Hypoglycemia Protocol Sodium Chloride (Sodium Chloride 0.9%) 1,000 mls @ 75 mls/hr IV .[id number] [facility] Last Admin: 07/24/17 22:09 Dose: Not Given Insulin Aspart (Novolog) 4 unit SC AC [facility] Last Admin: 07/25/17 07:37 Dose: Not Given Insulin Glargine (Lantus) 6 unit SC [facility] Last Admin: 07/24/17 22:08 Dose: 6 units Labetalol HCl (Normodyne) 300 mg PO BID [facility] Last Admin: 07/25/17 09:43 Dose: 300 mg Minoxidil (Loniten) 10 mg PO BID [facility] Last Admin: 07/25/17 09:43 Dose: 10 mg Oxycodone/Acetaminophen (Percocet 5/325 Mg Tab) 1 tab PO Q4H PRN PRN Reason: Pain, moderate (4-7) Stop: 07/27/17 10:01 Last Admin: 07/25/17 08:09 Dose: 1 tab Pantoprazole Sodium (Protonix Ec Tab) 40 mg PO DAILY [facility] Last Admin: 07/25/17 09:43 Dose: 40 mg Pregabalin (Lyrica) 75 mg PO Q24H [facility] Last Admin: 07/25/17 01:04 Dose: 75 mg Sevelamer Carbonate (Renvela) 1,600 mg PO TIDCC [facility] Last Admin: 07/25/17 08:08 Dose: 1,600 mg - Labs Labs: 07/23/17 07:07 07/25/17 06:17 PT 11.6 SECONDS (9.7-12.2) 07/23/17 07:07 INR 1.0 07/23/17 07:07 APTT 32 SECONDS (21-34) 07/23/17 07:17 - Constitutional Appears: No Acute Distress, Chronically Ill - Head Exam Head Exam: ATRAUMATIC, NORMAL INSPECTION - Eye Exam Eye Exam: EOMI, Normal appearance - Neck Exam Neck Exam: Normal Inspection. absent: Tenderness - Respiratory Exam Respiratory Exam: Clear to Ausculation Bilateral, NORMAL BREATHING PATTERN - Cardiovascular Exam Cardiovascular Exam: REGULAR RHYTHM, +S1 - GI/Abdominal Exam GI & Abdominal Exam: Soft. absent: Tenderness - Extremities Exam Extremities Exam: Normal Inspection. absent: Tenderness - Neurological Exam Neurological Exam: Awake, CN II-XII Intact - Skin Skin Exam: Dry, Warm Assessment and Plan (1) Arteriovenous shunt malfunction Status: Acute (2) ESRD (end stage renal disease) on dialysis Status: Acute (3) CHF (congestive heart failure) Status: Acute (4) Hypertensive chronic kidney disease with stage 5 chronic kidney disease or end stage renal disease Status: Acute - Assessment and Plan (Free Text) Plan: use fem cath at dialysis 07/26 then d/c fem cath post dialysis AV F appears patent and viable at present
[2017-07-25] MEDS: Aritificial Tears (15ml) OU SCH ×2 (10:43→18:30)
[2017-07-25] MEDS: Sodium Chloride 0.9% 1,000 ML IV SCH (11:31)
--- NOTE | 2017-07-25 11:48 | CP.PCM.PN ---
<Fred Celaya - Last Filed: 07/25/17 16:42> Subjective - Date & Time of Evaluation Date of Evaluation: 07/25/17 Time of Evaluation: 07:00 - Subjective Subjective: PGY1 Medicine Note for Dr. Griffin Fofana Patient seen and examined this morning at bedside. No acute events overnight. Patient is sitting on the side of her bed eating breakfast. She also reports a problem getting her lyrica last night so she was experiencing increased numbness in her arms and hands. She eventually did get her medication and the numbness has improved. She is in good spirits today stating that she hopes her fistula works tomorrow because she is uncomfortable having the HD catheter in her groin and would like to go home. Otherwise, patient has no complaints today. She states her eyes are no longer itching. Denied fevers, chills, nausea , vomiting, diarrhea, constipation, chest pain, shortness of breath, abdominal pain or headaches. Objective - Vital Signs/Intake and Output Vital Signs (last 24 hours): Temp Pulse Resp BP Pulse Ox 98.5 F 79 20 147/62 95 07/25/17 07:22 07/25/17 07:22 07/25/17 07:22 07/25/17 07:22 07/25/17 07:22 Intake and Output: 07/25/17 07/25/17 06:59 18:59 Intake Total 200 Output Total 0 Balance 200 - Medications Medications: Current Medications Artificial Tears (Artificial Tears) 0 ml OU BID [facility] Last Admin: 07/25/17 10:43 Dose: 2 drop Cinacalcet (Sensipar) 90 mg PO DAILY [facility] Last Admin: 07/25/17 09:43 Dose: 90 mg Clonidine HCl (Catapres) 0.2 mg PO BID [facility] Last Admin: 07/25/17 09:43 Dose: 0.2 mg Cyclobenzaprine HCl (Flexeril) 5 mg PO HS [facility] Last Admin: 07/24/17 22:06 Dose: 5 mg Dextrose (Dextrose 50% Inj) 0 ml IV STAT PRN; Protocol PRN Reason: Hypoglycemia Protocol Dextrose (Glutose 15) 0 gm PO ONCE PRN; Protocol PRN Reason: Hypoglycemia Protocol Docusate Sodium (Colace) 100 mg PO BID [facility] Last Admin: 07/25/17 09:43 Dose: 100 mg Glucagon (Glucagen Diagnostic Kit) 0 mg IM STAT PRN; Protocol PRN Reason: Hypoglycemia Protocol Dextrose (Dextrose 5% In Water 1000 Ml) 1,000 mls @ 0 mls/hr IV .Q0M PRN; Protocol; Per Protocol PRN Reason: Hypoglycemia Protocol Sodium Chloride (Sodium Chloride 0.9%) 1,000 mls @ 75 mls/hr IV .[id number] [facility] Last Admin: 07/24/17 22:09 Dose: Not Given Insulin Aspart (Novolog) 4 unit SC AC [facility] Last Admin: 07/25/17 11:27 Dose: Not Given Insulin Glargine (Lantus) 6 unit SC HS [facility] Last Admin: 07/24/17 22:08 Dose: 6 units Labetalol HCl (Normodyne) 300 mg PO BID [facility] Last Admin: 07/25/17 09:43 Dose: 300 mg Minoxidil (Loniten) 10 mg PO BID [facility] Last Admin: 07/25/17 09:43 Dose: 10 mg Oxycodone/Acetaminophen (Percocet 5/325 Mg Tab) 1 tab PO Q4H PRN PRN Reason: Pain, moderate (4-7) Stop: 07/27/17 10:01 Last Admin: 07/25/17 08:09 Dose: 1 tab Pantoprazole Sodium (Protonix Ec Tab) 40 mg PO DAILY [facility] Last Admin: 07/25/17 09:43 Dose: 40 mg Pregabalin (Lyrica) 75 mg PO Q24H [facility] Last Admin: 07/25/17 01:04 Dose: 75 mg Sevelamer Carbonate (Renvela) 1,600 mg PO TIDCC [facility] Last Admin: 07/25/17 08:08 Dose: 1,600 mg - Labs Labs: 07/23/17 07:07 07/25/17 06:17 PT 11.6 SECONDS (9.7-12.2) 07/23/17 07:07 INR 1.0 07/23/17 07:07 APTT 32 SECONDS (21-34) 07/23/17 07:17 - Constitutional Appears: Non-toxic, No Acute Distress - Head Exam Head Exam: ATRAUMATIC, NORMOCEPHALIC - Eye Exam Eye Exam: Conjunctival injection (improving), EOMI - ENT Exam ENT Exam: Mucous Membranes Moist - Respiratory Exam Respiratory Exam: Clear to Ausculation Bilateral, NORMAL BREATHING PATTERN. absent: Accessory Muscle Use, Rales, Rhonchi, Wheezes, Respiratory Distress - Cardiovascular Exam Cardiovascular Exam: REGULAR RHYTHM, +S1, +S2 - GI/Abdominal Exam GI & Abdominal Exam: Soft, Normal Bowel Sounds. absent: Distended, Firm, Guarding, Rigid, Tenderness - Exam Additional comments: Right femoral dialysis catheter. - Extremities Exam Extremities Exam: absent: Calf Tenderness, Pedal Edema Additional comments: Right arm AV fistula with palpable thrill. - Back Exam Back Exam: absent: CVA tenderness (L) - Neurological Exam Neurological Exam: Alert, Awake, Oriented x3 Neuro motor strength exam: Left Upper Extremity: 5, Right Upper Extremity: 5, Left Lower Extremity: 5, Right Lower Extremity: 5 - Psychiatric Exam Psychiatric exam: Normal Affect, Normal Mood - Skin Skin Exam: Dry, Warm Assessment and Plan - Assessment and Plan (Free Text) Plan: Right AV shunt clot * Vascular Surgery consult, Dr Finley. Will follow recommendations. * Dr Finley to place temporary dialysis access today at 5PM 07/23/17 * IR Consult: Dr. Stacy --> help appreciated * s/p placement of right femoral dialysis catheter. fisulagram right arm, balloon angioplasty of [place] stent stenosis * Do not use fistula until Saturday. Use femoral dialysis cath for dialysis today. ESRD on HD MWF * 2/2 to diabetic nephropathy * Nephrology consult, Dr. Velazquez on board--> help appreciated * Continue Sensipar 90mg PO Daily [facility] * Continue Sevelamer 1600mg TIDCC DM, Type 1 * Hemoglobin A1c (2017): 7.2 * repeat A1c 6.4 * Novolog 4 Units AC * Lantus 6 Units HS * Accuchecks * Hypoglycemia Protocol Hypertension--Chronic * Labetolol 300 PO twice daily * Minoxidil 10mg PO BID * Clonidine 0.2mg PO BID * ESRD on dialysis * monitor Hx of Parasthesia/Neuropathic pain (Hands, Arm, Neck) * Lyrica 75mg PO HS * Cyclobenzaprine 5mg HS [facility] Conjunctival Injection Artificial Tears 2 drops OU BID Hx of GERD * Protonix 40mg PO daily Hx of CVA Hx of Depression Prophylaxis * Protonix 40mg PO QD * colace 100mg PO daily * Heparin 5000u SC Q8H * SCDs DISPO: Patient's fistula is not able to be used until Saturday's dialysis session. Will keep patient until Saturday and attempt to use fistula. If successful, will remove femoral catheter and discharge patient after dialysis on Saturday. Case discussed with Dr. Griffin Celaya PGY1 <Rosendo Fofana - Last Filed: 07/25/17 18:54> Objective - Vital Signs/Intake and Output Vital Signs (last 24 hours): Temp Pulse Resp BP Pulse Ox 98.5 F 79 20 147/62 95 07/25/17 07:22 07/25/17 07:22 07/25/17 07:22 07/25/17 07:22 07/25/17 07:22 Intake and Output: 07/25/17 07/25/17 06:59 18:59 Intake Total 200 200 Output Total 0 Balance 200 200 - Medications Medications: Current Medications Artificial Tears (Artificial Tears) 0 ml OU BID [facility] Last Admin: 07/25/17 18:30 Dose: 2 drop Cinacalcet (Sensipar) 90 mg PO DAILY [facility] Last Admin: 07/25/17 09:43 Dose: 90 mg Clonidine HCl (Catapres) 0.2 mg PO BID [facility] Last Admin: 07/25/17 18:30 Dose: 0.2 mg Cyclobenzaprine HCl (Flexeril) 5 mg PO HS [facility] Last Admin: 07/24/17 22:06 Dose: 5 mg Dextrose (Dextrose 50% Inj) 0 ml IV STAT PRN; Protocol PRN Reason: Hypoglycemia Protocol Dextrose (Glutose 15) 0 gm PO ONCE PRN; Protocol PRN Reason: Hypoglycemia Protocol Docusate Sodium (Colace) 100 mg PO BID [facility] Last Admin: 07/25/17 18:30 Dose: 100 mg Glucagon (Glucagen Diagnostic Kit) 0 mg IM STAT PRN; Protocol PRN Reason: Hypoglycemia Protocol Dextrose (Dextrose 5% In Water 1000 Ml) 1,000 mls @ 0 mls/hr IV .Q0M PRN; Protocol; Per Protocol PRN Reason: Hypoglycemia Protocol Sodium Chloride (Sodium Chloride 0.9%) 1,000 mls @ 75 mls/hr IV .[id number] [facility] Last Admin: 07/25/17 11:31 Dose: Not Given Insulin Aspart (Novolog) 4 unit SC AC [facility] Last Admin: 07/25/17 17:10 Dose: 4 unit Insulin Glargine (Lantus) 6 unit SC HS [facility] Last Admin: 07/24/17 22:08 Dose: 6 units Labetalol HCl (Normodyne) 300 mg PO BID [facility] Last Admin: 07/25/17 18:29 Dose: 300 mg Minoxidil (Loniten) 10 mg PO BID [facility] Last Admin: 07/25/17 18:30 Dose: 10 mg Pantoprazole Sodium (Protonix Ec Tab) 40 mg PO DAILY [facility] Last Admin: 07/25/17 09:43 Dose: 40 mg Pregabalin (Lyrica) 75 mg PO Q24H [facility] Last Admin: 07/25/17 01:04 Dose: 75 mg Sevelamer Carbonate (Renvela) 1,600 mg PO TIDCC [facility] Last Admin: 07/25/17 17:50 Dose: 1,600 mg Sodium Chloride ([place] Baby Saline 30 Ml) 1 ml NEIL BID PRN PRN Reason: Dry nasal passages Last Admin: 07/25/17 14:44 Dose: 1 spr - Labs Labs: 07/23/17 07:07 07/25/17 06:17 PT 11.6 SECONDS (9.7-12.2) 07/23/17 07:07 INR 1.0 07/23/17 07:07 APTT 32 SECONDS (21-34) 07/23/17 07:17 Attending/Attestation - Attestation I have personally seen and examined this patient.: Yes I have fully participated in the care of the patient.: Yes I have reviewed all pertinent clinical information, including history, physical exam and plan: Yes Notes (Text): 07/25/17 18:53 Patient was seen and examined at 12:30 PM 07/25/17 350 A. Exam, assessment and plan were gone over with the resident. Also on ROS: She moved her bowels 07/24/17 but stool was hard She will receive HD on 07/26/17 through the Right Arm AV Fistula and if NO issues , then will discharge patient to home. Rosendo Fofana D.O.
[2017-07-25] MEDS ORDERED: Sodium Chloride Nasal 0.65% Soln (30ml) NAS PRN (14:00)
[2017-07-25] MEDS: (Lantus) Insulin Glargine, Recombinant SC SCH (21:47)
[2017-07-26] MEDS ORDERED: Oxycodone/Acetaminophen 5/325 mg Tab PO ONE (01:15)
[2017-07-26] MEDS: Sodium Chloride 0.9% 1,000 ML IV SCH (02:48)
[2017-07-26] MEDS: (Novolog) Insulin Aspart, Recombinant 100 u/ml 10 ml vial SC SCH ×3 (07:30→18:11)
[2017-07-26 09:32] LABS: BASO # 0.1 K/uL (0.0-0.2); BASO % 1.7 % (0.0-2.0); EOS # 0.3 K/uL (0.0-0.7); HEMOGLOBIN 10.6 g/dL (11.0-16.0); LYMPH # 1.8 K/uL (1.0-4.3); LYMPH % 32.6 % (20.0-40.0); MEAN CELL VOLUME 90.7 fL (81.0-99.0); MEAN CORPUSCULAR HEMOGLOBIN 30.3 pg (27.0-31.0); MEAN CORPUSCULAR HGB CONC 33.4 g/dL (33.0-37.0); MEAN PLATELET VOLUME 11.7 fL (7.2-11.7); MONO # 0.5 K/uL (0.0-0.8); NEUT # 2.8 K/uL (1.8-7.0); NEUT % 50.7 % (50.0-75.0); RBC 3.49 Mil/uL (3.80-5.20); RED CELL DISTRIBUTION WIDTH 14.1 % (11.5-14.5); WHITE BLOOD COUNT 5.6 K/uL (4.8-10.8)
[2017-07-26 09:52] LABS: ALB/GLOB RATIO 1.2 (1.0-2.1); ALBUMIN 4.2 g/dL (3.5-5.0); ALT/SGPT < 6 U/L (9-52); AST/SGOT 20 U/L (14-36); BLOOD UREA NITROGEN 56 mg/dL (7-17); GFR AFRICAN-AMERICAN 6; GFR NON-AFRICAN AMERICAN 5
[2017-07-26] MEDS: Aritificial Tears (15ml) OU SCH ×2 (10:00→18:10)
[2017-07-26] MEDS: Labetalol Hydrochloride 300 mg Tab PO SCH ×3 (10:00→18:11)
[2017-07-26] MEDS: Pantoprazole 40 mg EC Tab PO SCH (10:00)
--- NOTE | 2017-07-26 13:11 | CP.PCM.PN ---
Subjective - Date & Time of Evaluation Date of Evaluation: 07/26/17 Time of Evaluation: 13:08 - Subjective Subjective: Seen at dialysis now BP lower phos elevated, Ca low AV access working ok- will eventually need revision Objective - Vital Signs/Intake and Output Vital Signs (last 24 hours): Temp Pulse Resp BP Pulse Ox 97.9 F 70 15 118/52 L 98 07/26/17 09:15 07/26/17 12:30 07/26/17 10:30 07/26/17 12:30 07/26/17 09:15 Intake and Output: 07/26/17 07/26/17 06:59 18:59 Intake Total 200 Output Total 0 Balance 200 - Medications Medications: Current Medications Artificial Tears (Artificial Tears) 0 ml OU BID [facility] Last Admin: 07/25/17 18:30 Dose: 2 drop Calcium Acetate (Phoslo) 667 mg PO TID [facility] Cinacalcet (Sensipar) 90 mg PO DAILY [facility] Last Admin: 07/25/17 09:43 Dose: 90 mg Clonidine HCl (Catapres) 0.1 mg PO BID [facility] Cyclobenzaprine HCl (Flexeril) 5 mg PO HS [facility] Last Admin: 07/25/17 21:46 Dose: 5 mg Dextrose (Dextrose 50% Inj) 0 ml IV STAT PRN; Protocol PRN Reason: Hypoglycemia Protocol Dextrose (Glutose 15) 0 gm PO ONCE PRN; Protocol PRN Reason: Hypoglycemia Protocol Docusate Sodium (Colace) 100 mg PO BID [facility] Last Admin: 07/25/17 18:30 Dose: 100 mg Glucagon (Glucagen Diagnostic Kit) 0 mg IM STAT PRN; Protocol PRN Reason: Hypoglycemia Protocol Dextrose (Dextrose 5% In Water 1000 Ml) 1,000 mls @ 0 mls/hr IV .Q0M PRN; Protocol; Per Protocol PRN Reason: Hypoglycemia Protocol Sodium Chloride (Sodium Chloride 0.9%) 1,000 mls @ 75 mls/hr IV .[id number] [facility] Last Admin: 07/26/17 02:48 Dose: Not Given Insulin Aspart (Novolog) 4 unit SC AC [facility] Last Admin: 07/25/17 17:10 Dose: 4 unit Insulin Glargine (Lantus) 6 unit SC HS [facility] Last Admin: 07/25/17 21:47 Dose: 6 units Labetalol HCl (Normodyne) 300 mg PO BID [facility] Last Admin: 07/25/17 18:29 Dose: 300 mg Minoxidil (Loniten) 10 mg PO BID [facility] Last Admin: 07/25/17 18:30 Dose: 10 mg Pantoprazole Sodium (Protonix Ec Tab) 40 mg PO DAILY [facility] Last Admin: 07/25/17 09:43 Dose: 40 mg Pregabalin (Lyrica) 75 mg PO Q24H [facility] Last Admin: 07/25/17 21:47 Dose: 75 mg Sevelamer Carbonate (Renvela) 1,600 mg PO TIDCC [facility] Last Admin: 07/25/17 17:50 Dose: 1,600 mg Sodium Chloride ([place] Baby Saline 30 Ml) 1 ml NEIL BID PRN PRN Reason: Dry nasal passages Last Admin: 07/25/17 14:44 Dose: 1 spr - Labs Labs: 07/26/17 09:29 07/26/17 09:29 PT 11.6 SECONDS (9.7-12.2) 07/23/17 07:07 INR 1.0 07/23/17 07:07 APTT 32 SECONDS (21-34) 07/23/17 07:17 - Constitutional Appears: No Acute Distress, Chronically Ill - Head Exam Head Exam: ATRAUMATIC, NORMAL INSPECTION - Eye Exam Eye Exam: EOMI, Normal appearance - Neck Exam Neck Exam: Normal Inspection. absent: Tenderness - Respiratory Exam Respiratory Exam: Clear to Ausculation Bilateral, NORMAL BREATHING PATTERN - Cardiovascular Exam Cardiovascular Exam: REGULAR RHYTHM, +S1 - GI/Abdominal Exam GI & Abdominal Exam: Soft. absent: Tenderness - Extremities Exam Extremities Exam: Normal Inspection. absent: Pedal Edema - Neurological Exam Neurological Exam: Alert, CN II-XII Intact - Skin Skin Exam: Dry, Warm Assessment and Plan (1) Arteriovenous shunt malfunction Status: Acute (2) ESRD (end stage renal disease) on dialysis Status: Acute (3) CHF (congestive heart failure) Status: Acute (4) Hypertensive chronic kidney disease with stage 5 chronic kidney disease or end stage renal disease Status: Acute - Assessment and Plan (Free Text) Plan: Same HD MWF UF 2500ml Lower BP meds remove fem cath post HD Eventually needs AV access revision
--- NOTE | 2017-07-26 14:52 | CP.PCM.DIS ---
Provider - Provider Date of Admission: 07/24/17 16:30 Attending physician: Rosendo Fofana MD Consults: Vascular Surg - Tow [place] - Regis Nephro - Marcus Time Spent in preparation of Discharge (in minutes): 45 Hospital Course - Lab Results Lab Results: Most Recent Lab Values WBC 5.6 K/uL (4.8-10.8) 07/26/17 09: RBC 3.49 Mil/uL (3.80-5.20) L 07/26/17 09:29 Hgb 10.6 g/dL (11.0-16.0) L 07/26/17 09: Hct 31.7 % (34.0-47.0) L 07/26/17 09: MCV 90.7 fL (81.0-99.0) 07/26/17 09: MCH 30.3 pg (27.0-31.0) 07/26/17 09: MCHC 33.4 g/dL (33.0-37.0) 07/26/17 09: RDW 14.1 % (11.5-14.5) 07/26/17 09: Plt Count 91 K/uL (130-400) L D 07/26/17 09: MPV 11.7 fL (7.2-11.7) 07/26/17 09: Neut % (Auto) 50.7 % (50.0-75.0) 07/26/17 09: Lymph % (Auto) 32.6 % (20.0-40.0) 07/26/17 09: [place] % (Auto) 9.0 % (0.0-10.0) 07/26/17 09: Eos % (Auto) 6.0 % (0.0-4.0) H 07/26/17 09: Baso % (Auto) 1.7 % (0.0-2.0) 07/26/17 09: Neut # (Auto) 2.8 K/uL (1.8-7.0) 07/26/17 09: Lymph # (Auto) 1.8 K/uL (1.0-4.3) 07/26/17 09: [place] # (Auto) 0.5 K/uL (0.0-0.8) 07/26/17 09:29 Eos # (Auto) 0.3 K/uL (0.0-0.7) 07/26/17 09:29 Baso # (Auto) 0.1 K/uL (0.0-0.2) 07/26/17 09:29 Differential Comment 07/26/17 09:29 PT 11.6 SECONDS (9.7-12.2) 07/23/17 07:07 INR 1.0 07/23/17 07:07 APTT 32 SECONDS (21-34) 07/23/17 07:17 Sodium 137 mmol/L (132-148) 07/26/17 09:29 Potassium 5.5 mmol/L (3.6-5.2) H 07/26/17 09:29 Chloride 97 mmol/L (98-107) L 07/26/17 09:29 Carbon Dioxide 21 mmol/L (22-30) L 07/26/17 09:29 Anion Gap 26 (10-20) H 07/26/17 09:29 BUN 56 mg/dL (7-17) H 07/26/17 09:29 Creatinine 8.5 mg/dL (0.7-1.2) H* D 07/26/17 09:29 Est GFR ( Amer) 6 07/26/17 09:29 Est GFR (Non-Af Amer) 5 07/26/17 09:29 POC Glucose (mg/dL) 97 mg/dL (65-110) 07/26/17 11:03 Random Glucose 96 mg/dL (65-105) 07/26/17 09:29 Hemoglobin A1c 6.4 % (4.2-6.5) 07/23/17 07:07 Calcium 8.0 mg/dl (8.6-10.4) L 07/26/17 09:29 Phosphorus 6.0 mg/dL (2.5-4.5) H 07/26/17 09:29 Magnesium 2.1 mg/dL (1.6-2.3) 07/26/17 09:29 Total Bilirubin 0.5 mg/dL (0.2-1.3) 07/26/17 09:29 AST 20 U/L (14-36) 07/26/17 09:29 ALT < 6 U/L (9-52) L 07/26/17 09:29 Alkaline Phosphatase 86 U/L (38-126) 07/26/17 09:29 Total Protein 7.8 g/dL (6.3-8.3) 07/26/17 09:29 Albumin 4.2 g/dL (3.5-5.0) 07/26/17 09:29 Globulin 3.6 gm/dL (2.2-3.9) 07/26/17 09:29 Albumin/Globulin Ratio 1.2 (1.0-2.1) 07/26/17 09:29 Beta HCG, Quant < 2.39 mIU/ML 07/24/17 07:19 Discharge Exam - Head Exam Head Exam: ATRAUMATIC, NORMAL INSPECTION Discharge Plan - Discharge Medications Prescriptions: Cinacalcet [Sensipar] 90 mg PO DAILY #90 tab cloNIDine [Catapres] 0.2 mg PO BID #60 tab Cyclobenzaprine [Flexeril] 5 mg PO QPM #30 tab Docusate Sodium [Colace] 100 mg PO BID PRN #30 capsule PRN Reason: Constipation Esomeprazole Magnesium [Nexium] 40 mg PO DAILY #30 capsule. Insulin Aspart, Recombinant [Novolog] 4 unit SC ACTID #1 bottle Insulin Glargine, Recombina [Lantus] 6 unit SC HS #1 bottle Labetalol Hydrochloride [Normodyne] 300 mg PO BID #60 tab Minoxidil [Loniten] 10 mg PO BID #60 tab Pregabalin [Lyrica Cr] 82.5 mg PO HS #30 tab.er.24h Sevelamer Carbonate [Renvela] 1,600 mg PO TIDCC #90 tab - Follow Up Plan Condition: STABLE Disposition: HOME/ ROUTINE Additional Instructions: These instructions are to be printed and a copy given to the patient upon discharge: 1.) Patient is to be discharge home per Dr. Rosendo Fofana 2.) Please continue with your current Hemodialysis schedule @[facility] on Saturday- Saturday-Saturday. 3.) Please follow up with the [facility] in the next 7-10 days. Call for an appointment. The clinic is located in the basement ( floor B) of [facility]. 4.) Take only the medications that we have provided prescriptions for. 5.) May place ice bag over hemodialysis access site of your right groin area for 30 minutes every 4 hours as needed for pain. 6.) May use over the counter Visine Drops for eyes. 7.) Take care and stay well. Referrals: [facility] [Outside]
[2017-07-26 16:53] VITALS: RESP 20; TEMP 98.4; O2SAT 97
[2017-07-26 20:40] VITALS: BP 166/60; PULSE 75
== END 2017-07-26 20:45 | disposition home or self-care (01) | DRG 252 ==
LOC: C.ER 19:26 → C.9E 20:41 → C.3T 20:41 → OBSVTOIN 07-24 16:30
PROVIDERS: ADMIT Family Medicine; ATTEND Family Medicine
PROC: 037Y3ZZ Dilation of Upper Artery, Percutaneous Approach (ICD-10-PCS; principal; 2017-07-24 07:45)
PROC: 06HY33Z Insertion of Infusion Device into Lower Vein, Percutaneous Approach (ICD-10-PCS; 2017-07-24 07:45)
PROC: 5A1D70Z Performance of Urinary Filtration, Intermittent, Less than 6 Hours Per Day (ICD-10-PCS; 2017-07-26)
DX: T82.868A Thrombosis due to vascular prosthetic devices, implants and grafts, initial encounter (principal); N18.6 End stage renal disease; I13.2 Hypertensive heart and chronic kidney disease with heart failure and with stage 5 chronic kidney disease, or end stage renal disease; Y83.2 Surgical operation with anastomosis, bypass or graft as the cause of abnormal reaction of the patient, or of later complication, without mention of misadventure at the time of the procedure; E10.21 Type 1 diabetes mellitus with diabetic nephropathy; E10.40 Type 1 diabetes mellitus with diabetic neuropathy, unspecified; E10.22 Type 1 diabetes mellitus with diabetic chronic kidney disease; E78.5 Hyperlipidemia, unspecified; I50.9 Heart failure, unspecified; K21.9 Gastro-esophageal reflux disease without esophagitis; Z79.4 Long term (current) use of insulin; Z86.73 Personal history of transient ischemic attack (TIA), and cerebral infarction without residual deficits; Z99.2 Dependence on renal dialysis

== ENCOUNTER 2017-09-20 16:57 | Observation (INO) | payer MEDICAID, MEDICARE ==
[2017-09-20 17:07] VITALS: BMI 22.4
[2017-09-20] MEDS ORDERED: Alum-Mag Hydrox-Simethicone Susp (30 mL) PO STA (17:33)
[2017-09-20] MEDS ORDERED: Alum-Mag Hydrox-Simethicone Susp (30 mL) ONE (17:41)
[2017-09-20 18:10] LABS: BASO # 0.1 K/uL (0.0-0.2); BASO % 1.4 % (0.0-2.0); EOS # 0.2 K/uL (0.0-0.7); EOS % 2.6 % (0.0-4.0); HEMOGLOBIN 11.4 g/dL (11.0-16.0); LYMPH # 1.6 K/uL (1.0-4.3); LYMPH % 24.4 % (20.0-40.0); MEAN CELL VOLUME 88.5 fL (81.0-99.0); MEAN CORPUSCULAR HEMOGLOBIN 30.7 pg (27.0-31.0); MEAN CORPUSCULAR HGB CONC 34.7 g/dL (33.0-37.0); MONO # 0.5 K/uL (0.0-0.8); MONO % 7.5 % (0.0-10.0); NEUT # 4.2 K/uL (1.8-7.0); NEUT % 64.1 % (50.0-75.0); RBC 3.71 Mil/uL (3.80-5.20); RED CELL DISTRIBUTION WIDTH 14.2 % (11.5-14.5); WHITE BLOOD COUNT 6.5 K/uL (4.8-10.8)
[2017-09-20 18:26] LABS: ALB/GLOB RATIO 1.1 (1.0-2.1); ALBUMIN 4.5 g/dL (3.5-5.0); CALCIUM 12.4 mg/dl (8.6-10.4)
[2017-09-20 18:37] LABS: TROPONIN I 0.02 ng/mL (0.00-0.120)
[2017-09-20] MEDS ORDERED: Aluminum Hydroxide/Magnesium Hydroxide Susp (30 mL) PO STA (19:30)
[2017-09-20] MEDS ORDERED: Aluminum Hydroxide/Magnesium Hydroxide Susp (30 mL) ONE (19:31)
--- NOTE | 2017-09-20 19:51 | C.PDOC ---
History Of Present Illness 42 year old female presents to the emergency department after being referred by her dialysis clinic. Patient reports that she was only able to complete one hour of the normal three hours of dialysis, which she attends three times a week on Mondays, Wednesdays, and Fridays. Patient reports that she was experiencing leg cramp, abdominal pain, and acid reflux. Patient reports that she has a history of acid reflux for which she has been taking Nexium, but has stopped a few months ago due to the fact that nobody refilled her prescription. Patient has been taking Tumbs with minimal relief. Time Seen by Provider: 09/20/17 17:23 Chief Complaint (Nursing): GI Problem History Per: Patient History/Exam Limitations: no limitations Onset/Duration Of Symptoms: Hrs Current Symptoms Are (Timing): Still Present Past Medical History Reviewed: Historical Data, Nursing Documentation, Vital Signs Vital Signs: Last Vital Signs Temp 97.9 F 09/20/17 21:25 Pulse 76 09/20/17 21:25 Resp 18 09/20/17 21:25 BP 153/63 H 09/20/17 21:25 Pulse Ox 98 09/20/17 21:25 - Medical History PMH: Anemia, Anxiety, Depression, Diabetes, Fractures (RT ANKLE), GERD, HTN, Pneumonia, End Stage Renal Disease (M-W-F), Chronic Kidney Disease, Seizures ( 2008) Denies: Kidney Stones Surgical History: No Surg Hx - [facility] Procedures (07/24/17) DILATION OF R BASILIC VEIN WITH INTRALUM DEV, PERC APPROACH (07/13/16) DILATION OF RIGHT BASILIC VEIN, PERCUTANEOUS APPROACH (05/03/17) DILATION OF UPPER ARTERY, PERCUTANEOUS APPROACH (07/24/17) EXTIRPATION OF MATTER FROM RIGHT BASILIC VEIN, PERC APPROACH (07/13/16) FLUOROSCOPY OF INF VENA CAVA USING L OSM CONTRAST, GUIDANCE (05/29/16) INDIVIDUAL PSYCHOTHERAPY, COGNITIVE-BEHAVIORAL (10/23/16) INDIVIDUAL PSYCHOTHERAPY, SUPPORTIVE (10/23/16) INSERTION OF INFUSION DEV INTO INF VENA CAVA, PERC APPROACH (05/29/16) INSERTION OF INFUSION DEV INTO SUP VENA CAVA, PERC APPROACH (07/13/16) INSERTION OF INFUSION DEVICE INTO LOWER VEIN, PERC APPROACH (07/24/17) INTRODUCE OTH THROMBOLYTIC IN PERIPH VEIN, PERC (07/13/16) PERFORMANCE OF URINARY FILTRATION, MULTIPLE (01/03/17) REMOVAL OF OTHER DEVICE ON RIGHT INGUINAL REGION (05/29/16) ULTRASONOGRAPHY OF INFERIOR VENA CAVA, GUIDANCE (07/13/16) Family History: States: Unknown Family Hx - Social History Hx Tobacco Use: Yes Hx Alcohol Use: No Hx Substance Use: No - Immunization History Hx Tetanus Toxoid Vaccination: No Hx Influenza Vaccination: Yes Hx Pneumococcal Vaccination: No Review Of Systems Except As Marked, All Systems Reviewed And Found Negative. Gastrointestinal: Positive for: Abdominal Pain, Other (acid reflux) Musculoskeletal: Positive for: Leg Pain Physical Exam - Physical Exam Appears: Non-toxic, No Acute Distress, Chronically Ill Skin: Warm, Dry, Other (fistula on arm) Head: Atraumatic Eye(s): bilateral: Normal Inspection Oral Mucosa: Moist Neck: Normal ROM, Supple Chest: Symmetrical Cardiovascular: Rhythm Regular Gastrointestinal/Abdominal: Normal Exam, Soft, No Tenderness, Other (obese) Extremity: Normal ROM, No Pedal Edema, No Swelling Extremity: Bilateral: Atraumatic Neurological/Psych: Oriented x3, Normal Speech, Normal Cognition ED Course And Treatment - Laboratory Results Result Diagrams: 09/20/17 18:06 09/20/17 18:06 Lab Interpretation: Abnormal (mild elev K 5.3, Hypercalcemia 12.4) ECG: Interpreted By Me ECG Rhythm: Sinus Rhythm ECG Interpretation: Normal Rate From EC O2 Sat by Pulse Oximetry: 100 (RA) Pulse Ox Interpretation: Normal - Radiology CXR: Interpreted by Me CXR Interpretation: Yes: No Acute Disease - Other Rad abd x 2 X-Ray: Interpreted by Me (+FOS) Progress Note: Protonix IV, Maalox Reevaluation Time: 19:49 Reassessment Condition: Improved - Physician Consult Information Outcome Of Conversation: 1944: d/w Dr. Rosendo Fofana, covering for Dr. Samantha miles to admit. Medical Decision Making Medical Decision Making: GERD Off nexium for "a few months" restart Maalox PRN ESRD on HD got only 1 hour today, long weekend mild elev K 5.3, no ekg changes consider repeat HD leg cramps Mg normal Ca+ 12.4 H May improve with HD Plan: EKG BNP HCG CMP Lipase Lipid Panel Magnesium Troponin CBC Disposition Doctor Will See Patient In The: Hospital Counseled Patient/Family Regarding: Studies Performed, Diagnosis - Disposition Disposition: HOSPITALIZED Disposition Time: 19:51 Condition: GOOD - Clinical Impression Clinical Impression: ESRD (end stage renal disease) on dialysis, Hyperkalemia, Hypercalcemia - Scribe Statement The provider has reviewed the documentation as recorded by the Scribe (Joe Tapia) Provider Attestation: All medical record entries made by the Scribe were at my direction and personally dictated by me. I have reviewed the chart and agree that the record accurately reflects my personal performance of the history, physical exam, medical decision making, and the department course for this patient. I have also personally directed, reviewed, and agree with the discharge instructions and disposition.
--- NOTE | 2017-09-20 20:01 | CP.PCM.HP ---
<Zoey Madrid - Last Filed: 09/20/17 23:06> History of Present Illness - History of Present Illness History of Present Illness: Medicine Note for Hospitalist Service- Dr. Leroy CC: chest pain, heart burn and bilateral lower extremity cramping during hemodialysis HPI: This is a 42 year old female with PMHx of HTN, T1DM (A1C 6.4 [07/2017]) with Paresthesia and Neuropathic pain, Hx CVA, ESRD on HD MWF with R AV Fistula , and GERD presents to the ED with chest pain, heart burn and bilateral lower extremity cramping during dialysis earlier today. The patient refused to finish her dialysis treatment after one liter was removed because of the cramping. She states that she normally gets 2-2.5 liters removed. Her usual dry weight after dialysis is 54 kg. She states that the leg cramping started last night and has been intermittent however became unbearable during dialysis. She states the leg cramping is worse when she is sitting still and is relieved when she moves or stands. She states that she simultaneously had heartburn during the episode of leg cramping. She states that she has not had much of an appetite and states that she has only had one bowl of oatmeal today. She states that she regurgitated two times today. She states that the regurgitated material was food and denies the presence of blood. She also states that her last bowel movement this morning was soft, however denies diarrhea and hematochezia. She states that she has bowel movements every other day usually. Patient states she had an endoscopy more than 5 years ago that showed a nonbleeding gastric ulcer. Patient admits to weakness, dizziness, lightheadedness, sore throat, and abdominal pain. Patient denies fevers, chills, ECHEVERRIA, vision changes, dysphagia, chest pain, palpitations, SOB, N, V, D, C, hematochezia. Past Medical History: HTN, T1DM (A1C 6.4 [07/2017]) with Paresthesia and Neuropathic pain, Hx CVA, ESRD on HD MWF with R AV Fistula, GERD, Depression Past Surgical History: B/l cataracts, R. retina surgery, AV shunt in R. arm, Embolectomy from R. LE, AV fistula left UE collapsed, s/p fisulagram right arm, balloon angioplasty of [place] stent stenosis (8 mm) 4/4/18 Medications: Novolog 4 units before meals, Lantus 6 units HS, Labetolol 300 mg PO BID, Minoxidil 10 mg PO BID, Clonidine 0.2 mg PO BID, Lyrica 50 mg PO HS, Sensipar 90 mg daily, Renvela 3 tabs TID, Nexium 40 mg daily, Crestor 10mg PO QHS Allergies: NKDA Social History: denies alcohol, smoking, or illicit drug use Family History: Mother - DM/ESRD; Dad - Heart problems, prostate cancer PMD: Dr. Holloway Present on Admission - Present on Admission Any Indicators Present on Admission: No Past Patient History - Infectious Disease Hx of Infectious Diseases: None - Past Medical History & Family History Past Medical History?: Yes - Past Social History Smoking Status: Never Smoked - CARDIAC Hx Hypertension: Yes - PULMONARY Hx Pneumonia: Yes - NEUROLOGICAL Hx Seizures: Yes (2008) - HEENT Hx HEENT Problems: Yes Hx Cataracts: Yes (HAD CUATE CATARACT SURGERY) - RENAL Hx Chronic Kidney Disease: Yes Hx Kidney Stones: No - ENDOCRINE/METABOLIC Hx Endocrine Disorders: Yes Hx Diabetes Mellitus Type 1: Yes - HEMATOLOGICAL/ONCOLOGICAL Hx Anemia: Yes - INTEGUMENTARY Hx Dermatological Problems: No - MUSCULOSKELETAL/RHEUMATOLOGICAL Hx Fractures: Yes (RT ANKLE) - GASTROINTESTINAL Hx Gastrointestinal Disorders: Yes Hx Ulcer: Yes - PSYCHIATRIC Hx Anxiety: Yes Hx Depression: Yes Hx Substance Use: No - SURGICAL HISTORY Hx Surgeries: Yes Hx Arteriovenous Shunt: Yes (NON FUNC MITZI, [place] SIDNEY) Hx Cataract Extraction: Yes Hx Eye Surgery: Yes (RETINA RT) Hx Vascular Access Device: Yes (LEFT AV FISTULA) - ANESTHESIA Hx Anesthesia: Yes Hx Anesthesia Reactions: No Hx Malignant Hyperthermia: No Meds Allergies/Adverse Reactions: Allergies Allergy/AdvReac Type Severity Reaction Status Date / Time No Known Allergies Allergy Verified 09/20/17 17:06 Physical Exam - Constitutional Appears: No Acute Distress, Chronically Ill - Head Exam Head Exam: NORMAL INSPECTION, NORMOCEPHALIC - Eye Exam Eye Exam: EOMI, Normal appearance, PERRL Pupil Exam: NORMAL ACCOMODATION - ENT Exam ENT Exam: Mucous Membranes Dry - Neck Exam Neck exam: Positive for: Normal Inspection - Respiratory Exam Respiratory Exam: Rales, NORMAL BREATHING PATTERN - Cardiovascular Exam Cardiovascular Exam: REGULAR RHYTHM, Systolic Murmur - GI/Abdominal Exam GI & Abdominal Exam: Distended (patient reports this is her baseline ), Normal Bowel Sounds, Soft, Tenderness Additional comments: LLQ - Rectal Exam Rectal Exam: Deferred - Extremities Exam Extremities exam: Positive for: normal inspection, pedal pulses present. Negative for: pedal edema, tenderness - Neurological Exam Neurological exam: Alert, CN II-XII Intact, Oriented x3 - Psychiatric Exam Psychiatric exam: Normal Affect, Normal Mood - Skin Skin Exam: Dry, Intact, Normal Color, Warm Results - Vital Signs Recent Vital Signs: Last Vital Signs Temp 98.6 F 09/20/17 17:07 Pulse 84 09/20/17 17:07 Resp 18 09/20/17 17:07 BP 111/55 L 09/20/17 17:07 Pulse Ox 100 09/20/17 19:52 - Labs Result Diagrams: 09/20/17 18:06 09/20/17 18:06 Labs: Laboratory Results - last 24 hr 09/20/17 09/20/17 09/20/17 18:06 18:06 18:06 WBC 6.5 RBC 3.71 L Hgb 11.4 Hct 32.9 L MCV 88.5 D MCH 30.7 MCHC 34.7 RDW 14.2 Plt Count 137 MPV 12.0 H Neut % (Auto) 64.1 Lymph % (Auto) 24.4 Mcduffie % (Auto) 7.5 Eos % (Auto) 2.6 Baso % (Auto) 1.4 Neut # (Auto) 4.2 Lymph # (Auto) 1.6 Mcduffie # (Auto) 0.5 Eos # (Auto) 0.2 Baso # (Auto) 0.1 Sodium 135 Potassium 5.3 H Chloride 93 L Carbon Dioxide 27 Anion Gap 20 BUN 37 H Creatinine 6.1 H Est GFR ( Amer) 9 Est GFR (Non-Af Amer) 8 Random Glucose 138 H Calcium 12.4 H Magnesium 2.3 Total Bilirubin 0.9 AST 32 ALT 18 Alkaline Phosphatase 100 Troponin I 0.0200 NT-Pro-B Natriuret Pep 9280 H Total Protein 8.6 H Albumin 4.5 Globulin 4.1 H Albumin/Globulin Ratio 1.1 Lipase 246 Beta HCG, Quant < 2.39 Assessment & Plan - Assessment and Plan (Free Text) Assessment: This is 42 year old female with PMHx of HTN, T1DM (A1C 6.4 [07/2017]) with Paresthesia and Neuropathic pain, CVA, ESRD on HD MWF with R AV Fistula, and GERD presents to the ED with chest pain, heart burn and bilateral lower extremity cramping during dialysis today. Admitted for chest pain r/o ACS. Plan: Chest Pain r/o ACS EKG: NSR @ 77 BPM, no peaked t waves noted, no ST changes, unchanged from previous EKG 03/2017 Initial JOLANTA: negative, follow up JOLANTA and EKG x 2 BNP: 9280 Echo (01/04/17) - EF: 70%, LV function WNL, concentric LV hypertrophy, mild TR, borderline pulmonary HTN, No vegetations. Hypercalemia - 12.4, baseline 8-9 - F/U PTH, PTH related protein, calcium, vitamin D Constipation - Abdomen Obstructive Series - noted constipation - Colace and Miralax daily should be apart of patient's daily regimen - Dulcolax x1, if persists with no bowel movement, lactulose ESRD on HD MWF - Nephrology consult, Dr. Velazquez on board--> help appreciated - 2/2 to diabetic nephropathy - Dry Weight 54 kg- usual HD is 2- 2.5 L - Continue Sensipar 90mg PO Daily [facility] - Continue Sevelamer 1600mg TIDCC - Patient reports receiving Vitamin D during each dialysis session?? Confirm with Nephro Chronic Hypertension - Resumed home regimen: Labetolol 300 PO twice daily, Minoxidil 10mg PO BID, Clonidine 0.2mg PO BID Type 1 DM - Hemoglobin A1c 07/2017 - 6.4 - Accuchecks // Hypoglycemia Protocol - Renal/ Carb Consistent Diet - ISS- low - Resumed home regimen: Novolog 4 Units AC, Lantus 6 Units HS Hx of CVA - Started Crestor 10mg PO QHS Hx of Paresthesia/Neuropathic pain (Hands, Arm, Neck) - Resumed home regimen: Lyrica 75mg PO HS Hx of GERD - Protonix 40mg IVP daily Conjunctival Injection - Artificial Tears 2 drops OU BID Hx of Depression Prophylaxis - Protonix 40mg IVP QD - SCDs, Heparin 5000u SC Q8H DW Dr. Leroy, Zoey Madrid DO, PGY-1 <Arturo Leroy P - Last Filed: 09/21/17 07:27> Results - Vital Signs Recent Vital Signs: Last Vital Signs Temp 97.2 F L 09/20/17 23:50 Pulse 75 09/20/17 23:50 Resp 20 09/20/17 23:50 BP 131/63 09/20/17 23:50 Pulse Ox 98 09/20/17 23:50 - Labs Result Diagrams: 09/20/17 18:06 09/20/17 18:06 Labs: Laboratory Results - last 24 hr 09/20/17 09/20/17 09/20/17 18:06 18:06 18:06 WBC 6.5 RBC 3.71 L Hgb 11.4 Hct 32.9 L MCV 88.5 D MCH 30.7 MCHC 34.7 RDW 14.2 Plt Count 137 MPV 12.0 H Neut % (Auto) 64.1 Lymph % (Auto) 24.4 Mcduffie % (Auto) 7.5 Eos % (Auto) 2.6 Baso % (Auto) 1.4 Neut # (Auto) 4.2 Lymph # (Auto) 1.6 Mcduffie # (Auto) 0.5 Eos # (Auto) 0.2 Baso # (Auto) 0.1 Sodium 135 Potassium 5.3 H Chloride 93 L Carbon Dioxide 27 Anion Gap 20 BUN 37 H Creatinine 6.1 H Est GFR ( Amer) 9 Est GFR (Non-Af Amer) 8 POC Glucose (mg/dL) Random Glucose 138 H Calcium 12.4 H Magnesium 2.3 Total Bilirubin 0.9 AST 32 ALT 18 Alkaline Phosphatase 100 Total Creatine Kinase CK-MB (Mass) Troponin I 0.0200 NT-Pro-B Natriuret Pep 9280 H Total Protein 8.6 H Albumin 4.5 Globulin 4.1 H Albumin/Globulin Ratio 1.1 Triglycerides Cholesterol LDL Cholesterol Direct HDL Cholesterol Lipase 246 25-OH Vitamin D Total Beta HCG, Quant < 2.39 09/20/17 09/20/17 09/20/17 20:28 22:00 22:39 WBC RBC Hgb Hct MCV MCH MCHC RDW Plt Count MPV Neut % (Auto) Lymph % (Auto) Mcduffie % (Auto) Eos % (Auto) Baso % (Auto) Neut # (Auto) Lymph # (Auto) Mcduffie # (Auto) Eos # (Auto) Baso # (Auto) Sodium Potassium Chloride Carbon Dioxide Anion Gap BUN Creatinine Est GFR ( Amer) Est GFR (Non-Af Amer) POC Glucose (mg/dL) 141 H 132 H Random Glucose Calcium Magnesium Total Bilirubin AST ALT Alkaline Phosphatase Total Creatine Kinase CK-MB (Mass) Troponin I NT-Pro-B Natriuret Pep Total Protein Albumin Globulin Albumin/Globulin Ratio Triglycerides 146 Cholesterol 128 LDL Cholesterol Direct 42 HDL Cholesterol 46 Lipase 25-OH Vitamin D Total Beta HCG, Quant 09/21/17 09/21/17 09/21/17 00:37 00:37 03:25 WBC RBC Hgb Hct MCV MCH MCHC RDW Plt Count MPV Neut % (Auto) Lymph % (Auto) Mcduffie % (Auto) Eos % (Auto) Baso % (Auto) Neut # (Auto) Lymph # (Auto) Mcduffie # (Auto) Eos # (Auto) Baso # (Auto) Sodium Potassium Chloride Carbon Dioxide Anion Gap BUN Creatinine Est GFR ( Amer) Est GFR (Non-Af Amer) POC Glucose (mg/dL) Random Glucose Calcium 12.2 H Magnesium Total Bilirubin AST ALT Alkaline Phosphatase Total Creatine Kinase 162 H CK-MB (Mass) 2.76 Troponin I 0.0160 NT-Pro-B Natriuret Pep Total Protein Albumin Globulin Albumin/Globulin Ratio Triglycerides Cholesterol LDL Cholesterol Direct HDL Cholesterol Lipase 25-OH Vitamin D Total 29.1 L Beta HCG, Quant 09/21/17 06:03 WBC RBC Hgb Hct MCV MCH MCHC RDW Plt Count MPV Neut % (Auto) Lymph % (Auto) Mcduffie % (Auto) Eos % (Auto) Baso % (Auto) Neut # (Auto) Lymph # (Auto) Mcduffie # (Auto) Eos # (Auto) Baso # (Auto) Sodium Potassium Chloride Carbon Dioxide Anion Gap BUN Creatinine Est GFR ( Amer) Est GFR (Non-Af Amer) POC Glucose (mg/dL) 112 H Random Glucose Calcium Magnesium Total Bilirubin AST ALT Alkaline Phosphatase Total Creatine Kinase CK-MB (Mass) Troponin I NT-Pro-B Natriuret Pep Total Protein Albumin Globulin Albumin/Globulin Ratio Triglycerides Cholesterol LDL Cholesterol Direct HDL Cholesterol Lipase 25-OH Vitamin D Total Beta HCG, Quant Attending/Attestation - Attestation I have personally seen and examined this patient.: Yes I have fully participated in the care of the patient.: Yes I have reviewed all pertinent clinical information: Yes Notes (Text): Assessment * Symptoms of significant worsening of paraasthesia and cramping during hd, with newly diagnosed hypercalcimia, patient mentions not on vit d3, but may be getting during hd as per her * Constipation * Clinically lower side volume, but close to dry weight * Constipation and lots of stool, no abd tenderness * Heart burn during hd yesterday, clinically not chest pain * h/o dm neuropathy, nephropathy, gastric paresis * type 1 dm Plan * Repeat calcium, PTH, and Pth related protein * IVF measured amount not continuous due to ESRD not urinating, ordered 1 lit for symptomatic relief of hypercalcimia * Depending on response may need other treatments * Pain control * Gi/DVt prophylaxis * Regular bowel regime for constipation suggest to start with mirralax. * See order for detail.
[2017-09-20] MEDS ORDERED: Glucagon Recombinant 1 mg Inj IM PRN (20:19)
[2017-09-20] MEDS ORDERED: Dextrose 50% SYRINGE Inj (50 ml) IV PRN (20:19)
[2017-09-20 21:31] LABS: HDL CHOLESTEROL 46 mg/dL (30-70); LDL CHOLESTEROL 42 mg/dL (0-129)
[2017-09-20] MEDS ORDERED: Bisacodyl 5mg EC Tab PO ONE (22:57)
[2017-09-20] MEDS: (Novolin R) Insulin Human Regular 100 units/ml vial SC SCH (23:32)
[2017-09-21] MEDS: (Lantus) Insulin Glargine, Recombinant SC SCH ×2 (00:05→21:18)
[2017-09-21] MEDS ORDERED: Sodium Chloride 0.9% 1,000 ML IV SCH (02:00)
[2017-09-21 03:50] LABS: CK-MB 2.76 ng/mL (0.0-3.38); TROPONIN I 0.016 ng/mL (0.00-0.120)
[2017-09-21 07:24] LABS: BASO # 0.1 K/uL (0.0-0.2); MONO # 0.8 K/uL (0.0-0.8); NEUT # 2.6 K/uL (1.8-7.0)
[2017-09-21 07:30] LABS: BASO % 1.2 % (0.0-2.0); EOS # 0.3 K/uL (0.0-0.7); EOS % 4.6 % (0.0-4.0); HEMOGLOBIN 11.5 g/dL (11.0-16.0); LYMPH # 2.3 K/uL (1.0-4.3); MEAN CELL VOLUME 89.8 fL (81.0-99.0); MEAN CORPUSCULAR HEMOGLOBIN 30.9 pg (27.0-31.0); MEAN CORPUSCULAR HGB CONC 34.4 g/dL (33.0-37.0); MEAN PLATELET VOLUME 12.1 fL (7.2-11.7); MONO % 13.1 % (0.0-10.0); NEUT % 43.1 % (50.0-75.0); NRBC % 0.1 % (0.0-2.0); RBC 3.71 Mil/uL (3.80-5.20); RED CELL DISTRIBUTION WIDTH 14.1 % (11.5-14.5)
[2017-09-21] MEDS: (Novolin R) Insulin Human Regular 100 units/ml vial SC SCH ×4 (07:40→23:34)
[2017-09-21] MEDS: (Novolog) Insulin Aspart, Recombinant 100 u/ml 10 ml vial SC SCH ×3 (07:40→17:34)
[2017-09-21 07:52] LABS: ALB/GLOB RATIO 1.1 (1.0-2.1); CALCIUM 11.7 mg/dl (8.6-10.4)
--- NOTE | 2017-09-21 08:24 | RAD ---
Abdomen four views History: Abdominal pain. Comparison: None available. Findings: Right axillary stent in place. Biapical pleural thickening with upper lobe granulomatous changes. Mild venous congestion. Right hilar prominence. Bibasilar breast and nipple shadows. Blunted left costophrenic angle suggestive for pleural thickening and or trace effusion. Patchy bibasilar increased markings which may represent atelectasis and or infiltrate. Clinical correlation. Moderate fecal retention in the colon. Vascular calcifications. No evidence for gross obstruction. Impression: Moderate fecal retention in the colon.
--- NOTE | 2017-09-21 08:49 | CP.PCM.PN ---
<Hosea Ocasio - Last Filed: 09/21/17 11:00> Subjective - Date & Time of Evaluation Date of Evaluation: 09/21/17 Time of Evaluation: 08:50 - Subjective Subjective: PGY2 Note for Dr. Griffin Fofana Patient seen and examined at bedside; states that leg cramps are much improved from admission; is for dialysis today; denies chest pain or any other symptoms; denies fevers/chills, ECHEVERRIA, CP, SOB, abominal pain, N/V/D, dysuria/freq/urg or lower extremity pain. Objective - Vital Signs/Intake and Output Vital Signs (last 24 hours): Temp Pulse Resp BP Pulse Ox 97.8 F 94 H 18 122/63 95 09/21/17 07:00 09/21/17 07:40 09/21/17 07:00 09/21/17 07:00 09/21/17 07:00 - Medications Medications: Current Medications Artificial Tears (Artificial Tears) 0 ml OU BID [facility] Cinacalcet (Sensipar) 90 mg PO DAILY [facility] Clonidine HCl (Catapres) 0.2 mg PO BID [facility] Dextrose (Dextrose 50% Inj) 0 ml IV STAT PRN; Protocol PRN Reason: Hypoglycemia Protocol Dextrose (Glutose 15) 0 gm PO ONCE PRN; Protocol PRN Reason: Hypoglycemia Protocol Docusate Sodium (Colace) 100 mg PO BID PRN PRN Reason: Constipation Glucagon (Glucagen Diagnostic Kit) 0 mg IM STAT PRN; Protocol PRN Reason: Hypoglycemia Protocol Heparin Sodium (Porcine) (Heparin) 5,000 units SC Q8 [facility] Last Admin: 09/21/17 07:02 Dose: Not Given Dextrose (Dextrose 5% In Water 1000 Ml) 1,000 mls @ 0 mls/hr IV .Q0M PRN; Protocol; Per Protocol PRN Reason: Hypoglycemia Protocol Sodium Chloride (Sodium Chloride 0.9%) 1,000 mls @ 55 mls/hr IV .[id number] [facility] Stop: 09/21/17 20:10 Last Admin: 09/21/17 02:48 Dose: 55 mls/hr Insulin Aspart (Novolog) 4 unit SC ACTID [facility] Insulin Glargine (Lantus) 6 unit SC HS [facility] Last Admin: 09/21/17 00:05 Dose: Not Given Insulin Human Regular (Novolin R) 0 unit SC ACHS [facility] PRN Reason: Protocol Last Admin: 09/20/17 23:32 Dose: Not Given Labetalol HCl (Normodyne) 300 mg PO BID [facility] Minoxidil (Loniten) 10 mg PO BID [facility] Ondansetron HCl (Zofran Inj) 4 mg IVP Q6 PRN PRN Reason: Nausea/Vomiting Pantoprazole Sodium (Protonix Inj) 40 mg IVP DAILY [facility] Polyethylene Glycol (Miralax) 17 gm PO DAILY [facility] Pregabalin (Lyrica) 75 mg PO HS [facility] Last Admin: 09/21/17 00:05 Dose: Not Given Rosuvastatin Calcium (Crestor) 10 mg PO HS [facility] Last Admin: 09/21/17 00:04 Dose: Not Given Sevelamer Carbonate (Renvela) 1,600 mg PO TIDCC [facility] - Labs Labs: 09/21/17 07:16 09/21/17 07:16 - Constitutional Appears: Well, Non-toxic - Head Exam Head Exam: ATRAUMATIC, NORMAL INSPECTION - Eye Exam Eye Exam: EOMI, Normal appearance. absent: Scleral icterus (pale conjunctiva ) - ENT Exam ENT Exam: Mucous Membranes Moist - Neck Exam Neck Exam: Full ROM. absent: Lymphadenopathy - Respiratory Exam Respiratory Exam: Clear to Ausculation Bilateral, NORMAL BREATHING PATTERN. absent: Rales, Rhonchi, Wheezes - Cardiovascular Exam Cardiovascular Exam: REGULAR RHYTHM, +S1, +S2 - GI/Abdominal Exam GI & Abdominal Exam: Soft, Normal Bowel Sounds. absent: Tenderness - Extremities Exam Extremities Exam: Full ROM. absent: Pedal Edema - Back Exam Back Exam: NORMAL INSPECTION. absent: CVA tenderness (L), CVA tenderness (R) - Neurological Exam Neurological Exam: Alert, Awake, Oriented x3 - Psychiatric Exam Psychiatric exam: Normal Affect, Normal Mood - Skin Skin Exam: Warm Assessment and Plan - Assessment and Plan (Free Text) Assessment: This is 42 year old female with PMHx of HTN, T1DM (A1C 6.4 [07/2017]) with Paresthesia and Neuropathic pain, CVA, ESRD on HD MWF with R AV Fistula, and GERD presents to the ED with chest pain, heart burn and bilateral lower extremity cramping during dialysis today. Admitted for chest pain r/o ACS. Plan: Chest Pain r/o ACS; stable EKG: NSR @ 77 BPM, no peaked t waves noted, no ST changes, unchanged from previous EKG 03/2017 Initial JOLANTA: negative, follow up JOLANTA and EKG x 2 BNP: 9280 Echo (01/04/17) - EF: 70%, LV function WNL, concentric LV hypertrophy, mild TR, borderline pulmonary HTN, No vegetations. Hypercalemia - 12.4, baseline 8-9 09/21: 11.7 - F/U PTH, PTH related protein, calcium, vitamin D: 29.1; borderline low -treatments include 1) increasing urination (unlikely to be beneficial in a patient with ESRD who does not make urine 2) hemodialysis (patient will receive ) and 3) Calcitonin/EDTA bisphoshponates which will reduce bone resoprtion and reduce GIT absorption of calcium Constipation - Abdomen Obstructive Series - noted constipation - Colace and Miralax daily should be apart of patient's daily regimen - Dulcolax x1, if persists with no bowel movement, lactulose - do not give patient narcotics ESRD on HD MWF - Nephrology consult, Dr. Velazquez on board--> help appreciated - 05/24 to diabetic nephropathy - Dry Weight 54 kg- usual HD is 2- 2.5 L - Continue Sensipar 90mg PO Daily [facility] - Continue Sevelamer 1600mg TIDCC -09/21: patient is for dialysis today Chronic Hypertension - Resumed home regimen: Labetolol 300 PO twice daily, Minoxidil 10mg PO BID, Clonidine 0.2mg PO BID -stable in hospital Type 1 DM; well controlled - Hemoglobin A1c 07/2017 - 6.4 - Accuchecks // Hypoglycemia Protocol - Renal/ Carb Consistent Diet - ISS- low - Resumed home regimen: Novolog 4 Units AC, Lantus 6 Units HS Hx of CVA - Started Crestor 10mg PO QHS -will continue as outpatient Hx of Paresthesia/Neuropathic pain (Hands, Arm, Neck) - Resumed home regimen: Lyrica 75mg PO HS; consider increasing Hx of GERD - Protonix 40mg IVP daily Conjunctival Injection - Artificial Tears 2 drops OU BID Prophylaxis - Protonix 40mg IVP QD - SCDs, Heparin 5000u SC Q8H Case discussed and seen with attending physician On discharge patient will be given refills of her Lyrica 75mg PO HS as well as omeprazole 40mg PO daily for GERD can also go to [facility] [phone] at [address] [place] Hosea OspinaReynolds PGY2 <Rosendo Fofana - Last Filed: 09/21/17 18:21> Objective - Vital Signs/Intake and Output Vital Signs (last 24 hours): Temp Pulse Resp BP Pulse Ox 98 F 81 18 115/45 L 95 09/21/17 14:00 09/21/17 16:00 09/21/17 14:00 09/21/17 16:00 09/21/17 16:00 - Medications Medications: Current Medications Acetaminophen (Tylenol 325mg Tab) 650 mg PO Q6 PRN PRN Reason: Pain, Mild (1-3) Last Admin: 09/21/17 09:49 Dose: 650 mg Artificial Tears (Artificial Tears) 0 ml OU BID [facility] Last Admin: 09/21/17 10:02 Dose: 1 drop Cinacalcet (Sensipar) 90 mg PO DAILY [facility] Last Admin: 09/21/17 09:56 Dose: 90 mg Clonidine HCl (Catapres) 0.2 mg PO BID [facility] Last Admin: 09/21/17 10:07 Dose: Not Given Dextrose (Dextrose 50% Inj) 0 ml IV STAT PRN; Protocol PRN Reason: Hypoglycemia Protocol Dextrose (Glutose 15) 0 gm PO ONCE PRN; Protocol PRN Reason: Hypoglycemia Protocol Docusate Sodium (Colace) 100 mg PO BID PRN PRN Reason: Constipation Last Admin: 09/21/17 10:05 Dose: 100 mg Glucagon (Glucagen Diagnostic Kit) 0 mg IM STAT PRN; Protocol PRN Reason: Hypoglycemia Protocol Heparin Sodium (Porcine) (Heparin) 5,000 units SC Q8 [facility] Last Admin: 09/21/17 07:02 Dose: Not Given Dextrose (Dextrose 5% In Water 1000 Ml) 1,000 mls @ 0 mls/hr IV .Q0M PRN; Protocol; Per Protocol PRN Reason: Hypoglycemia Protocol Sodium Chloride (Sodium Chloride 0.9%) 1,000 mls @ 55 mls/hr IV .[id number] [facility] Stop: 09/21/17 20:10 Last Admin: 09/21/17 02:48 Dose: 55 mls/hr Insulin Aspart (Novolog) 4 unit SC ACTID [facility] Last Admin: 09/21/17 17:34 Dose: Not Given Insulin Glargine (Lantus) 6 unit SC [facility] Last Admin: 09/21/17 00:05 Dose: Not Given Insulin Human Regular (Novolin R) 0 unit SC [facility] PRN Reason: Protocol Last Admin: 09/21/17 17:34 Dose: Not Given Labetalol HCl (Normodyne) 300 mg PO BID [facility] Last Admin: 09/21/17 09:56 Dose: 300 mg Minoxidil (Loniten) 10 mg PO BID [facility] Last Admin: 09/21/17 10:13 Dose: Not Given Ondansetron HCl (Zofran Inj) 4 mg IVP Q6 PRN PRN Reason: Nausea/Vomiting Last Admin: 09/21/17 09:51 Dose: 4 mg Pantoprazole Sodium (Protonix Inj) 40 mg IVP DAILY [facility] Last Admin: 09/21/17 09:52 Dose: 40 mg Polyethylene Glycol (Miralax) 17 gm PO DAILY [facility] Last Admin: 09/21/17 09:56 Dose: 17 gm Pregabalin (Lyrica) 75 mg PO [facility] Last Admin: 09/21/17 00:05 Dose: Not Given Rosuvastatin Calcium (Crestor) 10 mg PO [facility] Last Admin: 09/21/17 00:04 Dose: Not Given Sevelamer Carbonate (Renvela) 1,600 mg PO TIDCC [facility] Last Admin: 09/21/17 13:18 Dose: Not Given - Labs Labs: 09/21/17 07:16 09/21/17 07:16 Attending/Attestation - Attestation I have personally seen and examined this patient.: Yes I have fully participated in the care of the patient.: Yes I have reviewed all pertinent clinical information, including history, physical exam and plan: Yes Notes (Text): 09/21/17 18:00 Patient was seen and examined at 9:30 AM. Exam, assessment and plan were discussed with resident Dr. Dorian Ocasio. Also on ROS: Last bowel movement was yesterday Nausea but tolerated her breakfast without vomiting Chronic pain in the the lower extremities described best as a stiffness Cramping in the lower legs has resolved Chronic burning sensation involving the back, face, arms, hands Also on Exam: Systolic ejection murmur heard in all of the auscultatory tubbs. Right AVF + Thrill I checked in on the patient again at 6:00 PM and found her to be using her phone and listening to the tv at the same time. She explained that she was nauseous but examination of her food tray revealed that she had eaten 90% of her dinner. She also revealed that she feels like she has to have a bowel movement but does not want to use the bathroom as she does not like the bathroom in the hospital. I explained to her that her nausea was likely contributed by her holding her stool and that she was complaining of nausea and complaining that she was not being given anti-nausea medication soon enough. I asked her if this made any sense to her to which she started laughing. I instructed her to use the bathroom and that I was ordering a dose of Lactulose for her. F/U repeat blood work in the morning and will likely discharge. 09/21/17 18:05
[2017-09-21] MEDS: Labetalol Hydrochloride 300 mg Tab PO SCH ×2 (09:56→18:26)
[2017-09-21] MEDS: POLYETHYLENE GLYCOL 3350 17 GM/Dose PACKET PO SCH (09:56)
[2017-09-21] MEDS: Aritificial Tears (15ml) OU SCH ×2 (10:02→18:25)
[2017-09-21 12:20] LABS: CK-MB 3.33 ng/mL (0.0-3.38)
--- NOTE | 2017-09-21 21:58 | CON ---
DATE: 09/21/2017 ATTENDING PHYSICIAN: Rosendo Fofana DO HISTORY OF PRESENT ILLNESS: Ms. Prajapati is a 42-year-old female who has been seen for management of dialysis dependent renal failure. Ms. Prajapati has a long history of hypertension, diabetes, on dialysis for over 10 years. Over the past several days, she has had intermittent burning substernal chest discomfort, nausea, and vomiting with constipation and intermittent lower abdominal pain. Due to significant cramping of her legs, she reduced her treatment time, came to the emergency room and was admitted. On 09/20/2017, her white count was 6500, hemoglobin 11.4, hematocrit 32.9, platelets . Sodium 135, potassium 5.3, chloride 93, CO2 of 27, BUN 37, creatinine 6.1, glucose 138, calcium of 12.4, magnesium 2.3. Total bilirubin 0.9, AST of 32, ALT of 18, alkaline phosphatase of 100. Troponin 0.02. BNP of 9280. Total protein 8.6, albumin 4.5, lipase of 246, CPK of 162, CPK-MB of 276, troponin 0.016. Today, her potassium is 5.7, her calcium is 11.7, phosphorus 4.3. PAST HISTORY: Please see the above. Also has a history of diabetic nephropathy; diabetic neuropathy; post CVA with right hemiplegia, apparently recovered. ALLERGIES: SHE HAS NO ALLERGIES. She has been admitted to the [facility] in the past. MEDICATIONS: Include Tylenol, Sensipar which she has been on for years, clonidine, insulin, labetalol, minoxidil, Protonix, Lyrica, Crestor, Renvela. FAMILY HISTORY: Positive for diabetes and hypertension. SOCIAL HISTORY: Negative for alcohol or drug abuse. She does not smoke. REVIEW OF SYSTEMS: Please see the above. She denied cough or hemoptysis. She makes no urine. PHYSICAL EXAMINATION: GENERAL: She is awake and alert, in no acute distress. VITAL SIGNS: Temperature was 97.8, her pulse was 94, her blood pressure was 122/63. NECK: There was no jugular venous distention at 30 degrees. LUNGS: Clear. HEART: Rhythm was regular. ABDOMEN: Soft. Not overtly distended. Nontender. EXTREMITIES: There was no CVA tenderness or presacral edema. There were no gross motor deficits, and the fistula was patent in the right arm. 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 RECOMMENDATIONS: Recommend withhold Sensipar in view of GI symptoms. Schedule dialysis today. Obtain parathormone and serial chemistries including calcium. Thank you for your kind referral. We will continue to follow with you. Leland Shi MD
[2017-09-22] MEDS: (Novolog) Insulin Aspart, Recombinant 100 u/ml 10 ml vial SC SCH ×2 (07:40→12:51)
[2017-09-22] MEDS: (Novolin R) Insulin Human Regular 100 units/ml vial SC SCH ×2 (07:40→12:47)
[2017-09-22] MEDS: Labetalol Hydrochloride 300 mg Tab PO SCH (09:11)
[2017-09-22] MEDS: POLYETHYLENE GLYCOL 3350 17 GM/Dose PACKET PO SCH (09:13)
[2017-09-22] MEDS: Aritificial Tears (15ml) OU SCH (09:18)
[2017-09-22 11:54] LABS: ALB/GLOB RATIO 1.1 (1.0-2.1); CALCIUM 10.6 mg/dl (8.6-10.4)
[2017-09-22 11:59] LABS: CK-MB 1.91 ng/mL (0.0-3.38); TROPONIN I 0.015 ng/mL (0.00-0.120)
--- NOTE | 2017-09-22 12:04 | CP.PCM.DIS ---
<Hosea Ocasio - Last Filed: 09/22/17 12:50> Provider - Provider Date of Admission: 09/20/17 19:46 Attending physician: Rosendo Fofana MD Consults: Nephro: Dr. Velazquez Time Spent in preparation of Discharge (in minutes): 45 Hospital Course - Lab Results Lab Results: Most Recent Lab Values WBC 6.0 K/uL (4.8-10.8) 09/21/17 07:16 RBC 3.71 Mil/uL (3.80-5.20) L 09/21/17 07:16 Hgb 11.5 g/dL (11.0-16.0) 09/21/17 07:16 Hct 33.3 % (34.0-47.0) L 09/21/17 07:16 MCV 89.8 fL (81.0-99.0) 09/21/17 07:16 MCH 30.9 pg (27.0-31.0) 09/21/17 07:16 MCHC 34.4 g/dL (33.0-37.0) 09/21/17 07:16 RDW 14.1 % (11.5-14.5) 09/21/17 07:16 Plt Count 123 K/uL (130-400) L 09/21/17 07:16 MPV 12.1 fL (7.2-11.7) H 09/21/17 07:16 Neut % (Auto) 43.1 % (50.0-75.0) L 09/21/17 07:16 Lymph % (Auto) 38.0 % (20.0-40.0) 09/21/17 07:16 [place] % (Auto) 13.1 % (0.0-10.0) H 09/21/17 07:16 Eos % (Auto) 4.6 % (0.0-4.0) H 09/21/17 07:16 Baso % (Auto) 1.2 % (0.0-2.0) 09/21/17 07:16 Neut # (Auto) 2.6 K/uL (1.8-7.0) 09/21/17 07:16 Lymph # (Auto) 2.3 K/uL (1.0-4.3) 09/21/17 07:16 [place] # (Auto) 0.8 K/uL (0.0-0.8) 09/21/17 07:16 Eos # (Auto) 0.3 K/uL (0.0-0.7) 09/21/17 07:16 Baso # (Auto) 0.1 K/uL (0.0-0.2) 09/21/17 07:16 Differential Comment 09/21/17 07:16 Sodium 136 mmol/L (132-148) 09/22/17 11:21 Potassium 5.2 mmol/L (3.6-5.2) 09/22/17 11:21 Chloride 95 mmol/L (98-107) L 09/22/17 11:21 Carbon Dioxide 30 mmol/L (22-30) 09/22/17 11:21 Anion Gap 17 (10-20) 09/22/17 11:21 BUN 35 mg/dL (7-17) H 09/22/17 11:21 Creatinine 6.8 mg/dL (0.7-1.2) H 09/22/17 11:21 Est GFR ( Amer) 8 09/22/17 11:21 Est GFR (Non-Af Amer) 7 09/22/17 11:21 POC Glucose (mg/dL) 111 mg/dL (65-110) H 09/22/17 06:29 Random Glucose 156 mg/dL (65-105) H 09/22/17 11:21 Calcium 10.6 mg/dl (8.6-10.4) H 09/22/17 11:21 Phosphorus 4.3 mg/dL (2.5-4.5) 09/21/17 07:16 Magnesium 2.6 mg/dL (1.6-2.3) H 09/21/17 07:16 Total Bilirubin 0.5 mg/dL (0.2-1.3) 09/22/17 11:21 AST 21 U/L (14-36) 09/22/17 11:21 ALT 16 U/L (9-52) 09/22/17 11:21 Alkaline Phosphatase 90 U/L (38-126) 09/22/17 11:21 Total Creatine Kinase 105 U/L (30-135) 09/22/17 11:21 CK-MB (Mass) 3.33 ng/mL (0.0-3.38) 09/21/17 11:25 Troponin I < 0.0120 ng/mL (0.00-0.120) 09/21/17 11:25 NT-Pro-B Natriuret Pep 9280 pg/mL (0-450) H 09/20/17 18:06 Total Protein 7.6 g/dL (6.3-8.3) 09/22/17 11:21 Albumin 4.0 g/dL (3.5-5.0) 09/22/17 11:21 Globulin 3.6 gm/dL (2.2-3.9) 09/22/17 11:21 Albumin/Globulin Ratio 1.1 (1.0-2.1) 09/22/17 11:21 Triglycerides 146 mg/dL (0-149) 09/20/17 20:28 Cholesterol 128 mg/dL (0-199) 09/20/17 20:28 LDL Cholesterol Direct 42 mg/dL (0-129) 09/20/17 20:28 HDL Cholesterol 46 mg/dL (30-70) 09/20/17 20:28 Lipase 246 U/L (23-300) 09/20/17 18:06 25-OH Vitamin D Total 29.1 NG/ML (30.0-100.0) L 09/21/17 00:37 Beta HCG, Quant < 2.39 mIU/ML 09/20/17 18:06 - Hospital Course Hospital Course: This is 42 year old female with PMHx of HTN, T1DM (A1C 6.4 [07/2017]) with Paresthesia and Neuropathic pain, CVA, ESRD on HD MWF with R AV Fistula, and GERD presents to the ED with chest pain, heart burn and bilateral lower extremity cramping during dialysis today. Admitted for chest pain r/o ACS. Plan: Chest Pain r/o ACS; stable and resolved EKG: NSR @ 77 BPM, no peaked t waves noted, no ST changes, unchanged from previous EKG 03/2017 Initial JOLANTA: negative, follow up JOLANTA and EKG x 2 BNP: 9280 Echo (01/04/17) - EF: 70%, LV function WNL, concentric LV hypertrophy, mild TR, borderline pulmonary HTN, No vegetations. Hypercalemia; resolved - 12.4, baseline 8-9 6/2: 11.7 - F/U PTH, PTH related protein, calcium, vitamin D: 29.1; borderline low -treatments include 1) increasing urination (unlikely to be beneficial in a patient with ESRD who does not make urine 2) hemodialysis (patient will receive ) and 3) Calcitonin/EDTA bisphoshponates which will reduce bone resoprtion and reduce GIT absorption of calcium Ca is 10.6 on d/c will need to f/u with nephrology for monitoring will likely need calcitonin/EDTA and Vit D supplementation in the future Constipation; resolved - Abdomen Obstructive Series - noted constipation - Colace and Miralax daily should be apart of patient's daily regimen - Dulcolax x1, if persists with no bowel movement, lactulose - do not give patient narcotics Will need daily miralax ESRD on HD MWF - Nephrology consult, Dr. Velazquez on board--> help appreciated - 05/24 to diabetic nephropathy - Dry Weight 54 kg- usual HD is 2- 2.5 L - Continue Sensipar 90mg PO Daily CORINA - Continue Sevelamer 1600mg TIDCC -09/21: patient is for dialysis today continue with current hemodialysis schedule Chronic Hypertension - Resumed home regimen: Labetolol 300 PO twice daily, Minoxidil 10mg PO BID, Clonidine 0.2mg PO BID -stable in hospital c/w current medications Type 1 DM; well controlled - Hemoglobin A1c 07/2017 - 6.4 - Accuchecks // Hypoglycemia Protocol - Renal/ Carb Consistent Diet - ISS- low - Resumed home regimen: Novolog 4 Units AC, Lantus 6 Units HS c/w home regimen Hx of CVA; stable - Started Crestor 10mg PO QHS -will continue as outpatient Hx of Paresthesia/Neuropathic pain (Hands, Arm, Neck);chronic - Resumed home regimen: Lyrica 75mg PO HS; consider increasing Hx of GERD - Protonix 40mg IVP daily will use omeprazole as outpatient as is covered by insurance Conjunctival Injection; - Artificial Tears 2 drops OU BID can continue as outpatient if desired Prophylaxis - Protonix 40mg IVP QD - SCDs, Heparin 5000u SC Q8H Case discussed and seen with attending physician On discharge patient will be given refills of her Lyrica 75mg PO HS as well as omeprazole 40mg PO daily for GERD can also go to [facility] [phone] [place] [address] Discharge Exam - Head Exam Head Exam: ATRAUMATIC, NORMAL INSPECTION - Eye Exam Eye Exam: EOMI, Normal appearance, PERRL Pupil Exam: PERRL - ENT Exam ENT Exam: Mucous Membranes Moist - Respiratory Exam Respiratory Exam: Clear to PA & Lateral, UNREMARKABLE. absent: Rales, Rhonchi, Wheezes - Cardiovascular Exam Cardiovascular Exam: REGULAR RHYTHM, +S1, +S2 - GI/Abdominal Exam GI & Abdominal Exam: Normal Bowel Sounds, Soft. absent: Tenderness - Extremities Exam Extremities exam: full ROM - Back Exam Back exam: NORMAL INSPECTION. absent: CVA tenderness (L), CVA tenderness (R) - Neurological Exam Neurological exam: Alert, Oriented x3 - Psychiatric Exam Psychiatric exam: Normal Affect - Skin Skin Exam: Warm Discharge Plan - Discharge Medications Prescriptions: Omeprazole 40 mg PO DAILY #30 capsule. Pregabalin [Lyrica] 75 mg PO HS #30 cap - Follow Up Plan Condition: FAIR Disposition: HOME/ ROUTINE Instructions: Renal Failure Diet (DC) <Rosendo Fofana - Last Filed: 09/22/17 14:50> Provider - Provider Date of Admission: 09/20/17 19:46 Attending physician: Rosendo Fofana MD Time Spent in preparation of Discharge (in minutes): 40 Hospital Course - Lab Results Lab Results: Most Recent Lab Values WBC 6.0 K/uL (4.8-10.8) 09/21/17 07:16 RBC 3.71 Mil/uL (3.80-5.20) L 09/21/17 07:16 Hgb 11.5 g/dL (11.0-16.0) 09/21/17 07:16 Hct 33.3 % (34.0-47.0) L 09/21/17 07:16 MCV 89.8 fL (81.0-99.0) 09/21/17 07:16 MCH 30.9 pg (27.0-31.0) 09/21/17 07:16 MCHC 34.4 g/dL (33.0-37.0) 09/21/17 07:16 RDW 14.1 % (11.5-14.5) 09/21/17 07:16 Plt Count 123 K/uL (130-400) L 09/21/17 07:16 MPV 12.1 fL (7.2-11.7) H 09/21/17 07:16 Neut % (Auto) 43.1 % (50.0-75.0) L 09/21/17 07:16 Lymph % (Auto) 38.0 % (20.0-40.0) 09/21/17 07:16 [place] % (Auto) 13.1 % (0.0-10.0) H 09/21/17 07:16 Eos % (Auto) 4.6 % (0.0-4.0) H 09/21/17 07:16 Baso % (Auto) 1.2 % (0.0-2.0) 09/21/17 07:16 Neut # (Auto) 2.6 K/uL (1.8-7.0) 09/21/17 07:16 Lymph # (Auto) 2.3 K/uL (1.0-4.3) 09/21/17 07:16 [place] # (Auto) 0.8 K/uL (0.0-0.8) 09/21/17 07:16 Eos # (Auto) 0.3 K/uL (0.0-0.7) 09/21/17 07:16 Baso # (Auto) 0.1 K/uL (0.0-0.2) 09/21/17 07:16 Differential Comment 09/21/17 07:16 Sodium 136 mmol/L (132-148) 09/22/17 11:21 Potassium 5.2 mmol/L (3.6-5.2) 09/22/17 11:21 Chloride 95 mmol/L (98-107) L 09/22/17 11:21 Carbon Dioxide 30 mmol/L (22-30) 09/22/17 11:21 Anion Gap 17 (10-20) 09/22/17 11:21 BUN 35 mg/dL (7-17) H 09/22/17 11:21 Creatinine 6.8 mg/dL (0.7-1.2) H 09/22/17 11:21 Est GFR ( Amer) 8 09/22/17 11:21 Est GFR (Non-Af Amer) 7 09/22/17 11:21 POC Glucose (mg/dL) 166 mg/dL (65-110) H 09/22/17 11:46 Random Glucose 156 mg/dL (65-105) H 09/22/17 11:21 Calcium 10.6 mg/dl (8.6-10.4) H 09/22/17 11:21 Phosphorus 4.3 mg/dL (2.5-4.5) 09/21/17 07:16 Magnesium 2.6 mg/dL (1.6-2.3) H 09/21/17 07:16 Total Bilirubin 0.5 mg/dL (0.2-1.3) 09/22/17 11:21 AST 21 U/L (14-36) 09/22/17 11:21 ALT 16 U/L (9-52) 09/22/17 11:21 Alkaline Phosphatase 90 U/L (38-126) 09/22/17 11:21 Total Creatine Kinase 105 U/L (30-135) 09/22/17 11:21 CK-MB (Mass) 1.91 ng/mL (0.0-3.38) 09/22/17 11:21 Troponin I 0.0150 ng/mL (0.00-0.120) 09/22/17 11:21 NT-Pro-B Natriuret Pep 9280 pg/mL (0-450) H 09/20/17 18:06 Total Protein 7.6 g/dL (6.3-8.3) 09/22/17 11:21 Albumin 4.0 g/dL (3.5-5.0) 09/22/17 11:21 Globulin 3.6 gm/dL (2.2-3.9) 09/22/17 11:21 Albumin/Globulin Ratio 1.1 (1.0-2.1) 09/22/17 11:21 Triglycerides 146 mg/dL (0-149) 09/20/17 20:28 Cholesterol 128 mg/dL (0-199) 09/20/17 20:28 LDL Cholesterol Direct 42 mg/dL (0-129) 09/20/17 20:28 HDL Cholesterol 46 mg/dL (30-70) 09/20/17 20:28 Lipase 246 U/L (23-300) 09/20/17 18:06 25-OH Vitamin D Total 29.1 NG/ML (30.0-100.0) L 09/21/17 00:37 Beta HCG, Quant < 2.39 mIU/ML 09/20/17 18:06 Attending/Attestation - Attestation I have personally seen and examined this patient.: Yes I have fully participated in the care of the patient.: Yes I have reviewed all pertinent clinical information, including history, physical exam and plan: Yes Notes (Text): 09/22/17 14:46 Patient was seen and examined at 11:30 AM. Exam, assessment and plan and discharge instructions were gone over with resident Dr. Rajiv Ocasio. Abdominal discomfort, LE cramping has resolved. She had multiple large bowel movements yesterday evening. She explained she had all of her medications except for the ones that Dr. Rajiv Ojeda mentioned above that he provided Rx for. Explained to patient that she must follow up with her regularly scheduled HD starting tomorrow. She understands to follow up with [facility] as planned for 10/08. She was also provided with [facility] contact information to make an appointment sooner if she did not want to wait for 10/08 so that she can get Pain Management referral. Rosendo Fofana D.O.
[2017-09-22 16:15] VITALS: BP 115/65; PULSE 80; RESP 20; TEMP 97.7; O2SAT 96
--- NOTE | 2017-09-23 14:44 | CARD ---
APPROVED REPORT EKG Measurement Heart [id number] [id number] <Conclusion> Normal sinus rhythm Normal ECG
--- NOTE | 2017-09-24 13:43 | CARD ---
APPROVED REPORT EKG Measurement Heart [id number] [place] 152P51 [id number] <Conclusion> Normal sinus rhythm Normal ECG
--- NOTE | 2017-09-24 13:45 | CARD ---
APPROVED REPORT EKG Measurement Heart [id number] [place] 156P46 [id number] <Conclusion> Normal sinus rhythm Normal ECG
== END 2017-09-22 16:23 | disposition home or self-care (01) ==
LOC: C.ER 16:57 → C.9E 19:46 → C.6T 20:58
PROVIDERS: ADMIT Internal Medicine; ATTEND Family Medicine
DX: R07.9 Chest pain, unspecified (principal); I12.0 Hypertensive chronic kidney disease with stage 5 chronic kidney disease or end stage renal disease; E10.22 Type 1 diabetes mellitus with diabetic chronic kidney disease; K59.00 Constipation, unspecified; N18.6 End stage renal disease; E10.21 Type 1 diabetes mellitus with diabetic nephropathy; K21.9 Gastro-esophageal reflux disease without esophagitis; Z79.4 Long term (current) use of insulin; Z87.891 Personal history of nicotine dependence; Z99.2 Dependence on renal dialysis; Z87.01 Personal history of pneumonia (recurrent); N25.81 Secondary hyperparathyroidism of renal origin; I69.351 Hemiplegia and hemiparesis following cerebral infarction affecting right dominant side
CPT/HCPCS: 36415; 74022; 80053; 80061; 82306; 82310; 82948; 83519; 83690; 83735; 83880; 83970; 84100; 84484; 84702; 85025; 93005; 96372; 96374; 96375; 96376; 99285; C9113; G0257; G0378; J1644; J2270; J2405; J7030

== ENCOUNTER 2017-10-09 19:49 | Observation (INO) | payer OTHER ==
[2017-10-09 19:49] VITALS: BMI 22.4
--- NOTE | 2017-10-09 20:31 | C.PDOC ---
History Of Present Illness 42yo female, on dialysis MWF and had her dialysis today, states she feels weak. She reports some chest discomfort, described as dull and aching. Time Seen by Provider: 10/09/17 20:30 Chief Complaint (Nursing): Medical Clearance History Per: Patient History/Exam Limitations: no limitations Onset/Duration Of Symptoms: Days (1) Current Symptoms Are (Timing): Still Present Severity: Moderate Pain Scale Rating Of: 3 Reports Recently: Seen In ED, Treated By A Physician Recent travel outside of the [place]: No Additional History Per: Patient Past Medical History Reviewed: Historical Data, Nursing Documentation, Vital Signs Vital Signs: Last Vital Signs Temp 97.7 F 10/09/17 19:53 Pulse 88 10/09/17 21:53 Resp 12 10/09/17 21:53 BP 146/71 10/09/17 21:53 Pulse Ox 97 10/09/17 23:26 - Medical History PMH: Anemia, Anxiety, Depression, Diabetes, Fractures (RT ANKLE), GERD, HTN, Pneumonia, End Stage Renal Disease (m-w-f dialysis -had treatment today), Chronic Kidney Disease, Seizures (2008) Denies: Kidney Stones Surgical History: No Surg Hx - [facility] Procedures (07/24/17) DILATION OF R BASILIC VEIN WITH INTRALUM DEV, PERC APPROACH (07/13/16) DILATION OF RIGHT BASILIC VEIN, PERCUTANEOUS APPROACH (05/03/17) DILATION OF UPPER ARTERY, PERCUTANEOUS APPROACH (07/24/17) EXTIRPATION OF MATTER FROM RIGHT BASILIC VEIN, PERC APPROACH (07/13/16) FLUOROSCOPY OF INF VENA CAVA USING L OSM CONTRAST, GUIDANCE (05/29/16) INDIVIDUAL PSYCHOTHERAPY, COGNITIVE-BEHAVIORAL (10/23/16) INDIVIDUAL PSYCHOTHERAPY, SUPPORTIVE (10/23/16) INSERTION OF INFUSION DEV INTO INF VENA CAVA, PERC APPROACH (05/29/16) INSERTION OF INFUSION DEV INTO SUP VENA CAVA, PERC APPROACH (07/13/16) INSERTION OF INFUSION DEVICE INTO LOWER VEIN, PERC APPROACH (07/24/17) INTRODUCE OTH THROMBOLYTIC IN PERIPH VEIN, PERC (07/13/16) PERFORMANCE OF URINARY FILTRATION, MULTIPLE (01/03/17) REMOVAL OF OTHER DEVICE ON RIGHT INGUINAL REGION (05/29/16) ULTRASONOGRAPHY OF INFERIOR VENA CAVA, GUIDANCE (07/13/16) Family History: States: No Known Family Hx - Social History Hx Tobacco Use: Yes Hx Alcohol Use: No Hx Substance Use: No - Immunization History Hx Tetanus Toxoid Vaccination: No Hx Influenza Vaccination: Yes Hx Pneumococcal Vaccination: No Review Of Systems Constitutional: Negative for: Fever, Chills Cardiovascular: Positive for: Chest Pain Respiratory: Negative for: Shortness of Breath Gastrointestinal: Negative for: Nausea, Vomiting, Abdominal Pain Neurological: Positive for: Weakness Physical Exam - Physical Exam Appears: Non-toxic Skin: Warm, Dry Head: Normacephalic Eye(s): bilateral: Normal Inspection Oral Mucosa: Moist Neck: Supple Chest: Symmetrical, Tenderness (reproducible tenderness to palpation) Cardiovascular: Rhythm Regular Respiratory: No Rales, No Rhonchi, No Wheezing Gastrointestinal/Abdominal: Soft, No Tenderness Back: Normal Inspection Extremity: Other (graft on right forearm with good thrill and bruit) Extremity: Bilateral: Atraumatic, Normal Color And Temperature Pulses: Left Dorsalis Pedis: Normal, Right Dorsalis Pedis: Normal Neurological/Psych: Oriented x3 Gait: Steady ED Course And Treatment - Laboratory Results Result Diagrams: 10/09/17 20:58 10/09/17 20:58 ECG: Interpreted By Me, Viewed By Me ECG Rhythm: Sinus Rhythm (73), Nonspecific Changes O2 Sat by Pulse Oximetry: 97 (RA) Pulse Ox Interpretation: Normal - Radiology CXR: Interpreted by Me, Viewed By Me CXR Interpretation: Yes: Other (fibrotic changes). No: Infiltrates, Fracture, Pnemothorax Progress Note: Labs, CXR and EKG ordered. Disposition Discussed With DrMario: Arturo Piedra Comment: accepted the pt on his service and took over the care at 11:42 PM Doctor Will See Patient In The: ED Counseled Patient/Family Regarding: Studies Performed, Diagnosis - Disposition Disposition: HOSPITALIZED Disposition Time: 20:30 Condition: FAIR Forms: [facility] (Niuean) - POA Present On Arrival: Poor Glycemic Control - Clinical Impression Clinical Impression: Chest pain, ESRD (end stage renal disease) - Scribe Statement The provider has reviewed the documentation as recorded by the Scribe (Harmony Wilson) Provider Attestation: All medical record entries made by the Scribe were at my direction and personally dictated by me. I have reviewed the chart and agree that the record accurately reflects my personal performance of the history, physical exam, medical decision making, and the department course for this patient. I have also personally directed, reviewed, and agree with the discharge instructions and disposition. Decision To Admit - Pt Status Changed To: Hospital Disposition Of: Observation - . Bed Request Type: Telemetry Admitting Physician: Arturo Piedra Patient Diagnosis: Chest pain, ESRD (end stage renal disease)
[2017-10-09 21:04] LABS: BASO # 0.1 K/uL (0.0-0.2); EOS # 0.2 K/uL (0.0-0.7); LYMPH # 1.5 K/uL (1.0-4.3); MONO # 0.5 K/uL (0.0-0.8); NEUT # 2.1 K/uL (1.8-7.0); NEUT % 48.2 % (50.0-75.0); WHITE BLOOD COUNT 4.4 K/uL (4.8-10.8)
[2017-10-09 21:14] LABS: BASO % 1.9 % (0.0-2.0); EOS % 4.8 % (0.0-4.0); HEMOGLOBIN 11.2 g/dL (11.0-16.0); LYMPH % 33.8 % (20.0-40.0); MEAN CELL VOLUME 89.1 fL (81.0-99.0); MEAN CORPUSCULAR HEMOGLOBIN 29.9 pg (27.0-31.0); MEAN CORPUSCULAR HGB CONC 33.6 g/dL (33.0-37.0); MONO % 11.3 % (0.0-10.0); RBC 3.74 Mil/uL (3.80-5.20); RED CELL DISTRIBUTION WIDTH 14.3 % (11.5-14.5)
[2017-10-09 21:17] LABS: INR 1.1; PROTHROMBIN TIME 11.7 SECONDS (9.7-12.2)
[2017-10-09 21:46] LABS: ALB/GLOB RATIO 1.2 (1.0-2.1); ALBUMIN 4.6 g/dL (3.5-5.0); ALT/SGPT 21 U/L (9-52); AST/SGOT 28 U/L (14-36); BLOOD UREA NITROGEN 21 mg/dL (7-17); CALCIUM 9.8 mg/dl (8.6-10.4); GFR AFRICAN-AMERICAN 13; GFR NON-AFRICAN AMERICAN 11
[2017-10-09] MEDS ORDERED: Morphine 4 MG/ML VIAL ONE (23:20)
--- NOTE | 2017-10-09 23:45 | CP.PCM.HP ---
<LuizNano ManoloMario - Last Filed: 10/10/17 00:22> History of Present Illness - History of Present Illness History of Present Illness: CC: chest pain HPI: This is a 42 year old female with PMHx of HTN, T1DM (A1C 6.4 [07/2017]) with Paresthesia and Neuropathic pain, Hx CVA, ESRD on HD MWF with R AV Fistula , and GERD presents to the ED with chest pain. Patient states she had dialysis today at 6pm. After she received dialysis she started to feel weakness and chest pain. She states the chest pain feels like pressure and it stays in the middle of her chest. She denies radiation of the pain or numbness or tingling. She states she received morphine in the ER and because of that the pain feels much better it is still present but she feels relief. She states she told the nurse at the dialysis center because she felt so weak she did not feel comfortable going home. Patient denies fevers, chills, chest pain, palpitations , shortness of breath, nausea, vomiting, diarrhea or constipation. PMD: Dr. Holloway Past Medical History: HTN, T1DM (A1C 6.4 [07/2017]) with Paresthesia and Neuropathic pain, Hx CVA, ESRD on HD MWF with R AV Fistula, GERD, Depression Past Surgical History: B/l cataracts, R. retina surgery, AV shunt in R. arm, Embolectomy from R. LE, AV fistula left UE collapsed, s/p fisulagram right arm, balloon angioplasty of [place] stent stenosis (8 mm) 07/24/17 Medications: Novolog 4 units before meals, Lantus 6 units HS, Labetolol 300 mg PO BID, Minoxidil 10 mg PO BID, Clonidine 0.2 mg PO BID, Lyrica 75 mg PO HS, Sensipar 90 mg daily, Renvela 3 tabs TID, Nexium 40 mg daily, Crestor 10mg PO QHS Allergies: NKDA Social History: denies alcohol, smoking, or illicit drug use Family History: Mother - DM/ESRD; Dad - Heart problems, prostate cancer Present on Admission - Present on Admission Any Indicators Present on Admission: No Review of Systems - Constitutional Constitutional: absent: Chills, Fever - EENT Eyes: absent: Change in Vision - Cardiovascular Cardiovascular: Chest Pain. absent: Dyspnea, Leg Edema, Palpitations - Respiratory Respiratory: absent: Dyspnea - Gastrointestinal Gastrointestinal: absent: Constipation, Diarrhea, Nausea, Vomiting - Musculoskeletal Musculoskeletal: absent: Numbness, Tingling - Neurological Neurological: absent: Dizziness, Numbness, Headaches, Tingling Past Patient History - Infectious Disease Hx of Infectious Diseases: None - Past Medical History & Family History Past Medical History?: Yes - Past Social History Smoking Status: Never Smoked - CARDIAC Hx Hypertension: Yes - PULMONARY Hx Pneumonia: Yes - NEUROLOGICAL Hx Seizures: Yes (2008) - HEENT Hx HEENT Problems: Yes Hx Cataracts: Yes (HAD CUATE CATARACT SURGERY) - RENAL Hx Chronic Kidney Disease: Yes Hx Kidney Stones: No - ENDOCRINE/METABOLIC Hx Endocrine Disorders: Yes Hx Diabetes Mellitus Type 1: Yes - HEMATOLOGICAL/ONCOLOGICAL Hx Anemia: Yes - INTEGUMENTARY Hx Dermatological Problems: No - MUSCULOSKELETAL/RHEUMATOLOGICAL Hx Fractures: Yes (RT ANKLE) - GASTROINTESTINAL Hx Gastrointestinal Disorders: Yes Hx Ulcer: Yes - PSYCHIATRIC Hx Anxiety: Yes Hx Depression: Yes Hx Substance Use: No - SURGICAL HISTORY Hx Surgeries: Yes Hx Arteriovenous Shunt: Yes (NON FUNC MITZI, NEW SIDNEY) Hx Cataract Extraction: Yes Hx Eye Surgery: Yes (RETINA RT) Hx Vascular Access Device: Yes (LEFT AV FISTULA) - ANESTHESIA Hx Anesthesia: Yes Hx Anesthesia Reactions: No Hx Malignant Hyperthermia: No Meds Allergies/Adverse Reactions: Allergies Allergy/AdvReac Type Severity Reaction Status Date / Time No Known Allergies Allergy Verified 10/09/17 20:01 Physical Exam - Constitutional Appears: No Acute Distress, Older Than Stated Age - Head Exam Head Exam: ATRAUMATIC, NORMAL INSPECTION - Eye Exam Eye Exam: EOMI, Normal appearance, PERRL Pupil Exam: NORMAL ACCOMODATION - ENT Exam ENT Exam: Mucous Membranes Moist - Respiratory Exam Respiratory Exam: Clear to Auscultation Bilateral, NORMAL BREATHING PATTERN - Cardiovascular Exam Cardiovascular Exam: REGULAR RHYTHM, +S1, +S2 - GI/Abdominal Exam GI & Abdominal Exam: Normal Bowel Sounds, Soft. absent: Tenderness - Extremities Exam Extremities exam: Positive for: normal capillary refill. Negative for: pedal edema, tenderness Additional comments: AV fistula on the right arm - Neurological Exam Neurological exam: Alert, Oriented x3 - Psychiatric Exam Psychiatric exam: Normal Affect, Normal Mood - Skin Skin Exam: Normal Color Results - Vital Signs Recent Vital Signs: Last Vital Signs Temp 97.7 F 10/09/17 19:53 Pulse 88 10/09/17 21:53 Resp 12 10/09/17 21:53 BP 146/71 10/09/17 21:53 Pulse Ox 97 10/09/17 23:44 - Labs Result Diagrams: 10/09/17 20:58 10/09/17 20:58 Labs: Laboratory Results - last 24 hr 10/09/17 10/09/17 10/09/17 20:12 20:58 20:58 WBC 4.4 L RBC 3.74 L Hgb 11.2 Hct 33.3 L MCV 89.1 MCH 29.9 MCHC 33.6 RDW 14.3 Plt Count 125 L MPV 11.0 Neut % (Auto) 48.2 L Lymph % (Auto) 33.8 [place] % (Auto) 11.3 H Eos % (Auto) 4.8 H Baso % (Auto) 1.9 Neut # (Auto) 2.1 Lymph # (Auto) 1.5 [place] # (Auto) 0.5 Eos # (Auto) 0.2 Baso # (Auto) 0.1 PT 11.7 INR 1.1 APTT 34 Sodium Potassium Chloride Carbon Dioxide Anion Gap BUN Creatinine Est GFR ( Amer) Est GFR (Non-Af Amer) POC Glucose (mg/dL) 136 H Random Glucose Calcium Magnesium Total Bilirubin AST ALT Alkaline Phosphatase Troponin I Total Protein Albumin Globulin Albumin/Globulin Ratio 10/09/17 20:58 WBC RBC Hgb Hct MCV MCH MCHC RDW Plt Count MPV Neut % (Auto) Lymph % (Auto) [place] % (Auto) Eos % (Auto) Baso % (Auto) Neut # (Auto) Lymph # (Auto) [place] # (Auto) Eos # (Auto) Baso # (Auto) PT INR APTT Sodium 141 Potassium 3.9 Chloride 94 L Carbon Dioxide 33 H Anion Gap 17 BUN 21 H Creatinine 4.6 H Est GFR ( Amer) 13 Est GFR (Non-Af Amer) 11 POC Glucose (mg/dL) Random Glucose 120 H Calcium 9.8 Magnesium 2.1 Total Bilirubin 0.7 AST 28 ALT 21 Alkaline Phosphatase 81 Troponin I < 0.0120 Total Protein 8.5 H Albumin 4.6 Globulin 3.9 Albumin/Globulin Ratio 1.2 Assessment & Plan - Assessment and Plan (Free Text) Assessment: Chest Pain r/o ACS - Patient received Morphine 2mg IV once in the ER - EKG: NSR @ 70 BPM, no ST changes - Initial JOLANTA: negative, follow up JOLANTA and EKG x 2 - Echo (01/04/17) - EF: 70%, LV function WNL, concentric LV hypertrophy, mild TR , borderline pulmonary HTN, No vegetations. ESRD on HD MWF - Continue Sensipar 90mg PO Daily CORINA - Continue Sevelamer 1600mg TIDCC History of Hypertension - Resumed home regimen: * Labetolol 300 PO twice daily * Minoxidil 10mg PO BID * Clonidine 0.2mg PO BID History of Type 1 DM - Hemoglobin A1c 07/2017 - 6.4 - Accuchecks // Hypoglycemia Protocol - Renal/ Carb Consistent Diet - ISS- moderate - Resumed home regimen: Novolog 4 Units AC, Lantus 6 Units HS History of CVA - Continued home medication Crestor 10mg PO QHS History of Paresthesia/Neuropathic pain (Hands, Arm, Neck) - Resumed home regimen: Lyrica 75mg PO HS History of GERD - Protonix 40mg IVP daily Hx of Depression Prophylaxis - Protonix 40mg IVP QD - SCDs - Heparin 5000u SC Q8H Case discussed with Dr. Dorothea Dee PGY-2 <Arturo Piedra - Last Filed: 10/10/17 06:28> Results - Vital Signs Recent Vital Signs: Last Vital Signs Temp 98.3 F 10/10/17 00:19 Pulse 71 10/10/17 05:16 Resp 11 L 10/10/17 05:16 BP 146/47 L 10/10/17 05:16 Pulse Ox 96 10/10/17 05:16 - Labs Result Diagrams: 10/09/17 20:58 10/09/17 20:58 Labs: Laboratory Results - last 24 hr 10/09/17 10/09/17 10/09/17 20:12 20:58 20:58 WBC 4.4 L RBC 3.74 L Hgb 11.2 Hct 33.3 L MCV 89.1 MCH 29.9 MCHC 33.6 RDW 14.3 Plt Count 125 L MPV 11.0 Neut % (Auto) 48.2 L Lymph % (Auto) 33.8 [place] % (Auto) 11.3 H Eos % (Auto) 4.8 H Baso % (Auto) 1.9 Neut # (Auto) 2.1 Lymph # (Auto) 1.5 [place] # (Auto) 0.5 Eos # (Auto) 0.2 Baso # (Auto) 0.1 PT 11.7 INR 1.1 APTT 34 Sodium Potassium Chloride Carbon Dioxide Anion Gap BUN Creatinine Est GFR ( Amer) Est GFR (Non-Af Amer) POC Glucose (mg/dL) 136 H Random Glucose Calcium Magnesium Total Bilirubin AST ALT Alkaline Phosphatase Troponin I Total Protein Albumin Globulin Albumin/Globulin Ratio 10/09/17 20:58 WBC RBC Hgb Hct MCV MCH MCHC RDW Plt Count MPV Neut % (Auto) Lymph % (Auto) [place] % (Auto) Eos % (Auto) Baso % (Auto) Neut # (Auto) Lymph # (Auto) [place] # (Auto) Eos # (Auto) Baso # (Auto) PT INR APTT Sodium 141 Potassium 3.9 Chloride 94 L Carbon Dioxide 33 H Anion Gap 17 BUN 21 H Creatinine 4.6 H Est GFR ( Amer) 13 Est GFR (Non-Af Amer) 11 POC Glucose (mg/dL) Random Glucose 120 H Calcium 9.8 Magnesium 2.1 Total Bilirubin 0.7 AST 28 ALT 21 Alkaline Phosphatase 81 Troponin I < 0.0120 Total Protein 8.5 H Albumin 4.6 Globulin 3.9 Albumin/Globulin Ratio 1.2 Assessment & Plan - Date & Time Date: 10/10/17 (I have seen and examined the patient. I agree with the findings and plan of care as documented by Dr. Dee. Patient with chest pain. History of hypertension. ROMIx3 with EKG. Aspirin and Statin. Continue home meds. Also with history of ESRD. Consult nephrology to continue dialysis schedule. Monitor for acute changes.) Time: 06:27 Attending/Attestation - Attestation I have personally seen and examined this patient.: Yes I have fully participated in the care of the patient.: Yes I have reviewed all pertinent clinical information: Yes
[2017-10-10] MEDS ORDERED: Dextrose 50% SYRINGE Inj (50 ml) IV PRN (00:05)
[2017-10-10] MEDS ORDERED: Glucagon Recombinant 1 mg Inj IM PRN (00:05)
[2017-10-10 05:17] VITALS: O2SAT 96
[2017-10-10 06:54] VITALS: RESP 20
[2017-10-10 07:26] LABS: CK-MB 1.75 ng/mL (0.0-3.38)
--- NOTE | 2017-10-10 07:29 | RAD ---
HISTORY: SOB COMPARISON: Chest x-ray 04/09/2017 TECHNIQUE: Chest one view . FINDINGS: LUNGS: Mild pulmonary vascular congestion. PLEURA: Small left pleural effusion. CARDIOVASCULAR: Heart size is within normal limits. Right axillary vascular stent noted. OSSEOUS STRUCTURES: Visualized osseous structures are unremarkable. VISUALIZED UPPER ABDOMEN: Unremarkable. OTHER FINDINGS: None. IMPRESSION: Mild pulmonary vascular congestion. Small left pleural effusion.
[2017-10-10] MEDS ORDERED: (Novolog) Insulin Aspart, Recombinant 100 u/ml 10 ml vial SC SCH (07:30)
[2017-10-10 07:40] LABS: TROPONIN I 0.015 ng/mL (0.00-0.120)
[2017-10-10] MEDS: (Novolin R) Insulin Human Regular 100 units/ml vial SC SCH ×2 (09:54→12:12)
[2017-10-10] MEDS ORDERED: Labetalol Hydrochloride 300 mg Tab PO SCH (10:00)
--- NOTE | 2017-10-10 11:11 | CP.PCM.CON ---
History of Present Illness - History of Present Illness History of Present Illness: HPI: This is a 42 year old female with PMHx of HTN, T1DM (A1C 6.4 [07/2017]) with Paresthesia and Neuropathic pain, Hx CVA, ESRD on HD MWF with R AV Fistula , and GERD presents to the ED with chest pain. Patient states she had dialysis today at 6pm. After she received dialysis she started to feel weakness and chest pain. She states the chest pain feels like pressure and it stays in the middle of her chest. She denies radiation of the pain or numbness or tingling. She states she received morphine in the ER and because of that the pain feels much better it is still present but she feels relief. She states she told the nurse at the dialysis center because she felt so weak she did not feel comfortable going home. Patient denies fevers, chills, chest pain, palpitations , shortness of breath, nausea, vomiting, diarrhea or constipation. s/p dialysis 10/09- uncomplicated PMD: Dr. Holloway Past Medical History: HTN, T1DM (A1C 6.4 [07/2017]) with Paresthesia and Neuropathic pain, Hx CVA, ESRD on HD MWF with R AV Fistula, GERD, Depression Past Surgical History: B/l cataracts, R. retina surgery, AV shunt in R. arm, Embolectomy from R. LE, AV fistula left UE collapsed, s/p fisulagram right arm, balloon angioplasty of [place] stent stenosis (8 mm) 07/24/17 Medications: Novolog 4 units before meals, Lantus 6 units HS, Labetolol 300 mg PO BID, Minoxidil 10 mg PO BID, Clonidine 0.2 mg PO BID, Lyrica 75 mg PO HS, Sensipar 90 mg daily, Renvela 3 tabs TID, Nexium 40 mg daily, Crestor 10mg PO QHS Allergies: NKDA Social History: denies alcohol, smoking, or illicit drug use Family History: Mother - DM/ESRD; Dad - Heart problems, prostate cancer Review of Systems - Constitutional Constitutional: Lethargy, Weakness - EENT Eyes: absent: As Per HPI, Blind Spots, Blurred Vision, Change in Vision, Decreased Night Vision, Diplopia, Discharge, Dry Eye, Exophthalmos, Floaters, Irritation, Itchy Eyes, Loss of Peripheral Vision, Pain, Photophobia, Requires Corrective Lenses, Sees Flashes, Spots in Vision, Tunnel Vision, Other Visual Disturbances, Loss of Vision, Other Ears: absent: As Per HPI, Decreased Hearing, Ear Discharge, Ear Pain, Tinnitus, Abnormal Hearing, Disequilibrium, Dizziness, Other Nose/Mouth/Throat: absent: As Per HPI, Epistaxis, Nasal Congestion, Nasal Discharge, Nasal Obstruction, Nasal Trauma, Nose Pain, Post Nasal Drip, Sinus Pain, Sinus Pressure, Bleeding Gums, Change in Voice, Dental Pain, Dry Mouth, Dysphagia, Halitosis, Hoarsness, Lip Swelling, Mouth Lesions, Mouth Pain, Odynophagia, Sore Throat, Throat Swelling, Tongue Swelling, Facial Pain, Neck Pain, Neck Mass, Other - Cardiovascular Cardiovascular: Chest Pain with Activity - Respiratory Respiratory: absent: As Per HPI, Cough, Dyspnea, Hemoptysis, Dyspnea on Exertion , Wheezing, Snoring, Stridor, Pain on Inspiration, Chest Congestion, Excessive Mucous Production, Change in Mucous Color, Pain with Coughing, Other - Gastrointestinal Gastrointestinal: Dyspepsia, Dysphagia - Genitourinary Genitourinary: As Per HPI - Musculoskeletal Musculoskeletal: Muscle Weakness, Myalgias - Integumentary Integumentary: absent: As Per HPI, Acne, Alopecia, Bleeding Lesions, Change in Hair, Change in Nails, Change in Pigmentation, Changing Lesions, Dry Skin, Erythema, Furuncle, Hirsutism, Lesions, New Lesions, Non-Healing Lesions, Photosensitivity, Pruritus, Rash, Skin Pain, Skin Ulcer, Sores, Striae, Swelling , Unusual Bruising, Wounds, Jaundice, Other - Neurological Neurological: Weakness Past Patient History - Infectious Disease Hx of Infectious Diseases: None - Past Medical History & Family History Past Medical History?: Yes Past Family History: Reviewed and not pertinent - Past Social History Smoking Status: Never Smoked Chewing Tobacco Use: No Cigar Use: No Alcohol: None Drugs: Denies - CARDIAC Hx Hypertension: Yes - PULMONARY Hx Pneumonia: Yes - NEUROLOGICAL Hx Seizures: Yes (2008) - HEENT Hx HEENT Problems: Yes Hx Cataracts: Yes (HAD CUATE CATARACT SURGERY) - RENAL Hx Chronic Kidney Disease: Yes Hx Kidney Stones: No - ENDOCRINE/METABOLIC Hx Endocrine Disorders: Yes Hx Diabetes Mellitus Type 1: Yes - HEMATOLOGICAL/ONCOLOGICAL Hx Anemia: Yes - INTEGUMENTARY Hx Dermatological Problems: No - MUSCULOSKELETAL/RHEUMATOLOGICAL Hx Fractures: Yes (RT ANKLE) - GASTROINTESTINAL Hx Gastrointestinal Disorders: Yes Hx Ulcer: Yes - PSYCHIATRIC Hx Anxiety: Yes Hx Depression: Yes Hx Substance Use: No - SURGICAL HISTORY Hx Surgeries: Yes Hx Arteriovenous Shunt: Yes (NON FUNC MITZI, NEW SIDNEY) Hx Cataract Extraction: Yes Hx Eye Surgery: Yes (RETINA RT) Hx Vascular Access Device: Yes (LEFT AV FISTULA) - ANESTHESIA Hx Anesthesia: Yes Hx Anesthesia Reactions: No Hx Malignant Hyperthermia: No Meds Allergies/Adverse Reactions: Allergies Allergy/AdvReac Type Severity Reaction Status Date / Time No Known Allergies Allergy Verified 10/09/17 20:01 - Medications Medications: Current Medications Cinacalcet (Sensipar) 90 mg PO DAILY [facility] Last Admin: 10/10/17 09:53 Dose: 90 mg Clonidine HCl (Catapres) 0.2 mg PO BID [facility] Last Admin: 10/10/17 09:53 Dose: 0.2 mg Dextrose (Dextrose 50% Inj) 0 ml IV STAT PRN; Protocol PRN Reason: Hypoglycemia Protocol Dextrose (Glutose 15) 0 gm PO ONCE PRN; Protocol PRN Reason: Hypoglycemia Protocol Glucagon (Glucagen Diagnostic Kit) 0 mg IM STAT PRN; Protocol PRN Reason: Hypoglycemia Protocol Heparin Sodium (Porcine) (Heparin) 5,000 units SC Q8 [facility] Last Admin: 10/10/17 06:20 Dose: 5,000 units Dextrose (Dextrose 5% In Water 1000 Ml) 1,000 mls @ 0 mls/hr IV .Q0M PRN; Protocol; Per Protocol PRN Reason: Hypoglycemia Protocol Insulin Aspart (Novolog) 4 unit SC ACB [facility] Last Admin: 10/10/17 09:55 Dose: Not Given Insulin Glargine (Lantus) 6 unit SC HS [facility] Insulin Human Regular (Novolin R) 0 unit SC ACHS [place] PRN Reason: Protocol Last Admin: 10/10/17 09:54 Dose: Not Given Labetalol HCl (Normodyne) 300 mg PO BID [facility] Last Admin: 10/10/17 09:54 Dose: 300 mg Minoxidil (Loniten) 10 mg PO BID [facility] Last Admin: 10/10/17 09:54 Dose: 10 mg Pantoprazole Sodium (Protonix Inj) 40 mg IVP Q12H [facility] Last Admin: 10/10/17 02:15 Dose: 40 mg Pregabalin (Lyrica) 75 mg PO HS [place] Rosuvastatin Calcium (Crestor) 10 mg PO HS [place] Sevelamer Carbonate (Renvela) 800 mg PO TIDCC [facility] Last Admin: 10/10/17 09:55 Dose: 800 mg Physical Exam - Constitutional Appears: No Acute Distress, Chronically Ill - Head Exam Head Exam: ATRAUMATIC, NORMAL INSPECTION - Eye Exam Eye Exam: EOMI, Normal appearance - Neck Exam Neck exam: Positive for: Normal Inspection. Negative for: Tenderness - Respiratory Exam Respiratory Exam: Clear to Auscultation Bilateral, NORMAL BREATHING PATTERN - Cardiovascular Exam Cardiovascular Exam: REGULAR RHYTHM, +S1 - GI/Abdominal Exam GI & Abdominal Exam: Soft. absent: Tenderness - Extremities Exam Extremities exam: Positive for: normal inspection. Negative for: pedal edema - Neurological Exam Neurological exam: Alert, CN II-XII Intact - Skin Skin Exam: Dry, Warm Results - Vital Signs Recent Vital Signs: Last Vital Signs Temp 97.9 F 10/10/17 08:00 Pulse 75 10/10/17 08:00 Resp 20 10/10/17 08:00 BP 152/63 H 10/10/17 08:00 Pulse Ox 96 10/10/17 08:00 - Labs Result Diagrams: 10/09/17 20:58 10/09/17 20:58 Labs: Laboratory Results - last 24 hr 10/09/17 10/09/17 10/09/17 20:12 20:58 20:58 WBC 4.4 L RBC 3.74 L Hgb 11.2 Hct 33.3 L MCV 89.1 MCH 29.9 MCHC 33.6 RDW 14.3 Plt Count 125 L MPV 11.0 Neut % (Auto) 48.2 L Lymph % (Auto) 33.8 [place] % (Auto) 11.3 H Eos % (Auto) 4.8 H Baso % (Auto) 1.9 Neut # (Auto) 2.1 Lymph # (Auto) 1.5 [place] # (Auto) 0.5 Eos # (Auto) 0.2 Baso # (Auto) 0.1 PT 11.7 INR 1.1 APTT 34 Sodium Potassium Chloride Carbon Dioxide Anion Gap BUN Creatinine Est GFR ( Amer) Est GFR (Non-Af Amer) POC Glucose (mg/dL) 136 H Random Glucose Calcium Magnesium Total Bilirubin AST ALT Alkaline Phosphatase Total Creatine Kinase CK-MB (Mass) Troponin I Total Protein Albumin Globulin Albumin/Globulin Ratio 10/09/17 10/10/17 10/10/17 20:58 02:34 06:14 WBC RBC Hgb Hct MCV MCH MCHC RDW Plt Count MPV Neut % (Auto) Lymph % (Auto) [place] % (Auto) Eos % (Auto) Baso % (Auto) Neut # (Auto) Lymph # (Auto) [place] # (Auto) Eos # (Auto) Baso # (Auto) PT INR APTT Sodium 141 Potassium 3.9 Chloride 94 L Carbon Dioxide 33 H Anion Gap 17 BUN 21 H Creatinine 4.6 H Est GFR ( Amer) 13 Est GFR (Non-Af Amer) 11 POC Glucose (mg/dL) 142 H Random Glucose 120 H Calcium 9.8 Magnesium 2.1 Total Bilirubin 0.7 AST 28 ALT 21 Alkaline Phosphatase 81 Total Creatine Kinase 97 CK-MB (Mass) 1.75 Troponin I < 0.0120 0.0150 Total Protein 8.5 H Albumin 4.6 Globulin 3.9 Albumin/Globulin Ratio 1.2 10/10/17 06:30 WBC RBC Hgb Hct MCV MCH MCHC RDW Plt Count MPV Neut % (Auto) Lymph % (Auto) [place] % (Auto) Eos % (Auto) Baso % (Auto) Neut # (Auto) Lymph # (Auto) [place] # (Auto) Eos # (Auto) Baso # (Auto) PT INR APTT Sodium Potassium Chloride Carbon Dioxide Anion Gap BUN Creatinine Est GFR ( Amer) Est GFR (Non-Af Amer) POC Glucose (mg/dL) 175 H Random Glucose Calcium Magnesium Total Bilirubin AST ALT Alkaline Phosphatase Total Creatine Kinase CK-MB (Mass) Troponin I Total Protein Albumin Globulin Albumin/Globulin Ratio Assessment & Plan (1) Hypertensive chronic kidney disease with stage 5 chronic kidney disease or end stage renal disease Status: Acute (2) Chest pain Status: Acute (3) ESRD (end stage renal disease) Status: Acute - Assessment and Plan (Free Text) Plan: medical team to evaluate CPs dialysis MWF
[2017-10-10 14:24] LABS: CK-MB 1.78 ng/mL (0.0-3.38)
--- NOTE | 2017-10-10 14:42 | CP.PCM.DIS ---
Provider - Provider Date of Admission: 10/09/17 23:41 Attending physician: Arturo Piedra MD Primary care physician: PMD: Dr Holloway Consults: Nephrology: Dr Velazquez Time Spent in preparation of Discharge (in minutes): 33 Diagnosis - Discharge Diagnosis (1) Weakness Status: Resolved Priority: Medium Hospital Course - Lab Results Lab Results: Most Recent Lab Values WBC 4.4 K/uL (4.8-10.8) L 10/09/17 20:58 RBC 3.74 Mil/uL (3.80-5.20) L 10/09/17 20:58 Hgb 11.2 g/dL (11.0-16.0) 10/09/17 20:58 Hct 33.3 % (34.0-47.0) L 10/09/17 20:58 MCV 89.1 fL (81.0-99.0) 10/09/17 20:58 MCH 29.9 pg (27.0-31.0) 10/09/17 20:58 MCHC 33.6 g/dL (33.0-37.0) 10/09/17 20:58 RDW 14.3 % (11.5-14.5) 10/09/17 20:58 Plt Count 125 K/uL (130-400) L 10/09/17 20:58 MPV 11.0 fL (7.2-11.7) 10/09/17 20:58 Neut % (Auto) 48.2 % (50.0-75.0) L 10/09/17 20:58 Lymph % (Auto) 33.8 % (20.0-40.0) 10/09/17 20:58 [place] % (Auto) 11.3 % (0.0-10.0) H 10/09/17 20:58 Eos % (Auto) 4.8 % (0.0-4.0) H 10/09/17 20:58 Baso % (Auto) 1.9 % (0.0-2.0) 10/09/17 20:58 Neut # (Auto) 2.1 K/uL (1.8-7.0) 10/09/17 20:58 Lymph # (Auto) 1.5 K/uL (1.0-4.3) 06/20/18 20:58 [place] # (Auto) 0.5 K/uL (0.0-0.8) 10/09/17 20:58 Eos # (Auto) 0.2 K/uL (0.0-0.7) 10/09/17 20:58 Baso # (Auto) 0.1 K/uL (0.0-0.2) 10/09/17 20:58 PT 11.7 SECONDS (9.7-12.2) 10/09/17 20:58 INR 1.1 10/09/17 20:58 APTT 34 SECONDS (21-34) 10/09/17 20:58 Sodium 141 mmol/L (132-148) 10/09/17 20:58 Potassium 3.9 mmol/L (3.6-5.2) 10/09/17 20:58 Chloride 94 mmol/L (98-107) L 10/09/17 20:58 Carbon Dioxide 33 mmol/L (22-30) H 10/09/17 20:58 Anion Gap 17 (10-20) 10/09/17 20:58 BUN 21 mg/dL (7-17) H 10/09/17 20:58 Creatinine 4.6 mg/dL (0.7-1.2) H 10/09/17 20:58 Est GFR ( Amer) 13 10/09/17 20:58 Est GFR (Non-Af Amer) 11 10/09/17 20:58 POC Glucose (mg/dL) 194 mg/dL (65-110) H 10/10/17 11:16 Random Glucose 120 mg/dL (65-105) H 10/09/17 20:58 Calcium 9.8 mg/dl (8.6-10.4) 10/09/17 20:58 Magnesium 2.1 mg/dL (1.6-2.3) 10/09/17 20:58 Total Bilirubin 0.7 mg/dL (0.2-1.3) 10/09/17 20:58 AST 28 U/L (14-36) 10/09/17 20:58 ALT 21 U/L (9-52) 10/09/17 20:58 Alkaline Phosphatase 81 U/L (38-126) 10/09/17 20:58 Total Creatine Kinase 94 U/L (30-135) 10/10/17 13:46 CK-MB (Mass) 1.78 ng/mL (0.0-3.38) 10/10/17 13:46 Troponin I < 0.0120 ng/mL (0.00-0.120) 10/10/17 13:46 Total Protein 8.5 g/dL (6.3-8.3) H 10/09/17 20:58 Albumin 4.6 g/dL (3.5-5.0) 10/09/17 20:58 Globulin 3.9 gm/dL (2.2-3.9) 10/09/17 20:58 Albumin/Globulin Ratio 1.2 (1.0-2.1) 10/09/17 20:58 - Hospital Course Hospital Course: CC: chest pain HPI: This is a 42 year old female with PMHx of HTN, T1DM (A1C 6.4 [07/2017]) with Paresthesia and Neuropathic pain, Hx CVA, ESRD on HD MWF with R AV Fistula , and GERD presents to the ED with chest pain. Patient states she had dialysis today at 6pm. After she received dialysis she started to feel weakness and chest pain. She states the chest pain feels like pressure and it stays in the middle of her chest. She denies radiation of the pain or numbness or tingling. She states she received morphine in the ER and because of that the pain feels much better it is still present but she feels relief. She states she told the nurse at the dialysis center because she felt so weak she did not feel comfortable going home. Patient denies fevers, chills, chest pain, palpitations , shortness of breath, nausea, vomiting, diarrhea or constipation. PMD: Dr. Holloway Past Medical History: HTN, T1DM (A1C 6.4 [07/2017]) with Paresthesia and Neuropathic pain, Hx CVA, ESRD on HD MWF with R AV Fistula, GERD, Depression Past Surgical History: B/l cataracts, R. retina surgery, AV shunt in R. arm, Embolectomy from R. LE, AV fistula left UE collapsed, s/p fisulagram right arm, balloon angioplasty of [place] stent stenosis (8 mm) 07/24/17 Medications: Novolog 4 units before meals, Lantus 6 units HS, Labetolol 300 mg PO BID, Minoxidil 10 mg PO BID, Clonidine 0.2 mg PO BID, Lyrica 75 mg PO HS, Sensipar 90 mg daily, Renvela 3 tabs TID, Nexium 40 mg daily, Crestor 10mg PO QHS Allergies: NKDA Social History: denies alcohol, smoking, or illicit drug use Family History: Mother - DM/ESRD; Dad - Heart problems, prostate cancer HOSPITAL COURSE: Patient came in with chest pain and weakness which incurred immediately after her HD session. ACS was ruled out by NSR EKG and negative JOLANTA's x3. Her chest pain had resolved after admission. We were not impressed with the chest pain and do not believe it was cardiac in origin. Patient had an Echo within the year thus a new Echo was not ordered. Nephrology was consulted and patient was seen by Dr Velazquez. All her home medications were continued. There was discrepancy over whether the patient takes crestor or not - it was not in [employer] however previous notes state he is on it - the patient could not recall if she takes that medication or not thus a new script was electronically sent over to her pharmacy in case she does not have it. The latest A/P is shown below for more specifics: Chest Pain r/o ACS - Patient received Morphine 2mg IV once in the ER - EKG: NSR @ 70 BPM, no ST changes - Initial JOLANTA: negative, follow up JOLANTA and EKG x 2 - Echo (01/04/17) - EF: 70%, LV function WNL, concentric LV hypertrophy, mild TR , borderline pulmonary HTN, No vegetations. ESRD on HD MWF - Continue Sensipar 90mg PO Daily CORINA - Continue Sevelamer 1600mg TIDCC History of Hypertension - Resumed home regimen: * Labetolol 300 PO twice daily * Minoxidil 10mg PO BID * Clonidine 0.2mg PO BID History of Type 1 DM - Hemoglobin A1c 07/2017 - 6.4 - Accuchecks // Hypoglycemia Protocol - Renal/ Carb Consistent Diet - ISS- moderate - Resumed home regimen: Novolog 4 Units AC, Lantus 6 Units HS History of CVA - Continued home medication Crestor 10mg PO QHS History of Paresthesia/Neuropathic pain (Hands, Arm, Neck) - Resumed home regimen: Lyrica 75mg PO HS History of GERD - Protonix 40mg IVP daily Hx of Depression Prophylaxis - Protonix 40mg IVP QD - SCDs - Heparin 5000u SC Q8H Discharge Exam - Head Exam Head Exam: ATRAUMATIC, NORMAL INSPECTION - Additional Findings Additional findings: - Constitutional Appears: No Acute Distress, Older Than Stated Age - Head Exam Head Exam: ATRAUMATIC, NORMAL INSPECTION - Eye Exam Eye Exam: EOMI, Normal appearance, PERRL Pupil Exam: NORMAL ACCOMODATION - ENT Exam ENT Exam: Mucous Membranes Moist - Respiratory Exam Respiratory Exam: Clear to Auscultation Bilateral, NORMAL BREATHING PATTERN - Cardiovascular Exam Cardiovascular Exam: REGULAR RHYTHM, +S1, +S2 - GI/Abdominal Exam GI & Abdominal Exam: Normal Bowel Sounds, Soft. absent: Tenderness - Extremities Exam Extremities exam: Positive for: normal capillary refill. Negative for: pedal edema, tenderness Additional comments: AV fistula on the right arm - Neurological Exam Neurological exam: Alert, Oriented x3 - Psychiatric Exam Psychiatric exam: Normal Affect, Normal Mood - Skin Skin Exam: Normal Color Discharge Plan - Discharge Medications Prescriptions: Rosuvastatin Calcium [Crestor] 10 mg PO HS #30 tab - Follow Up Plan Condition: FAIR Disposition: HOME/ ROUTINE Additional Instructions: You are medically stable for discharge. Please resume your normally scheduled hemodialysis. You will be started on one additional medication which was not in your home medication list. This medication is: 1. Rosuvastatin (Crestor) 10mg take 1 tablet before bedtime The above newly prescribed medication was sent electronically to your pharmacy [facility] [id number]. If you do have this medication at home then disregard this script. Please resume all your other home mediations as have been prescribed by your primary medical doctor. If symptoms return go to your nearest emergency department. Referrals: Gerry Velazquez MD [Staff Provider] -
--- NOTE | 2017-10-10 15:44 | CARD ---
APPROVED REPORT EKG Measurement Heart [id number] [place] [id number] [id number] <Conclusion> Normal sinus rhythm Normal ECG
[2017-10-10 16:47] VITALS: BP 115/67; PULSE 73; TEMP 98
[2017-10-10] MEDS ORDERED: (Lantus) Insulin Glargine, Recombinant SC SCH (22:00)
--- NOTE | 2017-10-11 22:50 | CARD ---
APPROVED REPORT EKG Measurement Heart [id number] [place] 150P46 [id number] <Conclusion> Normal sinus rhythm Normal ECG
--- NOTE | 2017-10-11 23:08 | CARD ---
APPROVED REPORT EKG Measurement Heart [id number] [place] [id number] [id number] <Conclusion> Normal sinus rhythm Possible Left atrial enlargement Possible Lateral infarct, age undetermined Abnormal ECG
== END 2017-10-10 19:14 | disposition home or self-care (01) ==
LOC: C.ER 19:49 → C.9E 23:41 → C.6T 10-10 05:51
PROVIDERS: ADMIT Family Medicine; ATTEND Family Medicine
DX: R07.9 Chest pain, unspecified (principal); R53.1 Weakness; I12.0 Hypertensive chronic kidney disease with stage 5 chronic kidney disease or end stage renal disease; Z99.2 Dependence on renal dialysis; N18.6 End stage renal disease; E10.22 Type 1 diabetes mellitus with diabetic chronic kidney disease; K21.9 Gastro-esophageal reflux disease without esophagitis; I27.20 Pulmonary hypertension, unspecified; Z79.4 Long term (current) use of insulin; Z86.73 Personal history of transient ischemic attack (TIA), and cerebral infarction without residual deficits; Z87.891 Personal history of nicotine dependence
CPT/HCPCS: 36415; 71045; 80053; 82948; 83735; 84484; 85025; 85610; 85730; 93005; 96372; 96374; 97116; 97162; 97166; 97530; C9113; G0378; G8978; G8979; G8987; G8988; J1644; J2270

== ENCOUNTER 2017-10-21 17:45 | Inpatient (IN) | payer MEDICARE, OTHER ==
[2017-10-21 17:46] VITALS: BMI 22.4
[2017-10-21 20:08] LABS: BASO # 0.1 K/uL (0.0-0.2); BASO % 2.7 % (0.0-2.0); EOS # 0.1 K/uL (0.0-0.7); EOS % 2.9 % (0.0-4.0); HEMOGLOBIN 10.8 g/dL (11.0-16.0); LYMPH # 1.6 K/uL (1.0-4.3); LYMPH % 31.1 % (20.0-40.0); MEAN CELL VOLUME 90.9 fL (81.0-99.0); MEAN CORPUSCULAR HEMOGLOBIN 30.4 pg (27.0-31.0); MEAN CORPUSCULAR HGB CONC 33.5 g/dL (33.0-37.0); MEAN PLATELET VOLUME 10.4 fL (7.2-11.7); MONO # 0.5 K/uL (0.0-0.8); MONO % 9.1 % (0.0-10.0); NEUT # 2.7 K/uL (1.8-7.0); NEUT % 54.2 % (50.0-75.0); NRBC % 0.1 % (0.0-2.0); RBC 3.56 Mil/uL (3.80-5.20); WHITE BLOOD COUNT 5.1 K/uL (4.8-10.8)
[2017-10-21 20:20] LABS: INR 1.1; PROTHROMBIN TIME 11.9 SECONDS (9.7-12.2)
--- NOTE | 2017-10-21 20:26 | C.PDOC ---
History Of Present Illness 42 y/o female brought to ED by EMS for c/o cramping to legs occurred while at dialysis earlier today. Patient states she had before on left leg and now right leg. Patient only received half of typical dialysis and states symptoms better with movement of legs. Patient denies any other physical complaints at this time. Time Seen by Provider: 10/21/17 19:24 Chief Complaint (Nursing): Lower Extremity Problem/Injury History Per: Patient History/Exam Limitations: no limitations Onset/Duration Of Symptoms: Hrs Current Symptoms Are (Timing): Still Present Past Medical History Reviewed: Historical Data, Nursing Documentation, Vital Signs Vital Signs: Last Vital Signs Temp 97.8 F 10/21/17 17:51 Pulse 72 10/21/17 17:51 Resp 18 10/21/17 17:51 BP 146/65 10/21/17 17:51 Pulse Ox 98 10/21/17 21:51 - Medical History PMH: Anemia, Anxiety, Depression, Diabetes, Fractures (RT ANKLE), GERD, HTN, Pneumonia, End Stage Renal Disease, Chronic Kidney Disease, Seizures (2008) Surgical History: No Surg Hx - [facility] Procedures (07/24/17) DILATION OF R BASILIC VEIN WITH INTRALUM DEV, PERC APPROACH (07/13/16) DILATION OF RIGHT BASILIC VEIN, PERCUTANEOUS APPROACH (05/03/17) DILATION OF UPPER ARTERY, PERCUTANEOUS APPROACH (07/24/17) EXTIRPATION OF MATTER FROM RIGHT BASILIC VEIN, PERC APPROACH (07/13/16) FLUOROSCOPY OF INF VENA CAVA USING L OSM CONTRAST, GUIDANCE (05/29/16) INDIVIDUAL PSYCHOTHERAPY, COGNITIVE-BEHAVIORAL (10/23/16) INDIVIDUAL PSYCHOTHERAPY, SUPPORTIVE (10/23/16) INSERTION OF INFUSION DEV INTO INF VENA CAVA, PERC APPROACH (05/29/16) INSERTION OF INFUSION DEV INTO SUP VENA CAVA, PERC APPROACH (07/13/16) INSERTION OF INFUSION DEVICE INTO LOWER VEIN, PERC APPROACH (07/24/17) INTRODUCE OTH THROMBOLYTIC IN PERIPH VEIN, PERC (07/13/16) PERFORMANCE OF URINARY FILTRATION, MULTIPLE (01/03/17) REMOVAL OF OTHER DEVICE ON RIGHT INGUINAL REGION (05/29/16) ULTRASONOGRAPHY OF INFERIOR VENA CAVA, GUIDANCE (07/13/16) Family History: States: No Known Family Hx - Social History Hx Tobacco Use: Yes Hx Alcohol Use: No Hx Substance Use: No - Immunization History Hx Tetanus Toxoid Vaccination: No Hx Influenza Vaccination: Yes Hx Pneumococcal Vaccination: No Review Of Systems Constitutional: Negative for: Fever, Chills Gastrointestinal: Negative for: Nausea, Vomiting Musculoskeletal: Positive for: Leg Pain Skin: Negative for: Rash Neurological: Negative for: Weakness, Numbness Physical Exam - Physical Exam Appears: Non-toxic, No Acute Distress Skin: Warm, Dry, No Rash Head: Atraumatic, Normacephalic Eye(s): bilateral: Normal Inspection Oral Mucosa: Moist Neck: Normal ROM, Supple Cardiovascular: Rhythm Regular Respiratory: Normal Breath Sounds, No Rales, No Rhonchi, No Wheezing Gastrointestinal/Abdominal: Soft, No Tenderness, No Guarding, No Rebound Extremity: Normal ROM, No Pedal Edema, Capillary Refill (<2 seconds), No Swelling Pulses: Left Dorsalis Pedis: Normal, Right Dorsalis Pedis: Normal Neurological/Psych: Oriented x3, Normal Motor, Normal Sensation ED Course And Treatment - Laboratory Results Result Diagrams: 10/21/17 20:03 10/21/17 20:03 Lab Interpretation: Abnormal (calcium 10.0 (high is 10.4, prior adm 11.4) ECG: Interpreted By Me ECG Rhythm: Sinus Rhythm O2 Sat by Pulse Oximetry: 98 (RA) Pulse Ox Interpretation: Normal - Radiology CXR: Interpreted by Me CXR Interpretation: Yes: No Acute Disease - Other Rad CXR X-Ray: Interpreted by Me, Viewed By Me Interpretation: - Normal Findings. - No infiltrates Progress Note: Tramadol PO Reevaluation Time: 20:53 Reassessment Condition: Improved - Physician Consult Information Outcome Of Conversation: 2100: d/w Dr. Pierda, Hospitalist covering [facility] pt's, ok to admit. Medical Decision Making Medical Decision Making: suspected hypercalcemia (h/o same recent adm 09/20/17) but calcium still in normal range 10.0 (high end of range is 10.4) f/u Phosphorous level Renal Consult- Dr. Shi prior consult Disposition Doctor Will See Patient In The: Hospital Counseled Patient/Family Regarding: Studies Performed, Diagnosis - Disposition Disposition: HOSPITALIZED Disposition Time: 20:55 Condition: GOOD - Clinical Impression Clinical Impression: Bilateral leg cramps - Scribe Statement The provider has reviewed the documentation as recorded by the Yoandyibsiena Monet All medical record entries made by the Scribe were at my direction and personally dictated by me. I have reviewed the chart and agree that the record accurately reflects my personal performance of the history, physical exam, medical decision making, and the department course for this patient. I have also personally directed, reviewed, and agree with the discharge instructions and disposition.
[2017-10-21 20:37] LABS: ALB/GLOB RATIO 1.4 (1.0-2.1); ALBUMIN 4.8 g/dL (3.5-5.0); ALT/SGPT 16 U/L (9-52); AST/SGOT 30 U/L (14-36); BLOOD UREA NITROGEN 35 mg/dL (7-17); GFR AFRICAN-AMERICAN 8; GFR NON-AFRICAN AMERICAN 6
[2017-10-21 20:41] LABS: B-TYPE NATRIURETIC PEPTIDE 13300 pg/mL (0-450)
--- NOTE | 2017-10-21 22:30 | CP.PCM.HP ---
<Bhavani Calix - Last Filed: 10/22/17 03:15> History of Present Illness - History of Present Illness History of Present Illness: HPI: Patient is a 42 year old female with a past medical history of HTN, DM, ESRD on HD (MWF), anxiety, depression, anemia, and CVA, who presents to the hospital with complaints of leg cramps. The patient was getting dialysis this afternoon when she started to develop leg cramps. She had 1 hour 40 minutes of dialysis, 1.7 Liters removed, and then had to stop due to the leg pain. She was then brought to the ED by ambulance. She has had 1 prior episode 1 month ago and was prescribed lyrica. She describes the pain as cramping and states that her legs "move/jump" randomly. She says she occasionally has cramping in her hands, but currently does not. The patient denies chest pain, palpitations, sob , cough, abdominal pain, nausea, vomiting, fevers, headaches, vision changes, recent illness/sick contacts, and dizziness. PMD: [facility] at [facility] Drug Worker: Dr. Velazquez Web Operations Administrator: Dr. Stacy PMHx: HTN, DM, ESRD on HD (MWF), anxiety, depression, anemia, and CVA with right hand weakness(2008); 1 episode of seizures in 2008 ("due to htn", does not take medication) SurgHx: Right AVF ~2 years ago; AV fistula left UE became infected in 2006; B/l cataracts, R. retina surgery, Embolectomy from [place], FamHx: Father- prostate cancer, Heart disease; Motther- DM/ESRD SocHx: denies tobacco, alcohol, and drug use; lives with family- parents and siblings in ; unemployed. Allergies: NKDA Medications: Humalog 4 units before meals, Lantus 6 units HS, Labetolol 300 mg PO BID, Minoxidil 10 mg PO BID, Clonidine 0.2 mg PO BID, Lyrica 50 mg PO HS, Sensipar 90 mg daily, Renvela 3 tabs TID Present on Admission - Present on Admission Any Indicators Present on Admission: No Review of Systems - Constitutional Constitutional: absent: Chills, Fever, Headache, Weakness - EENT Eyes: absent: Change in Vision Ears: absent: Dizziness Nose/Mouth/Throat: absent: Sore Throat - Cardiovascular Cardiovascular: absent: Chest Pain, Dyspnea, Edema, Leg Edema, Palpitations, Rapid Heart Rate - Respiratory Respiratory: absent: Cough, Dyspnea - Gastrointestinal Gastrointestinal: Constipation (chronic). absent: Abdominal Pain, Diarrhea, Nausea, Vomiting - Genitourinary Additional comments: Anuric for 3 years - Musculoskeletal Musculoskeletal: Muscle Cramps (bilateral LE). absent: Numbness, Tingling - Integumentary Integumentary: absent: Rash - Neurological Neurological: Abnormal Gait (chronic- walks with foot braces b/l; right foot drop), Abnormal Movements (bilateral LE "move/jump" when they cramp). absent: Dizziness, Numbness, Frequent Falls, Headaches, Paresthesias, Sensory Deficit, Tingling, Weakness - Endocrine Endocrine: absent: Palpitations Past Patient History - Infectious Disease Hx of Infectious Diseases: None - Past Medical History & Family History Past Medical History?: Yes - Past Social History Smoking Status: Never Smoked - CARDIAC Hx Hypertension: Yes - PULMONARY Hx Pneumonia: Yes - NEUROLOGICAL Hx Seizures: Yes (2008) - HEENT Hx HEENT Problems: Yes Hx Cataracts: Yes (HAD CUATE CATARACT SURGERY) - RENAL Hx Chronic Kidney Disease: Yes - ENDOCRINE/METABOLIC Hx Endocrine Disorders: Yes Hx Diabetes Mellitus Type 2: Yes - HEMATOLOGICAL/ONCOLOGICAL Hx Anemia: Yes - INTEGUMENTARY Hx Dermatological Problems: No - MUSCULOSKELETAL/RHEUMATOLOGICAL Hx Fractures: Yes (RT ANKLE) - GASTROINTESTINAL Hx Gastrointestinal Disorders: Yes Hx Ulcer: Yes - PSYCHIATRIC Hx Anxiety: Yes Hx Depression: Yes Hx Substance Use: No - SURGICAL HISTORY Hx Surgeries: Yes Hx Arteriovenous Shunt: Yes (NON FUNC MITZI, NEW SIDNEY) Hx Cataract Extraction: Yes Hx Eye Surgery: Yes (RETINA RT) Hx Vascular Access Device: Yes (LEFT AV FISTULA) - ANESTHESIA Hx Anesthesia: Yes Hx Anesthesia Reactions: No Hx Malignant Hyperthermia: No Meds Allergies/Adverse Reactions: Allergies Allergy/AdvReac Type Severity Reaction Status Date / Time No Known Allergies Allergy Verified 10/09/17 20:01 Physical Exam - Constitutional Appears: No Acute Distress - Head Exam Head Exam: ATRAUMATIC, NORMAL INSPECTION - Eye Exam Eye Exam: EOMI, PERRL Additional comments: Right eye pyterigium - ENT Exam ENT Exam: Mucous Membranes Moist - Neck Exam Neck exam: Positive for: Full Rom, Normal Inspection. Negative for: Lymphadenopathy, Tenderness - Respiratory Exam Respiratory Exam: Clear to Auscultation Bilateral, NORMAL BREATHING PATTERN. absent: Rales, Rhonchi, Wheezes, Respiratory Distress - Cardiovascular Exam Cardiovascular Exam: REGULAR RHYTHM, +S1, +S2, Systolic Murmur. absent: Bradycardia, Tachycardia - GI/Abdominal Exam GI & Abdominal Exam: Normal Bowel Sounds, Soft. absent: Distended, Firm, Guarding, Tenderness - Extremities Exam Extremities exam: Positive for: pedal pulses present. Negative for: pedal edema , tenderness Additional comments: Abnormal gait- wears foot braces bilaterally; RLE: foot drop, foot arch abnormality due to trauma; 5/5 strength LLE: scar on dorsal foot; 5/5 strength RUE: weak hand stem assembler, 5/5 flexion/extension; AVF present- +thrill LUE: 5/5 hand stem assembler/flexion/extension; healed scar from previous AVF Normal reflexes - Back Exam Back exam: absent: CVA tenderness (L), CVA tenderness (R), FULL ROM, tenderness Additional comments: Well healed scar from thoracentesis in 2014 - Neurological Exam Neurological exam: Abnormal Gait (foot drop; wears bilateral foot brace), Alert , CN II-XII Intact, Oriented x3, Reflexes Normal Additional comments: RLE: foot drop,4/5 strength of foor dorsi and plantar flexion, otherwise 5/5 strength LLE: scar on dorsal foot; 5/5 strength in all motions RUE: 4/5 hand stem assembler, 5/5 flexion/extension LUE: 5/5 hand stem assembler/flexion/extension Sensation intact - Psychiatric Exam Psychiatric exam: Normal Mood - Skin Skin Exam: Dry, Intact, Normal Color, Warm Additional comments: Multiple well healed scars throughout body- patient states theyre from "scratches/falls over many years" Results - Vital Signs Recent Vital Signs: Last Vital Signs Temp 98.2 F 10/21/17 22:04 Pulse 69 10/21/17 22:04 Resp 16 10/21/17 22:04 BP 132/63 10/21/17 22:04 Pulse Ox 95 10/21/17 22:04 - Labs Result Diagrams: 10/21/17 20:03 10/21/17 20:03 Labs: Laboratory Results - last 24 hr 10/21/17 10/21/17 10/21/17 20:03 20:03 20:03 WBC 5.1 RBC 3.56 L Hgb 10.8 L Hct 32.3 L MCV 90.9 MCH 30.4 MCHC 33.5 RDW 14.0 Plt Count 142 MPV 10.4 Neut % (Auto) 54.2 Lymph % (Auto) 31.1 [place] % (Auto) 9.1 Eos % (Auto) 2.9 Baso % (Auto) 2.7 H Neut # (Auto) 2.7 Lymph # (Auto) 1.6 [place] # (Auto) 0.5 Eos # (Auto) 0.1 Baso # (Auto) 0.1 PT 11.9 INR 1.1 APTT 35 H Sodium 137 Potassium 4.6 Chloride 92 L Carbon Dioxide 29 Anion Gap 20 BUN 35 H Creatinine 7.1 H Est GFR ( Amer) 8 Est GFR (Non-Af Amer) 6 Random Glucose 196 H Calcium 10.0 Magnesium 2.2 Total Bilirubin 0.7 AST 30 ALT 16 Alkaline Phosphatase 76 Troponin I < 0.0120 NT-Pro-B Natriuret Pep 31232 H Total Protein 8.3 Albumin 4.8 Globulin 3.5 Albumin/Globulin Ratio 1.4 Assessment & Plan - Assessment and Plan (Free Text) Plan: Leg cramps - Continue home medication: Lyrica 75mg PO HS - Calcium is within normal range--> continue to monitor - Will not restart Crestor at this time due to complaints of leg cramps - Tylenol prn for pain ESRD on HD MWF - Nephrology consult, Dr. Velazquez on board--> help appreciated - Continue Sensipar 90mg PO Daily CORINA - Continue Sevelamer 1600mg TIDCC - Per patient, had ~1.7L removed on 10/22/17, prior to admission History of Hypercalemia - Currently, calcium is within normal range, 10.0 - At prior admission- 12.4, baseline 8-9 - Continue to monitor Hypertension - Continue home regimen: Labetolol 300 PO twice daily, Minoxidil 10mg PO BID, Clonidine 0.2mg PO BID - Continue to monitor Diabetes Mellitus - Hemoglobin A1c 07/2017 - 6.4 - Accuchecks - Hypoglycemia Protocol - Renal/ Carb Consistent/ Heart healthy diet - Resumed home regimen: Novolog 4 Units AC, Lantus 6 Units HS - ISS Hx of CVA - Was prescribed statin previously, patient is not taking at home - Did not restart Crestor 10mg PO QHS at this time due to complaints of leg cramps Hx of Paresthesia/Neuropathic pain (Hands, Arm, Neck) - Continue home regimen: Lyrica 75mg PO HS Hx of Depression - not currently on medication Prophylaxis - DVT: SCDs, Heparin 5000u SC Q8H - GI: not indicated - Colace 100mg PO BID for chronic constipation <Arturo Piedra - Last Filed: 10/22/17 06:37> Results - Vital Signs Recent Vital Signs: Last Vital Signs Temp 97.4 F L 10/21/17 23:45 Pulse 72 10/21/17 23:45 Resp 20 10/21/17 23:45 BP 144/64 10/21/17 23:45 Pulse Ox 95 10/21/17 23:45 - Labs Result Diagrams: 10/21/17 20:03 10/21/17 20:03 Labs: Laboratory Results - last 24 hr 10/21/17 10/21/17 10/21/17 20:03 20:03 20:03 WBC 5.1 RBC 3.56 L Hgb 10.8 L Hct 32.3 L MCV 90.9 MCH 30.4 MCHC 33.5 RDW 14.0 Plt Count 142 MPV 10.4 Neut % (Auto) 54.2 Lymph % (Auto) 31.1 [place] % (Auto) 9.1 Eos % (Auto) 2.9 Baso % (Auto) 2.7 H Neut # (Auto) 2.7 Lymph # (Auto) 1.6 [place] # (Auto) 0.5 Eos # (Auto) 0.1 Baso # (Auto) 0.1 PT 11.9 INR 1.1 APTT 35 H Sodium 137 Potassium 4.6 Chloride 92 L Carbon Dioxide 29 Anion Gap 20 BUN 35 H Creatinine 7.1 H Est GFR ( Amer) 8 Est GFR (Non-Af Amer) 6 POC Glucose (mg/dL) Random Glucose 196 H Calcium 10.0 Magnesium 2.2 Total Bilirubin 0.7 AST 30 ALT 16 Alkaline Phosphatase 76 Troponin I < 0.0120 NT-Pro-B Natriuret Pep 99020 H Total Protein 8.3 Albumin 4.8 Globulin 3.5 Albumin/Globulin Ratio 1.4 10/21/17 22:26 WBC RBC Hgb Hct MCV MCH MCHC RDW Plt Count MPV Neut % (Auto) Lymph % (Auto) [place] % (Auto) Eos % (Auto) Baso % (Auto) Neut # (Auto) Lymph # (Auto) [place] # (Auto) Eos # (Auto) Baso # (Auto) PT INR APTT Sodium Potassium Chloride Carbon Dioxide Anion Gap BUN Creatinine Est GFR ( Amer) Est GFR (Non-Af Amer) POC Glucose (mg/dL) 186 H Random Glucose Calcium Magnesium Total Bilirubin AST ALT Alkaline Phosphatase Troponin I NT-Pro-B Natriuret Pep Total Protein Albumin Globulin Albumin/Globulin Ratio Assessment & Plan - Date & Time Date: 10/22/17 (I have seen and examined the patient. I agree with the findings and plan of care as documented by Dr. Calix. Patient with intractable leg cramps. History of hypercalcemia. Continue home meds. Pain may partially attributed to peripheral neuropathy. Gabapentin. Monitor calcium levels due to history of hypercalcemia. Consult nephrology due to history of ESRD. Continue dialysis schedule. Monitor for acute changes.) Time: 06:35 Attending/Attestation - Attestation I have personally seen and examined this patient.: Yes I have fully participated in the care of the patient.: Yes I have reviewed all pertinent clinical information: Yes
[2017-10-22] MEDS ORDERED: Dextrose 50% SYRINGE Inj (50 ml) IV PRN (01:20)
[2017-10-22] MEDS ORDERED: Glucagon Recombinant 1 mg Inj IM PRN (01:20)
[2017-10-22 01:35] VITALS: RESP 20
--- NOTE | 2017-10-22 07:16 | CP.PCM.PN ---
Subjective - Date & Time of Evaluation Date of Evaluation: 10/22/17 Time of Evaluation: 11:00 - Subjective Subjective: PGY-[address] Garza service Pt is seen and examined at bedside. Pt complains of on and off bilateral lower extremity pain that is describes as if leg is "jumping" and tightness. Pt denies the pain getting better compared to time of admission and previous day. Pt denies fevers, chills, chest pain, SOB, nausea or vomiting. Objective - Vital Signs/Intake and Output Vital Signs (last 24 hours): Temp Pulse Resp BP Pulse Ox 97.4 F L 72 20 144/64 95 10/21/17 23:45 10/21/17 23:45 10/21/17 23:45 10/21/17 23:45 10/21/17 23:45 - Medications Medications: Current Medications Acetaminophen (Tylenol 325mg Tab) 650 mg PO Q6 PRN PRN Reason: Pain, moderate (4-7) Cinacalcet (Sensipar) 90 mg PO DAILY [facility] Clonidine HCl (Catapres) 0.2 mg PO BID [facility] Dextrose (Dextrose 50% Inj) 0 ml IV STAT PRN; Protocol PRN Reason: Hypoglycemia Protocol Dextrose (Glutose 15) 15 gm PO ONCE PRN; Protocol PRN Reason: Hypoglycemia Protocol Docusate Sodium (Colace) 100 mg PO BID PRN PRN Reason: Constipation Glucagon (Glucagen Diagnostic Kit) 0 mg IM STAT PRN; Protocol PRN Reason: Hypoglycemia Protocol Heparin Sodium (Porcine) (Heparin) 5,000 units SC Q8 [facility] Dextrose (Dextrose 5% In Water 1000 Ml) 1,000 mls @ 0 mls/hr IV .Q0M PRN; Protocol; Per Protocol PRN Reason: Hypoglycemia Protocol Insulin Aspart (Novolog) 4 unit SC ACTID [facility] Insulin Glargine (Lantus) 6 unit SC HS [facility] Insulin Human Regular (Novolin R) 0 unit SC ACHS [facility] PRN Reason: Protocol Labetalol HCl (Normodyne) 300 mg PO BID [facility] Minoxidil (Loniten) 10 mg PO BID [facility] Pneumococcal Polyvalent Vaccine (Pneumovax 23 Vaccine) 0.5 ml IM .ONCE ONE Stop: 10/24/17 14:01 Pregabalin (Lyrica) 75 mg PO HS [facility] Last Admin: 10/22/17 01:41 Dose: 75 mg Sevelamer Carbonate (Renvela) 1,600 mg PO TIDCC [facility] - Labs Labs: 10/21/17 20:03 10/21/17 20:03 PT 11.9 SECONDS (9.7-12.2) 10/21/17 20:03 INR 1.1 10/21/17 20:03 APTT 35 SECONDS (21-34) H 10/21/17 20:03 - Constitutional Appears: Non-toxic, No Acute Distress - Head Exam Head Exam: ATRAUMATIC, NORMAL INSPECTION - Eye Exam Eye Exam: EOMI, Normal appearance - Neck Exam Neck Exam: Full ROM, Normal Inspection - Respiratory Exam Respiratory Exam: Clear to Ausculation Bilateral, NORMAL BREATHING PATTERN - Cardiovascular Exam Cardiovascular Exam: REGULAR RHYTHM, +S1, +S2 - GI/Abdominal Exam GI & Abdominal Exam: Soft, Normal Bowel Sounds. absent: Distended, Tenderness - Extremities Exam Extremities Exam: Full ROM, Normal Inspection. absent: Calf Tenderness, Joint Swelling, Tenderness - Neurological Exam Neurological Exam: Alert, Awake, Oriented x3 - Psychiatric Exam Psychiatric exam: Normal Affect, Normal Mood - Skin Skin Exam: Intact, Normal Color
[2017-10-22] MEDS ORDERED: (Novolin R) Insulin Human Regular 100 units/ml vial SC SCH (07:30)
[2017-10-22 07:32] LABS: BASO # 0.1 K/uL (0.0-0.2); BASO % 1.9 % (0.0-2.0); EOS # 0.2 K/uL (0.0-0.7); EOS % 4.2 % (0.0-4.0); HEMOGLOBIN 10.6 g/dL (11.0-16.0); LYMPH # 1.7 K/uL (1.0-4.3); MEAN CELL VOLUME 92.1 fL (81.0-99.0); MEAN CORPUSCULAR HEMOGLOBIN 30.8 pg (27.0-31.0); MEAN CORPUSCULAR HGB CONC 33.5 g/dL (33.0-37.0); MEAN PLATELET VOLUME 11.3 fL (7.2-11.7); MONO # 0.6 K/uL (0.0-0.8); MONO % 11.3 % (0.0-10.0); NEUT # 2.5 K/uL (1.8-7.0); NEUT % 48.6 % (50.0-75.0); RBC 3.44 Mil/uL (3.80-5.20); RED CELL DISTRIBUTION WIDTH 14.2 % (11.5-14.5)
[2017-10-22 08:17] LABS: ALB/GLOB RATIO 1.5 (1.0-2.1); ALBUMIN 4.8 g/dL (3.5-5.0); CALCIUM 9.9 mg/dl (8.6-10.4)
[2017-10-22] MEDS: (Novolog) Insulin Aspart, Recombinant 100 u/ml 10 ml vial SC SCH ×3 (09:20→16:27)
--- NOTE | 2017-10-22 10:14 | CP.PCM.CON ---
History of Present Illness - History of Present Illness History of Present Illness: Illness History of Present Illness: HPI: Patient is a 42 year old female with a past medical history of HTN, DM, ESRD on HD (MWF), anxiety, depression, anemia, and CVA, who presents to the hospital with complaints of leg cramps. The patient was getting dialysis this afternoon when she started to develop leg cramps. She had 1 hour 40 minutes of dialysis, 1.7 Liters removed, and then had to stop due to the leg pain. She was then brought to the ED by ambulance. She has had 1 prior episode 1 month ago and was prescribed lyrica. She describes the pain as cramping and states that her legs "move/jump" randomly. She says she occasionally has cramping in her hands, but currently does not. The patient denies chest pain, palpitations, sob , cough, abdominal pain, nausea, vomiting, fevers, headaches, vision changes, recent illness/sick contacts, and dizziness. PMD: [facility] at [facility] [employer] Salesperson: Dr. Velazquez Real Estate Office Manager: Dr. Stacy PMHx: HTN, DM, ESRD on HD (MWF), anxiety, depression, anemia, and CVA with right hand weakness(2008); 1 episode of seizures in 2008 ("due to htn", does not take medication) SurgHx: Right AVF ~2 years ago; AV fistula left UE became infected in 2006; B/l cataracts, R. retina surgery, Embolectomy from [place], FamHx: Father- prostate cancer, Heart disease; Motther- DM/ESRD SocHx: denies tobacco, alcohol, and drug use; lives with family- parents and siblings in ; unemployed. Allergies: NKDA Medications: Humalog 4 units before meals, Lantus 6 units HS, Labetolol 300 mg PO BID, Minoxidil 10 mg PO BID, Clonidine 0.2 mg PO BID, Lyrica 50 mg PO HS, Sensipar 90 mg daily, Renvela 3 tabs TID Review of Systems - Review of Systems All systems: reviewed and no additional remarkable complaints except - Musculoskeletal Musculoskeletal: Muscle Cramps, Myalgias Past Patient History - Infectious Disease Hx of Infectious Diseases: None - Past Medical History & Family History Past Medical History?: Yes - Past Social History Smoking Status: Never Smoked Chewing Tobacco Use: No Cigar Use: No Alcohol: None Drugs: Denies Home Situation {Lives}: Alone - CARDIAC Hx Hypertension: Yes - PULMONARY Hx Pneumonia: Yes - NEUROLOGICAL Hx Seizures: Yes (2008) - HEENT Hx HEENT Problems: Yes Hx Cataracts: Yes (HAD CUATE CATARACT SURGERY) - RENAL Hx Chronic Kidney Disease: Yes - ENDOCRINE/METABOLIC Hx Endocrine Disorders: Yes Hx Diabetes Mellitus Type 2: Yes - HEMATOLOGICAL/ONCOLOGICAL Hx Anemia: Yes - INTEGUMENTARY Hx Dermatological Problems: No - MUSCULOSKELETAL/RHEUMATOLOGICAL Hx Fractures: Yes (RT ANKLE) - GASTROINTESTINAL Hx Gastrointestinal Disorders: Yes Hx Ulcer: Yes - PSYCHIATRIC Hx Anxiety: Yes Hx Depression: Yes Hx Substance Use: No - SURGICAL HISTORY Hx Surgeries: Yes Hx Arteriovenous Shunt: Yes (NON FUNC MITZI, NEW SIDNEY) Hx Cataract Extraction: Yes Hx Eye Surgery: Yes (RETINA RT) Hx Vascular Access Device: Yes (LEFT AV FISTULA) - ANESTHESIA Hx Anesthesia: Yes Hx Anesthesia Reactions: No Hx Malignant Hyperthermia: No Meds Allergies/Adverse Reactions: Allergies Allergy/AdvReac Type Severity Reaction Status Date / Time No Known Allergies Allergy Verified 10/09/17 20:01 - Medications Medications: Current Medications Acetaminophen (Tylenol 325mg Tab) 650 mg PO Q6 PRN PRN Reason: Pain, moderate (4-7) Cinacalcet (Sensipar) 90 mg PO DAILY [facility] Clonidine HCl (Catapres) 0.2 mg PO BID [facility] Dextrose (Dextrose 50% Inj) 0 ml IV STAT PRN; Protocol PRN Reason: Hypoglycemia Protocol Dextrose (Glutose 15) 15 gm PO ONCE PRN; Protocol PRN Reason: Hypoglycemia Protocol Docusate Sodium (Colace) 100 mg PO BID PRN PRN Reason: Constipation Glucagon (Glucagen Diagnostic Kit) 0 mg IM STAT PRN; Protocol PRN Reason: Hypoglycemia Protocol Heparin Sodium (Porcine) (Heparin) 5,000 units SC Q8 [facility] Last Admin: 10/22/17 07:48 Dose: 5,000 units Dextrose (Dextrose 5% In Water 1000 Ml) 1,000 mls @ 0 mls/hr IV .Q0M PRN; Protocol; Per Protocol PRN Reason: Hypoglycemia Protocol Insulin Aspart (Novolog) 4 unit SC ACTID [facility] Last Admin: 10/22/17 09:20 Dose: Not Given Insulin Glargine (Lantus) 6 unit SC HS [facility] Labetalol HCl (Normodyne) 300 mg PO BID [facility] Minoxidil (Loniten) 10 mg PO BID [facility] Pneumococcal Polyvalent Vaccine (Pneumovax 23 Vaccine) 0.5 ml IM .ONCE ONE Stop: 10/24/17 14:01 Pregabalin (Lyrica) 75 mg PO HS [facility] Last Admin: 10/22/17 01:41 Dose: 75 mg Sevelamer Carbonate (Renvela) 1,600 mg PO TIDCC [facility] Last Admin: 10/22/17 09:19 Dose: 1,600 mg Physical Exam - Constitutional Appears: No Acute Distress, Chronically Ill - Head Exam Head Exam: ATRAUMATIC, NORMAL INSPECTION - Eye Exam Eye Exam: EOMI, Normal appearance - Neck Exam Neck exam: Positive for: Normal Inspection. Negative for: Tenderness - Respiratory Exam Respiratory Exam: Clear to Auscultation Bilateral, NORMAL BREATHING PATTERN - Cardiovascular Exam Cardiovascular Exam: REGULAR RHYTHM, +S1 - GI/Abdominal Exam GI & Abdominal Exam: Soft. absent: Tenderness - Extremities Exam Extremities exam: Positive for: normal inspection. Negative for: tenderness - Neurological Exam Neurological exam: Alert, CN II-XII Intact - Skin Skin Exam: Dry, Warm Results - Vital Signs Recent Vital Signs: Last Vital Signs Temp 98.2 F 10/22/17 08:26 Pulse 74 10/22/17 08:26 Resp 20 10/22/17 08:26 BP 128/61 10/22/17 08:26 Pulse Ox 95 10/22/17 08:26 - Labs Result Diagrams: 10/22/17 07:08 10/22/17 07:08 Labs: Laboratory Results - last 24 hr 10/21/17 10/21/17 10/21/17 20:03 20:03 20:03 WBC 5.1 RBC 3.56 L Hgb 10.8 L Hct 32.3 L MCV 90.9 MCH 30.4 MCHC 33.5 RDW 14.0 Plt Count 142 MPV 10.4 Neut % (Auto) 54.2 Lymph % (Auto) 31.1 Bibb % (Auto) 9.1 Eos % (Auto) 2.9 Baso % (Auto) 2.7 H Neut # (Auto) 2.7 Lymph # (Auto) 1.6 Bibb # (Auto) 0.5 Eos # (Auto) 0.1 Baso # (Auto) 0.1 PT 11.9 INR 1.1 APTT 35 H Sodium 137 Potassium 4.6 Chloride 92 L Carbon Dioxide 29 Anion Gap 20 BUN 35 H Creatinine 7.1 H Est GFR ( Amer) 8 Est GFR (Non-Af Amer) 6 POC Glucose (mg/dL) Random Glucose 196 H Calcium 10.0 Phosphorus Magnesium 2.2 Total Bilirubin 0.7 AST 30 ALT 16 Alkaline Phosphatase 76 Troponin I < 0.0120 NT-Pro-B Natriuret Pep 30794 H Total Protein 8.3 Albumin 4.8 Globulin 3.5 Albumin/Globulin Ratio 1.4 10/21/17 10/22/17 10/22/17 22:26 07:08 07:08 WBC 5.0 RBC 3.44 L Hgb 10.6 L Hct 31.6 L MCV 92.1 MCH 30.8 MCHC 33.5 RDW 14.2 Plt Count 133 MPV 11.3 Neut % (Auto) 48.6 L Lymph % (Auto) 34.0 Bibb % (Auto) 11.3 H Eos % (Auto) 4.2 H Baso % (Auto) 1.9 Neut # (Auto) 2.5 Lymph # (Auto) 1.7 Bibb # (Auto) 0.6 Eos # (Auto) 0.2 Baso # (Auto) 0.1 PT INR APTT Sodium 137 Potassium 4.6 Chloride 92 L Carbon Dioxide 28 Anion Gap 22 H BUN 41 H Creatinine 8.3 H* Est GFR ( Amer) 6 Est GFR (Non-Af Amer) 5 POC Glucose (mg/dL) 186 H Random Glucose 177 H Calcium 9.9 Phosphorus 6.3 H Magnesium 2.3 Total Bilirubin 0.8 AST 21 ALT 17 Alkaline Phosphatase 73 Troponin I NT-Pro-B Natriuret Pep Total Protein 8.0 Albumin 4.8 Globulin 3.2 Albumin/Globulin Ratio 1.5 10/22/17 07:53 WBC RBC Hgb Hct MCV MCH MCHC RDW Plt Count MPV Neut % (Auto) Lymph % (Auto) Bibb % (Auto) Eos % (Auto) Baso % (Auto) Neut # (Auto) Lymph # (Auto) Bibb # (Auto) Eos # (Auto) Baso # (Auto) PT INR APTT Sodium Potassium Chloride Carbon Dioxide Anion Gap BUN Creatinine Est GFR ( Amer) Est GFR (Non-Af Amer) POC Glucose (mg/dL) 164 H Random Glucose Calcium Phosphorus Magnesium Total Bilirubin AST ALT Alkaline Phosphatase Troponin I NT-Pro-B Natriuret Pep Total Protein Albumin Globulin Albumin/Globulin Ratio Assessment & Plan (1) ESRD (end stage renal disease) Status: Acute (2) Hypertensive chronic kidney disease with stage 5 chronic kidney disease or end stage renal disease Status: Acute (3) Secondary hyperparathyroidism Status: Acute (4) Secondary hyperparathyroidism Status: Acute - Assessment and Plan (Free Text) Plan: to repeat labs Ca level acceptable HD MWF
--- NOTE | 2017-10-22 10:27 | RAD ---
HISTORY: adm COMPARISON: Chest radiograph dated 10/09/2017. FINDINGS: LUNGS: Pulmonary vascular congestion. No focal consolidation. PLEURA: No significant pleural effusion identified, no pneumothorax apparent. CARDIOVASCULAR: Normal. OSSEOUS STRUCTURES: Unchanged. VISUALIZED UPPER ABDOMEN: Normal. OTHER FINDINGS: None. IMPRESSION: Pulmonary vascular congestion. No focal consolidation or pleural effusion.
[2017-10-22] MEDS: Labetalol Hydrochloride 300 mg Tab PO SCH ×2 (11:07→17:23)
[2017-10-22 16:29] VITALS: BP 137/63; PULSE 78; TEMP 97.6; O2SAT 98
--- NOTE | 2017-10-22 19:53 | CP.PCM.DIS ---
Provider - Provider Date of Admission: 10/21/17 20:55 Attending physician: Arturo Piedra MD Time Spent in preparation of Discharge (in minutes): 35 Diagnosis - Discharge Diagnosis (1) Bilateral leg cramps Status: Acute Hospital Course - Lab Results Lab Results: Most Recent Lab Values WBC 5.0 K/uL (4.8-10.8) 10/22/17 07:08 RBC 3.44 Mil/uL (3.80-5.20) L 10/22/17 07:08 Hgb 10.6 g/dL (11.0-16.0) L 10/22/17 07:08 Hct 31.6 % (34.0-47.0) L 10/22/17 07:08 MCV 92.1 fL (81.0-99.0) 10/22/17 07:08 MCH 30.8 pg (27.0-31.0) 10/22/17 07:08 MCHC 33.5 g/dL (33.0-37.0) 10/22/17 07:08 RDW 14.2 % (11.5-14.5) 10/22/17 07:08 Plt Count 133 K/uL (130-400) 10/22/17 07:08 MPV 11.3 fL (7.2-11.7) 10/22/17 07:08 Neut % (Auto) 48.6 % (50.0-75.0) L 10/22/17 07:08 Lymph % (Auto) 34.0 % (20.0-40.0) 10/22/17 07:08 [place] % (Auto) 11.3 % (0.0-10.0) H 10/22/17 07:08 Eos % (Auto) 4.2 % (0.0-4.0) H 10/22/17 07:08 Baso % (Auto) 1.9 % (0.0-2.0) 10/22/17 07:08 Neut # (Auto) 2.5 K/uL (1.8-7.0) 10/22/17 07:08 Lymph # (Auto) 1.7 K/uL (1.0-4.3) 10/22/17 07:08 [place] # (Auto) 0.6 K/uL (0.0-0.8) 10/22/17 07:08 Eos # (Auto) 0.2 K/uL (0.0-0.7) 10/22/17 07:08 Baso # (Auto) 0.1 K/uL (0.0-0.2) 10/22/17 07:08 PT 11.9 SECONDS (9.7-12.2) 10/21/17 20:03 INR 1.1 10/21/17 20:03 APTT 35 SECONDS (21-34) H 10/21/17 20:03 Sodium 137 mmol/L (132-148) 10/22/17 07:08 Potassium 4.6 mmol/L (3.6-5.2) 10/22/17 07:08 Chloride 92 mmol/L (98-107) L 10/22/17 07:08 Carbon Dioxide 28 mmol/L (22-30) 10/22/17 07:08 Anion Gap 22 (10-20) H 10/22/17 07:08 BUN 41 mg/dL (7-17) H 10/22/17 07:08 Creatinine 8.3 mg/dL (0.7-1.2) H* 10/22/17 07:08 Est GFR ( Amer) 6 10/22/17 07:08 Est GFR (Non-Af Amer) 5 10/22/17 07:08 POC Glucose (mg/dL) 206 mg/dL (65-110) H 10/22/17 16:43 Random Glucose 177 mg/dL (65-105) H 10/22/17 07:08 Calcium 9.9 mg/dl (8.6-10.4) 10/22/17 07:08 Phosphorus 6.3 mg/dL (2.5-4.5) H 10/22/17 07:08 Magnesium 2.3 mg/dL (1.6-2.3) 10/22/17 07:08 Total Bilirubin 0.8 mg/dL (0.2-1.3) 10/22/17 07:08 AST 21 U/L (14-36) 10/22/17 07:08 ALT 17 U/L (9-52) 10/22/17 07:08 Alkaline Phosphatase 73 U/L (38-126) 10/22/17 07:08 Troponin I < 0.0120 ng/mL (0.00-0.120) 10/21/17 20:03 NT-Pro-B Natriuret Pep 93196 pg/mL (0-450) H 10/21/17 20:03 Total Protein 8.0 g/dL (6.3-8.3) 10/22/17 07:08 Albumin 4.8 g/dL (3.5-5.0) 10/22/17 07:08 Globulin 3.2 gm/dL (2.2-3.9) 10/22/17 07:08 Albumin/Globulin Ratio 1.5 (1.0-2.1) 10/22/17 07:08 - Hospital Course Hospital Course: On admission: Patient is a 42 year old female with a past medical history of HTN, DM, ESRD on HD (MWF), anxiety, depression, anemia, and CVA, who presents to the hospital with complaints of leg cramps. The patient was getting dialysis this afternoon when she started to develop leg cramps. She had 1 hour 40 minutes of dialysis, 1.7 Liters removed, and then had to stop due to the leg pain. She was then brought to the ED by ambulance. She has had 1 prior episode 1 month ago and was prescribed lyrica. She describes the pain as cramping and states that her legs "move/jump" randomly. She says she occasionally has cramping in her hands, but currently does not. The patient denies chest pain, palpitations, sob, cough, abdominal pain, nausea, vomiting, fevers, headaches, vision changes, recent illness/sick contacts, and dizziness. On Hospitalization: Patient was admitted to the floors for further evaluation of bilateral leg cramp. CMP and CBC were ordered, results came back within normal limits based on patient's baseline. Portable Chest Xray was ordered showing pulmonary vascular congestion and no consolidation or pleural effusion. Mg and Phosp were ordered. results came back negative. Pt is on hemodialysis on MWF. Nephrology was consulted with Dr Velazquez, which ordered repeat labs. Patient was continued on Sensipar 90mg PO Daily [facility] and Sevelamer 1600mg TIDCC. Patient was discontinued on Crestor due to the leg cramps. Calcium was ordered and results came back within normal range. Patient history of Hypertension was continued to be controlled with home regime: Labetolol 300 PO twice daily, Minoxidil 10mg PO BID, Clonidine 0.2mg PO BID. Patient history of Diabetes Mellitus was monitored with accuchecks. Her Hemoglobin A1C is 6.4. Patient was initiated in Renal diet/ heart healthy/ carb consitent diet. Resumed home regimen: Novolog 4 Units AC, Lantus 6 Units HS. On Discharge: Patient is stable to discharge to home as per Dr Garza. Patient is to follow up with [facility] within the next week. Patient will take Lyrica 75 mg by mouth twice a day for 2 weeks and follow up with her Primary medical doctor. Patient will resume her other home medication. Patient will continue diabetic diet. Pt will follow with Insurance Underwriter [employer] Dr Velazquez. Patient will resume her scheduled Dialysis. Pt will return to ED if symptoms reoccur or worsen. Plan was discussed with patient who understands and agrees. This is only a summary for patient's hospitalization. For more detail, please see complete record Discharge Exam - Head Exam Head Exam: ATRAUMATIC, NORMAL INSPECTION - Eye Exam Eye Exam: EOMI, Normal appearance Pupil Exam: NORMAL ACCOMODATION, PERRL - ENT Exam ENT Exam: Normal Exam - Neck Exam Neck exam: Full Rom, Normal Inspection - Respiratory Exam Respiratory Exam: Clear to PA & Lateral, NORMAL BREATHING PATTERN, UNREMARKABLE - Cardiovascular Exam Cardiovascular Exam: REGULAR RHYTHM, +S1, +S2 - GI/Abdominal Exam GI & Abdominal Exam: Normal Bowel Sounds, Unremarkable. absent: Distended, Rebound, Tenderness - Extremities Exam Extremities exam: full ROM - Back Exam Back exam: NORMAL INSPECTION - Neurological Exam Neurological exam: Alert, Normal Gait - Psychiatric Exam Psychiatric exam: Normal Affect, Normal Mood - Skin Skin Exam: Intact, Normal Color Discharge Plan - Discharge Medications Prescriptions: Pregabalin [Lyrica] 75 mg PO BID #28 cap - Follow Up Plan Condition: GOOD Disposition: HOME/ ROUTINE Instructions: Hyperparathyroidism (DC), Pregabalin, End Stage Kidney Disease ( DC), Dialysis and Diet Additional Instructions: Pt is stable to discharge to home as per Dr Garza. Patient is to follow up with [facility] within the next week. Patient will take Lyrica 75 mg by mouth twice a day for 2 weeks and follow up with her Primary medical doctor. Patient will resume her other home medication. Patient will continue diabetic diet. Pt will follow with [employer] Under[employer] Dr Velazquez. Pt will resume her scheduled Dialysis. Pt will return to ED if symptoms reoccur or worsen. Plan was discussed with patient who understands and agrees Referrals: [facility] at [facility] [Outside] Gerry Velazquez MD [Staff Provider] -
[2017-10-22] MEDS ORDERED: (Lantus) Insulin Glargine, Recombinant SC SCH (22:00)
--- NOTE | 2017-10-22 23:24 | CARD ---
APPROVED REPORT EKG Measurement Heart [id number] <Conclusion> Normal sinus rhythm Normal ECG
[2017-10-24] MEDS ORDERED: Pneumococcal 23-Valent Vaccine IM ONE (14:00)
== END 2017-10-22 19:10 | disposition home or self-care (01) | DRG 91 ==
LOC: C.ER 17:45 → C.9E 20:55 → C.5S 22:24
PROVIDERS: ADMIT Family Medicine; ATTEND Family Medicine
DX: R25.2 Cramp and spasm (principal); N18.6 End stage renal disease; I12.0 Hypertensive chronic kidney disease with stage 5 chronic kidney disease or end stage renal disease; N25.81 Secondary hyperparathyroidism of renal origin; T46.6X5A Adverse effect of antihyperlipidemic and antiarteriosclerotic drugs, initial encounter; E11.42 Type 2 diabetes mellitus with diabetic polyneuropathy; E11.22 Type 2 diabetes mellitus with diabetic chronic kidney disease; K21.9 Gastro-esophageal reflux disease without esophagitis; Z79.4 Long term (current) use of insulin; Z86.73 Personal history of transient ischemic attack (TIA), and cerebral infarction without residual deficits; Z99.2 Dependence on renal dialysis; Z87.891 Personal history of nicotine dependence

== ENCOUNTER 2017-11-20 03:42 | Inpatient (IN) | payer MEDICARE, OTHER ==
[2017-11-20 03:43] VITALS: BMI 22.4
--- NOTE | 2017-11-20 03:45 | C.PDOC ---
History Of Present Illness pt felt weak and somewhat dizzy and went to the kitchen to drink some OJ but almost"passed out" father called ems, bs was 24 . Was give 1 amp D50 , with return to baseline. Pt is also a MWF HD patient. No f/c/n/v. Speaking in complete sentences and is AAOX3 Time Seen by Provider: 11/20/17 03:45 History Per: Patient, EMS History/Exam Limitations: no limitations Onset/Duration Of Symptoms: Mins Current Symptoms Are (Timing): Better Severity: Mild Pain Scale Rating Of: 3 Current Diabetic Medications: Insulin Causative (Exacerbating) Factor(s): Other Associated Infectious Symptoms: denies: Cough, Sore Throat Treatment Prior To Provider Evaluation: D50W Given Response To Treatment: Good Response Recent travel outside of the [place]: No Additional History Per: EMS Past Medical History Reviewed: Historical Data, Nursing Documentation, Vital Signs Vital Signs: Last Vital Signs Temp 98 F 11/20/17 05:06 Pulse 69 11/20/17 05:06 Resp 10 L 11/20/17 05:06 BP 139/58 L 11/20/17 05:06 Pulse Ox 95 11/20/17 05:06 - Medical History PMH: Anemia, Anxiety, Depression, Diabetes, Fractures (RT ANKLE), GERD, HTN, Pneumonia, End Stage Renal Disease, Chronic Kidney Disease, Seizures (2008) Denies: Kidney Stones - [facility] Procedures (07/24/17) DILATION OF R BASILIC VEIN WITH INTRALUM DEV, PERC APPROACH (07/13/16) DILATION OF RIGHT BASILIC VEIN, PERCUTANEOUS APPROACH (05/03/17) DILATION OF UPPER ARTERY, PERCUTANEOUS APPROACH (07/24/17) EXTIRPATION OF MATTER FROM RIGHT BASILIC VEIN, PERC APPROACH (07/13/16) FLUOROSCOPY OF INF VENA CAVA USING L OSM CONTRAST, GUIDANCE (05/29/16) INDIVIDUAL PSYCHOTHERAPY, COGNITIVE-BEHAVIORAL (10/23/16) INDIVIDUAL PSYCHOTHERAPY, SUPPORTIVE (10/23/16) INSERTION OF INFUSION DEV INTO INF VENA CAVA, PERC APPROACH (05/29/16) INSERTION OF INFUSION DEV INTO SUP VENA CAVA, PERC APPROACH (07/13/16) INSERTION OF INFUSION DEVICE INTO LOWER VEIN, PERC APPROACH (07/24/17) INTRODUCE OTH THROMBOLYTIC IN PERIPH VEIN, PERC (07/13/16) PERFORMANCE OF URINARY FILTRATION, MULTIPLE (01/03/17) REMOVAL OF OTHER DEVICE ON RIGHT INGUINAL REGION (05/29/16) ULTRASONOGRAPHY OF INFERIOR VENA CAVA, GUIDANCE (07/13/16) Family History: States: No Known Family Hx - Social History Hx Tobacco Use: Yes Hx Alcohol Use: No Hx Substance Use: No - Immunization History Hx Tetanus Toxoid Vaccination: No Hx Influenza Vaccination: Yes Hx Pneumococcal Vaccination: No Review Of Systems Constitutional: Negative for: Fever, Chills Eyes: Negative for: Redness ENT: Negative for: Throat Pain Cardiovascular: Negative for: Chest Pain Respiratory: Negative for: Shortness of Breath Gastrointestinal: Negative for: Nausea, Vomiting, Abdominal Pain Musculoskeletal: Negative for: Back Pain Skin: Negative for: Rash Neurological: Negative for: Weakness Psych: Negative for: Anxiety Physical Exam - Physical Exam Appears: Non-toxic Skin: Warm, Dry Head: Normacephalic Eye(s): bilateral: Normal Inspection Oral Mucosa: Dry Neck: Supple Chest: Symmetrical Cardiovascular: Rhythm Regular Respiratory: No Rales, No Rhonchi, No Wheezing Gastrointestinal/Abdominal: Soft, No Tenderness, No Distention Back: No CVA Tenderness Extremity: No Pedal Edema, Other (av shunt r arm good thrill and bruit, left arm healed old av shunt scar) Extremity: Bilateral: No Pedal Edema Pulses: Left Dorsalis Pedis: Normal, Right Dorsalis Pedis: Normal Neurological/Psych: Oriented x3 Gait: With Assistance (wears braces) ED Course And Treatment - Laboratory Results Result Diagrams: 11/20/17 04:18 11/20/17 04:18 O2 Sat by Pulse Oximetry: 99 Pulse Ox Interpretation: Normal Disposition Discussed With : Arturo Piedra Comment: accepted the pt on his service and took over the care at 5:08 AM Doctor Will See Patient In The: ED Counseled Patient/Family Regarding: Studies Performed, Diagnosis - Disposition Referrals: Kathrine Holloway MD [Primary Care Provider] - Disposition: HOSPITALIZED Disposition Time: 03:45 Condition: GUARDED - POA Present On Arrival: Poor Glycemic Control - Clinical Impression Clinical Impression: Hypoglycemia, ESRD needing dialysis Decision To Admit - Pt Status Changed To: Hospital Disposition Of: Inpatient - Admit Certification Admit to Inpatient:: After my assessment, the patient will require hospitalization for at least two midnights. This is because of the severity of symptoms shown, intensity of services needed, and/or the medical risk in this patient being treated as an outpatient. - InPatient: Physician Admission Certification: I certify that this patient requires 2 or more midnights of care for the following reason:: After my assessment, the patient will require hospitalization for at least two midnights. This is because of the severity of symptoms shown, intensity of services needed, and/or the medical risk in this patient being treated as an outpatient. - . Bed Request Type: Telemetry Admitting Physician: Arturo Piedra Patient Diagnosis: Hypoglycemia, ESRD needing dialysis
[2017-11-20 04:06] LABS: VENOUS BLOOD GAS BASE EXCESS 0.8 mmol/L (0.0-2.0); VENOUS BLOOD GAS PCO2 56 mmHg (40-60); VENOUS BLOOD GAS PO2 35 mm/Hg (30-55); VENOUS BLOOD PH 7.31 (7.32-7.43)
[2017-11-20 04:23] LABS: BASO # 0.1 K/uL (0.0-0.2); BASO % 1.3 % (0.0-2.0); EOS # 0.2 K/uL (0.0-0.7); EOS % 3.9 % (0.0-4.0); HEMOGLOBIN 13.7 g/dL (11.0-16.0); LYMPH # 1.9 K/uL (1.0-4.3); LYMPH % 36.8 % (20.0-40.0); MEAN CELL VOLUME 93.4 fL (81.0-99.0); MEAN CORPUSCULAR HEMOGLOBIN 31.1 pg (27.0-31.0); MEAN CORPUSCULAR HGB CONC 33.3 g/dL (33.0-37.0); MEAN PLATELET VOLUME 11.1 fL (7.2-11.7); MONO # 0.6 K/uL (0.0-0.8); MONO % 10.7 % (0.0-10.0); NEUT # 2.5 K/uL (1.8-7.0); NEUT % 47.3 % (50.0-75.0); RBC 4.41 Mil/uL (3.80-5.20); RED CELL DISTRIBUTION WIDTH 14.5 % (11.5-14.5); WHITE BLOOD COUNT 5.2 K/uL (4.8-10.8)
[2017-11-20 04:40] LABS: ALB/GLOB RATIO 1.3 (1.0-2.1); ALBUMIN 4.4 g/dL (3.5-5.0); CALCIUM 9.6 mg/dl (8.6-10.4)
[2017-11-20] MEDS ORDERED: Dextrose 50% SYRINGE Inj (50 ml) IV STA (05:03)
[2017-11-20] MEDS ORDERED: Dextrose 50% SYRINGE Inj (50 ml) ONE (05:07)
--- NOTE | 2017-11-20 06:04 | CP.PCM.HP ---
<Carter Dominguez E - Last Filed: 11/20/17 06:59> History of Present Illness - History of Present Illness History of Present Illness: CC: Hypoglycemia HPI: Patient is a 42 year old female with past medical history HTN, Type 1 DM, ESRD on HD (MWF), anxiety, depression, anemia, and CVA with right hand weakness( 2008); 1 episode of seizures in 2008 ("due to htn", does not take medication), who presents to the ED via ambulance for hypoglycemic episode. As per patient, she took 3 units of Novolog in the evening time and did not take her scheduled lantus dose at bedtime. Around midnight, she noted mild hypoglycemic symptoms, therefore, she had some food. Subsequently, she went to bed and was woken up with increased symptoms of hypoglycemia; diaphoretic, weakness, chills, tongue numbness. Patient got out of bed and went to the kitchen to grab a sugary drink , however she syncopized before she could grab her drink. Upon waking up, patient remembered being on the floor and not being oriented to place and she was quite confused. During the encounter, patient was AAOX3, but does not recall what happened after she syncopized. Patient admits to chills, weakness, tongue numbness, dizziness, but denies chest pain, palpitations, SOB, N/V, abdominal pain, injury from fall, headache and fecal/urinary incontinence. Code Status: Full Code. Proxy: Father, Saleem, PMD: [facility] at [facility] Trimmer Machine Operator: Dr. Velazquez Cook Morning: Dr. Stacy PMHx: HTN, Type 1 DM, ESRD on HD (MWF), anxiety, depression, anemia, and CVA with right hand weakness(2008); 1 episode of seizures in 2008 ("due to htn", does not take medication) SurgHx: Right AVF ~2 years ago; AV fistula left UE became infected in 2006; B/l cataracts, R. retina surgery, Embolectomy from [place], FamHx: Father- DM, prostate cancer, Heart disease; Motther- DM/ESRD ( ) Medications: Humalog 4 units before meals, Lantus 6 units HS, Labetolol 300 mg PO BID, Minoxidil 10 mg PO BID, Clonidine 0.2 mg PO BID, Lyrica 50 mg PO HS, Sensipar 90 mg daily, Renvela 3 tabs TID Allergies: NKDA SocHx: denies tobacco, alcohol, and drug use; lives with family- parents and siblings in ; unemployed. Present on Admission - Present on Admission Any Indicators Present on Admission: No History of Uncontrolled Diabetes: Yes Review of Systems - Constitutional Constitutional: Chills, Weakness. absent: Headache, Night Sweats - EENT Eyes: absent: Blurred Vision, Change in Vision Ears: Dizziness - Cardiovascular Cardiovascular: Diaphoresis, Lightheadedness. absent: Chest Pain, Chest Pain at Rest, Chest Pain with Activity, Dyspnea, Dyspnea on Exertion, Palpitations - Respiratory Respiratory: absent: Dyspnea - Gastrointestinal Gastrointestinal: absent: Abdominal Pain, Fecal Incontinence, Nausea, Vomiting - Genitourinary Genitourinary: absent: Urinary Incontinence - Reproductive: Female Reproductive:Female: Cycle >35 Days - Musculoskeletal Musculoskeletal: absent: Muscle Weakness, Numbness, Tingling - Neurological Neurological: Confusion, Dizziness, Numbness, Weakness. absent: Headaches, Loss of Vision, Paresthesias, Tingling Additional comments: Tongue numbness - Endocrine Endocrine: Fatigue. absent: Palpitations Past Patient History - Infectious Disease Hx of Infectious Diseases: None - Past Medical History & Family History Past Medical History?: Yes - Past Social History Smoking Status: Never Smoked - CARDIAC Hx Hypertension: Yes - PULMONARY Hx Pneumonia: Yes - NEUROLOGICAL Hx Seizures: Yes (2008) - HEENT Hx HEENT Problems: Yes Hx Cataracts: Yes (HAD CUATE CATARACT SURGERY) - RENAL Hx Chronic Kidney Disease: Yes Hx Kidney Stones: No - ENDOCRINE/METABOLIC Hx Endocrine Disorders: Yes Hx Diabetes Mellitus Type 1: Yes - HEMATOLOGICAL/ONCOLOGICAL Hx Anemia: Yes - INTEGUMENTARY Hx Dermatological Problems: No - MUSCULOSKELETAL/RHEUMATOLOGICAL Hx Fractures: Yes (RT ANKLE) - GASTROINTESTINAL Hx Gastrointestinal Disorders: Yes Hx Ulcer: Yes - PSYCHIATRIC Hx Anxiety: Yes Hx Depression: Yes Hx Substance Use: No - SURGICAL HISTORY Hx Surgeries: Yes Hx Arteriovenous Shunt: Yes (NON FUNC MITZI, NEW SIDNEY) Hx Cataract Extraction: Yes Hx Eye Surgery: Yes (RETINA RT) Hx Vascular Access Device: Yes (LEFT AV FISTULA) - ANESTHESIA Hx Anesthesia: Yes Hx Anesthesia Reactions: No Hx Malignant Hyperthermia: No Meds Allergies/Adverse Reactions: Allergies Allergy/AdvReac Type Severity Reaction Status Date / Time No Known Allergies Allergy Verified 11/20/17 03:44 Physical Exam - Constitutional Appears: No Acute Distress - Head Exam Head Exam: ATRAUMATIC, NORMAL INSPECTION - Eye Exam Eye Exam: EOMI - ENT Exam ENT Exam: Mucous Membranes Dry - Respiratory Exam Respiratory Exam: Clear to Auscultation Bilateral, NORMAL BREATHING PATTERN. absent: Decreased Breath Sounds, Prolonged Expiratory Phase, Rhonchi, Wheezes, Respiratory Distress - Cardiovascular Exam Cardiovascular Exam: REGULAR RHYTHM, +S1, +S2 - GI/Abdominal Exam GI & Abdominal Exam: Normal Bowel Sounds, Soft. absent: Diminished Bowel Sounds , Distended, Firm, Tenderness Additional comments: small Ventral hernia - Extremities Exam Extremities exam: Positive for: normal inspection, pedal pulses present. Negative for: pedal edema Additional comments: Right AVF; Palpable to thrill and Bruit on auscultation - Back Exam Back exam: NORMAL INSPECTION. absent: CVA tenderness (L), CVA tenderness (R) - Neurological Exam Neurological exam: Abnormal Gait, Alert, Oriented x3 Additional comments: (chronic- walks with foot braces b/l; right foot drop), - Psychiatric Exam Psychiatric exam: Normal Affect - Skin Skin Exam: Normal Color Results - Vital Signs Recent Vital Signs: Last Vital Signs Temp 98 F 11/20/17 05:06 Pulse 78 11/20/17 05:40 Resp 14 11/20/17 05:40 BP 181/72 H 11/20/17 05:40 Pulse Ox 97 11/20/17 05:40 - Labs Result Diagrams: 11/20/17 04:18 11/20/17 04:18 Labs: Laboratory Results - last 24 hr 11/20/17 11/20/17 11/20/17 03:50 03:50 04:18 WBC 5.2 RBC 4.41 Hgb 13.7 D Hct 41.2 MCV 93.4 MCH 31.1 H MCHC 33.3 RDW 14.5 Plt Count 114 L MPV 11.1 Neut % (Auto) 47.3 L Lymph % (Auto) 36.8 [place] % (Auto) 10.7 H Eos % (Auto) 3.9 Baso % (Auto) 1.3 Neut # (Auto) 2.5 Lymph # (Auto) 1.9 [place] # (Auto) 0.6 Eos # (Auto) 0.2 Baso # (Auto) 0.1 pO2 35 VBG pH 7.31 L VBG pCO2 56 VBG HCO3 24.6 VBG Total CO2 29.9 H VBG O2 Sat (Calc) 70.8 H VBG Base Excess 0.8 VBG Potassium 4.3 Sodium 136.0 Chloride 99.0 Glucose 135 H Lactate 1.3 Potassium Carbon Dioxide Anion Gap BUN Creatinine Est GFR ( Amer) Est GFR (Non-Af Amer) POC Glucose (mg/dL) 118 H Random Glucose Calcium Total Bilirubin AST ALT Alkaline Phosphatase Total Protein Albumin Globulin Albumin/Globulin Ratio Venous Blood Potassium 4.3 11/20/17 11/20/17 11/20/17 04:18 04:49 05:47 WBC RBC Hgb Hct MCV MCH MCHC RDW Plt Count MPV Neut % (Auto) Lymph % (Auto) [place] % (Auto) Eos % (Auto) Baso % (Auto) Neut # (Auto) Lymph # (Auto) [place] # (Auto) Eos # (Auto) Baso # (Auto) pO2 VBG pH VBG pCO2 VBG HCO3 VBG Total CO2 VBG O2 Sat (Calc) VBG Base Excess VBG Potassium Sodium 140 Chloride 97 L Glucose Lactate Potassium 4.5 Carbon Dioxide 26 Anion Gap 22 H BUN 48 H Creatinine 7.9 H* Est GFR ( Amer) 7 Est GFR (Non-Af Amer) 6 POC Glucose (mg/dL) 67 199 H Random Glucose 133 H Calcium 9.6 Total Bilirubin 0.7 AST 29 ALT 15 Alkaline Phosphatase 70 Total Protein 7.8 Albumin 4.4 Globulin 3.4 Albumin/Globulin Ratio 1.3 Venous Blood Potassium Assessment & Plan (1) Hypoglycemia Assessment and Plan: As per EMS, BS= 24; and was given 1 amp D50 Accuchecks Q2H Hold off anti-diabetic medications Status: Acute (2) ESRD (end stage renal disease) on dialysis Assessment and Plan: Consultation: * Dr. Fiordaliza Copper -HD via Right AVF ( M, W, F) Medications: * Sensipar 90mg PO QD * Renvela 1,600mg PO TID Status: Acute (3) Hypertension Assessment and Plan: Continue home medications: * Clonidine 0.2mg PO BID * Labetalol Hydrochloride 300mg PO BID * Minoxidil 10mg PO BID * Continue to monitor with vital sign Q4H Status: Acute (4) Type 1 diabetes mellitus with diabetic nephropathy Assessment and Plan: Hgb A1C ( 07/23/17): 6.4 F/u HgbA1c Home medication: * Novolog 3 units SC ACTID ( Held) * Lantus 6 units SC HS (Held) - Current management: * ISS low dose * Accuchecks Q2H due hypoglycemic episode Status: Acute (5) Diabetic neuropathy Assessment and Plan: Continue home medication: * Lyrica 75mg PO BID Status: Acute (6) Prophylactic measure Assessment and Plan: GI: Not indicated DVT: SCDs All plans and management discussed with Dr. Piedra Status: Acute <Arturo Piedra - Last Filed: 11/21/17 05:52> Results - Vital Signs Recent Vital Signs: Last Vital Signs Temp 98.5 F 11/21/17 04:10 Pulse 85 11/21/17 04:10 Resp 20 11/21/17 04:10 BP 115/58 L 11/21/17 04:10 Pulse Ox 99 11/21/17 04:10 - Labs Result Diagrams: 11/20/17 04:18 11/20/17 04:18 Labs: Laboratory Results - last 24 hr 11/20/17 11/20/17 11/20/17 06:21 07:21 10:30 POC Glucose (mg/dL) 283 H 165 H Hemoglobin A1c 5.9 11/20/17 11/20/17 11/20/17 16:55 21:03 22:35 POC Glucose (mg/dL) 127 H 268 H 300 H Hemoglobin A1c Assessment & Plan - Date & Time Date: 11/21/17 (I have seen and examined the patient. I agree with the findings and plan of care as documented by Dr. Dominguez. Patient with hypoglycemia. May be due to accidental overuse of diabetic medication. Hold meds for now and monitor with accuchecks and low sliding scale. Consult nephro for history of ESRD on dialysis. Monitor for acute changes.) Time: 05:50 Attending/Attestation - Attestation I have personally seen and examined this patient.: Yes I have fully participated in the care of the patient.: Yes I have reviewed all pertinent clinical information: Yes
[2017-11-20] MEDS ORDERED: Dextrose 50% SYRINGE Inj (50 ml) IV PRN (06:24)
[2017-11-20] MEDS ORDERED: Glucagon Recombinant 1 mg Inj IM PRN (06:24)
--- NOTE | 2017-11-20 07:19 | CP.PCM.PN ---
Subjective - Date & Time of Evaluation Date of Evaluation: 11/20/17 Time of Evaluation: 10:05 - Subjective Subjective: 42 yo F w/ PMHx HTN, DM1, ESRD(dialysis MWF), anxiety, depression, anemia, CVA( 2008), seizure. s/p syncopal event last night 2/2 uncontrolled hypoglycemia. Reported blood glucose at time of event was 24. Patient seen and examined at bedside, complains of fatigue and weakness. Pt denies fever, chills, chest pain, SOB, abd pain, nausea, vomiting, diarrhea. Objective - Vital Signs/Intake and Output Vital Signs (last 24 hours): Temp Pulse Resp BP Pulse Ox 98 F 78 14 181/72 H 97 11/20/17 05:06 11/20/17 05:40 11/20/17 05:40 11/20/17 05:40 11/20/17 05:40 - Medications Medications: Current Medications Cinacalcet (Sensipar) 90 mg PO DAILY CORINA Clonidine HCl (Catapres) 0.2 mg PO BID CORINA Dextrose (Dextrose 50% Inj) 0 ml IV STAT PRN; Protocol PRN Reason: Hypoglycemia Protocol Dextrose (Glutose 15) 0 gm PO ONCE PRN; Protocol PRN Reason: Hypoglycemia Protocol Glucagon (Glucagen Diagnostic Kit) 0 mg IM STAT PRN; Protocol PRN Reason: Hypoglycemia Protocol Dextrose (Dextrose 5% In Water 1000 Ml) 1,000 mls @ 0 mls/hr IV .Q0M PRN; Protocol; Per Protocol PRN Reason: Hypoglycemia Protocol Insulin Aspart (Novolog) 0 unit SC ACHS CORINA PRN Reason: Protocol Labetalol HCl (Normodyne) 300 mg PO BID CORINA Minoxidil (Loniten) 10 mg PO BID CORINA Pregabalin (Lyrica) 75 mg PO BID CORINA Sevelamer Carbonate (Renvela) 1,600 mg PO TIDCC CORINA - Labs Labs: 11/20/17 04:18 11/20/17 04:18 - Constitutional Appears: Well, Non-toxic - Head Exam Head Exam: ATRAUMATIC, NORMAL INSPECTION - Eye Exam Eye Exam: EOMI Pupil Exam: PERRL - ENT Exam ENT Exam: Mucous Membranes Moist - Respiratory Exam Respiratory Exam: Clear to Ausculation Bilateral, NORMAL BREATHING PATTERN - Cardiovascular Exam Cardiovascular Exam: REGULAR RHYTHM - GI/Abdominal Exam GI & Abdominal Exam: Soft, Normal Bowel Sounds - Extremities Exam Extremities Exam: Normal Capillary Refill, Normal Inspection. absent: Calf Tenderness, Pedal Edema - Neurological Exam Neurological Exam: Alert, Oriented x3 - Skin Skin Exam: Normal Color - Additional Findings Additional findings: Pt has right arm AV fistula, palpable thrill Assessment and Plan - Assessment and Plan (Free Text) Assessment: 42 yo F s/p syncopal event 2/2 uncontrolled hypoglycemia 1. Hypoglycemia-subjective BG 24 -hold pt home meds, novolog 3U before meals and lantus 10U at bedtime -D5W 1L bolus given -Accuchecks ACHS -diabetic renal diet 2. s/p syncope -Head CT negative 3. DM1 -diabetic renal diet -ISS low dose -accuchecks ACHS -hold pt home meds 3. ESRD -dialysis MWF -nephro consult Dr. Velazquez 4. HTN -continue to monitor as pt hypertensive pre-dialysis -clonidine .2 PO BID -labetolol 300mg PO BID Dispo: continue to monitor BG levels for another 24 hrs before dischrge Jaz Roberts PGY1
--- NOTE | 2017-11-20 07:55 | RAD ---
Date of service: 11/20/2017 HISTORY: r/o pul. pathology COMPARISON: Comparison is made with 10/21/2017 FINDINGS: LUNGS: Interval worsening of patchy opacities in the mid and lower portion of the lungs since the previous exam. The possibility of pulmonary vascular congestion or less likely multifocal pneumonia should be considered. PLEURA: No significant pleural effusion identified, no pneumothorax apparent. CARDIOVASCULAR: Normal. OSSEOUS STRUCTURES: No significant abnormalities. VISUALIZED UPPER ABDOMEN: Normal. OTHER FINDINGS: Right subclavian vascular stent is noted in place. IMPRESSION: Suspicious for interval worsening of pulmonary vascular congestion since the previous exam. A possibility of infectious or inflammatory process is not totally excluded.
[2017-11-20] MEDS: (Novolog) Insulin Aspart, Recombinant 100 u/ml 10 ml vial SC SCH ×4 (08:45→21:15)
--- NOTE | 2017-11-20 08:48 | CT ---
Date of service: 11/20/2017 PROCEDURE: CT HEAD WITHOUT CONTRAST. HISTORY: S/p fall COMPARISON: Noncontrast head CT 08/27/2016. TECHNIQUE: Axial computed tomography images were obtained through the head/brain without intravenous contrast. Radiation dose: Total exam DLP = 771.56 mGy-cm. This CT exam was performed using one or more of the following dose reduction techniques: Automated exposure control, adjustment of the mA and/or kV according to patient size, and/or use of iterative reconstruction technique. FINDINGS: HEMORRHAGE: No intracranial hemorrhage. BRAIN: No suspicious intracranial findings are identified at this time. Corticomedullary differentiation remains good throughout. Limited diffuse cerebral atrophy is stable. Posterior fossa contents remain unremarkable including the brainstem. A punctate calcification is again seen laterally at the right side of the tentorium. VENTRICLES: Unremarkable. No hydrocephalus. CALVARIUM: No destructive bony lesion or displaced fracture identified including through the skullbase. PARANASAL SINUSES: Unremarkable as visualized. No significant inflammatory changes. MASTOID AIR CELLS: Unremarkable as visualized. No inflammatory changes. OTHER FINDINGS: None. IMPRESSION: No acute intracranial findings identified including displaced fracture. Stable limited diffuse cerebral atrophy reiterated.
[2017-11-20] MEDS: Labetalol Hydrochloride 300 mg Tab PO SCH ×3 (10:07→22:31)
--- NOTE | 2017-11-20 13:03 | CP.PCM.CON ---
History of Present Illness - History of Present Illness History of Present Illness: HPI: Patient is a 42 year old female with past medical history HTN, Type 1 DM, ESRD on HD (MWF), anxiety, depression, anemia, and CVA with right hand weakness( 2008); 1 episode of seizures in 2008 ("due to htn", does not take medication), who presents to the ED via ambulance for hypoglycemic episode. As per patient, she took 3 units of Novolog in the evening time and did not take her scheduled lantus dose at bedtime. Around midnight, she noted mild hypoglycemic symptoms, therefore, she had some food. Subsequently, she went to bed and was woken up with increased symptoms of hypoglycemia; diaphoretic, weakness, chills, tongue numbness. Patient got out of bed and went to the kitchen to grab a sugary drink , however she syncopized before she could grab her drink. Upon waking up, patient remembered being on the floor and not being oriented to place and she was quite confused. During the encounter, patient was AAOX3, but does not recall what happened after she syncopized. Patient admits to chills, weakness, tongue numbness, dizziness, but denies chest pain, palpitations, SOB, N/V, abdominal pain, injury from fall, headache and fecal/urinary incontinence. Last dialysis 11/18 Code Status: Full Code. Proxy: Father, Saleme, PMD: [facility] Recovery Room Nurse: Dr. Velazquez Assembling Inspector: Dr. Stacy PMHx: HTN, Type 1 DM, ESRD on HD (MWF), anxiety, depression, anemia, and CVA with right hand weakness(2008); 1 episode of seizures in 2008 ("due to htn", does not take medication) SurgHx: Right AVF ~2 years ago; AV fistula left UE became infected in 2006; B/l cataracts, R. retina surgery, Embolectomy from [place] [facility], FamHx: Father- DM, prostate cancer, Heart disease; Motther- DM/ESRD ( ) Medications: Humalog 4 units before meals, Lantus 6 units HS, Labetolol 300 mg PO BID, Minoxidil 10 mg PO BID, Clonidine 0.2 mg PO BID, Lyrica 50 mg PO HS, Sensipar 90 mg daily, Renvela 3 tabs TID Allergies: NKDA SocHx: denies tobacco, alcohol, and drug use; lives with family- parents and siblings in ; unemployed. Review of Systems - Constitutional Constitutional: Lethargy, Weakness - EENT Eyes: absent: As Per HPI, Blind Spots, Blurred Vision, Change in Vision, Decreased Night Vision, Diplopia, Discharge, Dry Eye, Exophthalmos, Floaters, Irritation, Itchy Eyes, Loss of Peripheral Vision, Pain, Photophobia, Requires Corrective Lenses, Sees Flashes, Spots in Vision, Tunnel Vision, Other Visual Disturbances, Loss of Vision, Other Ears: absent: As Per HPI, Decreased Hearing, Ear Discharge, Ear Pain, Tinnitus, Abnormal Hearing, Disequilibrium, Dizziness, Other Nose/Mouth/Throat: absent: As Per HPI, Epistaxis, Nasal Congestion, Nasal Discharge, Nasal Obstruction, Nasal Trauma, Nose Pain, Post Nasal Drip, Sinus Pain, Sinus Pressure, Bleeding Gums, Change in Voice, Dental Pain, Dry Mouth, Dysphagia, Halitosis, Hoarsness, Lip Swelling, Mouth Lesions, Mouth Pain, Odynophagia, Sore Throat, Throat Swelling, Tongue Swelling, Facial Pain, Neck Pain, Neck Mass, Other - Cardiovascular Cardiovascular: Dyspnea on Exertion - Respiratory Respiratory: Dyspnea on Exertion - Gastrointestinal Gastrointestinal: absent: As Per HPI, Abdominal Pain, Belching, Bloating, Change in Bowel Habits, Change in Stool Character, Coffee Ground Emesis, Constipation, Cramping, Diarrhea, Dyspepsia, Dysphagia, Early Satiety, Excessive Flatus, Fecal Incontinence, Heartburn, Hematemesis, Hematochezia, Loose Stools, Melena, Nausea, Odynophagia, Temesmus, Vomiting, Other - Genitourinary Genitourinary: As Per HPI - Musculoskeletal Musculoskeletal: Muscle Cramps, Muscle Weakness, Myalgias Past Patient History - Infectious Disease Hx of Infectious Diseases: None - Past Medical History & Family History Past Medical History?: Yes - Past Social History Smoking Status: Never Smoked Chewing Tobacco Use: No Cigar Use: No Alcohol: None Drugs: Denies Home Situation {Lives}: With Family - CARDIAC Hx Hypertension: Yes - PULMONARY Hx Pneumonia: Yes - NEUROLOGICAL Hx Seizures: Yes (2008) - HEENT Hx HEENT Problems: Yes Hx Cataracts: Yes (HAD CUATE CATARACT SURGERY) - RENAL Hx Chronic Kidney Disease: Yes Hx Kidney Stones: No - ENDOCRINE/METABOLIC Hx Endocrine Disorders: Yes Hx Diabetes Mellitus Type 1: Yes - HEMATOLOGICAL/ONCOLOGICAL Hx Anemia: Yes - INTEGUMENTARY Hx Dermatological Problems: No - MUSCULOSKELETAL/RHEUMATOLOGICAL Hx Fractures: Yes (RT ANKLE) - GASTROINTESTINAL Hx Gastrointestinal Disorders: Yes Hx Ulcer: Yes - PSYCHIATRIC Hx Anxiety: Yes Hx Depression: Yes Hx Substance Use: No - SURGICAL HISTORY Hx Surgeries: Yes Hx Arteriovenous Shunt: Yes (NON FUNC MITZI, NEW SIDNEY) Hx Cataract Extraction: Yes Hx Eye Surgery: Yes (RETINA RT) Hx Vascular Access Device: Yes (LEFT AV FISTULA) - ANESTHESIA Hx Anesthesia: Yes Hx Anesthesia Reactions: No Hx Malignant Hyperthermia: No Meds Allergies/Adverse Reactions: Allergies Allergy/AdvReac Type Severity Reaction Status Date / Time No Known Allergies Allergy Verified 11/20/17 03:44 - Medications Medications: Current Medications Cinacalcet (Sensipar) 90 mg PO DAILY [facility] Last Admin: 11/20/17 10:30 Dose: 90 mg Clonidine HCl (Catapres) 0.2 mg PO BID [facility] Last Admin: 11/20/17 10:06 Dose: Not Given Dextrose (Dextrose 50% Inj) 0 ml IV STAT PRN; Protocol PRN Reason: Hypoglycemia Protocol Dextrose (Glutose 15) 0 gm PO ONCE PRN; Protocol PRN Reason: Hypoglycemia Protocol Glucagon (Glucagen Diagnostic Kit) 0 mg IM STAT PRN; Protocol PRN Reason: Hypoglycemia Protocol Heparin Sodium (Porcine) (Heparin) 5,000 units SC Q12 [facility] Last Admin: 11/20/17 10:31 Dose: 5,000 units Dextrose (Dextrose 5% In Water 1000 Ml) 1,000 mls @ 0 mls/hr IV .Q0M PRN; Protocol; Per Protocol PRN Reason: Hypoglycemia Protocol Insulin Aspart (Novolog) 0 unit SC ACHS [facility] PRN Reason: Protocol Last Admin: 11/20/17 12:03 Dose: 1 units Labetalol HCl (Normodyne) 300 mg PO BID [facility] Last Admin: 11/20/17 10:07 Dose: Not Given Minoxidil (Loniten) 10 mg PO BID [facility] Last Admin: 11/20/17 10:07 Dose: Not Given Pneumococcal Polyvalent Vaccine (Pneumovax 23 Vaccine) 0.5 ml IM .ONCE ONE Stop: 11/22/17 14:01 Pregabalin (Lyrica) 75 mg PO DAILY [facility] Last Admin: 11/20/17 10:30 Dose: 75 mg Sevelamer Carbonate (Renvela) 1,600 mg PO TIDCC [facility] Last Admin: 11/20/17 12:03 Dose: 1,600 mg Physical Exam - Eye Exam Eye Exam: EOMI, Normal appearance - Neck Exam Neck exam: Positive for: Normal Inspection. Negative for: Tenderness - Respiratory Exam Respiratory Exam: Clear to Auscultation Bilateral, NORMAL BREATHING PATTERN - Cardiovascular Exam Cardiovascular Exam: REGULAR RHYTHM, +S1 - GI/Abdominal Exam GI & Abdominal Exam: Soft. absent: Tenderness - Extremities Exam Extremities exam: Positive for: normal inspection. Negative for: tenderness - Neurological Exam Neurological exam: CN II-XII Intact, Oriented x3 - Skin Skin Exam: Dry, Warm Results - Vital Signs Recent Vital Signs: Last Vital Signs Temp 97.7 F 11/20/17 07:01 Pulse 78 11/20/17 08:53 Resp 18 11/20/17 07:01 BP 171/72 H 11/20/17 07:01 Pulse Ox 100 11/20/17 07:01 - Labs Result Diagrams: 11/20/17 04:18 11/20/17 04:18 Labs: Laboratory Results - last 24 hr 11/20/17 11/20/17 11/20/17 03:50 03:50 04:18 WBC 5.2 RBC 4.41 Hgb 13.7 D Hct 41.2 MCV 93.4 MCH 31.1 H MCHC 33.3 RDW 14.5 Plt Count 114 L MPV 11.1 Neut % (Auto) 47.3 L Lymph % (Auto) 36.8 [place] % (Auto) 10.7 H Eos % (Auto) 3.9 Baso % (Auto) 1.3 Neut # (Auto) 2.5 Lymph # (Auto) 1.9 [place] # (Auto) 0.6 Eos # (Auto) 0.2 Baso # (Auto) 0.1 pO2 35 VBG pH 7.31 L VBG pCO2 56 VBG HCO3 24.6 VBG Total CO2 29.9 H VBG O2 Sat (Calc) 70.8 H VBG Base Excess 0.8 VBG Potassium 4.3 Sodium 136.0 Chloride 99.0 Glucose 135 H Lactate 1.3 Potassium Carbon Dioxide Anion Gap BUN Creatinine Est GFR ( Amer) Est GFR (Non-Af Amer) POC Glucose (mg/dL) 118 H Random Glucose Hemoglobin A1c Calcium Total Bilirubin AST ALT Alkaline Phosphatase Total Protein Albumin Globulin Albumin/Globulin Ratio Venous Blood Potassium 4.3 11/20/17 11/20/17 11/20/17 04:18 04:49 05:47 WBC RBC Hgb Hct MCV MCH MCHC RDW Plt Count MPV Neut % (Auto) Lymph % (Auto) [place] % (Auto) Eos % (Auto) Baso % (Auto) Neut # (Auto) Lymph # (Auto) [place] # (Auto) Eos # (Auto) Baso # (Auto) pO2 VBG pH VBG pCO2 VBG HCO3 VBG Total CO2 VBG O2 Sat (Calc) VBG Base Excess VBG Potassium Sodium 140 Chloride 97 L Glucose Lactate Potassium 4.5 Carbon Dioxide 26 Anion Gap 22 H BUN 48 H Creatinine 7.9 H* Est GFR ( Amer) 7 Est GFR (Non-Af Amer) 6 POC Glucose (mg/dL) 67 199 H Random Glucose 133 H Hemoglobin A1c Calcium 9.6 Total Bilirubin 0.7 AST 29 ALT 15 Alkaline Phosphatase 70 Total Protein 7.8 Albumin 4.4 Globulin 3.4 Albumin/Globulin Ratio 1.3 Venous Blood Potassium 11/20/17 11/20/17 06:21 07:21 WBC RBC Hgb Hct MCV MCH MCHC RDW Plt Count MPV Neut % (Auto) Lymph % (Auto) [place] % (Auto) Eos % (Auto) Baso % (Auto) Neut # (Auto) Lymph # (Auto) [place] # (Auto) Eos # (Auto) Baso # (Auto) pO2 VBG pH VBG pCO2 VBG HCO3 VBG Total CO2 VBG O2 Sat (Calc) VBG Base Excess VBG Potassium Sodium Chloride Glucose Lactate Potassium Carbon Dioxide Anion Gap BUN Creatinine Est GFR ( Amer) Est GFR (Non-Af Amer) POC Glucose (mg/dL) 283 H Random Glucose Hemoglobin A1c 5.9 Calcium Total Bilirubin AST ALT Alkaline Phosphatase Total Protein Albumin Globulin Albumin/Globulin Ratio Venous Blood Potassium Assessment & Plan (1) Hypoglycemia Status: Acute (2) Type 1 diabetes mellitus with diabetic nephropathy Status: Acute (3) ESRD on hemodialysis Status: Chronic (4) HTN (hypertension) Status: Chronic Priority: Medium - Assessment and Plan (Free Text) Plan: treat hypoglycemia as per medicine monitor BP dialysis now and MWF
--- NOTE | 2017-11-21 06:19 | CP.PCM.PN ---
Subjective - Date & Time of Evaluation Date of Evaluation: 11/21/17 Time of Evaluation: 11:15 - Subjective Subjective: Pt seen and examined at bedside. Pt continues to complain about suprapubic pain , dysuria and increased urgency. Pt also complains of 3 BMs this morning, progressively looser. Pt also complains of nausea. Pt denies dizziness, chest pain, SOB, vomiting, hematochezia. Objective - Vital Signs/Intake and Output Vital Signs (last 24 hours): Temp Pulse Resp BP Pulse Ox 98.5 F 85 20 115/58 L 99 11/21/17 04:10 11/21/17 04:10 11/21/17 04:10 11/21/17 04:10 11/21/17 04:10 Intake and Output: 11/20/17 11/21/17 18:59 06:59 Intake Total 400 Balance 400 - Medications Medications: Current Medications Cinacalcet (Sensipar) 90 mg PO DAILY [facility] Last Admin: 11/20/17 10:30 Dose: 90 mg Clonidine HCl (Catapres) 0.2 mg PO BID [facility] Last Admin: 11/20/17 17:44 Dose: Not Given Dextrose (Dextrose 50% Inj) 0 ml IV STAT PRN; Protocol PRN Reason: Hypoglycemia Protocol Dextrose (Glutose 15) 0 gm PO ONCE PRN; Protocol PRN Reason: Hypoglycemia Protocol Glucagon (Glucagen Diagnostic Kit) 0 mg IM STAT PRN; Protocol PRN Reason: Hypoglycemia Protocol Heparin Sodium (Porcine) (Heparin) 5,000 units SC Q12 [facility] Last Admin: 11/20/17 21:10 Dose: 5,000 units Dextrose (Dextrose 5% In Water 1000 Ml) 1,000 mls @ 0 mls/hr IV .Q0M PRN; Protocol; Per Protocol PRN Reason: Hypoglycemia Protocol Insulin Aspart (Novolog) 0 unit SC ACHS [facility] PRN Reason: Protocol Last Admin: 11/20/17 21:15 Dose: Not Given Labetalol HCl (Normodyne) 300 mg PO BID [facility] Last Admin: 11/20/17 22:31 Dose: 300 mg Minoxidil (Loniten) 10 mg PO BID [facility] Last Admin: 11/20/17 17:44 Dose: Not Given Pneumococcal Polyvalent Vaccine (Pneumovax 23 Vaccine) 0.5 ml IM .ONCE ONE Stop: 11/22/17 14:01 Pregabalin (Lyrica) 75 mg PO DAILY [facility] Last Admin: 11/20/17 10:30 Dose: 75 mg Sevelamer Carbonate (Renvela) 1,600 mg PO TIDCC [facility] Last Admin: 11/20/17 17:39 Dose: 1,600 mg - Labs Labs: 11/20/17 04:18 11/20/17 04:18 - Constitutional Appears: Well, Non-toxic, No Acute Distress - Head Exam Head Exam: ATRAUMATIC, NORMAL INSPECTION, NORMOCEPHALIC - Eye Exam Eye Exam: EOMI Pupil Exam: PERRL - ENT Exam ENT Exam: Mucous Membranes Moist - Respiratory Exam Respiratory Exam: Clear to Ausculation Bilateral, NORMAL BREATHING PATTERN. absent: Rales, Rhonchi, Wheezes - Cardiovascular Exam Cardiovascular Exam: REGULAR RHYTHM - GI/Abdominal Exam GI & Abdominal Exam: Distended, Soft, Normal Bowel Sounds - Extremities Exam Extremities Exam: Normal Capillary Refill, Normal Inspection. absent: Calf Tenderness, Pedal Edema - Skin Skin Exam: Normal Color Assessment and Plan - Assessment and Plan (Free Text) Assessment: 42 yo F w/ PMHx HTN, DM1, ESRD(dialysis MWF), anxiety, depression, anemia, CVA( 2008), seizure. s/p syncopal event last night 2/2 uncontrolled hypoglycemia. Reported blood glucose at time of event was 24. 1. Hypoglycemia-subjective BG 24 -resume Novolog 3U post prandial lunch/dinner, no breakfast dose. -resume 6U Lantus HS -Accuchecks ACHS -diabetic renal diet 2. s/p syncope -Head CT negative 3. DM1 -hgb a1c 5.9 -diabetic renal diet -ISS low dose -accuchecks ACHS 3. ESRD -dialysis MWF -nephro consult Dr. Velazquez 4. HTN -continue to monitor as pt hypertensive pre-dialysis -clonidine .2 PO BID -labetolol 300mg PO BID 5. Nausea -zofran q6 PRN Dispo: continue to monitor BG levels for another 24 hrs before discharge home Jaz Roberts PGY1
[2017-11-21 07:21] LABS: BASO # 0.1 K/uL (0.0-0.2); BASO % 1.2 % (0.0-2.0); EOS # 0.2 K/uL (0.0-0.7); EOS % 3.5 % (0.0-4.0); HEMOGLOBIN 14.2 g/dL (11.0-16.0); LYMPH # 2.3 K/uL (1.0-4.3); LYMPH % 42.9 % (20.0-40.0); MEAN CELL VOLUME 92.7 fL (81.0-99.0); MEAN CORPUSCULAR HEMOGLOBIN 31.4 pg (27.0-31.0); MEAN CORPUSCULAR HGB CONC 33.9 g/dL (33.0-37.0); MEAN PLATELET VOLUME 11.2 fL (7.2-11.7); MONO # 0.6 K/uL (0.0-0.8); MONO % 11.3 % (0.0-10.0); NEUT # 2.2 K/uL (1.8-7.0); NEUT % 41.1 % (50.0-75.0); NRBC % 0.1 % (0.0-2.0); RBC 4.52 Mil/uL (3.80-5.20); RED CELL DISTRIBUTION WIDTH 14.4 % (11.5-14.5); WHITE BLOOD COUNT 5.3 K/uL (4.8-10.8)
[2017-11-21 07:43] LABS: ALB/GLOB RATIO 1.4 (1.0-2.1); ALBUMIN 4.6 g/dL (3.5-5.0); CALCIUM 9.4 mg/dl (8.6-10.4)
[2017-11-21] MEDS: (Novolog) Insulin Aspart, Recombinant 100 u/ml 10 ml vial SC SCH ×6 (08:18→21:56)
[2017-11-21] MEDS: Labetalol Hydrochloride 300 mg Tab PO SCH ×2 (09:07→17:27)
--- NOTE | 2017-11-21 09:53 | CP.PCM.PN ---
Subjective - Date & Time of Evaluation Date of Evaluation: 11/21/17 Time of Evaluation: 09:51 - Subjective Subjective: alert, c/o loose BMs hypoglycemia resolved HTN sl elevated not dyspneic, no CPs s/p dialysis 11/20- UF 3300ml Objective - Vital Signs/Intake and Output Vital Signs (last 24 hours): Temp Pulse Resp BP Pulse Ox 98.9 F 76 20 160/73 H 100 11/21/17 07:15 11/21/17 07:15 11/21/17 07:15 11/21/17 07:15 11/21/17 07:15 - Medications Medications: Current Medications Cinacalcet (Sensipar) 90 mg PO DAILY [facility] Last Admin: 11/21/17 09:05 Dose: 90 mg Clonidine HCl (Catapres) 0.2 mg PO BID [facility] Last Admin: 11/21/17 09:07 Dose: 0.2 mg Dextrose (Dextrose 50% Inj) 0 ml IV STAT PRN; Protocol PRN Reason: Hypoglycemia Protocol Dextrose (Glutose 15) 0 gm PO ONCE PRN; Protocol PRN Reason: Hypoglycemia Protocol Glucagon (Glucagen Diagnostic Kit) 0 mg IM STAT PRN; Protocol PRN Reason: Hypoglycemia Protocol Heparin Sodium (Porcine) (Heparin) 5,000 units SC Q12 [facility] Last Admin: 11/21/17 09:08 Dose: 5,000 units Dextrose (Dextrose 5% In Water 1000 Ml) 1,000 mls @ 0 mls/hr IV .Q0M PRN; Protocol; Per Protocol PRN Reason: Hypoglycemia Protocol Insulin Aspart (Novolog) 0 unit SC ACHS [facility] PRN Reason: Protocol Last Admin: 11/21/17 08:18 Dose: 2 units Labetalol HCl (Normodyne) 300 mg PO BID [facility] Last Admin: 11/21/17 09:07 Dose: 300 mg Minoxidil (Loniten) 10 mg PO BID [facility] Last Admin: 11/21/17 09:07 Dose: 10 mg Pneumococcal Polyvalent Vaccine (Pneumovax 23 Vaccine) 0.5 ml IM .ONCE ONE Stop: 11/22/17 14:01 Pregabalin (Lyrica) 75 mg PO DAILY [facility] Last Admin: 11/21/17 09:06 Dose: 75 mg Sevelamer Carbonate (Renvela) 1,600 mg PO TIDCC [facility] Last Admin: 11/21/17 08:20 Dose: 1,600 mg - Labs Labs: 11/21/17 06:56 11/21/17 06:56 - Constitutional Appears: No Acute Distress, Chronically Ill - Head Exam Head Exam: ATRAUMATIC, NORMAL INSPECTION - Eye Exam Eye Exam: EOMI, Normal appearance - Neck Exam Neck Exam: Normal Inspection. absent: Tenderness - Respiratory Exam Respiratory Exam: Clear to Ausculation Bilateral, NORMAL BREATHING PATTERN - Cardiovascular Exam Cardiovascular Exam: REGULAR RHYTHM, +S1 - GI/Abdominal Exam GI & Abdominal Exam: Soft. absent: Tenderness - Extremities Exam Extremities Exam: Normal Inspection. absent: Tenderness - Neurological Exam Neurological Exam: Awake, CN II-XII Intact - Skin Skin Exam: Dry, Warm Assessment and Plan (1) Hypoglycemia Status: Resolved (2) Type 1 diabetes mellitus with diabetic nephropathy Status: Acute (3) ESRD on hemodialysis Status: Chronic (4) HTN (hypertension) Status: Chronic - Assessment and Plan (Free Text) Plan: same dialysis schedule MWF Adequate UF monitor BP- on multiple meds now
[2017-11-21] MEDS: (Lantus) Insulin Glargine, Recombinant SC SCH (21:55)
[2017-11-22] MEDS: (Novolog) Insulin Aspart, Recombinant 100 u/ml 10 ml vial SC SCH ×6 (07:37→21:54)
[2017-11-22 07:44] LABS: BASO # 0.1 K/uL (0.0-0.2); EOS # 0.2 K/uL (0.0-0.7); EOS % 4.6 % (0.0-4.0); HEMOGLOBIN 12.8 g/dL (11.0-16.0); LYMPH # 2.2 K/uL (1.0-4.3); LYMPH % 43.7 % (20.0-40.0); MEAN CELL VOLUME 92.7 fL (81.0-99.0); MEAN CORPUSCULAR HGB CONC 33.5 g/dL (33.0-37.0); MEAN PLATELET VOLUME 11.6 fL (7.2-11.7); MONO # 0.6 K/uL (0.0-0.8); MONO % 10.9 % (0.0-10.0); NEUT % 39.8 % (50.0-75.0); RBC 4.13 Mil/uL (3.80-5.20); RED CELL DISTRIBUTION WIDTH 14.2 % (11.5-14.5); WHITE BLOOD COUNT 5.1 K/uL (4.8-10.8)
[2017-11-22 08:41] LABS: ALB/GLOB RATIO 1.4 (1.0-2.1); ALBUMIN 4.2 g/dL (3.5-5.0); CALCIUM 8.6 mg/dl (8.6-10.4)
[2017-11-22] MEDS: Labetalol Hydrochloride 300 mg Tab PO SCH ×2 (09:02→18:36)
--- NOTE | 2017-11-22 12:51 | CP.PCM.PN ---
Subjective - Date & Time of Evaluation Date of Evaluation: 11/22/17 Time of Evaluation: 12:49 - Subjective Subjective: vague c/o weakness K elevated- for dialysis now eating well- BS not low anymore no SOB, CPs, n, v, f, chills Objective - Vital Signs/Intake and Output Vital Signs (last 24 hours): Temp Pulse Resp BP Pulse Ox 97.8 F 79 20 148/67 96 11/22/17 07:00 11/22/17 08:00 11/22/17 07:00 11/22/17 07:00 11/22/17 07:00 Intake and Output: 11/22/17 11/22/17 06:59 18:59 Intake Total 320 Balance 320 - Medications Medications: Current Medications Cinacalcet (Sensipar) 90 mg PO DAILY [facility] Last Admin: 11/22/17 09:18 Dose: 90 mg Clonidine HCl (Catapres) 0.2 mg PO BID [facility] Last Admin: 11/22/17 09:01 Dose: Not Given Dextrose (Dextrose 50% Inj) 0 ml IV STAT PRN; Protocol PRN Reason: Hypoglycemia Protocol Dextrose (Glutose 15) 0 gm PO ONCE PRN; Protocol PRN Reason: Hypoglycemia Protocol Glucagon (Glucagen Diagnostic Kit) 0 mg IM STAT PRN; Protocol PRN Reason: Hypoglycemia Protocol Heparin Sodium (Porcine) (Heparin) 5,000 units SC Q12 [facility] Last Admin: 11/22/17 09:18 Dose: 5,000 units Dextrose (Dextrose 5% In Water 1000 Ml) 1,000 mls @ 0 mls/hr IV .Q0M PRN; Protocol; Per Protocol PRN Reason: Hypoglycemia Protocol Insulin Aspart (Novolog) 0 unit SC ACHS [facility] PRN Reason: Protocol Last Admin: 11/22/17 11:47 Dose: Not Given Insulin Aspart (Novolog) 3 unit SC PCL [facility] Last Admin: 11/22/17 12:16 Dose: Not Given Insulin Aspart (Novolog) 3 unit SC PCS [facility] Last Admin: 11/21/17 17:29 Dose: 3 units Insulin Glargine (Lantus) 6 unit SC HS [facility] Last Admin: 11/21/17 21:55 Dose: 6 units Labetalol HCl (Normodyne) 300 mg PO BID [facility] Last Admin: 11/22/17 09:02 Dose: Not Given Minoxidil (Loniten) 10 mg PO BID [facility] Last Admin: 11/22/17 09:02 Dose: Not Given Ondansetron HCl (Zofran Inj) 4 mg IVP Q6 [facility] Last Admin: 11/22/17 12:16 Dose: 4 mg Pneumococcal Polyvalent Vaccine (Pneumovax 23 Vaccine) 0.5 ml IM .ONCE ONE Stop: 11/22/17 14:01 Pregabalin (Lyrica) 75 mg PO [facility] Pregabalin (Lyrica) 25 mg PO ONCE ONE Stop: 11/22/17 18:01 Sevelamer Carbonate (Renvela) 1,600 mg PO TIDCC [facility] Last Admin: 11/22/17 12:16 Dose: 1,600 mg - Labs Labs: 11/22/17 07:35 11/22/17 07:35 - Constitutional Appears: No Acute Distress, Chronically Ill - Head Exam Head Exam: ATRAUMATIC, NORMAL INSPECTION - Eye Exam Eye Exam: EOMI, Normal appearance - Neck Exam Neck Exam: Normal Inspection. absent: Tenderness - Respiratory Exam Respiratory Exam: Clear to Ausculation Bilateral, NORMAL BREATHING PATTERN - Cardiovascular Exam Cardiovascular Exam: REGULAR RHYTHM, +S1 - GI/Abdominal Exam GI & Abdominal Exam: Soft. absent: Tenderness - Extremities Exam Extremities Exam: Normal Inspection. absent: Tenderness - Neurological Exam Neurological Exam: Alert, CN II-XII Intact - Skin Skin Exam: Dry, Warm Assessment and Plan (1) Hypoglycemia Status: Resolved (2) Type 1 diabetes mellitus with diabetic nephropathy Status: Acute (3) ESRD on hemodialysis Status: Chronic (4) HTN (hypertension) Status: Chronic - Assessment and Plan (Free Text) Plan: dialysis now and [facility] BP repeat chemistries recommend low K diet
[2017-11-22] MEDS ORDERED: Pneumococcal 23-Valent Vaccine IM ONE (14:00)
--- NOTE | 2017-11-22 17:47 | CP.PCM.DIS ---
Provider - Provider Date of Admission: 11/20/17 05:06 Attending physician: Mo Somers MD Primary care physician: Kathrine Holloway MD Consults: nephrology Time Spent in preparation of Discharge (in minutes): 45 Diagnosis - Discharge Diagnosis (1) Hypoglycemia Status: Resolved Priority: High (2) ESRD needing dialysis Status: Chronic Priority: Medium (3) Diabetes type I Status: Chronic Priority: Medium (4) Diabetic neuropathy Status: Chronic Priority: Low (5) HTN (hypertension) Status: Chronic Priority: Medium Hospital Course - Lab Results Lab Results: Most Recent Lab Values WBC 5.1 K/uL (4.8-10.8) 11/22/17 07:35 RBC 4.13 Mil/uL (3.80-5.20) 11/22/17 07:35 Hgb 12.8 g/dL (11.0-16.0) 11/22/17 07:35 Hct 38.3 % (34.0-47.0) 11/22/17 07:35 MCV 92.7 fL (81.0-99.0) 11/22/17 07:35 MCH 31.0 pg (27.0-31.0) 11/22/17 07:35 MCHC 33.5 g/dL (33.0-37.0) 11/22/17 07:35 RDW 14.2 % (11.5-14.5) 11/22/17 07:35 Plt Count 107 K/uL (130-400) L 11/22/17 07:35 MPV 11.6 fL (7.2-11.7) 11/22/17 07:35 Neut % (Auto) 39.8 % (50.0-75.0) L 11/22/17 07:35 Lymph % (Auto) 43.7 % (20.0-40.0) H 11/22/17 07:35 Hardy % (Auto) 10.9 % (0.0-10.0) H 11/22/17 07:35 Eos % (Auto) 4.6 % (0.0-4.0) H 11/22/17 07:35 Baso % (Auto) 1.0 % (0.0-2.0) 11/22/17 07:35 Neut # (Auto) 2.0 K/uL (1.8-7.0) 11/22/17 07:35 Lymph # (Auto) 2.2 K/uL (1.0-4.3) 11/22/17 07:35 Hardy # (Auto) 0.6 K/uL (0.0-0.8) 11/22/17 07:35 Eos # (Auto) 0.2 K/uL (0.0-0.7) 11/22/17 07:35 Baso # (Auto) 0.1 K/uL (0.0-0.2) 11/22/17 07:35 Differential Comment 11/21/17 06:56 pO2 35 mm/Hg (30-55) 11/20/17 03:50 VBG pH 7.31 (7.32-7.43) L 11/20/17 03:50 VBG pCO2 56 mmHg (40-60) 11/20/17 03:50 VBG HCO3 24.6 mmol/L 11/20/17 03:50 VBG Total CO2 29.9 mmol/L (22-28) H 11/20/17 03:50 VBG O2 Sat (Calc) 70.8 % (40-65) H 11/20/17 03:50 VBG Base Excess 0.8 mmol/L (0.0-2.0) 11/20/17 03:50 VBG Potassium 4.3 mmol/L (3.6-5.2) 11/20/17 03:50 Sodium 136.0 mmol/l (132-148) 11/20/17 03:50 Chloride 99.0 mmol/L (98-107) 11/20/17 03:50 Glucose 135 mg/dl (65-105) H 11/20/17 03:50 Lactate 1.3 mmol/L (0.7-2.1) 11/20/17 03:50 Sodium 136 mmol/L (132-148) 11/22/17 07:35 Potassium 6.9 mmol/L (3.6-5.2) H* D 11/22/17 07:35 Chloride 96 mmol/L (98-107) L 11/22/17 07:35 Carbon Dioxide 26 mmol/L (22-30) 11/22/17 07:35 Anion Gap 22 (10-20) H 11/22/17 07:35 BUN 66 mg/dL (7-17) H 11/22/17 07:35 Creatinine 8.2 mg/dL (0.7-1.2) H* D 11/22/17 07:35 Est GFR ( Amer) 7 11/22/17 07:35 Est GFR (Non-Af Amer) 5 11/22/17 07:35 POC Glucose (mg/dL) 107 mg/dL (65-110) 11/22/17 15:57 Random Glucose 87 mg/dL (65-105) 11/22/17 07:35 Hemoglobin A1c 5.9 % (4.2-6.5) 11/20/17 07:21 Calcium 8.6 mg/dl (8.6-10.4) 11/22/17 07:35 Phosphorus 3.7 mg/dL (2.5-4.5) 11/22/17 07:35 Magnesium 2.4 mg/dL (1.6-2.3) H 11/22/17 07:35 Total Bilirubin 0.5 mg/dL (0.2-1.3) 11/22/17 07:35 AST 21 U/L (14-36) 11/22/17 07:35 ALT 8 U/L (9-52) L 11/22/17 07:35 Alkaline Phosphatase 70 U/L (38-126) 11/22/17 07:35 Total Protein 7.1 g/dL (6.3-8.3) 11/22/17 07:35 Albumin 4.2 g/dL (3.5-5.0) 11/22/17 07:35 Globulin 2.9 gm/dL (2.2-3.9) 11/22/17 07:35 Albumin/Globulin Ratio 1.4 (1.0-2.1) 11/22/17 07:35 Venous Blood Potassium 4.3 mmol/L (3.6-5.2) 11/20/17 03:50 - Hospital Course Hospital Course: Patient is a 42 year old female with past medical history HTN, Type 1 DM, ESRD on HD (MWF), anxiety, depression, anemia, and CVA with right hand weakness(2008) ; 1 episode of seizures in 2008 ("due to htn", does not take medication), who presents to the ED via ambulance for hypoglycemic episode. As per patient, she took 3 units of Novolog in the evening time and did not take her scheduled lantus dose at bedtime. Around midnight, she noted mild hypoglycemic symptoms, therefore, she had some food. Subsequently, she went to bed and was woken up with increased symptoms of hypoglycemia; diaphoretic, weakness, chills, tongue numbness. Patient got out of bed and went to the kitchen to grab a sugary drink , however she syncopized before she could grab her drink. Upon waking up, patient remembered being on the floor and not being oriented to place and she was quite confused. During the encounter, patient was AAOX3, but does not recall what happened after she syncopized. Patient admits to chills, weakness, tongue numbness, dizziness, but denies chest pain, palpitations, SOB, N/V, abdominal pain, injury from fall, headache and fecal/urinary incontinence. Upon admission, patient's blood glucose was 24. She was given 1 amp D50. Patient 's A1c was 6.4. Her BG increased to 118. Changes were made to the patient's insulin to realize optimum glucose control. Ultimately, the patient's insulin regimen was changed to Lantus 6 units at night, and Novolog 3 units only following lunch and dinner. The patient received HD as scheduled. Patient was continued on home meds for HTN, and her BP was stable and well-controlled. Upon discharge, the patient's blood glucose was stable, and she was instructed on new insulin regimen. She will return home to her family and continue to received HD on [facility]. She was given a referral to receive PT services at home for her right foot drop. Discharge Exam - Head Exam Head Exam: ATRAUMATIC, NORMAL INSPECTION - Eye Exam Eye Exam: EOMI, Normal appearance - ENT Exam ENT Exam: Mucous Membranes Moist - Neck Exam Neck exam: Full Rom, Normal Inspection - Respiratory Exam Respiratory Exam: Clear to PA & Lateral, NORMAL BREATHING PATTERN - Cardiovascular Exam Cardiovascular Exam: REGULAR RHYTHM - GI/Abdominal Exam GI & Abdominal Exam: Normal Bowel Sounds, Soft - Rectal Exam Rectal Exam: Deferred - Extremities Exam Extremities exam: normal inspection - Back Exam Back exam: NORMAL INSPECTION - Neurological Exam Neurological exam: Alert, Oriented x3 - Psychiatric Exam Psychiatric exam: Normal Affect, Normal Mood - Skin Skin Exam: Dry, Intact, Normal Color, Warm Discharge Plan - Follow Up Plan Condition: STABLE Disposition: HOME/ ROUTINE Instructions: Hemodialysis (DC), Low Blood Sugar, Adult (DC), End Stage Kidney Disease (DC) Additional Instructions: Patient is stable for discharge home as per Dr. Somers. Patient is to follow- up at the [facility] ([phone]) within 1 week of discharge. She is also to continue hemodialysis every Saturday, Saturday, and Saturday. The patient is to resume her home medications with the exception of insulin. The patients new insulin regimen is: Novolog 3 units 1 hour after lunch Novolog 3 units 1 hour after dinner Lantus 6 units at bedtime Patient is to check her blood glucose level prior to lunch and dinner. Also, the patient should not inject the Novolog if she is not eating a meal. Patient is to return to the ED if symptoms recur or are worsening. This was explained to the patient who understands and agrees. Referrals: Kathrine Holloway MD [Primary Care Provider] -
[2017-11-22] MEDS: (Lantus) Insulin Glargine, Recombinant SC SCH (21:57)
[2017-11-23] MEDS: (Novolog) Insulin Aspart, Recombinant 100 u/ml 10 ml vial SC SCH ×6 (07:30→22:41)
[2017-11-23 08:01] LABS: CALCIUM 8.9 mg/dl (8.6-10.4)
[2017-11-23] MEDS ORDERED: Sod Polystyrene Sulf 15 gm/60 ml Susp PO ONE (09:15)
[2017-11-23] MEDS ORDERED: Albuterol-Ipratrop 3 mg / 0.5 (3 ml) UD INH STA (09:16)
[2017-11-23] MEDS ORDERED: Dextrose 50% SYRINGE Inj (50 ml) IV STA ×2 (09:17→10:56)
[2017-11-23] MEDS ORDERED: (Novolin R) Insulin Human Regular 100 units/ml vial IV ONE (09:18)
[2017-11-23] MEDS ORDERED: Sodium Bicarbonate (8.4%) 50 Meq Syringe IVP ONE (09:20)
[2017-11-23] MEDS ORDERED: Pneumococcal 23-Valent Vaccine IM ONE (10:00)
--- NOTE | 2017-11-23 10:18 | CP.PCM.PN ---
Subjective - Date & Time of Evaluation Date of Evaluation: 11/23/17 Time of Evaluation: 10:16 - Subjective Subjective: Stable dialysis 11/22- UF 3100ml BP controlled BSs better K elevated- treated by PMD Patient advised on low K diet Objective - Vital Signs/Intake and Output Vital Signs (last 24 hours): Temp Pulse Resp BP Pulse Ox 98.2 F 76 20 152/69 H 96 11/23/17 07:20 11/23/17 07:39 11/23/17 07:20 11/23/17 07:20 11/23/17 07:20 - Medications Medications: Current Medications Cinacalcet (Sensipar) 90 mg PO DAILY [facility] Last Admin: 11/22/17 09:18 Dose: 90 mg Clonidine HCl (Catapres) 0.2 mg PO BID [facility] Last Admin: 11/22/17 18:36 Dose: 0.2 mg Dextrose (Dextrose 50% Inj) 0 ml IV STAT PRN; Protocol PRN Reason: Hypoglycemia Protocol Dextrose (Glutose 15) 0 gm PO ONCE PRN; Protocol PRN Reason: Hypoglycemia Protocol Glucagon (Glucagen Diagnostic Kit) 0 mg IM STAT PRN; Protocol PRN Reason: Hypoglycemia Protocol Calcium Gluconate 4.65 meq/ (Sodium Chloride) 110 mls @ 100 mls/hr IV ONCE ONE Stop: 11/23/17 10:24 Insulin Aspart (Novolog) 0 unit SC ACHS [facility] PRN Reason: Protocol Last Admin: 11/23/17 07:30 Dose: Not Given Insulin Aspart (Novolog) 3 unit SC PCL [facility] Last Admin: 11/22/17 12:16 Dose: Not Given Insulin Aspart (Novolog) 3 unit SC PCS [facility] Last Admin: 11/22/17 18:37 Dose: Not Given Insulin Glargine (Lantus) 6 unit SC HS [facility] Last Admin: 11/22/17 21:57 Dose: 6 units Labetalol HCl (Normodyne) 300 mg PO BID [facility] Last Admin: 11/22/17 18:36 Dose: 300 mg Minoxidil (Loniten) 10 mg PO BID [facility] Last Admin: 11/22/17 18:36 Dose: 10 mg Ondansetron HCl (Zofran Inj) 4 mg IVP Q6 [facility] Last Admin: 11/23/17 05:23 Dose: 4 mg Pregabalin (Lyrica) 75 mg PO HS [facility] Sevelamer Carbonate (Renvela) 1,600 mg PO TIDCC [facility] Last Admin: 11/22/17 18:36 Dose: 1,600 mg - Labs Labs: 11/22/17 07:35 11/23/17 08:26 - Constitutional Appears: No Acute Distress, Chronically Ill - Head Exam Head Exam: ATRAUMATIC, NORMAL INSPECTION - Eye Exam Eye Exam: EOMI, Normal appearance - Neck Exam Neck Exam: Normal Inspection. absent: Tenderness - Respiratory Exam Respiratory Exam: Clear to Ausculation Bilateral, NORMAL BREATHING PATTERN - Cardiovascular Exam Cardiovascular Exam: REGULAR RHYTHM, +S1 - GI/Abdominal Exam GI & Abdominal Exam: Soft. absent: Tenderness - Extremities Exam Extremities Exam: Normal Inspection. absent: Tenderness - Neurological Exam Neurological Exam: Awake, CN II-XII Intact - Skin Skin Exam: Dry, Warm Assessment and Plan (1) Hypoglycemia Status: Resolved (2) Type 1 diabetes mellitus with diabetic nephropathy Status: Acute (3) ESRD on hemodialysis Status: Chronic (4) HTN (hypertension) Status: Chronic - Assessment and Plan (Free Text) Plan: Rx hyperkalemia as per medicine Next scheduled dialysis 11/25- advised pt better compliance with diet and dialysis attendance
[2017-11-23] MEDS: Labetalol Hydrochloride 300 mg Tab PO SCH ×2 (10:50→18:00)
[2017-11-23] MEDS ORDERED: Dextrose 50% SYRINGE Inj (50 ml) ONE (11:02)
[2017-11-23 14:56] LABS: CALCIUM 8.8 mg/dl (8.6-10.4)
[2017-11-23 19:19] VITALS: RESP 20
--- NOTE | 2017-11-23 20:23 | CP.PCM.PCO ---
Physician Communication Note - Physician Communication Note Physician Communication Note: Please see above
[2017-11-23] MEDS: (Lantus) Insulin Glargine, Recombinant SC SCH (22:28)
[2017-11-23] MEDS ORDERED: Bisacodyl 5mg EC Tab PO ONE (22:31)
[2017-11-24] MEDS: (Novolog) Insulin Aspart, Recombinant 100 u/ml 10 ml vial SC SCH ×3 (08:12→13:18)
[2017-11-24 09:31] LABS: ALB/GLOB RATIO 1.6 (1.0-2.1); ALBUMIN 4.7 g/dL (3.5-5.0); CALCIUM 8.9 mg/dl (8.6-10.4)
[2017-11-24] MEDS: Labetalol Hydrochloride 300 mg Tab PO SCH (09:38)
[2017-11-24 16:57] VITALS: BP 154/65; PULSE 78; TEMP 98; O2SAT 98
--- NOTE | 2017-11-25 12:06 | CARD ---
APPROVED REPORT Date of service: 11/23/2017 EKG Measurement Heart [id number] TN [id number] <Conclusion> Normal sinus rhythm Low voltage QRS Borderline ECG
--- NOTE | 2017-11-25 21:25 | CARD ---
APPROVED REPORT EKG Measurement Heart [id number] <Conclusion> Normal sinus rhythm Normal ECG
== END 2017-11-24 17:43 | disposition home or self-care (01) | DRG 638 ==
LOC: C.ER 03:42 → SUPCPDRO 03:42 → C.6T 05:06
PROVIDERS: ADMIT Internal Medicine; ATTEND Internal Medicine
PROC: 5A1D70Z Performance of Urinary Filtration, Intermittent, Less than 6 Hours Per Day (ICD-10-PCS; principal; 2017-11-20)
PROC: 5A1D70Z Performance of Urinary Filtration, Intermittent, Less than 6 Hours Per Day (ICD-10-PCS; 2017-11-22)
PROC: 5A1D70Z Performance of Urinary Filtration, Intermittent, Less than 6 Hours Per Day (ICD-10-PCS; 2017-11-23)
DX: E10.649 Type 1 diabetes mellitus with hypoglycemia without coma (principal); I12.0 Hypertensive chronic kidney disease with stage 5 chronic kidney disease or end stage renal disease; I69.351 Hemiplegia and hemiparesis following cerebral infarction affecting right dominant side; N18.6 End stage renal disease; E10.22 Type 1 diabetes mellitus with diabetic chronic kidney disease; R55 Syncope and collapse; E87.5 Hyperkalemia; E10.21 Type 1 diabetes mellitus with diabetic nephropathy; E10.40 Type 1 diabetes mellitus with diabetic neuropathy, unspecified; K21.9 Gastro-esophageal reflux disease without esophagitis; F17.210 Nicotine dependence, cigarettes, uncomplicated; M21.371 Foot drop, right foot; Z99.2 Dependence on renal dialysis; Z79.4 Long term (current) use of insulin; Z87.01 Personal history of pneumonia (recurrent)

== ENCOUNTER 2018-02-28 17:47 | Observation (INO) | payer OTHER ==
[2018-02-28 17:48] VITALS: BMI 22.4
[2018-02-28] MEDS ORDERED: Iohexol 240 (50 ml) PO STA (18:38)
--- NOTE | 2018-02-28 18:38 | C.PDOC ---
History Of Present Illness 42 year old female presents to the ED complaining of new onset LLQ pain since yesterday. Reports pain is intermittent and localized. Denies improvement with bowel movement. Notes history of constipation and states "but I'm doing fine". States urgency to go "but nothing happens". Reports history of ESRD, no longer urinates. Denies surgical history. Denies fever, nausea, vomiting, GI bleed. Last HD 02/26. NEW ONSET LLQ PAIN SINCE YEST. INTERMIT LOCALIZED NO IMPROVE W BM. HO CONSTIPATION "BUT I'M GOING FINE". PS URGENCY TO GO "BUT NOTHING HAPPENS". HO ESRD, NO LONGER URINATES. PSH NEG. NO FEVER NV, GI BLEED. LAST HD 02/26 EXAM MILD DIST NONTOXIC ABD SOFT +LLQ TEND MILD NO R/G REMAINDER NEG Time Seen by Provider: 02/28/18 18:15 Chief Complaint (Nursing): Abdominal Pain History Per: Patient History/Exam Limitations: no limitations Onset/Duration Of Symptoms: Days (1), Intermittent Episodes Current Symptoms Are (Timing): Still Present Location Of Pain/Discomfort: LLQ Radiation Of Pain To:: None Associated Symptoms: Constipation. denies: Fever, Nausea, Vomiting Past Medical History Reviewed: Historical Data, Nursing Documentation, Vital Signs Vital Signs: Last Vital Signs Temp 98.6 F 02/28/18 17:58 Pulse 84 02/28/18 17:58 Resp 18 02/28/18 17:58 BP 137/61 02/28/18 17:58 Pulse Ox 99 02/28/18 17:58 - Medical History PMH: Anemia, Anxiety, COPD, Depression, Diabetes, Fractures (RT ANKLE), GERD, HTN, Pneumonia, End Stage Renal Disease, Chronic Kidney Disease, Seizures (2008), TIA Denies: Kidney Stones Other Surgeries: Hx of surgeries - [facility] Procedures (11/20/17) DILATION OF R BASILIC VEIN WITH INTRALUM DEV, PERC APPROACH (07/13/16) DILATION OF RIGHT BASILIC VEIN, PERCUTANEOUS APPROACH (05/03/17) DILATION OF UPPER ARTERY, PERCUTANEOUS APPROACH (07/24/17) EXTIRPATION OF MATTER FROM RIGHT BASILIC VEIN, PERC APPROACH (07/13/16) FLUOROSCOPY OF INF VENA CAVA USING L OSM CONTRAST, GUIDANCE (05/29/16) INDIVIDUAL PSYCHOTHERAPY, COGNITIVE-BEHAVIORAL (10/23/16) INDIVIDUAL PSYCHOTHERAPY, SUPPORTIVE (10/23/16) INSERTION OF INFUSION DEV INTO INF VENA CAVA, PERC APPROACH (05/29/16) INSERTION OF INFUSION DEV INTO SUP VENA CAVA, PERC APPROACH (07/13/16) INSERTION OF INFUSION DEVICE INTO LOWER VEIN, PERC APPROACH (07/24/17) INTRODUCE OTH THROMBOLYTIC IN PERIPH VEIN, PERC (07/13/16) PERFORMANCE OF URINARY FILTRATION, MULTIPLE (01/03/17) REMOVAL OF OTHER DEVICE ON RIGHT INGUINAL REGION (05/29/16) ULTRASONOGRAPHY OF INFERIOR VENA CAVA, GUIDANCE (07/13/16) Family History: States: No Known Family Hx - Social History Hx Tobacco Use: Yes Hx Alcohol Use: No Hx Substance Use: No - Immunization History Hx Tetanus Toxoid Vaccination: No Hx Influenza Vaccination: Yes Hx Pneumococcal Vaccination: Yes Review Of Systems Except As Marked, All Systems Reviewed And Found Negative. Constitutional: Negative for: Fever Gastrointestinal: Positive for: Abdominal Pain (LLQ), Constipation. Negative for: Nausea, Vomiting Physical Exam - Physical Exam Appears: Non-toxic, Other (mild distress) Skin: Warm, Dry, No Rash Head: Normacephalic Eye(s): bilateral: Normal Inspection Neck: Normal ROM, Supple Chest: Symmetrical Cardiovascular: Rhythm Regular Respiratory: Normal Breath Sounds, No Rales, No Rhonchi, No Wheezing Gastrointestinal/Abdominal: Soft, Tenderness (LLQ ), No Distention (mild tenderness to LLQ), No Guarding, No Rebound Neurological/Psych: Oriented x3, Normal Speech Gait: Steady ED Course And Treatment - Laboratory Results Result Diagrams: 02/28/18 19:06 02/28/18 19:06 O2 Sat by Pulse Oximetry: 99 (RA) Pulse Ox Interpretation: Normal - CT Scan/US CT abd/pel Other Rad Studies (CT/US): Read By Radiologist, Radiology Report Reviewed CT/US Interpretation: CLINICAL HISTORY: LLQ pain. TECHNIQUE: Multiple axial, coronal, sagittal CT images were obtained through the abdomen and pelvis without administration of IV contrast material. Oral contrast material was administered. DLP [id number]. COMMENTS: The liver is of uniform attenuation without mass or defect. There is no intra or extrahepatic biliary ductal dilatation. Several calcified splenic granulomas are present. Small calcified gallstones are present in the dependent portion of the gallbladder. The pancreas is of normal contour and attenuation characteristics. There is no evidence of adrenal mass. Both kidneys are moderately atrophic and contain multiple bilateral cysts and diffuse calcifications. This is consistent with medicorenal disease. There is no evidence for appendicitis. There is severe circumferential thickening involving jejunum consistent with severe jejunitis. Infectious and inflammatory etiologies are considered. There is diffuse severe gastric wall thickening consistent with gastritis. Consultation with GI service is recommended. Consider follow-up with upper endoscopy. No evidence for small or large bowel obstruction. There is no evidence of abdominal ascites or lymphadenopathy. There is no evidence of intrinsic or extrinsic bladder mass. There is no pelvic ascites or lymphadenopathy. The uterus is bulky and enlarged. Images of the lung bases show no evidence of pleural or parenchymal mass. There are no pleural effusions. There is a cavitary appearing lesion noted at the left lung base which measures approximately 2.5 x 1 cm. This may be related to atypical infection such as fungal or unusual scarring. There is scarring noted in the superior segment of the left lower lobe subpleural in location. There are patchy ground gland opacities scattered in the visualized lung tubbs may be due to air trapping or non-specific inflammatory infectious etiology. The heart is moderately enlarged. Small hiatal hernia is present. The bony structures are free of lytic or blastic lesions. IMPRESSION: 1. Small calcified gallstones in the dependent portion of the gallbladder. 2. Both kidneys are moderately atrophic and contain multiple bilateral cysts and diffuse calcifications. This is consistent with medicorenal disease. 3. Severe jejunitis. Gastritis. Consultation with GI service is recommended. 4. Cavitary appearing lesion noted at the left lung base which measures approximately 2.5 x 1 cm. This may be related to atypical infection such as fungal or unusual scarring. Patchy ground gland opacities scattered in the visualized lung tubbs may be due to air trapping or non-specific inflammatory infectious etiology. Follow up with dedicated Chest CT is recommended. . Electronically signed on Feb 28, 2018 9:36:16 PM EST by: Leland Purcell M.D., ADRY Certified By ABR & CBC[employer]. Fellowship Trained MRI and CT Specialist Progress Note: CT abd/pel ordered and reviewed. Patient treated with Morphine. Blood collected and sent to lab for analysis. Progress - Re-Evaluation Re-evaluation Note: 02/28/18 22:[address] REPORT, PRIOR RECS REVIEWED. Tate FELIX, STATES PT IS WELL KNOWN TO HOSP SERVICE HO CHRONIC ABD COMPLAINTS, NONTCOMPLIANCE. PT NOW REQUESTING ADMISSION FOR HD. NO INDICATION FOR EMERGENCY HD, BUN/CREAT NO SIG CHANGE PRIOR SINCE 2017, POTASSIUM WNL, NARD. ps her hd CENTER DOES NOT DO SATURDAY HD. D/W DR VALDOVINOS C/F DR CANTU AWARE OF ER FINDINGS. STATES TO ADMIT DUE TO LACK OF OUTPT SERVICE ON SATURDAY. D/W DR Griffin FELIX WILL ADMIT - Data Reviewed Data Reviewed: Lab, Diagnostic imaging, Old records Disposition Counseled Patient/Family Regarding: Studies Performed, Diagnosis, Need For Followup - Disposition Referrals: [facility] [Outside] [facility] [Outside] Disposition: HOSPITALIZED Disposition Time: 22:07 Condition: STABLE Instructions: Chronic Pain (DC), End Stage Kidney Disease (DC) Forms: [employer] (Divehi) - POA Present On Arrival: None, Poor Glycemic Control - Clinical Impression Clinical Impression: Chronic abdominal pain, ESRD (end stage renal disease), Dialysis patient, noncompliant - Scribe Statement The provider has reviewed the documentation as recorded by the Scribsiena Harman All medical record entries made by the Scribe were at my direction and personally dictated by me. I have reviewed the chart and agree that the record accurately reflects my personal performance of the history, physical exam, medical decision making, and the department course for this patient. I have also personally directed, reviewed, and agree with the discharge instructions and disposition.
[2018-02-28] MEDS ORDERED: Iohexol 240 (50 ml) ONE (19:06)
[2018-02-28 19:11] LABS: BASO # 0.1 K/uL (0.0-0.2); BASO % 1.3 % (0.0-2.0); EOS # 0.2 K/uL (0.0-0.7); EOS % 2.7 % (0.0-4.0); HEMOGLOBIN 10.9 g/dL (11.0-16.0); LYMPH # 1.6 K/uL (1.0-4.3); LYMPH % 22.1 % (20.0-40.0); MEAN CELL VOLUME 90.3 fL (81.0-99.0); MEAN CORPUSCULAR HEMOGLOBIN 30.6 pg (27.0-31.0); MEAN CORPUSCULAR HGB CONC 33.9 g/dL (33.0-37.0); MEAN PLATELET VOLUME 11.3 fL (7.2-11.7); MONO # 0.7 K/uL (0.0-0.8); MONO % 9.8 % (0.0-10.0); NEUT # 4.5 K/uL (1.8-7.0); NEUT % 64.1 % (50.0-75.0); RBC 3.57 Mil/uL (3.80-5.20); RED CELL DISTRIBUTION WIDTH 14.1 % (11.5-14.5)
[2018-02-28 19:34] LABS: ALB/GLOB RATIO 1.3 (1.0-2.1); ALBUMIN 4.5 g/dL (3.5-5.0); CALCIUM 10.1 mg/dl (8.6-10.4)
--- NOTE | 2018-03-01 01:18 | CP.PCM.HP ---
<Ignacia Woods - Last Filed: 03/01/18 03:25> History of Present Illness - History of Present Illness History of Present Illness: cc: "missed dialysis" Ms. 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 Patient missed HD appointment due to being in the ED. She has had one day of diarrhea with 10 episodes and non bloody, non melena watery diarrhea with LLQ cramping. Denies headache, nausea, vomiting, constipation, sick contacts, recent travel. On 02/19/18, she had R pterygium [place] [facility] with unknown surgeon for which she does have the contact information for. She is still using antibiotic ointment in the recovery phase. The eye remains red and bloodshot. Code Status: Full Code. Proxy: Father, Saleem, PMD: [facility] at [facility] [employer] Set Up Operator: Dr. Velazquez Ge[employer] Heat Pump Machinist: Dr. Stacy PMHx: HTN, Type 1 DM, ESRD on HD (MWF), anxiety, depression, anemia, and CVA with right hand weakness(2008); 1 episode of seizures in 2008 ("due to htn", does not take medication) SurgHx: Right AVF ~2 years ago; AV fistula left UE became infected in 2006; B/l cataracts, R. retina surgery, Embolectomy from [facility], FamHx: Father- DM, prostate cancer, Heart disease; Motther- DM/ESRD ( ) Medications: Humalog 4 units before meals, Lantus 6 units HS, Labetolol 300 mg PO BID, Minoxidil 10 mg PO BID, Clonidine 0.2 mg PO BID, Lyrica 50 mg PO HS, Sensipar 90 mg daily, Renvela 3 tabs TID Allergies: NKDA SocHx: denies tobacco, alcohol, and drug use; lives with family- parents and siblings in ; unemployed. Present on Admission - Present on Admission Any Indicators Present on Admission: No Review of Systems - Constitutional Constitutional: Excessive Sweating, Headache. absent: Anorexia, Chills, Fever, Frequent Falls, Malaise - EENT Eyes: Irritation, Itchy Eyes. absent: Blurred Vision, Diplopia, Discharge, Loss of Peripheral Vision, Pain Ears: absent: Tinnitus, Dizziness Nose/Mouth/Throat: absent: Nasal Congestion, Nasal Discharge, Dry Mouth, Dysphagia - Cardiovascular Cardiovascular: absent: Chest Pain, Chest Pain at Rest, Chest Pain with Activity, Claudication, Diaphoresis, Dyspnea on Exertion, Leg Edema, Lightheadedness, Palpitations - Respiratory Respiratory: absent: Cough, Dyspnea - Gastrointestinal Gastrointestinal: Abdominal Pain, Cramping, Diarrhea. absent: Dysphagia, Hematochezia, Odynophagia - Genitourinary Genitourinary: absent: Difficulty Urinating, Urinary Frequency - Reproductive: Female Reproductive:Female: Cycle > 4 Weeks Between, Normal Menses - Musculoskeletal Musculoskeletal: absent: Muscle Cramps, Muscle Weakness, Numbness, Tingling - Integumentary Integumentary: absent: Dry Skin, Rash, Sores, Swelling - Neurological Neurological: Headaches. absent: Dizziness, Syncope, Vertigo - Psychiatric Psychiatric: absent: Confusion, Hallucinations - Endocrine Endocrine: Fatigue. absent: Flushing, Heat Intolorance - Hematologic/Lymphatic Hematologic: absent: Easy Bleeding, Easy Bruising Past Patient History - Infectious Disease Hx of Infectious Diseases: None - Past Medical History & Family History Past Medical History?: Yes Pertinent Family History: mother: DM, ESRD on HD Father: prostate CA - Past Social History Smoking Status: Never Smoked Alcohol: None Drugs: Denies - CARDIAC Hx Hypertension: Yes - PULMONARY Hx Chronic Obstructive Pulmonary Disease (COPD): Yes Hx Pneumonia: Yes - NEUROLOGICAL Hx Seizures: Yes (2008) Hx Transient Ischemic Attacks (TIA): Yes - HEENT Hx HEENT Problems: Yes Hx Cataracts: Yes (HAD CUATE CATARACT SURGERY) - RENAL Hx Chronic Kidney Disease: Yes Hx Kidney Stones: No - ENDOCRINE/METABOLIC Hx Diabetes Mellitus Type 1: Yes - HEMATOLOGICAL/ONCOLOGICAL Hx Anemia: Yes - INTEGUMENTARY Hx Dermatological Problems: No - MUSCULOSKELETAL/RHEUMATOLOGICAL Hx Fractures: Yes (RT ANKLE) - GASTROINTESTINAL Hx Gastrointestinal Disorders: Yes Hx Gastroesophageal Reflux: Yes Hx Ulcer: Yes - PSYCHIATRIC Hx Anxiety: Yes Hx Depression: Yes Hx Substance Use: No - SURGICAL HISTORY Hx Surgeries: Yes Hx Arteriovenous Shunt: Yes (NON FUNC MITZI, NEW SIDNEY) Hx Cataract Extraction: Yes Hx Eye Surgery: Yes (RETINA RT) Hx Vascular Access Device: Yes (LEFT AV FISTULA) - ANESTHESIA Hx Anesthesia: Yes Hx Anesthesia Reactions: No Hx Malignant Hyperthermia: No Meds Allergies/Adverse Reactions: Allergies Allergy/AdvReac Type Severity Reaction Status Date / Time No Known Allergies Allergy Verified 11/20/17 03:44 Physical Exam - Constitutional Appears: Well, No Acute Distress - Head Exam Head Exam: ATRAUMATIC, NORMOCEPHALIC - Eye Exam Eye Exam: EOMI, PERRL Additional comments: R eye injected conjunctiva. Ointment sticking eyelashes together - ENT Exam ENT Exam: Mucous Membranes Moist, Normal Exam - Respiratory Exam Respiratory Exam: Clear to Auscultation Bilateral, NORMAL BREATHING PATTERN. absent: Rales, Rhonchi, Wheezes - Cardiovascular Exam Cardiovascular Exam: REGULAR RHYTHM, +S1, +S2, Systolic Murmur Additional comments: systolic murmur - GI/Abdominal Exam GI & Abdominal Exam: Normal Bowel Sounds, Soft, Tenderness. absent: Distended, Firm, Guarding Additional comments: TTP in all 4 quadrants - Extremities Exam Extremities exam: Positive for: normal capillary refill, pedal pulses present. Negative for: pedal edema Additional comments: AVF with palpable thrill and audible bruit on R arm - Back Exam Back exam: absent: CVA tenderness (L), CVA tenderness (R) - Neurological Exam Neurological exam: Alert, CN II-XII Intact, Oriented x3 - Psychiatric Exam Psychiatric exam: Anxious, Normal Affect, Normal Mood - Skin Skin Exam: Dry, Normal Color, Warm Results - Vital Signs Recent Vital Signs: Last Vital Signs Temp 97.8 F 02/28/18 22:18 Pulse 89 02/28/18 22:18 Resp 14 02/28/18 22:18 BP 166/69 H 02/28/18 22:18 Pulse Ox 99 02/28/18 22:33 - Labs Result Diagrams: 02/28/18 19:06 02/28/18 19:06 Labs: Laboratory Results - last 24 hr 02/28/18 02/28/18 02/28/18 19:06 19:06 19:06 WBC 7.0 RBC 3.57 L Hgb 10.9 L Hct 32.2 L MCV 90.3 D MCH 30.6 MCHC 33.9 RDW 14.1 Plt Count 145 MPV 11.3 Neut % (Auto) 64.1 Lymph % (Auto) 22.1 Bay % (Auto) 9.8 Eos % (Auto) 2.7 Baso % (Auto) 1.3 Neut # (Auto) 4.5 Lymph # (Auto) 1.6 Bay # (Auto) 0.7 Eos # (Auto) 0.2 Baso # (Auto) 0.1 Sodium 134 Potassium 4.6 Chloride 91 L Carbon Dioxide 25 Anion Gap 22 H BUN 38 H Creatinine 7.6 H* D Est GFR ( Amer) 7 Est GFR (Non-Af Amer) 6 Random Glucose 223 H Calcium 10.1 Total Bilirubin 0.8 AST 19 ALT 20 Alkaline Phosphatase 102 Total Protein 7.9 Albumin 4.5 Globulin 3.4 Albumin/Globulin Ratio 1.3 Lipase 133 Beta HCG, Quant < 2.39 Assessment & Plan - Assessment and Plan (Free Text) Assessment: 42yo F PMH HTN, T1DM, ESRD on HD missed her HD yesterday due to being in the ED for diarrhea, likely gastroenteritis, for HD today. Plan: Likely Gastroenteritis -CT A/P (02/28): pending read. Prelim: severe jejunitis, gastritis -WBC stable, afebrile. Denies other risk factors -> likely viral in nature -no antibiotics indicated at this time, supportive care -educated on hand washing, fluid intake, and BRAT diet multiple times -patient aware symptom complex may take about a week to entirely resolve. informed to contact PMD if symptoms persist longer. Questionable Cavitary Lesion -as noted on CT: cavitary appearing lesion noted at left lung base measuring 2 .5x1cm noted on image 19 -as compared to image 73 from 05/2016, lesion does not appear to change in size -will confirm with radiology team on 03/02 as the lesion was not noted on previous scan -questionable if true cavitary lesion ESRD -HD MWF @ [facility] in [place] via R arm AVF -missed dialysis 02/28 since in ED -Nephro consulted: Dr. Velazquez - help appreciated -home Sevelamer 1600mg po TIDCC -home Cinacalcet 90mg po daily s/p Pterygium Sx -home antibiotic ointment TOP bid -f/u with unknown doctor as scheduled on 03/17 Diabetes Mellitus -home Lantus 6u sc HS -home Novolog 3u sc ACLD -hypoglycemia protocol Hx chronic parasthesias, neuropathic pain -home Lyrica 75mg po bid Hx HTN -home Clonidine 0/2mg po bid -home Labetalol 300mg po bid -home Minoxidil 10mg po bid Hx GERD -home omeprazole NF -> Protonix 40mg po daily Hx hard stool/constipation -hold Colace 2/2 diarrhea PPx -DVT: Heparin 5000u sc q8, SCD CI for neuropathic pain -GI: Protonix 40mg po daily -Diet: HHD 2g Na, Renal dialysis, Vegetarian Dispo: Patient will be discharged after HD. d/w Dr. Griffin Woods PGY-1 - Date & Time Date: 03/01/18 Time: 00:45 <Rosendo Fofana - Last Filed: 03/01/18 06:46> Results - Vital Signs Recent Vital Signs: Last Vital Signs Temp 98.2 F 03/01/18 01:03 Pulse 67 03/01/18 01:03 Resp 20 03/01/18 01:03 BP 127/60 03/01/18 01:03 Pulse Ox 95 03/01/18 01:03 - Labs Result Diagrams: 02/28/18 19:06 02/28/18 19:06 Labs: Laboratory Results - last 24 hr 02/28/18 02/28/18 02/28/18 19:06 19:06 19:06 WBC 7.0 RBC 3.57 L Hgb 10.9 L Hct 32.2 L MCV 90.3 D MCH 30.6 MCHC 33.9 RDW 14.1 Plt Count 145 MPV 11.3 Neut % (Auto) 64.1 Lymph % (Auto) 22.1 Bay % (Auto) 9.8 Eos % (Auto) 2.7 Baso % (Auto) 1.3 Neut # (Auto) 4.5 Lymph # (Auto) 1.6 Bay # (Auto) 0.7 Eos # (Auto) 0.2 Baso # (Auto) 0.1 Sodium 134 Potassium 4.6 Chloride 91 L Carbon Dioxide 25 Anion Gap 22 H BUN 38 H Creatinine 7.6 H* D Est GFR ( Amer) 7 Est GFR (Non-Af Amer) 6 Random Glucose 223 H Calcium 10.1 Total Bilirubin 0.8 AST 19 ALT 20 Alkaline Phosphatase 102 Total Protein 7.9 Albumin 4.5 Globulin 3.4 Albumin/Globulin Ratio 1.3 Lipase 133 Beta HCG, Quant < 2.39 Attending/Attestation - Attestation I have personally seen and examined this patient.: Yes I have fully participated in the care of the patient.: Yes I have reviewed all pertinent clinical information: Yes Notes (Text): 03/01/18 06:41 This patient was seen and examined in bed [address] Woods upon her arrival from the ER. History, Physical, Assessment and Plan, and Orders were gone over in detail with Dr. Woods. Plan of care was also gone over with the patient. Rosendo Fofana D.O.
[2018-03-01] MEDS ORDERED: Dextrose 50% SYRINGE Inj (50 ml) IV PRN (01:27)
[2018-03-01] MEDS ORDERED: Glucagon Recombinant 1 mg Inj IM PRN (01:27)
[2018-03-01] MEDS ORDERED: NEOMYCIN OP SCH (01:30)
[2018-03-01] MEDS ORDERED: DEXAMETHASONE OP SCH (01:30)
[2018-03-01] MEDS ORDERED: [UNRECOGNIZED DRUG - OTHER] OP SCH (01:30)
--- NOTE | 2018-03-01 09:30 | CP.PCM.CON ---
History of Present Illness - History of Present Illness History of Present Illness: Pt is a 42 year old female PMH HTN, T1DM, ESRD on HD (MWF), anxiety/depression, anemia, CVA in 2008 with right hand weakness presents to ED with diarrhea x1 day. Patient missed HD appointment due to being in the ED. She has had one day of diarrhea with 10 episodes and non bloody, watery diarrhea with LLQ cramping. Denies headache, nausea, vomiting, constipation, sick contacts, recent travel. On 02/19/18, she had R pterygium removal surgery at [facility] at present feels good, no abdominal pain, no diarrhea this morning PMHx: HTN, Type 1 DM, ESRD on HD (MWF), anxiety, depression, anemia, and CVA with right hand weakness(2008); 1 episode of seizures in 2008 ("due to htn", does not take medication) SurgHx: Right AVF ~2 years ago; AV fistula left UE became infected in 2006; B/l cataracts, R. retina surgery, Embolectomy from [facility], FamHx: Father- DM, prostate cancer, Heart disease; Mother- DM/ESRD ( ) SocHx: denies tobacco, alcohol, and drug use; lives with family- parents and siblings in ; unemployed. Review of Systems - Review of Systems Review of Systems: as per HPI, other than that 10 point ROS negative Past Patient History - Infectious Disease Hx of Infectious Diseases: None - Past Medical History & Family History Past Medical History?: Yes - Past Social History Smoking Status: Never Smoked Alcohol: None Drugs: Denies - CARDIAC Hx Hypertension: Yes - PULMONARY Hx Chronic Obstructive Pulmonary Disease (COPD): Yes Hx Pneumonia: Yes - NEUROLOGICAL Hx Seizures: Yes (2008) Hx Transient Ischemic Attacks (TIA): Yes - HEENT Hx HEENT Problems: Yes Hx Cataracts: Yes (HAD CUATE CATARACT SURGERY) - RENAL Hx Chronic Kidney Disease: Yes Hx Kidney Stones: No - ENDOCRINE/METABOLIC Hx Diabetes Mellitus Type 1: Yes - HEMATOLOGICAL/ONCOLOGICAL Hx Anemia: Yes - INTEGUMENTARY Hx Dermatological Problems: No - MUSCULOSKELETAL/RHEUMATOLOGICAL Hx Fractures: Yes (RT ANKLE) - GASTROINTESTINAL Hx Gastrointestinal Disorders: Yes Hx Gastroesophageal Reflux: Yes Hx Ulcer: Yes - PSYCHIATRIC Hx Anxiety: Yes Hx Depression: Yes Hx Substance Use: No - SURGICAL HISTORY Hx Surgeries: Yes Hx Arteriovenous Shunt: Yes (NON FUNC MITZI, NEW SIDNEY) Hx Cataract Extraction: Yes Hx Eye Surgery: Yes (RETINA RT) Hx Vascular Access Device: Yes (LEFT AV FISTULA) - ANESTHESIA Hx Anesthesia: Yes Hx Anesthesia Reactions: No Hx Malignant Hyperthermia: No Meds Allergies/Adverse Reactions: Allergies Allergy/AdvReac Type Severity Reaction Status Date / Time No Known Allergies Allergy Verified 11/20/17 03:44 - Medications Medications: Current Medications Cinacalcet (Sensipar) 90 mg PO DAILY [facility] Clonidine HCl (Catapres) 0.2 mg PO BID [facility] Dextrose (Dextrose 50% Inj) 0 ml IV STAT PRN; Protocol PRN Reason: Hypoglycemia Protocol Dextrose (Glutose 15) 0 gm PO ONCE PRN; Protocol PRN Reason: Hypoglycemia Protocol Glucagon (Glucagen Diagnostic Kit) 0 mg IM STAT PRN; Protocol PRN Reason: Hypoglycemia Protocol Heparin Sodium (Porcine) (Heparin) 5,000 units SC Q8 [facility] Last Admin: 03/01/18 05:13 Dose: Not Given Home Med (Neomycin/Polymyxin/Dexamethaso [Maxitrol Opth Oint]) 3.5 gm OP BID [facility] Dextrose (Dextrose 5% In Water 1000 Ml) 1,000 mls @ 0 mls/hr IV .Q0M PRN; Protocol PRN Reason: Hypoglycemia Protocol Insulin Aspart (Novolog) 3 unit SC ACLD [place] Insulin Glargine (Lantus) 6 unit SC HS [facility] Labetalol HCl (Normodyne) 300 mg PO BID [facility] Minoxidil (Loniten) 10 mg PO BID [facility] Pantoprazole Sodium (Protonix Ec Tab) 40 mg PO DAILY [facility] Pregabalin (Lyrica) 75 mg PO BID [facility] Sevelamer Carbonate (Renvela) 1,600 mg PO TIDCC [facility] Physical Exam - Constitutional Appears: Well, Non-toxic - Head Exam Head Exam: ATRAUMATIC, NORMOCEPHALIC - Eye Exam Eye Exam: EOMI, PERRL - ENT Exam ENT Exam: Mucous Membranes Moist - Neck Exam Neck exam: Positive for: Full Rom - Respiratory Exam Respiratory Exam: Clear to Auscultation Bilateral. absent: Rhonchi, Wheezes - Cardiovascular Exam Cardiovascular Exam: REGULAR RHYTHM, +S1, +S2 - GI/Abdominal Exam GI & Abdominal Exam: Normal Bowel Sounds, Soft. absent: Tenderness - Extremities Exam Extremities exam: Positive for: full ROM. Negative for: pedal edema - Neurological Exam Neurological exam: Alert, Oriented x3 - Psychiatric Exam Psychiatric exam: Normal Affect, Normal Mood - Skin Skin Exam: Normal Color, Warm Results - Vital Signs Recent Vital Signs: Last Vital Signs Temp 97.9 F 03/01/18 08:10 Pulse 81 03/01/18 08:10 Resp 20 03/01/18 08:10 BP 139/62 03/01/18 08:10 Pulse Ox 96 03/01/18 08:17 - Labs Result Diagrams: 02/28/18 19:06 02/28/18 19:06 Labs: Laboratory Results - last 24 hr 02/28/18 02/28/18 02/28/18 19:06 19:06 19:06 WBC 7.0 RBC 3.57 L Hgb 10.9 L Hct 32.2 L MCV 90.3 D MCH 30.6 MCHC 33.9 RDW 14.1 Plt Count 145 MPV 11.3 Neut % (Auto) 64.1 Lymph % (Auto) 22.1 Riley % (Auto) 9.8 Eos % (Auto) 2.7 Baso % (Auto) 1.3 Neut # (Auto) 4.5 Lymph # (Auto) 1.6 Riley # (Auto) 0.7 Eos # (Auto) 0.2 Baso # (Auto) 0.1 Sodium 134 Potassium 4.6 Chloride 91 L Carbon Dioxide 25 Anion Gap 22 H BUN 38 H Creatinine 7.6 H* D Est GFR ( Amer) 7 Est GFR (Non-Af Amer) 6 Random Glucose 223 H Calcium 10.1 Total Bilirubin 0.8 AST 19 ALT 20 Alkaline Phosphatase 102 Total Protein 7.9 Albumin 4.5 Globulin 3.4 Albumin/Globulin Ratio 1.3 Lipase 133 Beta HCG, Quant < 2.39 Assessment & Plan (1) Diarrhea Status: Acute (2) Chronic abdominal pain Status: Acute (3) Dialysis patient, noncompliant Status: Acute (4) ESRD (end stage renal disease) Status: Acute - Assessment and Plan (Free Text) Plan: chronic dialysis non compliance HD today bp reasonable clinically stable for discharge from renal standpoint after HD today - Date & Time Date: 03/01/18 Time: 09:32
[2018-03-01] MEDS ORDERED: Pantoprazole 40 mg EC Tab PO SCH (10:00)
[2018-03-01] MEDS: Labetalol Hydrochloride 300 mg Tab PO SCH ×2 (10:11→20:26)
--- NOTE | 2018-03-01 10:26 | CT ---
Date of service: 02/28/2018 PROCEDURE: CT Abdomen and Pelvis. HISTORY: Abdominal pain LLQ COMPARISON: None. TECHNIQUE: Contiguous axial images of the abdomen and pelvis pelvis performed following oral contrast. Coronal and Sagittal reformats generated. Radiation dose: Total exam DLP = 301.49 mGy-cm. This CT exam was performed using one or more of the following dose reduction techniques: Automated exposure control, adjustment of the mA and/or kV according to patient size, and/or use of iterative reconstruction technique. FINDINGS: LOWER THORAX: There are nodular curvilinear areas of atelectasis/scarring in the left lung base on. No evidence of cavitary lesion is identified. Ground-glass opacities present possibly due to air trapping. Heart size normal. Small hiatal hernia. LIVER: Liver exhibits normal size without masses collections or calcifications. The the GALLBLADDER AND BILE DUCTS: Cholelithiasis. PANCREAS: Pancreatic duct appears slightly dilated. No obvious pancreatic mass or collection seen on this noncontrast exam. SPLEEN: Unremarkable. No splenomegaly. Tiny sub cm low-attenuation lesions seen in the anterior aspect of the splenic parenchyma nonspecific. There are also a few scattered splenic calcifications consistent with prior exposure to granulomatous disease process. ADRENALS: There are no adrenal lesions. The the the the KIDNEYS AND URETERS: Kidneys appear atrophic with vascular calcifications. Small bilateral low-attenuation cystic foci are present. BLADDER: Grossly unremarkable. REPRODUCTIVE: Unremarkable. APPENDIX: Unremarkable. BOWEL: Evaluation of the bowel is limited due to incomplete opacification. Stomach is incompletely distended which in part accounts for thick-walled appearance. There are few loops of mild thick-walled proximal small bowel. Findings could represent gastroenteritis. No evidence of acute mechanical small bowel obstruction. The stool and air seen throughout the right colon. The transverse descending and sigmoid colon are relatively collapsed and difficult to evaluate however possibility of a colitis cannot be excluded PERITONEUM: Unremarkable. No fluid collection. No free air. LYMPH NODES: Unremarkable. No enlarged lymph nodes. VASCULATURE: Unremarkable. No aortic aneurysm. Mild o aortic atherosclerotic calcification or mural plaque present. BONES: Multilevel degenerative spondylosis of the lower thoracic and lumbar spine OTHER FINDINGS: None. IMPRESSION: Mild scarring changes seen in the left lung base. Tiny sub cm low-attenuation lesion within the anterior margin of the spleen of uncertain etiology. This could represent small hemangioma. Atrophic kidneys with vascular calcifications and bilateral cysts. Wall thickening of the stomach in part due to incomplete distention however gastritis/enteritis to be considered. Questionable of colonic wall thickening; possibility of a colitis not excluded. Cholelithiasis.
[2018-03-01] MEDS: (Novolog) Insulin Aspart, Recombinant 100 u/ml 10 ml vial SC SCH ×2 (12:12→20:27)
[2018-03-01] MEDS ORDERED: Simethicone 80 mg Chewtab PO PRN (12:39)
--- NOTE | 2018-03-01 17:13 | CP.PCM.DIS ---
Provider - Provider Date of Admission: 02/28/18 22:33 Attending physician: Rosendo Fofana MD Consults: Nephro: Marcus Time Spent in preparation of Discharge (in minutes): 70 Hospital Course - Lab Results Lab Results: Most Recent Lab Values WBC 7.0 K/uL (4.8-10.8) 02/28/18 19:06 RBC 3.57 Mil/uL (3.80-5.20) L 02/28/18 19:06 Hgb 10.9 g/dL (11.0-16.0) L 02/28/18 19:06 Hct 32.2 % (34.0-47.0) L 02/28/18 19:06 MCV 90.3 fL (81.0-99.0) D 02/28/18 19:06 MCH 30.6 pg (27.0-31.0) 02/28/18 19:06 MCHC 33.9 g/dL (33.0-37.0) 02/28/18 19:06 RDW 14.1 % (11.5-14.5) 02/28/18 19:06 Plt Count 145 K/uL (130-400) 02/28/18 19:06 MPV 11.3 fL (7.2-11.7) 02/28/18 19:06 Neut % (Auto) 64.1 % (50.0-75.0) 02/28/18 19:06 Lymph % (Auto) 22.1 % (20.0-40.0) 02/28/18 19:06 [place] % (Auto) 9.8 % (0.0-10.0) 02/28/18 19:06 Eos % (Auto) 2.7 % (0.0-4.0) 02/28/18 19:06 Baso % (Auto) 1.3 % (0.0-2.0) 02/28/18 19:06 Neut # (Auto) 4.5 K/uL (1.8-7.0) 02/28/18 19:06 Lymph # (Auto) 1.6 K/uL (1.0-4.3) 02/28/18 19:06 [place] # (Auto) 0.7 K/uL (0.0-0.8) 11/09/18 19:06 Eos # (Auto) 0.2 K/uL (0.0-0.7) 02/28/18 19:06 Baso # (Auto) 0.1 K/uL (0.0-0.2) 02/28/18 19:06 Sodium 134 mmol/L (132-148) 02/28/18 19:06 Potassium 4.6 mmol/L (3.6-5.2) 02/28/18 19:06 Chloride 91 mmol/L (98-107) L 02/28/18 19:06 Carbon Dioxide 25 mmol/L (22-30) 02/28/18 19:06 Anion Gap 22 (10-20) H 02/28/18 19:06 BUN 38 mg/dL (7-17) H 02/28/18 19:06 Creatinine 7.6 mg/dL (0.7-1.2) H* D 02/28/18 19:06 Est GFR ( Amer) 7 02/28/18 19:06 Est GFR (Non-Af Amer) 6 02/28/18 19:06 Random Glucose 223 mg/dL (65-105) H 02/28/18 19:06 Calcium 10.1 mg/dl (8.6-10.4) 02/28/18 19:06 Total Bilirubin 0.8 mg/dL (0.2-1.3) 02/28/18 19:06 AST 19 U/L (14-36) 02/28/18 19:06 ALT 20 U/L (9-52) 02/28/18 19:06 Alkaline Phosphatase 102 U/L (38-126) 02/28/18 19:06 Total Protein 7.9 g/dL (6.3-8.3) 02/28/18 19:06 Albumin 4.5 g/dL (3.5-5.0) 02/28/18 19:06 Globulin 3.4 gm/dL (2.2-3.9) 02/28/18 19:06 Albumin/Globulin Ratio 1.3 (1.0-2.1) 02/28/18 19:06 Lipase 133 U/L (23-300) 02/28/18 19:06 Beta HCG, Quant < 2.39 mIU/ML 02/28/18 19:06 Hep Bs Antigen Negative (NEGATIVE) 03/01/18 15:40 - Hospital Course Hospital Course: Upon Admission: Ms. 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 Patient missed HD appointment due to being in the ED. She has had one day of diarrhea with 10 episodes and non bloody, non melena watery diarrhea with LLQ cramping. Denies headache, nausea, vomiting, constipation, sick contacts, recent travel. On 02/19/18, she had R pterygium removal surgery. She is still using antibiotic ointment in the recovery phase. The eye remains red and bloodshot. In the ED, pt was hypertensive. Her BUN/Cr were 38/7.6. Pt was admitted for emergent HD. Hospital Course: Pt was admitted for HD. Nephro was consulted and recommended a session of HD, and stable for discharge after that. She received HD on 03/01/18. Pt was able to tolerate HD. CT abdomen: Mild scarring changes seen in the left lung base. Tiny sub cm low- attenuation lesion within the anterior margin of the spleen of uncertain etiology, possibly represent small hemangioma. Atrophic kidneys with vascular calcifications and bilateral cysts. Wall thickening of the stomach in part due to incomplete distention however gastritis/enteritis to be considered. Questionable of colonic wall thickening; possibility of a colitis not excluded. Cholelithiasis. Home meds were restarted. Upon Discharge: Pt was deemed stable for discharge. She was instructed to take the medications prescribed to her. 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 Pt understood instructions and agreed. Discharge Exam - Head Exam Head Exam: ATRAUMATIC, NORMOCEPHALIC - Eye Exam Eye Exam: EOMI, Normal appearance Pupil Exam: NORMAL ACCOMODATION - ENT Exam ENT Exam: Mucous Membranes Moist - Respiratory Exam Respiratory Exam: Clear to PA & Lateral, NORMAL BREATHING PATTERN. absent: Rales, Rhonchi, Wheezes - Cardiovascular Exam Cardiovascular Exam: REGULAR RHYTHM, +S1, +S2. absent: Gallop, Rubs, Systolic Murmur - GI/Abdominal Exam GI & Abdominal Exam: Normal Bowel Sounds, Soft. absent: Distended, Tenderness - Extremities Exam Extremities exam: normal inspection - Neurological Exam Neurological exam: Alert, Oriented x3 - Skin Skin Exam: Normal Color Discharge Plan - Follow Up Plan Condition: STABLE Disposition: HOME/ ROUTINE Instructions: Chronic Pain (DC), End Stage Kidney Disease (DC) Additional Instructions: Patient may be discharged after HD later today. Please inform her to continue her normal HD MWF at [facility]. She is to f/u with her opthamologist at [facility] as scheduled on 03/17. Please f/u with PMD within the next 5 days if her diarrhea and abdominal pain have not ceased. She is to continue her home medications as previously instructed. Please see medicine reconciliation for the home meds that she should continue, including her home omeprazole dose. Referrals: [facility] [Outside] [facility] [Outside]
[2018-03-01 18:45] VITALS: BP 102/50; PULSE 85; RESP 16; TEMP 98.1; O2SAT 96
[2018-03-01] MEDS ORDERED: (Lantus) Insulin Glargine, Recombinant SC SCH (22:00)
== END 2018-03-01 20:34 | disposition home or self-care (01) ==
LOC: C.ER 17:47 → C.3T 22:33
PROVIDERS: ADMIT Family Medicine; ATTEND Family Medicine
DX: I12.0 Hypertensive chronic kidney disease with stage 5 chronic kidney disease or end stage renal disease (principal); E10.22 Type 1 diabetes mellitus with diabetic chronic kidney disease; N18.6 End stage renal disease; Z99.2 Dependence on renal dialysis; D64.9 Anemia, unspecified; F32.9 Major depressive disorder, single episode, unspecified; F41.9 Anxiety disorder, unspecified; R19.7 Diarrhea, unspecified; K80.20 Calculus of gallbladder without cholecystitis without obstruction; J44.9 Chronic obstructive pulmonary disease, unspecified; G89.29 Other chronic pain; Z91.15 Patient's noncompliance with renal dialysis; Z86.73 Personal history of transient ischemic attack (TIA), and cerebral infarction without residual deficits
CPT/HCPCS: 36415; 74176; 80053; 83690; 84702; 85025; 87340; 96374; 99285; G0378; J2270; Q9966

== ENCOUNTER 2018-06-16 12:40 | Inpatient (IN) | payer MEDICARE, OTHER ==
[2018-06-16 12:40] VITALS: BMI 22.4
--- NOTE | 2018-06-16 12:50 | C.PDOC ---
History Of Present Illness 43 year old female, whose past medical history includes Type 1 Diabetes, ESRD (dialysis M-W-F), HTN and CHF, presents to the ED for evaluation of generalized body aches which began three days ago. Patient reports extensive body aches, which includes pain to her hips, legs and back. She also reports dizziness, described as room-spinning sensation, nausea and diarrhea. Patient also reports fever, chills, photophobia, and weakness. Patient states she did not attend dialysis today due to her symptoms. She denies chest pain, cough, shortness of breath, abdominal pain and vomiting. Time Seen by Provider: 06/16/18 12:46 Chief Complaint (Nursing): Dizziness/Lightheaded History Per: Patient History/Exam Limitations: no limitations Onset/Duration Of Symptoms: Hrs Current Symptoms Are (Timing): Still Present Past Medical History Reviewed: Historical Data, Nursing Documentation, Vital Signs - Medical History PMH: Anemia, Anxiety, COPD, Depression, Diabetes (Type 1 ), Fractures (RT ANKLE), GERD, HTN, Pneumonia, End Stage Renal Disease, Chronic Kidney Disease, Seizures (2008), TIA Denies: Kidney Stones Surgical History: No Surg Hx - [facility] Procedures (11/20/17) DILATION OF R BASILIC VEIN WITH INTRALUM DEV, PERC APPROACH (07/13/16) DILATION OF RIGHT BASILIC VEIN, PERCUTANEOUS APPROACH (05/03/17) DILATION OF UPPER ARTERY, PERCUTANEOUS APPROACH (07/24/17) EXTIRPATION OF MATTER FROM RIGHT BASILIC VEIN, PERC APPROACH (07/13/16) FLUOROSCOPY OF INF VENA CAVA USING L OSM CONTRAST, GUIDANCE (05/29/16) INDIVIDUAL PSYCHOTHERAPY, COGNITIVE-BEHAVIORAL (10/23/16) INDIVIDUAL PSYCHOTHERAPY, SUPPORTIVE (10/23/16) INSERTION OF INFUSION DEV INTO INF VENA CAVA, PERC APPROACH (05/29/16) INSERTION OF INFUSION DEV INTO SUP VENA CAVA, PERC APPROACH (07/13/16) INSERTION OF INFUSION DEVICE INTO LOWER VEIN, PERC APPROACH (07/24/17) INTRODUCE OTH THROMBOLYTIC IN PERIPH VEIN, PERC (07/13/16) PERFORMANCE OF URINARY FILTRATION, MULTIPLE (01/03/17) REMOVAL OF OTHER DEVICE ON RIGHT INGUINAL REGION (05/29/16) ULTRASONOGRAPHY OF INFERIOR VENA CAVA, GUIDANCE (07/13/16) Family History: States: Unknown Family Hx - Social History Hx Tobacco Use: Yes Hx Alcohol Use: No Hx Substance Use: No - Immunization History Hx Tetanus Toxoid Vaccination: No Hx Influenza Vaccination: Yes Hx Pneumococcal Vaccination: Yes Review Of Systems Constitutional: Positive for: Fever, Chills, Weakness Eyes: Positive for: Other (photophobia ) Cardiovascular: Negative for: Chest Pain Respiratory: Negative for: Shortness of Breath Gastrointestinal: Positive for: Nausea, Diarrhea. Negative for: Vomiting, Abdominal Pain Neurological: Positive for: Dizziness Physical Exam - Physical Exam Appears: Non-toxic, No Acute Distress Skin: Normal Color, Warm, Dry, Other (warm to touch) Head: Atraumatic, Normacephalic Eye(s): bilateral: Normal Inspection Oral Mucosa: Moist Neck: Supple Chest: Symmetrical, No Deformity, No Tenderness Cardiovascular: Rhythm Regular, No Murmur Respiratory: No Wheezing Gastrointestinal/Abdominal: Soft, No Tenderness, No Guarding, No Rebound Extremity: Normal ROM, Capillary Refill (less than 2 seconds ) Neurological/Psych: Oriented x3, Normal Speech, Normal Cognition ED Course And Treatment - Laboratory Results Result Diagrams: 06/16/18 13:27 06/16/18 13:28 O2 Sat by Pulse Oximetry: 95 (on RA) Pulse Ox Interpretation: Normal - Other Rad CXR X-Ray: Read By Radiologist Interpretation: Accession No. : [id number]. Patient Name / ID : JACINTO HESTER / [id number]. Exam Date : 06/16/2018 14:05:23 ( Approved ). Study Comment : Sex / Age : F / 43Y. Creator : Roselyn Martinez MD. Dictator : Roselyn Martinez MD. Employee Relations Representative : [employer] Pumper : Roselyn Martinez MD. Approver2 : Report Date : 06/16/2018 14:34:56. My Comment : . Date of service: 06/16/2018. HISTORY: Evaluate for pneumonia. COMPARISON: 11/20/2017. TECHNIQUE: Chest PA and lateral. FINDINGS: LINES AND TUBES: None. Right axillary stent graft is stable in appearance. LUNG AND PLEURA: The lungs are well inflated. There is consolidation in both lower lobes, more conspicuous on the right. No pleural effusion or pneumothorax. HEART AND MEDIASTINUM: The heart is not enlarged. No aortic atherosclerotic calcifications present. The hilar and mediastinal contours are within normal limits. SKELETAL STRUCTURES: The bony structures are within normal limits for the patient's age. VISUALIZED UPPER ABDOMEN: Normal. OTHER FINDINGS: None. IMPRESSION: Bilateral lower lobe pneumonia, more conspicuous on the right. Follow-up after medical management is recommended to ensure complete resolution. The final report is tagged to the PA review folder. Medical Decision Making Medical Decision Making: Progress: Bloodwork, urinalysis, CXR, EKG, Flu swab ordered and reviewed. Tylenol PO given. Patient is negative for Flu A/B. CXR: Bilateral lower lobe pneumonia, more conspicuous on the right. Labs reviewed. Patient started on IV Vanco and Zosyn. Patient with known source of infection (pneumonia) presenting with 3 SIRS (low grade fever, tachycardia, and bandemia). However she does not meet criteria for sepsis due to not possessing any organ criteria. Creatinine not included as patient has ESRD. Nevertheless, patient was treated with IV antibiotics and had blood cultures drawn within 3 hours. Patient has normal lactate, normal pressure. No code sepsis. Fluids not given. Paged Dr. Velazquez, patient's accounts payable payroll coordinator. Discussed case with Dr. Santiago, will arrange for dialysis in the hospital. 15:42 Case discussed w/ Dr. Campos, accepts to hospitalist service. Will admit patient for treatment for pneumonia. Disposition Counseled Patient/Family Regarding: Studies Performed, Diagnosis - Disposition Disposition: HOSPITALIZED Disposition Time: 15:45 Condition: STABLE - POA Present On Arrival: None Core Measure Indicators: Pneumonia - Clinical Impression Clinical Impression: ESRD (end stage renal disease) on dialysis, Pneumonia - PA / BENEFITS CONSULTING ANALYST / Resident Statement MD/DO has reviewed & agrees with the documentation as recorded. - Scribe Statement The provider has reviewed the documentation as recorded by the Scribe (Peggy Fofana) All medical record entries made by the Scribe were at my direction and p ersonally dictated by me. I have reviewed the chart and agree that the record accurately reflects my personal performance of the history, physical exam, medical decision making, and the department course for this patient. I have also personally directed, reviewed, and agree with the discharge instructions and disposition. Decision To Admit - Pt Status Changed To: Hospital Disposition Of: Observation - . Bed Request Type: Regular Admitting Physician: Debbi Campos Patient Diagnosis: ESRD (end stage renal disease) on dialysis, Pneumonia
[2018-06-16 13:32] LABS: BASO # 0.1 K/uL (0.0-0.2); HEMOGLOBIN 11.7 g/dL (11.0-16.0); MEAN CORPUSCULAR HEMOGLOBIN 30.8 pg (27.0-31.0); RBC 3.81 Mil/uL (3.80-5.20)
[2018-06-16 13:43] LABS: BASO % 0.6 % (0.0-2.0); LYMPH # 0.5 K/uL (1.0-4.3); LYMPH % 5.6 % (20.0-40.0); MEAN CORPUSCULAR HGB CONC 33.5 g/dL (33.0-37.0); MEAN PLATELET VOLUME 12.6 fL (7.2-11.7); MONO # 0.8 K/uL (0.0-0.8); MONO % 8.7 % (0.0-10.0); NEUT # 7.9 K/uL (1.8-7.0); NEUT % 85.1 % (50.0-75.0); RED CELL DISTRIBUTION WIDTH 14.3 % (11.5-14.5); WHITE BLOOD COUNT 9.2 K/uL (4.8-10.8)
[2018-06-16 13:44] LABS: PLATELET COUNT 91 K/uL (130-400)
[2018-06-16 14:14] LABS: VENOUS BLOOD GAS BASE EXCESS 5.1 mmol/L (0.0-2.0); VENOUS BLOOD GAS PCO2 47 mmHg (40-60); VENOUS BLOOD GAS PO2 33 mm/Hg (30-55); VENOUS BLOOD PH 7.42 (7.32-7.43)
--- NOTE | 2018-06-16 14:38 | RAD ---
Date of service: 06/16/2018 HISTORY: Evaluate for pneumonia COMPARISON: 11/20/2017 TECHNIQUE: Chest PA and lateral FINDINGS: LINES AND TUBES: None. Right axillary stent graft is stable in appearance. LUNG AND PLEURA: The lungs are well inflated. There is consolidation in both lower lobes, more conspicuous on the right No pleural effusion or pneumothorax. HEART AND MEDIASTINUM: The heart is not enlarged. No aortic atherosclerotic calcifications present. The hilar and mediastinal contours are within normal limits. SKELETAL STRUCTURES: The bony structures are within normal limits for the patient's age. VISUALIZED UPPER ABDOMEN: Normal. OTHER FINDINGS: None. IMPRESSION: Bilateral lower lobe pneumonia, more conspicuous on the right. Follow-up after medical management is recommended to ensure complete resolution. The final report is tagged to the PA review folder.
[2018-06-16 14:41] LABS: ALB/GLOB RATIO 1.4 (1.0-2.1); ALBUMIN 4.4 g/dL (3.5-5.0); CALCIUM 9.6 mg/dl (8.6-10.4)
[2018-06-16] MEDS ORDERED: Piperacill/Tazo 3.375gm in Dex 3.375 GM/50 ML BAG IV STA (14:58)
[2018-06-16] MEDS ORDERED: Vancomycin 1 gm/NS 200 ml 1 GM/200 ML BAG IVPB STA (14:58)
[2018-06-16 15:11] LABS: INR 1.2; PROTHROMBIN TIME 12.8 SECONDS (9.7-12.2)
[2018-06-16] MEDS ORDERED: Piperacillin/Tazobact 3.375 gm 100 ML IVPB ONE (15:20)
[2018-06-16 15:26] LABS: BANDS 23 % (0-2); EOSINOPHIL 1 % (0-4); LYMPHOCYTE 2 % (20-40); MONOCYTE 10 % (0-10); NEUTROPHIL 64 % (50-75); TOTAL CELLS COUNTED 100
[2018-06-16 15:27] LABS: ANISOCYTOSIS SLIGHT; HYPOCHROMIC SLIGHT; PLATELET ESTIMATE DECREASED (NORMAL); POIKILOCYTOSIS SLIGHT; TARGET CELLS SLIGHT
--- NOTE | 2018-06-16 16:21 | CP.PCM.HP ---
<Nano Dee - Last Filed: 06/16/18 17:45> History of Present Illness - History of Present Illness History of Present Illness: 43 year old female with past medical history as noted below presents to the ER for body aches. Patient states she has been having bilateral hand pain and ting ling/numbness for the past month. Patient states her pain in her hands is a 10/10 pain and states the Lyrica has not been helping her pain. She states yesterday she felt like she had chills at home. She states one of her siblings has a cough at home but otherwise no one else is sick. Patient denies chest pain, shortness of breath, cough, fever, nausea or vomiting. Past Medical History: DM1, HTN, ESRD on dialysis [facility] [place] with Dr. Velazquez, Hx of CVA, depression Past Surgical History: B/l cataracts, R. retina surgery, AV shunt in R. arm, Embolectomy from R. LE, AV fistula left UE collapsed. Family History: Mother - DM/ESRD; Dad - Heart problems, prostate cancer Medications: Novolog 4 units before meals, Lantus 6 units HS, Labetolol 300 mg PO BID, Minoxidil 10 mg PO BID, Clonidine 0.2 mg PO BID, Lyrica 75mg PO HS, Sensipar 90 mg daily, Renvela 3 tabs TID, Nexium 40 mg daily Allergies: NKDA Social History: denies alcohol, smoking, or illicit drug use; lives with father and 2 siblings Present on Admission - Present on Admission Any Indicators Present on Admission: No Review of Systems - Constitutional Constitutional: Chills. absent: Fever, Headache - Cardiovascular Cardiovascular: absent: Chest Pain, Dyspnea, Palpitations - Respiratory Respiratory: absent: Cough, Dyspnea - Gastrointestinal Gastrointestinal: absent: Constipation, Diarrhea, Nausea, Vomiting - Musculoskeletal Additional comments: bilateral hand numbness and burning pain - Neurological Neurological: absent: Dizziness, Headaches Past Patient History - Infectious Disease Hx of Infectious Diseases: None - Past Medical History & Family History Past Medical History?: Yes - Past Social History Smoking Status: Never Smoked - CARDIAC Hx Hypertension: Yes - PULMONARY Hx Chronic Obstructive Pulmonary Disease (COPD): Yes Hx Pneumonia: Yes - NEUROLOGICAL Hx Seizures: Yes (2008) Hx Transient Ischemic Attacks (TIA): Yes - HEENT Hx HEENT Problems: Yes Hx Cataracts: Yes (HAD CUATE CATARACT SURGERY) - RENAL Hx Chronic Kidney Disease: Yes Hx Kidney Stones: No - ENDOCRINE/METABOLIC Hx Diabetes Mellitus Type 1: Yes - HEMATOLOGICAL/ONCOLOGICAL Hx Anemia: Yes - INTEGUMENTARY Hx Dermatological Problems: No - MUSCULOSKELETAL/RHEUMATOLOGICAL Hx Fractures: Yes (RT ANKLE) - GASTROINTESTINAL Hx Gastrointestinal Disorders: Yes Hx Gastroesophageal Reflux: Yes Hx Ulcer: Yes - PSYCHIATRIC Hx Anxiety: Yes Hx Depression: Yes Hx Substance Use: No - SURGICAL HISTORY Hx Surgeries: Yes Hx Arteriovenous Shunt: Yes (NON FUNC MITZI, NEW SIDNEY) Hx Cataract Extraction: Yes Hx Eye Surgery: Yes (RETINA RT) Hx Vascular Access Device: Yes (LEFT AV FISTULA) - ANESTHESIA Hx Anesthesia: Yes Hx Anesthesia Reactions: No Hx Malignant Hyperthermia: No Meds Allergies/Adverse Reactions: Allergies Allergy/AdvReac Type Severity Reaction Status Date / Time No Known Allergies Allergy Verified 06/16/18 12:47 Physical Exam - Constitutional Appears: Non-toxic, Agitated, Chronically Ill - Head Exam Head Exam: ATRAUMATIC, NORMAL INSPECTION - Eye Exam Eye Exam: EOMI, Normal appearance - ENT Exam ENT Exam: Mucous Membranes Moist - Respiratory Exam Respiratory Exam: Clear to Auscultation Bilateral, NORMAL BREATHING PATTERN - Cardiovascular Exam Cardiovascular Exam: REGULAR RHYTHM, +S1, +S2 - GI/Abdominal Exam GI & Abdominal Exam: Normal Bowel Sounds, Soft. absent: Tenderness - Extremities Exam Extremities exam: Positive for: normal inspection, pedal pulses present. Negative for: pedal edema, tenderness - Neurological Exam Neurological exam: Alert, Oriented x3 - Expanded Neurological Exam Expanded Patient oriented to: person, place, time Neuro motor strength exam: Left Upper Extremity: 5, Right Upper Extremity: 5, Left Lower Extremity: 5, Right Lower Extremity: 5 Coma Scale Eye Opening: SPONTANEOUS Coma Scale Motor Response: OBEYS COMMANDS - Psychiatric Exam Psychiatric exam: Agitated - Skin Skin Exam: Normal Color Results - Vital Signs Recent Vital Signs: Last Vital Signs Temp 98.7 F 06/16/18 15:37 Pulse 104 H 06/16/18 14:20 Resp 19 06/16/18 14:20 BP 105/48 L 06/16/18 14:20 Pulse Ox 95 06/16/18 15:52 - Labs Result Diagrams: 06/16/18 13:27 06/16/18 13:28 Labs: Laboratory Results - last 24 hr 06/16/18 06/16/18 06/16/18 13:27 13:28 13:28 WBC 9.2 RBC 3.81 Hgb 11.7 Hct 35.1 MCV 92.0 MCH 30.8 MCHC 33.5 RDW 14.3 Plt Count 91 L D MPV 12.6 H Neut % (Auto) 85.1 H Lymph % (Auto) 5.6 L Spencer % (Auto) 8.7 Eos % (Auto) 0.0 Baso % (Auto) 0.6 Neut # (Auto) 7.9 H Lymph # (Auto) 0.5 L Spencer # (Auto) 0.8 Eos # (Auto) 0.0 Baso # (Auto) 0.1 Neutrophils % (Manual) 64 Band Neutrophils % 23 H* Lymphocytes % (Manual) 2 L Monocytes % (Manual) 10 Eosinophils % (Manual) 1 Differential Comment Platelet Estimate Decreased L Hypochromasia (manual) Slight Poikilocytosis (manual Slight Anisocytosis (manual) Slight Target Cells Slight PT INR APTT pO2 VBG pH VBG pCO2 VBG HCO3 VBG Total CO2 VBG O2 Sat (Calc) VBG Base Excess VBG Potassium Glucose Lactate Sodium 134 Potassium 4.9 Chloride 90 L Carbon Dioxide 30 Anion Gap 19 BUN 68 H Creatinine 9.5 H* D Est GFR ( Amer) 5 Est GFR (Non-Af Amer) 5 Random Glucose 98 D Calcium 9.6 Phosphorus 4.3 Magnesium 2.2 Total Bilirubin 0.5 AST 29 ALT 17 Alkaline Phosphatase 139 H D Total Protein 7.5 Albumin 4.4 Globulin 3.2 Albumin/Globulin Ratio 1.4 Venous Blood Potassium Influenza Typ A,B (EIA) Negative for flu a/b 06/16/18 06/16/18 14:10 15:05 WBC RBC Hgb Hct MCV MCH MCHC RDW Plt Count MPV Neut % (Auto) Lymph % (Auto) Spencer % (Auto) Eos % (Auto) Baso % (Auto) Neut # (Auto) Lymph # (Auto) Spencer # (Auto) Eos # (Auto) Baso # (Auto) Neutrophils % (Manual) Band Neutrophils % Lymphocytes % (Manual) Monocytes % (Manual) Eosinophils % (Manual) Differential Comment Platelet Estimate Hypochromasia (manual) Poikilocytosis (manual Anisocytosis (manual) Target Cells PT 12.8 H INR 1.2 APTT 33 pO2 33 VBG pH 7.42 VBG pCO2 47 VBG HCO3 28.0 VBG Total CO2 31.9 H VBG O2 Sat (Calc) 64.7 VBG Base Excess 5.1 H VBG Potassium 4.8 Glucose 86 Lactate 1.2 Sodium 136.0 Potassium Chloride 96.0 L Carbon Dioxide Anion Gap BUN Creatinine Est GFR ( Amer) Est GFR (Non-Af Amer) Random Glucose Calcium Phosphorus Magnesium Total Bilirubin AST ALT Alkaline Phosphatase Total Protein Albumin Globulin Albumin/Globulin Ratio Venous Blood Potassium 4.8 Influenza Typ A,B (EIA) Assessment & Plan - Assessment and Plan (Free Text) Assessment: Pneumonia/Bands - Chest Xray: Bilateral lower lobe pneumonia, more conspicuous on the right. - Bands 23 - Influenza negative - f/u blood culture; strep pneumonia; mycoplasma pneumoniae - Medications: * Patient was given Zosyn and Vancomycin in the ER * Continue Zosyn 2.25mg IV q6h * Tylenol 650mg q6prn for fever ESRD on HD MWF - Nephro Consult: Dr. 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 - Platelets 91 - Continue to monitor History of Hypertension - Resumed home regimen: * Labetolol 300 PO twice daily - hold if systolic B/P <100 * Minoxidil 10mg PO BID - to begin 06/17/18 * Clonidine 0.2mg PO BID History of Type 1 DM - Hemoglobin A1c 11/2017 - 5.9 - Accuchecks // Hypoglycemia Protocol - Renal/ Carb Consistent Diet - ISS- moderate - Resumed home regimen: Novolog 4 Units AC, Lantus 6 Units HS History of CVA - Continued home medication Crestor 10mg PO QHS History of Paresthesia/Neuropathic pain (Hands, Arm, Neck) - Resumed home regimen: Lyrica 75mg PO HS History of GERD - Protonix 40mg IVP daily Prophylaxis - Protonix 40mg IVP QD - SCDs - VTE contraindication - due to thrombocytopenia Case discussed with Dr. Kayla Dee PGY-2 <Hermilo aGrza - Last Filed: 06/18/18 08:30> Results - Vital Signs Recent Vital Signs: Last Vital Signs Temp 98.0 F 06/18/18 07:15 Pulse 86 06/18/18 07:15 Resp 20 06/18/18 07:15 BP 125/72 06/18/18 07:15 Pulse Ox 97 06/18/18 07:15 - Labs Result Diagrams: 06/18/18 07:23 06/18/18 07:23 Labs: Laboratory Results - last 24 hr 06/17/18 06/17/18 06/17/18 06:27 08:11 08:11 WBC 6.5 RBC 3.64 L Hgb 11.2 Hct 33.8 L MCV 92.9 MCH 30.8 MCHC 33.2 RDW 14.0 Plt Count 86 L MPV 12.5 H Neut % (Auto) 76.6 H Lymph % (Auto) 13.7 L Spencer % (Auto) 7.8 Eos % (Auto) 1.1 Baso % (Auto) 0.8 Neut # (Auto) 5.0 Lymph # (Auto) 0.9 L Spencer # (Auto) 0.5 Eos # (Auto) 0.1 Baso # (Auto) 0.1 Differential Comment Sodium 136 Potassium 5.0 Chloride 95 L Carbon Dioxide 27 Anion Gap 19 BUN 64 H Creatinine 9.0 H* Est GFR ( Amer) 6 Est GFR (Non-Af Amer) 5 POC Glucose (mg/dL) 96 Random Glucose 50 L D Calcium 9.9 Phosphorus 6.3 H Magnesium 2.3 Total Bilirubin 0.9 AST 77 H D ALT 27 Alkaline Phosphatase 148 H Total Protein 7.3 Albumin 4.0 Globulin 3.3 Albumin/Globulin Ratio 1.2 Random Vancomycin 06/17/18 06/17/18 06/17/18 11:26 16:03 16:24 WBC RBC Hgb Hct MCV MCH MCHC RDW Plt Count MPV Neut % (Auto) Lymph % (Auto) Spencer % (Auto) Eos % (Auto) Baso % (Auto) Neut # (Auto) Lymph # (Auto) Spencer # (Auto) Eos # (Auto) Baso # (Auto) Differential Comment Sodium Potassium Chloride Carbon Dioxide Anion Gap BUN Creatinine Est GFR ( Amer) Est GFR (Non-Af Amer) POC Glucose (mg/dL) 79 117 H Random Glucose Calcium Phosphorus Magnesium Total Bilirubin AST ALT Alkaline Phosphatase Total Protein Albumin Globulin Albumin/Globulin Ratio Random Vancomycin < 5.0 06/17/18 06/18/18 06/18/18 21:21 07:23 07:23 WBC 5.5 RBC 3.38 L Hgb 10.3 L Hct 31.6 L MCV 93.4 MCH 30.5 MCHC 32.7 L RDW 14.3 Plt Count 79 L MPV 12.5 H Neut % (Auto) 63.0 Lymph % (Auto) 20.2 Spencer % (Auto) 13.3 H Eos % (Auto) 2.5 Baso % (Auto) 1.0 Neut # (Auto) 3.4 Lymph # (Auto) 1.1 Spencer # (Auto) 0.7 Eos # (Auto) 0.1 Baso # (Auto) 0.1 Differential Comment Sodium 136 Potassium 4.4 Chloride 97 L Carbon Dioxide 27 Anion Gap 16 BUN 32 H Creatinine 5.4 H Est GFR ( Amer) 11 Est GFR (Non-Af Amer) 9 POC Glucose (mg/dL) 174 H Random Glucose 115 H D Calcium 7.7 L Phosphorus 4.0 Magnesium 2.2 Total Bilirubin 1.2 AST 64 H ALT 39 Alkaline Phosphatase 212 H D Total Protein 7.0 Albumin 3.8 Globulin 3.2 Albumin/Globulin Ratio 1.2 Random Vancomycin 06/18/18 07:23 WBC RBC Hgb Hct MCV MCH MCHC RDW Plt Count MPV Neut % (Auto) Lymph % (Auto) Spencer % (Auto) Eos % (Auto) Baso % (Auto) Neut # (Auto) Lymph # (Auto) Spencer # (Auto) Eos # (Auto) Baso # (Auto) Differential Comment Sodium Potassium Chloride Carbon Dioxide Anion Gap BUN Creatinine Est GFR ( Amer) Est GFR (Non-Af Amer) POC Glucose (mg/dL) Random Glucose Calcium Phosphorus Magnesium Total Bilirubin AST ALT Alkaline Phosphatase Total Protein Albumin Globulin Albumin/Globulin Ratio Random Vancomycin 15.1 Attending/Attestation - Attestation I have personally seen and examined this patient.: Yes I have fully participated in the care of the patient.: Yes I have reviewed all pertinent clinical information: Yes Notes (Text): Seen and examined with the resident. History taken from the patient in detail r/o bacteremia(ESRD on HD),pneumonia. 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 Hold BP meds and monitor BP at tele unit I agree with the resident's documentation. ezra arreola
[2018-06-16] MEDS: Pantoprazole 40 mg EC Tab PO SCH (16:45)
[2018-06-16] MEDS: (Novolog) Insulin Aspart, Recombinant 100 u/ml 10 ml vial SC SCH (16:45)
[2018-06-16] MEDS ORDERED: Vancomycin 1 GM 1 GM/250 ML BAG IVPB ONE (16:47)
[2018-06-16] MEDS ORDERED: oxyCODONE 10 mg Immediate Release Tab PO ONE (16:51)
[2018-06-16] MEDS ORDERED: Glucagon Recombinant 1 mg Inj IM PRN (16:56)
[2018-06-16] MEDS ORDERED: Dextrose 50% SYRINGE Inj (50 ml) IV PRN (16:56)
[2018-06-16] MEDS ORDERED: Labetalol Hydrochloride 300 mg Tab PO SCH (18:00)
[2018-06-16] MEDS: Piperacill/Tazo 2.25gm in Dex 2.25 GM/50 ML BAG IVPB SCH ×2 (18:35→23:28)
[2018-06-16] MEDS: Labetalol Hydrochloride 300 mg Tab PO SCH (20:00)
[2018-06-16] MEDS: (Novolin R) Insulin Human Regular 100 units/ml vial SC SCH (22:10)
[2018-06-16] MEDS: (Lantus) Insulin Glargine, Recombinant SC SCH (22:10)
[2018-06-16] MEDS ORDERED: Sodium Chloride 0.9% 250 ML IV ONE (22:29)
[2018-06-17] MEDS: Albuterol-Ipratrop 3 mg / 0.5 (3 ml) UD INH SCH ×6 (04:10→19:07)
[2018-06-17] MEDS: Piperacill/Tazo 2.25gm in Dex 2.25 GM/50 ML BAG IVPB SCH ×4 (05:30→23:50)
[2018-06-17] MEDS: (Novolin R) Insulin Human Regular 100 units/ml vial SC SCH ×4 (08:24→21:56)
[2018-06-17 08:59] LABS: BASO # 0.1 K/uL (0.0-0.2); BASO % 0.8 % (0.0-2.0); EOS # 0.1 K/uL (0.0-0.7); EOS % 1.1 % (0.0-4.0); HEMOGLOBIN 11.2 g/dL (11.0-16.0); LYMPH # 0.9 K/uL (1.0-4.3); LYMPH % 13.7 % (20.0-40.0); MEAN CELL VOLUME 92.9 fL (81.0-99.0); MEAN CORPUSCULAR HEMOGLOBIN 30.8 pg (27.0-31.0); MEAN CORPUSCULAR HGB CONC 33.2 g/dL (33.0-37.0); MEAN PLATELET VOLUME 12.5 fL (7.2-11.7); MONO # 0.5 K/uL (0.0-0.8); MONO % 7.8 % (0.0-10.0); NEUT % 76.6 % (50.0-75.0); NRBC % 0.1 % (0.0-2.0); RBC 3.64 Mil/uL (3.80-5.20); WHITE BLOOD COUNT 6.5 K/uL (4.8-10.8)
[2018-06-17] MEDS: Labetalol Hydrochloride 300 mg Tab PO SCH ×2 (09:23→18:04)
[2018-06-17] MEDS: Pantoprazole 40 mg EC Tab PO SCH (09:53)
[2018-06-17 11:03] LABS: ALB/GLOB RATIO 1.2 (1.0-2.1); CALCIUM 9.9 mg/dl (8.6-10.4)
--- NOTE | 2018-06-17 11:06 | CP.PCM.PN ---
<Guerrero Berry - Last Filed: 06/17/18 19:53> Subjective - Date & Time of Evaluation Date of Evaluation: 06/17/18 Time of Evaluation: 08:00 - Subjective Subjective: PGY-[address] Garza service Patient is seen and examined at bedside. Patient states feeling dizzy when getting up to brush her teeth. Patient states her pain on right arm continues, and describes numbness and tingling sensation in both lateral side of her palms, mostly on 1st, 2nd and 3rd fingers. As per nurse, blood pressure continues to be low. Patient denies fevers, chest pain, shortness of breath, abdominal pain or urinary symptoms. Objective - Vital Signs/Intake and Output Vital Signs (last 24 hours): Temp Pulse Resp BP Pulse Ox 98.4 F 80 20 102/52 L 100 06/17/18 07:00 06/17/18 08:39 06/17/18 07:00 06/17/18 07:00 06/17/18 07:00 - Medications Medications: Current Medications Acetaminophen (Tylenol 325mg Tab) 650 mg PO Q6 PRN PRN Reason: Fever >100.4 F Albuterol/Ipratropium (Duoneb 3 Mg/0.5 Mg (3 Ml) Ud) 3 ml INH RQ4 [facility] Last Admin: 06/17/18 08:14 Dose: Not Given Cinacalcet (Sensipar) 90 mg PO DAILY [facility] Last Admin: 06/17/18 09:53 Dose: 90 mg Clonidine HCl (Catapres) 0.2 mg PO BID [facility] Last Admin: 06/17/18 09:23 Dose: Not Given Dextrose (Dextrose 50% Inj) 0 ml IV STAT PRN; Protocol PRN Reason: Hypoglycemia Protocol Dextrose (Glutose 15) 0 gm PO ONCE PRN; Protocol PRN Reason: Hypoglycemia Protocol Glucagon (Glucagen Diagnostic Kit) 0 mg IM STAT PRN; Protocol PRN Reason: Hypoglycemia Protocol Dextrose (Dextrose 5% In Water 1000 Ml) 1,000 mls @ 0 mls/hr IV .Q0M PRN; Prot ocol PRN Reason: Hypoglycemia Protocol Piperacillin Sod/Tazobactam Sod (Zosyn 2.25 Gm Iv Premix) 2.25 gm in 50 mls @ 100 mls/hr IVPB Q6H [facility]; Protocol Last Admin: 06/17/18 11:01 Dose: 100 mls/hr Insulin Aspart (Novolog) 4 unit SC ACLD [facility] Last Admin: 06/16/18 16:45 Dose: Not Given Insulin Glargine (Lantus) 6 unit SC HS [facility] Last Admin: 06/16/18 22:10 Dose: 6 units Insulin Human Regular (Novolin R) 0 unit SC ACHS [facility]; Protocol Last Admin: 06/17/18 08:24 Dose: 2 units Labetalol HCl (Normodyne) 300 mg PO BID [facility] Last Admin: 06/17/18 09:23 Dose: Not Given Minoxidil (Loniten) 10 mg PO BID [facility] Last Admin: 06/17/18 09:56 Dose: Not Given Pantoprazole Sodium (Protonix Ec Tab) 40 mg PO DAILY [facility] Last Admin: 06/17/18 09:53 Dose: 40 mg Pregabalin (Lyrica) 75 mg PO BID [facility] Last Admin: 06/17/18 09:53 Dose: 75 mg Sevelamer Carbonate (Renvela) 1,600 mg PO TIDCC [facility] Last Admin: 06/17/18 08:25 Dose: 1,600 mg - Labs Labs: 06/17/18 08:11 06/17/18 08:11 PT 12.8 SECONDS (9.7-12.2) H 06/16/18 15:05 INR 1.2 06/16/18 15:05 APTT 33 SECONDS (21-34) 06/16/18 15:05 - Constitutional Appears: Non-toxic, No Acute Distress - Head Exam Head Exam: ATRAUMATIC, NORMAL INSPECTION, NORMOCEPHALIC - Eye Exam Eye Exam: Normal appearance, PERRL - ENT Exam ENT Exam: Mucous Membranes Moist, Normal Exam - Neck Exam Neck Exam: Full ROM, Normal Inspection - Respiratory Exam Respiratory Exam: Clear to Ausculation Bilateral, NORMAL BREATHING PATTERN. absent: Rales, Rhonchi, Wheezes - Cardiovascular Exam Cardiovascular Exam: REGULAR RHYTHM, +S1, +S2 - GI/Abdominal Exam GI & Abdominal Exam: Soft, Normal Bowel Sounds. absent: Distended, Tenderness - Extremities Exam Extremities Exam: Full ROM. absent: Pedal Edema Additional comments: Tinnel sign positive bilateral hands Right arm AV fistula - Neurological Exam Neurological Exam: Alert, Awake, CN II-XII Intact, Oriented x3 - Psychiatric Exam Psychiatric exam: Normal Affect, Normal Mood - Skin Skin Exam: Normal Color, Warm Assessment and Plan - Assessment and Plan (Free Text) Plan: Pneumonia/Bands Bacteremia - CXRay (06/16): Bilateral lower lobe pneumonia, more conspicuous on the right. - Repeated CXRAy 06/17 - pending official results - Bands 23 on admission, no bands identified on am labs - Influenza negative - Blood culture preliminary results positive for Gram + cocci in clusters - S. aureus and coag neg PNA FISH preliminary results positive for Gram + cocci in clusters - Random Vanc - one dose given in ED - ID consult - Dr Keenan help is appreciated - one dose Vanc 1gm STAT. f/u Random Vanc level - Continue Zosyn 2.25mg IV q6h - continue to follow up final bcx results, mycoplasma pneumonia ESRD on HD MWF - Dialysis session today - Continue Sensipar 90mg PO Daily [facility] - Continue Sevelamer 1600mg TIDCC - Dr Velazquez/ Dr Santiago - Nephro consult - follow up recs Paresthesia/Neuropathic pain (Hands, Arm, Neck) - continue Lyrica 75 mg BID - 1x dose Percocet before dialysis due to patient experiencing pain during dialysis - Neurology consult - Dr Maguire help is appreciated Thrombocytopenia - possibly secondary to ESRD - Platelets 91 yesterday- today 86 - Continue to monitor History of Hypertension - current BP meds held this morning due to low bp - Hydralazine given last night - current meds * Labetolol 300 PO twice daily - hold if systolic B/P <100 * Minoxidil 10mg PO BID - hold if systolic B/P less than 100 * Clonidine 0.2mg PO BID - hold if systolic BP is less than 100 History of Type 1 DM - Hemoglobin A1c 11/2017 - 5.9 - Accuchecks // Hypoglycemia Protocol - Renal/ Carb Consistent Diet - contineu ISS- moderate - continue Novolog 4 Units AC, Lantus 6 Units HS History of CVA - Continued Crestor 10mg PO QHS History of GERD - continue Protonix 40mg IVP daily Prophylaxis - Protonix 40mg IVP QD - SCDs - VTE contraindication - due to thrombocytopenia Plan discussed with Dr Kayla Berry, PGY-1 <Hermilo Garza - Last Filed: 06/18/18 08:26> Objective - Vital Signs/Intake and Output Vital Signs (last 24 hours): Temp Pulse Resp BP Pulse Ox 98.0 F 86 20 125/72 97 06/18/18 07:15 06/18/18 07:15 06/18/18 07:15 06/18/18 07:15 06/18/18 07:15 - Medications Medications: Current Medications Acetaminophen (Tylenol 325mg Tab) 650 mg PO Q6 PRN PRN Reason: Fever >100.4 F Albuterol/Ipratropium (Duoneb 3 Mg/0.5 Mg (3 Ml) Ud) 3 ml INH RQ4 [facility] Last Admin: 06/18/18 07:52 Dose: 3 ml Cinacalcet (Sensipar) 90 mg PO DAILY [facility] Last Admin: 06/17/18 09:53 Dose: 90 mg Clonidine HCl (Catapres) 0.2 mg PO BID [facility] Last Admin: 06/17/18 18:04 Dose: Not Given Dextrose (Dextrose 50% Inj) 0 ml IV STAT PRN; Protocol PRN Reason: Hypoglycemia Protocol Dextrose (Glutose 15) 0 gm PO ONCE PRN; Protocol PRN Reason: Hypoglycemia Protocol Glucagon (Glucagen Diagnostic Kit) 0 mg IM STAT PRN; Protocol PRN Reason: Hypoglycemia Protocol Dextrose (Dextrose 5% In Water 1000 Ml) 1,000 mls @ 0 mls/hr IV .Q0M PRN; Protocol PRN Reason: Hypoglycemia Protocol Piperacillin Sod/Tazobactam Sod (Zosyn 2.25 Gm Iv Premix) 2.25 gm in 50 mls @ 100 mls/hr IVPB Q6H [facility]; Protocol Last Admin: 06/18/18 05:30 Dose: 100 mls/hr Insulin Aspart (Novolog) 4 unit SC ACLD [facility] Last Admin: 06/17/18 16:38 Dose: Not Given Insulin Glargine (Lantus) 6 unit SC HS [facility] Last Admin: 06/17/18 22:02 Dose: 6 units Insulin Human Regular (Novolin R) 0 unit SC ACHS [facility]; Protocol Last Admin: 06/17/18 21:56 Dose: Not Given Labetalol HCl (Normodyne) 300 mg PO BID [facility] Last Admin: 06/17/18 18:04 Dose: Not Given Minoxidil (Loniten) 10 mg PO BID [facility] Last Admin: 06/17/18 18:04 Dose: Not Given Pantoprazole Sodium (Protonix Ec Tab) 40 mg PO DAILY [facility] Last Admin: 06/17/18 09:53 Dose: 40 mg Pregabalin (Lyrica) 75 mg PO BID [facility] Last Admin: 06/17/18 18:57 Dose: 75 mg Sevelamer Carbonate (Renvela) 1,600 mg PO TIDCC [facility] Last Admin: 06/17/18 17:35 Dose: Not Given - Labs Labs: 06/18/18 07:23 06/18/18 07:23 PT 12.8 SECONDS (9.7-12.2) H 06/16/18 15:05 INR 1.2 06/16/18 15:05 APTT 33 SECONDS (21-34) 06/16/18 15:05 Attending/Attestation - Attestation I have personally seen and examined this patient.: Yes I have fully participated in the care of the patient.: Yes I have reviewed all pertinent clinical information, including history, physical exam and plan: Yes Notes (Text): seen and examined with the resident. Patient was complaining of hand pain. has it for monthes,h/o 30yrs DM. pain is mostly ulnar distribution. used to feel better when she shake her hand ,but latley nothing helps. Tinel sign positive. occasional forarm paim. Patient was in tears during dialysis yesterday and refuses to go for dilaysis withou additional pain meds due to hand pain. occasional foot pain and leg cramps .Diabetic neuropathy Vs carpel tunnel syndro me We will continue Lyrica 75 bid,percocet before dialysis,neurology consult Blood culture two bottles linda napier,s/p vanco 1grm on admission.Resident spoke to Dr Keenan. we will give vanco 1 gram at dialysis and follow continue amanda d/w resident. I agree with the documentation
--- NOTE | 2018-06-17 11:53 | CARD ---
APPROVED REPORT Date of service: 06/16/2018 EKG Measurement Heart [id number] <Conclusion> Normal sinus rhythm Possible Left atrial enlargement Borderline ECG
[2018-06-17] MEDS: (Novolog) Insulin Aspart, Recombinant 100 u/ml 10 ml vial SC SCH ×2 (12:09→16:38)
[2018-06-17] MEDS ORDERED: Oxycodone/Acetaminophen 5/325 mg Tab PO ONE (14:30)
--- NOTE | 2018-06-17 16:10 | CP.PCM.CON ---
History of Present Illness - History of Present Illness History of Present Illness: Neurology Consultation Note: consult requested by Dr. Campos Ms. Prajapati is a 43-year-old woman with a past medical history of DM1, HTN, ESRD on dialysis MWF, Hx of CVA, depression, who states that she has had bilateral hand pain/paresthesias for the last month and Lyrica is not helping. She currently takes 75 mg BID. Review of Systems - Review of Systems All systems: reviewed and no additional remarkable complaints except Past Patient History - Infectious Disease Hx of Infectious Diseases: None - Past Medical History & Family History Past Medical History?: Yes - Past Social History Smoking Status: Never Smoked - CARDIAC Hx Hypertension: Yes - PULMONARY Hx Chronic Obstructive Pulmonary Disease (COPD): Yes - NEUROLOGICAL Hx Seizures: Yes (2008) Hx Transient Ischemic Attacks (TIA): Yes - HEENT Hx HEENT Problems: Yes Hx Cataracts: Yes (HAD CUATE CATARACT SURGERY) - RENAL Hx Chronic Kidney Disease: Yes Hx Kidney Stones: No - ENDOCRINE/METABOLIC Hx Diabetes Mellitus Type 1: Yes - HEMATOLOGICAL/ONCOLOGICAL Hx Anemia: Yes - INTEGUMENTARY Hx Dermatological Problems: No - MUSCULOSKELETAL/RHEUMATOLOGICAL Hx Fractures: Yes (RT ANKLE) - GASTROINTESTINAL Hx Gastrointestinal Disorders: Yes Hx Gastroesophageal Reflux: Yes Hx Ulcer: Yes - PSYCHIATRIC Hx Anxiety: Yes Hx Depression: Yes Hx Substance Use: No - SURGICAL HISTORY Hx Surgeries: Yes Hx Arteriovenous Shunt: Yes (NON FUNC MITZI, NEW SIDNEY) Hx Cataract Extraction: Yes Hx Eye Surgery: Yes (RETINA RT) Hx Vascular Access Device: Yes (LEFT AV FISTULA) - ANESTHESIA Hx Anesthesia: Yes Hx Anesthesia Reactions: No Hx Malignant Hyperthermia: No Meds Allergies/Adverse Reactions: Allergies Allergy/AdvReac Type Severity Reaction Status Date / Time No Known Allergies Allergy Verified 06/16/18 12:47 - Medications Medications: Current Medications Acetaminophen (Tylenol 325mg Tab) 650 mg PO Q6 PRN PRN Reason: Fever >100.4 F Albuterol/Ipratropium (Duoneb 3 Mg/0.5 Mg (3 Ml) Ud) 3 ml INH RQ4 [facility] Last Admin: 06/17/18 13:52 Dose: Not Given Cinacalcet (Sensipar) 90 mg PO DAILY [facility] Last Admin: 06/17/18 09:53 Dose: 90 mg Clonidine HCl (Catapres) 0.2 mg PO BID [facility] Dextrose (Dextrose 50% Inj) 0 ml IV STAT PRN; Protocol PRN Reason: Hypoglycemia Protocol Dextrose (Glutose 15) 0 gm PO ONCE PRN; Protocol PRN Reason: Hypoglycemia Protocol Glucagon (Glucagen Diagnostic Kit) 0 mg IM STAT PRN; Protocol PRN Reason: Hypoglycemia Protocol Dextrose (Dextrose 5% In Water 1000 Ml) 1,000 mls @ 0 mls/hr IV .Q0M PRN; Protocol PRN Reason: Hypoglycemia Protocol Piperacillin Sod/Tazobactam Sod (Zosyn 2.25 Gm Iv Premix) 2.25 gm in 50 mls @ 100 mls/hr IVPB Q6H [facility]; Protocol Last Admin: 06/17/18 11:01 Dose: 100 mls/hr Vancomycin HCl 1 gm/ Sodium (Chloride) 250 mls @ 166.7 mls/hr IVPB ONCE ONE; Protocol Stop: 06/17/18 17:29 Insulin Aspart (Novolog) 4 unit SC ACLD [facility] Last Admin: 06/17/18 12:09 Dose: Not Given Insulin Glargine (Lantus) 6 unit SC HS [facility] Last Admin: 06/16/18 22:10 Dose: 6 units Insulin Human Regular (Novolin R) 0 unit SC ACHS [facility]; Protocol Last Admin: 06/17/18 12:09 Dose: Not Given Labetalol HCl (Normodyne) 300 mg PO BID [facility] Last Admin: 06/17/18 09:23 Dose: Not Given Minoxidil (Loniten) 10 mg PO BID [facility] Pantoprazole Sodium (Protonix Ec Tab) 40 mg PO DAILY [facility] Last Admin: 06/17/18 09:53 Dose: 40 mg Pregabalin (Lyrica) 75 mg PO BID [facility] Last Admin: 06/17/18 09:53 Dose: 75 mg Sevelamer Carbonate (Renvela) 1,600 mg PO TIDCC [facility] Last Admin: 06/17/18 11:06 Dose: 1,600 mg Physical Exam - Constitutional Appears: Well - Head Exam Head Exam: ATRAUMATIC, NORMAL INSPECTION, NORMOCEPHALIC - Eye Exam Eye Exam: EOMI, Normal appearance, PERRL Pupil Exam: NORMAL ACCOMODATION, PERRL - ENT Exam ENT Exam: Mucous Membranes Moist, Normal Exam - Neck Exam Neck exam: Positive for: Normal Inspection - Respiratory Exam Respiratory Exam: Clear to Auscultation Bilateral, NORMAL BREATHING PATTERN - Cardiovascular Exam Cardiovascular Exam: REGULAR RHYTHM - GI/Abdominal Exam GI & Abdominal Exam: Normal Bowel Sounds, Soft. absent: Tenderness - Extremities Exam Extremities exam: Positive for: normal inspection - Back Exam Back exam: NORMAL INSPECTION - Neurological Exam Neurological exam: Alert, CN II-XII Intact, Normal Gait, Oriented x3, Reflexes Normal Additional comments: Pain in the distribution of the median nerve and positive Tinnel sign. Slight weakness of handgrip worse on the right. - Psychiatric Exam Psychiatric exam: Normal Affect, Normal Mood - Skin Skin Exam: Dry, Intact, Normal Color, Warm Results - Vital Signs Recent Vital Signs: Last Vital Signs Temp 98.2 F 06/17/18 15:00 Pulse 81 06/17/18 15:00 Resp 18 06/17/18 15:00 BP 119/59 L 06/17/18 16:00 Pulse Ox 95 06/17/18 15:00 - Labs Result Diagrams: 06/17/18 08:11 06/17/18 08:11 Labs: Laboratory Results - last 24 hr 06/16/18 06/17/18 06/17/18 20:54 06:27 08:11 WBC 6.5 RBC 3.64 L Hgb 11.2 Hct 33.8 L MCV 92.9 MCH 30.8 MCHC 33.2 RDW 14.0 Plt Count 86 L MPV 12.5 H Neut % (Auto) 76.6 H Lymph % (Auto) 13.7 L Wells % (Auto) 7.8 Eos % (Auto) 1.1 Baso % (Auto) 0.8 Neut # (Auto) 5.0 Lymph # (Auto) 0.9 L Wells # (Auto) 0.5 Eos # (Auto) 0.1 Baso # (Auto) 0.1 Differential Comment Sodium Potassium Chloride Carbon Dioxide Anion Gap BUN Creatinine Est GFR ( Amer) Est GFR (Non-Af Amer) POC Glucose (mg/dL) 128 H 96 Random Glucose Calcium Phosphorus Magnesium Total Bilirubin AST ALT Alkaline Phosphatase Total Protein Albumin Globulin Albumin/Globulin Ratio 06/17/18 06/17/18 08:11 11:26 WBC RBC Hgb Hct MCV MCH MCHC RDW Plt Count MPV Neut % (Auto) Lymph % (Auto) Wells % (Auto) Eos % (Auto) Baso % (Auto) Neut # (Auto) Lymph # (Auto) Wells # (Auto) Eos # (Auto) Baso # (Auto) Differential Comment Sodium 136 Potassium 5.0 Chloride 95 L Carbon Dioxide 27 Anion Gap 19 BUN 64 H Creatinine 9.0 H* Est GFR ( Amer) 6 Est GFR (Non-Af Amer) 5 POC Glucose (mg/dL) 79 Random Glucose 50 L D Calcium 9.9 Phosphorus 6.3 H Magnesium 2.3 Total Bilirubin 0.9 AST 77 H D ALT 27 Alkaline Phosphatase 148 H Total Protein 7.3 Albumin 4.0 Globulin 3.3 Albumin/Globulin Ratio 1.2 Assessment & Plan (1) Bilateral carpal tunnel syndrome Assessment and Plan: I recommend obtaining EMG/NCS as an outpatient. Continue Lyrica at the current dose. Control underlying medical problems. No further inpatient recommendations. Follow up with neurology (Dr. Chávez), as an outpatient for EMG/NCS Thank you for this consultation. Status: Acute
--- NOTE | 2018-06-17 18:51 | RAD ---
Date of service: 06/17/2018 HISTORY: f/u PNA COMPARISON: 06/16/2018. FINDINGS: LUNGS: Interval improvement in multifocal primarily lower lobe infiltrates. PLEURA: No significant pleural effusion identified, no pneumothorax apparent. CARDIOVASCULAR: No atherosclerotic calcification present Normal. OSSEOUS STRUCTURES: No significant abnormalities. VISUALIZED UPPER ABDOMEN: Normal. OTHER FINDINGS: None. IMPRESSION: Improving bilateral alveolar infiltrates.
--- NOTE | 2018-06-17 21:50 | CON ---
DATE: 06/17/2018 ATTENDING PHYSICIAN: Debbi Campos DO. HISTORY OF PRESENT ILLNESS: Ms. Prajapati is a 43-year-old female who is being seen for management of dialysis dependent renal failure. Ms. Prajapati has a history of diabetes, hypertension, on dialysis. During her treatment on 06/16/2018, she left after 45 minutes because of severe bilateral hand pain, the right greater than the left. She came to the emergency room also complaining of chills, and she was subsequently admitted. On 06/16/2018, her white count was 90-100, her hemoglobin was 11.7, hematocrit 35.1, platelet count 91,000, pH was 7.42, pCO2 of 47, pO2 of 33 on the venous blood gas. Sodium 134, potassium 4.9, chloride 90, CO2 of 30, BUN of 68, creatinine 9.5, calcium 96, phosphorus 4.3, magnesium 2.2. Her chest x-ray showed bilateral lower lobe pneumonia. PAST MEDICAL HISTORY: Please see the above. Also, history of depression, CVA involving the right side, bilateral cataracts and diabetic retinopathy. She has been admitted to [facility]. ALLERGIES: SHE HAS NO ALLERGIES. MEDICATIONS: Include albuterol, Sensipar, clonidine, insulin, labetalol, minoxidil, Protonix, Renagel. FAMILY HISTORY: Positive for diabetes and hypertension. SOCIAL HISTORY: Negative for alcohol or drug abuse. She does not smoke. REVIEW OF SYSTEMS: She denied chest pain, cough or hemoptysis. There was no abdominal pain, nausea, vomiting or diarrhea. She complains of dizziness, although she is very vague as to whether or not it is orthostatic. These symptoms have been occurring over the last 24-48 hours. She has bilateral hand pain, questionable paresthesias, apparently gets worse on dialysis, the right greater than the left, and this has been occurring for the last several weeks. She also has intermittent pain in her legs which she cannot give any further information on. PHYSICAL EXAMINATION: GENERAL: She was awake and alert, in no acute distress, sitting up. VITAL SIGNS: Her temperature was 98.4, her pulse was 80, her blood pressure was 102/52. NECK: There was no jugular venous distension at 30 degrees. LUNGS: Clear with diminished sounds at the bases. She also had prolonged inspiration and expiration. HEART: Rhythm was regular with a grade 1 to 2/6 systolic ejection murmur throughout. ABDOMEN: Soft and nontender. EXTREMITIES: The was no CVA tenderness or presacral edema. There was no leg edema. She moved all her extremities. Her right hand was cooler than her left. There were no pulses felt. There was fair strength. Her access was patent in the right arm. IMPRESSION: End-stage renal disease, dialysis dependent; diabetic nephropathy, hypertension, diabetic retinopathy, pneumonia, diabetic neuropathy?, carpal tunnel syndrome. RECOMMENDATIONS: Schedule dialysis today with mild ultrafiltration, obtain EMG, consider pulmonary and neuro evaluation. Thank you for your kind referral. We will continue to follow with you. Leland Shi MD
[2018-06-17] MEDS: (Lantus) Insulin Glargine, Recombinant SC SCH (22:02)
[2018-06-18] MEDS: Albuterol-Ipratrop 3 mg / 0.5 (3 ml) UD INH SCH ×6 (00:30→20:17)
[2018-06-18] MEDS: Piperacill/Tazo 2.25gm in Dex 2.25 GM/50 ML BAG IVPB SCH ×3 (05:30→18:12)
[2018-06-18 07:34] LABS: BASO # 0.1 K/uL (0.0-0.2); EOS # 0.1 K/uL (0.0-0.7); EOS % 2.5 % (0.0-4.0); HEMOGLOBIN 10.3 g/dL (11.0-16.0); LYMPH # 1.1 K/uL (1.0-4.3); LYMPH % 20.2 % (20.0-40.0); MEAN CELL VOLUME 93.4 fL (81.0-99.0); MEAN CORPUSCULAR HEMOGLOBIN 30.5 pg (27.0-31.0); MEAN CORPUSCULAR HGB CONC 32.7 g/dL (33.0-37.0); MEAN PLATELET VOLUME 12.5 fL (7.2-11.7); MONO # 0.7 K/uL (0.0-0.8); MONO % 13.3 % (0.0-10.0); NEUT # 3.4 K/uL (1.8-7.0); RBC 3.38 Mil/uL (3.80-5.20); RED CELL DISTRIBUTION WIDTH 14.3 % (11.5-14.5); WHITE BLOOD COUNT 5.5 K/uL (4.8-10.8)
[2018-06-18 07:47] LABS: ALB/GLOB RATIO 1.2 (1.0-2.1); ALBUMIN 3.8 g/dL (3.5-5.0); CALCIUM 7.7 mg/dl (8.6-10.4)
--- NOTE | 2018-06-18 07:49 | CP.PCM.PN ---
Subjective - Date & Time of Evaluation Date of Evaluation: 06/18/18 Time of Evaluation: 07:46 - Subjective Subjective: feels more sob this am chika does not have discharge tolerated HD yesterday noted BP medicines being held +cough no palpitations no nausea no vomiting no rash no headache no abdominal pain no fever chronic paresthesias Objective - Vital Signs/Intake and Output Vital Signs (last 24 hours): Temp Pulse Resp BP Pulse Ox 97.6 F 83 20 101/55 L 95 06/18/18 00:00 06/18/18 04:00 06/18/18 00:00 06/18/18 00:00 06/18/18 00:00 - Medications Medications: Current Medications Acetaminophen (Tylenol 325mg Tab) 650 mg PO Q6 PRN PRN Reason: Fever >100.4 F Albuterol/Ipratropium (Duoneb 3 Mg/0.5 Mg (3 Ml) Ud) 3 ml INH RQ4 [facility] Last Admin: 06/18/18 04:00 Dose: Not Given Cinacalcet (Sensipar) 90 mg PO DAILY [facility] Last Admin: 06/17/18 09:53 Dose: 90 mg Clonidine HCl (Catapres) 0.2 mg PO BID [facility] Last Admin: 06/17/18 18:04 Dose: Not Given Dextrose (Dextrose 50% Inj) 0 ml IV STAT PRN; Protocol PRN Reason: Hypoglycemia Protocol Dextrose (Glutose 15) 0 gm PO ONCE PRN; Protocol PRN Reason: Hypoglycemia Protocol Glucagon (Glucagen Diagnostic Kit) 0 mg IM STAT PRN; Protocol PRN Reason: Hypoglycemia Protocol Dextrose (Dextrose 5% In Water 1000 Ml) 1,000 mls @ 0 mls/hr IV .Q0M PRN; Protocol PRN Reason: Hypoglycemia Protocol Piperacillin Sod/Tazobactam Sod (Zosyn 2.25 Gm Iv Premix) 2.25 gm in 50 mls @ 100 mls/hr IVPB Q6H [facility]; Protocol Last Admin: 06/18/18 05:30 Dose: 100 mls/hr Insulin Aspart (Novolog) 4 unit SC ACLD [facility] Last Admin: 06/17/18 16:38 Dose: Not Given Insulin Glargine (Lantus) 6 unit SC HS [facility] Last Admin: 06/17/18 22:02 Dose: 6 units Insulin Human Regular (Novolin R) 0 unit SC ACHS [facility]; Protocol Last Admin: 06/17/18 21:56 Dose: Not Given Labetalol HCl (Normodyne) 300 mg PO BID [facility] Last Admin: 06/17/18 18:04 Dose: Not Given Minoxidil (Loniten) 10 mg PO BID [facility] Last Admin: 06/17/18 18:04 Dose: Not Given Pantoprazole Sodium (Protonix Ec Tab) 40 mg PO DAILY [facility] Last Admin: 06/17/18 09:53 Dose: 40 mg Pregabalin (Lyrica) 75 mg PO BID [facility] Last Admin: 06/17/18 18:57 Dose: 75 mg Sevelamer Carbonate (Renvela) 1,600 mg PO TIDCC [facility] Last Admin: 06/17/18 17:35 Dose: Not Given - Labs Labs: 06/18/18 07:23 06/17/18 08:11 PT 12.8 SECONDS (9.7-12.2) H 06/16/18 15:05 INR 1.2 06/16/18 15:05 APTT 33 SECONDS (21-34) 06/16/18 15:05 - Constitutional Appears: Non-toxic, No Acute Distress - Head Exam Head Exam: ATRAUMATIC, NORMAL INSPECTION - Eye Exam Eye Exam: EOMI - ENT Exam ENT Exam: Mucous Membranes Moist - Neck Exam Neck Exam: Full ROM. absent: Lymphadenopathy - Respiratory Exam Respiratory Exam: Decreased Breath Sounds, Rales - GI/Abdominal Exam GI & Abdominal Exam: Soft. absent: Distended, Tenderness - Extremities Exam Extremities Exam: absent: Pedal Edema Assessment and Plan - Assessment and Plan (Free Text) Assessment: dialysis dependent, advised HD today fluid restriction needs ECHO for bacteremia w/u continue AB
[2018-06-18] MEDS: (Novolin R) Insulin Human Regular 100 units/ml vial SC SCH ×4 (08:18→21:44)
[2018-06-18] MEDS: Pantoprazole 40 mg EC Tab PO SCH (09:07)
[2018-06-18] MEDS: Labetalol Hydrochloride 300 mg Tab PO SCH (09:13)
--- NOTE | 2018-06-18 11:17 | CP.PCM.PN ---
<Guerrero Berry - Last Filed: 06/18/18 15:51> Subjective - Date & Time of Evaluation Date of Evaluation: 06/18/18 Time of Evaluation: 09:00 - Subjective Subjective: PGY-[address] Garza service Patient is seen and examined at bedside this morning. Complaints of shortness of breath and feeling tired. Patient states tolerated dialysis but continues to have pain on right extremity and numbness and tingling on bilateral hands. Patient is tolerating diet, patient denies fever, chills, chest pain, abdominal pain, n/v diarrhea or constipation. Patient is tolerating current diet. Objective - Vital Signs/Intake and Output Vital Signs (last 24 hours): Temp Pulse Resp BP Pulse Ox 98.0 F 84 20 125/72 97 06/18/18 07:15 06/18/18 09:00 06/18/18 07:15 06/18/18 07:15 06/18/18 07:15 - Medications Medications: Current Medications Acetaminophen (Tylenol 325mg Tab) 650 mg PO Q6 PRN PRN Reason: Fever >100.4 F Albuterol/Ipratropium (Duoneb 3 Mg/0.5 Mg (3 Ml) Ud) 3 ml INH RQ4 [facility] Last Admin: 06/18/18 07:52 Dose: 3 ml Cinacalcet (Sensipar) 90 mg PO DAILY [facility] Last Admin: 06/18/18 09:12 Dose: 90 mg Clonidine HCl (Catapres) 0.2 mg PO BID [facility] Last Admin: 06/18/18 09:08 Dose: 0.2 mg Dextrose (Dextrose 50% Inj) 0 ml IV STAT PRN; Protocol PRN Reason: Hypoglycemia Protocol Dextrose (Glutose 15) 0 gm PO ONCE PRN; Protocol PRN Reason: Hypoglycemia Protocol Glucagon (Glucagen Diagnostic Kit) 0 mg IM STAT PRN; Protocol PRN Reason: Hypoglycemia Protocol Dextrose (Dextrose 5% In Water 1000 Ml) 1,000 mls @ 0 mls/hr IV .Q0M PRN; Protocol PRN Reason: Hypoglycemia Protocol Piperacillin Sod/Tazobactam Sod (Zosyn 2.25 Gm Iv Premix) 2.25 gm in 50 mls @ 100 mls/hr IVPB Q6H [facility]; Protocol Last Admin: 06/18/18 05:30 Dose: 100 mls/hr Insulin Aspart (Novolog) 4 unit SC [facility]D [facility] Last Admin: 06/17/18 16:38 Dose: Not Given Insulin Glargine (Lantus) 6 unit SC HS [facility] Last Admin: 06/17/18 22:02 Dose: 6 units Insulin Human Regular (Novolin R) 0 unit SC ACHS [facility]; Protocol Last Admin: 06/18/18 08:18 Dose: Not Given Labetalol HCl (Normodyne) 300 mg PO BID [facility] Last Admin: 06/18/18 09:13 Dose: Not Given Minoxidil (Loniten) 10 mg PO BID [facility] Last Admin: 06/17/18 18:04 Dose: Not Given Pantoprazole Sodium (Protonix Ec Tab) 40 mg PO DAILY [facility] Last Admin: 06/18/18 09:07 Dose: 40 mg Pregabalin (Lyrica) 75 mg PO BID [facility] Last Admin: 06/18/18 09:07 Dose: 75 mg Sevelamer Carbonate (Renvela) 1,600 mg PO TIDCC [facility] Last Admin: 06/18/18 08:29 Dose: 1,600 mg - Labs Labs: 06/18/18 07:23 06/18/18 07:23 PT 12.8 SECONDS (9.7-12.2) H 06/16/18 15:05 INR 1.2 06/16/18 15:05 APTT 33 SECONDS (21-34) 06/16/18 15:05 - Constitutional Appears: Non-toxic, No Acute Distress - Head Exam Head Exam: ATRAUMATIC, NORMOCEPHALIC - Eye Exam Eye Exam: Conjunctival injection, EOMI, PERRL Additional comments: pterygium noticed on medial side of right conjuctiva mild green discharge from medial side of right eye - ENT Exam ENT Exam: Mucous Membranes Moist, Normal Exam - Neck Exam Neck Exam: Full ROM, Normal Inspection - Respiratory Exam Respiratory Exam: Decreased Breath Sounds (right and left lower lobes), Clear to Ausculation Bilateral, NORMAL BREATHING PATTERN - Cardiovascular Exam Cardiovascular Exam: REGULAR RHYTHM, +S1, +S2 - GI/Abdominal Exam GI & Abdominal Exam: Soft, Normal Bowel Sounds. absent: Distended, Tenderness - Extremities Exam Extremities Exam: Full ROM, Normal Inspection. absent: Pedal Edema, Tenderness - Back Exam Back Exam: NORMAL INSPECTION - Neurological Exam Neurological Exam: Alert, Awake, Oriented x3 - Psychiatric Exam Psychiatric exam: Anxious, Normal Affect, Normal Mood - Skin Skin Exam: Dry, Normal Color, Warm Additional comments: right UE AV fistula palpable thrill left UE healed scar of what appears an old fistula Assessment and Plan - Assessment and Plan (Free Text) Plan: Pneumonia/Bands Gram + cocci in clusters Bacteremia - CXRay (06/16): Bilateral lower lobe pneumonia, more conspicuous on the right. - Repeated CXRAy 06/17 -Improving bilateral alveolar infiltrates - No leukocytosis today (5.5), no bands identified, afebrile - Blood culture preliminary results positive for Gram + cocci in clusters - S. aureus and coag neg PNA FISH preliminary results positive for Gram + cocci in clusters - Echo ordered due to bacteremia work up - f/u results - Continue Zosyn 2.25mg IV q6h - ID consult - Dr Keenan - Patient need additional dose of vanc after dialysis - Random Vanc yesterday less than 5, this am 15.5 - follow up ID recs - Duonebs Q4H for shortness of breath associated with PNA ESRD on HD MWF - Dialysis session today - Continue Sensipar 90mg PO Daily [facility] - Continue Sevelamer 1600mg [facility] - Dr Santiago - Nephro consult - follow up recs - fluid restriction, echo for bacteremia work up, dialysis today Paresthesia/Neuropathic pain (Hands, Arm, Neck) - continue Lyrica 75 mg BID - Neurology consult - Dr Maguire help is appreciated - possible carpal tunnel syndrome, recommends outpatient EMG/NCS testing, continue Lyrica - Percocet x 1 dose given before dialysis for right arm pain during dialysis session Erythema right eye, s/p pterygium removal surgery 2017 - Ofloxacin Opht drops - 1 drop Q4H for two days duration prophylactic for conjuctivitis Thrombocytopenia - possibly secondary to ESRD - Platelets levels stable - Continue to monitor History of Hypertension - current BP meds held * Labetolol 300 PO twice daily * Minoxidil 10mg PO BID * Clonidine 0.2mg PO BID - current BP reads 125/75 at this time - continue to monitor History of Type 1 DM - Hemoglobin A1c 11/2017 - 5.9 - Accuchecks // Hypoglycemia Protocol - Renal/ Carb Consistent Diet - continue ISS- moderate - continue Novolog 4 Units AC, Lantus 6 Units HS History of CVA - Continued Crestor 10mg PO QHS History of GERD - continue Protonix 40mg IVP daily - patient complaining of nausea in pm - one dose of zofran 4mg IVP given Prophylaxis - Protonix 40mg IVP QD - SCDs - VTE contraindication - due to thrombocytopenia Plan discussed with Dr Kayla Berry, PGY-1 <Hermilo Garza - Last Filed: 06/18/18 18:45> Objective - Vital Signs/Intake and Output Vital Signs (last 24 hours): Temp Pulse Resp BP Pulse Ox 98 F 81 20 112/53 L 98 06/18/18 15:35 06/18/18 15:35 06/18/18 15:35 06/18/18 16:05 06/18/18 15:35 - Medications Medications: Current Medications Acetaminophen (Tylenol 325mg Tab) 650 mg PO Q6 PRN PRN Reason: Fever >100.4 F Albuterol/Ipratropium (Duoneb 3 Mg/0.5 Mg (3 Ml) Ud) 3 ml INH RQ4 [facility] Last Admin: 06/18/18 12:57 Dose: Not Given Cinacalcet (Sensipar) 90 mg PO DAILY [facility] Last Admin: 06/18/18 09:12 Dose: 90 mg Clonidine HCl (Catapres) 0.2 mg PO BID [facility] Last Admin: 06/18/18 09:08 Dose: 0.2 mg Dextrose (Dextrose 50% Inj) 0 ml IV STAT PRN; Protocol PRN Reason: Hypoglycemia Protocol Dextrose (Glutose 15) 0 gm PO ONCE PRN; Protocol PRN Reason: Hypoglycemia Protocol Glucagon (Glucagen Diagnostic Kit) 0 mg IM STAT PRN; Protocol PRN Reason: Hypoglycemia Protocol Dextrose (Dextrose 5% In Water 1000 Ml) 1,000 mls @ 0 mls/hr IV .Q0M [facility]N; Protocol PRN Reason: Hypoglycemia Protocol Piperacillin Sod/Tazobactam Sod (Zosyn 2.25 Gm Iv Premix) 2.25 gm in 50 mls @ 100 mls/hr IVPB Q6H [facility]; Protocol Last Admin: 06/18/18 12:05 Dose: 100 mls/hr Insulin Aspart (Novolog) 4 unit SC ACLD [facility] Last Admin: 06/18/18 11:58 Dose: Not Given Insulin Glargine (Lantus) 6 unit SC HS [facility] Last Admin: 06/17/18 22:02 Dose: 6 units Insulin Human Regular (Novolin R) 0 unit SC ACHS [facility]; Protocol Last Admin: 06/18/18 11:59 Dose: Not Given Labetalol HCl (Normodyne) 300 mg PO BID [facility] Last Admin: 06/18/18 09:13 Dose: Not Given Minoxidil (Loniten) 10 mg PO BID [facility] Last Admin: 06/18/18 09:10 Dose: Not Given Ofloxacin (Ocuflox Ophth 0.3%) 1 drop OD Q4H [facility] Stop: 06/20/18 11:30 Last Admin: 06/18/18 14:07 Dose: 1 applic Pantoprazole Sodium (Protonix Ec Tab) 40 mg PO DAILY [facility] Last Admin: 06/18/18 09:07 Dose: 40 mg Pregabalin (Lyrica) 75 mg PO BID [facility] Last Admin: 06/18/18 09:07 Dose: 75 mg Sevelamer Carbonate (Renvela) 1,600 mg PO TIDCC [facility] Last Admin: 06/18/18 12:05 Dose: 1,600 mg - Labs Labs: 06/18/18 07:23 06/18/18 07:23 PT 12.8 SECONDS (9.7-12.2) H 06/16/18 15:05 INR 1.2 06/16/18 15:05 APTT 33 SECONDS (21-34) 06/16/18 15:05 Attending/Attestation - Attestation I have personally seen and examined this patient.: Yes I have fully participated in the care of the patient.: Yes I have reviewed all pertinent clinical information, including history, physical exam and plan: Yes Notes (Text): seen and examined Staph bacteremia,ESRD on HD,continue vanco as per DR Keenan
[2018-06-18] MEDS: (Novolog) Insulin Aspart, Recombinant 100 u/ml 10 ml vial SC SCH ×2 (11:58→17:10)
--- NOTE | 2018-06-18 13:50 | CARD ---
APPROVED REPORT Date of service: 06/18/2018 EXAM: Two-dimensional and M-mode echocardiogram with Doppler and color Doppler. INDICATION Chest Pain BACTEREMIA, FEVER, HEART FAILURE, DIALYSIS RISK FACTORS Hypertension Diabetes 2D DIMENSIONS IVSd1.1 (0.7-1.1cm)LVDd3.7 (3.9-5.9cm) PWd1.3 (0.7-1.1cm)LA Theegu44 (18-58mL) LVDs1.7 (2.5-4.0cm)FS (%) 53.7 % LVEF (%)85.2 (>50%)LVEF ([facility]'s)76.09 % IVC0.00 cm M-Mode DIMENSIONS RVDd1.64 (2.1-3.2cm)Left Atrium (MM)3.96 (2.5-4.0cm) IVSd1.02 (0.7-1.1cm)Aortic Root2.31 (2.2-3.7cm) LVDd4.65 (4.0-5.6cm)Aortic Cusp Exc.1.62 (1.5-2.0cm) PWd0.99 (0.7-1.1cm)FS (%) 43 % LVDs2.65 (2.0-3.8cm)LVEF (%)74 (>50%) Mitral Valve MV E Zevlarfj302.8cm/sMV A Uunkwrow19.6cm/sE/A ratio1.6 [id number] cm/s TDI Lateral E' Peak V10.93cm/sMedial E' Peak V6.03cm/sE/Lateral E'13.5 E/Medial E'24.5 Tricuspid Valve TR Peak [id number]/sTR Peak Gr.[id number] LEFT VENTRICLE The left ventricle is normal size. There is mild concentric left ventricular hypertrophy. The Ejection Fraction is >70%. There is normal LV segmental wall motion. The left ventricular diastolic function is normal. RIGHT VENTRICLE The right ventricle is normal size. The right ventricular systolic function is normal. ATRIA The left atrium is mildly dilated. The right atrium size is normal. The interatrial septum is intact with no evidence for an atrial septal defect. AORTIC VALVE The aortic valve is trileaflet. No aortic regurgitation is present. MITRAL VALVE Mitral annular calcification is mild. Mitral regurgitation is trace. TRICUSPID VALVE The tricuspid valve is normal in structure. There is mild tricuspid regurgitation. Right ventricular systolic pressure is estimated at 46 mmHg. There is mild-moderate pulmonary hypertension. PULMONIC VALVE The pulmonary valve is normal in structure. There is trace pulmonic valvular regurgitation. GREAT VESSELS The aortic root is normal size. The IVC is normal in size and collapses >50% with inspiration. PERICARDIAL EFFUSION small posterior pericardial effusion noted. <Conclusion> The left ventricle is normal size. There is mild concentric left ventricular hypertrophy. The Ejection Fraction is >70%. The left ventricular diastolic function is normal. The left atrium is mildly dilated. There is mild tricuspid regurgitation. Right ventricular systolic pressure is estimated at 46 mmHg. There is mild-moderate pulmonary hypertension. The aortic root is normal size. small posterior pericardial effusion noted.
[2018-06-18] MEDS: Ofloxacin 0.3% Ophth Soln OD SCH ×3 (14:07→19:00)
[2018-06-18] MEDS ORDERED: Oxycodone/Acetaminophen 5/325 mg Tab PO ONE (14:34)
--- NOTE | 2018-06-18 16:44 | CP.PCM.CON ---
History of Present Illness - History of Present Illness History of Present Illness: History of Present Illness - History of Present Illness History of Present Illness: 43 year old female with past medical history as noted below presented with body aches and fever She states yesterday she felt like she had chills at home. Referred for ID eval for + Blood cultures Started on empiric IV antibiotics Past Medical History: DM1, HTN, ESRD on dialysis MWF Hx of CVA, depression Past Surgical History: B/l cataracts, R. retina surgery, AV shunt in R. arm, Embolectomy from R. LE, AV fistula left UE collapsed. Family History: Mother - DM/ESRD; Dad - Heart problems, prostate cancer Sensipar 90 mg daily, Renvela 3 tabs TID, Nexium 40 mg daily Allergies: NKDA Social History: neg Present on Admission - Present on Admission Any Indicators Present on Admission: No Review of Systems - Constitutional Constitutional: Chills. Headache - Cardiovascular Cardiovascular: absent: Chest Pain, Dyspnea, Palpitations - Respiratory Respiratory: absent: Cough, Dyspnea - Gastrointestinal Gastrointestinal: absent: Constipation, Diarrhea, Nausea, Vomiting - Musculoskeletal Additional comments: bilateral hand numbness and burning pain - Neurological Neurological: absent: Dizziness, Headaches Review of Systems - Review of Systems All systems: reviewed and no additional remarkable complaints except - Constitutional Constitutional: Anorexia, Chills, Fever, Malaise - EENT Eyes: absent: As Per HPI, Blind Spots, Blurred Vision, Change in Vision, Decreased Night Vision, Diplopia, Discharge, Dry Eye, Exophthalmos, Floaters, Irritation, Itchy Eyes, Loss of Peripheral Vision, Pain, Photophobia, Requires Corrective Lenses, Sees Flashes, Spots in Vision, Tunnel Vision, Other Visual Disturbances, Loss of Vision, Other Ears: absent: As Per HPI, Decreased Hearing, Ear Discharge, Ear Pain, Tinnitus, Abnormal Hearing, Disequilibrium, Dizziness, Other Nose/Mouth/Throat: absent: As Per HPI, Epistaxis, Nasal Congestion, Nasal Discha rge, Nasal Obstruction, Nasal Trauma, Nose Pain, Post Nasal Drip, Sinus Pain, Sinus Pressure, Bleeding Gums, Change in Voice, Dental Pain, Dry Mouth, Dysphagia, Halitosis, Hoarsness, Lip Swelling, Mouth Lesions, Mouth Pain, Odynophagia, Sore Throat, Throat Swelling, Tongue Swelling, Facial Pain, Neck Pain, Neck Mass, Other - Breasts Breasts: absent: As Per HPI, Change in Shape, Mass, Pain, Nipple Discharge, Nipple Inversion, Skin Changes, Swelling, Other - Cardiovascular Cardiovascular: absent: As Per HPI, Acrocyanosis, Chest Pain, Chest Pain at Rest, Chest Pain with Activity, Claudication, Diaphoresis, Dyspnea, Dyspnea on Exertion, Edema, Irregular Heart Rhythm, Pain Radiating to Arm/Neck/Jaw, Leg Edema, Leg Ulcers, Lightheadedness, Orthopnea, Palpitations, Paroxysmal Nocturnal Dyspnea, Pedal Edema, Radiating Pain, Rapid Heart Rate, Slow Heart Rate, Syncope, Other - Respiratory Respiratory: absent: As Per HPI, Cough, Dyspnea, Hemoptysis, Dyspnea on Exertion, Wheezing, Snoring, Stridor, Pain on Inspiration, Chest Congestion, Excessive Mucous Production, Change in Mucous Color, Pain with Coughing, Other - Gastrointestinal Gastrointestinal: absent: As Per HPI, Abdominal Pain, Belching, Bloating, Change in Bowel Habits, Change in Stool Character, Coffee Ground Emesis, Constipation, Cramping, Diarrhea, Dyspepsia, Dysphagia, Early Satiety, Excessive Flatus, Fecal Incontinence, Heartburn, Hematemesis, Hematochezia, Loose Stools, Melena, Nausea, Odynophagia, Temesmus, Vomiting, Other - Genitourinary Genitourinary: absent: As Per HPI, Change in Urinary Stream, Difficulty Urinating, Dysuria, Flank Pain, Hematuria, Pyuria, Nocturia, Urinary Incontinence, Urinary Frequency, Urinary Hesitance, Urinary Urgency, Voiding Freq/Small Amts, Freq UTI, Hx Renal/Bladder Calculi, Hx /Renal Surgery, Bladder Distension, Other - Reproductive: Female Reproductive:Female: absent: As Per HPI, Amenorrhea, Amenorrhea/ Control, Currently Menstual, Cycle <21 Days, Cycle >35 Days, Cycle Variable, Menses 1-7 Days, Menses >/= 8 Days, Menses Variable, Cycle > 4 Weeks Between, No Menses for 6 Months, Heavy Menses, Light Menses, Normal Menses, Spotting Between Cycles, S/P Hysterectomy, Menopausal, Post Menopausal, Premenarche, Abnormal Vaginal Bleeding, Dysmenorrhea, Dyspareunia, Genital Lesions, Genital Pruritis, Pelvic Pain, Prolapse Symptoms, Sexual Dysfunction, Vaginal Discharge, Vaginal Dryness, Vaginal Odor, Vaginal Pruritis, Other - Menstruation Menstruation: absent: As Per HPI, Amenorrhea, Amenorrhea/ Control, Currently Menstual, Cycle <21 Days, Cycle >35 Days, Cycle Variable, Menses 1-7 Days, Menses >/= 8 Days, Menses Variable, Cycle > 4 Weeks Between, No Menses for 6 Months, Heavy Menses, Light Menses, Normal Menses, Spotting Between Cycles, S/P Hysterectomy, Menopausal, Post Menopausal, Premenarche, Abnormal Vaginal Bleeding, Dysmenorrhea, Other - Musculoskeletal Musculoskeletal: absent: As Per HPI, Abnormal Gait, Arthralgias, Atrophy, Back Pain, Deformity, Joint Swelling, Limited Range of Motion, Loss of Height, Muscle Cramps, Muscle Weakness, Myalgias, Neck Pain, Numbness, Radiating Pain into Limb, Stiffness, Tingling, Other - Integumentary Integumentary: absent: As Per HPI, Acne, Alopecia, Bleeding Lesions, Change in Hair, Change in Nails, Change in Pigmentation, Changing Lesions, Dry Skin, Erythema, Furuncle, Hirsutism, Lesions, New Lesions, Non-Healing Lesions, Photosensitivity, Pruritus, Rash, Skin Pain, Skin Ulcer, Sores, Striae, Swelling, Unusual Bruising, Wounds, Jaundice, Other - Neurological Neurological: absent: As Per HPI, Abnormal Gait, Abnormal Hearing, Abnormal Movements, Abnormal Speech, Behavioral Changes, Burning Sensations, Confusion, Convulsions, Disequilibrium, Dizziness, Numbness, Focal Weakness, Frequent Falls, Headaches, Lack of Coordination, Loss of Vision, Memory Loss, Paresthesias, Radicular Pain, Restless Legs, Sensory Deficit, Syncope, Tingling, Tremor, Vertigo, Weakness, Other Visual Disturbances, Other - Psychiatric Psychiatric: absent: As Per HPI, Abnormal Sleep Pattern, Anhedonia, Anxiety, Auditory Hallucinations, Behavioral Changes, Change in Appetite, Change in Libido, Confusion, Depression, Difficulty Concentrating, Hallucinations, Homicidal Ideation, Hopelessness, Irritability, Memory Loss, Mood Swings, Panic Attacks, Paranoia, Suicidal Ideation, Visual Hallucinations, Tactile Hallucinations, Other - Endocrine Endocrine: absent: As Per HPI, Change in Body Appearance, Change in Libido, Cold Intolorance, Deepening of Voice, Excessive Sweating, Fatigue, Flushing, Heat Intolorance, Increase in Ring/Shoe/Hat Size, Palpitations, Polydipsia, Polyphagia, Polyuria, Other - Hematologic/Lymphatic Hematologic: absent: As Per HPI, Easy Bleeding, Easy Bruising, Lymphadenopathy, Other Past Patient History - Infectious Disease Hx of Infectious Diseases: None - Past Medical History & Family History Past Medical History?: Yes - Past Social History Smoking Status: Never Smoked - CARDIAC Hx Hypertension: Yes - PULMONARY Hx Chronic Obstructive Pulmonary Disease (COPD): Yes - NEUROLOGICAL Hx Seizures: Yes (2008) Hx Transient Ischemic Attacks (TIA): Yes - HEENT Hx HEENT Problems: Yes Hx Cataracts: Yes (HAD CUATE CATARACT SURGERY) - RENAL Hx Chronic Kidney Disease: Yes Hx Kidney Stones: No - ENDOCRINE/METABOLIC Hx Diabetes Mellitus Type 1: Yes - HEMATOLOGICAL/ONCOLOGICAL Hx Anemia: Yes - INTEGUMENTARY Hx Dermatological Problems: No - MUSCULOSKELETAL/RHEUMATOLOGICAL Hx Fractures: Yes (RT ANKLE) - GASTROINTESTINAL Hx Gastrointestinal Disorders: Yes Hx Gastroesophageal Reflux: Yes Hx Ulcer: Yes - PSYCHIATRIC Hx Anxiety: Yes Hx Depression: Yes Hx Substance Use: No - SURGICAL HISTORY Hx Surgeries: Yes Hx Arteriovenous Shunt: Yes (NON FUNC MITZI, [place]) Hx Cataract Extraction: Yes Hx Eye Surgery: Yes (RETINA RT) Hx Vascular Access Device: Yes (LEFT AV FISTULA) - ANESTHESIA Hx Anesthesia: Yes Hx Anesthesia Reactions: No Hx Malignant Hyperthermia: No Meds Allergies/Adverse Reactions: Allergies Allergy/AdvReac Type Severity Reaction Status Date / Time No Known Allergies Allergy Verified 06/16/18 12:47 - Medications Medications: Current Medications Acetaminophen (Tylenol 325mg Tab) 650 mg PO Q6 PRN PRN Reason: Fever >100.4 F Albuterol/Ipratropium (Duoneb 3 Mg/0.5 Mg (3 Ml) Ud) 3 ml INH RQ4 [facility] Last Admin: 06/18/18 16:39 Dose: Not Given Cinacalcet (Sensipar) 90 mg PO DAILY [facility] Last Admin: 06/18/18 09:12 Dose: 90 mg Clonidine HCl (Catapres) 0.2 mg PO BID [facility] Last Admin: 06/18/18 09:08 Dose: 0.2 mg Dextrose (Dextrose 50% Inj) 0 ml IV STAT PRN; Protocol PRN Reason: Hypoglycemia Protocol Dextrose (Glutose 15) 0 gm PO ONCE PRN; Protocol PRN Reason: Hypoglycemia Protocol Glucagon (Glucagen Diagnostic Kit) 0 mg IM STAT PRN; Protocol PRN Reason: Hypoglycemia Protocol Dextrose (Dextrose 5% In Water 1000 Ml) 1,000 mls @ 0 mls/hr IV .Q0M PRN; Protocol PRN Reason: Hypoglycemia Protocol Piperacillin Sod/Tazobactam Sod (Zosyn 2.25 Gm Iv Premix) 2.25 gm in 50 mls @ 100 mls/hr IVPB Q6H [facility]; Protocol Last Admin: 06/18/18 12:05 Dose: 100 mls/hr Insulin Aspart (Novolog) 4 unit SC ACLD [facility] Last Admin: 06/18/18 11:58 Dose: Not Given Insulin Glargine (Lantus) 6 unit SC HS [facility] Last Admin: 06/17/18 22:02 Dose: 6 units Insulin Human Regular (Novolin R) 0 unit SC ACHS [facility]; Protocol Last Admin: 06/18/18 11:59 Dose: Not Given Labetalol HCl (Normodyne) 300 mg PO BID [facility] Last Admin: 06/18/18 09:13 Dose: Not Given Minoxidil (Loniten) 10 mg PO BID [facility] Last Admin: 06/18/18 09:10 Dose: Not Given Ofloxacin (Ocuflox Ophth 0.3%) 1 drop OD Q4H [facility] Stop: 06/20/18 11:30 Last Admin: 06/18/18 14:07 Dose: 1 applic Pantoprazole Sodium (Protonix Ec Tab) 40 mg PO DAILY [facility] Last Admin: 06/18/18 09:07 Dose: 40 mg Pregabalin (Lyrica) 75 mg PO BID [facility] Last Admin: 06/18/18 09:07 Dose: 75 mg Sevelamer Carbonate (Renvela) 1,600 mg PO TIDCC [facility] Last Admin: 06/18/18 12:05 Dose: 1,600 mg Physical Exam - Constitutional Appears: Non-toxic, No Acute Distress, Chronically Ill - Head Exam Head Exam: ATRAUMATIC, NORMOCEPHALIC - Eye Exam Eye Exam: PERRL. absent: Scleral icterus Pupil Exam: NORMAL ACCOMODATION - ENT Exam ENT Exam: Mucous Membranes Dry, Normal External Ear Exam - Neck Exam Neck exam: Negative for: Lymphadenopathy - Respiratory Exam Respiratory Exam: Decreased Breath Sounds, Prolonged Expiratory Phase, Rhonchi - Cardiovascular Exam Cardiovascular Exam: REGULAR RHYTHM, +S1, +S2 - GI/Abdominal Exam GI & Abdominal Exam: Diminished Bowel Sounds, Soft. absent: Tenderness - Rectal Exam Rectal Exam: Deferred - Exam Exam: NORMAL INSPECTION - Extremities Exam Extremities exam: Negative for: pedal edema - Back Exam Back exam: absent: CVA tenderness (L), CVA tenderness (R) - Neurological Exam Neurological exam: Alert, CN II-XII Intact, Oriented x3, Reflexes Normal - Psychiatric Exam Psychiatric exam: Depressed - Skin Skin Exam: Dry, Urticaria Results - Vital Signs Recent Vital Signs: Last Vital Signs Temp 98 F 06/18/18 15:35 Pulse 81 06/18/18 15:35 Resp 20 06/18/18 15:35 BP 112/53 L 06/18/18 16:05 Pulse Ox 98 06/18/18 15:35 - Labs Result Diagrams: 06/22/18 08:12 06/22/18 08:12 Labs: Laboratory Results - last 24 hr 06/17/18 06/17/18 06/18/18 16:03 21:21 07:23 WBC 5.5 RBC 3.38 L Hgb 10.3 L Hct 31.6 L MCV 93.4 MCH 30.5 MCHC 32.7 L RDW 14.3 Plt Count 79 L MPV 12.5 H Neut % (Auto) 63.0 Lymph % (Auto) 20.2 Lea % (Auto) 13.3 H Eos % (Auto) 2.5 Baso % (Auto) 1.0 Neut # (Auto) 3.4 Lymph # (Auto) 1.1 Lea # (Auto) 0.7 Eos # (Auto) 0.1 Baso # (Auto) 0.1 Sodium Potassium Chloride Carbon Dioxide Anion Gap BUN Creatinine Est GFR ( Amer) Est GFR (Non-Af Amer) POC Glucose (mg/dL) 174 H Random Glucose Calcium Phosphorus Magnesium Total Bilirubin AST ALT Alkaline Phosphatase Total Protein Albumin Globulin Albumin/Globulin Ratio Random Vancomycin < 5.0 06/18/18 06/18/18 07:23 07:23 WBC RBC Hgb Hct MCV MCH MCHC RDW Plt Count MPV Neut % (Auto) Lymph % (Auto) Lea % (Auto) Eos % (Auto) Baso % (Auto) Neut # (Auto) Lymph # (Auto) Lea # (Auto) Eos # (Auto) Baso # (Auto) Sodium 136 Potassium 4.4 Chloride 97 L Carbon Dioxide 27 Anion Gap 16 BUN 32 H Creatinine 5.4 H Est GFR ( Amer) 11 Est GFR (Non-Af Amer) 9 POC Glucose (mg/dL) Random Glucose 115 H D Calcium 7.7 L Phosphorus 4.0 Magnesium 2.2 Total Bilirubin 1.2 AST 64 H ALT 39 Alkaline Phosphatase 212 H D Total Protein 7.0 Albumin 3.8 Globulin 3.2 Albumin/Globulin Ratio 1.2 Random Vancomycin 15.1 Assessment & Plan (1) ESRD (end stage renal disease) on dialysis Status: Acute (2) Bacteremia due to Gram-positive bacteria Status: Acute - Assessment and Plan (Free Text) Assessment: bilateral pneumonia with bacteremia if bacteremia persists consider endocarditis as possible source with embolic infiltrates ? await ID of organism cont empiric IV antibiotics
[2018-06-18] MEDS: (Lantus) Insulin Glargine, Recombinant SC SCH (21:42)
[2018-06-19] MEDS: Albuterol-Ipratrop 3 mg / 0.5 (3 ml) UD INH SCH ×6 (00:10→20:18)
[2018-06-19] MEDS: Ofloxacin 0.3% Ophth Soln OD SCH ×7 (00:32→23:55)
[2018-06-19] MEDS: Piperacill/Tazo 2.25gm in Dex 2.25 GM/50 ML BAG IVPB SCH ×5 (05:10→23:55)
[2018-06-19 07:19] LABS: BASO % 0.8 % (0.0-2.0); EOS # 0.1 K/uL (0.0-0.7); HEMOGLOBIN 10.1 g/dL (11.0-16.0); LYMPH # 1.1 K/uL (1.0-4.3); MEAN CELL VOLUME 92.8 fL (81.0-99.0); MEAN CORPUSCULAR HEMOGLOBIN 30.7 pg (27.0-31.0); MEAN CORPUSCULAR HGB CONC 33.1 g/dL (33.0-37.0); MEAN PLATELET VOLUME 11.9 fL (7.2-11.7); MONO # 0.8 K/uL (0.0-0.8); MONO % 14.7 % (0.0-10.0); NEUT # 3.2 K/uL (1.8-7.0); NEUT % 61.5 % (50.0-75.0); NRBC % 0.1 % (0.0-2.0); RBC 3.29 Mil/uL (3.80-5.20); RED CELL DISTRIBUTION WIDTH 14.4 % (11.5-14.5); WHITE BLOOD COUNT 5.2 K/uL (4.8-10.8)
[2018-06-19 07:27] LABS: ALB/GLOB RATIO 1.3 (1.0-2.1); ALBUMIN 3.8 g/dL (3.5-5.0); CALCIUM 8.3 mg/dl (8.6-10.4)
[2018-06-19] MEDS: (Novolin R) Insulin Human Regular 100 units/ml vial SC SCH ×4 (07:37→21:58)
--- NOTE | 2018-06-19 09:15 | CP.PCM.PN ---
<Guerrero Berry - Last Filed: 06/19/18 17:55> Subjective - Date & Time of Evaluation Date of Evaluation: 06/19/18 Time of Evaluation: 12:52 - Subjective Subjective: PGY-[address] Garza service Patient is seen and examined at bedside. Patient states feeling "so-so", states pain in arms is improving, feeling tired mostly when getting up from bed to bathroom, otherwise feels well when resting in bed. Denies fever, chills, chest pain, shortness of breath, no new episode of nausea or vomiting, denies abdominal pain, states being constipated but does not want to use the bathroom since the bathroom is not clean. denies diarrhea. Patient is tolerating diet. tolerated dialysis yesterday. Objective - Vital Signs/Intake and Output Vital Signs (last 24 hours): Temp Pulse Resp BP Pulse Ox 98.9 F 88 20 118/62 95 06/19/18 04:10 06/19/18 07:36 06/19/18 04:10 06/19/18 04:10 06/19/18 04:10 - Medications Medications: Current Medications Acetaminophen (Tylenol 325mg Tab) 650 mg PO Q6 PRN PRN Reason: Fever >100.4 F Albuterol/Ipratropium (Duoneb 3 Mg/0.5 Mg (3 Ml) Ud) 3 ml INH RQ4 [facility] Last Admin: 06/19/18 04:00 Dose: Not Given Cinacalcet (Sensipar) 90 mg PO DAILY [facility] Last Admin: 06/18/18 09:12 Dose: 90 mg Clonidine HCl (Catapres) 0.2 mg PO BID [facility] Last Admin: 06/18/18 09:08 Dose: 0.2 mg Dextrose (Dextrose 50% Inj) 0 ml IV STAT PRN; Protocol PRN Reason: Hypoglycemia Protocol Dextrose (Glutose 15) 0 gm PO ONCE PRN; Protocol PRN Reason: Hypoglycemia Protocol Glucagon (Glucagen Diagnostic Kit) 0 mg IM STAT PRN; Protocol PRN Reason: Hypoglycemia Protocol Dextrose (Dextrose 5% In Water 1000 Ml) 1,000 mls @ 0 mls/hr IV .Q0M PRN; Protocol PRN Reason: Hypoglycemia Protocol Piperacillin Sod/Tazobactam Sod (Zosyn 2.25 Gm Iv Premix) 2.25 gm in 50 mls @ 100 mls/hr IVPB Q6H [facility]; Protocol Last Admin: 06/19/18 05:10 Dose: 100 mls/hr Vancomycin HCl 1 gm/ Sodium (Chloride) 250 mls @ 166.7 mls/hr IVPB MWF [facility]; Protocol Insulin Aspart (Novolog) 4 unit SC ACLD [facility] Last Admin: 06/18/18 17:10 Dose: Not Given Insulin Glargine (Lantus) 6 unit SC HS [facility] Last Admin: 06/18/18 21:42 Dose: 6 units Insulin Human Regular (Novolin R) 0 unit SC ACHS [facility]; Protocol Last Admin: 06/19/18 07:37 Dose: Not Given Labetalol HCl (Normodyne) 300 mg PO BID [facility] Last Admin: 06/18/18 09:13 Dose: Not Given Minoxidil (Loniten) 10 mg PO BID [facility] Last Admin: 06/18/18 09:10 Dose: Not Given Ofloxacin (Ocuflox Ophth 0.3%) 1 drop OD Q4H [facility] Stop: 06/20/18 11:30 Last Admin: 06/19/18 03:30 Dose: Not Given Pantoprazole Sodium (Protonix Ec Tab) 40 mg PO DAILY [facility] Last Admin: 06/18/18 09:07 Dose: 40 mg Pregabalin (Lyrica) 75 mg PO BID [facility] Last Admin: 06/18/18 19:00 Dose: 75 mg Sevelamer Carbonate (Renvela) 1,600 mg PO TIDCC [facility] Last Admin: 06/18/18 17:11 Dose: Not Given - Labs Labs: 06/19/18 06:47 06/19/18 06:47 PT 12.8 SECONDS (9.7-12.2) H 06/16/18 15:05 INR 1.2 06/16/18 15:05 APTT 33 SECONDS (21-34) 06/16/18 15:05 - Constitutional Appears: Non-toxic, No Acute Distress - Head Exam Head Exam: ATRAUMATIC, NORMAL INSPECTION, NORMOCEPHALIC - Eye Exam Eye Exam: EOMI, Normal appearance - ENT Exam ENT Exam: Mucous Membranes Moist, Normal Exam - Respiratory Exam Respiratory Exam: Clear to Ausculation Bilateral, NORMAL BREATHING PATTERN. absent: Rales, Rhonchi, Wheezes - Cardiovascular Exam Cardiovascular Exam: REGULAR RHYTHM, +S1, +S2 - GI/Abdominal Exam GI & Abdominal Exam: Soft, Normal Bowel Sounds - Extremities Exam Extremities Exam: Full ROM, Normal Capillary Refill, Normal Inspection - Back Exam Back Exam: NORMAL INSPECTION - Neurological Exam Neurological Exam: Alert, Awake, Oriented x3 - Psychiatric Exam Psychiatric exam: Normal Affect, Normal Mood - Skin Skin Exam: Dry, Intact, Normal Color, Warm Assessment and Plan - Assessment and Plan (Free Text) Plan: B/L Pneumonia/Bands Staph aureus in clusters Bacteremia - CXRay (06/16): Bilateral lower lobe pneumonia, more conspicuous on the right. - Repeated CXRAy 06/17 -Improving bilateral alveolar infiltrates - No leukocytosis, afebrile - Blood culture 06/16 positive for Staph aureus sensitive to vanc - final results - repeat blood cultures 06/18 preliminary showing gram + cocci - Echo ordered due to bacteremia work up - EF more than 70%, mild ventricular hypertrophy, mild to moderate pulm HTN, no signs of endocarditis or vegetations. - Continue Zosyn 2.25mg IV q6h for PNA coverage - Vancomycin 1gm IVPB MWF - after dialysis session for bacteremia - ID consult - Dr Keenan - f/u recs - continue Duonebs Q4H for shortness of breath associated with PNA ESRD on HD MWF - Continue Sensipar 90mg PO Daily [facility] - Continue Sevelamer 1600mg TIDCC - Dr Santiago - Nephro consult - follow up recs - increase UF goal with HD, add EPO - scheduled for dialysis tomorrow Paresthesia/Neuropathic pain (Hands, Arm, Neck) - continue Lyrica 75 mg BID - Neurology consult - Dr Maguire help is appreciated - possible carpal tunnel syndrome, recommends outpatient EMG/NCS testing, continue Lyrica - Percocet x 1 dose given before dialysis for right arm pain during dialysis session Erythema right eye, s/p pterygium removal surgery 2017 - Ofloxacin Opht drops - 1 drop Q4H for two days duration prophylactic for conjuctivitis Thrombocytopenia - possibly secondary to ESRD - Platelets levels stable - Continue to monitor History of Hypertension - BP elevated this morning, asymptomatic - restarted BP meds * Labetolol 300 PO BID * Minoxidil 10mg PO BID - cont holding * Clonidine 0.2mg PO BID - continue to monitor BP History of Type 1 DM - Hemoglobin A1c 11/2017 - 5.9 - Accuchecks // Hypoglycemia Protocol - Renal/ Carb Consistent Diet - continue ISS- moderate - continue Novolog 4 Units AC, Lantus 6 Units HS Nausea, most likely due to complication of diabetes/poss gastroparesis - Zofran x1 dose given today due to nausea - give anti-emetics as needed, watch for neurological side effects Constipation - Senokot 1 tab PO daily History of CVA - Continued Crestor 10mg PO QHS History of GERD - continue Protonix 40mg IVP daily - patient complaining of nausea in pm - one dose of zofran 4mg IVP given Prophylaxis - Protonix 40mg IVP QD - SCDs - VTE contraindication - due to thrombocytopenia Plan discussed with Dr Kayla Berry, PGY-1 <Hermilo Garza - Last Filed: 06/21/18 16:38> Objective - Vital Signs/Intake and Output Vital Signs (last 24 hours): Temp Pulse Resp BP Pulse Ox 98.2 F 78 18 170/72 H 96 06/21/18 07:00 06/21/18 07:00 06/21/18 07:00 06/21/18 07:00 06/21/18 07:00 Intake and Output: 06/21/18 06/21/18 06:59 18:59 Intake Total 400 Balance 400 - Medications Medications: Current Medications Acetaminophen (Tylenol 325mg Tab) 650 mg PO Q6 PRN PRN Reason: Fever >100.4 F Albuterol/Ipratropium (Duoneb 3 Mg/0.5 Mg (3 Ml) Ud) 3 ml INH RQ4 [facility] Last Admin: 06/21/18 11:01 Dose: 3 ml Cinacalcet (Sensipar) 90 mg PO DAILY [facility] Last Admin: 06/21/18 09:32 Dose: 90 mg Clonidine HCl (Catapres) 0.2 mg PO BID [facility] Last Admin: 06/21/18 09:31 Dose: 0.2 mg Dextrose (Dextrose 50% Inj) 0 ml IV STAT PRN; Protocol PRN Reason: Hypoglycemia Protocol Dextrose (Glutose 15) 0 gm PO ONCE PRN; Protocol PRN Reason: Hypoglycemia Protocol Epoetin Dewey (Procrit) 4,000 unit IV MWF [facility] Last Admin: 06/20/18 12:15 Dose: 4,000 unit Glucagon (Glucagen Diagnostic Kit) 0 mg IM STAT PRN; Protocol PRN Reason: Hypoglycemia Protocol Dextrose (Dextrose 5% In Water 1000 Ml) 1,000 mls @ 0 mls/hr IV .Q0M PRN; Protocol PRN Reason: Hypoglycemia Protocol Nafcillin Sodium 2 gm/ Sodium (Chloride) 250 mls @ 250 mls/hr IVPB Q6H [facility]; Protocol Last Admin: 06/21/18 13:52 Dose: 250 mls/hr Insulin Aspart (Novolog) 4 unit SC ACLD [facility] Last Admin: 06/21/18 12:10 Dose: Not Given Insulin Glargine (Lantus) 6 unit SC HS [facility] Last Admin: 06/20/18 22:33 Dose: 6 units Insulin Human Regular (Novolin R) 0 unit SC ACHS [facility]; Protocol Last Admin: 06/21/18 12:09 Dose: Not Given Labetalol HCl (Trandate) 400 mg PO BID [facility] Lactobacillus Acidophilus (Lactobacillus) 1 cap PO BID [facility] Last Admin: 06/21/18 09:31 Dose: 1 cap Minoxidil (Loniten) 10 mg PO BID [facility] Last Admin: 06/21/18 09:32 Dose: 10 mg Pantoprazole Sodium (Protonix Ec Tab) 40 mg PO DAILY [facility] Last Admin: 06/21/18 09:31 Dose: 40 mg Pregabalin (Lyrica) 75 mg PO BID [facility] Last Admin: 06/21/18 09:31 Dose: 75 mg Sennosides (Senokot Tab) 8.6 mg PO DAILY [facility] Last Admin: 06/21/18 09:31 Dose: 8.6 mg Sevelamer Carbonate (Renvela) 1,600 mg PO TIDCC [facility] Last Admin: 06/21/18 13:08 Dose: 1,600 mg Sodium Chloride ([place] Baby Saline 30 Ml) 1 ml NEIL DAILY [facility] Last Admin: 06/21/18 09:32 Dose: 1 ml - Labs Labs: 06/21/18 08:31 06/21/18 08:31 PT 12.8 SECONDS (9.7-12.2) H 06/16/18 15:05 INR 1.2 06/16/18 15:05 APTT 33 SECONDS (21-34) 06/16/18 15:05 Attending/Attestation - Attestation I have personally seen and examined this patient.: Yes I have fully participated in the care of the patient.: Yes I have reviewed all pertinent clinical information, including history, physical exam and plan: Yes Notes (Text): Patient was seen and examined with the resident. Patient is complaining of feeling very tired and weak. Denies fever, no nausea, vomiting diarrhea ,no abdominal pain and her shortness of breath is better. We will continue vancomycin for her bacteremia. Repeat blood culture on the is positive for gram-positive cocci. We will follow the sensitivity and continue Vanco as recommended by infectious disease. Transthoracic echo shows no vegetation. Patient is getting dialysis through her AV fistula . Assessment and plan discussed with the resident
[2018-06-19] MEDS: Pantoprazole 40 mg EC Tab PO SCH (09:45)
--- NOTE | 2018-06-19 10:28 | CP.PCM.PN ---
Subjective - Date & Time of Evaluation Date of Evaluation: 06/19/18 Time of Evaluation: 10:26 - Subjective Subjective: feels better on IV ABs for MSSA bacteremia stable dialysis 06/18 Objective - Vital Signs/Intake and Output Vital Signs (last 24 hours): Temp Pulse Resp BP Pulse Ox 98.3 F 80 20 148/66 98 06/19/18 09:47 06/19/18 09:48 06/19/18 09:47 06/19/18 09:48 06/19/18 09:47 - Medications Medications: Current Medications Acetaminophen (Tylenol 325mg Tab) 650 mg PO Q6 PRN PRN Reason: Fever >100.4 F Albuterol/Ipratropium (Duoneb 3 Mg/0.5 Mg (3 Ml) Ud) 3 ml INH RQ4 [facility] Last Admin: 06/19/18 04:00 Dose: Not Given Cinacalcet (Sensipar) 90 mg PO DAILY [facility] Last Admin: 06/18/18 09:12 Dose: 90 mg Clonidine HCl (Catapres) 0.2 mg PO BID [facility] Last Admin: 06/18/18 09:08 Dose: 0.2 mg Dextrose (Dextrose 50% Inj) 0 ml IV STAT PRN; Protocol PRN Reason: Hypoglycemia Protocol Dextrose (Glutose 15) 0 gm PO ONCE PRN; Protocol PRN Reason: Hypoglycemia Protocol Epoetin Dewey (Procrit) 4,000 unit IV MWF [facility] Glucagon (Glucagen Diagnostic Kit) 0 mg IM STAT PRN; Protocol PRN Reason: Hypoglycemia Protocol Dextrose (Dextrose 5% In Water 1000 Ml) 1,000 mls @ 0 mls/hr IV .Q0M PRN; Protocol PRN Reason: Hypoglycemia Protocol Piperacillin Sod/Tazobactam Sod (Zosyn 2.25 Gm Iv Premix) 2.25 gm in 50 mls @ 100 mls/hr IVPB Q6H [facility]; Protocol Last Admin: 06/19/18 05:10 Dose: 100 mls/hr Vancomycin HCl 1 gm/ Sodium (Chloride) 250 mls @ 166.7 mls/hr IVPB MWF [facility]; Protocol Insulin Aspart (Novolog) 4 unit SC ACLD [facility] Last Admin: 06/18/18 17:10 Dose: Not Given Insulin Glargine (Lantus) 6 unit SC HS [facility] Last Admin: 06/18/18 21:42 Dose: 6 units Insulin Human Regular (Novolin R) 0 unit SC ACHS [facility]; Protocol Last Admin: 06/19/18 07:37 Dose: Not Given Labetalol HCl (Normodyne) 300 mg PO BID [facility] Last Admin: 06/18/18 09:13 Dose: Not Given Minoxidil (Loniten) 10 mg PO BID [facility] Last Admin: 06/18/18 09:10 Dose: Not Given Ofloxacin (Ocuflox Ophth 0.3%) 1 drop OD Q4H [facility] Stop: 06/20/18 11:30 Last Admin: 06/19/18 07:30 Dose: Not Given Pantoprazole Sodium (Protonix Ec Tab) 40 mg PO DAILY [facility] Last Admin: 06/19/18 09:45 Dose: 40 mg Pregabalin (Lyrica) 75 mg PO BID [facility] Last Admin: 06/19/18 09:46 Dose: 75 mg Sevelamer Carbonate (Renvela) 1,600 mg PO TIDCC [facility] Last Admin: 06/19/18 09:46 Dose: 1,600 mg - Labs Labs: 06/19/18 06:47 06/19/18 06:47 PT 12.8 SECONDS (9.7-12.2) H 06/16/18 15:05 INR 1.2 06/16/18 15:05 APTT 33 SECONDS (21-34) 06/16/18 15:05 - Constitutional Appears: No Acute Distress, Chronically Ill - Head Exam Head Exam: ATRAUMATIC, NORMAL INSPECTION - Eye Exam Eye Exam: EOMI, Normal appearance - Neck Exam Neck Exam: Normal Inspection. absent: Tenderness - Respiratory Exam Respiratory Exam: Clear to Ausculation Bilateral, NORMAL BREATHING PATTERN - Cardiovascular Exam Cardiovascular Exam: REGULAR RHYTHM, +S1 - GI/Abdominal Exam GI & Abdominal Exam: Soft. absent: Tenderness - Extremities Exam Extremities Exam: Normal Inspection. absent: Tenderness - Neurological Exam Neurological Exam: Awake, CN II-XII Intact - Skin Skin Exam: Dry, Warm Assessment and Plan (1) ESRD (end stage renal disease) on dialysis Status: Acute (2) Anemia Status: Acute (3) Bacteremia due to Gram-positive bacteria Status: Acute (4) Fluid overload Status: Acute - Assessment and Plan (Free Text) Plan: increase UF goal with HD IV ABs recommend echo add EPO
[2018-06-19] MEDS: (Novolog) Insulin Aspart, Recombinant 100 u/ml 10 ml vial SC SCH ×2 (13:08→16:33)
[2018-06-19] MEDS ORDERED: Labetalol Hydrochloride 300 mg Tab PO ONE (15:00)
[2018-06-19] MEDS: Lactobacillus Acidophilus 500 MU Cap PO SCH (18:19)
--- NOTE | 2018-06-19 19:57 | CP.PCM.PN ---
Subjective - Date & Time of Evaluation Date of Evaluation: 06/19/18 Time of Evaluation: 10:00 - Subjective Subjective: improving less fever awake alert NAD Objective - Vital Signs/Intake and Output Vital Signs (last 24 hours): Temp Pulse Resp BP Pulse Ox 98.1 F 80 20 163/71 H 97 06/19/18 15:45 06/19/18 16:00 06/19/18 15:45 06/19/18 15:45 06/19/18 15:45 Intake and Output: 06/19/18 06/20/18 18:59 06:59 Intake Total 300 Balance 300 - Medications Medications: Current Medications Acetaminophen (Tylenol 325mg Tab) 650 mg PO Q6 PRN PRN Reason: Fever >100.4 F Albuterol/Ipratropium (Duoneb 3 Mg/0.5 Mg (3 Ml) Ud) 3 ml INH RQ4 [facility] Last Admin: 06/19/18 15:50 Dose: 3 ml Cinacalcet (Sensipar) 90 mg PO DAILY [facility] Last Admin: 06/19/18 10:33 Dose: 90 mg Clonidine HCl (Catapres) 0.2 mg PO BID [facility] Dextrose (Dextrose 50% Inj) 0 ml IV STAT PRN; Protocol PRN Reason: Hypoglycemia Protocol Dextrose (Glutose 15) 0 gm PO ONCE PRN; Protocol PRN Reason: Hypoglycemia Protocol Epoetin Dewey (Procrit) 4,000 unit IV MWF [facility] Glucagon (Glucagen Diagnostic Kit) 0 mg IM STAT PRN; Protocol PRN Reason: Hypoglycemia Protocol Dextrose (Dextrose 5% In Water 1000 Ml) 1,000 mls @ 0 mls/hr IV .Q0M PRN; Protocol PRN Reason: Hypoglycemia Protocol Piperacillin Sod/Tazobactam Sod (Zosyn 2.25 Gm Iv Premix) 2.25 gm in 50 mls @ 100 mls/hr IVPB Q6H [facility]; Protocol Last Admin: 06/19/18 18:20 Dose: 100 mls/hr Vancomycin HCl 1 gm/ Sodium (Chloride) 250 mls @ 166.7 mls/hr IVPB MWF [facility]; Protocol Insulin Aspart (Novolog) 4 unit SC ACLD [facility] Last Admin: 06/19/18 16:33 Dose: Not Given Insulin Glargine (Lantus) 6 unit SC HS [facility] Last Admin: 06/18/18 21:42 Dose: 6 units Insulin Human Regular (Novolin R) 0 unit SC ACHS [facility]; Protocol Last Admin: 06/19/18 16:33 Dose: Not Given Labetalol HCl (Normodyne) 300 mg PO BID [facility] Lactobacillus Acidophilus (Lactobacillus) 1 cap PO BID [facility] Last Admin: 06/19/18 18:19 Dose: 1 cap Minoxidil (Loniten) 10 mg PO BID [facility] Last Admin: 06/18/18 09:10 Dose: Not Given Ofloxacin (Ocuflox Ophth 0.3%) 1 drop OD Q4H [facility] Stop: 06/20/18 11:30 Last Admin: 06/19/18 18:29 Dose: 1 applic Pantoprazole Sodium (Protonix Ec Tab) 40 mg PO DAILY [facility] Last Admin: 06/19/18 09:45 Dose: 40 mg Pregabalin (Lyrica) 75 mg PO BID [facility] Last Admin: 06/19/18 18:19 Dose: 75 mg Sennosides (Senokot Tab) 8.6 mg PO DAILY [facility] Last Admin: 06/19/18 13:38 Dose: 8.6 mg Sevelamer Carbonate (Renvela) 1,600 mg PO TIDCC [facility] Last Admin: 06/19/18 17:19 Dose: 1,600 mg - Labs Labs: 06/19/18 06:47 06/19/18 06:47 PT 12.8 SECONDS (9.7-12.2) H 06/16/18 15:05 INR 1.2 06/16/18 15:05 APTT 33 SECONDS (21-34) 06/16/18 15:05 - Constitutional Appears: Non-toxic, Chronically Ill - Head Exam Head Exam: NORMOCEPHALIC - Eye Exam Eye Exam: absent: Scleral icterus - ENT Exam ENT Exam: Mucous Membranes Dry - Neck Exam Neck Exam: absent: Lymphadenopathy - Respiratory Exam Respiratory Exam: Decreased Breath Sounds - Cardiovascular Exam Cardiovascular Exam: REGULAR RHYTHM, +S1, +S2 - GI/Abdominal Exam GI & Abdominal Exam: Distended, Soft. absent: Tenderness - Rectal Exam Rectal Exam: Deferred - Extremities Exam Extremities Exam: absent: Pedal Edema - Back Exam Back Exam: absent: CVA tenderness (L), CVA tenderness (R) - Neurological Exam Neurological Exam: Alert, Awake, Oriented x3 - Psychiatric Exam Psychiatric exam: Normal Mood - Skin Skin Exam: Dry Assessment and Plan (1) ESRD (end stage renal disease) on dialysis Status: Acute (2) Bacteremia due to Gram-positive bacteria Status: Acute - Assessment and Plan (Free Text) Assessment: r/o endocarditis r/o shunt infection consider imaging including echo/ US of fistula IV antibiotics
[2018-06-19] MEDS: (Lantus) Insulin Glargine, Recombinant SC SCH (21:58)
[2018-06-20] MEDS: Albuterol-Ipratrop 3 mg / 0.5 (3 ml) UD INH SCH ×6 (00:45→19:50)
[2018-06-20] MEDS: Ofloxacin 0.3% Ophth Soln OD SCH ×3 (03:30→12:50)
[2018-06-20] MEDS: Piperacill/Tazo 2.25gm in Dex 2.25 GM/50 ML BAG IVPB SCH ×2 (05:10→12:50)
[2018-06-20 06:37] LABS: BASO # 0.1 K/uL (0.0-0.2); EOS # 0.1 K/uL (0.0-0.7); EOS % 1.5 % (0.0-4.0); LYMPH # 1.4 K/uL (1.0-4.3); LYMPH % 24.3 % (20.0-40.0); MEAN CORPUSCULAR HEMOGLOBIN 30.2 pg (27.0-31.0); MEAN CORPUSCULAR HGB CONC 32.8 g/dL (33.0-37.0); MEAN PLATELET VOLUME 11.5 fL (7.2-11.7); MONO # 0.6 K/uL (0.0-0.8); MONO % 10.3 % (0.0-10.0); NEUT # 3.7 K/uL (1.8-7.0); NEUT % 62.9 % (50.0-75.0); NRBC % 0.1 % (0.0-2.0); RBC 3.32 Mil/uL (3.80-5.20); RED CELL DISTRIBUTION WIDTH 14.2 % (11.5-14.5)
[2018-06-20 06:47] LABS: ALB/GLOB RATIO 1.1 (1.0-2.1); ALBUMIN 3.8 g/dL (3.5-5.0); CALCIUM 8.1 mg/dl (8.6-10.4)
--- NOTE | 2018-06-20 07:17 | CP.PCM.PN ---
<Guerrero Berry - Last Filed: 06/21/18 00:19> Subjective - Date & Time of Evaluation Date of Evaluation: 06/20/18 Time of Evaluation: 07:00 - Subjective Subjective: PGY-[address] Garza service Patient is seen and examined at bedside. Patient continues to feel tired, states she has some difficulty breathing, is currently on nasal canula. Patient notices she gets some nasal bleeding when blowing her nose. Patient denies pain in arms. Patient denies fever, chills, chest pain, abdominal pain. Patient has not had a bowel movement yet. Patient scheduled to go for HD this morning. Objective - Vital Signs/Intake and Output Vital Signs (last 24 hours): Temp Pulse Resp BP Pulse Ox 98.9 F 83 20 168/70 H 95 06/19/18 23:15 06/20/18 04:07 06/19/18 23:15 06/19/18 23:15 06/19/18 23:15 Intake and Output: 06/20/18 06/20/18 06:59 18:59 Intake Total 240 Balance 240 - Medications Medications: Current Medications Acetaminophen (Tylenol 325mg Tab) 650 mg PO Q6 PRN PRN Reason: Fever >100.4 F Albuterol/Ipratropium (Duoneb 3 Mg/0.5 Mg (3 Ml) Ud) 3 ml INH RQ4 [facility] Last Admin: 06/20/18 04:00 Dose: Not Given Cinacalcet (Sensipar) 90 mg PO DAILY [facility] Last Admin: 06/19/18 10:33 Dose: 90 mg Clonidine HCl (Catapres) 0.2 mg PO BID [facility] Dextrose (Dextrose 50% Inj) 0 ml IV STAT PRN; Protocol PRN Reason: Hypoglycemia Protocol Dextrose (Glutose 15) 0 gm PO ONCE PRN; Protocol PRN Reason: Hypoglycemia Protocol Epoetin Dewey (Procrit) 4,000 unit IV MWF [facility] Glucagon (Glucagen Diagnostic Kit) 0 mg IM STAT PRN; Protocol PRN Reason: Hypoglycemia Protocol Dextrose (Dextrose 5% In Water 1000 Ml) 1,000 mls @ 0 mls/hr IV .Q0M PRN; Protocol PRN Reason: Hypoglycemia Protocol Piperacillin Sod/Tazobactam Sod (Zosyn 2.25 Gm Iv Premix) 2.25 gm in 50 mls @ 100 mls/hr IVPB Q6H [facility]; Protocol Last Admin: 06/20/18 05:10 Dose: 100 mls/hr Vancomycin HCl 1 gm/ Sodium (Chloride) 250 mls @ 166.7 mls/hr IVPB MWF [facility]; Protocol Insulin Aspart (Novolog) 4 unit SC ACLD [facility] Last Admin: 06/19/18 16:33 Dose: Not Given Insulin Glargine (Lantus) 6 unit SC HS [facility] Last Admin: 06/19/18 21:58 Dose: 6 units Insulin Human Regular (Novolin R) 0 unit SC ACHS [facility]; Protocol Last Admin: 06/19/18 21:58 Dose: Not Given Labetalol HCl (Normodyne) 300 mg PO BID [facility] Lactobacillus Acidophilus (Lactobacillus) 1 cap PO BID [facility] Last Admin: 06/19/18 18:19 Dose: 1 cap Minoxidil (Loniten) 10 mg PO BID [facility] Last Admin: 06/18/18 09:10 Dose: Not Given Ofloxacin (Ocuflox Ophth 0.3%) 1 drop OD Q4H [facility] Stop: 06/20/18 11:30 Last Admin: 06/20/18 03:30 Dose: Not Given Pantoprazole Sodium (Protonix Ec Tab) 40 mg PO DAILY [facility] Last Admin: 06/19/18 09:45 Dose: 40 mg Pregabalin (Lyrica) 75 mg PO BID [facility] Last Admin: 06/19/18 18:19 Dose: 75 mg Sennosides (Senokot Tab) 8.6 mg PO DAILY [facility] Last Admin: 06/19/18 13:38 Dose: 8.6 mg Sevelamer Carbonate (Renvela) 1,600 mg PO TIDCC [facility] Last Admin: 06/19/18 17:19 Dose: 1,600 mg - Labs Labs: 06/20/18 06:22 06/20/18 06:22 PT 12.8 SECONDS (9.7-12.2) H 06/16/18 15:05 INR 1.2 06/16/18 15:05 APTT 33 SECONDS (21-34) 06/16/18 15:05 - Constitutional Appears: Non-toxic, No Acute Distress - Head Exam Head Exam: ATRAUMATIC, NORMAL INSPECTION, NORMOCEPHALIC - Eye Exam Eye Exam: EOMI - ENT Exam ENT Exam: Mucous Membranes Moist, Normal Exam - Neck Exam Neck Exam: Normal Inspection - Respiratory Exam Respiratory Exam: NORMAL BREATHING PATTERN. absent: Accessory Muscle Use, Rales, Rhonchi, Wheezes, Respiratory Distress - Cardiovascular Exam Cardiovascular Exam: REGULAR RHYTHM, +S1, +S2 - GI/Abdominal Exam GI & Abdominal Exam: Soft, Normal Bowel Sounds. absent: Distended, Tenderness - Extremities Exam Extremities Exam: Full ROM. absent: Pedal Edema, Tenderness - Back Exam Back Exam: NORMAL INSPECTION - Neurological Exam Neurological Exam: Alert, Awake, Oriented x3 - Psychiatric Exam Psychiatric exam: Normal Affect, Normal Mood - Skin Skin Exam: Dry, Normal Color, Warm Additional comments: right UE AV fistula with palpable thrill Assessment and Plan - Assessment and Plan (Free Text) Plan: B/L Pneumonia, resolved bandemia Staph aureus in clusters Bacteremia - CXRay (06/16): Bilateral lower lobe pneumonia, more conspicuous on the right. - Repeated CXRAy 06/17 -Improving bilateral alveolar infiltrates - No leukocytosis, afebrile - Blood culture 06/16 positive for Staph aureus sensitive to vanc - final results - repeat blood cultures 06/18 preliminary showing staph aureus - Patient has received only two doses of vancomycin - Echo 06/18 - EF more than 70%, mild ventricular hypertrophy, mild to moderate pulm HTN, no signs of endocarditis or vegetations. - will consider VAN/ cardio consult - Will order chest Xray to follow up PNA, as pt complaining of shortness of breath today - Current meds: * Zosyn 2.25mg IV q6h for PNA coverage * Vancomycin 1gm IVPB MWF - after dialysis session for bacteremia * Duonebs Q4H for shortness of breath associated with PNA - ID consult - Dr Keenan - f/u recs - will follow up with ID regarding continuing Vanc or switching abx for bacteremia ESRD on HD MWF - Scheduled for HD today - Continue Sensipar 90mg PO Daily [facility] - Continue Sevelamer 1600mg TIDCC - Dr Santiago/Marcus - Nephro consult - follow up recs - dialysis today, IV abx, consider VAN for repeat culture positive - fluid restriction Paresthesia/Neuropathic pain (Hands, Arm, Neck) - Improved - continue Lyrica 75 mg BID - Neurology consult - Dr Maguire help is appreciated - possible carpal tunnel syndrome, recommends outpatient EMG/NCS testing, continue Lyrica Erythema right eye, s/p pterygium removal surgery 2017 - Ofloxacin Opht drops - 1 drop Q4H for two days duration prophylactic for conjuctivitis Thrombocytopenia - possibly secondary to ESRD - Platelets levels stable - Continue to monitor History of Hypertension - BP still elevated, asymptomatic - restarted BP meds * Labetolol 300 PO BID * Minoxidil 10mg PO BID * Clonidine 0.2mg PO BID - continue to monitor BP after dialysis History of Type 1 DM - Hemoglobin A1c 11/2017 - 5.9 - Accuchecks // Hypoglycemia Protocol - Renal/ Carb Consistent Diet - continue ISS- moderate - continue Novolog 4 Units AC, Lantus 6 Units HS Nausea, most likely due to complication of diabetes/poss gastroparesis - no reported nausea today - give anti-emetics as needed, watch for neurological side effects Mild epistaxis, most likely 2/2 to dryness of nasal fossa - off oxygen, used as needed, monitor O2 - Sledge baby saline Qdaily Constipation - Senokot 1 tab PO daily - monitor for BM History of CVA - Continued Crestor 10mg PO QHS History of GERD - continue Protonix 40mg IVP daily Prophylaxis - Protonix 40mg IVP QD - SCDs - VTE contraindication - due to thrombocytopenia Plan discussed with Dr Kayla Berry, PGY-1 <Hermilo Garza - Last Filed: 06/21/18 16:33> Objective - Vital Signs/Intake and Output Vital Signs (last 24 hours): Temp Pulse Resp BP Pulse Ox 98.2 F 78 18 170/72 H 96 06/21/18 07:00 06/21/18 07:00 06/21/18 07:00 06/21/18 07:00 06/21/18 07:00 Intake and Output: 06/21/18 06/21/18 06:59 18:59 Intake Total 400 Balance 400 - Medications Medications: Current Medications Acetaminophen (Tylenol 325mg Tab) 650 mg PO Q6 PRN PRN Reason: Fever >100.4 F Albuterol/Ipratropium (Duoneb 3 Mg/0.5 Mg (3 Ml) Ud) 3 ml INH RQ4 [facility] Last Admin: 06/21/18 11:01 Dose: 3 ml Cinacalcet (Sensipar) 90 mg PO DAILY [facility] Last Admin: 06/21/18 09:32 Dose: 90 mg Clonidine HCl (Catapres) 0.2 mg PO BID [facility] Last Admin: 06/21/18 09:31 Dose: 0.2 mg Dextrose (Dextrose 50% Inj) 0 ml IV STAT PRN; Protocol PRN Reason: Hypoglycemia Protocol Dextrose (Glutose 15) 0 gm PO ONCE PRN; Protocol PRN Reason: Hypoglycemia Protocol Epoetin Dewey (Procrit) 4,000 unit IV MWF [facility] Last Admin: 06/20/18 12:15 Dose: 4,000 unit Glucagon (Glucagen Diagnostic Kit) 0 mg IM STAT PRN; Protocol PRN Reason: Hypoglycemia Protocol Dextrose (Dextrose 5% In Water 1000 Ml) 1,000 mls @ 0 mls/hr IV .Q0M PRN; Protocol PRN Reason: Hypoglycemia Protocol Nafcillin Sodium 2 gm/ Sodium (Chloride) 250 mls @ 250 mls/hr IVPB Q6H [facility]; Protocol Last Admin: 06/21/18 13:52 Dose: 250 mls/hr Insulin Aspart (Novolog) 4 unit SC ACLD [facility] Last Admin: 06/21/18 12:10 Dose: Not Given Insulin Glargine (Lantus) 6 unit SC HS [facility] Last Admin: 06/20/18 22:33 Dose: 6 units Insulin Human Regular (Novolin R) 0 unit SC ACHS [facility]; Protocol Last Admin: 06/21/18 12:09 Dose: Not Given Labetalol HCl (Trandate) 400 mg PO BID [facility] Lactobacillus Acidophilus (Lactobacillus) 1 cap PO BID [facility] Last Admin: 06/21/18 09:31 Dose: 1 cap Minoxidil (Loniten) 10 mg PO BID [facility] Last Admin: 06/21/18 09:32 Dose: 10 mg Pantoprazole Sodium (Protonix Ec Tab) 40 mg PO DAILY [facility] Last Admin: 06/21/18 09:31 Dose: 40 mg Pregabalin (Lyrica) 75 mg PO BID [facility] Last Admin: 06/21/18 09:31 Dose: 75 mg Sennosides (Senokot Tab) 8.6 mg PO DAILY [facility] Last Admin: 06/21/18 09:31 Dose: 8.6 mg Sevelamer Carbonate (Renvela) 1,600 mg PO TIDCC [facility] Last Admin: 06/21/18 13:08 Dose: 1,600 mg Sodium Chloride ([place] Baby Saline 30 Ml) 1 ml NEIL DAILY [facility] Last Admin: 06/21/18 09:32 Dose: 1 ml - Labs Labs: 06/21/18 08:31 06/21/18 08:31 PT 12.8 SECONDS (9.7-12.2) H 06/16/18 15:05 INR 1.2 06/16/18 15:05 APTT 33 SECONDS (21-34) 06/16/18 15:05 Attending/Attestation - Attestation I have personally seen and examined this patient.: Yes I have fully participated in the care of the patient.: Yes I have reviewed all pertinent clinical information, including history, physical exam and plan: Yes Notes (Text): Patient was seen and examined with the resident. Patient has no complaint except feeling nausea Her shortness of breath is improving. Her blood pressure is elevated. We will start back on her home antihypertensives. Monitor blood pressure closely. Blood culture sensitivity reviewed. Discussed with Dr. Keenan planning to switch to nafcillin and stop vancomycin. Patient has no fever. Her hand pain is some better. Assessment and plan discussed with the resident, I agree with his documentation.
[2018-06-20] MEDS: (Novolin R) Insulin Human Regular 100 units/ml vial SC SCH ×4 (08:04→22:34)
[2018-06-20] MEDS ORDERED: Epoetin Alfa 4000 UNIT/ML Inj IV SCH (09:00)
[2018-06-20] MEDS: EPOETIN ALFA 4,000 UNIT/ML ML Dialysis IV SCH (12:15)
[2018-06-20] MEDS: Pantoprazole 40 mg EC Tab PO SCH (12:48)
[2018-06-20] MEDS: Lactobacillus Acidophilus 500 MU Cap PO SCH ×2 (12:49→18:20)
[2018-06-20] MEDS: Labetalol Hydrochloride 300 mg Tab PO SCH ×2 (12:52→18:20)
[2018-06-20] MEDS: (Novolog) Insulin Aspart, Recombinant 100 u/ml 10 ml vial SC SCH ×2 (13:00→16:36)
--- NOTE | 2018-06-20 14:22 | CP.PCM.PN ---
Subjective - Date & Time of Evaluation Date of Evaluation: 06/20/18 Time of Evaluation: 14:19 - Subjective Subjective: post dialysis now UF 2700ml repeat culture- MSSA bacteremia fevers better Objective - Vital Signs/Intake and Output Vital Signs (last 24 hours): Temp Pulse Resp BP Pulse Ox 98.5 F 72 18 168/81 H 95 06/20/18 09:15 06/20/18 09:15 06/20/18 12:15 06/20/18 12:15 06/20/18 12:15 Intake and Output: 06/20/18 06/20/18 06:59 18:59 Intake Total 240 Balance 240 - Medications Medications: Current Medications Acetaminophen (Tylenol 325mg Tab) 650 mg PO Q6 PRN PRN Reason: Fever >100.4 F Albuterol/Ipratropium (Duoneb 3 Mg/0.5 Mg (3 Ml) Ud) 3 ml INH RQ4 [facility] Last Admin: 06/20/18 11:31 Dose: Not Given Cinacalcet (Sensipar) 90 mg PO DAILY [facility] Last Admin: 06/20/18 12:50 Dose: 90 mg Clonidine HCl (Catapres) 0.2 mg PO BID [facility] Last Admin: 06/20/18 11:49 Dose: 0.2 mg Dextrose (Dextrose 50% Inj) 0 ml IV STAT PRN; Protocol PRN Reason: Hypoglycemia Protocol Dextrose (Glutose 15) 0 gm PO ONCE PRN; Protocol PRN Reason: Hypoglycemia Protocol Epoetin Dewey (Procrit) 4,000 unit IV [facility] [place] Last Admin: 06/20/18 12:15 Dose: 4,000 unit Glucagon (Glucagen Diagnostic Kit) 0 mg IM STAT PRN; Protocol PRN Reason: Hypoglycemia Protocol Dextrose (Dextrose 5% In Water 1000 Ml) 1,000 mls @ 0 mls/hr IV .Q0M PRN; Protocol PRN Reason: Hypoglycemia Protocol Piperacillin Sod/Tazobactam Sod (Zosyn 2.25 Gm Iv Premix) 2.25 gm in 50 mls @ 100 mls/hr IVPB Q6H [facility]; Protocol Last Admin: 06/20/18 12:50 Dose: 100 mls/hr Vancomycin HCl 1 gm/ Sodium (Chloride) 250 mls @ 166.7 mls/hr IVPB [facility] [place]; Protocol Last Admin: 06/20/18 13:59 Dose: 166.7 mls/hr Insulin Aspart (Novolog) 4 unit SC ACLD [facility] Last Admin: 06/20/18 13:00 Dose: 4 units Insulin Glargine (Lantus) 6 unit SC HS [facility] Last Admin: 06/19/18 21:58 Dose: 6 units Insulin Human Regular (Novolin R) 0 unit SC ACHS [facility]; Protocol Last Admin: 06/20/18 12:33 Dose: Not Given Labetalol HCl (Normodyne) 300 mg PO BID [facility] Last Admin: 06/20/18 12:52 Dose: 300 mg Lactobacillus Acidophilus (Lactobacillus) 1 cap PO BID [facility] Last Admin: 06/20/18 12:49 Dose: 1 cap Minoxidil (Loniten) 10 mg PO BID [facility] Last Admin: 06/20/18 13:08 Dose: Not Given Pantoprazole Sodium (Protonix Ec Tab) 40 mg PO DAILY [facility] Last Admin: 06/20/18 12:48 Dose: 40 mg Pregabalin (Lyrica) 75 mg PO BID [facility] Last Admin: 06/20/18 12:52 Dose: Not Given Sennosides (Senokot Tab) 8.6 mg PO DAILY [facility] Last Admin: 06/20/18 12:49 Dose: 8.6 mg Sevelamer Carbonate (Renvela) 1,600 mg PO TIDCC [facility] Last Admin: 06/20/18 13:01 Dose: 1,600 mg Sodium Chloride ([place] Baby Saline 30 Ml) 1 ml NEIL DAILY [facility] - Labs Labs: 06/20/18 06:22 06/20/18 06:22 PT 12.8 SECONDS (9.7-12.2) H 06/16/18 15:05 INR 1.2 06/16/18 15:05 APTT 33 SECONDS (21-34) 06/16/18 15:05 - Constitutional Appears: No Acute Distress, Chronically Ill - Head Exam Head Exam: ATRAUMATIC, NORMAL INSPECTION - Eye Exam Eye Exam: EOMI, Normal appearance - Neck Exam Neck Exam: Normal Inspection. absent: Tenderness - Respiratory Exam Respiratory Exam: Clear to Ausculation Bilateral, NORMAL BREATHING PATTERN - Cardiovascular Exam Cardiovascular Exam: REGULAR RHYTHM, +S1 - GI/Abdominal Exam GI & Abdominal Exam: Soft. absent: Tenderness - Extremities Exam Extremities Exam: Normal Inspection. absent: Tenderness - Neurological Exam Neurological Exam: Awake, CN II-XII Intact - Skin Skin Exam: Dry, Warm Assessment and Plan (1) ESRD (end stage renal disease) on dialysis Status: Acute (2) Anemia Status: Acute (3) Bacteremia due to Gram-positive bacteria Status: Acute (4) Fluid overload Status: Acute - Assessment and Plan (Free Text) Plan: same dialysis MWF IV ABs Consider VAN as repeat culture positive
--- NOTE | 2018-06-20 14:51 | RAD ---
Date of service: 06/20/2018 HISTORY: f/u PNA COMPARISON: Chest x-ray 06/17/2018 TECHNIQUE: Chest one view . FINDINGS: LUNGS: Bilateral lower lung field airspace opacities appear mildly decreased. There is mild pulmonary vascular congestion. There is left perihilar fullness, likely vascular congestion versus infectious/inflammatory process. PLEURA: No pleural effusion is identified. CARDIOVASCULAR: Heart size is within normal limits. Atherosclerotic calcifications noted of the aorta. Right axillary vascular stent again seen. OSSEOUS STRUCTURES: No acute fracture identified. VISUALIZED UPPER ABDOMEN: Unremarkable. OTHER FINDINGS: None. IMPRESSION: See above
--- NOTE | 2018-06-20 19:19 | CP.PCM.PN ---
Subjective - Date & Time of Evaluation Date of Evaluation: 06/20/18 Time of Evaluation: 08:00 - Subjective Subjective: no rigors feels weak NAD Objective - Vital Signs/Intake and Output Vital Signs (last 24 hours): Temp Pulse Resp BP Pulse Ox 99.2 F 87 20 174/72 H 98 06/20/18 16:00 06/20/18 16:00 06/20/18 16:00 06/20/18 16:00 06/20/18 16:00 Intake and Output: 06/20/18 06/21/18 18:59 06:59 Intake Total 280 Balance 280 - Medications Medications: Current Medications Acetaminophen (Tylenol 325mg Tab) 650 mg PO Q6 PRN PRN Reason: Fever >100.4 F Albuterol/Ipratropium (Duoneb 3 Mg/0.5 Mg (3 Ml) Ud) 3 ml INH RQ4 [facility] Last Admin: 06/20/18 15:42 Dose: 3 ml Cinacalcet (Sensipar) 90 mg PO DAILY [facility] Last Admin: 06/20/18 12:50 Dose: 90 mg Clonidine HCl (Catapres) 0.2 mg PO BID [facility] Last Admin: 06/20/18 11:49 Dose: 0.2 mg Dextrose (Dextrose 50% Inj) 0 ml IV STAT PRN; Protocol PRN Reason: Hypoglycemia Protocol Dextrose (Glutose 15) 0 gm PO ONCE PRN; Protocol PRN Reason: Hypoglycemia Protocol Epoetin Dewey (Procrit) 4,000 unit IV MWF [facility] Last Admin: 06/20/18 12:15 Dose: 4,000 unit Glucagon (Glucagen Diagnostic Kit) 0 mg IM STAT PRN; Protocol PRN Reason: Hypoglycemia Protocol Dextrose (Dextrose 5% In Water 1000 Ml) 1,000 mls @ 0 mls/hr IV .Q0M PRN; Protocol PRN Reason: Hypoglycemia Protocol Nafcillin Sodium 2 gm/ Sodium (Chloride) 250 mls @ 250 mls/hr IVPB Q6H [facility]; Protocol Insulin Aspart (Novolog) 4 unit SC ACLD [facility] Last Admin: 06/20/18 13:00 Dose: 4 units Insulin Glargine (Lantus) 6 unit SC HS [facility] Last Admin: 06/19/18 21:58 Dose: 6 units Insulin Human Regular (Novolin R) 0 unit SC ACHS [facility]; Protocol Last Admin: 06/20/18 12:33 Dose: Not Given Labetalol HCl (Normodyne) 300 mg PO BID [facility] Last Admin: 06/20/18 12:52 Dose: 300 mg Lactobacillus Acidophilus (Lactobacillus) 1 cap PO BID [facility] Last Admin: 06/20/18 12:49 Dose: 1 cap Minoxidil (Loniten) 10 mg PO BID [facility] Last Admin: 06/20/18 13:08 Dose: Not Given Pantoprazole Sodium (Protonix Ec Tab) 40 mg PO DAILY [facility] Last Admin: 06/20/18 12:48 Dose: 40 mg Pregabalin (Lyrica) 75 mg PO BID [facility] Last Admin: 06/20/18 12:52 Dose: Not Given Sennosides (Senokot Tab) 8.6 mg PO DAILY [facility] Last Admin: 06/20/18 12:49 Dose: 8.6 mg Sevelamer Carbonate (Renvela) 1,600 mg PO TIDCC [facility] Last Admin: 06/20/18 13:01 Dose: 1,600 mg Sodium Chloride ([place] Baby Saline 30 Ml) 1 ml NEIL DAILY [facility] - Labs Labs: 06/20/18 06:22 06/20/18 06:22 PT 12.8 SECONDS (9.7-12.2) H 06/16/18 15:05 INR 1.2 06/16/18 15:05 APTT 33 SECONDS (21-34) 06/16/18 15:05 - Constitutional Appears: Non-toxic, No Acute Distress, Chronically Ill - Head Exam Head Exam: ATRAUMATIC, NORMAL INSPECTION, NORMOCEPHALIC - Eye Exam Eye Exam: EOMI, Normal appearance, PERRL Pupil Exam: NORMAL ACCOMODATION, PERRL - ENT Exam ENT Exam: Mucous Membranes Moist, Normal Exam - Neck Exam Neck Exam: Full ROM, Normal Inspection. absent: Lymphadenopathy - Respiratory Exam Respiratory Exam: Clear to Ausculation Bilateral, NORMAL BREATHING PATTERN - Cardiovascular Exam Cardiovascular Exam: REGULAR RHYTHM, +S1, +S2. absent: Murmur - GI/Abdominal Exam GI & Abdominal Exam: Soft, Normal Bowel Sounds. absent: Tenderness - Rectal Exam Rectal Exam: Deferred - Exam Exam: NORMAL INSPECTION - Extremities Exam Extremities Exam: Full ROM, Normal Capillary Refill, Normal Inspection. absent: Joint Swelling, Pedal Edema - Back Exam Back Exam: NORMAL INSPECTION - Neurological Exam Neurological Exam: Alert, Awake, CN II-XII Intact, Normal Gait, Oriented x3 - Psychiatric Exam Psychiatric exam: Normal Affect, Normal Mood - Skin Skin Exam: Dry, Intact, Normal Color, Warm Assessment and Plan (1) ESRD (end stage renal disease) on dialysis Status: Acute (2) Bacteremia due to Gram-positive bacteria Status: Acute - Assessment and Plan (Free Text) Assessment: switch to IV Nafcillin for MSSA in blood for echo/ VAN
[2018-06-20] MEDS: (Lantus) Insulin Glargine, Recombinant SC SCH (22:33)
[2018-06-21] MEDS: Albuterol-Ipratrop 3 mg / 0.5 (3 ml) UD INH SCH ×6 (00:11→19:25)
[2018-06-21] MEDS: (Novolin R) Insulin Human Regular 100 units/ml vial SC SCH ×4 (08:00→22:52)
[2018-06-21 08:44] LABS: BASO # 0.1 K/uL (0.0-0.2); BASO % 0.9 % (0.0-2.0); EOS # 0.2 K/uL (0.0-0.7); EOS % 2.5 % (0.0-4.0); HEMOGLOBIN 9.9 g/dL (11.0-16.0); LYMPH # 1.7 K/uL (1.0-4.3); LYMPH % 26.1 % (20.0-40.0); MEAN CORPUSCULAR HEMOGLOBIN 30.5 pg (27.0-31.0); MEAN CORPUSCULAR HGB CONC 33.2 g/dL (33.0-37.0); MEAN PLATELET VOLUME 11.6 fL (7.2-11.7); MONO # 0.9 K/uL (0.0-0.8); MONO % 14.1 % (0.0-10.0); NEUT # 3.7 K/uL (1.8-7.0); NEUT % 56.4 % (50.0-75.0); NRBC % 0.1 % (0.0-2.0); RBC 3.23 Mil/uL (3.80-5.20); RED CELL DISTRIBUTION WIDTH 14.3 % (11.5-14.5); WHITE BLOOD COUNT 6.5 K/uL (4.8-10.8)
[2018-06-21 09:01] LABS: ALBUMIN 3.8 g/dL (3.5-5.0); CALCIUM 8.1 mg/dl (8.6-10.4)
[2018-06-21] MEDS: Pantoprazole 40 mg EC Tab PO SCH (09:31)
[2018-06-21] MEDS: Lactobacillus Acidophilus 500 MU Cap PO SCH ×2 (09:31→18:08)
[2018-06-21] MEDS: Labetalol Hydrochloride 300 mg Tab PO SCH (09:32)
[2018-06-21] MEDS: Sodium Chloride Nasal 0.65% Soln (30ml) NAS SCH (09:32)
--- NOTE | 2018-06-21 10:41 | CP.PCM.PN ---
<Nano Dee ManoloMario - Last Filed: 06/21/18 15:56> Subjective - Date & Time of Evaluation Date of Evaluation: 06/21/18 Time of Evaluation: 08:00 - Subjective Subjective: Medicine Progress Note: Patient was seen and examined at bedside. Patient states she is feeling better from admission. Patient states she still has mild shortness of breath on exertion. Patient denies chest pain, nausea, vomiting, fever or chills. Objective - Vital Signs/Intake and Output Vital Signs (last 24 hours): Temp Pulse Resp BP Pulse Ox 98.2 F 78 18 170/72 H 96 06/21/18 07:00 06/21/18 07:00 06/21/18 07:00 06/21/18 07:00 06/21/18 07:00 - Medications Medications: Current Medications Acetaminophen (Tylenol 325mg Tab) 650 mg PO Q6 PRN PRN Reason: Fever >100.4 F Albuterol/Ipratropium (Duoneb 3 Mg/0.5 Mg (3 Ml) Ud) 3 ml INH RQ4 [facility] Last Admin: 06/21/18 03:29 Dose: 3 ml Cinacalcet (Sensipar) 90 mg PO DAILY [facility] Last Admin: 06/21/18 09:32 Dose: 90 mg Clonidine HCl (Catapres) 0.2 mg PO BID [facility] Last Admin: 06/21/18 09:31 Dose: 0.2 mg Dextrose (Dextrose 50% Inj) 0 ml IV STAT PRN; Protocol PRN Reason: Hypoglycemia Protocol Dextrose (Glutose 15) 0 gm PO ONCE PRN; Protocol PRN Reason: Hypoglycemia Protocol Epoetin Dewey (Procrit) 4,000 unit IV MWF [facility] Last Admin: 06/20/18 12:15 Dose: 4,000 unit Glucagon (Glucagen Diagnostic Kit) 0 mg IM STAT PRN; Protocol PRN Reason: Hypoglycemia Protocol Dextrose (Dextrose 5% In Water 1000 Ml) 1,000 mls @ 0 mls/hr IV .Q0M PRN; Protocol PRN Reason: Hypoglycemia Protocol Nafcillin Sodium 2 gm/ Sodium (Chloride) 250 mls @ 250 mls/hr IVPB Q6H [facility]; Protocol Last Admin: 06/21/18 08:41 Dose: 250 mls/hr Insulin Aspart (Novolog) 4 unit SC ACLD [facility] Last Admin: 06/20/18 16:36 Dose: 4 units Insulin Glargine (Lantus) 6 unit SC HS [facility] Last Admin: 06/20/18 22:33 Dose: 6 units Insulin Human Regular (Novolin R) 0 unit SC ACHS [facility]; Protocol Last Admin: 06/21/18 08:00 Dose: Not Given Labetalol HCl (Normodyne) 300 mg PO BID [facility] Last Admin: 06/21/18 09:32 Dose: 300 mg Lactobacillus Acidophilus (Lactobacillus) 1 cap PO BID [facility] Last Admin: 06/21/18 09:31 Dose: 1 cap Minoxidil (Loniten) 10 mg PO BID [facility] Last Admin: 06/21/18 09:32 Dose: 10 mg Pantoprazole Sodium (Protonix Ec Tab) 40 mg PO DAILY [facility] Last Admin: 06/21/18 09:31 Dose: 40 mg Pregabalin (Lyrica) 75 mg PO BID [facility] Last Admin: 06/21/18 09:31 Dose: 75 mg Sennosides (Senokot Tab) 8.6 mg PO DAILY [facility] Last Admin: 06/21/18 09:31 Dose: 8.6 mg Sevelamer Carbonate (Renvela) 1,600 mg PO TIDCC [facility] Last Admin: 06/21/18 08:41 Dose: 1,600 mg Sodium Chloride ([place] Baby Saline 30 Ml) 1 ml NEIL DAILY [facility] Last Admin: 06/21/18 09:32 Dose: 1 ml - Labs Labs: 06/21/18 08:31 06/21/18 08:31 PT 12.8 SECONDS (9.7-12.2) H 06/16/18 15:05 INR 1.2 06/16/18 15:05 APTT 33 SECONDS (21-34) 06/16/18 15:05 - Constitutional Appears: No Acute Distress, Chronically Ill - Head Exam Head Exam: ATRAUMATIC, NORMAL INSPECTION - Eye Exam Eye Exam: EOMI, Normal appearance - ENT Exam ENT Exam: Mucous Membranes Moist - Respiratory Exam Respiratory Exam: Clear to Ausculation Bilateral, NORMAL BREATHING PATTERN - Cardiovascular Exam Cardiovascular Exam: REGULAR RHYTHM, +S1, +S2 - GI/Abdominal Exam GI & Abdominal Exam: Soft, Normal Bowel Sounds. absent: Tenderness - Extremities Exam Additional comments: right UE AV fistula with palpable thrill - Neurological Exam Neurological Exam: Alert, Awake, Oriented x3 - Psychiatric Exam Psychiatric exam: Normal Affect - Skin Skin Exam: Normal Color Assessment and Plan - Assessment and Plan (Free Text) Assessment: B/L Pneumonia, resolved bandemia Staph aureus in clusters Bacteremia - No leukocytosis, afebrile - ID consult: Dr Keenan --> help appreciated - Images: * Chest X-Ray (06/16): Bilateral lower lobe pneumonia, more conspicuous on the right. * Repeated Chest X-RAy (06/17): Improving bilateral alveolar infiltrates * Echo (06/18): EF more than 70%, mild ventricular hypertrophy, mild to moderate pulm HTN, no signs of endocarditis or vegetations. - Blood culture 06/16 positive for Staph aureus sensitive to vanc - final results - Repeat blood cultures 06/18 preliminary showing staph aureus - Blood Cultures during dialysis 06/20/18: No growth - preliminary * Cardiology Consult Dr. Leon --> help appreciated * f/u possible VAN recommended per ID, Dr. Keenan - Medications: * Nafcillin 2gm q6h --> started on 06/20/18 * Zosyn 2.25mg IV q6h for PNA coverage - discontinued * Vancomycin 1gm IVPB MWF - after dialysis session for bacteremia - discontinued * Duonebs Q4H for shortness of breath associated with PNA ESRD on HD MWF - Nephro Consult: Dr. Velazquez --> help appreciated - Continue Sensipar 90mg PO Daily [facility] - Continue Sevelamer 1600mg TIDCC - fluid restriction Paresthesia/Neuropathic pain (Hands, Arm, Neck) - Improved - Continue Lyrica 75 mg BID - Neurology consult: Dr Maguire --> help is appreciated * Possible carpal tunnel syndrome, recommends outpatient EMG/NCS testing Erythema right eye, s/p pterygium removal surgery 2018 - Ofloxacin Opht drops - 1 drop Q4H for two days duration prophylactic for conjunctivitis Thrombocytopenia - possibly secondary to ESRD - Platelets levels stable - Continue to monitor History of Hypertension - BP still elevated, asymptomatic - Nephro Consult: Dr. Velazquez --> help appreciated - Restarted home medications * Labetolol 300 PO BID --> increased (06/21/18) to Labetolol 400mg po bid * Minoxidil 10mg PO BID * Clonidine 0.2mg PO BID - continue to monitor BP after dialysis History of Type 1 DM - Hemoglobin A1c 11/2017 - 5.9 - Accuchecks // Hypoglycemia Protocol - continue ISS- moderate - continue Novolog 4 Units AC, Lantus 6 Units HS Nausea, most likely due to complication of diabetes/poss gastroparesis - no reported nausea today - give anti-emetics as needed, watch for neurological side effects Mild epistaxis, most likely 2/2 to dryness of nasal fossa - off oxygen, used as needed, monitor O2 - [place] baby saline Qdaily Constipation - Senokot 1 tab PO daily - monitor for BM History of CVA - Continued Crestor 10mg PO QHS History of GERD - continue Protonix 40mg IVP daily Prophylaxis - Protonix 40mg IVP QD - SCDs - VTE contraindication - due to thrombocytopenia - Florastor bid - Physical therapy evaluated and treat Case discussed with Dr Kayla Dee PGY-2 <Hermilo Garza - Last Filed: 06/21/18 16:30> Objective - Vital Signs/Intake and Output Vital Signs (last 24 hours): Temp Pulse Resp BP Pulse Ox 98.2 F 78 18 170/72 H 96 06/21/18 07:00 06/21/18 07:00 06/21/18 07:00 06/21/18 07:00 06/21/18 07:00 Intake and Output: 06/21/18 06/21/18 06:59 18:59 Intake Total 400 Balance 400 - Medications Medications: Current Medications Acetaminophen (Tylenol 325mg Tab) 650 mg PO Q6 PRN PRN Reason: Fever >100.4 F Albuterol/Ipratropium (Duoneb 3 Mg/0.5 Mg (3 Ml) Ud) 3 ml INH RQ4 [facility] Last Admin: 06/21/18 11:01 Dose: 3 ml Cinacalcet (Sensipar) 90 mg PO DAILY [facility] Last Admin: 06/21/18 09:32 Dose: 90 mg Clonidine HCl (Catapres) 0.2 mg PO BID [facility] Last Admin: 06/21/18 09:31 Dose: 0.2 mg Dextrose (Dextrose 50% Inj) 0 ml IV STAT PRN; Protocol PRN Reason: Hypoglycemia Protocol Dextrose (Glutose 15) 0 gm PO ONCE PRN; Protocol PRN Reason: Hypoglycemia Protocol Epoetin Dewey (Procrit) 4,000 unit IV MWF [facility] Last Admin: 06/20/18 12:15 Dose: 4,000 unit Glucagon (Glucagen Diagnostic Kit) 0 mg IM STAT PRN; Protocol PRN Reason: Hypoglycemia Protocol Dextrose (Dextrose 5% In Water 1000 Ml) 1,000 mls @ 0 mls/hr IV .Q0M PRN; Protocol PRN Reason: Hypoglycemia Protocol Nafcillin Sodium 2 gm/ Sodium (Chloride) 250 mls @ 250 mls/hr IVPB Q6H [facility]; Protocol Last Admin: 06/21/18 13:52 Dose: 250 mls/hr Insulin Aspart (Novolog) 4 unit SC ACLD [facility] Last Admin: 06/21/18 12:10 Dose: Not Given Insulin Glargine (Lantus) 6 unit SC HS [facility] Last Admin: 06/20/18 22:33 Dose: 6 units Insulin Human Regular (Novolin R) 0 unit SC ACHS [facility]; Protocol Last Admin: 06/21/18 12:09 Dose: Not Given Labetalol HCl (Trandate) 400 mg PO BID [facility] Lactobacillus Acidophilus (Lactobacillus) 1 cap PO BID [facility] Last Admin: 06/21/18 09:31 Dose: 1 cap Minoxidil (Loniten) 10 mg PO BID [facility] Last Admin: 06/21/18 09:32 Dose: 10 mg Pantoprazole Sodium (Protonix Ec Tab) 40 mg PO DAILY [facility] Last Admin: 06/21/18 09:31 Dose: 40 mg Pregabalin (Lyrica) 75 mg PO BID [facility] Last Admin: 06/21/18 09:31 Dose: 75 mg Sennosides (Senokot Tab) 8.6 mg PO DAILY [facility] Last Admin: 06/21/18 09:31 Dose: 8.6 mg Sevelamer Carbonate (Renvela) 1,600 mg PO TIDCC [facility] Last Admin: 06/21/18 13:08 Dose: 1,600 mg Sodium Chloride (Gravelly Baby Saline 30 Ml) 1 ml NEIL DAILY [facility] Last Admin: 06/21/18 09:32 Dose: 1 ml - Labs Labs: 06/21/18 08:31 06/21/18 08:31 PT 12.8 SECONDS (9.7-12.2) H 06/16/18 15:05 INR 1.2 02/25/19 15:05 APTT 33 SECONDS (21-34) 06/16/18 15:05 Attending/Attestation - Attestation I have personally seen and examined this patient.: Yes I have fully participated in the care of the patient.: Yes I have reviewed all pertinent clinical information, including history, physical exam and plan: Yes Notes (Text): Patient was seen and examined this morning. She feels little better. No shortness of breath no fever, eating okay. Discuss about cardiac evaluation for transesophageal echocardiogram. Patient's said she was told by other physician that she may need endoscopic ultrasound of her heart. Her blood culture on the 02/15 gross staph. Last blood culture done on June 20 no growth last 24 hours. Antibiotics was changed to nafcillin by Dr. Keenan. Cardiology consult was requested for possible VAN. Continue dialysis as per pbx mechanic. Continue Lyrica for her hand pain. Her blood pressure was high labetalol dose was increased by pbx mechanic. We will continue her home meds for her high blood pressure and monitor blood pressure. Assessment and plan discussed with resident. I agree with the documentation.
--- NOTE | 2018-06-21 10:46 | CP.PCM.PN ---
Subjective - Date & Time of Evaluation Date of Evaluation: 06/21/18 Time of Evaluation: 10:44 - Subjective Subjective: stable dialysis 06/20 afebrile now on IV ABs for MSSA bacteremia recs for VAN noted Objective - Vital Signs/Intake and Output Vital Signs (last 24 hours): Temp Pulse Resp BP Pulse Ox 98.2 F 78 18 170/72 H 96 06/21/18 07:00 06/21/18 07:00 06/21/18 07:00 06/21/18 07:00 06/21/18 07:00 - Medications Medications: Current Medications Acetaminophen (Tylenol 325mg Tab) 650 mg PO Q6 PRN PRN Reason: Fever >100.4 F Albuterol/Ipratropium (Duoneb 3 Mg/0.5 Mg (3 Ml) Ud) 3 ml INH RQ4 [facility] Last Admin: 06/21/18 03:29 Dose: 3 ml Cinacalcet (Sensipar) 90 mg PO DAILY [facility] Last Admin: 06/21/18 09:32 Dose: 90 mg Clonidine HCl (Catapres) 0.2 mg PO BID [facility] Last Admin: 06/21/18 09:31 Dose: 0.2 mg Dextrose (Dextrose 50% Inj) 0 ml IV STAT PRN; Protocol PRN Reason: Hypoglycemia Protocol Dextrose (Glutose 15) 0 gm PO ONCE PRN; Protocol PRN Reason: Hypoglycemia Protocol Epoetin Dewey (Procrit) 4,000 unit IV MWF [facility] Last Admin: 06/20/18 12:15 Dose: 4,000 unit Glucagon (Glucagen Diagnostic Kit) 0 mg IM STAT PRN; Protocol PRN Reason: Hypoglycemia Protocol Dextrose (Dextrose 5% In Water 1000 Ml) 1,000 mls @ 0 mls/hr IV .Q0M PRN; Protocol PRN Reason: Hypoglycemia Protocol Nafcillin Sodium 2 gm/ Sodium (Chloride) 250 mls @ 250 mls/hr IVPB Q6H [facility]; Protocol Last Admin: 06/21/18 08:41 Dose: 250 mls/hr Insulin Aspart (Novolog) 4 unit SC ACLD [facility] Last Admin: 06/20/18 16:36 Dose: 4 units Insulin Glargine (Lantus) 6 unit SC HS [facility] Last Admin: 06/20/18 22:33 Dose: 6 units Insulin Human Regular (Novolin R) 0 unit SC ACHS [facility]; Protocol Last Admin: 06/21/18 08:00 Dose: Not Given Labetalol HCl (Normodyne) 300 mg PO BID [facility] Last Admin: 06/21/18 09:32 Dose: 300 mg Lactobacillus Acidophilus (Lactobacillus) 1 cap PO BID [facility] Last Admin: 06/21/18 09:31 Dose: 1 cap Minoxidil (Loniten) 10 mg PO BID [facility] Last Admin: 06/21/18 09:32 Dose: 10 mg Pantoprazole Sodium (Protonix Ec Tab) 40 mg PO DAILY [facility] Last Admin: 06/21/18 09:31 Dose: 40 mg Pregabalin (Lyrica) 75 mg PO BID [facility] Last Admin: 06/21/18 09:31 Dose: 75 mg Sennosides (Senokot Tab) 8.6 mg PO DAILY [facility] Last Admin: 06/21/18 09:31 Dose: 8.6 mg Sevelamer Carbonate (Renvela) 1,600 mg PO TIDCC [facility] Last Admin: 06/21/18 08:41 Dose: 1,600 mg Sodium Chloride ([place] Baby Saline 30 Ml) 1 ml NEIL DAILY [facility] Last Admin: 06/21/18 09:32 Dose: 1 ml - Labs Labs: 06/21/18 08:31 06/21/18 08:31 PT 12.8 SECONDS (9.7-12.2) H 06/16/18 15:05 INR 1.2 06/16/18 15:05 APTT 33 SECONDS (21-34) 06/16/18 15:05 - Constitutional Appears: No Acute Distress, Chronically Ill - Head Exam Head Exam: ATRAUMATIC, NORMAL INSPECTION - Eye Exam Eye Exam: EOMI, Normal appearance, Periorbital tenderness - Neck Exam Neck Exam: Normal Inspection. absent: Tenderness - Respiratory Exam Respiratory Exam: Clear to Ausculation Bilateral, NORMAL BREATHING PATTERN - Cardiovascular Exam Cardiovascular Exam: REGULAR RHYTHM, +S1 - GI/Abdominal Exam GI & Abdominal Exam: Soft. absent: Tenderness - Extremities Exam Extremities Exam: Normal Inspection. absent: Tenderness - Neurological Exam Neurological Exam: Awake, CN II-XII Intact - Skin Skin Exam: Dry, Warm Assessment and Plan (1) ESRD (end stage renal disease) on dialysis Status: Acute (2) Anemia Status: Acute (3) Bacteremia due to Gram-positive bacteria Status: Acute (4) Fluid overload Status: Acute - Assessment and Plan (Free Text) Plan: dialysis MWF Adjust BP meds IV ABs Await VAN
[2018-06-21] MEDS: (Novolog) Insulin Aspart, Recombinant 100 u/ml 10 ml vial SC SCH ×2 (12:10→18:09)
[2018-06-21] MEDS: (Lantus) Insulin Glargine, Recombinant SC SCH (22:52)
--- NOTE | 2018-06-21 23:17 | CON ---
DATE: 06/21/2018 CARDIOLOGY CONSULTATION REASON FOR CONSULTATION: Bacteremia. HISTORY OF PRESENT ILLNESS: The patient is a 43-year-old female who has a history of type 1 diabetes mellitus and end-stage renal disease, on hemodialysis for the past 12 years, was initially admitted because of generalized body aches. The patient's blood culture was positive for Staph aureus. The patient is unaware of any prior cardiac infection. The patient has no catheter access for dialysis and does not report any recent endoscopic procedure. SOCIAL HISTORY: The patient is a nonsmoker. MEDICATIONS: Clonidine 0.2 mg twice a day, Lactobacillus one tablet twice a day, minoxidil 10 mg twice a day, Lyrica 75 mg twice a day, nafcillin 2 g intravenously every 6 hours, Renvela 1600 mg t.i.d., Trandate mg twice a day. REVIEW OF SYSTEMS: The patient denies having fever or chills prior to admission; however, yesterday's temperature was 99.2. The patient has retrosternal chest pain. No dizziness or syncope. PHYSICAL EXAMINATION: GENERAL: The patient is a middle-aged female who does not appear to be in acute distress. VITAL SIGNS: Blood pressure 170/72, heart rate 78, temperature 98.2, respiratory rate 18. HEENT: Normocephalic. CHEST: Clear. HEART: Sounds regular. EXTREMITIES: No edema. LABORATORY DATA: SMA-7: Sodium 139, potassium 5, chloride 96, CO2 of 28, glucose 80, BUN 32, creatinine 5. Alkaline phosphatase is elevated at 439. Today's hemoglobin and hematocrit are 9.9 and 29.7, white count 6.5, platelet count 118,000. INR is 1.2, PTT is 33. EKG revealed normal sinus rhythm at 95 beats per minute, possible left atrial enlargement. Echocardiographic study revealed normal ejection fraction, normal diastolic function, mildly dilated left atrium, mild tricuspid insufficiency, [id number] pulmonary hypertension, small posterior pericardial effusion. Chest x-ray, most recent one done yesterday revealed bilateral lower lung field air space opacities, appears mildly decreased. Mild pulmonary vascular congestion. ASSESSMENT: 1. Staphylococcus aureus bacteremia. 2. Bilateral pneumonia. 3. End-stage renal disease, on hemodialysis. 4. Hypertension. 5. Diabetes mellitus. RECOMMENDATIONS: Continue current Lactobacillus, IV nafcillin 2 g every 6 hours. Continue clonidine 0.2 mg twice a day. I will review the transthoracic echocardiographic study prior to scheduling the patient for transesophageal echo. Rommel Leon MD
[2018-06-22] MEDS: Albuterol-Ipratrop 3 mg / 0.5 (3 ml) UD INH SCH ×6 (00:23→20:02)
[2018-06-22] MEDS: (Novolin R) Insulin Human Regular 100 units/ml vial SC SCH ×4 (08:00→21:56)
[2018-06-22 08:25] LABS: BASO # 0.1 K/uL (0.0-0.2); EOS # 0.3 K/uL (0.0-0.7); EOS % 4.4 % (0.0-4.0); HEMOGLOBIN 9.7 g/dL (11.0-16.0); LYMPH # 1.7 K/uL (1.0-4.3); LYMPH % 27.9 % (20.0-40.0); MEAN CELL VOLUME 91.6 fL (81.0-99.0); MEAN CORPUSCULAR HEMOGLOBIN 30.7 pg (27.0-31.0); MEAN CORPUSCULAR HGB CONC 33.5 g/dL (33.0-37.0); MEAN PLATELET VOLUME 11.3 fL (7.2-11.7); MONO # 0.8 K/uL (0.0-0.8); MONO % 12.9 % (0.0-10.0); NEUT # 3.4 K/uL (1.8-7.0); NEUT % 53.8 % (50.0-75.0); RBC 3.16 Mil/uL (3.80-5.20); RED CELL DISTRIBUTION WIDTH 14.9 % (11.5-14.5); WHITE BLOOD COUNT 6.2 K/uL (4.8-10.8)
[2018-06-22 08:43] LABS: ALBUMIN 3.4 g/dL (3.5-5.0); CALCIUM 7.5 mg/dl (8.6-10.4)
[2018-06-22] MEDS: Pantoprazole 40 mg EC Tab PO SCH (09:49)
[2018-06-22] MEDS: Lactobacillus Acidophilus 500 MU Cap PO SCH ×2 (09:49→20:11)
[2018-06-22] MEDS: Sodium Chloride Nasal 0.65% Soln (30ml) NAS SCH (10:00)
--- NOTE | 2018-06-22 10:01 | CP.PCM.PN ---
Objective - Vital Signs/Intake and Output Vital Signs (last 24 hours): Temp Pulse Resp BP Pulse Ox 97.9 F 83 20 104/58 L 97 06/22/18 07:00 06/22/18 07:00 06/22/18 07:00 06/22/18 07:00 06/22/18 07:00 - Medications Medications: Current Medications Acetaminophen (Tylenol 325mg Tab) 650 mg PO Q6 PRN PRN Reason: Fever >100.4 F Last Admin: 06/21/18 17:56 Dose: 650 mg Albuterol/Ipratropium (Duoneb 3 Mg/0.5 Mg (3 Ml) Ud) 3 ml INH RQ4 [facility] Last Admin: 06/22/18 04:17 Dose: Not Given Cinacalcet (Sensipar) 90 mg PO DAILY [facility] Last Admin: 06/22/18 09:48 Dose: 90 mg Clonidine HCl (Catapres) 0.2 mg PO BID [facility] Last Admin: 06/21/18 18:17 Dose: Not Given Dextrose (Dextrose 50% Inj) 0 ml IV STAT PRN; Protocol PRN Reason: Hypoglycemia Protocol Dextrose (Glutose 15) 0 gm PO ONCE PRN; Protocol PRN Reason: Hypoglycemia Protocol Epoetin Dewey (Procrit) 4,000 unit IV MWF [facility] Last Admin: 06/20/18 12:15 Dose: 4,000 unit Glucagon (Glucagen Diagnostic Kit) 0 mg IM STAT PRN; Protocol PRN Reason: Hypoglycemia Protocol Dextrose (Dextrose 5% In Water 1000 Ml) 1,000 mls @ 0 mls/hr IV .Q0M PRN; Protocol PRN Reason: Hypoglycemia Protocol Nafcillin Sodium 2 gm/ Sodium (Chloride) 250 mls @ 250 mls/hr IVPB Q6H [facility]; Protocol Last Admin: 06/22/18 09:30 Dose: 250 mls/hr Insulin Aspart (Novolog) 4 unit SC ACLD [facility] Last Admin: 06/21/18 18:09 Dose: 4 units Insulin Glargine (Lantus) 6 unit SC HS [facility] Last Admin: 06/21/18 22:52 Dose: 6 units Insulin Human Regular (Novolin R) 0 unit SC ACHS [facility]; Protocol Last Admin: 06/22/18 08:00 Dose: Not Given Labetalol HCl (Trandate) 400 mg PO BID [facility] Last Admin: 06/21/18 18:16 Dose: Not Given Lactobacillus Acidophilus (Lactobacillus) 1 cap PO BID [facility] Last Admin: 06/22/18 09:49 Dose: 1 cap Minoxidil (Loniten) 10 mg PO BID [facility] Last Admin: 06/21/18 18:16 Dose: Not Given Pantoprazole Sodium (Protonix Ec Tab) 40 mg PO DAILY [facility] Last Admin: 06/22/18 09:49 Dose: 40 mg Pregabalin (Lyrica) 75 mg PO BID [facility] Last Admin: 06/22/18 09:47 Dose: 75 mg Sennosides (Senokot Tab) 8.6 mg PO DAILY [facility] Last Admin: 06/22/18 09:50 Dose: 8.6 mg Sevelamer Carbonate (Renvela) 1,600 mg PO TIDCC [facility] Last Admin: 06/22/18 09:00 Dose: 1,600 mg Sodium Chloride ([place] Baby Saline 30 Ml) 1 ml NEIL DAILY [facility] Last Admin: 06/21/18 09:32 Dose: 1 ml - Labs Labs: 06/22/18 08:12 06/22/18 08:12 PT 12.8 SECONDS (9.7-12.2) H 06/16/18 15:05 INR 1.2 06/16/18 15:05 APTT 33 SECONDS (21-34) 06/16/18 15:05
[2018-06-22] MEDS: (Novolog) Insulin Aspart, Recombinant 100 u/ml 10 ml vial SC SCH ×2 (12:30→20:13)
--- NOTE | 2018-06-22 15:23 | CP.PCM.PN ---
Subjective - Date & Time of Evaluation Date of Evaluation: 06/22/18 Time of Evaluation: 09:00 - Subjective Subjective: IV rx in progress nad afeb Objective - Vital Signs/Intake and Output Vital Signs (last 24 hours): Temp Pulse Resp BP Pulse Ox 97.9 F 83 20 104/58 L 97 06/22/18 07:00 06/22/18 07:00 06/22/18 07:00 06/22/18 07:00 06/22/18 07:00 - Medications Medications: Current Medications Acetaminophen (Tylenol 325mg Tab) 650 mg PO Q6 PRN PRN Reason: Fever >100.4 F Last Admin: 06/21/18 17:56 Dose: 650 mg Albuterol/Ipratropium (Duoneb 3 Mg/0.5 Mg (3 Ml) Ud) 3 ml INH RQ4 [facility] Last Admin: 06/22/18 12:25 Dose: 3 ml Cinacalcet (Sensipar) 90 mg PO DAILY [facility] Last Admin: 06/22/18 09:48 Dose: 90 mg Clonidine HCl (Catapres) 0.2 mg PO BID [facility] Last Admin: 06/22/18 10:00 Dose: Not Given Dextrose (Dextrose 50% Inj) 0 ml IV STAT PRN; Protocol PRN Reason: Hypoglycemia Protocol Dextrose (Glutose 15) 0 gm PO ONCE PRN; Protocol PRN Reason: Hypoglycemia Protocol Docusate Sodium (Colace) 100 mg PO BID [facility] Epoetin Dewey (Procrit) 4,000 unit IV MWF [facility] Last Admin: 06/20/18 12:15 Dose: 4,000 unit Glucagon (Glucagen Diagnostic Kit) 0 mg IM STAT PRN; Protocol PRN Reason: Hypoglycemia Protocol Dextrose (Dextrose 5% In Water 1000 Ml) 1,000 mls @ 0 mls/hr IV .Q0M PRN; Protocol PRN Reason: Hypoglycemia Protocol Nafcillin Sodium 2 gm/ Sodium (Chloride) 250 mls @ 250 mls/hr IVPB Q6H [facility]; Protocol Last Admin: 06/22/18 15:12 Dose: 250 mls/hr Insulin Aspart (Novolog) 4 unit SC ACLD [facility] Last Admin: 06/22/18 12:30 Dose: 4 units Insulin Glargine (Lantus) 6 unit SC HS [facility] Last Admin: 06/21/18 22:52 Dose: 6 units Insulin Human Regular (Novolin R) 0 unit SC ACHS [facility]; Protocol Last Admin: 06/22/18 12:00 Dose: Not Given Labetalol HCl (Trandate) 400 mg PO BID [facility] Last Admin: 06/22/18 11:00 Dose: Not Given Lactobacillus Acidophilus (Lactobacillus) 1 cap PO BID [facility] Last Admin: 06/22/18 09:49 Dose: 1 cap Minoxidil (Loniten) 10 mg PO BID [facility] Last Admin: 06/22/18 10:00 Dose: Not Given Pantoprazole Sodium (Protonix Ec Tab) 40 mg PO DAILY [facility] Last Admin: 06/22/18 09:49 Dose: 40 mg Pregabalin (Lyrica) 75 mg PO BID [facility] Last Admin: 06/22/18 09:47 Dose: 75 mg Sennosides (Senokot Tab) 8.6 mg PO DAILY [facility] Last Admin: 06/22/18 09:50 Dose: 8.6 mg Sevelamer Carbonate (Renvela) 1,600 mg PO TIDCC [facility] Last Admin: 06/22/18 13:09 Dose: 1,600 mg Sodium Chloride ([place] Baby Saline 30 Ml) 1 ml NEIL DAILY [facility] Last Admin: 06/22/18 10:00 Dose: 1 ml - Labs Labs: 06/22/18 08:12 06/22/18 08:12 PT 12.8 SECONDS (9.7-12.2) H 06/16/18 15:05 INR 1.2 06/16/18 15:05 APTT 33 SECONDS (21-34) 06/16/18 15:05 - Constitutional Appears: Cachectic, Chronically Ill - Head Exam Head Exam: ATRAUMATIC, NORMAL INSPECTION, NORMOCEPHALIC - Eye Exam Eye Exam: EOMI, Normal appearance, PERRL Pupil Exam: NORMAL ACCOMODATION, PERRL - ENT Exam ENT Exam: Mucous Membranes Moist, Normal Exam - Neck Exam Neck Exam: Full ROM, Normal Inspection. absent: Lymphadenopathy - Respiratory Exam Respiratory Exam: Clear to Ausculation Bilateral, NORMAL BREATHING PATTERN - Cardiovascular Exam Cardiovascular Exam: REGULAR RHYTHM, +S1, +S2. absent: Murmur - GI/Abdominal Exam GI & Abdominal Exam: Soft, Normal Bowel Sounds. absent: Tenderness - Rectal Exam Rectal Exam: Deferred - Exam Exam: NORMAL INSPECTION - Extremities Exam Extremities Exam: Full ROM, Normal Capillary Refill, Normal Inspection. absent: Joint Swelling, Pedal Edema - Back Exam Back Exam: NORMAL INSPECTION - Neurological Exam Neurological Exam: Alert, Awake, CN II-XII Intact, Normal Gait, Oriented x3 - Psychiatric Exam Psychiatric exam: Normal Affect, Normal Mood - Skin Skin Exam: Dry, Intact, Normal Color, Warm Assessment and Plan (1) ESRD (end stage renal disease) on dialysis Status: Acute (2) Bacteremia due to Gram-positive bacteria Status: Acute - Assessment and Plan (Free Text) Assessment: consider VAN
--- NOTE | 2018-06-22 16:15 | CP.PCM.PN ---
Subjective - Date & Time of Evaluation Date of Evaluation: 06/22/18 Time of Evaluation: 10:40 - Subjective Subjective: Patient was seen and examined this morning. Denies shortness of breath, no nausea vomiting, no fever, denies hand pain. Feels tired. Patient is on nafcillin for bacteremia. c/o constipation,started on colace she also had kayaxelate for high K Objective - Vital Signs/Intake and Output Vital Signs (last 24 hours): Temp Pulse Resp BP Pulse Ox 97.9 F 83 20 104/58 L 97 06/22/18 07:00 06/22/18 07:00 06/22/18 07:00 06/22/18 07:00 06/22/18 07:00 - Medications Medications: Current Medications Acetaminophen (Tylenol 325mg Tab) 650 mg PO Q6 PRN PRN Reason: Fever >100.4 F Last Admin: 06/21/18 17:56 Dose: 650 mg Albuterol/Ipratropium (Duoneb 3 Mg/0.5 Mg (3 Ml) Ud) 3 ml INH RQ4 [facility] Last Admin: 06/22/18 12:25 Dose: 3 ml Cinacalcet (Sensipar) 90 mg PO DAILY [facility] Last Admin: 06/22/18 09:48 Dose: 90 mg Clonidine HCl (Catapres) 0.2 mg PO BID [facility] Last Admin: 06/22/18 10:00 Dose: Not Given Dextrose (Dextrose 50% Inj) 0 ml IV STAT PRN; Protocol PRN Reason: Hypoglycemia Protocol Dextrose (Glutose 15) 0 gm PO ONCE PRN; Protocol PRN Reason: Hypoglycemia Protocol Docusate Sodium (Colace) 100 mg PO BID [facility] Epoetin Dewey (Procrit) 4,000 unit IV MWF [facility] Last Admin: 06/20/18 12:15 Dose: 4,000 unit Glucagon (Glucagen Diagnostic Kit) 0 mg IM STAT PRN; Protocol PRN Reason: Hypoglycemia Protocol Dextrose (Dextrose 5% In Water 1000 Ml) 1,000 mls @ 0 mls/hr IV .Q0M PRN; Protocol PRN Reason: Hypoglycemia Protocol Nafcillin Sodium 2 gm/ Sodium (Chloride) 250 mls @ 250 mls/hr IVPB Q6H [facility]; Protocol Last Admin: 06/22/18 15:12 Dose: 250 mls/hr Insulin Aspart (Novolog) 4 unit SC ACLD [facility] Last Admin: 06/22/18 12:30 Dose: 4 units Insulin Glargine (Lantus) 6 unit SC HS [facility] Last Admin: 06/21/18 22:52 Dose: 6 units Insulin Human Regular (Novolin R) 0 unit SC ACHS [facility]; Protocol Last Admin: 06/22/18 12:00 Dose: Not Given Labetalol HCl (Trandate) 400 mg PO BID [facility] Last Admin: 06/22/18 11:00 Dose: Not Given Lactobacillus Acidophilus (Lactobacillus) 1 cap PO BID [facility] Last Admin: 06/22/18 09:49 Dose: 1 cap Minoxidil (Loniten) 10 mg PO BID [facility] Last Admin: 06/22/18 10:00 Dose: Not Given Pantoprazole Sodium (Protonix Ec Tab) 40 mg PO DAILY [facility] Last Admin: 06/22/18 09:49 Dose: 40 mg Pregabalin (Lyrica) 75 mg PO BID [facility] Last Admin: 06/22/18 09:47 Dose: 75 mg Sennosides (Senokot Tab) 8.6 mg PO DAILY [facility] Last Admin: 06/22/18 09:50 Dose: 8.6 mg Sevelamer Carbonate (Renvela) 1,600 mg PO TIDCC [facility] Last Admin: 06/22/18 13:09 Dose: 1,600 mg Sodium Chloride ([place] Baby Saline 30 Ml) 1 ml NEIL DAILY [facility] Last Admin: 06/22/18 10:00 Dose: 1 ml - Labs Labs: 06/22/18 08:12 06/22/18 08:12 PT 12.8 SECONDS (9.7-12.2) H 06/16/18 15:05 INR 1.2 06/16/18 15:05 APTT 33 SECONDS (21-34) 06/16/18 15:05 - Constitutional Appears: No Acute Distress, Chronically Ill - Head Exam Head Exam: NORMAL INSPECTION - Eye Exam Eye Exam: Normal appearance - ENT Exam ENT Exam: Mucous Membranes Moist - Neck Exam Neck Exam: Full ROM - Respiratory Exam Respiratory Exam: Clear to Ausculation Bilateral, NORMAL BREATHING PATTERN - Cardiovascular Exam Cardiovascular Exam: REGULAR RHYTHM - GI/Abdominal Exam GI & Abdominal Exam: Soft, Normal Bowel Sounds - Extremities Exam Extremities Exam: Full ROM - Back Exam Back Exam: NORMAL INSPECTION - Neurological Exam Neurological Exam: Awake, Oriented x3 - Psychiatric Exam Psychiatric exam: Normal Affect, Normal Mood - Skin Skin Exam: Normal Color Assessment and Plan - Assessment and Plan (Free Text) Plan: 1. Staph aureus bacteremia on nafcillin ID consult: Dr Keenan - Images: Chest X-Ray (06/16): Bilateral lower lobe pneumonia, more conspicuous on the right. Repeated Chest X-RAy (06/17): Improving bilateral alveolar infiltrates Transthoracic echo (06/18): EF more than 70%, mild ventricular hypertrophy, mild to moderate pulm HTN, no signs of endocarditis or vegetations. - Blood culture 06/16 and 06/18 positive for Staph aureus sensitive Her staph aureus infection is sensitive for nafcillin. Continue nafcillin as recommended by Dr. Keenan Cardiology Consult Dr. 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 Velazquez --> help appreciated - Continue Sensipar 90mg PO Daily [facility] - Continue Sevelamer 1600mg TID[facility] - fluid restriction [id number] K,dialysis tomorrow 3.Paresthesia/Neuropathic pain (Hands, Arm, Neck) - Improved - Continue Lyrica 75 mg BID - Neurology consult: Dr Maguire --> help is appreciated Possible carpal tunnel syndrome, recommends outpatient EMG/NCS testing 4.Erythema right eye, s/p pterygium removal surgery 2017 - Ofloxacin Opht drops - 1 drop Q4H for two days duration prophylactic for conjunctivitis 5.Thrombocytopenia - possibly secondary to ESRD - Platelets levels stable - Continue to monitor 6.History of Hypertension - BP still elevated, asymptomatic - Nephro Consult: Dr. Velazquez --> help appreciated - Restarted home medications Labetolol 300 PO BID --> increased (06/21/18) to Labetolol 400mg po bid Minoxidil 10mg PO BID Clonidine 0.2mg PO BID - continue to monitor BP after dialysis 7.History of Type 1 DM - Hemoglobin A1c 11/2017 - 5.9 - Accuchecks // Hypoglycemia Protocol - continue ISS- moderate - continue Novolog 4 Units AC, Lantus 6 Units HS 8.Constipation - Senokot 1 tab PO daily - monitor for BM 9.History of CVA - Continued Crestor 10mg PO QHS 10.History of GERD - continue Protonix 40mg IVP daily Prophylaxis - Protonix 40mg IVP QD - SCDs - VTE contraindication - due to thrombocytopenia - Florastor bid
--- NOTE | 2018-06-22 20:17 | PN ---
DATE: 06/22/2018 SUBJECTIVE: The denies any chest pain or shortness of breath. PHYSICAL EXAMINATION: VITAL SIGNS: Blood pressure 104/58, heart rate 83, temperature 97.5, respiration 20. HEENT: Pale conjunctivae. CHEST: Clear. HEART: S1 and S2 regular. EXTREMITIES: No edema. LABORATORY DATA: Today's SMA-7 show sodium 135, potassium 5.7, chloride 99, CO2 26, glucose 241, BUN 48, creatinine 6.4. Hemoglobin and hematocrit 9.7 and 28.9. ASSESSMENT: 1. Staphylococcus aureus bacteremia. 2. End-stage renal disease on hemodialysis. 3. Hyperkalemia. 4. Hypertension and diabetes mellitus. 5. Bilateral pneumonia. RECOMMENDATIONS: Continue clonidine 0.2 mg twice a day, albuterol inhaler, lactobacillus, IV nafcillin, continue Labetalol 400 mg twice a day, I will administer Kayexalate 60 g p.o. today. Follow up BMP in a.m. and patient will be kept n.p.o. for tomorrow. Rommel Leon MD
[2018-06-22] MEDS: (Lantus) Insulin Glargine, Recombinant SC SCH (21:56)
[2018-06-23] MEDS: Albuterol-Ipratrop 3 mg / 0.5 (3 ml) UD INH SCH ×7 (00:45→23:36)
[2018-06-23 06:57] LABS: BASO # 0.1 K/uL (0.0-0.2); BASO % 0.8 % (0.0-2.0); EOS # 0.3 K/uL (0.0-0.7); EOS % 3.8 % (0.0-4.0); HEMOGLOBIN 9.4 g/dL (11.0-16.0); LYMPH # 1.8 K/uL (1.0-4.3); LYMPH % 27.1 % (20.0-40.0); MEAN CELL VOLUME 91.2 fL (81.0-99.0); MEAN CORPUSCULAR HEMOGLOBIN 29.8 pg (27.0-31.0); MEAN CORPUSCULAR HGB CONC 32.7 g/dL (33.0-37.0); MEAN PLATELET VOLUME 10.3 fL (7.2-11.7); MONO # 0.7 K/uL (0.0-0.8); MONO % 11.1 % (0.0-10.0); NEUT # 3.8 K/uL (1.8-7.0); NEUT % 57.2 % (50.0-75.0); NRBC % 0.1 % (0.0-2.0); RBC 3.16 Mil/uL (3.80-5.20); RED CELL DISTRIBUTION WIDTH 14.8 % (11.5-14.5); WHITE BLOOD COUNT 6.7 K/uL (4.8-10.8)
--- NOTE | 2018-06-23 07:28 | CP.PCM.PN ---
<Hardik Schreiber - Last Filed: 06/23/18 17:39> Subjective - Date & Time of Evaluation Date of Evaluation: 06/23/18 Time of Evaluation: 07:28 - Subjective Subjective: Progress Note for Hospitalist service (Dr. Knowles) Patient seen and examined at bedside. She is refusing VAN, stating she is not emotionally ready for procedure. She states she is going to eat breakfast. She states she feels short of breath, and she had to use nasal cannula overnight. She states she has had persistent right eye redness, but denies itching, pain, discharge. She had right eye ptergium surgery in January, she states that it has been persistently red since. She states her nose has been stuffy but has been using saline nasal spray for her symptoms. She denies fevers, chills, headache, chills, chest pain, palpitation, abdominal pain, nausea, vomiting, diarrhea, constipation, dysuria, leg pain, leg swelling. Objective - Vital Signs/Intake and Output Vital Signs (last 24 hours): Temp Pulse Resp BP Pulse Ox 98.0 F 87 20 139/67 93 L 06/23/18 00:00 06/23/18 00:00 06/23/18 00:00 06/23/18 00:00 06/23/18 00:00 - Medications Medications: Current Medications Acetaminophen (Tylenol 325mg Tab) 650 mg PO Q6 PRN PRN Reason: Fever >100.4 F Last Admin: 06/21/18 17:56 Dose: 650 mg Albuterol/Ipratropium (Duoneb 3 Mg/0.5 Mg (3 Ml) Ud) 3 ml INH RQ4 [facility] Last Admin: 06/23/18 04:31 Dose: Not Given Cinacalcet (Sensipar) 90 mg PO DAILY [facility] Last Admin: 06/22/18 09:48 Dose: 90 mg Clonidine HCl (Catapres) 0.2 mg PO BID [facility] Last Admin: 06/22/18 20:12 Dose: 0.2 mg Dextrose (Dextrose 50% Inj) 0 ml IV STAT PRN; Protocol PRN Reason: Hypoglycemia Protocol Dextrose (Glutose 15) 0 gm PO ONCE PRN; Protocol PRN Reason: Hypoglycemia Protocol Docusate Sodium (Colace) 100 mg PO BID [facility] Last Admin: 06/22/18 20:12 Dose: 100 mg Epoetin Dewey (Procrit) 4,000 unit IV MWF [facility] Last Admin: 06/20/18 12:15 Dose: 4,000 unit Glucagon (Glucagen Diagnostic Kit) 0 mg IM STAT PRN; Protocol PRN Reason: Hypoglycemia Protocol Dextrose (Dextrose 5% In Water 1000 Ml) 1,000 mls @ 0 mls/hr IV .Q0M PRN; Protocol PRN Reason: Hypoglycemia Protocol Nafcillin Sodium 2 gm/ Sodium (Chloride) 250 mls @ 250 mls/hr IVPB Q6H [facility]; Protocol Last Admin: 06/23/18 02:43 Dose: 250 mls/hr Insulin Aspart (Novolog) 4 unit SC ACLD [facility] Last Admin: 06/22/18 20:13 Dose: 4 units Insulin Glargine (Lantus) 6 unit SC HS [facility] Last Admin: 06/22/18 21:56 Dose: 6 units Insulin Human Regular (Novolin R) 0 unit SC ACHS [facility]; Protocol Last Admin: 06/22/18 21:56 Dose: Not Given Labetalol HCl (Trandate) 400 mg PO BID [facility] Last Admin: 06/22/18 20:14 Dose: 400 mg Lactobacillus Acidophilus (Lactobacillus) 1 cap PO BID [facility] Last Admin: 06/22/18 20:11 Dose: 1 cap Minoxidil (Loniten) 10 mg PO BID [facility] Last Admin: 06/22/18 20:13 Dose: 10 mg Pantoprazole Sodium (Protonix Ec Tab) 40 mg PO DAILY [facility] Last Admin: 06/22/18 09:49 Dose: 40 mg Pregabalin (Lyrica) 75 mg PO BID [facility] Last Admin: 06/22/18 20:12 Dose: 75 mg Sennosides (Senokot Tab) 8.6 mg PO DAILY [facility] Last Admin: 06/22/18 09:50 Dose: 8.6 mg Sevelamer Carbonate (Renvela) 1,600 mg PO TIDCC [facility] Last Admin: 06/22/18 20:11 Dose: 1,600 mg Sodium Chloride ([place] Baby Saline 30 Ml) 1 ml NEIL DAILY [facility] Last Admin: 06/22/18 10:00 Dose: 1 ml - Labs Labs: 06/23/18 06:47 06/22/18 08:12 PT 12.8 SECONDS (9.7-12.2) H 06/16/18 15:05 INR 1.2 06/16/18 15:05 APTT 33 SECONDS (21-34) 06/16/18 15:05 - Constitutional Appears: No Acute Distress, Chronically Ill - Head Exam Head Exam: ATRAUMATIC, NORMOCEPHALIC - Eye Exam Eye Exam: EOMI, PERRL Additional comments: Mild conjunctival erythema bilaterally, no purulent discharge. - ENT Exam ENT Exam: Mucous Membranes Moist - Neck Exam Neck Exam: Full ROM. absent: Tenderness - Respiratory Exam Respiratory Exam: Decreased Breath Sounds, NORMAL BREATHING PATTERN. absent: Rales, Rhonchi, Wheezes, Respiratory Distress, Stridor - Cardiovascular Exam Cardiovascular Exam: REGULAR RHYTHM, +S1, +S2. absent: Gallop, Rubs, Murmur - GI/Abdominal Exam GI & Abdominal Exam: Distended, Soft, Normal Bowel Sounds. absent: Firm, Guarding, Rigid, Tenderness, Organomegaly - Extremities Exam Extremities Exam: Normal Capillary Refill. absent: Calf Tenderness, Pedal Edema Additional comments: Right AV fistula with palpable thrill - Back Exam Back Exam: absent: CVA tenderness (L), CVA tenderness (R) - Neurological Exam Neurological Exam: Alert, Awake, Oriented x3 - Psychiatric Exam Psychiatric exam: Normal Affect, Normal Mood - Skin Skin Exam: Dry, Intact, Warm Assessment and Plan - Assessment and Plan (Free Text) Assessment: 43 year old female with history of ESRD on HD MWF, hypertension, Type 1 DM, history of CVA, GERD who presents for pnuemonia. Found to have Staph aureus bacteremia. Plan: Bilateral Pneumonia, resolved bandemia Staph aureus in clusters Bacteremia - CXR (06/16): Bilateral lower lobe pneumonia, more conspicuous on the right. - Repeated CXR 06/17 -Improving bilateral alveolar infiltrates - No leukocytosis, afebrile - Blood culture 06/16 positive for Staph aureus sensitive to vanc - final results - repeat blood cultures 06/18 staph aureus - repeat blood cultures from 06/20 prelim no growth after 3 days - Patient has received only two doses of vancomycin - Echo 06/18 - EF more than 70%, mild ventricular hypertrophy, mild to moderate pulm HTN, no signs of endocarditis or vegetations. - Current meds: * Nafcillin 2g IV Q6 started 06/20/18 * Duonebs Q4H for shortness of breath associated with PNA - ID consult - Dr Keenan - f/u recs - Cardiology Dr. Leon consulted, Initial plan for VAN this morning, however patient refused. Plan for VAN tomorrow morning. ESRD on HD MWF - Scheduled for HD today - Continue Sensipar 90mg PO Daily [facility] - Continue Sevelamer 1600mg TID[facility] - Dr Santiago/Marcus - Nephro consult - follow up recs - dialysis today, IV abx, consider VAN for repeat culture positive - fluid restriction Hyperkalemia K 6.0 today, f/u K Paresthesia/Neuropathic pain (Hands, Arm, Neck) - Improved - continue Lyrica 75 mg BID - Neurology consult - Dr Maguire help is appreciated - possible carpal tunnel syndrome, recommends outpatient EMG/NCS testing, continue Lyrica Erythema of right eye, s/p pterygium removal surgery 2017 - Received Ofloxacin Opht drops - 1 drop Q4H for two days duration prophylactic for conjunctivitis Thrombocytopenia - possibly secondary to ESRD - Platelets levels stable - Continue to monitor History of Hypertension - BP still elevated, asymptomatic - restarted BP meds * Labetolol 400 PO BID * Minoxidil 10mg PO BID * Clonidine 0.2mg PO BID - continue to monitor BP after dialysis History of Type 1 DM - Hemoglobin A1c 11/2017 - 5.9 - Accuchecks // Hypoglycemia Protocol - Renal/ Carb Consistent Diet - continue ISS- moderate - continue Novolog 4 Units AC, Lantus 6 Units HS Nausea, most likely due to complication of diabetes/poss gastroparesis - no reported nausea today - give anti-emetics as needed, watch for neurological side effects Mild epistaxis, most likely 2/2 to dryness of nasal fossa - off oxygen, used as needed, monitor O2 - [place] baby saline Qdaily Constipation - Senokot 1 tab PO daily - Colace 100mg PO BID - Fleet enema x1 ordered. - monitor for BM History of CVA - Continued Crestor 10mg PO QHS History of GERD - continue Protonix 40mg IVP daily Prophylaxis - Protonix 40mg IVP QD - SCDs - VTE contraindication - due to thrombocytopenia - NPO past midnight for VAN 06/24/[address] Eleni Schreiber, PGY1 <Jacek Knowles H - Last Filed: 06/23/18 18:38> Objective - Vital Signs/Intake and Output Vital Signs (last 24 hours): Temp Pulse Resp BP Pulse Ox 97.4 F L 84 18 137/70 95 06/23/18 18:00 06/23/18 18:00 06/23/18 18:00 06/23/18 18:00 06/23/18 18:00 - Medications Medications: Current Medications Acetaminophen (Tylenol 325mg Tab) 650 mg PO Q6 PRN PRN Reason: Fever >100.4 F Last Admin: 06/21/18 17:56 Dose: 650 mg Albuterol/Ipratropium (Duoneb 3 Mg/0.5 Mg (3 Ml) Ud) 3 ml INH RQ4 [facility] Last Admin: 06/23/18 16:42 Dose: Not Given Cinacalcet (Sensipar) 90 mg PO DAILY [facility] Last Admin: 06/23/18 12:37 Dose: Not Given Clonidine HCl (Catapres) 0.2 mg PO BID [facility] Last Admin: 06/23/18 18:34 Dose: 0.2 mg Dextrose (Dextrose 50% Inj) 0 ml IV STAT PRN; Protocol PRN Reason: Hypoglycemia Protocol Dextrose (Glutose 15) 0 gm PO ONCE PRN; Protocol PRN Reason: Hypoglycemia Protocol Docusate Sodium (Colace) 100 mg PO BID [facility] Last Admin: 06/23/18 18:34 Dose: 100 mg Epoetin Dewey (Procrit) 4,000 unit IV MWF [facility] Last Admin: 06/23/18 16:18 Dose: 4,000 unit Glucagon (Glucagen Diagnostic Kit) 0 mg IM STAT PRN; Protocol PRN Reason: Hypoglycemia Protocol Dextrose (Dextrose 5% In Water 1000 Ml) 1,000 mls @ 0 mls/hr IV .Q0M PRN; Protocol PRN Reason: Hypoglycemia Protocol Nafcillin Sodium 2 gm/ Sodium (Chloride) 250 mls @ 250 mls/hr IVPB Q6H [facility]; Protocol Last Admin: 06/23/18 16:02 Dose: Not Given Insulin Aspart (Novolog) 4 unit SC ACLD [facility] Last Admin: 06/23/18 17:53 Dose: Not Given Insulin Glargine (Lantus) 6 unit SC HS [facility] Last Admin: 06/22/18 21:56 Dose: 6 units Insulin Human Regular (Novolin R) 0 unit SC ACHS [facility]; Protocol Last Admin: 06/23/18 17:53 Dose: Not Given Labetalol HCl (Trandate) 400 mg PO BID [facility] Last Admin: 06/23/18 12:37 Dose: Not Given Lactobacillus Acidophilus (Lactobacillus) 1 cap PO BID [facility] Last Admin: 06/23/18 18:34 Dose: 1 cap Minoxidil (Loniten) 10 mg PO BID [facility] Last Admin: 06/23/18 12:35 Dose: Not Given Pantoprazole Sodium (Protonix Ec Tab) 40 mg PO DAILY [facility] Last Admin: 06/23/18 12:36 Dose: Not Given Pregabalin (Lyrica) 75 mg PO BID [facility] Last Admin: 06/23/18 18:35 Dose: 75 mg Sennosides (Senokot Tab) 8.6 mg PO DAILY [facility] Last Admin: 06/23/18 12:37 Dose: Not Given Sevelamer Carbonate (Renvela) 1,600 mg PO TIDCC [facility] Last Admin: 06/23/18 18:35 Dose: 1,600 mg Sodium Chloride ([place] Baby Saline 30 Ml) 1 ml NEIL DAILY [facility] Last Admin: 06/23/18 11:00 Dose: Not Given - Labs Labs: 06/23/18 06:47 06/23/18 06:47 PT 12.8 SECONDS (9.7-12.2) H 06/16/18 15:05 INR 1.2 06/16/18 15:05 APTT 33 SECONDS (21-34) 06/16/18 15:05 Attending/Attestation - Attestation I have personally seen and examined this patient.: Yes I have fully participated in the care of the patient.: Yes I have reviewed all pertinent clinical information, including history, physical exam and plan: Yes Notes (Text): 06/23/18 18:36 Medical attending: Patient was seen and examined by me. Agree with the above note by the resident The patient was not in any acute distress - however she refused to allow for the VAN this morning. We came and spoke to her about this and she frankly refused saying she would be willing to do this tommorow. We explained to her that refusing test can signifigantly lengthen the time she is in the hopsital as well as possibly lead to the delay of a potentially important diagnosis. I am not sure she appreciates our concern Reguardless she remains on the IV abx at this time. She had two previous blood cultures that were positive - since then the repeats have been negative Jacek Knowles
[2018-06-23 07:31] LABS: ALB/GLOB RATIO 1.1 (1.0-2.1); ALBUMIN 3.8 g/dL (3.5-5.0); CALCIUM 7.3 mg/dl (8.6-10.4)
[2018-06-23] MEDS ORDERED: EPOETIN ALFA 4,000 UNIT/ML ML Dialysis IV SCH (09:00)
[2018-06-23] MEDS: Sodium Chloride Nasal 0.65% Soln (30ml) NAS SCH (11:00)
--- NOTE | 2018-06-23 11:25 | CP.PCM.PN ---
Subjective - Date & Time of Evaluation Date of Evaluation: 06/23/18 Time of Evaluation: 11:22 - Subjective Subjective: elevated K noted- given kayexalate advised on diet for dialysis today afebrile on ABs VAN recommended Objective - Vital Signs/Intake and Output Vital Signs (last 24 hours): Temp Pulse Resp BP Pulse Ox 98 F 80 20 157/65 H 99 06/23/18 07:00 06/23/18 07:00 06/23/18 07:00 06/23/18 07:00 06/23/18 07:00 - Medications Medications: Current Medications Acetaminophen (Tylenol 325mg Tab) 650 mg PO Q6 PRN PRN Reason: Fever >100.4 F Last Admin: 06/21/18 17:56 Dose: 650 mg Albuterol/Ipratropium (Duoneb 3 Mg/0.5 Mg (3 Ml) Ud) 3 ml INH RQ4 [facility] Last Admin: 06/23/18 08:00 Dose: Not Given Cinacalcet (Sensipar) 90 mg PO DAILY [facility] Last Admin: 06/22/18 09:48 Dose: 90 mg Clonidine HCl (Catapres) 0.2 mg PO BID [facility] Last Admin: 06/22/18 20:12 Dose: 0.2 mg Dextrose (Dextrose 50% Inj) 0 ml IV STAT PRN; Protocol PRN Reason: Hypoglycemia Protocol Dextrose (Glutose 15) 0 gm PO ONCE PRN; Protocol PRN Reason: Hypoglycemia Protocol Docusate Sodium (Colace) 100 mg PO BID [facility] Last Admin: 06/22/18 20:12 Dose: 100 mg Epoetin Dewey (Procrit) 4,000 unit IV MWF [facility] Last Admin: 06/20/18 12:15 Dose: 4,000 unit Glucagon (Glucagen Diagnostic Kit) 0 mg IM STAT PRN; Protocol PRN Reason: Hypoglycemia Protocol Dextrose (Dextrose 5% In Water 1000 Ml) 1,000 mls @ 0 mls/hr IV .Q0M PRN; Protocol PRN Reason: Hypoglycemia Protocol Nafcillin Sodium 2 gm/ Sodium (Chloride) 250 mls @ 250 mls/hr IVPB Q6H [facility]; [facility] Last Admin: 06/23/18 02:43 Dose: 250 mls/hr Insulin Aspart (Novolog) 4 unit SC ACLD [facility] Last Admin: 06/22/18 20:13 Dose: 4 units Insulin Glargine (Lantus) 6 unit SC HS [facility] Last Admin: 06/22/18 21:56 Dose: 6 units Insulin Human Regular (Novolin R) 0 unit SC ACHS [facility]; Protocol Last Admin: 06/22/18 21:56 Dose: Not Given Labetalol HCl (Trandate) 400 mg PO BID [facility] Last Admin: 06/22/18 20:14 Dose: 400 mg Lactobacillus Acidophilus (Lactobacillus) 1 cap PO BID [facility] Last Admin: 06/22/18 20:11 Dose: 1 cap Minoxidil (Loniten) 10 mg PO BID [facility] Last Admin: 06/22/18 20:13 Dose: 10 mg Pantoprazole Sodium (Protonix Ec Tab) 40 mg PO DAILY [facility] Last Admin: 06/22/18 09:49 Dose: 40 mg Pregabalin (Lyrica) 75 mg PO BID [facility] Last Admin: 06/23/18 08:20 Dose: 75 mg Sennosides (Senokot Tab) 8.6 mg PO DAILY [facility] Last Admin: 06/22/18 09:50 Dose: 8.6 mg Sevelamer Carbonate (Renvela) 1,600 mg PO TIDCC [facility] Last Admin: 06/23/18 08:21 Dose: 1,600 mg Sodium Chloride ([place] Baby Saline 30 Ml) 1 ml NEIL DAILY [facility] Last Admin: 06/22/18 10:00 Dose: 1 ml - Labs Labs: 06/23/18 06:47 06/23/18 06:47 PT 12.8 SECONDS (9.7-12.2) H 06/16/18 15:05 INR 1.2 06/16/18 15:05 APTT 33 SECONDS (21-34) 06/16/18 15:05 - Constitutional Appears: No Acute Distress, Chronically Ill - Head Exam Head Exam: ATRAUMATIC, NORMAL INSPECTION - Eye Exam Eye Exam: EOMI, Normal appearance - Neck Exam Neck Exam: Normal Inspection. absent: Tenderness - Cardiovascular Exam Cardiovascular Exam: REGULAR RHYTHM, +S1 - GI/Abdominal Exam GI & Abdominal Exam: Soft. absent: Tenderness - Extremities Exam Extremities Exam: Normal Inspection. absent: Tenderness - Neurological Exam Neurological Exam: Awake, CN II-XII Intact - Skin Skin Exam: Dry, Warm Assessment and Plan (1) ESRD (end stage renal disease) on dialysis Status: Acute (2) Anemia Status: Acute (3) Bacteremia due to Gram-positive bacteria Status: Acute (4) Fluid overload Status: Acute - Assessment and Plan (Free Text) Plan: dialysis today IV ABs for recurrent bacteremia consider VAN advised on following low K diet
[2018-06-23] MEDS: (Novolog) Insulin Aspart, Recombinant 100 u/ml 10 ml vial SC SCH ×2 (12:32→17:53)
[2018-06-23] MEDS: Lactobacillus Acidophilus 500 MU Cap PO SCH ×2 (12:34→18:34)
[2018-06-23] MEDS: Pantoprazole 40 mg EC Tab PO SCH (12:36)
[2018-06-23] MEDS: (Novolin R) Insulin Human Regular 100 units/ml vial SC SCH ×3 (12:36→21:05)
[2018-06-23] MEDS: EPOETIN ALFA 4,000 UNIT/ML ML Dialysis IV SCH (16:18)
--- NOTE | 2018-06-23 18:03 | PN ---
DATE: 06/23/2018 SUBJECTIVE: The patient was scheduled for VAN this morning; however, despite my n.p.o. order, the patient was fed her breakfast and the VAN was then canceled. The patient denied any chest pain. PHYSICAL EXAMINATION: VITAL SIGNS: Blood pressure 157/65, heart rate 80, temperature 98, and respirations 20. HEENT: Pale conjunctivae. CHEST: Clear. HEART: S1 and S2 regular. EXTREMITIES: No edema. LABORATORY DATA: Hemoglobin and hematocrit 9.4 and 28.8. White count and platelet count are within normal limits. Today's potassium is 6 despite 60 g of Kayexalate given yesterday. ASSESSMENT: 1. Staphylococcus aureus bacteremia. 2. End-stage renal disease, on hemodialysis. 3. Hyperkalemia. 4. Hypertension. RECOMMENDATIONS: Continue clonidine 0.2 mg twice a day, continue lactobacillus, and continue IV nafcillin. The patient is scheduled for VAN tomorrow in the afternoon. The patient was instructed herself not to eat or drink after midnight. Rommel Leon MD
[2018-06-23] MEDS: (Lantus) Insulin Glargine, Recombinant SC SCH (21:22)
[2018-06-24 01:27] VITALS: RESP 20; TEMP 98.3
[2018-06-24] MEDS: Albuterol-Ipratrop 3 mg / 0.5 (3 ml) UD INH SCH ×4 (03:08→16:49)
[2018-06-24 06:39] LABS: BASO # 0.1 K/uL (0.0-0.2); BASO % 1.1 % (0.0-2.0); EOS # 0.3 K/uL (0.0-0.7); EOS % 4.3 % (0.0-4.0); HEMOGLOBIN 9.9 g/dL (11.0-16.0); LYMPH # 1.8 K/uL (1.0-4.3); LYMPH % 31.3 % (20.0-40.0); MEAN CELL VOLUME 90.8 fL (81.0-99.0); MEAN CORPUSCULAR HEMOGLOBIN 30.3 pg (27.0-31.0); MEAN CORPUSCULAR HGB CONC 33.4 g/dL (33.0-37.0); MEAN PLATELET VOLUME 10.4 fL (7.2-11.7); MONO # 0.6 K/uL (0.0-0.8); MONO % 9.6 % (0.0-10.0); NEUT # 3.2 K/uL (1.8-7.0); NEUT % 53.7 % (50.0-75.0); RBC 3.26 Mil/uL (3.80-5.20); RED CELL DISTRIBUTION WIDTH 15.4 % (11.5-14.5); WHITE BLOOD COUNT 5.9 K/uL (4.8-10.8)
--- NOTE | 2018-06-24 07:20 | CP.PCM.PN ---
Objective - Vital Signs/Intake and Output Vital Signs (last 24 hours): Temp Pulse Resp BP Pulse Ox 98.3 F 89 20 99/54 L 96 06/23/18 23:15 06/23/18 23:15 06/23/18 23:15 06/23/18 23:15 06/23/18 23:15 Intake and Output: 06/24/18 06/24/18 06:59 18:59 Intake Total 250 Balance 250 - Medications Medications: Current Medications Acetaminophen (Tylenol 325mg Tab) 650 mg PO Q6 PRN PRN Reason: Fever >100.4 F Last Admin: 06/21/18 17:56 Dose: 650 mg Albuterol/Ipratropium (Duoneb 3 Mg/0.5 Mg (3 Ml) Ud) 3 ml INH RQ4 [facility] Last Admin: 06/24/18 03:08 Dose: Not Given Cinacalcet (Sensipar) 90 mg PO DAILY [facility] Last Admin: 06/23/18 12:37 Dose: Not Given Clonidine HCl (Catapres) 0.2 mg PO BID [facility] Last Admin: 06/23/18 18:34 Dose: 0.2 mg Dextrose (Dextrose 50% Inj) 0 ml IV STAT PRN; Protocol PRN Reason: Hypoglycemia Protocol Dextrose (Glutose 15) 0 gm PO ONCE PRN; Protocol PRN Reason: Hypoglycemia Protocol Docusate Sodium (Colace) 100 mg PO BID [facility] Last Admin: 06/23/18 18:34 Dose: 100 mg Epoetin Dewey (Procrit) 4,000 unit IV MWF [facility] Last Admin: 06/23/18 16:18 Dose: 4,000 unit Glucagon (Glucagen Diagnostic Kit) 0 mg IM STAT PRN; Protocol PRN Reason: Hypoglycemia Protocol Dextrose (Dextrose 5% In Water 1000 Ml) 1,000 mls @ 0 mls/hr IV .Q0M PRN; Protocol PRN Reason: Hypoglycemia Protocol Nafcillin Sodium 2 gm/ Sodium (Chloride) 250 mls @ 250 mls/hr IVPB Q6H [facility]; Protocol Last Admin: 06/24/18 02:55 Dose: 250 mls/hr Insulin Aspart (Novolog) 4 unit SC ACLD [facility] Last Admin: 06/23/18 17:53 Dose: Not Given Insulin Glargine (Lantus) 6 unit SC HS [facility] Last Admin: 06/23/18 21:22 Dose: 6 units Insulin Human Regular (Novolin R) 0 unit SC ACHS [facility]; Protocol Last Admin: 06/23/18 21:05 Dose: Not Given Labetalol HCl (Trandate) 400 mg PO BID [facility] Last Admin: 06/23/18 18:37 Dose: 400 mg Lactobacillus Acidophilus (Lactobacillus) 1 cap PO BID [facility] Last Admin: 06/23/18 18:34 Dose: 1 cap Minoxidil (Loniten) 10 mg PO BID [facility] Last Admin: 06/23/18 18:37 Dose: 10 mg Pantoprazole Sodium (Protonix Ec Tab) 40 mg PO DAILY [facility] Last Admin: 06/23/18 12:36 Dose: Not Given Pregabalin (Lyrica) 75 mg PO BID [facility] Last Admin: 06/23/18 18:35 Dose: 75 mg Sennosides (Senokot Tab) 8.6 mg PO DAILY [facility] Last Admin: 06/23/18 12:37 Dose: Not Given Sevelamer Carbonate (Renvela) 1,600 mg PO TIDCC [facility] Last Admin: 06/23/18 18:35 Dose: 1,600 mg Sodium Chloride ([place] Baby Saline 30 Ml) 1 ml NEIL DAILY [facility] Last Admin: 06/23/18 11:00 Dose: Not Given - Labs Labs: 06/24/18 06:26 06/23/18 06:47 PT 12.8 SECONDS (9.7-12.2) H 06/16/18 15:05 INR 1.2 06/16/18 15:05 APTT 33 SECONDS (21-34) 06/16/18 15:05
[2018-06-24 07:25] LABS: ALBUMIN 3.6 g/dL (3.5-5.0); CALCIUM 7.5 mg/dl (8.6-10.4)
[2018-06-24] MEDS: (Novolin R) Insulin Human Regular 100 units/ml vial SC SCH ×3 (08:11→18:05)
[2018-06-24 08:15] VITALS: O2SAT 98
[2018-06-24] MEDS: Lactobacillus Acidophilus 500 MU Cap PO SCH ×3 (10:06→18:13)
[2018-06-24] MEDS: Pantoprazole 40 mg EC Tab PO SCH (10:07)
[2018-06-24] MEDS: Sodium Chloride Nasal 0.65% Soln (30ml) NAS SCH (10:07)
--- NOTE | 2018-06-24 10:46 | CP.PCM.PN ---
Subjective - Date & Time of Evaluation Date of Evaluation: 06/24/18 Time of Evaluation: 10:45 - Subjective Subjective: bp labile afebrile comfortable in bed ROS no fever chills no chest pain sob cough,no hemoptysis no abd pain,n,v,d anuric no headache Objective - Vital Signs/Intake and Output Vital Signs (last 24 hours): Temp Pulse Resp BP Pulse Ox 98.3 F 84 20 119/60 98 06/24/18 07:00 06/24/18 07:00 06/24/18 07:00 06/24/18 07:00 06/24/18 07:00 Intake and Output: 06/24/18 06/24/18 06:59 18:59 Intake Total 250 Balance 250 - Medications Medications: Current Medications Acetaminophen (Tylenol 325mg Tab) 650 mg PO Q6 PRN PRN Reason: Fever >100.4 F Last Admin: 06/21/18 17:56 Dose: 650 mg Albuterol/Ipratropium (Duoneb 3 Mg/0.5 Mg (3 Ml) Ud) 3 ml INH RQ4 [facility] Last Admin: 06/24/18 07:47 Dose: Not Given Cinacalcet (Sensipar) 90 mg PO DAILY [facility] Last Admin: 06/24/18 10:07 Dose: Not Given Clonidine HCl (Catapres) 0.2 mg PO BID [facility] Last Admin: 06/24/18 10:06 Dose: Not Given Dextrose (Dextrose 50% Inj) 0 ml IV STAT PRN; Protocol PRN Reason: Hypoglycemia Protocol Dextrose (Glutose 15) 0 gm PO ONCE PRN; Protocol PRN Reason: Hypoglycemia Protocol Docusate Sodium (Colace) 100 mg PO BID [facility] Last Admin: 06/24/18 10:06 Dose: Not Given Epoetin Dewey (Procrit) 4,000 unit IV MWF [facility] Last Admin: 06/23/18 16:18 Dose: 4,000 unit Glucagon (Glucagen Diagnostic Kit) 0 mg IM STAT PRN; Protocol PRN Reason: Hypoglycemia Protocol Dextrose (Dextrose 5% In Water 1000 Ml) 1,000 mls @ 0 mls/hr IV .Q0M PRN; Protocol PRN Reason: Hypoglycemia Protocol Nafcillin Sodium 2 gm/ Sodium (Chloride) 250 mls @ 250 mls/hr IVPB Q6H [facility]; Protocol Last Admin: 06/24/18 08:13 Dose: 250 mls/hr Insulin Aspart (Novolog) 4 unit SC ACLD [facility] Last Admin: 06/23/18 17:53 Dose: Not Given Insulin Glargine (Lantus) 6 unit SC HS [facility] Last Admin: 06/23/18 21:22 Dose: 6 units Insulin Human Regular (Novolin R) 0 unit SC ACHS [facility]; Protocol Last Admin: 06/24/18 08:11 Dose: 6 units Labetalol HCl (Trandate) 400 mg PO BID [facility] Last Admin: 06/24/18 10:07 Dose: Not Given Lactobacillus Acidophilus (Lactobacillus) 1 cap PO BID [facility] Last Admin: 06/24/18 10:06 Dose: Not Given Minoxidil (Loniten) 10 mg PO BID [facility] Last Admin: 06/24/18 10:06 Dose: Not Given Pantoprazole Sodium (Protonix Ec Tab) 40 mg PO DAILY [facility] Last Admin: 06/24/18 10:07 Dose: Not Given Pregabalin (Lyrica) 75 mg PO BID [facility] Last Admin: 06/24/18 10:06 Dose: Not Given Sennosides (Senokot Tab) 8.6 mg PO DAILY [facility] Last Admin: 06/24/18 10:07 Dose: Not Given Sevelamer Carbonate (Renvela) 1,600 mg PO TIDCC [facility] Last Admin: 06/24/18 08:20 Dose: Not Given Sodium Chloride ([place] Baby Saline 30 Ml) 1 ml NEIL DAILY [facility] Last Admin: 06/24/18 10:07 Dose: Not Given - Labs Labs: 06/24/18 06:26 06/24/18 06:26 PT 12.8 SECONDS (9.7-12.2) H 06/16/18 15:05 INR 1.2 06/16/18 15:05 APTT 33 SECONDS (21-34) 06/16/18 15:05 - Constitutional Appears: No Acute Distress - Eye Exam Eye Exam: Normal appearance - ENT Exam ENT Exam: Mucous Membranes Moist - Respiratory Exam Respiratory Exam: NORMAL BREATHING PATTERN Additional comments: coarse sounds,prolonged inpration and expiration - Cardiovascular Exam Cardiovascular Exam: REGULAR RHYTHM - GI/Abdominal Exam GI & Abdominal Exam: Soft. absent: Distended, Tenderness - Extremities Exam Extremities Exam: absent: Calf Tenderness - Back Exam Back Exam: absent: CVA tenderness (L), CVA tenderness (R) - Psychiatric Exam Psychiatric exam: Normal Affect - Skin Skin Exam: Dry, Warm Assessment and Plan (1) ESRD (end stage renal disease) on dialysis Status: Acute (2) Bacteremia due to Gram-positive bacteria Status: Acute (3) CHF (congestive heart failure) Status: Acute (4) Type 2 diabetes mellitus with diabetic nephropathy Status: Acute - Assessment and Plan (Free Text) Plan: await further ID eval considering mita schedule dialysis for 3/6 orders wriiten continue to ultrafiltrate
[2018-06-24] MEDS: (Novolog) Insulin Aspart, Recombinant 100 u/ml 10 ml vial SC SCH ×2 (11:45→18:05)
--- NOTE | 2018-06-24 17:19 | CP.PCM.DIS ---
<Guerrero Berry - Last Filed: 06/24/18 22:09> Provider - Provider Date of Admission: 06/18/18 15:48 Attending physician: Jacek Knowles DO Consults: 06/16/18 16:27 Nephrology Consult Routine Comment: Consulting Provider: Gerry Velazquez Consulting Physician: Gerry Velazquez Reason for Consult: ESRD; Dialysis MWF 06/17/18 14:26 Neurology Consult Routine Comment: Consulting Provider: Omar Maguire Consulting Physician: Omar Maguire Reason for Consult: Bilateral hand paresthesia refractory to medication 06/17/18 15:17 Infectious Disease Consult Routine Comment: Consulting Provider: Capo Keenan Consulting Physician: Capo Keenan Reason for Consult: PNA, gram + cocci in cluster on blood culture 06/21/18 12:10 Physician Consult Routine Comment: Consulting Provider: Rommel Leon Consulting Physician: Rommel Leon Reason for Consult: bacteremia,R/O Vegetation,VAN Time Spent in preparation of Discharge (in minutes): 180 Diagnosis - Discharge Diagnosis (1) Bacteremia due to Gram-positive bacteria Status: Acute (2) Pneumonia Status: Acute (3) HTN (hypertension) Status: Chronic Priority: Medium (4) Paresthesia and pain of both upper extremities Status: Chronic (5) ESRD (end stage renal disease) on dialysis Status: Chronic Priority: High (6) Corneal erythema of right eye Status: Acute (7) Diabetes type I Status: Chronic Priority: Medium Hospital Course - Lab Results Lab Results: Micro Results 06/20/18 05:48 Blood-During Dialysis Blood Culture - Preliminary NO GROWTH AFTER 4 DAYS 06/20/18 06:10 Blood-During Dialysis Blood Culture - Preliminary NO GROWTH AFTER 4 DAYS 06/18/18 18:00 Blood-Venous Blood Culture - Final Staphylococcus Aureus 06/18/18 18:00 Blood-Venous Gram Stain - Final 06/18/18 17:30 Blood-Venous S.aureus & Coag-Neg Staph PNA FISH - Final 06/18/18 17:30 Blood-Venous Blood Culture - Final Staphylococcus Aureus 06/18/18 17:30 Blood-Venous Gram Stain - Final 06/16/18 13:15 Blood Blood Culture - Final Staphylococcus Aureus 06/16/18 13:15 Blood Gram Stain - Final 06/16/18 13:30 Blood S.aureus & Coag-Neg Staph PNA FISH - Final 06/16/18 13:30 Blood Blood Culture - Final Staphylococcus Aureus 06/16/18 13:30 Blood Gram Stain - Final Most Recent Lab Values WBC 5.9 K/uL (4.8-10.8) 06/24/18 06:26 RBC 3.26 Mil/uL (3.80-5.20) L 06/24/18 06:26 Hgb 9.9 g/dL (11.0-16.0) L 06/24/18 06:26 Hct 29.6 % (34.0-47.0) L 06/24/18 06:26 MCV 90.8 fL (81.0-99.0) 06/24/18 06:26 MCH 30.3 pg (27.0-31.0) 06/24/18 06:26 MCHC 33.4 g/dL (33.0-37.0) 06/24/18 06:26 RDW 15.4 % (11.5-14.5) H 06/24/18 06:26 Plt Count 175 K/uL (130-400) 06/24/18 06:26 MPV 10.4 fL (7.2-11.7) 06/24/18 06:26 Neut % (Auto) 53.7 % (50.0-75.0) 06/24/18 06:26 Lymph % (Auto) 31.3 % (20.0-40.0) 06/24/18 06:26 Crane % (Auto) 9.6 % (0.0-10.0) 06/24/18 06:26 Eos % (Auto) 4.3 % (0.0-4.0) H 06/24/18 06:26 Baso % (Auto) 1.1 % (0.0-2.0) 06/24/18 06:26 Neut # (Auto) 3.2 K/uL (1.8-7.0) 06/24/18 06:26 Lymph # (Auto) 1.8 K/uL (1.0-4.3) 06/24/18 06:26 Crane # (Auto) 0.6 K/uL (0.0-0.8) 06/24/18 06:26 Eos # (Auto) 0.3 K/uL (0.0-0.7) 06/24/18 06:26 Baso # (Auto) 0.1 K/uL (0.0-0.2) 06/24/18 06:26 Neutrophils % (Manual) 64 % (50-75) 06/16/18 13:27 Band Neutrophils % 23 % (0-2) H* 06/16/18 13:27 Lymphocytes % (Manual) 2 % (20-40) L 06/16/18 13:27 Monocytes % (Manual) 10 % (0-10) 06/16/18 13:27 Eosinophils % (Manual) 1 % (0-4) 06/16/18 13:27 Differential Comment 06/17/18 08:11 Platelet Estimate Decreased (NORMAL) L 06/16/18 13:27 Hypochromasia (manual) Slight 06/16/18 13:27 Poikilocytosis (manual Slight 06/16/18 13:27 Anisocytosis (manual) Slight 06/16/18 13:27 Target Cells Slight 06/16/18 13:27 PT 12.8 SECONDS (9.7-12.2) H 06/16/18 15:05 INR 1.2 06/16/18 15:05 APTT 33 SECONDS (21-34) 06/16/18 15:05 pO2 33 mm/Hg (30-55) 06/16/18 14:10 VBG pH 7.42 (7.32-7.43) 06/16/18 14:10 VBG pCO2 47 mmHg (40-60) 06/16/18 14:10 VBG HCO3 28.0 mmol/L 06/16/18 14:10 VBG Total CO2 31.9 mmol/L (22-28) H 06/16/18 14:10 VBG O2 Sat (Calc) 64.7 % (40-65) 06/16/18 14:10 VBG Base Excess 5.1 mmol/L (0.0-2.0) H 06/16/18 14:10 VBG Potassium 4.8 mmol/L (3.6-5.2) 06/16/18 14:10 Sodium 136.0 mmol/l (132-148) 06/16/18 14:10 Chloride 96.0 mmol/L (98-107) L 06/16/18 14:10 Glucose 86 mg/dl (65-105) 06/16/18 14:10 Lactate 1.2 mmol/L (0.7-2.1) 06/16/18 14:10 Sodium 135 mmol/L (132-148) 06/24/18 06:26 Potassium 4.7 mmol/L (3.6-5.2) 06/24/18 06:26 Chloride 96 mmol/L (98-107) L 06/24/18 06:26 Carbon Dioxide 25 mmol/L (22-30) 06/24/18 06:26 Anion Gap 18 (10-20) 06/24/18 06:26 BUN 33 mg/dL (7-17) H 06/24/18 06:26 Creatinine 4.7 mg/dL (0.7-1.2) H 06/24/18 06:26 Est GFR ( Amer) 12 06/24/18 06:26 Est GFR (Non-Af Amer) 10 06/24/18 06:26 POC Glucose (mg/dL) 106 mg/dL (65-110) 06/23/18 16:13 Random Glucose 301 mg/dL (65-105) H D 06/24/18 06:26 Calcium 7.5 mg/dl (8.6-10.4) L 06/24/18 06:26 Phosphorus 4.1 mg/dL (2.5-4.5) 06/24/18 06:26 Magnesium 1.9 mg/dL (1.6-2.3) 06/24/18 06:26 Total Bilirubin 4.1 mg/dL (0.2-1.3) H 06/24/18 06:26 AST 32 U/L (14-36) 06/24/18 06:26 ALT 35 U/L (9-52) 06/24/18 06:26 Alkaline Phosphatase 277 U/L (38-126) H 06/24/18 06:26 Total Protein 7.1 g/dL (6.3-8.3) 06/24/18 06:26 Albumin 3.6 g/dL (3.5-5.0) 06/24/18 06:26 Globulin 3.5 gm/dL (2.2-3.9) 06/24/18 06:26 Albumin/Globulin Ratio 1.0 (1.0-2.1) 06/24/18 06:26 Beta HCG, Quant < 2.39 mIU/ML 06/24/18 06:26 Venous Blood Potassium 4.8 mmol/L (3.6-5.2) 06/16/18 14:10 Random Vancomycin 15.1 ug/mL 06/18/18 07:23 Influenza Typ A,B (EIA) Negative for flu a/b (NEGATIVE) 06/16/18 13:28 Mycoplasma pneumon IgG 1.77 (<=0.90) H 06/17/18 15:22 Mycoplasma pneumon IgM 285 U/mL (<770) 06/17/18 15:22 S.pneumoniae Type 1 IgG <0.3 06/17/18 15:22 S.pneumoniae Type 3 IgG 0.6 06/17/18 15:22 S.pneumoniae Type 4 IgG 0.3 06/17/18 15:22 S.pneumoniae Type 5 IgG 0.8 06/17/18 15:22 S.pneumoniae Type 8 IgG 2.5 06/17/18 15:22 S.pneumoniae Type 9 IgG <0.3 06/17/18 15:22 S.pneumoniae Typ 12 IgG 0.6 06/17/18 15:22 S.pneumoniae Typ 14 IgG 9.3 06/17/18 15:22 S.pneumonia Type 19 IgG 2.7 06/17/18 15:22 S.pneumonia Type 23 IgG 0.3 06/17/18 15:22 S.pneumoniae Typ 26 IgG 5.8 06/17/18 15:22 S.pneumoniae Typ 51 IgG 1.6 06/17/18 15:22 S.pneumoniae Typ 56 IgG 1.0 06/17/18 15:22 S.pneumoniae Typ 68 IgG 0.6 06/17/18 15:22 - Hospital Course Hospital Course: On admission: 43 year old female with past medical history as noted below presents to the ER for body aches. Patient states she has been having bilateral hand pain and tingling/numbness for the past month. Patient states her pain in her hands is a 10/10 pain and states the Lyrica has not been helping her pain. She states yesterday she felt like she had chills at home. She states one of her siblings has a cough at home but otherwise no one else is sick. Patient denies chest pain, shortness of breath, cough, fever, nausea or vomiting. On hospitalization: Patient admitted for Cxray findings of bilateral lower lobe PNA, more on the right with bands of 23. Blood cx on admission posiitve for Staph aureus/gram + cocci in cluster. ID Dr Keenan consulted. Influenza test negative. Patient initially given Zosyn and Vanc (after dialysis session MWF, recieved 2 doses), later switched to nafcillin. Repeat blood culture showed no growth. Cardio Dr Leon consulted, planned for VAN. Patient refused test for two consecutive days (06/23 and 06/24). Neuro Dr Maguire consulted for b/l paresthesia, pain in hands and wrist. Patient continued taking home lyrica with improved symptoms. Nephro Dr Velazquez consulted for hx of HD MWF, which patient continued having her session as scheduled. During hospitalization patient developed erythema of right eye, received ofloxacion opht drops for conuctivitis prophylaxis. Patient started on home meds, noticed to have hypotension during hospitalization, for which BP meds were held. Hx of DM type 1 managed with home lantus and novolog and ISS. Patient was placed on senokt and colace for constipation. DVT ppx with SCDs,, VTE c/i due to thrombocytopenia, GI ppx with protonix. On discharge: Patient is stable for discharge as per Dr Knowles, Patient is to take oral antibiotic ciprofloxacin 250 mg per mouth twice a day for 7 days. We are providing you with a prescription. Patient is to take the following medications for blood pressure: - Labetalol 200mg per mouth twice a day - Clonidine 0.1 mg per mouth twice a day - Minoxidil 10mg per mouth twice a day We are providing scripts for 30 day supply. Please follow up with your primary medical doctor regarding your blood pressure and medications Please make an appointment with your primary medical doctor as soon as you get discharge for follow up after hospitalization Patient is to continue taking home medications as indicated. We are providing you with prescription for home medication lyrica 75 mg per mouth twice a day, 30 day supply provided. Patient given a script for Quad cane for unsteady gait. Patient to attend her regular dialysis session tomorrow at her dialysis center, as her dialysis is MWF. If patient symptoms return or recur, please return to the ER immediately. This is a short summary of patient's hospitalization course. For more information, please refer to patient's EMR. - Date & Time of H&P Date of H&P: 06/16/18 Time of H&P: 16:21 Discharge Exam - Head Exam Head Exam: ATRAUMATIC, NORMOCEPHALIC - Eye Exam Eye Exam: EOMI - ENT Exam ENT Exam: Mucous Membranes Moist, Normal Exam - Neck Exam Neck exam: Full Rom, Normal Inspection - Respiratory Exam Respiratory Exam: NORMAL BREATHING PATTERN. absent: Rhonchi, Wheezes, Resp iratory Distress - Cardiovascular Exam Cardiovascular Exam: REGULAR RHYTHM, +S1, +S2 - GI/Abdominal Exam GI & Abdominal Exam: Distended, Normal Bowel Sounds, Soft, Unremarkable. absent: Tenderness - Extremities Exam Extremities exam: full ROM Additional comments: Rt AV fistula with palpable thrill - Neurological Exam Neurological exam: Alert, Oriented x3 - Psychiatric Exam Psychiatric exam: Normal Affect, Normal Mood - Skin Skin Exam: Dry, Normal Color, Warm Discharge Plan - Discharge Medications Prescriptions: Ciprofloxacin [Cipro] 250 mg PO BID 7 Days #14 tab cloNIDine [Catapres] 0.1 mg PO BID 30 Days #60 tab Labetalol [Trandate] 200 mg PO BID 30 Days #60 tab Minoxidil [Loniten] 10 mg PO BID 30 Days #60 tab Pregabalin [Lyrica] 75 mg PO BID #60 cap - Follow Up Plan Condition: STABLE Disposition: HOME/ ROUTINE Instructions: Ciprofloxacin (Systemic), Heart Failure, Adult (DC), Minoxidil (Systemic), Pneumonia, Adult (DC), Pregabalin, Clonidine, Labetalol, End Stage Kidney Disease (DC), Dialysis and Diet Additional Instructions: Patient is stable for discharge as per Dr Knowles Patient is to take oral antibiotic ciprofloxacin 250 mg per mouth twice a day for 7 days. We are providing you with a prescription. Patient is to take the following medications for blood pressure: - Labetalol 200mg per mouth twice a day - Clonidine 0.1 mg per mouth twice a day - Minoxidil 10mg per mouth twice a day we are providing scripts for 30 day supply. Please follow up with your primary medical doctor regarding your blood pressure and medications Please make an appointment with your primary medical doctor as soon as you get discharge for follow up after hospitalization Patient is to continue taking home medications as indicated. We are providing you with prescription for home medication lyrica 75 mg per mouth twice a day, 30 day supply provided. Patient to attend her regular dialysis session tomorrow at her dialysis center, as her dialysis is MWF. If patient symptoms return or recur, please return to the ER immediately. Referrals: [facility] at [facility] [Outside] <Jacek Knowles - Last Filed: 06/25/18 07:34> Provider - Provider Date of Admission: 06/18/18 15:48 Attending physician: Jacek Knowles DO Consults: 06/16/18 16:27 Nephrology Consult Routine Comment: Consulting Provider: Gerry Velazquez Consulting Physician: Gerry Velazquez Reason for Consult: ESRD; Dialysis MWF 06/17/18 14:26 Neurology Consult Routine Comment: Consulting Provider: Omar Maguire Consulting Physician: Omar Maguire Reason for Consult: Bilateral hand paresthesia refractory to medication 06/17/18 15:17 Infectious Disease Consult Routine Comment: Consulting Provider: Capo Keenan Consulting Physician: Capo Keenan Reason for Consult: PNA, gram + cocci in cluster on blood culture 06/21/18 12:10 Physician Consult Routine Comment: Consulting Provider: Rommel Leon Consulting Physician: Rommel Leon Reason for Consult: bacteremia,R/O Vegetation,VAN Hospital Course - Lab Results Lab Results: Micro Results 06/20/18 05:48 Blood-During Dialysis Blood Culture - Final NO GROWTH AFTER 5 DAYS 06/20/18 05:48 Blood-During Dialysis Gram Stain - Final TEST NOT PERFORMED 06/20/18 06:10 Blood-During Dialysis Blood Culture - Final NO GROWTH AFTER 5 DAYS 06/20/18 06:10 Blood-During Dialysis Gram Stain - Final TEST NOT PERFORMED 06/18/18 18:00 Blood-Venous Blood Culture - Final Staphylococcus Aureus 06/18/18 18:00 Blood-Venous Gram Stain - Final 06/18/18 17:30 Blood-Venous S.aureus & Coag-Neg Staph PNA FISH - Final 06/18/18 17:30 Blood-Venous Blood Culture - Final Staphylococcus Aureus 06/18/18 17:30 Blood-Venous Gram Stain - Final 06/16/18 13:15 Blood Blood Culture - Final Staphylococcus Aureus 06/16/18 13:15 Blood Gram Stain - Final 06/16/18 13:30 Blood S.aureus & Coag-Neg Staph PNA FISH - Final 06/16/18 13:30 Blood Blood Culture - Final Staphylococcus Aureus 06/16/18 13:30 Blood Gram Stain - Final Most Recent Lab Values WBC 5.9 K/uL (4.8-10.8) 06/24/18 06:26 RBC 3.26 Mil/uL (3.80-5.20) L 06/24/18 06:26 Hgb 9.9 g/dL (11.0-16.0) L 06/24/18 06:26 Hct 29.6 % (34.0-47.0) L 06/24/18 06:26 MCV 90.8 fL (81.0-99.0) 06/24/18 06:26 MCH 30.3 pg (27.0-31.0) 06/24/18 06:26 MCHC 33.4 g/dL (33.0-37.0) 06/24/18 06:26 RDW 15.4 % (11.5-14.5) H 06/24/18 06:26 Plt Count 175 K/uL (130-400) 06/24/18 06:26 MPV 10.4 fL (7.2-11.7) 06/24/18 06:26 Neut % (Auto) 53.7 % (50.0-75.0) 06/24/18 06:26 Lymph % (Auto) 31.3 % (20.0-40.0) 06/24/18 06:26 Crane % (Auto) 9.6 % (0.0-10.0) 06/24/18 06:26 Eos % (Auto) 4.3 % (0.0-4.0) H 06/24/18 06:26 Baso % (Auto) 1.1 % (0.0-2.0) 06/24/18 06:26 Neut # (Auto) 3.2 K/uL (1.8-7.0) 06/24/18 06:26 Lymph # (Auto) 1.8 K/uL (1.0-4.3) 06/24/18 06:26 Crane # (Auto) 0.6 K/uL (0.0-0.8) 06/24/18 06:26 Eos # (Auto) 0.3 K/uL (0.0-0.7) 06/24/18 06:26 Baso # (Auto) 0.1 K/uL (0.0-0.2) 06/24/18 06:26 Neutrophils % (Manual) 64 % (50-75) 06/16/18 13:27 Band Neutrophils % 23 % (0-2) H* 06/16/18 13:27 Lymphocytes % (Manual) 2 % (20-40) L 06/16/18 13:27 Monocytes % (Manual) 10 % (0-10) 06/16/18 13:27 Eosinophils % (Manual) 1 % (0-4) 06/16/18 13:27 Differential Comment 06/17/18 08:11 Platelet Estimate Decreased (NORMAL) L 06/16/18 13:27 Hypochromasia (manual) Slight 06/16/18 13:27 Poikilocytosis (manual Slight 06/16/18 13:27 Anisocytosis (manual) Slight 06/16/18 13:27 Target Cells Slight 06/16/18 13:27 PT 12.8 SECONDS (9.7-12.2) H 06/16/18 15:05 INR 1.2 06/16/18 15:05 APTT 33 SECONDS (21-34) 06/16/18 15:05 pO2 33 mm/Hg (30-55) 06/16/18 14:10 VBG pH 7.42 (7.32-7.43) 06/16/18 14:10 VBG pCO2 47 mmHg (40-60) 06/16/18 14:10 VBG HCO3 28.0 mmol/L 06/16/18 14:10 VBG Total CO2 31.9 mmol/L (22-28) H 06/16/18 14:10 VBG O2 Sat (Calc) 64.7 % (40-65) 06/16/18 14:10 VBG Base Excess 5.1 mmol/L (0.0-2.0) H 06/16/18 14:10 VBG Potassium 4.8 mmol/L (3.6-5.2) 06/16/18 14:10 Sodium 136.0 mmol/l (132-148) 06/16/18 14:10 Chloride 96.0 mmol/L (98-107) L 06/16/18 14:10 Glucose 86 mg/dl (65-105) 06/16/18 14:10 Lactate 1.2 mmol/L (0.7-2.1) 06/16/18 14:10 Sodium 135 mmol/L (132-148) 06/24/18 06:26 Potassium 4.7 mmol/L (3.6-5.2) 06/24/18 06:26 Chloride 96 mmol/L (98-107) L 06/24/18 06:26 Carbon Dioxide 25 mmol/L (22-30) 06/24/18 06:26 Anion Gap 18 (10-20) 06/24/18 06:26 BUN 33 mg/dL (7-17) H 06/24/18 06:26 Creatinine 4.7 mg/dL (0.7-1.2) H 06/24/18 06:26 Est GFR ( Amer) 12 06/24/18 06:26 Est GFR (Non-Af Amer) 10 06/24/18 06:26 POC Glucose (mg/dL) 234 mg/dL (65-110) H 06/24/18 16:46 Random Glucose 301 mg/dL (65-105) H D 06/24/18 06:26 Calcium 7.5 mg/dl (8.6-10.4) L 06/24/18 06:26 Phosphorus 4.1 mg/dL (2.5-4.5) 06/24/18 06:26 Magnesium 1.9 mg/dL (1.6-2.3) 06/24/18 06:26 Total Bilirubin 4.1 mg/dL (0.2-1.3) H 06/24/18 06:26 AST 32 U/L (14-36) 06/24/18 06:26 ALT 35 U/L (9-52) 06/24/18 06:26 Alkaline Phosphatase 277 U/L (38-126) H 06/24/18 06:26 Total Protein 7.1 g/dL (6.3-8.3) 06/24/18 06:26 Albumin 3.6 g/dL (3.5-5.0) 06/24/18 06:26 Globulin 3.5 gm/dL (2.2-3.9) 06/24/18 06:26 Albumin/Globulin Ratio 1.0 (1.0-2.1) 06/24/18 06:26 Beta HCG, Quant < 2.39 mIU/ML 06/24/18 06:26 Venous Blood Potassium 4.8 mmol/L (3.6-5.2) 06/16/18 14:10 Random Vancomycin 15.1 ug/mL 06/18/18 07:23 Influenza Typ A,B (EIA) Negative for flu a/b (NEGATIVE) 06/16/18 13:28 Mycoplasma pneumon IgG 1.77 (<=0.90) H 06/17/18 15:22 Mycoplasma pneumon IgM 285 U/mL (<770) 06/17/18 15:22 S.pneumoniae Type 1 IgG <0.3 06/17/18 15:22 S.pneumoniae Type 3 IgG 0.6 06/17/18 15:22 S.pneumoniae Type 4 IgG 0.3 06/17/18 15:22 S.pneumoniae Type 5 IgG 0.8 06/17/18 15:22 S.pneumoniae Type 8 IgG 2.5 06/17/18 15:22 S.pneumoniae Type 9 IgG <0.3 06/17/18 15:22 S.pneumoniae Typ 12 IgG 0.6 06/17/18 15:22 S.pneumoniae Typ 14 IgG 9.3 06/17/18 15:22 S.pneumonia Type 19 IgG 2.7 06/17/18 15:22 S.pneumonia Type 23 IgG 0.3 06/17/18 15:22 S.pneumoniae Typ 26 IgG 5.8 06/17/18 15:22 S.pneumoniae Typ 51 IgG 1.6 06/17/18 15:22 S.pneumoniae Typ 56 IgG 1.0 06/17/18 15:22 S.pneumoniae Typ 68 IgG 0.6 06/17/18 15:22 Attending/Attestation - Attestation I have personally seen and examined this patient.: Yes I have fully participated in the care of the patient.: Yes I have reviewed all pertinent clinical information, including history, physical exam and plan: Yes Notes (Text): 06/25/18 07:29 Medical attending: Patient was seen and examined by me with the bacteriologist medical. The note was sent to me later at night and so I am signing it today. I reviewed the above note by the resident and agree with the above. The patient was repeatedly refusing to have the VAN on Saturday and then when we spoke with her again on two occasions on Saturday she said she did not want to do the VAN because she felt fine and saw no need for it. We again reviewed with the patient that previous week she had positive cultures in the blood and the reason for the VAN was to check for potential heart valve damage. She explained she felt fine and did not want VAN We used very simple language when speaking with the patient Patient will have oral abx that she needs to take as well as continue with HD at [facility] in [facility]. Jacek Knowles
[2018-06-24 18:11] VITALS: BP 147/63; PULSE 92
--- NOTE | 2018-06-24 20:16 | PN ---
DATE: 06/24/2018 SUBJECTIVE: The patient refused to go for VAN procedure today, and she decided to eat. The patient cited the fact that she is afraid of the procedure and when the patient was offered to have the VAN first thing in the morning to avoid having the procedure, she still declined the procedure. PHYSICAL EXAMINATION: VITAL SIGNS: Blood pressure 119/60, heart rate 84, temperature 98.3, and respirations 20. HEENT: Pale conjunctivae. CHEST: Clear. HEART: S1 and S2 regular. EXTREMITIES: Trace edema. LABORATORY DATA: Hemoglobin and hematocrit are 9.9 and 29.6. White count and platelet count are within normal limits. Today's SMA-7 showed sodium 135, potassium 4.7, chloride 96, CO2 of 25, glucose 301, BUN 33, creatinine 4.7. ASSESSMENT: 1. Staphylococcus aureus bacteremia. 2. End-stage renal disease, on hemodialysis. 3. Hypertension. RECOMMENDATIONS: Continue current clonidine 0.2 mg twice a day, Colace 100 mg twice a day, albuterol inhaler, lactobacillus one tablet twice a day, Protonix 40 mg p.o. once a day, Labetalol 400 mg twice a day. Please consult me again if the patient agrees to undergo transesophageal echocardiographic procedure. Rommel Leon MD
== END 2018-06-24 19:44 | disposition home health service (06) | DRG 193 ==
LOC: C.ER 12:40 → C.9E 15:42 → C.3T 16:44 → C.9E 17:32 → C.6T 18:41 → OBSVTOIN 06-18 15:48 → C.6T 06-23 09:17
PROVIDERS: ADMIT Hospitalist; ATTEND Hospitalist
PROC: 5A1D70Z Performance of Urinary Filtration, Intermittent, Less than 6 Hours Per Day (ICD-10-PCS; principal; 2018-06-18)
PROC: 5A1D70Z Performance of Urinary Filtration, Intermittent, Less than 6 Hours Per Day (ICD-10-PCS; 2018-06-20)
PROC: 5A1D70Z Performance of Urinary Filtration, Intermittent, Less than 6 Hours Per Day (ICD-10-PCS; 2018-06-23)
DX: J15.4 Pneumonia due to other streptococci (principal); N18.6 End stage renal disease; I13.2 Hypertensive heart and chronic kidney disease with heart failure and with stage 5 chronic kidney disease, or end stage renal disease; J44.0 Chronic obstructive pulmonary disease with (acute) lower respiratory infection; R78.81 Bacteremia; B95.61 Methicillin susceptible Staphylococcus aureus infection as the cause of diseases classified elsewhere; E10.22 Type 1 diabetes mellitus with diabetic chronic kidney disease; E10.21 Type 1 diabetes mellitus with diabetic nephropathy; I27.20 Pulmonary hypertension, unspecified; I50.9 Heart failure, unspecified; E10.40 Type 1 diabetes mellitus with diabetic neuropathy, unspecified; G56.00 Carpal tunnel syndrome, unspecified upper limb; E87.5 Hyperkalemia; E10.319 Type 1 diabetes mellitus with unspecified diabetic retinopathy without macular edema; D69.59 Other secondary thrombocytopenia; D64.9 Anemia, unspecified; H18.891 Other specified disorders of cornea, right eye; K21.9 Gastro-esophageal reflux disease without esophagitis; R04.0 Epistaxis; K59.00 Constipation, unspecified; Z53.29 Procedure and treatment not carried out because of patient's decision for other reasons; Z99.2 Dependence on renal dialysis; Z79.4 Long term (current) use of insulin; Z87.01 Personal history of pneumonia (recurrent); Z86.73 Personal history of transient ischemic attack (TIA), and cerebral infarction without residual deficits; Z87.891 Personal history of nicotine dependence; Z87.81 Personal history of (healed) traumatic fracture; Z98.42 Cataract extraction status, left eye; Z98.41 Cataract extraction status, right eye

== ENCOUNTER 2018-07-02 23:30 | Emergency (ER) | payer MEDICARE, OTHER ==
[2018-07-02 23:31] VITALS: BMI 22.4
[2018-07-03 05:56] VITALS: BP 116/47; PULSE 71; RESP 18; TEMP 99
[2018-07-03 05:57] VITALS: O2SAT 95
== END 2018-07-03 06:18 | disposition home or self-care (01) ==
LOC: C.ER 23:30
DX: M51.26 Other intervertebral disc displacement, lumbar region (principal)
CPT/HCPCS: 72131; 84702; 96372; 96374; 99285; J2270

== ENCOUNTER 2018-07-03 09:27 | Emergency (ER) | payer OTHER, MEDICARE | END 2018-07-03 13:05 | disposition home or self-care (01) | LOC: C.ER 09:27 ==

== ENCOUNTER 2018-07-23 17:08 | Inpatient (IN) | payer MEDICARE, OTHER ==
[2018-07-23 17:09] VITALS: BMI 21.2
[2018-07-23 18:43] LABS: EOS # 0.2 K/uL (0.0-0.7); MEAN CORPUSCULAR HEMOGLOBIN 30.9 pg (27.0-31.0); NRBC % 0.1 % (0.0-2.0); WHITE BLOOD COUNT 6.5 K/uL (4.8-10.8)
[2018-07-23 18:51] LABS: BASO % 0.4 % (0.0-2.0); EOS % 2.8 % (0.0-4.0); HEMOGLOBIN 8.1 g/dL (11.0-16.0); LYMPH # 1.4 K/uL (1.0-4.3); MEAN CELL VOLUME 93.2 fL (81.0-99.0); MEAN CORPUSCULAR HGB CONC 33.2 g/dL (33.0-37.0); MEAN PLATELET VOLUME 11.5 fL (7.2-11.7); MONO # 0.6 K/uL (0.0-0.8); MONO % 8.6 % (0.0-10.0); NEUT # 4.3 K/uL (1.8-7.0); NEUT % 66.2 % (50.0-75.0); RBC 2.63 Mil/uL (3.80-5.20); RED CELL DISTRIBUTION WIDTH 13.9 % (11.5-14.5)
[2018-07-23 19:10] LABS: B-TYPE NATRIURETIC PEPTIDE 16800 pg/mL (0-450)
[2018-07-23 19:23] LABS: ALB/GLOB RATIO 1.2 (1.0-2.1); ALBUMIN 4.1 g/dL (3.5-5.0); ALT/SGPT 10 U/L (9-52); AST/SGOT 22 U/L (14-36); BLOOD UREA NITROGEN 51 mg/dL (7-17); CALCIUM 9.6 mg/dl (8.6-10.4); GFR NON-AFRICAN AMERICAN 5
--- NOTE | 2018-07-23 20:23 | C.PDOC ---
History Of Present Illness 43 y/o female presents to the ER complaining of cramping abdominal pain and malaise which has been present for the past 2 days. This is contrary to triage which states that patient has symptoms for the past 4 days. Patient states that she has dialysis on Mondays, Wednesdays, and Fridays. She notes that she is not taking Vicodin and Valium which she was prescribed for pain.Denies having fever,chills, nausea, vomiting, diarrhea. Time Seen by Provider: 07/23/18 18:08 Chief Complaint (Nursing): GI Problem History Per: Patient History/Exam Limitations: no limitations Onset/Duration Of Symptoms: Days Current Symptoms Are (Timing): Still Present Severity: Moderate Past Medical History Reviewed: Historical Data, Nursing Documentation, Vital Signs Vital Signs: Last Vital Signs Temp 98.3 F 07/23/18 17:42 Pulse 102 H 07/23/18 17:42 Resp 19 07/23/18 17:42 BP 144/55 L 07/23/18 17:42 Pulse Ox 99 07/23/18 17:42 - Medical History PMH: Anemia, Anxiety, COPD, Depression, Diabetes (Type 1 ), Fractures (RT ANKLE), GERD, HTN, Pneumonia, End Stage Renal Disease, Chronic Kidney Disease, Seizures (2008), TIA Denies: Kidney Stones Other Surgeries: Hx of surgeries - [facility] Procedures (06/18/18) DILATION OF R BASILIC VEIN WITH INTRALUM DEV, PERC APPROACH (07/13/16) DILATION OF RIGHT BASILIC VEIN, PERCUTANEOUS APPROACH (05/03/17) DILATION OF UPPER ARTERY, PERCUTANEOUS APPROACH (07/24/17) EXTIRPATION OF MATTER FROM RIGHT BASILIC VEIN, PERC APPROACH (07/13/16) FLUOROSCOPY OF INF VENA CAVA USING L OSM CONTRAST, GUIDANCE (05/29/16) INDIVIDUAL PSYCHOTHERAPY, COGNITIVE-BEHAVIORAL (10/23/16) INDIVIDUAL PSYCHOTHERAPY, SUPPORTIVE (10/23/16) INSERTION OF INFUSION DEV INTO INF VENA CAVA, PERC APPROACH (05/29/16) INSERTION OF INFUSION DEV INTO SUP VENA CAVA, PERC APPROACH (07/13/16) INSERTION OF INFUSION DEVICE INTO LOWER VEIN, PERC APPROACH (07/24/17) INTRODUCE OTH THROMBOLYTIC IN PERIPH VEIN, PERC (07/13/16) PERFORMANCE OF URINARY FILTRATION, MULTIPLE (01/03/17) REMOVAL OF OTHER DEVICE ON RIGHT INGUINAL REGION (05/29/16) ULTRASONOGRAPHY OF INFERIOR VENA CAVA, GUIDANCE (07/13/16) Family History: States: No Known Family Hx - Social History Hx Tobacco Use: Yes Hx Alcohol Use: No Hx Substance Use: No - Immunization History Hx Tetanus Toxoid Vaccination: No Hx Influenza Vaccination: Yes Hx Pneumococcal Vaccination: Yes Review Of Systems Except As Marked, All Systems Reviewed And Found Negative. Constitutional: Positive for: Malaise. Negative for: Fever, Chills Gastrointestinal: Positive for: Abdominal Pain. Negative for: Nausea, Vomiting, Diarrhea Physical Exam - Physical Exam Appears: No Acute Distress Skin: Normal Color, Warm, Dry Head: Atraumatic, Normacephalic Eye(s): bilateral: EOMI, Other (puffy eyelids) Nose: Normal Oral Mucosa: Moist Throat: Normal, No Erythema, No Exudate Neck: Supple Chest: Symmetrical Cardiovascular: Rhythm Regular Respiratory: Normal Breath Sounds, No Rales, No Rhonchi, No Wheezing Gastrointestinal/Abdominal: Soft, No Tenderness, No Guarding, No Rebound, Other (tympanic to percussion and dull in RLQ and LLQ) Neurological/Psych: Oriented x3, Normal Speech ED Course And Treatment - Laboratory Results Result Diagrams: 07/23/18 18:39 07/23/18 18:39 Lab Results: Troponin I < 0.0120 ng/mL (0.00-0.120) 07/23/18 18:39 NT-Pro-B Natriuret Pep 43601 pg/mL (0-450) H 07/23/18 18:39 Total Bilirubin 0.9 mg/dL (0.2-1.3) 07/23/18 18:39 AST 22 U/L (14-36) 07/23/18 18:39 ALT 10 U/L (9-52) 07/23/18 18:39 Alkaline Phosphatase 120 U/L (38-126) 07/23/18 18:39 Total Protein 7.6 g/dL (6.3-8.3) 07/23/18 18:39 Albumin 4.1 g/dL (3.5-5.0) 07/23/18 18:39 Globulin 3.4 gm/dL (2.2-3.9) 07/23/18 18:39 Albumin/Globulin Ratio 1.2 (1.0-2.1) 07/23/18 18:39 Beta HCG, Quant < 2.39 mIU/ML 07/23/18 18:39 Lab Interpretation: Abnormal (c/w ESRD on HD, QHCG neg) Urine POC: Negative O2 Sat by Pulse Oximetry: 99 (RA) Pulse Ox Interpretation: Normal - Radiology CXR: Interpreted by Me CXR Interpretation: Yes: No Acute Disease - Other Rad abd x 2 X-Ray: Interpreted by Me (+ increased stool/gas) Reevaluation Time: 21:04 Reassessment Condition: Unchanged (remains comfortable, NAD) - Physician Consult Information Outcome Of Conversation: 2029: d/w Dr. Velazquez- pt's Professor Of Communication. labs reviewed. ok to d/c home with f/u for tomorrow's HD. 2119: d/w Dr. Piedra, Hospitalist, ok to admit pending HD in AM Medical Decision Making Medical Decision Making: Plan: --Labs --UA --X-Ray- Obs. Series acute on chronic constipation, prob due to chronic narcotics use and limited mobility/bedridden state. ESRD, M/W/F (today Sat) ok for f/u HD tomorrow per Dr. Velazquez 2109: Dr. Santiago called, returning pt's call to [facility], prefers pt Adm overnight for HD in AM and [facility] to consult 2114: d/w Dr Velazquez, will consult in AM Disposition Doctor Will See Patient In The: Hospital Counseled Patient/Family Regarding: Studies Performed, Diagnosis - Disposition Disposition: HOSPITALIZED Disposition Time: 21:06 Condition: GOOD Forms: [employer] ([employer]) - Clinical Impression Clinical Impression: Abdominal pain, colicky, ESRD (end stage renal disease) on dialysis - Scribe Statement The provider has reviewed the documentation as recorded by the Scribe Shay Mckeon Provider Attestation: All medical record entries made by the Scribe were at my direction and personally dictated by me. I have reviewed the chart and agree that the record accurately reflects my personal performance of the history, physical exam, medical decision making, and the department course for this patient. I have also personally directed, reviewed, and agree with the discharge instructions and disposition.
--- NOTE | 2018-07-23 21:29 | CP.PCM.HP ---
<Preethi Baxter P - Last Filed: 07/24/18 06:22> History of Present Illness - History of Present Illness History of Present Illness: H&P for Dr. Piedra. 43 year old female with past medical history of DM1, HTN, ESRD on dialysis MWF, Hx of CVA presents to ED for 3-4 days of diarrhea. Patient states there has been 3-5 episodes of non-bloody diarrhea per day. Associated with intermittent 5/10 cramping abdominal pain. Symptoms worsen with eating. Patient also complains of chills, bodyaches, palpitations, slight lightheadedness with sitting up, and malaise. She has been eating crackers and drinking fluids. Patient states she missed her dialysis session today due to the pain and diarrhea. Patient denies fever, chest pain, shortness of breath, nausea, vomiting, constipation, hematemesis, hematochezia. Past Medical History: DM1, HTN, ESRD on dialysis MWF, Hx of CVA Past Surgical History: B/l cataracts, R. retina surgery, AV shunt in R. arm, Embolectomy from R. LE, AV fistula left UE collapsed. Family History: Mother - DM/ESRD; Dad - Heart problems, prostate cancer Medications: Novolog 4 units before meals, Lantus 6 units HS, Labetolol 300 mg PO BID, Minoxidil 10 mg PO BID, Clonidine 0.2 mg PO BID, Lyrica 75mg PO HS, Sensipar 90 mg daily, Renvela 3 tabs TID, Nexium 40 mg daily Allergies: NKDA Social History: denies alcohol, smoking, or illicit drug use; lives with father and 2 siblings PMD: Dr. Holloway Nephrology: Dr. Velazquez Review of Systems: -Gen: No fever, + chills, No headache, +malaise, No weakness. -HEENT: +lightheadedness, No change in vision, No change in hearing, No sore throat, No dysphagia, No nasal congestion, No mucous. -Cardio: No chest pain, + palpitations, No lower extremity edema, No orthopnea. -Resp: No cough, No dyspnea, No hemoptysis, No wheezing, No pain on inspiration. -GI: + abdominal pain, No nausea/vomiting, + diarrhea, No hematochezia, No hematemesis. -: No dysuria, No urinary freq, No incontinence, No hematuria, No change in urinary stream. -MSK: No back pain, No muscle weakness, No radiating pain. -Skin: No itching, No rash, No lesions. -Neuro: No confusion, No numbness, No tingling, No focal weakness, No radicular pain, No syncope. Present on Admission - Present on Admission Any Indicators Present on Admission: No Past Patient History - Infectious Disease Hx of Infectious Diseases: None - Past Medical History & Family History Past Medical History?: Yes - Past Social History Smoking Status: Never Smoked - CARDIAC Hx Hypertension: Yes - PULMONARY Hx Chronic Obstructive Pulmonary Disease (COPD): Yes Hx Pneumonia: Yes - NEUROLOGICAL Hx Seizures: Yes (2008) Hx Transient Ischemic Attacks (TIA): Yes - HEENT Hx HEENT Problems: Yes Hx Cataracts: Yes (HAD CUATE CATARACT SURGERY) - RENAL Hx Chronic Kidney Disease: Yes Hx Kidney Stones: No - ENDOCRINE/METABOLIC Hx Diabetes Mellitus Type 1: Yes - HEMATOLOGICAL/ONCOLOGICAL Hx Anemia: Yes - INTEGUMENTARY Hx Dermatological Problems: No - MUSCULOSKELETAL/RHEUMATOLOGICAL Hx Fractures: Yes (RT ANKLE) - GASTROINTESTINAL Hx Gastrointestinal Disorders: Yes Hx Gastroesophageal Reflux: Yes Hx Ulcer: Yes - PSYCHIATRIC Hx Anxiety: Yes Hx Depression: Yes Hx Substance Use: No - SURGICAL HISTORY Hx Surgeries: Yes Hx Arteriovenous Shunt: Yes (NON FUNC MITZI, NEW SIDNEY) Hx Cataract Extraction: Yes Hx Eye Surgery: Yes (RETINA RT) Hx Vascular Access Device: Yes (LEFT AV FISTULA) - ANESTHESIA Hx Anesthesia: Yes Hx Anesthesia Reactions: No Hx Malignant Hyperthermia: No Meds Allergies/Adverse Reactions: Allergies Allergy/AdvReac Type Severity Reaction Status Date / Time No Known Allergies Allergy Verified 07/03/18 09:45 Physical Exam - Constitutional Appears: Non-toxic, No Acute Distress - Head Exam Head Exam: ATRAUMATIC, NORMOCEPHALIC - Eye Exam Eye Exam: EOMI, Normal appearance, PERRL - ENT Exam ENT Exam: Mucous Membranes Moist - Neck Exam Neck exam: Positive for: Full Rom, Normal Inspection. Negative for: Lymphadenop athy - Respiratory Exam Respiratory Exam: Clear to Auscultation Bilateral. absent: Rales, Rhonchi, Wheezes - Cardiovascular Exam Cardiovascular Exam: REGULAR RHYTHM, +S1, +S2, Systolic Murmur (best heard over 2nd intercostal space on the L) - GI/Abdominal Exam GI & Abdominal Exam: Normal Bowel Sounds, Soft, Tenderness (Mild tenderness to LLQ). absent: Distended, Guarding, Rebound, Rigid - Extremities Exam Extremities exam: Positive for: normal inspection, pedal pulses present. Negative for: calf tenderness, pedal edema, tenderness Additional comments: RUE AV shunt with palpable thrill, LUE surgical scar - Neurological Exam Neurological exam: Alert, CN II-XII Intact, Oriented x3 - Psychiatric Exam Psychiatric exam: Normal Affect, Normal Mood - Skin Skin Exam: Dry, Normal Color, Warm Results - Vital Signs Recent Vital Signs: Last Vital Signs Temp 98.3 F 07/23/18 17:42 Pulse 102 H 07/23/18 17:42 Resp 19 07/23/18 17:42 BP 144/55 L 07/23/18 17:42 Pulse Ox 99 07/23/18 21:17 - Labs Result Diagrams: 07/23/18 18:39 07/23/18 18:39 Labs: Laboratory Results - last 24 hr 07/23/18 07/23/18 18:39 18:39 WBC 6.5 RBC 2.63 L Hgb 8.1 L Hct 24.5 L MCV 93.2 D MCH 30.9 MCHC 33.2 RDW 13.9 Plt Count 121 L D MPV 11.5 Neut % (Auto) 66.2 Lymph % (Auto) 22.0 Jennings % (Auto) 8.6 Eos % (Auto) 2.8 Baso % (Auto) 0.4 Neut # (Auto) 4.3 Lymph # (Auto) 1.4 Jennings # (Auto) 0.6 Eos # (Auto) 0.2 Baso # (Auto) 0.0 Differential Comment Sodium 133 Potassium 5.3 H Chloride 95 L Carbon Dioxide 24 Anion Gap 19 BUN 51 H Creatinine 8.3 H* D Est GFR ( Amer) 6 Est GFR (Non-Af Amer) 5 Random Glucose 146 H D Calcium 9.6 Total Bilirubin 0.9 AST 22 ALT 10 Alkaline Phosphatase 120 Troponin I < 0.0120 NT-Pro-B Natriuret Pep 21319 H Total Protein 7.6 Albumin 4.1 Globulin 3.4 Albumin/Globulin Ratio 1.2 Beta HCG, Quant < 2.39 Assessment & Plan - Assessment and Plan (Free Text) Plan: ESRD on HD MWF Missed dialysis Electrolyte abnormality - Nephro Consult: Dr. Velazquez - Plan for HD tomorrow - Continue Sensipar 90mg PO Daily CORINA - Continue Sevelamer 1600mg TIDCC Diarrhea - f/u labs: * C.diff * stool cx * ova and parasite * stool leukocytes History of Hypertension - Home meds * Labetolol 300 PO twice daily * Minoxidil 10mg PO BID * Clonidine 0.1mg PO BID History of Type 1 DM - Hemoglobin A1c 11/2017 - 5.9 - Accuchecks - Hypoglycemia Protocol - Renal/ Carb Consistent Diet - Novolos SS- moderate - home med: Novolog 3 Units ACLD, Lantus 6 Units HS History of CVA - Home med Crestor 10mg PO QHS History of Paresthesia/Neuropathic pain (Hands, Arm, Neck) - Home med Lyrica 75mg PO HS History of GERD - Protonix 40mg PO daily Prophylaxis - Protonix 40mg PO QD - Heparin 5000u SC Q8H Case discussed with Dr. Piedra. Preethi Baxter, PGY-1 <Arturo Piedra - Last Filed: 07/24/18 06:42> Results - Vital Signs Recent Vital Signs: Last Vital Signs Temp 98.3 F 07/24/18 03:03 Pulse 82 07/24/18 03:03 Resp 16 07/24/18 03:03 BP 165/71 H 07/24/18 03:03 Pulse Ox 95 07/24/18 03:03 - Labs Result Diagrams: 07/23/18 18:39 07/23/18 18:39 Labs: Laboratory Results - last 24 hr 07/23/18 07/23/18 07/24/18 18:39 18:39 01:46 WBC 6.5 RBC 2.63 L Hgb 8.1 L Hct 24.5 L MCV 93.2 D MCH 30.9 MCHC 33.2 RDW 13.9 Plt Count 121 L D MPV 11.5 Neut % (Auto) 66.2 Lymph % (Auto) 22.0 Jennings % (Auto) 8.6 Eos % (Auto) 2.8 Baso % (Auto) 0.4 Neut # (Auto) 4.3 Lymph # (Auto) 1.4 Jennings # (Auto) 0.6 Eos # (Auto) 0.2 Baso # (Auto) 0.0 Differential Comment Sodium 133 Potassium 5.3 H Chloride 95 L Carbon Dioxide 24 Anion Gap 19 BUN 51 H Creatinine 8.3 H* D Est GFR ( Amer) 6 Est GFR (Non-Af Amer) 5 POC Glucose (mg/dL) 115 H Random Glucose 146 H D Calcium 9.6 Total Bilirubin 0.9 AST 22 ALT 10 Alkaline Phosphatase 120 Troponin I < 0.0120 NT-Pro-B Natriuret Pep 09146 H Total Protein 7.6 Albumin 4.1 Globulin 3.4 Albumin/Globulin Ratio 1.2 Beta HCG, Quant < 2.39 Assessment & Plan - Date & Time Date: 07/24/18 (I have seen and examined the patient. I agree with the findings and plan of care as documented by Dr. Baxter. Patient with ESRD. Missed recent dialysis. Consult to nephro. For dialysis in AM. Continue home meds. Also with diarrhea. Check stool cultures. Hydrate gently. Monitor for acute changes.) Time: 06:41 Attending/Attestation - Attestation I have personally seen and examined this patient.: Yes I have fully participated in the care of the patient.: Yes I have reviewed all pertinent clinical information: Yes
[2018-07-24] MEDS ORDERED: Dextrose 50% SYRINGE Inj (50 ml) IV PRN (00:01)
[2018-07-24] MEDS ORDERED: Glucagon Recombinant 1 mg Inj IM PRN (00:01)
[2018-07-24] MEDS: (Lantus) Insulin Glargine, Recombinant SC SCH ×2 (01:32→22:09)
[2018-07-24] MEDS ORDERED: (Lantus) Insulin Glargine, Recombinant SC ONE (01:43)
--- NOTE | 2018-07-24 07:45 | CP.PCM.PN ---
Objective - Vital Signs/Intake and Output Vital Signs (last 24 hours): Temp Pulse Resp BP Pulse Ox 98.3 F 82 16 165/71 H 95 07/24/18 03:03 07/24/18 03:03 07/24/18 03:03 07/24/18 03:03 07/24/18 03:03 - Medications Medications: Current Medications Acetaminophen (Tylenol 325mg Tab) 650 mg PO Q6 PRN PRN Reason: Pain, Mild (1-3) Cinacalcet (Sensipar) 90 mg PO DAILY ON LICENSE OF [facility] Clonidine HCl (Catapres) 0.1 mg PO BID ON LICENSE OF [facility] Dextrose (Dextrose 50% Inj) 0 ml IV STAT PRN; Protocol PRN Reason: Hypoglycemia Protocol Dextrose (Glutose 15) 0 gm PO ONCE PRN; Protocol PRN Reason: Hypoglycemia Protocol Glucagon (Glucagen Diagnostic Kit) 0 mg IM STAT PRN; Protocol PRN Reason: Hypoglycemia Protocol Heparin Sodium (Porcine) (Heparin) 5,000 units SC Q8 ON LICENSE OF [facility] Last Admin: 07/24/18 06:59 Dose: 5,000 units Hydrocortisone (Anusol-Hc) 1 gm ID BID ON LICENSE OF [facility] Dextrose (Dextrose 5% In Water 1000 Ml) 1,000 mls @ 0 mls/hr IV .Q0M PRN; Protocol PRN Reason: Hypoglycemia Protocol Insulin Aspart (Novolog) 3 unit SC ACLD CORINA Insulin Aspart (Novolog) 0 unit SC ACHS ON LICENSE OF [facility]; Protocol Insulin Glargine (Lantus) 6 unit SC HS ON LICENSE OF [facility] Last Admin: 07/24/18 01:32 Dose: 6 unit Labetalol HCl (Normodyne) 300 mg PO BID ON LICENSE OF [facility] Minoxidil (Loniten) 10 mg PO BID ON LICENSE OF [facility] Pantoprazole Sodium (Protonix Ec Tab) 40 mg PO DAILY ON LICENSE OF [facility] Pregabalin (Lyrica) 75 mg PO BID ON LICENSE OF [facility] Sevelamer Carbonate (Renvela) 1,600 mg PO TIDCC CORINA - Labs Labs: 07/23/18 18:39 07/23/18 18:39
[2018-07-24] MEDS: (Novolog) Insulin Aspart, Recombinant 100 u/ml 10 ml vial SC SCH ×6 (07:56→22:10)
--- NOTE | 2018-07-24 09:09 | RAD ---
Date of service: 07/24/2018 HISTORY: PNA on last admission COMPARISON: Portable chest 06/20/2018. TECHNIQUE: 1 view obtained. FINDINGS: LUNGS: Questionable patchy density mid right lung zone laterally with remaining lung tubbs clear. PLEURA: No significant pleural effusion identified, no pneumothorax apparent. CARDIOVASCULAR: No aortic atherosclerotic calcification present. Normal cardiac size. No pulmonary vascular congestion. OSSEOUS STRUCTURES: No significant abnormalities. VISUALIZED UPPER ABDOMEN: Normal. OTHER FINDINGS: None. IMPRESSION: Limited atelectasis or infiltrate mid right lung zone laterally. Follow-up chest radiography recommended. Exam otherwise unremarkable.
[2018-07-24] MEDS: Pantoprazole 40 mg EC Tab PO SCH (09:32)
[2018-07-24] MEDS: Labetalol Hydrochloride 300 mg Tab PO SCH ×2 (09:33→18:29)
--- NOTE | 2018-07-24 10:06 | CP.PCM.CON ---
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 Patient states there has been 3-5 episodes of non-bloody diarrhea per day. Associated with int ermittent 5/10 cramping abdominal pain. Symptoms worsen with eating. Patient also complains of chills, bodyaches, palpitations, slight lightheadedness with sitting up, and malaise. She has been eating crackers and drinking fluids. Patient states she missed her dialysis session today due to the pain and diarrhea. Patient denies fever, chest pain, shortness of breath, nausea, vomiting, constipation, hematemesis, hematochezia. Past Medical History: DM1, HTN, ESRD on dialysis MWF, Hx of CVA, sec HPT Past Surgical History: B/l cataracts, R. retina surgery, AV shunt in R. arm, Embolectomy from R. LE, AV fistula left UE collapsed. Family History: Mother - DM/ESRD; Dad - Heart problems, prostate cancer Medications: Novolog 4 units before meals, Lantus 6 units HS, Labetolol 300 mg PO BID, Minoxidil 10 mg PO BID, Clonidine 0.2 mg PO BID, Lyrica 75mg PO HS, Sensipar 90 mg daily, Renvela 3 tabs TID, Nexium 40 mg daily Allergies: NKDA Social History: denies alcohol, smoking, or illicit drug use; lives with father and 2 siblings PMD: Dr. Holloway Nephrology: Dr. Velazquez Review of Systems: -Gen: No fever, + chills, No headache, +malaise, No weakness. -HEENT: +lightheadedness, No change in vision, No change in hearing, No sore throat, No dysphagia, No nasal congestion, No mucous. -Cardio: No chest pain, + palpitations, No lower extremity edema, No orthopnea. -Resp: No cough, No dyspnea, No hemoptysis, No wheezing, No pain on inspiration. -GI: + abdominal pain, No nausea/vomiting, + diarrhea, No hematochezia, No hematemesis. -: No dysuria, No urinary freq, No incontinence, No hematuria, No change in urinary stream. -MSK: No back pain, No muscle weakness, No radiating pain. -Skin: No itching, No rash, No lesions. -Neuro: No confusion, No numbness, No tingling, No focal weakness, No radicular pain, No syncope. Review of Systems - Review of Systems All systems: reviewed and no additional remarkable complaints except - Gastrointestinal Gastrointestinal: Diarrhea, Early Satiety, Loose Stools, Nausea - Genitourinary Genitourinary: As Per HPI - Musculoskeletal Musculoskeletal: Muscle Cramps, Muscle Weakness, Myalgias Past Patient History - Infectious Disease Hx of Infectious Diseases: None - Past Medical History & Family History Past Medical History?: Yes Past Family History: Reviewed and not pertinent - Past Social History Smoking Status: Never Smoked Chewing Tobacco Use: No Cigar Use: No Alcohol: None Drugs: Denies Home Situation {Lives}: With Family - CARDIAC Hx Hypertension: Yes - PULMONARY Hx Chronic Obstructive Pulmonary Disease (COPD): Yes Hx Pneumonia: Yes - NEUROLOGICAL Hx Seizures: Yes (2008) Hx Transient Ischemic Attacks (TIA): Yes - HEENT Hx HEENT Problems: Yes Hx Cataracts: Yes (HAD CUATE CATARACT SURGERY) - RENAL Hx Chronic Kidney Disease: Yes Hx Kidney Stones: No - ENDOCRINE/METABOLIC Hx Diabetes Mellitus Type 1: Yes - HEMATOLOGICAL/ONCOLOGICAL Hx Anemia: Yes - INTEGUMENTARY Hx Dermatological Problems: No - MUSCULOSKELETAL/RHEUMATOLOGICAL Hx Fractures: Yes (RT ANKLE) - GASTROINTESTINAL Hx Gastrointestinal Disorders: Yes Hx Gastroesophageal Reflux: Yes Hx Ulcer: Yes - PSYCHIATRIC Hx Anxiety: Yes Hx Depression: Yes Hx Substance Use: No - SURGICAL HISTORY Hx Surgeries: Yes Hx Arteriovenous Shunt: Yes (NON FUNC MITZI, NEW SIDNEY) Hx Cataract Extraction: Yes Hx Eye Surgery: Yes (RETINA RT) Hx Vascular Access Device: Yes (LEFT AV FISTULA) - ANESTHESIA Hx Anesthesia: Yes Hx Anesthesia Reactions: No Hx Malignant Hyperthermia: No Meds Allergies/Adverse Reactions: Allergies Allergy/AdvReac Type Severity Reaction Status Date / Time No Known Allergies Allergy Verified 07/03/18 09:45 - Medications Medications: Current Medications Acetaminophen (Tylenol 325mg Tab) 650 mg PO Q6 PRN PRN Reason: Pain, Mild (1-3) Last Admin: 07/24/18 08:52 Dose: 650 mg Cinacalcet (Sensipar) 90 mg PO DAILY [facility] Last Admin: 07/24/18 09:33 Dose: 90 mg Clonidine HCl (Catapres) 0.1 mg PO BID [facility] Last Admin: 07/24/18 09:33 Dose: 0.1 mg Dextrose (Dextrose 50% Inj) 0 ml IV STAT PRN; Protocol PRN Reason: Hypoglycemia Protocol Dextrose (Glutose 15) 0 gm PO ONCE PRN; Protocol PRN Reason: Hypoglycemia Protocol Glucagon (Glucagen Diagnostic Kit) 0 mg IM STAT PRN; Protocol PRN Reason: Hypoglycemia Protocol Heparin Sodium (Porcine) (Heparin) 5,000 units SC Q8 [facility] Last Admin: 07/24/18 06:59 Dose: 5,000 units Hydrocortisone (Anusol-Hc) 1 gm [place] BID [facility] Dextrose (Dextrose 5% In Water 1000 Ml) 1,000 mls @ 0 mls/hr IV .Q0M PRN; Protocol PRN Reason: Hypoglycemia Protocol Insulin Aspart (Novolog) 3 unit SC ACLD [facility] Insulin Aspart (Novolog) 0 unit SC ACHS [facility]; Protocol Last Admin: 07/24/18 07:56 Dose: Not Given Insulin Glargine (Lantus) 6 unit SC HS [facility] Last Admin: 07/24/18 01:32 Dose: 6 unit Labetalol HCl (Normodyne) 300 mg PO BID [facility] Last Admin: 07/24/18 09:33 Dose: 300 mg Minoxidil (Loniten) 10 mg PO BID [facility] Last Admin: 07/24/18 09:33 Dose: 10 mg Pantoprazole Sodium (Protonix Ec Tab) 40 mg PO DAILY [facility] Last Admin: 07/24/18 09:32 Dose: 40 mg Pregabalin (Lyrica) 75 mg PO BID [facility] Last Admin: 07/24/18 09:32 Dose: 75 mg Sevelamer Carbonate (Renvela) 1,600 mg PO TIDCC [facility] Last Admin: 07/24/18 08:52 Dose: 1,600 mg Physical Exam - Constitutional Appears: No Acute Distress, Chronically Ill - Head Exam Head Exam: ATRAUMATIC, NORMAL INSPECTION - Eye Exam Eye Exam: EOMI, Normal appearance - Neck Exam Neck exam: Positive for: Normal Inspection. Negative for: Tenderness - Respiratory Exam Respiratory Exam: Clear to Auscultation Bilateral, NORMAL BREATHING PATTERN - Cardiovascular Exam Cardiovascular Exam: REGULAR RHYTHM, +S1 - GI/Abdominal Exam GI & Abdominal Exam: Distended, Tenderness - Extremities Exam Extremities exam: Positive for: normal inspection. Negative for: tenderness - Neurological Exam Neurological exam: Alert, CN II-XII Intact - Skin Skin Exam: Dry, Warm Results - Vital Signs Recent Vital Signs: Last Vital Signs Temp 98 F 07/24/18 07:52 Pulse 79 07/24/18 09:35 Resp 20 07/24/18 07:52 BP 160/63 H 07/24/18 09:35 Pulse Ox 96 07/24/18 07:52 - Labs Result Diagrams: 07/23/18 18:39 07/23/18 18:39 Labs: Laboratory Results - last 24 hr 07/23/18 07/23/18 07/24/18 18:39 18:39 01:46 WBC 6.5 RBC 2.63 L Hgb 8.1 L Hct 24.5 L MCV 93.2 D MCH 30.9 MCHC 33.2 RDW 13.9 Plt Count 121 L D MPV 11.5 Neut % (Auto) 66.2 Lymph % (Auto) 22.0 [place] % (Auto) 8.6 Eos % (Auto) 2.8 Baso % (Auto) 0.4 Neut # (Auto) 4.3 Lymph # (Auto) 1.4 [place] # (Auto) 0.6 Eos # (Auto) 0.2 Baso # (Auto) 0.0 Differential Comment Sodium 133 Potassium 5.3 H Chloride 95 L Carbon Dioxide 24 Anion Gap 19 BUN 51 H Creatinine 8.3 H* D Est GFR ( Amer) 6 Est GFR (Non-Af Amer) 5 POC Glucose (mg/dL) 115 H Random Glucose 146 H D Calcium 9.6 Total Bilirubin 0.9 AST 22 ALT 10 Alkaline Phosphatase 120 Troponin I < 0.0120 NT-Pro-B Natriuret Pep 03336 H Total Protein 7.6 Albumin 4.1 Globulin 3.4 Albumin/Globulin Ratio 1.2 Beta HCG, Quant < 2.39 07/24/18 06:23 WBC RBC Hgb Hct MCV MCH MCHC RDW Plt Count MPV Neut % (Auto) Lymph % (Auto) [place] % (Auto) Eos % (Auto) Baso % (Auto) Neut # (Auto) Lymph # (Auto) [place] # (Auto) Eos # (Auto) Baso # (Auto) Differential Comment Sodium Potassium Chloride Carbon Dioxide Anion Gap BUN Creatinine Est GFR ( Amer) Est GFR (Non-Af Amer) POC Glucose (mg/dL) 97 Random Glucose Calcium Total Bilirubin AST ALT Alkaline Phosphatase Troponin I NT-Pro-B Natriuret Pep Total Protein Albumin Globulin Albumin/Globulin Ratio Beta HCG, Quant Assessment & Plan (1) Hypertensive chronic kidney disease with stage 5 chronic kidney disease or end stage renal disease Status: Acute (2) Type 1 diabetes mellitus with diabetic nephropathy Status: Acute (3) Diarrhea Status: Acute (4) ESRD (end stage renal disease) on dialysis Status: Acute - Assessment and Plan (Free Text) Plan: Dialysis today, then MWF GI workup as per medicine- for CT scan Recheck phos, PTH HTN control
--- NOTE | 2018-07-24 10:12 | RAD ---
Date of service: 07/23/2018 PROCEDURE: Radiographs of the chest and abdomen (obstructive series) HISTORY: abd colic COMPARISON: 06/20/2018 chest x-ray TECHNIQUE: AP radiograph of the chest, with upright and supine radiographs of the abdomen. 3 views obtained. FINDINGS: CHEST: Lungs: Interval vague airspace opacity lateral right mid lung zone possibly pleural parenchymal based. Being infiltrate here is a consideration. Bronchovascular markings appear diffusely abnormally coarsened more so now than before likely in part technical in addition to background pulmonary venous congestion. Cardiovascular: Mild cardiomegaly There is presence of aortic atherosclerotic calcification on x-ray. Pleura: Interval small left pleural effusion apparent left costophrenic angle blunted Other findings: Left axillary lymph node dissection clips in place unchanged. Right axillary vascular stent in place as before. ABDOMEN AND PELVIS: Bowel: Mild-moderate stool retention.. No evidence of mechanical obstruction. Free air: None. Bones: No fracture seen bilateral sclerotic SI joint arthrosis. Other findings: Extensive atherosclerotic vascular calcifications over both kidneys and involving the common iliac branches IMPRESSION: Interval vague opacity lateral right mid lung zone concerning for right pleural parenchymal based pathology. Interval infiltrate here is 1 consideration. Interval minimal left pleural effusion and/or interval left minimal pleural thickening. Cardiomegaly and mild pulmonary venous congestion suspect. No bowel obstruction. Stool retention as above. No free air. Atherosclerotic vascular calcifications present. No evidence of mechanical bowel obstruction. Comments: Study marked for PA review .
--- NOTE | 2018-07-24 10:50 | CP.PCM.PN ---
<Chioma Osman - Last Filed: 07/24/18 10:45> Subjective - Date & Time of Evaluation Date of Evaluation: 07/24/18 Time of Evaluation: 10:45 - Subjective Subjective: PGY-1 Chioma Osman D.O. medicine progress note for Dr. Knowles's service: Patient was seen and examined this morning. She said the she has not had anymore episodes of diarrhea. She missed her dialysis yesterday. She spoke with Dr. Velazquez about getting HD this morning at the hospital. She complains of abdominal/pelvic pain. She does not produce urine. Denies fevers, chest pain, SOB, N/V. Objective - Vital Signs/Intake and Output Vital Signs (last 24 hours): Temp Pulse Resp BP Pulse Ox 98 F 79 20 160/63 H 96 07/24/18 07:52 07/24/18 09:35 07/24/18 07:52 07/24/18 09:35 07/24/18 07:52 - Medications Medications: Current Medications Acetaminophen (Tylenol 325mg Tab) 650 mg PO Q6 PRN PRN Reason: Pain, Mild (1-3) Last Admin: 07/24/18 08:52 Dose: 650 mg Cinacalcet (Sensipar) 90 mg PO DAILY [facility] Last Admin: 07/24/18 09:33 Dose: 90 mg Clonidine HCl (Catapres) 0.1 mg PO BID [facility] Last Admin: 07/24/18 09:33 Dose: 0.1 mg Dextrose (Dextrose 50% Inj) 0 ml IV STAT PRN; Protocol PRN Reason: Hypoglycemia Protocol Dextrose (Glutose 15) 0 gm PO ONCE PRN; Protocol PRN Reason: Hypoglycemia Protocol Epoetin Dewey (Procrit) 10,000 unit IV MWF [facility] Glucagon (Glucagen Diagnostic Kit) 0 mg IM STAT PRN; Protocol PRN Reason: Hypoglycemia Protocol Heparin Sodium (Porcine) (Heparin) 5,000 units SC Q8 [facility] Last Admin: 07/24/18 06:59 Dose: 5,000 units Hydrocortisone (Anusol-Hc) 1 gm [place] BID [facility] Dextrose (Dextrose 5% In Water 1000 Ml) 1,000 mls @ 0 mls/hr IV .Q0M PRN; Protocol PRN Reason: Hypoglycemia Protocol Insulin Aspart (Novolog) 3 unit SC ACLD [facility] Insulin Aspart (Novolog) 0 unit SC ACHS [facility]; Protocol Last Admin: 07/24/18 07:56 Dose: Not Given Insulin Glargine (Lantus) 6 unit SC HS [facility] Last Admin: 07/24/18 01:32 Dose: 6 unit Labetalol HCl (Normodyne) 300 mg PO BID [facility] Last Admin: 07/24/18 09:33 Dose: 300 mg Minoxidil (Loniten) 10 mg PO BID [facility] Last Admin: 07/24/18 09:33 Dose: 10 mg Pantoprazole Sodium (Protonix Ec Tab) 40 mg PO DAILY [facility] Last Admin: 07/24/18 09:32 Dose: 40 mg Pregabalin (Lyrica) 75 mg PO BID [facility] Last Admin: 07/24/18 09:32 Dose: 75 mg Sevelamer Carbonate (Renvela) 1,600 mg PO TIDCC [facility] Last Admin: 07/24/18 08:52 Dose: 1,600 mg - Labs Labs: 07/23/18 18:39 07/23/18 18:39 - Constitutional Appears: Non-toxic, No Acute Distress - Head Exam Head Exam: ATRAUMATIC, NORMAL INSPECTION - Eye Exam Eye Exam: EOMI, Normal appearance - ENT Exam ENT Exam: Mucous Membranes Moist - Neck Exam Neck Exam: Normal Inspection - Respiratory Exam Respiratory Exam: Rales, NORMAL BREATHING PATTERN - Cardiovascular Exam Cardiovascular Exam: RRR, +S1, +S2, Murmur - GI/Abdominal Exam GI & Abdominal Exam: Soft, Tenderness, Normal Bowel Sounds. absent: Distended, Mass, Rebound - Exam Exam: Bladder Distension - Extremities Exam Extremities Exam: Full ROM Additional comments: R AVF - Neurological Exam Neurological Exam: Alert, Awake, CN II-XII Intact, Oriented x3 - Psychiatric Exam Psychiatric exam: Normal Affect, Normal Mood - Skin Skin Exam: Dry, Normal Color, Warm Assessment and Plan - Assessment and Plan (Free Text) Assessment: Patient is a 43 yo female with ESRD on HD MWF, T1DM, HTN, and h/o CVA who presented with post-prandial diarrhea and abdominal for 3-4 days. Patient missed HD yesterday- she will go today 07/24. Stool studies and imaging pending. Patient was recently hospitalized with PNA and bacteremia. Plan: Abdominal pain and Diarrhea, acute - AXR: stool retention, no bowel obstruction, no free air - CT A/P pending - Bladder scan pending - Stool studies pending - Tylenol 650 mg PO Q6H PRN End stage renal dialysis on hemodialysis MWF, chronic - Patient missed HD yesterday, will receive today 07/24 - K 5.3, BUN 51, Cr 8.3 - BNP 16,800 - UA pending - PTH pending - Sensipar 90 mg PO daily - Sevelamer 1600 mg TID - Nephrology consulted (Marcus) Anemia, acute on chronic - Hgb 8.1 (baseline 9-12) - EPO 10,000 units IV MWF - FOBT pending - Iron studies pending - Monitor H&H Recent pneumonia and bacteremia - Afebrile, no leukocytosis - CXR: limited atelectasis or infiltrate mid right lung zone laterally - Blood Cx pending Type 1 diabetes mellitus, chronic - A1c 5.9 in 11/2017 - Accuchecks ACHS - Hypoglycemia protocol - ISS medium - Lantus 6 units SC QHS - Novolog 3 units SC ACLD - Lyrica 75 mg PO QHS Hypertension, chronic - Vitals Q6H - Labetolol 300 PO twice daily - Minoxidil 10mg PO BID - Clonidine 0.1mg PO BID GERD, chronic - Protonix 40 mg PO daily Thrombocytopenia, chronic, stable - Plts 121 - Avoid anticoagulation - Monitor CBC Ppx: VTE: SCDs, chemical anticoag contraindicated due to anemia and thrombocytopenia GI: Protonix 40 mg PO daily Diet: Renal, diabetic, vegan Case discussed with attending, Dr. Knowles. <Jacek Knowles - Last Filed: 07/24/18 15:06> Objective - Vital Signs/Intake and Output Vital Signs (last 24 hours): Temp Pulse Resp BP Pulse Ox 97.8 F 75 20 133/57 L 99 07/24/18 14:47 07/24/18 14:47 07/24/18 14:47 07/24/18 14:47 07/24/18 14:47 - Medications Medications: Current Medications Acetaminophen (Tylenol 325mg Tab) 650 mg PO Q6 PRN PRN Reason: Pain, Mild (1-3) Last Admin: 07/24/18 08:52 Dose: 650 mg Cinacalcet (Sensipar) 90 mg PO DAILY [facility] Last Admin: 07/24/18 09:33 Dose: 90 mg Clonidine HCl (Catapres) 0.1 mg PO BID [facility] Last Admin: 07/24/18 09:33 Dose: 0.1 mg Dextrose (Dextrose 50% Inj) 0 ml IV STAT PRN; Protocol PRN Reason: Hypoglycemia Protocol Dextrose (Glutose 15) 0 gm PO ONCE PRN; Protocol PRN Reason: Hypoglycemia Protocol Epoetin [place] (Procrit) 10,000 unit IV MWF [facility] Glucagon (Glucagen Diagnostic Kit) 0 mg IM STAT PRN; Protocol PRN Reason: Hypoglycemia Protocol Heparin Sodium (Porcine) (Heparin) 5,000 units SC Q8 [facility] Last Admin: 07/24/18 06:59 Dose: 5,000 units Hydrocortisone (Anusol-Hc) 1 gm [place] BID [facility] Last Admin: 07/24/18 10:55 Dose: Not Given Dextrose (Dextrose 5% In Water 1000 Ml) 1,000 mls @ 0 mls/hr IV .Q0M PRN; Protocol PRN Reason: Hypoglycemia Protocol Insulin Aspart (Novolog) 3 unit SC ACLD [facility] Last Admin: 07/24/18 12:10 Dose: Not Given Insulin Aspart (Novolog) 0 unit SC ACHS [facility]; Protocol Last Admin: 07/24/18 12:10 Dose: Not Given Insulin Glargine (Lantus) 6 unit SC HS [facility] Last Admin: 07/24/18 01:32 Dose: 6 unit Labetalol HCl (Normodyne) 300 mg PO BID [facility] Last Admin: 07/24/18 09:33 Dose: 300 mg Minoxidil (Loniten) 10 mg PO BID [facility] Last Admin: 07/24/18 09:33 Dose: 10 mg Pantoprazole Sodium (Protonix Ec Tab) 40 mg PO DAILY [facility] Last Admin: 07/24/18 09:32 Dose: 40 mg Pregabalin (Lyrica) 75 mg PO BID [facility] Last Admin: 07/24/18 09:32 Dose: 75 mg Sevelamer Carbonate (Renvela) 1,600 mg PO TIDCC [facility] Last Admin: 07/24/18 12:10 Dose: Not Given - Labs Labs: 07/24/18 11:27 07/24/18 11:27 Attending/Attestation - Attestation I have personally seen and examined this patient.: Yes I have fully participated in the care of the patient.: Yes I have reviewed all pertinent clinical information, including history, physical exam and plan: Yes Notes (Text): 07/24/18 15:01 Medical attending: Patient was seen and examined by me. Agree with the above note by the resident The patient was not in any acute distress She will be having HD today as she did not get it yesterday The patient reported some watery diarrhea. She also felt very bloated as well. She was recently here at [facility] due to + blood cultures and on IV abx. Therefore we are pending on the C diff study and we also ordered a CT scan of the abdomen and pelvis Jacek Knowles
[2018-07-24] MEDS: Hydrocortisone 2.5% Rectal Cream(30 gm) PR SCH ×2 (10:55→18:31)
[2018-07-24 11:31] LABS: BASO # 0.1 K/uL (0.0-0.2); EOS # 0.2 K/uL (0.0-0.7); HEMOGLOBIN 7.8 g/dL (11.0-16.0); LYMPH # 1.6 K/uL (1.0-4.3); LYMPH % 25.4 % (20.0-40.0); MEAN CORPUSCULAR HEMOGLOBIN 31.9 pg (27.0-31.0); MEAN PLATELET VOLUME 11.8 fL (7.2-11.7); MONO # 0.6 K/uL (0.0-0.8); MONO % 9.1 % (0.0-10.0); NEUT # 3.8 K/uL (1.8-7.0); NEUT % 61.5 % (50.0-75.0); NRBC % 0.1 % (0.0-2.0); RBC 2.44 Mil/uL (3.80-5.20); RED CELL DISTRIBUTION WIDTH 13.7 % (11.5-14.5); WHITE BLOOD COUNT 6.2 K/uL (4.8-10.8)
[2018-07-24 12:10] LABS: ALB/GLOB RATIO 1.1 (1.0-2.1); ALBUMIN 4.1 g/dL (3.5-5.0); CALCIUM 9.7 mg/dl (8.6-10.4)
--- NOTE | 2018-07-24 18:43 | CT ---
PROCEDURE: CT Abdomen and Pelvis without Oral or IV contrast. HISTORY: distension, diarrhea COMPARISON: Lumbar spine CT without contrast performed 07/03/18, CT abdomen and pelvis without IV contrast performed 02/28/18 TECHNIQUE: Contiguous axial images of the abdomen and pelvis. No oral or IV contrast administered. Coronal and Sagittal reformats generated and reviewed. Radiation dose: Total exam DLP = 227.09 mGy-cm. This CT exam was performed using one or more of the following dose reduction techniques: Automated exposure control, adjustment of the mA and/or kV according to patient size, and/or use of iterative reconstruction technique. FINDINGS: There is limited evaluation of the solid organs without the administration of IV contrast. LOWER THORAX: Nodular and ground-glass opacities within the included lung bases. No visible pleural effusion or pneumothorax. LIVER: Hepatomegaly. Nodular hepatic contour. GALLBLADDER AND BILE DUCTS: Cholelithiasis. PANCREAS: Unremarkable unenhanced appearance. SPLEEN: Unremarkable unenhanced appearance. ADRENALS: Nodular hypertrophy of the left adrenal gland. The right adrenal gland appears grossly unremarkable. KIDNEYS AND URETERS: No hydronephrosis or obstructing renal calculus. Bilateral renal cysts. Indeterminate lobulation/hypodensity at the posterior left upper pole kidney, possibly complex cyst. BLADDER: Thick-walled under distended urinary bladder. REPRODUCTIVE: Lobulated heterogeneous appearance of the uterus. APPENDIX: The appendix appears within normal limits of caliber. No secondary signs of acute appendicitis. BOWEL: The stomach is nondistended. Lack of oral contrast limits evaluation for bowel pathology. Thick-walled loops of small and large bowel may be exaggerated by under distension; correlate clinically for possibility of enteritis/colitis. PERITONEUM: No significant free fluid. No definite free air. LYMPH NODES: No bulky lymphadenopathy identified. VASCULATURE: Dense atherosclerotic calcifications of the aorta and branches. No aortic aneurysm. BONES: Heterogeneous sclerotic appearance of the osseous structures appears consistent with renal osteodystrophy. Mild chronic appearing compression fracture deformity of L4. OTHER FINDINGS: None. IMPRESSION: Nodular and ground-glass opacities within the included lung bases. Correlate clinically for possibility of infectious or inflammatory etiologies. Hepatomegaly. Nodular hepatic contour. Cholelithiasis. Bilateral renal cysts. Indeterminate lobulation/hypodensity at the posterior left upper pole kidney, possibly complex cyst. Renal ultrasound may be considered. Nodular hypertrophy of the left adrenal gland. Thick-walled loops of small and large bowel may be exaggerated by under distension; correlate clinically for possibility of enteritis/colitis. Heterogeneous sclerotic appearance of the osseous structures appears consistent with renal osteodystrophy. Mild chronic appearing compression fracture deformity of L4.
--- NOTE | 2018-07-25 06:49 | CP.PCM.PN ---
Subjective - Date & Time of Evaluation Date of Evaluation: 07/25/18 Time of Evaluation: 06:49 - Subjective Subjective: PGY-1 Chioma Osman D.O. medicine progress note for Dr. Knowles's service: Patient was seen and examined this morning. She was in dialysis. She says that now she feels constipated and has not had a BM for 3 days. She is also complain of R leg pain. Denies chest pain, SOB, palpitations, fevers/chill, N/V. Objective - Vital Signs/Intake and Output Vital Signs (last 24 hours): Temp Pulse Resp BP Pulse Ox 97.9 F 77 21 115/57 L 96 07/25/18 00:45 07/25/18 00:45 07/25/18 00:45 07/25/18 00:45 07/25/18 00:45 - Medications Medications: Current Medications Acetaminophen (Tylenol 325mg Tab) 650 mg PO Q6 PRN PRN Reason: Pain, Mild (1-3) Last Admin: 07/24/18 08:52 Dose: 650 mg Cinacalcet (Sensipar) 90 mg PO DAILY [facility] Last Admin: 07/24/18 09:33 Dose: 90 mg Clonidine HCl (Catapres) 0.1 mg PO BID [facility] Last Admin: 07/24/18 18:29 Dose: 0.1 mg Dextrose (Dextrose 50% Inj) 0 ml IV STAT PRN; Protocol PRN Reason: Hypoglycemia Protocol Dextrose (Glutose 15) 0 gm PO ONCE PRN; Protocol PRN Reason: Hypoglycemia Protocol Epoetin Dewey (Procrit) 10,000 unit IV [facility] Glucagon (Glucagen Diagnostic Kit) 0 mg IM STAT PRN; Protocol PRN Reason: Hypoglycemia Protocol Heparin Sodium (Porcine) (Heparin) 5,000 units SC Q8 [facility] Last Admin: 07/24/18 06:59 Dose: 5,000 units Hydrocortisone (Anusol-Hc) 1 gm [place] BID [facility] Last Admin: 07/24/18 18:31 Dose: Not Given Dextrose (Dextrose 5% In Water 1000 Ml) 1,000 mls @ 0 mls/hr IV .Q0M PRN; Protocol PRN Reason: Hypoglycemia Protocol Insulin Aspart (Novolog) 3 unit SC ACLD [facility] Last Admin: 07/24/18 18:31 Dose: Not Given Insulin Aspart (Novolog) 0 unit SC ACHS [facility]; Protocol Last Admin: 07/24/18 22:10 Dose: Not Given Insulin Glargine (Lantus) 6 unit SC HS [facility] Last Admin: 07/24/18 22:09 Dose: 6 unit Labetalol HCl (Normodyne) 300 mg PO BID [facility] Last Admin: 07/24/18 18:29 Dose: 300 mg Minoxidil (Loniten) 10 mg PO BID [facility] Last Admin: 07/24/18 18:28 Dose: 10 mg Pantoprazole Sodium (Protonix Ec Tab) 40 mg PO DAILY [facility] Last Admin: 07/24/18 09:32 Dose: 40 mg Pregabalin (Lyrica) 75 mg PO BID [facility] Last Admin: 07/24/18 18:28 Dose: 75 mg Sevelamer Carbonate (Renvela) 1,600 mg PO TIDCC [facility] Last Admin: 07/24/18 18:29 Dose: 1,600 mg - Labs Labs: 07/24/18 11:27 07/24/18 11:27 - Additional Findings Additional findings: - Constitutional Appears: Non-toxic, No Acute Distress - Head Exam Head Exam: ATRAUMATIC, NORMAL INSPECTION - Eye Exam Eye Exam: EOMI, Normal appearance - ENT Exam ENT Exam: Mucous Membranes Moist - Neck Exam Neck Exam: Normal Inspection - Respiratory Exam Respiratory Exam: Clear to auscultation, NORMAL BREATHING PATTERN - Cardiovascular Exam Cardiovascular Exam: RRR, +S1, +S2, Murmur - GI/Abdominal Exam GI & Abdominal Exam: Soft, Diffuse Tenderness, Normal Bowel Sounds. absent: Distended, Mass, Rebound - Extremities Exam Extremities Exam: Full ROM Additional comments: R AVF - Neurological Exam Neurological Exam: Alert, Awake, CN II-XII Intact, Oriented x3 - Psychiatric Exam Psychiatric exam: Normal Affect, Normal Mood - Skin Skin Exam: Dry, Normal Color, Warm Assessment and Plan - Assessment and Plan (Free Text) Assessment: Patient is a 43 yo female with ESRD on HD MWF, T1DM, HTN, and h/o CVA who presented with post-prandial diarrhea and abdominal for 3-4 days. Patient missed HD yesterday- she went 07/24, 07/25, and is scheduled for 07/26. Stool studies pending. However, patient now reports constipation and has not had BM in 2 days. Patient was recently hospitalized with PNA and bacteremia. Plan: Abdominal pain, acute- initiallyw ith diarrhea, this resolved; now with constipation - AXR: stool retention, no bowel obstruction, no free air - CT A/P: Thick-walled loops of small and large bowel may be exaggerated by under distension; correlate clinically for possibility of enteritis/colitis. - Stool studies pending - Tylenol 650 mg PO Q6H PRN - Fleet enema x1 on 07/25 - Colace 100 mg PO TID - Anusol WA BID End stage renal dialysis on hemodialysis MWF, chronic - Patient missed HD 07/23, received 07/24, 07/25- scheduled for tomorrow 07/26 - On admission: K 5.3, Ph 6.1, BUN 51, Cr 8.3--> K 4.3, Ph 4.3, BUN 35, Cr 6.9 - BNP 16,800 - PTH elev (266) - CT A/P: Bilateral renal cysts. Indeterminate lobulation/hypodensity at the posterior left upper pole kidney, possibly complex cyst. Renal ultrasound may be considered. - Sensipar 90 mg PO daily - Sevelamer 1600 mg TID - Nephrology consulted (Marcus) - PT- home with services Anemia, acute on chronic - Hgb 7.9 (baseline 9-12) - EPO 10,000 units IV MWF - FOBT pending - Iron studies pending - Monitor H&H - Type and cross - Transfuse 1 unit pRBC tomorrow 07/26 during HD Recent pneumonia and bacteremia - Afebrile, no leukocytosis - CXR: limited atelectasis or infiltrate mid right lung zone laterally - CT A/P: Nodular and ground-glass opacities within the included lung bases. Correlate clinically for possibility of infectious or inflammatory etiologies. - Blood Cx no growth >24 hrs - Duoneb Q6H PRN Type 1 diabetes mellitus, chronic - A1c 5.9 in 11/2017 - Accuchecks ACHS - Hypoglycemia protocol - ISS medium - Lantus 6 units SC QHS - Novolog 3 units SC ACLD - Lyrica 75 mg PO QHS Hypertension, chronic - Vitals Q6H - Labetolol 300 PO twice daily - Minoxidil 10mg PO BID - Clonidine 0.1mg PO BID GERD, chronic - Protonix 40 mg PO daily Thrombocytopenia, chronic, stable - Plts 121 - Avoid anticoagulation - Monitor CBC Ppx: VTE: SCDs, chemical anticoag contraindicated due to anemia and thrombocytopenia GI: Protonix 40 mg PO daily Diet: Renal, diabetic, vegan Case discussed with attending, Dr. Knowles.
[2018-07-25] MEDS: (Novolog) Insulin Aspart, Recombinant 100 u/ml 10 ml vial SC SCH ×6 (07:59→21:40)
[2018-07-25 08:06] LABS: BASO # 0.1 K/uL (0.0-0.2); BASO % 1.1 % (0.0-2.0); EOS # 0.2 K/uL (0.0-0.7); EOS % 3.5 % (0.0-4.0); HEMOGLOBIN 7.9 g/dL (11.0-16.0); LYMPH # 1.6 K/uL (1.0-4.3); LYMPH % 30.8 % (20.0-40.0); MEAN CELL VOLUME 94.7 fL (81.0-99.0); MEAN CORPUSCULAR HEMOGLOBIN 32.1 pg (27.0-31.0); MEAN CORPUSCULAR HGB CONC 33.9 g/dL (33.0-37.0); MEAN PLATELET VOLUME 12.4 fL (7.2-11.7); MONO # 0.5 K/uL (0.0-0.8); NEUT # 2.8 K/uL (1.8-7.0); NEUT % 54.6 % (50.0-75.0); NRBC % 0.1 % (0.0-2.0); RBC 2.46 Mil/uL (3.80-5.20); RED CELL DISTRIBUTION WIDTH 13.7 % (11.5-14.5); WHITE BLOOD COUNT 5.2 K/uL (4.8-10.8)
[2018-07-25 08:30] LABS: ALB/GLOB RATIO 1.2 (1.0-2.1); ALBUMIN 4.2 g/dL (3.5-5.0); CALCIUM 8.9 mg/dl (8.6-10.4)
[2018-07-25] MEDS ORDERED: Epoetin Alfa 10,000 unit/ml Dialysis IV SCH (09:00)
[2018-07-25] MEDS: Pantoprazole 40 mg EC Tab PO SCH ×2 (10:00→14:53)
[2018-07-25] MEDS: Labetalol Hydrochloride 300 mg Tab PO SCH ×2 (10:00→17:50)
[2018-07-25] MEDS: Hydrocortisone 2.5% Rectal Cream(30 gm) PR SCH ×2 (10:00→17:55)
--- NOTE | 2018-07-25 14:05 | CP.PCM.PN ---
Subjective - Date & Time of Evaluation Date of Evaluation: 07/25/18 Time of Evaluation: 14:03 - Subjective Subjective: seen at dialysis UF 2700ml c/o severe constipation now Hg low- too late to give transfusion as just off dialysis no ther complaint Objective - Vital Signs/Intake and Output Vital Signs (last 24 hours): Temp Pulse Resp BP Pulse Ox 97.8 F 75 16 111/60 97 07/25/18 10:25 07/25/18 11:58 07/25/18 10:25 07/25/18 11:15 07/25/18 10:25 - Medications Medications: Current Medications Acetaminophen (Tylenol 325mg Tab) 650 mg PO Q6 PRN PRN Reason: Pain, Mild (1-3) Last Admin: 07/24/18 08:52 Dose: 650 mg Cinacalcet (Sensipar) 90 mg PO DAILY [facility] Last Admin: 07/24/18 09:33 Dose: 90 mg Clonidine HCl (Catapres) 0.1 mg PO BID [facility] Last Admin: 07/24/18 18:29 Dose: 0.1 mg Dextrose (Dextrose 50% Inj) 0 ml IV STAT PRN; Protocol PRN Reason: Hypoglycemia Protocol Dextrose (Glutose 15) 0 gm PO ONCE PRN; Protocol PRN Reason: Hypoglycemia Protocol Epoetin Dewey (Procrit) 10,000 unit IV MWF [facility] Last Admin: 07/25/18 13:16 Dose: 10,000 unit Glucagon (Glucagen Diagnostic Kit) 0 mg IM STAT PRN; Protocol PRN Reason: Hypoglycemia Protocol Heparin Sodium (Porcine) (Heparin) 5,000 units SC Q8 [facility] Last Admin: 07/24/18 06:59 Dose: 5,000 units Hydrocortisone (Anusol-Hc) 1 gm AR BID [facility] Last Admin: 07/24/18 18:31 Dose: Not Given Dextrose (Dextrose 5% In Water 1000 Ml) 1,000 mls @ 0 mls/hr IV .Q0M PRN; Protocol PRN Reason: Hypoglycemia Protocol Insulin Aspart (Novolog) 3 unit SC ACLD [facility] Last Admin: 07/24/18 18:31 Dose: Not Given Insulin Aspart (Novolog) 0 unit SC ACHS [facility]; Protocol Last Admin: 07/25/18 07:59 Dose: Not Given Insulin Glargine (Lantus) 6 unit SC HS [facility] Last Admin: 07/24/18 22:09 Dose: 6 unit Labetalol HCl (Normodyne) 300 mg PO BID [facility] Last Admin: 07/24/18 18:29 Dose: 300 mg Minoxidil (Loniten) 10 mg PO BID [facility] Last Admin: 07/24/18 18:28 Dose: 10 mg Pantoprazole Sodium (Protonix Ec Tab) 40 mg PO DAILY [facility] Last Admin: 07/24/18 09:32 Dose: 40 mg Pregabalin (Lyrica) 75 mg PO BID [facility] Last Admin: 07/24/18 18:28 Dose: 75 mg Sevelamer Carbonate (Renvela) 1,600 mg PO TIDCC [facility] Last Admin: 07/24/18 18:29 Dose: 1,600 mg - Labs Labs: 07/25/18 07:49 07/25/18 07:49 - Constitutional Appears: No Acute Distress, Chronically Ill - Head Exam Head Exam: ATRAUMATIC, NORMAL INSPECTION - Eye Exam Eye Exam: EOMI, Normal appearance - Neck Exam Neck Exam: Normal Inspection. absent: Tenderness - Respiratory Exam Respiratory Exam: Clear to Ausculation Bilateral, NORMAL BREATHING PATTERN - Cardiovascular Exam Cardiovascular Exam: REGULAR RHYTHM, +S1 - GI/Abdominal Exam GI & Abdominal Exam: Soft. absent: Tenderness - Extremities Exam Extremities Exam: Normal Inspection. absent: Tenderness - Neurological Exam Neurological Exam: Awake. absent: CN II-XII Intact - Skin Skin Exam: Dry, Warm Assessment and Plan (1) Hypertensive chronic kidney disease with stage 5 chronic kidney disease or end stage renal disease Status: Acute (2) Type 1 diabetes mellitus with diabetic nephropathy Status: Acute (3) Diarrhea Status: Acute (4) ESRD (end stage renal disease) on dialysis Status: Acute - Assessment and Plan (Free Text) Plan: trial colace repeat short dialysis treatment in AM - give 1 unit prbcs then same other meds
[2018-07-25] MEDS ORDERED: Albuterol-Ipratrop 3 mg / 0.5 (3 ml) UD INH PRN (17:54)
[2018-07-25] MEDS: (Lantus) Insulin Glargine, Recombinant SC SCH (21:46)
[2018-07-26 07:19] LABS: BASO # 0.1 K/uL (0.0-0.2); BASO % 1.8 % (0.0-2.0); EOS # 0.2 K/uL (0.0-0.7); LYMPH # 1.9 K/uL (1.0-4.3); LYMPH % 41.8 % (20.0-40.0); MEAN CELL VOLUME 94.9 fL (81.0-99.0); MEAN CORPUSCULAR HEMOGLOBIN 32.1 pg (27.0-31.0); MEAN CORPUSCULAR HGB CONC 33.9 g/dL (33.0-37.0); MEAN PLATELET VOLUME 11.7 fL (7.2-11.7); MONO # 0.6 K/uL (0.0-0.8); MONO % 12.6 % (0.0-10.0); NEUT # 1.7 K/uL (1.8-7.0); NEUT % 38.8 % (50.0-75.0); RBC 2.48 Mil/uL (3.80-5.20); WHITE BLOOD COUNT 4.5 K/uL (4.8-10.8)
[2018-07-26 07:43] LABS: ALB/GLOB RATIO 1.3 (1.0-2.1); ALBUMIN 4.2 g/dL (3.5-5.0); ALT/SGPT < 6 U/L (9-52); AST/SGOT 17 U/L (14-36); BLOOD UREA NITROGEN 21 mg/dL (7-17); CALCIUM 8.6 mg/dl (8.6-10.4); GFR NON-AFRICAN AMERICAN 12
[2018-07-26] MEDS: (Novolog) Insulin Aspart, Recombinant 100 u/ml 10 ml vial SC SCH ×6 (08:28→22:13)
--- NOTE | 2018-07-26 10:03 | CP.PCM.PN ---
Subjective - Date & Time of Evaluation Date of Evaluation: 07/26/18 Time of Evaluation: 10:00 - Subjective Subjective: seen on dialysis- only for 1 hour to receive tranfusion- 1 unit prbc less constipated feels better but dizzy at times Objective - Vital Signs/Intake and Output Vital Signs (last 24 hours): Temp Pulse Resp BP Pulse Ox 97.7 F 81 16 119/56 L 97 07/26/18 09:40 07/26/18 09:40 07/26/18 09:40 07/26/18 09:40 07/26/18 09:40 - Medications Medications: Current Medications Acetaminophen (Tylenol 325mg Tab) 650 mg PO Q6 PRN PRN Reason: Pain, Mild (1-3) Last Admin: 07/25/18 21:44 Dose: 650 mg Albuterol/Ipratropium (Duoneb 3 Mg/0.5 Mg (3 Ml) Ud) 3 ml INH RQ6 PRN PRN Reason: Shortness of Breath Cinacalcet (Sensipar) 90 mg PO DAILY [facility] Last Admin: 07/25/18 14:53 Dose: 90 mg Clonidine HCl (Catapres) 0.1 mg PO BID [facility] Last Admin: 07/25/18 17:49 Dose: 0.1 mg Dextrose (Dextrose 50% Inj) 0 ml IV STAT PRN; Protocol PRN Reason: Hypoglycemia Protocol Dextrose (Glutose 15) 0 gm PO ONCE PRN; Protocol PRN Reason: Hypoglycemia Protocol Docusate Sodium (Colace) 100 mg PO TID [facility] Last Admin: 07/25/18 17:49 Dose: 100 mg Epoetin Dewey (Procrit) 10,000 unit IV MWF [facility] Last Admin: 07/25/18 13:16 Dose: 10,000 unit Glucagon (Glucagen Diagnostic Kit) 0 mg IM STAT PRN; Protocol PRN Reason: Hypoglycemia Protocol Hydrocortisone (Anusol-Hc) 1 gm HI BID [facility] Last Admin: 07/25/18 17:55 Dose: Not Given Dextrose (Dextrose 5% In Water 1000 Ml) 1,000 mls @ 0 mls/hr IV .Q0M PRN; Protocol PRN Reason: Hypoglycemia Protocol Insulin Aspart (Novolog) 3 unit SC ACLD [facility] Last Admin: 07/25/18 17:51 Dose: 3 unit Insulin Aspart (Novolog) 0 unit SC ACHS [facility]; Protocol Last Admin: 07/26/18 08:28 Dose: Not Given Insulin Glargine (Lantus) 6 unit SC HS [facility] Last Admin: 07/25/18 21:46 Dose: 6 unit Labetalol HCl (Normodyne) 300 mg PO BID [facility] Last Admin: 07/25/18 17:50 Dose: 300 mg Minoxidil (Loniten) 10 mg PO BID [facility] Last Admin: 07/25/18 17:49 Dose: 10 mg Pantoprazole Sodium (Protonix Ec Tab) 40 mg PO DAILY [facility] Last Admin: 07/25/18 14:53 Dose: 40 mg Pregabalin (Lyrica) 75 mg PO BID [facility] Last Admin: 07/25/18 17:48 Dose: 75 mg Sevelamer Carbonate (Renvela) 1,600 mg PO TIDCC [facility] Last Admin: 07/26/18 08:34 Dose: 1,600 mg Sodium Phosphate (Fleet Enema) 135 ml HI ONCE ONE Stop: 07/26/18 09:58 - Labs Labs: 07/26/18 07:10 07/26/18 07:10 - Constitutional Appears: No Acute Distress, Chronically Ill - Head Exam Head Exam: ATRAUMATIC, NORMAL INSPECTION - Eye Exam Eye Exam: EOMI, Normal appearance - Neck Exam Neck Exam: Normal Inspection. absent: Tenderness - Respiratory Exam Respiratory Exam: Clear to Ausculation Bilateral, NORMAL BREATHING PATTERN - Cardiovascular Exam Cardiovascular Exam: REGULAR RHYTHM, +S1 - GI/Abdominal Exam GI & Abdominal Exam: Soft. absent: Tenderness - Extremities Exam Extremities Exam: Normal Inspection. absent: Tenderness - Neurological Exam Neurological Exam: Awake, CN II-XII Intact - Skin Skin Exam: Dry, Warm Assessment and Plan (1) Hypertensive chronic kidney disease with stage 5 chronic kidney disease or end stage renal disease Status: Acute (2) Type 1 diabetes mellitus with diabetic nephropathy Status: Acute (3) Diarrhea Status: Acute (4) ESRD (end stage renal disease) on dialysis Status: Acute - Assessment and Plan (Free Text) Plan: blood transfusion now monitor abdominal pains dialysis MWF lower minoxidil dose
[2018-07-26] MEDS: Hydrocortisone 2.5% Rectal Cream(30 gm) PR SCH ×2 (10:45→17:33)
[2018-07-26] MEDS: Pantoprazole 40 mg EC Tab PO SCH ×2 (10:46→13:06)
[2018-07-26] MEDS: Labetalol Hydrochloride 300 mg Tab PO SCH ×2 (10:46→17:34)
--- NOTE | 2018-07-26 16:17 | CP.PCM.PN ---
Subjective - Date & Time of Evaluation Date of Evaluation: 07/26/18 Time of Evaluation: 16:12 - Subjective Subjective: Medicine Progress Note for Dr. Knowles's service S/E at bedside. Reports dizziness at times when ambulating. Had 1 bowel movement s/p enema. Denies fevers, chills, chest pain, syncope, palpitations, sob, n/v, constipation or diarrhea, and dysuria. Objective - Vital Signs/Intake and Output Vital Signs (last 24 hours): Temp Pulse Resp BP Pulse Ox 97.8 F 75 18 123/57 L 97 07/26/18 11:07 07/26/18 12:00 07/26/18 11:07 07/26/18 11:07 07/26/18 11:07 Intake and Output: 07/26/18 07/26/18 06:59 18:59 Intake Total 0 Balance 0 - Medications Medications: Current Medications Acetaminophen (Tylenol 325mg Tab) 650 mg PO Q6 PRN PRN Reason: Pain, Mild (1-3) Last Admin: 07/25/18 21:44 Dose: 650 mg Albuterol/Ipratropium (Duoneb 3 Mg/0.5 Mg (3 Ml) Ud) 3 ml INH RQ6 PRN PRN Reason: Shortness of Breath Cinacalcet (Sensipar) 90 mg PO DAILY [facility] Last Admin: 07/26/18 13:06 Dose: 90 mg Clonidine HCl (Catapres) 0.1 mg PO BID [facility] Last Admin: 07/26/18 10:45 Dose: Not Given Dextrose (Dextrose 50% Inj) 0 ml IV STAT PRN; Protocol PRN Reason: Hypoglycemia Protocol Dextrose (Glutose 15) 0 gm PO ONCE PRN; Protocol PRN Reason: Hypoglycemia Protocol Docusate Sodium (Colace) 100 mg PO TID [facility] Last Admin: 07/26/18 13:06 Dose: 100 mg Epoetin Dewey (Procrit) 10,000 unit IV MWF [facility] Last Admin: 07/25/18 13:16 Dose: 10,000 unit Glucagon (Glucagen Diagnostic Kit) 0 mg IM STAT PRN; Protocol PRN Reason: Hypoglycemia Protocol Hydrocortisone (Anusol-Hc) 1 gm [place] BID [facility] Last Admin: 07/26/18 10:45 Dose: Not Given Dextrose (Dextrose 5% In Water 1000 Ml) 1,000 mls @ 0 mls/hr IV .Q0M PRN; Protocol PRN Reason: Hypoglycemia Protocol Insulin Aspart (Novolog) 3 unit SC ACLD [facility] Last Admin: 07/26/18 12:25 Dose: Not Given Insulin Aspart (Novolog) 0 unit SC ACHS [facility] [place]; Protocol Last Admin: 07/26/18 12:25 Dose: Not Given Insulin Glargine (Lantus) 6 unit SC HS [facility] [place] Last Admin: 07/25/18 21:46 Dose: 6 unit Labetalol HCl (Normodyne) 300 mg PO BID [facility] [place] Last Admin: 07/26/18 10:46 Dose: Not Given Minoxidil (Minoxidil) 5 mg PO BID [facility] Last Admin: 07/26/18 10:46 Dose: Not Given Pantoprazole Sodium (Protonix Ec Tab) 40 mg PO DAILY [facility] Last Admin: 07/26/18 13:06 Dose: 40 mg Pregabalin (Lyrica) 75 mg PO BID [facility] Last Admin: 07/26/18 10:45 Dose: Not Given Sevelamer Carbonate (Renvela) 1,600 mg PO TIDCC [facility] Last Admin: 07/26/18 12:57 Dose: 1,600 mg - Labs Labs: 07/26/18 07:10 07/26/18 07:10 - Additional Findings Additional findings: - Constitutional Appears: Non-toxic, No Acute Distress - Head Exam Head Exam: ATRAUMATIC, NORMAL INSPECTION - Eye Exam Eye Exam: EOMI, Normal appearance - ENT Exam ENT Exam: Mucous Membranes Moist - Neck Exam Neck Exam: Normal Inspection - Respiratory Exam Respiratory Exam: Clear to auscultation, NORMAL BREATHING PATTERN - Cardiovascular Exam Cardiovascular Exam: RRR, +S1, +S2, Murmur - GI/Abdominal Exam GI & Abdominal Exam: Soft, Diffuse Tenderness, Normal Bowel Sounds. absent: Distended, Mass, Rebound - Extremities Exam Extremities Exam: Full ROM Additional comments: R AVF - Neurological Exam Neurological Exam: Alert, Awake, CN II-XII Intact, Oriented x3 - Psychiatric Exam Psychiatric exam: Normal Affect, Normal Mood - Skin Skin Exam: Dry, Normal Color, Warm Assessment and Plan - Assessment and Plan (Free Text) Assessment: Patient is a 43 yo female with ESRD on HD MWF, T1DM, HTN, and h/o CVA who presented with post-prandial diarrhea and abdominal for 3-4 days. Patient missed HD yesterday- she went 07/24, 07/25, and is scheduled for 07/26. Stool studies pending. However, patient now reports constipation and has not had BM in 2 days. Patient was recently hospitalized with PNA and bacteremia. Had 2x enema and 2 BMS. Plan: Abdominal pain, acute- initially with diarrhea, this resolved; now with constipation - AXR: stool retention, no bowel obstruction, no free air - CT A/P: Thick-walled loops of small and large bowel may be exaggerated by under distension; correlate clinically for possibility of enteritis/colitis. - Stool studies pending - Tylenol 650 mg PO Q6H PRN - Fleet enema x1 on 07/25; Repeat Enema x 1 on 07/26, Patient had 2 BMs s/p enema x 2 - Colace 100 mg PO TID - Anusol [place] BID End stage renal dialysis on hemodialysis MWF, chronic - Patient missed HD 07/23, received 07/24, 07/25- scheduled for tomorrow 07/26 - On admission: K 5.3, Ph 6.1, BUN 51, Cr 8.3--> K 4.3, Ph 4.3, BUN 35, Cr 6.9 - BNP 16,800 - PTH elev (266) - CT A/P: Bilateral renal cysts. Indeterminate lobulation/hypodensity at the posterior left upper pole kidney, possibly complex cyst. Renal ultrasound may be considered. - Sensipar 90 mg PO daily - Sevelamer 1600 mg TID - Nephrology consulted (Marcus) - PT- home with services Anemia, acute on chronic - Hgb 7.9 (baseline 9-12) - EPO 10,000 units IV MWF - FOBT pending - Iron studies pending - Monitor H&H - Type and cross - s/p 1 unit transfusion with dialysis today Recent pneumonia and bacteremia - Afebrile, no leukocytosis - CXR: limited atelectasis or infiltrate mid right lung zone laterally - CT A/P: Nodular and ground-glass opacities within the included lung bases. Correlate clinically for possibility of infectious or inflammatory etiologies. - Blood Cx no growth >24 hrs - Duoneb Q6H PRN Type 1 diabetes mellitus, chronic - A1c 5.9 in 11/2017 - Accuchecks ACHS - Hypoglycemia protocol - ISS medium - Lantus 6 units SC QHS - Novolog 3 units SC ACLD - Lyrica 75 mg PO QHS Hypertension, chronic - Vitals Q6H - Labetolol 300 PO twice daily - Minoxidil 5mg PO BID - Clonidine 0.1mg PO BID GERD, chronic - Protonix 40 mg PO daily Thrombocytopenia, chronic, stable - Plts 121 - Avoid anticoagulation - Monitor CBC Ppx: VTE: SCDs, chemical anticoag contraindicated due to anemia and thrombocytopenia GI: Protonix 40 mg PO daily Diet: Renal, diabetic, vegan Disposition: continued dizziness likely 2/2 low blood pressure; medications adjusted, will monitor, likely dc in AM Case discussed with attending, Dr. Knowles.
[2018-07-26] MEDS: (Lantus) Insulin Glargine, Recombinant SC SCH (22:15)
[2018-07-27 00:24] VITALS: RESP 20; TEMP 97.9
[2018-07-27 08:25] VITALS: O2SAT 96
[2018-07-27 09:07] LABS: BASO # 0.1 K/uL (0.0-0.2); BASO % 1.8 % (0.0-2.0); EOS # 0.3 K/uL (0.0-0.7); EOS % 4.9 % (0.0-4.0); HEMOGLOBIN 9.4 g/dL (11.0-16.0); LYMPH # 1.4 K/uL (1.0-4.3); LYMPH % 26.8 % (20.0-40.0); MEAN CORPUSCULAR HEMOGLOBIN 31.4 pg (27.0-31.0); MEAN CORPUSCULAR HGB CONC 34.3 g/dL (33.0-37.0); MEAN PLATELET VOLUME 11.7 fL (7.2-11.7); MONO # 0.5 K/uL (0.0-0.8); MONO % 9.2 % (0.0-10.0); NEUT # 3.1 K/uL (1.8-7.0); NEUT % 57.3 % (50.0-75.0); RED CELL DISTRIBUTION WIDTH 15.4 % (11.5-14.5); WHITE BLOOD COUNT 5.4 K/uL (4.8-10.8)
[2018-07-27 09:14] LABS: MEAN CELL VOLUME 91.5 fL (81.0-99.0)
[2018-07-27 09:25] LABS: ALB/GLOB RATIO 1.3 (1.0-2.1); ALBUMIN 4.1 g/dL (3.5-5.0); ALT/SGPT < 6 U/L (9-52); AST/SGOT 20 U/L (14-36); BLOOD UREA NITROGEN 25 mg/dL (7-17); CALCIUM 8.3 mg/dl (8.6-10.4); GFR NON-AFRICAN AMERICAN 10
[2018-07-27] MEDS: Hydrocortisone 2.5% Rectal Cream(30 gm) PR SCH (10:01)
[2018-07-27] MEDS: (Novolog) Insulin Aspart, Recombinant 100 u/ml 10 ml vial SC SCH ×3 (10:04→12:31)
[2018-07-27] MEDS: Pantoprazole 40 mg EC Tab PO SCH (10:04)
[2018-07-27] MEDS: Labetalol Hydrochloride 300 mg Tab PO SCH (10:07)
[2018-07-27 10:10] VITALS: BP 145/70; PULSE 87
--- NOTE | 2018-07-27 12:57 | CP.PCM.DIS ---
<Juliane Don - Last Filed: 07/27/18 12:52> Provider - Provider Date of Admission: 07/23/18 23:23 Attending physician: Arturo Piedra MD Consults: 07/23/18 22:00 Nephrology Consult Routine Comment: HD Consulting Provider: Gerry Velazquez Consulting Physician: Gerry Velazquez Reason for Consult: HD Time Spent in preparation of Discharge (in minutes): 36 Diagnosis - Discharge Diagnosis (1) Diarrhea Status: Resolved (2) ESRD (end stage renal disease) on dialysis Status: Chronic (3) Hypertensive chronic kidney disease with stage 5 chronic kidney disease or end stage renal disease Status: Chronic (4) Type 1 diabetes mellitus with diabetic nephropathy Status: Chronic (5) Anemia Status: Chronic Hospital Course - Lab Results Lab Results: Micro Results 07/24/18 10:55 Blood-Venous Blood Culture - Preliminary NO GROWTH AFTER 3 DAYS 07/24/18 17:01 Blood-Venous Blood Culture - Preliminary NO GROWTH AFTER 48 HOURS Most Recent Lab Values WBC 5.4 K/uL (4.8-10.8) 07/27/18 08:55 RBC 3.00 Mil/uL (3.80-5.20) L 07/27/18 08:55 Hgb 9.4 g/dL (11.0-16.0) L 07/27/18 08:55 Hct 27.5 % (34.0-47.0) L 07/27/18 08:55 MCV 91.5 fL (81.0-99.0) D 07/27/18 08:55 MCH 31.4 pg (27.0-31.0) H 07/27/18 08:55 MCHC 34.3 g/dL (33.0-37.0) 07/27/18 08:55 RDW 15.4 % (11.5-14.5) H 07/27/18 08:55 Plt Count 114 K/uL (130-400) L 07/27/18 08:55 MPV 11.7 fL (7.2-11.7) 07/27/18 08:55 Neut % (Auto) 57.3 % (50.0-75.0) 07/27/18 08:55 Lymph % (Auto) 26.8 % (20.0-40.0) 07/27/18 08:55 Harper % (Auto) 9.2 % (0.0-10.0) 07/27/18 08:55 Eos % (Auto) 4.9 % (0.0-4.0) H 07/27/18 08:55 Baso % (Auto) 1.8 % (0.0-2.0) 07/27/18 08:55 Neut # (Auto) 3.1 K/uL (1.8-7.0) 07/27/18 08:55 Lymph # (Auto) 1.4 K/uL (1.0-4.3) 07/27/18 08:55 Harper # (Auto) 0.5 K/uL (0.0-0.8) 07/27/18 08:55 Eos # (Auto) 0.3 K/uL (0.0-0.7) 07/27/18 08:55 Baso # (Auto) 0.1 K/uL (0.0-0.2) 07/27/18 08:55 Differential Comment 07/27/18 08:55 Sodium 135 mmol/L (132-148) 07/27/18 08:55 Potassium 4.4 mmol/L (3.6-5.2) 07/27/18 08:55 Chloride 96 mmol/L (98-107) L 07/27/18 08:55 Carbon Dioxide 27 mmol/L (22-30) 07/27/18 08:55 Anion Gap 17 (10-20) 07/27/18 08:55 BUN 25 mg/dL (7-17) H 07/27/18 08:55 Creatinine 4.9 mg/dL (0.7-1.2) H 07/27/18 08:55 Est GFR ( Amer) 12 07/27/18 08:55 Est GFR (Non-Af Amer) 10 07/27/18 08:55 POC Glucose (mg/dL) 140 mg/dL (65-110) H 07/27/18 11:11 Random Glucose 115 mg/dL (65-105) H D 07/27/18 08:55 Calcium 8.3 mg/dl (8.6-10.4) L 07/27/18 08:55 Phosphorus 3.9 mg/dL (2.5-4.5) 07/27/18 08:55 Magnesium 2.0 mg/dL (1.6-2.3) 07/27/18 08:55 % Saturation 26 (20-55) 07/24/18 12:42 Ferritin 977.0 ng/mL 07/24/18 12:42 Total Bilirubin 0.8 mg/dL (0.2-1.3) 07/27/18 08:55 AST 20 U/L (14-36) 07/27/18 08:55 ALT < 6 U/L (9-52) L 07/27/18 08:55 Alkaline Phosphatase 125 U/L (38-126) 07/27/18 08:55 Troponin I < 0.0120 ng/mL (0.00-0.120) 07/23/18 18:39 NT-Pro-B Natriuret Pep 97567 pg/mL (0-450) H 07/23/18 18:39 Total Protein 7.3 g/dL (6.3-8.3) 07/27/18 08:55 Albumin 4.1 g/dL (3.5-5.0) 07/27/18 08:55 Globulin 3.2 gm/dL (2.2-3.9) 07/27/18 08:55 Albumin/Globulin Ratio 1.3 (1.0-2.1) 07/27/18 08:55 Beta HCG, Quant < 2.39 mIU/ML 07/23/18 18:39 PTH Intact Whole Molec 266 pg/mL (14-64) H 07/24/18 12:42 Blood Type A POSITIVE 07/25/18 07:49 Antibody Screen Negative 07/25/18 07:49 - Hospital Course Hospital Course: Upon Admission 43 year old female with past medical history of DM1, HTN, ESRD on dialysis MWF, Hx of CVA presents to ED for 3-4 days of diarrhea. Patient states there has been 3-5 episodes of non-bloody diarrhea per day. Associated with intermittent 5/10 cramping abdominal pain. Symptoms worsen with eating. Patient also complains of chills, bodyaches, palpitations, slight lightheadedness with sitting up, and malaise. She has been eating crackers and drinking fluids. Patient states she missed her dialysis session today due to the pain and diarrhea. Patient denies fever, chest pain, shortness of breath, nausea, vomiting, constipation, hematemesis, hematochezia. Hospital Course 43 year old female admitted for diarrhea. Abdominal XRay showed no obstruction, free air, or stool retention. Patient had missed dialysis prior to admission. CMP was significant for elevated K and creatinine. Nephrology was consulted for possible dialysis. Patient had stool studies ordered but patient started to become constipated unable to provide sample. Dialysis was started on the day after admission and continued on MWF schedule. Patient had 2x enema s/p initial diarrhea because after her diarrhea patient did not have bowel movement for 3 days during admission. After 2x enema patient had 1 BM per enema. Patient stated her abdominal pain had resolved. Patient medications were adjusted due to her HTN. Patient has type 1 DM and medications were adjusted to better manage her sugar control. Patient was discharged with a month supply of prescriptions and information to follow up. Discharge Plan 1. Patient is stable for discharge to home as per Dr. Knowles 2. Patient will need to followup with clinic at [facility] with Dr. Holloway within a week of discharge from hospital. Patient will need to continue dialysis outpatient as scheduled. 3. Patient was prescribed a month supply of medications that she was instructed on how to use. (Refer to EMR for full list) 4. Patient should return to hospital if symptoms worsen or recur. 5. Patient understands the plan as above Disclaimer: Above is a synopsis of patient's current hospital admission. For full report refer to EMR. Discharge Exam - Head Exam Head Exam: ATRAUMATIC, NORMAL INSPECTION - Eye Exam Eye Exam: EOMI, Normal appearance - ENT Exam ENT Exam: Mucous Membranes Dry - Respiratory Exam Respiratory Exam: NORMAL BREATHING PATTERN. absent: Respiratory Distress - Cardiovascular Exam Cardiovascular Exam: REGULAR RHYTHM, +S1, +S2 - GI/Abdominal Exam GI & Abdominal Exam: Normal Bowel Sounds, Soft. absent: Tenderness - Extremities Exam Extremities exam: normal inspection - Neurological Exam Neurological exam: Alert, Oriented x3 - Psychiatric Exam Psychiatric exam: Normal Affect, Normal Mood - Skin Skin Exam: Dry, Intact, Normal Color Discharge Plan - Discharge Medications Prescriptions: Cinacalcet [Sensipar] 90 mg PO DAILY #30 tab cloNIDine [Catapres] 0.1 mg PO BID #60 tab Docusate [Colace] 100 mg PO TID #90 cap Hydrocortisone 2.5% (Rectal) [Anusol-Hc] 1 gm WI BID #1 tube Insulin Aspart, Recombinant [Novolog] 3 unit SC ACLD #1 vial Insulin Glargine, Recombina [Lantus] 6 unit SC HS #1 vial Labetalol Hydrochloride [Normodyne] 300 mg PO BID #60 tab Minoxidil 5 mg PO BID #60 tab Pregabalin [Lyrica] 75 mg PO BID #60 cap Sevelamer Carbonate [Renvela] 1,600 mg PO TIDCC #90 tab - Follow Up Plan Condition: GOOD Disposition: HOME/ ROUTINE Instructions: High Blood Pressure (DC), Dialysis and Diet Additional Instructions: 1. Patient is stable for discharge to home as per Dr. Knowles 2. Patient will need to followup with clinic at [facility] with Dr. Holloway within a week of discharge from hospital. Patient will need to continue dialysis outpatient as scheduled. 3. Patient was prescribed a month supply of medications that she was instructed on how to use. (Refer to EMR for full list) 4. Patient should return to hospital if symptoms worsen or recur. 5. Patient understands the plan as above Referrals: Gerry Velazquez MD [Staff Provider] - [facility] [Outside] <Jacek Knowles - Last Filed: 07/27/18 18:44> Provider - Provider Date of Admission: 07/23/18 23:23 Attending physician: Arturo Piedra MD Consults: 07/23/18 22:00 Nephrology Consult Routine Comment: HD Consulting Provider: Gerry Velazquez Consulting Physician: Gerry Velazquez Reason for Consult: HD Hospital Course - Lab Results Lab Results: Micro Results 07/24/18 17:01 Blood-Venous Blood Culture - Preliminary NO GROWTH AFTER 3 DAYS 07/24/18 10:55 Blood-Venous Blood Culture - Preliminary NO GROWTH AFTER 3 DAYS Most Recent Lab Values WBC 5.4 K/uL (4.8-10.8) 07/27/18 08:55 RBC 3.00 Mil/uL (3.80-5.20) L 07/27/18 08:55 Hgb 9.4 g/dL (11.0-16.0) L 07/27/18 08:55 Hct 27.5 % (34.0-47.0) L 07/27/18 08:55 MCV 91.5 fL (81.0-99.0) D 07/27/18 08:55 MCH 31.4 pg (27.0-31.0) H 07/27/18 08:55 MCHC 34.3 g/dL (33.0-37.0) 07/27/18 08:55 RDW 15.4 % (11.5-14.5) H 07/27/18 08:55 Plt Count 114 K/uL (130-400) L 07/27/18 08:55 MPV 11.7 fL (7.2-11.7) 07/27/18 08:55 Neut % (Auto) 57.3 % (50.0-75.0) 07/27/18 08:55 Lymph % (Auto) 26.8 % (20.0-40.0) 07/27/18 08:55 Harper % (Auto) 9.2 % (0.0-10.0) 07/27/18 08:55 Eos % (Auto) 4.9 % (0.0-4.0) H 07/27/18 08:55 Baso % (Auto) 1.8 % (0.0-2.0) 07/27/18 08:55 Neut # (Auto) 3.1 K/uL (1.8-7.0) 07/27/18 08:55 Lymph # (Auto) 1.4 K/uL (1.0-4.3) 07/27/18 08:55 Harper # (Auto) 0.5 K/uL (0.0-0.8) 07/27/18 08:55 Eos # (Auto) 0.3 K/uL (0.0-0.7) 07/27/18 08:55 Baso # (Auto) 0.1 K/uL (0.0-0.2) 07/27/18 08:55 Differential Comment 07/27/18 08:55 Sodium 135 mmol/L (132-148) 07/27/18 08:55 Potassium 4.4 mmol/L (3.6-5.2) 07/27/18 08:55 Chloride 96 mmol/L (98-107) L 07/27/18 08:55 Carbon Dioxide 27 mmol/L (22-30) 07/27/18 08:55 Anion Gap 17 (10-20) 07/27/18 08:55 BUN 25 mg/dL (7-17) H 07/27/18 08:55 Creatinine 4.9 mg/dL (0.7-1.2) H 07/27/18 08:55 Est GFR ( Amer) 12 07/27/18 08:55 Est GFR (Non-Af Amer) 10 07/27/18 08:55 POC Glucose (mg/dL) 140 mg/dL (65-110) H 07/27/18 11:11 Random Glucose 115 mg/dL (65-105) H D 07/27/18 08:55 Calcium 8.3 mg/dl (8.6-10.4) L 07/27/18 08:55 Phosphorus 3.9 mg/dL (2.5-4.5) 07/27/18 08:55 Magnesium 2.0 mg/dL (1.6-2.3) 07/27/18 08:55 % Saturation 26 (20-55) 07/24/18 12:42 Ferritin 977.0 ng/mL 07/24/18 12:42 Total Bilirubin 0.8 mg/dL (0.2-1.3) 07/27/18 08:55 AST 20 U/L (14-36) 07/27/18 08:55 ALT < 6 U/L (9-52) L 07/27/18 08:55 Alkaline Phosphatase 125 U/L (38-126) 07/27/18 08:55 Troponin I < 0.0120 ng/mL (0.00-0.120) 07/23/18 18:39 NT-Pro-B Natriuret Pep 40299 pg/mL (0-450) H 07/23/18 18:39 Total Protein 7.3 g/dL (6.3-8.3) 07/27/18 08:55 Albumin 4.1 g/dL (3.5-5.0) 07/27/18 08:55 Globulin 3.2 gm/dL (2.2-3.9) 07/27/18 08:55 Albumin/Globulin Ratio 1.3 (1.0-2.1) 07/27/18 08:55 Beta HCG, Quant < 2.39 mIU/ML 07/23/18 18:39 PTH Intact Whole Molec 266 pg/mL (14-64) H 07/24/18 12:42 Blood Type A POSITIVE 07/25/18 07:49 Antibody Screen Negative 07/25/18 07:49 Attending/Attestation - Attestation I have personally seen and examined this patient.: Yes I have fully participated in the care of the patient.: Yes I have reviewed all pertinent clinical information, including history, physical exam and plan: Yes Notes (Text): 07/27/18 18:35 Medical attending: Patient was seen and examined by me. 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 Jacek Knowles
--- NOTE | 2018-07-27 19:51 | CARD ---
APPROVED REPORT Date of service: 07/24/2018 EKG Measurement Heart [id number] <Conclusion> Normal sinus rhythm Normal ECG
== END 2018-07-27 16:00 | disposition home or self-care (01) | DRG 73 ==
LOC: C.ER 17:08 → C.9E 23:23 → C.5S 07-24 01:54
PROVIDERS: ADMIT Family Medicine; ATTEND Family Medicine
PROC: 5A1D70Z Performance of Urinary Filtration, Intermittent, Less than 6 Hours Per Day (ICD-10-PCS; 2018-07-25)
PROC: 30233N1 Transfusion of Nonautologous Red Blood Cells into Peripheral Vein, Percutaneous Approach (ICD-10-PCS; principal; 2018-07-26)
DX: E10.43 Type 1 diabetes mellitus with diabetic autonomic (poly)neuropathy (principal); N18.6 End stage renal disease; I12.0 Hypertensive chronic kidney disease with stage 5 chronic kidney disease or end stage renal disease; N25.81 Secondary hyperparathyroidism of renal origin; K21.9 Gastro-esophageal reflux disease without esophagitis; J44.9 Chronic obstructive pulmonary disease, unspecified; Z99.2 Dependence on renal dialysis; E10.22 Type 1 diabetes mellitus with diabetic chronic kidney disease; E87.5 Hyperkalemia; F41.9 Anxiety disorder, unspecified; F32.9 Major depressive disorder, single episode, unspecified; Z86.73 Personal history of transient ischemic attack (TIA), and cerebral infarction without residual deficits; K31.84 Gastroparesis; D63.1 Anemia in chronic kidney disease; D69.6 Thrombocytopenia, unspecified; E10.21 Type 1 diabetes mellitus with diabetic nephropathy